=== PATIENT | female | born 1935 | race Caucasian/White ===

== ENCOUNTER 2022-05-08 20:33 | Outpatient (CLI) | payer MEDICARE, OTHER, SELFPAY | END 2022-05-08 20:34 | disposition home or self-care (01) | LOC: AMB 05-19 21:34 | PROVIDERS: PCP Surgery; Visit Provider Emergency Medicine Emergency Medical Services | DX: R11.2 Nausea with vomiting, unspecified (principal) | CPT/HCPCS: A0425; A0427 ==

== ENCOUNTER 2022-05-08 20:56 | Emergency (ER) | payer MEDICARE, OTHER, SELFPAY ==
[2022-05-08 21:02] VITALS: BP 160/100; PULSE 89; RESP 16; TEMP 36.4; O2SAT 98
--- NOTE | 2022-05-08 21:29 | ED.GENADULT ---
HPI - General Adult General Chief complaint: Nausea/Vomiting Stated complaint: Nausia Time Seen by Provider: 05/08/22 21:14 History of Present Illness HPI narrative: This 86-year-old woman comes in by ambulance after vomiting once after a meal this evening. She states that she feels out of it but does not have any specific complaints. She seems to be more concerned that she does not know what is going on or what is happening with her. Her daughter is present with her and states that she lives in the senior apartment. Her daughter states that her ability to function with activities of daily living has decreased. The patient does not report any pain and has not had any fevers. She does not have any physical symptoms but seems distressed because she does not know what is going on. Related Data Home Medications Medication Instructions Recorded Confirmed albuterol sulfate 90 mcg/actuation 2 puff INHALATION Q6H PRN 05/08/22 05/08/22 aerosol inhaler aspirin 81 mg capsule 81 mg PO DAILY 05/08/22 05/08/22 benzonatate 100 mg capsule 100 mg PO TID PRN 05/08/22 05/08/22 cholecalciferol (vitamin D3) 50 2,000 unit PO DAILY 05/08/22 05/08/22 mcg (2,000 unit) capsule (Vitamin D3) donepezil 5 mg tablet 5 mg PO HS 05/08/22 05/08/22 levothyroxine 50 mcg tablet 50 mcg PO DAILY 05/08/22 05/08/22 lorazepam 0.5 mg tablet (Ativan) 0.5 mg PO HS PRN 05/08/22 05/08/22 melatonin 3 mg capsule 3 mg PO HS 05/08/22 05/08/22 metoprolol succinate 25 mg 25 mg PO DAILY 05/08/22 05/08/22 tablet,extended release 24 hr omeprazole 20 mg capsule,delayed 20 mg PO DAILY 05/08/22 05/08/22 release risedronate 35 mg tablet 35 mg PO .weekly 05/08/22 05/08/22 sertraline 50 mg tablet 50 mg PO DAILY 05/08/22 05/08/22 tiotropium bromide 18 mcg capsule 1 cap INHALATION DAILY 05/08/22 05/08/22 with inhalation device (Spiriva with HandiHaler) vitamin A-vitamin C-vit E-min 1 tab PO DAILY 05/08/22 05/08/22 tablet (Ocutabs tablet) Allergies Allergy/AdvReac Type Severity Reaction Status Date / Time codeine Allergy Intermediate Hives Verified 05/08/22 21:06 lisinopril Allergy Intermediate Cough Verified 05/08/22 21:06 alendronate sodium AdvReac Intermediate Nausea Verified 05/08/22 21:06 Review of Systems Status of ROS: Reports: 10 or more systems reviewed and unremarkable except as noted in History and below Narrative: Constitutional: No fevers, no weight gain or loss. Eyes: No discharge. No vision changes. HENT: No congestion, no sore throat, no ear pain. Cardiovascular: No chest pain, no palpitations. Respiratory: No shortness of breath, no wheezes, no cough. Gastrointestinal: No abdominal pain, no vomiting, no diarrhea. Genitourinary: No dysuria, no hematuria. Musculoskeletal: Normal range of motion. Skin: No rashes, no pruritis. Neurological: No dizziness, weakness, sensory change, speech change. Endo/Heme/Allergies: No bruising or bleeding. No polydipsia. Pysch: no suicidality, no anxiety, no insomnia. She states that she is not aware of things and does not know what is happening. All other systems reviewed and are negative. 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 HEENT: Normocephalic, atraumatic. Neck: Normal range of motion. Nontender. Supple. Heart: Regular. No murmurs. Normal rate. Intact distal pulses. Lungs: Clear to auscultation. No chest discomfort. No wheezes, rhonchi, or rales. Abdomen: Normal bowel sounds. Nontender. No rebound tenderness. Genitalia: Deferred. Back: No midline tenderness. Normal range of motion. Extremities: Normal range of motion. No injury. Skin: Intact. No rash. Warm. No erythema or pallor. Neurologic: No altered sensation. No weakness. Alert and oriented. Psychiatric: No suicidality. No anxiety or depression. No insomnia. She appears distressed because she feels that she is not in tune with what is happening with her. Nursing notes and vitals signs are reviewed. Const: Vital Signs, click to edit/add: Vital Signs - 24 hr 05/08/22 21:02 Temperature 97.6 F Pulse Rate [Right Pulse Oximeter] 89 Respiratory Rate 16 Blood Pressure [Le ft Upper Arm] 160/100 H Pulse Oximetry 98 Course Vital Signs Vital signs: Initial Vital Signs Temperature 97.6 F 05/08/22 21:02 Temperature Source Temporal Artery Scan 05/08/22 21:02 Pulse Rate 89 05/08/22 21:02 Respiratory Rate 16 05/08/22 21:02 Blood Pressure 160/100 H 05/08/22 21:02 Blood Pressure Mean 120 05/08/22 21:02 Blood Pressure Position Supine 05/08/22 21:02 Pulse Oximetry 98 05/08/22 21:02 Oxygen Delivery Method 05/08/22 21:02 Vital Signs Temperature 97.6 F 05/08/22 21:02 Pulse Rate 89 05/08/22 21:02 Respiratory Rate 16 05/08/22 21:02 Blood Pressure 160/100 H 05/08/22 21:02 Pulse Oximetry 98 05/08/22 21:02 Temperature 97.6 F 05/08/22 21:02 Pulse Rate 89 05/08/22 21:02 Respiratory Rate 16 05/08/22 21:02 Blood Pressure 160/100 H 05/08/22 21:02 Pulse Oximetry 98 05/08/22 21:02 Medical Decision Making MDM Narrative Medical decision making narrative: This patient comes in stating that she does not know who she is and what she is doing. Her vital signs are normal. She also has normal lab and urine results essentially. The patient states that she wants to go home. She does live alone in a senior facility. She is here with her daughter who states that it seems that the patient's functions for her activities of daily living in are declining. She is okay to take her back home and will work on arrangements for a assisted living or memory care facility. Lab Data Labs: Lab Results 05/08/22 05/08/22 05/08/22 Range/Units 21:20 21:43 21:43 WBC 4.77 (4.50-11.00) K/uL RBC 4.54 (4.00-5.20) m/uL Hgb 12.1 (12.0-16.0) gm/dL Hct 39.4 (33.0-51.0) % MCV 87 (80-100) fL MCH 27 (26-34) pg MCHC 31 L (32-36) gm/dL RDW Coeff of Aristeo 14.3 (11.5-15.5) % Plt Count 218 (140-440) K/uL Neut % (Auto) 67.8 (42.0-72.0) % Lymph % (Auto) 20.8 (20-44) % [place] % (Auto) 7.3 (0.0-11.0) % Eos % (Auto) 2.9 (0.0-7.0) % Baso % (Auto) 1.0 (0.0-3.0) % Neut # (Auto) 3.23 (1.7-7.0) K/uL Lymph # (Auto) 0.99 (0.90-2.90) K/uL [place] # (Auto) 0.30 (0.00-0.90) K/UL Eos # (Auto) 0.14 (0.00-0.50) K/uL Baso # (Auto) 0.05 (0.00-0.30) K/uL Abs Immat Gran (auto) 0.01 (0.00-0.30) K/uL Sodium 138 (135-149) mmol/L Potassium 3.7 (3.6-5.1) mmol/L Chloride 104 (96-114) mmol/L Carbon Dioxide 26 (20-32) mmol/L BUN 20 (7-30) mg/dL Creatinine 0.9 (0.5-1.5) mg/dL Estimated GFR 62 ml/min Glucose 150 H (60-115) mg/dL Calcium 9.1 (8.4-10.6) mg/dL Urine Color Yellow (Yellow) Urine Appearance Clear (Clear) Urine pH 5.5 (5.0-8.5) Ur Specific [place] 1.015 (1.000-1.030) Urine Protein 1+ A (Negative) Urine Glucose (UA) Negative (Negative) Urine Ketones Negative (Negative) Urine Blood Trace-intact A (Negative) Urine Nitrite Negative (Negative) Urine Bilirubin Negative (Negative) Urine Urobilinogen 0.2 (0.2-1.0) Ur Leukocyte Esterase Negative (Negative) Urine RBC 0-2 (0-2) Urine WBC 0-2 (0-5) Ur Squamous Epith Cells None (None-Few) Urine Bacteria None (None) Discharge Plan Discharge Clinical Impression: Acute on chronic alteration in mental status Patient Disposition: Home, Self-Care Condition: Unchanged Instructions: Altered Mental Status (ED) Additional Instructions: Follow-up with primary physician. Return if worsening symptoms happen. Prescriptions: No Action albuterol sulfate 90 mcg/actuation HFA aerosol inhaler 2 puff INHALATION Q6H PRN0RF donepezil 5 mg tablet 5 mg PO HS 0RF levothyroxine 50 mcg tablet 50 mcg PO DAILY 0RF metoprolol succinate 25 mg tablet extended release 24 hr 25 mg PO DAILY 0RF omeprazole 20 mg capsule,delayed release(DR/EC) 20 mg PO DAILY 0RF risedronate 35 mg tablet 35 mg PO .weekly 0RF sertraline 50 mg tablet 50 mg PO DAILY 0RF Spiriva with HandiHaler 18 mcg capsule, w/inhalation device 1 cap INHALATION DAILY 0RF melatonin 3 mg capsule 3 mg PO HS 0RF Ocutabs Tablet 1 tab PO DAILY 0RF lorazepam [Ativan] 0.5 mg tablet 0.5 mg PO HS PRN0RF aspirin 81 mg capsule 81 mg PO DAILY 0RF cholecalciferol (vitamin D3) [Vitamin D3] 50 mcg (2,000 unit) capsule 2,000 unit PO DAILY 0RF benzonatate 100 mg capsule 100 mg PO TID PRN0RF Follow Up/Referrals: Gabriel Orozco MD [Primary Care Provider] - Stand Alone Forms: [facility] Info Instructions
[2022-05-08 21:50] LABS: Basophils Absolute Auto 0.05 K/uL (0.00-0.30); Eosinophils Absolute Auto 0.14 K/uL (0.00-0.50); Eosinophils Percent Auto 2.9 % (0.0-7.0); Hematocrit 39.4 % (33.0-51.0); Hemoglobin* 12.1 gm/dL (12.0-16.0); Immature Granulocytes Abs Auto 0.01 K/uL (0.00-0.30); Lymphocytes Absolute Auto 0.99 K/uL (0.90-2.90); Lymphocytes Percent Auto 20.8 % (20-44); Mean Corpuscular HGB Conc 31 gm/dL (32-36); Mean Corpuscular Hemoglobin 27 pg (26-34); Mean Corpuscular Volume 87 fL (80-100); Monocytes Percent Auto 7.3 % (0.0-11.0); Neutrophils Absolute Auto 3.23 K/uL (1.7-7.0); Neutrophils Percent Auto 67.8 % (42.0-72.0); Platelet Count* 218 K/uL (140-440); RDW Coefficient of Variation % 14.3 % (11.5-15.5); Red Blood Count 4.54 m/uL (4.00-5.20); White Blood Count* 4.77 K/uL (4.50-11.00)
[2022-05-08 22:08] LABS: Slide Review Reflex No
[2022-05-08 22:14] LABS: Chloride* 104 mmol/L (96-114)
[2022-05-08 22:15] LABS: Potassium* 3.7 mmol/L (3.6-5.1); Sodium* 138 mmol/L (135-149)
[2022-05-08 22:17] LABS: Creatinine* 0.9 mg/dL (0.5-1.5); Estimated Glomerular Filt Rate 62 ml/min
[2022-05-08 22:18] LABS: Blood Urea Nitrogen* 20 mg/dL (7-30); Calcium* 9.1 mg/dL (8.4-10.6); Carbon Dioxide* 26 mmol/L (20-32); Glucose* 150 mg/dL (60-115)
[2022-05-08 22:19] LABS: Appearance Urine Clear (Clear); Bilirubin Urine Negative (Negative); Blood Urine Trace-intact (Negative); Color Urine Yellow (Yellow); Glucose Urine Negative (Negative); Ketones Urine Negative (Negative); Leukocyte Esterase Urine Negative (Negative); Nitrite Urine Negative (Negative); Protein Urine 1+ (Negative); Specific Gravity Urine 1.015 (1.000-1.030); Urobilinogen Urine 0.2 (0.2-1.0); pH Urine 5.5 (5.0-8.5)
[2022-05-08 22:44] LABS: RBC Urine 0-2 (0-2); WBC Urine 0-2 (0-5)
[2022-05-08 23:14] VITALS: BP 145/89; PULSE 78; PULSE 80; RESP 16; TEMP 36.4; O2SAT 98
== END 2022-05-08 23:15 | disposition home or self-care (01) ==
PROVIDERS: Emergency Provider Emergency Medicine Emergency Medical Services; PCP Surgery
DX: R41.82 Altered mental status, unspecified (principal); Z73.9 Problem related to life management difficulty, unspecified
CPT/HCPCS: 36415; 80048; 81001; 85025; 99283; 99284

== ENCOUNTER 2022-06-16 08:47 | Outpatient (CLI) | payer MEDICARE, OTHER, SELFPAY | END 2022-06-16 08:48 | disposition home or self-care (01) | LOC: AMB 06-18 05:46 | PROVIDERS: PCP Surgery; Visit Provider Family Medicine | DX: S29.9XXA Unspecified injury of thorax, initial encounter (principal); W18.30XA Fall on same level, unspecified, initial encounter; Y92.003 Bedroom of unspecified non-institutional (private) residence as the place of occurrence of the external cause | CPT/HCPCS: A0425; A0427 ==

== ENCOUNTER 2022-06-16 09:10 | Observation (INO) | payer MEDICARE, OTHER, SELFPAY ==
[2022-06-16] VITALS (19 sets, daily range): BP systolic 111–167; BP diastolic 58–111; PULSE 62–90; RESP 14–18; TEMP 36.8–37; O2SAT 85–98; BMI 22.9
--- NOTE | 2022-06-16 09:36 | CRLHL7_ITS ---
For Patients: As a result of the Cures Act, medical imaging exams and procedure reports are released immediately into your electronic medical record. You may view this report before your referring provider. If you have questions, please contact your health care provider. INDICATION: Fall. COMPARISON: January 14, 2022. TECHNIQUE: Single view chest radiograph with 2 views of the ribs. Findings : Similar enlarged cardiomediastinal contours. New right lower lobe basilar opacity likely atelectasis. New small right pleural effusion. The no definite pneumothorax. Several right-sided rib fractures are mildly displaced involving the approximate 7th and 8th ribs. IMPRESSION: Mildly displaced right-sided 7th and 8th rib fractures with associated small right-sided pleural effusion, likely hemothorax. No definite pneumothorax. Dictated by Timbo Hylton MD @ 06/16/2022 10:50:00 AM (Electronically Signed)
--- NOTE | 2022-06-16 09:38 | ED_ITS ---
HPI - General Adult General Chief complaint: Rib Pain Stated complaint: Fall Time Seen by Provider: 06/16/22 09:22 Source: patient and family Mode of arrival: EMS Limitations: no limitations History of Present Illness HPI narrative: Elderly female coming in today after sustaining a fall 3 days ago. She is concerned about right-sided rib pain. She is here with her daughter who is concerned that over the last 24 hours the patient has been complaining of increasing rib pain. Because of this, perhaps, she has had a decreased appetite and this morning was unable to get out of her chair. Patient states that the pain is really bothering her. Pain is located over the right posterolateral upper ribs. Pain does not radiate. She denies feeling short of breath. Denies fevers or chills. States that yesterday she just did not feel hungry. She denies any anterior chest pain, or abdominal pain. She did not hit her head or lose consciousness. The fall was unwitnessed but the patient states that she was holding onto her walker with 1 hand in leaning over when she lost balance and fell onto her side. The walker fell on top of her. She was able to get the walker off of her but she required help from her son getting off of the floor. Patient does not know how long she waited on the floor for, daughter states it likely was not longer than 30 minutes has both she and the brother were away at the time when this occurred picking up the patient's bed. They have been slowly moving into [facility] over the last 2-3 weeks, into assisted living. She has not been nauseated or has vomited since the fall occurred. She has had no altered mental status, confusion, slurred speech or focal weakness. Denies any urinary or bowel changes. She denies any coughing that is new. Patient's daughter does state that the patient has lost about 10-15 lb over the last couple of weeks. She attributes this to the moving, and the patient has had a smaller appetite during this time. EMS was called today because the patient could hardly secondary to pain. Related Data Home Medications Medication Instructions Recorded Confirmed albuterol sulfate 90 mcg/actuation 2 puff inhalation Q6H PRN 05/08/22 05/08/22 aerosol inhaler aspirin 81 mg capsule 81 mg PO DAILY 05/08/22 06/16/22 cholecalciferol (vitamin D3) 50 2,000 unit PO DAILY 05/08/22 06/16/22 mcg (2,000 unit) capsule (Vitamin D3) donepezil 5 mg tablet 5 mg PO HS 05/08/22 06/16/22 levothyroxine 50 mcg tablet 50 mcg PO DAILY 05/08/22 06/16/22 lorazepam 0.5 mg tablet (Ativan) 0.5 mg PO HS PRN 05/08/22 06/16/22 melatonin 3 mg capsule 3 mg PO HS 05/08/22 06/16/22 metoprolol succinate 25 mg 25 mg PO DAILY 05/08/22 06/16/22 tablet,extended release 24 hr omeprazole 20 mg capsule,delayed 20 mg PO DAILY 05/08/22 06/16/22 release risedronate 35 mg tablet 35 mg PO .weekly 05/08/22 06/16/22 sertraline 50 mg tablet 50 mg PO DAILY 05/08/22 06/16/22 tiotropium bromide 18 mcg capsule 1 cap inhalation DAILY 05/08/22 06/16/22 with inhalation device (Spiriva with HandiHaler) vitamin A-vitamin C-vit E-min 1 tab PO DAILY 05/08/22 06/16/22 tablet (Ocutabs tablet) acetaminophen 650 mg 1,300 mg PO Q8H PRN 06/16/22 06/16/22 tablet,extended release (Arthritis Pain Relief (acetaminophen) ER) Allergies Allergy/AdvReac Type Severity Reaction Status Date / Time codeine Allergy Intermediate Hives Verified 06/16/22 09:19 lisinopril Allergy Intermediate Cough Verified 06/16/22 09:19 alendronate sodium AdvReac Intermediate Nausea Verified 06/16/22 09:19 Review of Systems Status of ROS: Reports: 10 or more systems reviewed and unremarkable except as noted in History and below [facility] Medical History Adrenal mass COPD (chronic obstructive pulmonary disease) Essential hypertension GERD (gastroesophageal reflux disease) Hiatal hernia Hypothyroidism 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 Alert and oriented. Answers questions appropriately. Mood and affect are appropriate. Thoughts are goal oriented and rational. No tangential or magical thinking noted. Patient speaks in full sentences without needing to catch her breath. She is hard of hearing. She does not appear ill or toxic. She appears to be in good spirits. HEENT: Normocephalic atraumatic. Pupils are equally round reactive to light. Extraocular muscles are intact. Conjunctivae are moist without any icterus noted. Slightly dry mucous membranes. Posterior pharynx is normal. Neck is soft and supple. Cardiovascular: Heart is regular rate and rhythm S1 and S2 are present without any murmurs. Occasional extra beat noted. Lungs: Clear to auscultation bilaterally no wheezes rhonchi or rales are appreciated. Patient takes deep breaths without significant discomfort. She has tenderness to palpation of the posterolateral ribs. No pain of the anterior chest wall. No bruising, abrasions, or erythema noted to the lateral chest wall where her pain is located. Abdomen: Soft and nontender nondistended with normal bowel sounds. No guarding or rebound. Extremities: Bilateral lower extremities are without edema. Normal DP and PT pulses. Skin: Well perfused without any obvious rashes. Back: No tenderness to palpation over the cervical, thoracic or lumbar spine. There is no bruising or erythema noted on the back. Patient is unable to sit up in bed secondary to pain. However, lying down she appears comfortable. Const: Vital Signs, click to edit/add: Vital Signs - 24 hr 06/16/22 09:15 06/16/22 09:19 06/16/22 09:19 Temperature 98.3 F Pulse Rate 77 Pulse Rate [Pulse Oximeter] 84 Respiratory Rate 14 Blood Pressure Blood Pressure [Ri ght Upper Arm] 165/90 H 165/90 H Pulse Oximetry 95 94 Oxygen Delivery Me thod Room Air 06/16/22 09:33 06/16/22 09:35 06/16/22 09:42 Temperature Pulse Rate 75 64 78 Pulse Rate [Pulse Oximeter] Respiratory Rate Blood Pressure 162/111 H 160/94 H Blood Pressure [Ri ght Upper Arm] Pulse Oximetry 96 94 96 Oxygen Delivery Me thod 06/16/22 09:43 06/16/22 10:13 06/16/22 10:27 Temperature Pulse Rate 68 75 62 Pulse Rate [Pulse Oximeter] Respiratory Rate Blood Pressure 167/82 H Blood Pressure [Ri ght Upper Arm] Pulse Oximetry 96 95 94 Oxygen Delivery Me thod 06/16/22 10:28 Temperature Pulse Rate 65 Pulse Rate [Pulse Oximeter] Respiratory Rate Blood Pressure Blood Pressure [Ri ght Upper Arm] Pulse Oximetry 89 Oxygen Delivery Me thod Course Reevaluation(s) Reevaluation #1: At rest, patient is not having any significant discomfort however any movement causes significant pain to the point where she cannot get up out of bed at all. When asked if she wanted more pain medication patient stated that as long as she sits still she was fine and so she refused. Vital Signs Vital signs: Initial Vital Signs Blood Pressure 165/90 H 06/16/22 09:15 Blood Pressure Mean 115 06/16/22 09:15 Blood Pressure Position Supine 06/16/22 09:15 Vital Signs Blood Pressure 165/90 H 06/16/22 09:15 Temperature 98.3 F 06/16/22 09:19 Pulse Rate 65 06/16/22 10:28 Respiratory Rate 14 06/16/22 09:19 Blood Pressure 167/82 H 06/16/22 10:27 Pulse Oximetry 89 06/16/22 10:28 Oxygen Delivery Method 06/16/22 09:19 Medical Decision Making [facility] Narrative Medical decision making narrative: 86-year-old female status post a fall and to broken ribs, probable small hemothorax. Patient received pain medicine in the ambulance which she states helped with her pain quite a bit. However, despite this, she was still unable to get up while she was in the hospital to use the bathroom. At this time I do not see how patient will thrive without pain management and extra help to do her daily activities, therefore patient will be admitted for observation and further management. Medical Records Medical records reviewed: Yes I reviewed the patient's medical records Lab Data Lab results reviewed: Yes I reviewed the patient's lab results Labs: Lab Results 06/16/22 06/16/22 06/16/22 Range/Units 10:16 10:16 10:16 WBC 6.18 (4.50-11.00) K/uL RBC 4.73 (4.00-5.20) m/uL Hgb 12.8 (12.0-16.0) gm/dL Hct 40.8 (33.0-51.0) % MCV 86 (80-100) fL MCH 27 (26-34) pg MCHC 31 L (32-36) gm/dL RDW Coeff of Aristeo 14.5 (11.5-15.5) % Plt Count 214 (140-440) K/uL Neut % (Auto) 76.9 H (42.0-72.0) % Lymph % (Auto) 12.1 L (20-44) % [place] % (Auto) 9.4 (0.0-11.0) % Eos % (Auto) 1.1 (0.0-7.0) % Baso % (Auto) 0.3 (0.0-3.0) % Neut # (Auto) 4.80 (1.7-7.0) K/uL Lymph # (Auto) 0.70 L (0.90-2.90) K/uL [place] # (Auto) 0.60 (0.00-0.90) K/UL Eos # (Auto) 0.07 (0.00-0.50) K/uL Baso # (Auto) 0.02 (0.00-0.30) K/uL Abs Immat Gran (auto) 0.01 (0.00-0.30) K/uL Sodium 135 (135-149) mmol/L Potassium 4.0 (3.6-5.1) mmol/L Chloride 105 (96-114) mmol/L Carbon Dioxide 25 (20-32) mmol/L BUN 16 (7-30) mg/dL Creatinine 0.7 (0.5-1.5) mg/dL Estimated GFR 84 ml/min Glucose 142 H (60-115) mg/dL Lactate (0.5-1.9) mmol/L Calcium 9.1 (8.4-10.6) mg/dL Total Bilirubin 0.6 Cancelled (0.1-1.5) mg/dL Direct Bilirubin 0.2 Cancelled (0.0-0.5) mg/dL AST 23 Cancelled (12-35) U/L ALT 13 Cancelled (4-35) U/L Alkaline Phosphatase 69 Cancelled (40-150) U/L Troponin I < 0.01 L Cancelled (0.01-0.04) ng/mL C-Reactive Protein 1.1 H (0.5-1.0) mg/dL Total Protein 6.9 Cancelled (6.0-8.3) g/dL Albumin 3.9 Cancelled (3.3-5.0) g/dL SARS-CoV-2 (PCR) (Negative) 06/16/22 06/16/22 Range/Units 10:16 10:53 WBC (4.50-11.00) K/uL RBC (4.00-5.20) m/uL Hgb (12.0-16.0) gm/dL Hct (33.0-51.0) % MCV (80-100) fL MCH (26-34) pg MCHC (32-36) gm/dL RDW Coeff of Aristeo (11.5-15.5) % Plt Count (140-440) K/uL Neut % (Auto) (42.0-72.0) % Lymph % (Auto) (20-44) % [place] % (Auto) (0.0-11.0) % Eos % (Auto) (0.0-7.0) % Baso % (Auto) (0.0-3.0) % Neut # (Auto) (1.7-7.0) K/uL Lymph # (Auto) (0.90-2.90) K/uL [place] # (Auto) (0.00-0.90) K/UL Eos # (Auto) (0.00-0.50) K/uL Baso # (Auto) (0.00-0.30) K/uL Abs Immat Gran (auto) (0.00-0.30) K/uL Sodium (135-149) mmol/L Potassium (3.6-5.1) mmol/L Chloride (96-114) mmol/L Carbon Dioxide (20-32) mmol/L BUN (7-30) mg/dL Creatinine (0.5-1.5) mg/dL Estimated GFR ml/min Glucose (60-115) mg/dL Lactate 1.0 (0.5-1.9) mmol/L Calcium (8.4-10.6) mg/dL Total Bilirubin (0.1-1.5) mg/dL Direct Bilirubin (0.0-0.5) mg/dL AST (12-35) U/L ALT (4-35) U/L Alkaline Phosphatase (40-150) U/L Troponin I (0.01-0.04) ng/mL C-Reactive Protein (0.5-1.0) mg/dL Total Protein (6.0-8.3) g/dL Albumin (3.3-5.0) g/dL SARS-CoV-2 (PCR) Negative SARS-CoV-2 (Negative) Imaging Data Rib x-rays: Attestation: I have reviewed the pertinent imaging results. Radiologist's impression: Findings : Similar enlarged cardiomediastinal contours. New right lower lobe basilar opacity likely atelectasis. New small right pleural effusion. The no definite pneumothorax. Several right-sided rib fractures are mildly displaced involving the approximate 7th and 8th ribs. IMPRESSION: Mildly displaced right-sided 7th and 8th rib fractures with associated small right-sided pleural effusion, likely hemothorax. No definite pneumothorax. ECG Data Attestation: I personally reviewed and interpreted this ECG as follows: (Sinus rhythm with premature atrial complexes, pulse 82) Discharge Plan Discharge Clinical Impression: Frail elderly, Fracture, ribs Patient Disposition: Admitted As Inpatient Condition: Stable
[2022-06-16] MEDS: 0.9 % SODIUM CHLORIDE 500 ML 500 ML IV (10:27)
[2022-06-16 10:28] LABS: Basophils Absolute Auto 0.02 K/uL (0.00-0.30); Basophils Percent Auto 0.3 % (0.0-3.0); Eosinophils Absolute Auto 0.07 K/uL (0.00-0.50); Eosinophils Percent Auto 1.1 % (0.0-7.0); Hematocrit 40.8 % (33.0-51.0); Hemoglobin* 12.8 gm/dL (12.0-16.0); Immature Granulocytes Abs Auto 0.01 K/uL (0.00-0.30); Lymphocytes Percent Auto 12.1 % (20-44); Mean Corpuscular HGB Conc 31 gm/dL (32-36); Mean Corpuscular Hemoglobin 27 pg (26-34); Mean Corpuscular Volume 86 fL (80-100); Monocytes Percent Auto 9.4 % (0.0-11.0); Neutrophils Percent Auto 76.9 % (42.0-72.0); Platelet Count* 214 K/uL (140-440); RDW Coefficient of Variation % 14.5 % (11.5-15.5); Red Blood Count 4.73 m/uL (4.00-5.20); Slide Review Reflex No; White Blood Count* 6.18 K/uL (4.50-11.00)
--- NOTE | 2022-06-16 10:29 | ED.NURSE ---
A fib alarm on monitor, MD notified. Repeat EKG done. A-fib not shown on EKG.
[2022-06-16 10:39] LABS: Albumin* 3.9 g/dL (3.3-5.0); Chloride* 105 mmol/L (96-114)
[2022-06-16 10:40] LABS: Sodium* 135 mmol/L (135-149)
[2022-06-16 10:42] LABS: Creatinine* 0.7 mg/dL (0.5-1.5); Estimated Glomerular Filt Rate 84 ml/min
[2022-06-16 10:43] LABS: Alanine Aminotransferase* 13 U/L (4-35); Alkaline Phosphatase* 69 U/L (40-150); Aspartate Amino Transferase* 23 U/L (12-35); Bilirubin Direct* 0.2 mg/dL (0.0-0.5); Bilirubin Total* 0.6 mg/dL (0.1-1.5); Blood Urea Nitrogen* 16 mg/dL (7-30); Carbon Dioxide* 25 mmol/L (20-32); Glucose* 142 mg/dL (60-115); Total Protein* 6.9 g/dL (6.0-8.3)
[2022-06-16 10:44] LABS: Calcium* 9.1 mg/dL (8.4-10.6)
[2022-06-16 10:46] LABS: C Reactive Protein* 1.1 mg/dL (0.5-1.0)
--- NOTE | 2022-06-16 10:57 | ED.NURSE ---
Attempted to collect UA, pt unable to sit up to transfer to wheelchair due to pain in R ribs. Pt requesting to use bedpan to provide sample. Pt already incontinent of urine in brief. Brief removed, pt urinated before bedpan was placed under her. Pt cleaned and new brief applied.
[2022-06-16 11:00] LABS: Troponin I* < 0.01 ng/mL (0.01-0.04)
--- NOTE | 2022-06-16 11:08 | ED.NURSE ---
After 1030 BP reading, filing writer noted small hematoma on pt's right anterior bicep, Hematoma was approx pen-sized. BP's discontinued from R arm. At 1100, filing writer noticed hematoma was slightly larger. Measurement of hematoma now approx 2cmx1.5cm. notified, filing writer continuing to withhold from BP readings on R arm at this time.
--- NOTE | 2022-06-16 11:13 | W.PC.EDHO ---
Primary Language: Occitan ([facility]) Preferred Language: Orientation Status: [] Alert & Oriented [x] Slight Confusion [] Known Dx Dementia Transfers By: [] Assist of 1 [x] Assist of 2 [] Lift Active Medications Discontinued Medications Generic Name Dose Route Start Last Admin Trade Name Krissy PRN Reason Stop Dose Admin Sodium Chloride 500 mls @ 500 mls/hr 06/16/22 09:45 06/16/22 10:27 0.9 % Sodium Chloride 500 Ml IV 06/16/22 10:44 500 mls/hr .Q1H ONE Administration Description of Symptoms ED Triage Present Problem Patient was putting belongings away, kneeling on Description floor. Fell to the side, hitting right ribs on a chest. This happened . Pain to ribs since, tylenol not helping. EMS administered 25mcg fentanyl, blood sugar 188. ED Triage Date of Onset of 06/13/22 Symptoms Moline Coma Scale Moline coma scale total score 15 Pain Pain Description [Right Upper Sharp Lateral Abdomen] Pain Description [Right Upper Sharp Lateral Abdomen] Pain Intensity [Right Upper 9 Lateral Abdomen] Pain Intensity [Right Upper 10 Lateral Abdomen] Pain Intensity 10 Pain Intensity 9 Pain Scale Used [Right Upper Numeric (1 - 10) Lateral Abdomen] Pain Scale Used [Right Upper Numeric (1 - 10) Lateral Abdomen] Pain Scale Used Numeric (1 - 10) Pain Scale Used Numeric (1 - 10) IV Insertion/Site Date of IV Line Insertion [ 06/16/22 Left Antecubital] Oxygen Administration Pulse Oximetry 89 Pulse Oximetry 94 Pulse Oximetry 95 Pulse Oximetry 96 Pulse Oximetry 96 Pulse Oximetry 94 Pulse Oximetry 96 Pulse Oximetry 94 Pulse Oximetry 95 Oxygen Delivery Method Room Air Cardiac Monitoring EKG Method 12 Lead
--- NOTE | 2022-06-16 11:14 | ED.NURSE ---
Pt complaining of itching throughout L arm. IV site checked with Kenya RN. IV appears patent, skin color and appearance WNL. NS infusion running without issue. Cool washcloth applied to pt L arm to relieve itching sensation. notified.
--- NOTE | 2022-06-16 11:20 | ED.NURSE ---
Pt reporting pain in her R ribs. Dumper Bailer Operator asked if pt wanted medication for pain, pt declined at this time.
--- NOTE | 2022-06-16 11:48 | ED.NURSE ---
Pt incontinent of urine again, pt cleaned and new brief applied. Red rash noted in pt L inguinal area during brief change. Skin on pt perineum and genitals also appears reddened. Pt also complaining of continued itching in her L arm near IV site. IV appears patent. Slasher Hand and Anna ROCK assessed IV site and patency. Pt does have a bulge under skin on medial aspect of L arm (and R arm) near artery. When IV flushed, no change in bulge size, appearance, or sensation. NS infusion continued after assessment. MD Cesar notified of all these findings.
[2022-06-16 11:52] LABS: SARS PCR* Negative SARS-CoV-2 (Negative)
--- NOTE | 2022-06-16 12:10 | ED.NURSE ---
Pt hematoma on R bicep reassessed. No change in size, still 2cmx1.5cm.
--- NOTE | 2022-06-16 12:20 | ED.NURSE ---
Pt taken down to floor by House Sup.
[2022-06-16] MEDS: LIDOCAINE 5% PATCH 1 PATCH TRANSDERMA (13:48)
[2022-06-16 14:21] LABS: Appearance Urine Clear (Clear); Bilirubin Urine Negative (Negative); Blood Urine Trace-intact (Negative); Color Urine Yellow (Yellow); Glucose Urine Negative (Negative); Ketones Urine Negative (Negative); Leukocyte Esterase Urine Negative (Negative); Nitrite Urine Negative (Negative); Protein Urine Negative (Negative); Specific Gravity Urine 1.015 (1.000-1.030); Urobilinogen Urine 0.2 (0.2-1.0)
[2022-06-16 14:25] LABS: Amorphous Sediment Urine Few; Bacteria Urine Few; RBC Urine 0-2 (0-2); Squamous Epithelial Cell Urine Moderate (None-Few); WBC Urine 0-2 (0-5)
--- NOTE | 2022-06-16 14:44 | PM.IMHP1 ---
Hospitalist- H&P: HPI History of Present Illness Time Seen by Provider: 12:00 Date Seen: 06/16/22 Chief complaint: Fall Narrative: Amberly Darnell is a 86 year old woman who less than 1 week ago moved from [facility] in [place] to another, [place]. In the process of making that move this past , she was sitting on a chair and leaned to move some kelley when she fell off of the chair striking a [place] chest with the right posterior lateral aspect of her chest and then to the floor. Denies loss of consciousness from this episode. She has had right posterior lateral chest discomfort since then that has not been amenable to acetaminophen analgesia. She presents to the emergency department for assessment of the same. The chest pain is constant. Chest pain is more intense with deep breathing. Chest pain not as bothersome if she does not take deep breaths. Again the pain is persistent and unrelenting and not responding to acetaminophen analgesia therapy. Denies any associated chest heaviness, pressure, or tightness. Denies syncope or near-syncope. Denies palpitations or fluttering. Denies shortness of breath at rest, dyspnea with exertion, paroxysmal nocturnal dyspnea, or orthopnea. Denies cough. Denies fevers, rigors, or diaphoresis. Denies nausea or vomiting. Has had a decreased appetite with the increased pain. Has had no blood loss of any sort. Has had no other trauma or injury or travel. Has not had any other recent illnesses. Review of Systems Status of ROS: Reports: 10 or more systems reviewed and unremarkable except as noted in History and below Narrative: Known to have osteoporosis. Taking her medication regimen for the same at this juncture. Has had no focal motor neurologic deficits. It is becoming increasingly difficult for her to care for herself independently in her home because of this pain. Does use a walker for ambulation. Difficult for her to use her walker due to the discomfort in the right posterior lateral aspect of her chest. Denies dysuria, urgency, frequency, hematuria. On asking her multiple times she does acknowledge that at times she does have urinary incontinence. Denies diarrhea or constipation. No blood loss of any sort. No other extremity pain. No other neurologic changes. Peripheral neuropathy pain adequately managed. Denies recent worsening of breathing concerns. Taking her medications as prescribed. Following with her primary care physician, Dr. Orozco. Requests an attempt at resuscitation if cardiopulmonary demise occurs in a witnessed setting. Otherwise request comfort measures only. Designates her daughter and son as her fierro of dat instructor for health should that be required, in the order of daughter and then son. 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 Osteoporosis Paroxysmal SVT (supraventricular tachycardia) Peripheral neuropathy Sensorineural hearing loss of both ears Spinal stenosis Vitamin D deficiency Surgical History History of hysterectomy Previous back surgery S/P knee replacement S/P laparotomy S/P repair of paraesophageal hernia Status post appendectomy Status post left knee replacement Status post tonsillectomy Family History Father COPD (chronic obstructive pulmonary disease) High blood pressure Mother Dementia Psychiatric illness Social History Smoking Status: Never smoker Do you use any of these nicotine containing products: None Second hand tobacco smoke exposure: No How often do you have a drink containing alcohol: monthly or less How often do you have six or more drinks on one occasion: Never AUDIT-C Alcohol total score: 1 Non-prescribed substance use: denies use Gender Identity: female Meds Home Medications and Allergies Home Medications Medication Instructions Recorded Confirmed Type albuterol sulfate 90 mcg/actuation 2 puff inhalation Q6H PRN 05/08/22 06/16/22 History aerosol inhaler aspirin 81 mg capsule 81 mg PO DAILY 05/08/22 06/16/22 History cholecalciferol (vitamin D3) 50 2,000 unit PO DAILY 05/08/22 06/16/22 History mcg (2,000 unit) capsule (Vitamin D3) donepezil 5 mg tablet 5 mg PO HS 05/08/22 06/16/22 History levothyroxine 50 mcg tablet 50 mcg PO DAILY 05/08/22 06/16/22 History lorazepam 0.5 mg tablet (Ativan) 0.5 mg PO HS PRN 05/08/22 06/16/22 History melatonin 3 mg capsule 3 mg PO HS 05/08/22 06/16/22 History metoprolol succinate 25 mg 25 mg PO DAILY 05/08/22 06/16/22 History tablet,extended release 24 hr omeprazole 20 mg capsule,delayed 20 mg PO DAILY 05/08/22 06/16/22 History release risedronate 35 mg tablet 35 mg PO .weekly 05/08/22 06/16/22 History sertraline 50 mg tablet 50 mg PO DAILY 05/08/22 06/16/22 History tiotropium bromide 18 mcg capsule 1 cap inhalation DAILY 05/08/22 06/16/22 History with inhalation device (Spiriva with HandiHaler) acetaminophen 650 mg 1,300 mg PO Q8H PRN 06/16/22 06/16/22 History tablet,extended release (Arthritis Pain Relief (acetaminophen) ER) vit A 300 mcg-C 200 mg-E 27 1 tab PO DAILY 06/16/22 06/16/22 History mg-lutein 2 mg and minerals tablet (I-Maribel) Allergies Allergy/AdvReac Type Severity Reaction Status Date / Time codeine Allergy Intermediate Hives Verified 06/16/22 09:19 lisinopril Allergy Intermediate Cough Verified 06/16/22 09:19 alendronate sodium AdvReac Intermediate Nausea Verified 06/16/22 09:19 Exam Narrative: Exam Narrative: Appears comfortable when I see her. No acute distress. Laying comfortably on exam table emergency department. Alert, oriented to self, place, time, situation. Articulate, friendly, cooperative. Mood and affect are congruent. Even with her hearing aids in place she is very hard of hearing. Vision is grossly normal. No conjunctival injection or icterus. Pupils equally round and reactive to light and accommodation. Extraocular muscles are intact. Normal nasal mucosa and buccal mucosa. Dentition in fair repair. Neck is supple. Decreased range of motion in all directions consistent with known osteoarthritis. No JVD, hepatojugular reflux, or carotid bruits. Midline thyroid. No obvious adenopathy of the neck region. Lungs are clear to auscultation. No wheezing, rhonchi, or rales. Kyphotic posture. No obvious hematomas or ecchymoses on the chest wall. Tender right posterior lateral aspect. No CVA tenderness. Heart tones with regular rhythm and occasional ectopy. Abdomen with active bowel sounds, soft, nontender. Extremities without edema. Transfers and ambulates with use of walker and assist of 1 with much difficulty due to pain. Const: Vital Signs, click to edit/add: Vital Signs - 24 hr 06/16/22 09:15 06/16/22 09:19 06/16/22 09:19 Temperature 98.3 F Pulse Rate 77 Pulse Rate [Pulse Oximeter] 84 Respiratory Rate 14 Blood Pressure Blood Pressure [Ri ght Upper Arm] 165/90 H 165/90 H Pulse Oximetry 95 94 Oxygen Delivery Me thod Room Air 06/16/22 09:33 06/16/22 09:35 06/16/22 09:42 Temperature Pulse Rate 75 64 78 Pulse Rate [Pulse Oximeter] Respiratory Rate Blood Pressure 162/111 H 160/94 H Blood Pressure [Ri ght Upper Arm] Pulse Oximetry 96 94 96 Oxygen Delivery Me thod 06/16/22 09:43 06/16/22 10:13 06/16/22 10:27 Temperature Pulse Rate 68 75 62 Pulse Rate [Pulse Oximeter] Respiratory Rate Blood Pressure 167/82 H Blood Pressure [Ri ght Upper Arm] Pulse Oximetry 96 95 94 Oxygen Delivery Ga thod 06/16/22 10:28 06/16/22 12:38 06/16/22 11:35 Temperature 98.3 F Pulse Rate 65 73 Pulse Rate [Pulse Oximeter] Respiratory Rate 14 Blood Pressure Blood Pressure [Ri ght Upper Arm] Pulse Oximetry 89 95 85 L Oxygen Delivery Ga thod Room Air 06/16/22 12:00 06/16/22 13:09 Temperature Pulse Rate 67 Pulse Rate [Pulse Oximeter] Respiratory Rate Blood Pressure Blood Pressure [Ri ght Upper Arm] Pulse Oximetry 95 98 Oxygen Delivery Ga thod Room Air Hospitalist - H&P: Result Labs Labs: Short CBC 06/16/22 Range/Units 10:16 WBC 6.18 (4.50-11.00) K/uL Hgb 12.8 (12.0-16.0) gm/dL Hct 40.8 (33.0-51.0) % Plt Count 214 (140-440) K/uL BMP 06/16/22 10:16 Sodium 135 Potassium 4.0 Chloride 105 Carbon Dioxide 25 BUN 16 Creatinine 0.7 Glucose 142 H Calcium 9.1 Cardiac Enzymes 06/16/22 06/16/22 Range/Units 10:16 10:16 Troponin I < 0.01 L Cancelled (0.01-0.04) ng/mL Liver Function 06/16/22 06/16/22 Range/Units 10:16 10:16 Total Bilirubin 0.6 Cancelled (0.1-1.5) mg/dL Direct Bilirubin 0.2 Cancelled (0.0-0.5) mg/dL AST 23 Cancelled (12-35) U/L ALT 13 Cancelled (4-35) U/L Alkaline Phosphatase 69 Cancelled (40-150) U/L Albumin 3.9 Cancelled (3.3-5.0) g/dL Urine 06/16/22 Range/Units 14:02 Urine Color Yellow (Yellow) Urine Appearance Clear (Clear) Urine pH 6.0 (5.0-8.5) Ur Specific [place] 1.015 (1.000-1.030) Urine Protein Negative (Negative) Urine Glucose (UA) Negative (Negative) Imaging Chest x-ray: Attestation: I have reviewed the pertinent imaging results. Radiologist's impression: Mildly displaced right-sided 7th and 8th rib fractures with associated small right-sided pleural effusion, likely hemothorax. No definite pneumothorax. Assessment and Plan Assessment and plan (1) Right rib fracture: Problem comment: 7th and 8th, posterior lateral, mild displacement, status post fall Status: Acute (2) Pleural effusion on right: Problem comment: Small, most likely a hemothorax status post fall Status: Acute (3) Right-sided chest wall pain: Problem comment: Due to rib fractures Status: Acute Assessment and Plan: 1. Schedule acetaminophen. 2. Schedule Lidoderm patch application on for 12 hours off for 12 hours. 3. Tramadol as needed for breakthrough pain. 4. Heat or ice locally as needed. (4) Osteoporosis: Status: Acute (5) Frail elderly: Status: Acute Assessment and Plan: 1. Will ask Physical therapy, Occupational therapy, and social media sr strategy manager work with the patient and her family to establish a safe discharge disposition plan Plan 1. Continue with other supportive efforts for other underlying medical conditions. 2. Reassess labs in the morning.
[2022-06-16] MEDS: ACETAMINOPHEN 325 MG TABLET 650 MG PO ×2 (17:28→21:00)
[2022-06-16] MEDS: ALBUTEROL SULFATE 2.5 MG/3 ML VIAL.NEB NEB ×2 (17:28→21:00)
--- NOTE | 2022-06-16 18:09 | PC.NURSE ---
Addendum entered by Jeremiah Vincent RN 06/16/22 19:01: Pt up to BSC with Ax2, walker and GB. increased pain with this - Ultram and ice pack given after movement. resting comfortably in bed. Original Note: Pt up to m/s floor at 1220 for admission due to R rib fx. no bruising or skin discoloration noted yet. Tender to touch and pt shouts in pain with repo. Lido patch applied. tylenol given. Erythema/rash to bilateral groin and perineum. barrier cream applied and order obtained for nystatin powder. Pt reports this is on and off for her. Pt is incontinent of urine, UA obtained via straight cath clean catch. afebrile. Tele shows sinus arrhythmia with BBB and PVC's. COPD hx - neb given. LS CTA. 02 sats 98%. Pt reports weakness and unsteady on feet, refused BSC. Will continue to encourage movement and ambulation as tolerated.
[2022-06-16] MEDS: TRAMADOL HCL 50 MG TABLET 25 MG PO (18:51)
[2022-06-16] MEDS: NYSTATIN CREAM 30 GM 1 APPLIC TOPICAL (21:00)
[2022-06-16] MEDS: DONEPEZIL 5 MG TABLET PO (21:01)
[2022-06-16] MEDS: MELATONIN 3 MG TABLET PO (22:33)
[2022-06-17 03:00] VITALS: BP 125/83; PULSE 77; RESP 16; TEMP 37; O2SAT 94
[2022-06-17] MEDS: TRAMADOL HCL 50 MG TABLET 25 MG PO ×3 (05:09→20:21)
[2022-06-17] MEDS: ONDANSETRON ODT 4 MG TAB PO (05:16)
[2022-06-17] MEDS: LORazepam 0.5 MG TABLET PO (05:42)
[2022-06-17] MEDS: HYDROmorphone 0.5 mg/0.5 ml inj 0.2 MG IVP (06:20)
[2022-06-17] MEDS: LEVOTHYROXINE 50 MCG TABLET PO (06:40)
[2022-06-17] MEDS: OMEPRAZOLE 20 MG CAPSULE DR PO (06:40)
[2022-06-17 07:00] VITALS: BP 140/83; PULSE 89; PULSE 90; RESP 16; RESP 18; TEMP 36.8; O2SAT 93
--- NOTE | 2022-06-17 07:22 | PC.NURSE ---
[id number] Pt pleasant and cooperative, Pain not well controlled with oral pain meds, tolerable at rest, increases 10/10 with movement. pivot to bsc with walker, 1 assist. Approx 0500 pt put economics analyst light, experiencing exruciating pain, sat up on edge of bed, Lung sounds clear and present in all anderson, O2-94%, administered prn pain tramadol, N/V present, administered oral zofran, pt had emesis approx 5 min after med administration. administered prn ativan which helped relieve some of her pain/n/v. Eric updated, ordered 1 time dose of iv zofran along with once dilaudid. By time orders came thru and were verified N was resolved, administered 0.2mg dilaudid with relief RR-12, O2-92%,pt appeared more relaxed and comfortable, states pain 0/10 without movement, continued to monitor pt. Of note, Pt states itching at IV site after dilaudid administration, which was diluted in 10cc NS, isolated to L AC. Pt currently resting well
[2022-06-17] MEDS: ALBUTEROL SULFATE 2.5 MG/3 ML VIAL.NEB NEB ×4 (09:31→20:21)
[2022-06-17] MEDS: ACETAMINOPHEN 325 MG TABLET 650 MG PO ×4 (09:32→20:21)
[2022-06-17] MEDS: METOPROLOL SUCCINATE (XL) 25 MG TAB PO (09:33)
[2022-06-17] MEDS: NYSTATIN CREAM 30 GM 1 APPLIC TOPICAL ×2 (09:33→20:22)
[2022-06-17] MEDS: SERTRALINE 50 MG TABLET PO (09:33)
--- NOTE | 2022-06-17 10:55 | NUTR.NU ---
RDN with RN consult related to eating poorly and weight loss. RDN attempted to visit with patient, however sometimes she was not able to hear very well during visit. She reported she has been doing ok recently with meals. She reports pain when she moves. Per MD report, 'Has had a decreased appetite with the increased pain.' Current diet is Regular. Meal intakes have ranged from 75-100% since admit which is adequate. Weight 05/08/22 130 lbs; current weight 125 lbs. Weight loss is not significant. With stable weight and adequate oral intakes, no nutrition interventions at this time. RDN will continue to monitor and follow-up prn.
[2022-06-17 11:00] VITALS: BP 125/61; PULSE 91; RESP 18; TEMP 36.2; O2SAT 93
[2022-06-17] MEDS: LIDOCAINE 5% PATCH 1 PATCH TRANSDERMA (13:13)
[2022-06-17 15:00] VITALS: BP 128/85; PULSE 65; PULSE 71; RESP 18; TEMP 36.4; O2SAT 93
--- NOTE | 2022-06-17 15:45 | PM.IMPN1 ---
Progress Note: A&P Assessment and plan (1) Fall against object: Status: Acute (2) Right-sided chest wall pain: Problem details: Due to rib fractures Status: Acute (3) Right rib fracture: Problem details: 7th and 8th, posterior lateral, mild displacement, status post fall Status: Acute (4) Pleural effusion on right: Problem details: Small, most likely a hemothorax status post fall Status: Acute (5) Osteoporosis: Status: Acute (6) Gait instability: Status: Acute (7) At risk for falls: Status: Acute (8) Frail elderly: Status: Acute Plan 1. Reviewed the situation with the patient, her daughter, her son. 2. Continue with assessment efforts in order to render meaningful recommendations. 3. Patient is very hard of hearing and it is taking more time to sort through her current situation and circumstances. 4. Continue with supportive efforts including pain management efforts and antiemetic efforts. Time Spent With Patient Total time spent: 30 minutes Subjective Time Seen by Provider: 09:30 Date Seen: 06/17/22 Interval history: Hospital day 2. 86-year-old woman who fell while sitting and struck her chest against a cedar chest, sustaining multiple fractures of her ribs. She tells me her pain is well controlled if she does not move. Pain is more bothersome when she moves. Able to transfer with difficulty and support. Ambulates more easily again with support and use of her 4 wheeled walker. Not able to safely care for herself at this juncture, such as lower extremity dressing and undressing. She tells me she does not want to trouble her family to help her at this juncture. We are still in the process of trying to assess her with physical and occupational therapy before rendering recommendation as to whether not she will need transitional care services, verses assisted living services with in creased support. Exam Narrative: Exam Narrative: No acute distress. Appears comfortable when laying still. Very hard of hearing. Alert, oriented to self, place, time, situation. Not very realistic as to how long she could stay in the hospital. She tells me she went mind stain here for a couple weeks while she recovers. Articulate, cooperative, friendly. Mood and affect are congruent. Lungs actually are clear at this time without wheezing, rhonchi, or rales. Heart tones with regular rhythm, normal S1-S2. Abdomen with active bowel sounds, soft, nontender. No focal motor neurologic deficits. Const: Vital Signs, click to edit/add: Vital Signs - 24 hr 06/16/22 17:04 06/16/22 19:45 06/16/22 22:55 Temperature 98.6 F Pulse Rate 90 Pulse Rate [Left R adial] 83 81 Respiratory Rate 16 16 Blood Pressure [Ri ght Arm] 135/71 Pulse Oximetry 94 Oxygen Delivery Me thod Room Air Oxygen Flow Rate 0 06/16/22 22:55 06/16/22 23:00 06/17/22 03:00 Temperature 98.6 F 98.6 F Pulse Rate 90 Pulse Rate [Left R adial] 81 77 Respiratory Rate 16 16 Blood Pressure [Ri ght Arm] 121/58 L 125/83 Pulse Oximetry 92 94 Oxygen Delivery Me thod Room Air Room Air Oxygen Flow Rate 0 0 06/17/22 07:00 06/17/22 07:00 06/17/22 07:00 Temperature 98.3 F Pulse Rate 90 Pulse Rate [Left R adial] 89 89 Respiratory Rate 16 18 Blood Pressure [Ri ght Arm] 140/83 H Pulse Oximetry 93 Oxygen Delivery Me thod Room Air Oxygen Flow Rate 0 06/17/22 11:00 Temperature 97.1 F L Pulse Rate Pulse Rate [Left R adial] 91 Respiratory Rate 18 Blood Pressure [Ri ght Arm] 125/61 Pulse Oximetry 93 Oxygen Delivery Me thod Room Air Oxygen Flow Rate 0 Documenting provider has reviewed patient's vital signs: yes
[2022-06-17 19:00] VITALS: BP 124/64; PULSE 71; RESP 18; TEMP 36.4; O2SAT 90
--- NOTE | 2022-06-17 19:44 | PC.NURSE ---
Pain better controlled today with lido patch, ultram, tyl vs. yesterday. Patch removal time moved up to 2100 tonight for patch to be on during wake hours tomorrow. Will plan to encourage independence tonight and assess pt ability to return back to [facility] with increased cares. Pt anxious about d/c disposition as she verbalizes concern with being a burden to family. Pt does still require Ax1 at times due to pain with rib fx. Pt had short episode of nausea when working with OT, denied zofran for this and wanted to rest. Per DARIN pt moving very well with SBA, walker, and GB when moving from bed to chair. Pt has been incontinent today. Report given to SHWETA See.
[2022-06-17] MEDS: DONEPEZIL 5 MG TABLET PO (20:21)
[2022-06-17 23:00] VITALS: BP 154/76; PULSE 73; PULSE 77; RESP 18; TEMP 36.4; O2SAT 92
[2022-06-18] VITALS (7 sets, daily range): BP systolic 111–157; BP diastolic 52–96; PULSE 65–94; RESP 14–18; TEMP 36.4–36.9; O2SAT 90–92
[2022-06-18] MEDS: LORazepam 0.5 MG TABLET PO (02:58)
[2022-06-18] MEDS: TRAMADOL HCL 50 MG TABLET 25 MG PO (02:58)
[2022-06-18] MEDS: MORPHINE 2 MG/ML inj IVP (04:08)
[2022-06-18] MEDS: ONDANSETRON 2 MG/ML inj 4 MG IVP (06:31)
--- NOTE | 2022-06-18 06:59 | PC.NURSE ---
Alert and oriented to self and place. Forgetful about situation and time. Needs reminders. Pain managed with tramadol and Morphine. crochet machine operator contacted overnight for patient increasing pain; pain meds adjusted. Stating that she would rathe than deal with the pain. Remained on continuous telemetry overnight. Sinus dysrhythmia noted.
[2022-06-18] MEDS: LEVOTHYROXINE 50 MCG TABLET PO (07:26)
[2022-06-18] MEDS: OMEPRAZOLE 20 MG CAPSULE DR PO (07:26)
[2022-06-18] MEDS: LIDOCAINE 5% PATCH 1 PATCH TRANSDERMA (07:57)
[2022-06-18] MEDS: TRAMADOL HCL 50 MG TABLET PO ×2 (09:11→15:25)
[2022-06-18] MEDS: ALBUTEROL SULFATE 2.5 MG/3 ML VIAL.NEB NEB ×3 (09:12→21:33)
[2022-06-18] MEDS: NYSTATIN CREAM 30 GM 1 APPLIC TOPICAL ×2 (09:12→21:34)
[2022-06-18] MEDS: METOPROLOL SUCCINATE (XL) 25 MG TAB PO (09:12)
[2022-06-18] MEDS: ACETAMINOPHEN 325 MG TABLET 650 MG PO ×4 (09:12→21:33)
[2022-06-18] MEDS: SERTRALINE 50 MG TABLET PO (09:12)
--- NOTE | 2022-06-18 14:58 | PC.SOCIAL ---
Made phone call to [facility] and spoke with Elly. Elly at [facility] stated that they are able to accommodate increasing services for pt during recovery period. [facility] met with Pt's family yesterday and they agreed to a rate increase to increase the services. Pt will receive AM and PM cares, bathing, and toileting services every 4 hours. Pt will be able to use call light if the bathroom is needed more frequently. [facility] will re-evaluate after a day and adjust accordingly to meet pt's needs. Elly states she needs to know if the family is requesting [facility] to do medication management ([facility] is not currently doing med management, family is handling medication management). [facility] requested that pt discharge tomorrow if possible as she would need to set services up for pt with staff. [facility] is requesting a medication list and other discharge paperwork. Met with pt's son and daughter (Chris & Alison). Chris and Alison met with [facility] yesterday and requested increased services. Provided them with an update on the services that are being increased. Family is requesting that [facility] assist with medication management at this time until pt recovers as they are aware pt will have pain medication that will need to be administered frequently and they want pt to be able to get that as needed. Provided an update to charge nurse. Charge nurse will fax some preliminary information today but most information will be sent upon discharge. Made a phone call to [facility] and left a voicemail with Elly providing an update on discharge and informed her the pt's family is requesting [facility] to do medication management.
--- NOTE | 2022-06-18 17:04 | PM.IMPN1 ---
Progress Note: A&P Assessment and plan (1) Fall against object: Status: Acute (2) Right-sided chest wall pain: Problem details: Due to rib fractures Status: Acute (3) Right rib fracture: Problem details: 7th and 8th, posterior lateral, mild displacement, status post fall Status: Acute (4) Pleural effusion on right: Problem details: Small, most likely a hemothorax status post fall Status: Acute (5) Osteoporosis: Status: Acute (6) Gait instability: Status: Acute (7) At risk for falls: Status: Acute (8) Frail elderly: Status: Acute Plan 1. We were all set to discharge the patient to the assisted living with increased services today. Unfortunately the assisted living center was not ready to receive her, indicating that need to staff up in order to meet her needs. Thus at this juncture will continue to support her and anticipate possibly discharging her tomorrow to the assisted living with the increased support that she needs which they state they will then be staffed 4. 2. Continue with supportive efforts. 3. Reviewed with patient, son, daughter, and they are all agreeable. Time Spent With Patient Total time spent: 30 minutes Subjective Time Seen by Provider: 10:00 Date Seen: 06/18/22 Interval history: Hospital day 3. 86-year-old woman who fell while sitting and struck her chest against a cedar chest, sustaining multiple fractures of her ribs. She tells me her pain is well controlled if she does not move. Pain is more bothersome when she moves. Able to transfer with difficulty and support. Ambulates more easily again with support and use of her 4 wheeled walker. Not able to safely care for herself at this juncture, such as lower extremity dressing and undressing. Exam Narrative: Exam Narrative: When I 1st see her early in the morning she is in a fair amount of pain. After we place lidocaine patch her pain is much improved. Also we begin to use scheduled analgesics during the day and her pain is improved. Awake, alert, oriented to self, place, time, situation. Lungs clear to auscultation. Heart tones regular. Abdomen benign. Extremities without edema. Requires a fair amount of support with transfers and ambulation. Const: Vital Signs, click to edit/add: Vital Signs - 24 hr 06/17/22 19:00 06/17/22 23:00 06/17/22 23:00 Temperature 97.6 F Pulse Rate 73 Pulse Rate [Left R adial] 71 77 Respiratory Rate 18 18 Blood Pressure [Ri ght Arm] 124/64 Pulse Oximetry 90 Oxygen Delivery Me thod Room Air Oxygen Flow Rate 0 06/17/22 23:00 06/18/22 03:00 06/18/22 08:41 Temperature 97.6 F 97.6 F Pulse Rate 77 Pulse Rate [Left R adial] 77 81 Respiratory Rate 18 18 Blood Pressure [Ri ght Arm] 154/76 H 152/96 H Pulse Oximetry 92 92 Oxygen Delivery Me thod Room Air Room Air Oxygen Flow Rate 0 0 06/18/22 08:41 06/18/22 08:41 06/18/22 11:30 Temperature 97.8 F 98.2 F Pulse Rate Pulse Rate [Left R adial] 77 81 86 Respiratory Rate 18 18 Blood Pressure [Ri ght Arm] 157/94 H 113/79 Pulse Oximetry 91 90 Oxygen Delivery Me thod Room Air Room Air Oxygen Flow Rate 06/18/22 15:28 06/18/22 15:36 Temperature 98 F Pulse Rate 91 Pulse Rate [Left R adial] 94 Respiratory Rate 16 Blood Pressure [Ri ght Arm] 117/72 Pulse Oximetry 91 Oxygen Delivery Me thod Room Air Oxygen Flow Rate Documenting provider has reviewed patient's vital signs: yes
--- NOTE | 2022-06-18 17:54 | PC.NURSE ---
Shift Summary: patients pain well controlled with lidocaine patch and PRN medication. Vitals stable and WNL. Patient needs two assist when changing positions/transferring. One assist, gait belt and walker when ambulating. Needs encouragement to change position/ambulate. Poor appetite with breakfast and lunch, better this evening now that pain is well controlled.
[2022-06-18] MEDS: ONDANSETRON ODT 4 MG TAB PO (19:54)
[2022-06-18] MEDS: DONEPEZIL 5 MG TABLET PO (22:04)
[2022-06-19 00:45] VITALS: BP 137/65; PULSE 77; RESP 16; TEMP 36.7; O2SAT 94
[2022-06-19 03:30] VITALS: BP 146/85; PULSE 86; RESP 16; TEMP 36.4; O2SAT 91
[2022-06-19] MEDS: TRAMADOL HCL 50 MG TABLET PO (06:21)
[2022-06-19] MEDS: LEVOTHYROXINE 50 MCG TABLET PO (06:22)
[2022-06-19] MEDS: OMEPRAZOLE 20 MG CAPSULE DR PO (06:22)
--- NOTE | 2022-06-19 06:53 | PC.NURSE ---
END OF SHIFT NOTE: PT IS PLEASANT AND COOPERATIVE. TELE READS SINUS ARRHYTHMIA WITH PVC?S. PT HAS REDNESS TO GROIN; CLEANSED AND NYSTATIN CREAM APPLIED. PT AMBULATES WITH WALKER, GB, ASSIST OF 2 TO COMMODE. OCCASIONAL INCONTINENT OF BLADDER. PT C/O DIZZINESS AND NAUSEA APPROXIMATELY 1914. THIS WAS RELIEVED WITH INACTIVITY AND THE ADMINISTRATION OF PRN ZOFRAN. PT DENIES CP AND SOB. C/O RIB PAIN WITH MOVEMENT; SOME RELIEF WITH PRN ULTRAM. EXTREME [place]; WEARS HEARING AIDES.
[2022-06-19 07:26] VITALS: PULSE 83
[2022-06-19 07:51] VITALS: BP 163/72; PULSE 81; RESP 18; TEMP 36.7; O2SAT 90
[2022-06-19] MEDS: LIDOCAINE 5% PATCH 1 PATCH TRANSDERMA (07:59)
[2022-06-19] MEDS: NYSTATIN CREAM 30 GM 1 APPLIC TOPICAL (09:12)
[2022-06-19] MEDS: SERTRALINE 50 MG TABLET PO (09:12)
[2022-06-19] MEDS: ACETAMINOPHEN 325 MG TABLET 650 MG PO (09:12)
[2022-06-19] MEDS: ALBUTEROL SULFATE 2.5 MG/3 ML VIAL.NEB NEB (09:12)
[2022-06-19] MEDS: METOPROLOL SUCCINATE (XL) 25 MG TAB PO (09:12)
[2022-06-19 09:38] VITALS: PULSE 81; RESP 18
--- NOTE | 2022-06-19 09:39 | PC.SOCIAL ---
Faxed discharge orders to [facility] to the attention of Elly at [phone].
--- NOTE | 2022-06-19 10:29 | PC.SOCIAL ---
Met with Pt and her family. Informed family that discharge orders were faxed to [facility] and discharge would occur shortly. Family inquired on whether therapy orders were sent to [facility]. Informed family that therapy orders were faxed to [facility] and nursing staff at [facility] would set up therapy.
--- NOTE | 2022-06-19 12:01 | PC.NURSE ---
Discharge-- Very pleasant and cooperative, though confused, pt discharged back to [facility] facility with family via wheelchair. VSS and pt is afebrile. SPO2 maintained >90% on RA. Right sided rib pain appears well managed with scheduled Tylenol, Lidocaine patch and Ultram PRN. LS CTA. BS + x4, pt did c/o some mild nausea this morning that was relieved with food and aromatherapy. She tolerated a regular diet without difficulty though appetite is fairly poor and she ate only bites. Telemetry showed a sinus arrhythmia with occ PVCs. Discharge education was provided including diagnosis info, symptoms to report, medications and follow up plan. SL was removed with tip intact. All questions were answered.
--- NOTE | 2022-06-25 08:27 | P.DS_ITS ---
DS: Providers Provider Time Seen by Provider: 10:00 Date Seen: 06/19/22 Date of admission: 06/16/22 11:09 Primary care physician: Gabriel Orozco MD Admitting Clinician: Jeremías Cesar MD Consults: 06/16/22 13:15 Consult to Occupational Therapy [CONS] Routine Comment: Reason(s) for OT Consult:: Evaluate and Treat Any Restrictions?:: No Restrictions Consult to Physical Therapy [CONS] Routine Comment: Reason(s) for PT Consult:: Evaluate and Treat Any Restrictions?:: No Restrictions 06/16/22 13:32 Consult to Director Of Valuation [CONS] Routine Comment: Reason for Consult:: Discharge Planning Needs 06/16/22 13:41 Consult to Respiratory Therapy [CONS] Routine Comment: Reason(s) for RT Consult:: Consult Comment: Right sided chest pain s/p fall and posterolateral R rib fractures and small hemothorax, with underlying COPD. Incentive spirometry, Aerobika device. Attending Physician on discharge: Jeremías Cesar MD Date of Discharge: 06/19/22 DS: Diagnosis Discharge Diagnosis (1) Fall against object: Status: Acute (2) Right-sided chest wall pain: Status: Acute Problem details: Due to rib fractures (3) Right rib fracture: Status: Acute Problem details: 7th and 8th, posterior lateral, mild displacement, status post fall (4) Pleural effusion on right: Status: Acute Problem details: Small, most likely a hemothorax status post fall (5) Osteoporosis: Status: Acute (6) Frail elderly: Status: Acute (7) At risk for falls: Status: Acute (8) Gait instability: Status: Acute DS: Summary Hospital Course Hospital Course: 86-year-old woman who fell while sitting and struck her chest against a cedar chest, sustaining multiple right-sided fractures of her ribs and a small hemothorax.? She had no obvious pulmonary contusion or pneumothorax. Admitted for pain management, monitoring, and physical and occupational therapy assessment and recommendations. The day after admission, she tells me her pain is well controlled if she does not move.? Pain is more bothersome when she moves.? Able to transfer with difficulty and support.? Ambulates more easily again with support and use of her 4 wheeled walker.? Not able to safely care for herself at this juncture, such as lower extremity dressing and undressing. Patient is discharged to assisted living with increased services and ongoing family support. Status at Discharge Functional status at discharge: uses cane/walker Overall status at discharge: patient is progressing back to baseline Time Spent with Patient Time attestation: Total time spent providing and/or coordinating discharge services: Time spent: Greater than 30 minutes Exam Narrative: Exam Narrative: When I 1st see her early in the morning she is in a fair amount of pain.? After we place a lidocaine patch topically, her pain is much improved.? Also we begin to use scheduled analgesics during the day and her pain is improved. Awake, alert, oriented to self, place, time, situation. Lungs clear to auscultation. Heart tones regular.? Abdomen benign.? Extremities without edema.? Requires a fair amount of support with transfers and ambulation. Const: Documenting provider has reviewed patient's vital signs: yes DS: Data Imaging Chest x-ray: Attestation: I have reviewed the pertinent imaging results. Radiologist's impression: Mildly displaced right-sided 7th and 8th rib fractures with associated small right-sided pleural effusion, likely hemothorax. No definite pneumothorax. Discharge Plan Discharge Disposition: Home, Self-Care Date of Admission: 06/16/22 11:09 Attending Provider on Discharge: Jeremías Cesar Primary Care Provider: Gabriel Orozco Condition: Stable Anticipated Discharge Date/Time: 06/17/22 15:30 Discharge Medications: New nystatin 100,000 unit/gram Cream 1 applic topical BID Qty: 30 1RF Rx Instructions: Wash and rinse groin region, then pat dry with towel, then apply thin layer of cream - repeat twice daily for min of 2 weeks ondansetron 4 mg Tablet,Disintegrating 4 mg PO Q6H PRNQty: 10 1RF tramadol 50 mg Tablet 25 mg PO Q4H PRNQty: 14 0RF lidocaine 4 % adhesive patch,medicated 1 patch topical DAILY PRN (Reason: pain) Qty: 10 0RF Continued I-Maribel 300 mcg-200 mg-27 mg-2 mg tablet 1 tab PO DAILY Rx Instructions: administer after a meal albuterol sulfate 90 mcg/actuation HFA aerosol inhaler 2 puff INHALATION Q6H PRN donepezil 5 mg tablet 5 mg PO HS levothyroxine 50 mcg tablet 50 mcg PO DAILY metoprolol succinate 25 mg tablet extended release 24 hr 25 mg PO DAILY omeprazole 20 mg capsule,delayed release(DR/EC) 20 mg PO DAILY risedronate 35 mg tablet 35 mg PO .weekly sertraline 50 mg tablet 50 mg PO DAILY Spiriva with HandiHaler 18 mcg capsule, w/inhalation device 1 cap INHALATION DAILY melatonin 3 mg capsule 3 mg PO HS lorazepam [Ativan] 0.5 mg tablet 0.5 mg PO HS PRN aspirin 81 mg capsule 81 mg PO DAILY cholecalciferol (vitamin D3) [Vitamin D3] 50 mcg (2,000 unit) capsule 2,000 unit PO DAILY Changed acetaminophen [Arthritis Pain Relief (acetam)] 650 mg tablet extended release 1,300 mg PO Q8H Qty: 90 0RF No Action doxycycline hyclate 100 mg capsule 100 mg PO BID Qty: 14 0RF Discharge Orders: Discharge Order (Routine); Ordered 06/19/22 Ordered By: Jeremías Cesar Patient Education: Rib Fracture (GEN), Fall Prevention (GEN) Activity Restrictions/Additional Instructions: 1. Increased services at the assisted living center; 2. Please call for help when needed; 3. Toileting every 4 hours and more frequent if needed; 4. Routinely use 4 wheeled walker for transfers and ambulation; 5. Home PT and OT to assess and treat; 6. Assistance with medication set up and possible with administration, such as daily application of the lidocaine transdermal patch in the morning and removal at night. Activity Level: Activity as Tolerated Activity Detail: Please ask for help when needed. Discharge Diet: Regular Follow Up Appointments: Gabriel Orozco MD [Primary Care Provider] - 06/28/22 11:45 am (Follow-up in 5- 10 days for right chest pain due to fracture of right posterolateral 7th and 8th ribs status post fall from sitting position, and consideration for referral for additional cognitive assessments.) Forms: [facility] [employer] Info Instructions
== END 2022-06-19 11:05 | disposition other institution (70) ==
LOC: ED 10:06 → MEDSURG 11:10
PROVIDERS: Admitting Provider Internal Medicine; Emergency Provider Family Medicine; PCP Surgery; Visit Provider Internal Medicine
DX: S22.41XA Multiple fractures of ribs, right side, initial encounter for closed fracture (principal); R07.89 Other chest pain; J90 Pleural effusion, not elsewhere classified; W19.XXXA Unspecified fall, initial encounter; W18.00XA Striking against unspecified object with subsequent fall, initial encounter; Z91.81 History of falling; M81.0 Age-related osteoporosis without current pathological fracture; R54 Age-related physical debility; R07.81 Pleurodynia; Z98.890 Other specified postprocedural states; R32 Unspecified urinary incontinence; G62.9 Polyneuropathy, unspecified; R26.89 Other abnormalities of gait and mobility; R26.81 Unsteadiness on feet
CPT/HCPCS: 36415; 71101; 80048; 80076; 81001; 83605; 84484; 85025; 86140; 87086; 87635; 93005; 94640; 94664; 96361; 96374; 96375; 97116; 97161; 97165; 97530; 97535; 99284; 99285; G0378; A9270; G0379; J1170; J2270; J2405; J7120

== ENCOUNTER 2022-06-22 08:43 | Outpatient (CLI) | payer MEDICARE, OTHER, SELFPAY | END 2022-06-22 08:44 | disposition home or self-care (01) | PROVIDERS: PCP Surgery; Visit Provider Family Medicine | DX: S49.91XA Unspecified injury of right shoulder and upper arm, initial encounter (principal); W18.30XA Fall on same level, unspecified, initial encounter; Y92.119 Unspecified place in children's home and orphanage as the place of occurrence of the external cause | CPT/HCPCS: A0425; A0429 ==

== ENCOUNTER 2022-06-22 09:06 | Emergency (ER) | payer MEDICARE, OTHER, SELFPAY ==
[2022-06-22 09:14] VITALS: BP 128/91; PULSE 77; RESP 20; TEMP 36.1; O2SAT 94; BMI 22.7
--- NOTE | 2022-06-22 09:20 | CRLHL7_ITS ---
For Patients: As a result of the Cures Act, medical imaging exams and procedure reports are released immediately into your electronic medical record. You may view this report before your referring provider. If you have questions, please contact your health care provider. Indication: Follow-up rib fracture Technique: Portable chest Comparison: X-ray 06/16/2022 Findings: Stable cardiac mediastinal silhouette. Thoracic aorta appears tortuous/ectatic. Minimally displaced right posterior 7th and 8th rib fractures without significant change. Basilar atelectasis no pneumothorax. No large effusion. Hazy opacity over the right peripheral chest probably related to overlying soft tissues. Dictated by Caitie Urbano MD @ 06/22/2022 10:18:01 AM (Electronically Signed)
--- NOTE | 2022-06-22 09:25 | ED.GENADULT ---
HPI - General Adult General Time Seen by Provider: 09:25 Date Seen: 06/22/22 Chief complaint: Fall/Minor Trauma Stated complaint: Fall Time Seen by Provider: 06/22/22 09:19 Source: patient Mode of arrival: EMS Limitations: physical limitation History of Present Illness HPI narrative: Patient is a 6 year white female who recently moved into the [facility] with assisted living. She fell over a week ago and fracture to 7th and 8th rib, had a small pleural effusion. And has been on tramadol. Family is concerned that the tramadol could be affecting her mental status, she has had some mental status changes in the past, and is on Aricept. The patient reports today sometime after 631 meds were past at the [facility], she slid forward in a recliner and slid onto the floor. She states that she perhaps feels slightly more rib pain on the right than she did but she does not have any new injuries, and she does not report any head neck back pain no pelvic pain no extremity symptoms. She is noted to have a healing bruise on the right lower chest wall on the that looks old. She has no complaints of dizziness, here she is alert and oriented to person place and time Related Data Home Medications Medication Instructions Recorded Confirmed albuterol sulfate 90 mcg/actuation 2 puff inhalation Q6H PRN 05/08/22 06/16/22 aerosol inhaler aspirin 81 mg capsule 81 mg PO DAILY 05/08/22 06/16/22 cholecalciferol (vitamin D3) 50 2,000 unit PO DAILY 05/08/22 06/16/22 mcg (2,000 unit) capsule (Vitamin D3) donepezil 5 mg tablet 5 mg PO HS 05/08/22 06/16/22 levothyroxine 50 mcg tablet 50 mcg PO DAILY 05/08/22 06/16/22 lorazepam 0.5 mg tablet (Ativan) 0.5 mg PO HS PRN 05/08/22 06/16/22 melatonin 3 mg capsule 3 mg PO HS 05/08/22 06/16/22 metoprolol succinate 25 mg 25 mg PO DAILY 05/08/22 06/16/22 tablet,extended release 24 hr omeprazole 20 mg capsule,delayed 20 mg PO DAILY 05/08/22 06/16/22 release risedronate 35 mg tablet 35 mg PO .weekly 05/08/22 06/16/22 sertraline 50 mg tablet 50 mg PO DAILY 05/08/22 06/16/22 tiotropium bromide 18 mcg capsule 1 cap inhalation DAILY 05/08/22 06/16/22 with inhalation device (Spiriva with HandiHaler) vit A 300 mcg-C 200 mg-E 27 1 tab PO DAILY 06/16/22 06/16/22 mg-lutein 2 mg and minerals tablet (I-Maribel) Previous Rx's Medication Instructions Recorded acetaminophen 650 mg 1,300 mg PO Q8H #90 tabs 06/17/22 tablet,extended release (Arthritis Pain Relief (acetaminophen) ER) nystatin 100,000 unit/gram topical 1 applic topical BID #30 grams 06/17/22 cream ondansetron 4 mg disintegrating 4 mg PO Q6H PRN #10 tabs 06/17/22 tablet tramadol 50 mg tablet 25 mg PO Q4H PRN #14 tabs 06/17/22 lidocaine 4 % topical patch 1 patch topical DAILY PRN pain #10 06/18/22 ea doxycycline hyclate 100 mg capsule 100 mg PO BID #14 caps 06/22/22 Allergies Allergy/AdvReac Type Severity Reaction Status Date / Time codeine Allergy Intermediate Hives Verified 06/16/22 09:19 lisinopril Allergy Intermediate Cough Verified 06/16/22 09:19 alendronate sodium AdvReac Intermediate Nausea Verified 06/16/22 09:19 Review of Systems Status of ROS: Reports: 6 or more systems reviewed and unremarkable except as noted in History and below 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 Osteoporosis Paroxysmal SVT (supraventricular tachycardia) Peripheral neuropathy Sensorineural hearing loss of both ears Spinal stenosis Vitamin D deficiency Surgical History History of hysterectomy Previous back surgery S/P knee replacement S/P laparotomy S/P repair of paraesophageal hernia Status post appendectomy Status post left knee replacement Status post tonsillectomy Family History Father COPD (chronic obstructive pulmonary disease) High blood pressure Mother Dementia Psychiatric illness Social History Smoking Status: Never smoker Do you use any of these nicotine containing products: None Second hand tobacco smoke exposure: No How often do you have a drink containing alcohol: monthly or less How often do you have six or more drinks on one occasion: Never AUDIT-C Alcohol total score: 1 Non-prescribed substance use: denies use Gender Identity: female Exam Narrative: Exam Narrative: Objective: The patient is alert orient x3 Vital signs unremarkable O2 sat is excellent at 94% HEENT unremarkable no trauma Neck supple nontender Chest back abdomen unremarkable, other than she has some right lower chest wall bruising that appears old no obvious crepitus noted, lungs are clear, pulses regular, chest back abdomen otherwise unremarkable pelvis stable flexion extension of the lower extremities are normal no palpable tenderness or lower extremities or upper extremities Skin is warm and dry Good peripheral perfusion Const: Vital Signs, click to edit/add: Vital Signs - 24 hr 06/22/22 09:14 Temperature 96.9 F L Pulse Rate [Left P ulse Oximeter] 77 Respiratory Rate 20 Blood Pressure [Le ft Upper Arm] 128/91 H Pulse Oximetry 94 Oxygen Delivery Me thod Room Air Course Vital Signs Vital signs: Initial Vital Signs Temperature 96.9 F L 06/22/22 09:14 Temperature Source Temporal Artery Scan 06/22/22 09:14 Pulse Rate 77 06/22/22 09:14 Pulse Rhythm 06/22/22 09:14 Respiratory Rate 20 06/22/22 09:14 Blood Pressure 128/91 H 06/22/22 09:14 Blood Pressure Mean 103 06/22/22 09:14 Pulse Oximetry 94 06/22/22 09:14 Oxygen Delivery Method 06/22/22 09:14 Vital Signs Temperature 96.9 F L 06/22/22 09:14 Pulse Rate 77 06/22/22 09:14 Respiratory Rate 20 06/22/22 09:14 Blood Pressure 128/91 H 06/22/22 09:14 Pulse Oximetry 94 06/22/22 09:14 Oxygen Delivery Method 06/22/22 09:14 Temperature 96.9 F L 06/22/22 09:14 Pulse Rate 77 06/22/22 09:14 Respiratory Rate 20 06/22/22 09:14 Blood Pressure 128/91 H 06/22/22 09:14 Pulse Oximetry 94 06/22/22 09:14 Oxygen Delivery Method 06/22/22 09:14 Medical Decision Making MDM Narrative Medical decision making narrative: The patient slid out of the recliner this morning has was not down for prolonged. Likely less than 2 hours. Will check laboratory studies, will get a repeat chest x-ray to make sure she did not damage any other rib area or have increased effusion. Certainly the tramadol can contribute to generalized weakness and her daughter is concerned that it may cause some confusion which is certainly possible. Will have her stop the tramadol, will use Tylenol instead. They can update the regular physician for not getting adequate pain control but I think at this time simple vacation of her medicines be helpful. I do not think she sustained any new significant injury from the fall but will check an x-ray of her chest as mention and laboratory studies. Addendum: The patient has a chest x-ray that by my read shows persistent right pleural effusion that is small, rib fractures nondisplaced, no new injury that I can detect. She does have what appears to be atelectasis as well, but because of her age I am going to cover her for infection with the doxycycline 100 mg b.i.d. x7 days. Stop tramadol, can use Tylenol as needed for pain. Update primary care in the next couple of days with symptoms certainly sooner changes or concerns to return to ED. The patient has reassuring lab studies, follow-up primary care in the next couple of days with report of progress, return to ED as needed. Lab Data Labs: Lab Results 06/22/22 06/22/22 Range/Units 10:04 10:04 WBC 5.39 (4.50-11.00) K/uL RBC 4.92 (4.00-5.20) m/uL Hgb 13.2 (12.0-16.0) gm/dL Hct 42.7 (33.0-51.0) % MCV 87 (80-100) fL MCH 27 (26-34) pg MCHC 31 L (32-36) gm/dL RDW Coeff of Aristeo 15.1 (11.5-15.5) % Plt Count 210 (140-440) K/uL Neut % (Auto) 61.0 (42.0-72.0) % Lymph % (Auto) 23.4 (20-44) % [place] % (Auto) 11.7 H (0.0-11.0) % Eos % (Auto) 3.3 (0.0-7.0) % Baso % (Auto) 0.4 (0.0-3.0) % Neut # (Auto) 3.29 (1.7-7.0) K/uL Lymph # (Auto) 1.26 (0.90-2.90) K/uL [place] # (Auto) 0.60 (0.00-0.90) K/UL Eos # (Auto) 0.18 (0.00-0.50) K/uL Baso # (Auto) 0.02 (0.00-0.30) K/uL Abs Immat Gran (auto) 0.01 (0.00-0.30) K/uL Sodium 136 (135-149) mmol/L Potassium 4.2 (3.6-5.1) mmol/L Chloride 102 (96-114) mmol/L Carbon Dioxide 24 (20-32) mmol/L BUN 21 (7-30) mg/dL Creatinine 0.8 (0.5-1.5) mg/dL Estimated Creat Clear 31.94 Estimated GFR 72 ml/min Glucose 127 H (60-115) mg/dL Calcium 9.5 (8.4-10.6) mg/dL Discharge Plan Discharge Clinical Impression: Frail elderly, History of rib fracture, Fall Patient Disposition: Home w/ Parent or Adult Condition: Stable Additional Instructions: . stop Tramadol, use Tylenol as needed, ice to the chest wall as needed, light activity, update primary care physician within the next 48 hours with symptoms and situation. Return to the ED sooner problems concerns difficulty. zpack Activity Level: Light activity Discharge Diet: Regular Prescriptions: New doxycycline hyclate 100 mg capsule 100 mg PO BID Qty: 14 0RF No Action I-Maribel 300 mcg-200 mg-27 mg-2 mg tablet 1 tab PO DAILY Rx Instructions: administer after a meal nystatin 100,000 unit/gram Cream 1 applic topical BID Qty: 30 1RF Rx Instructions: Wash and rinse groin region, then pat dry with towel, then apply thin layer of cream - repeat twice daily for min of 2 weeks ondansetron 4 mg Tablet,Disintegrating 4 mg PO Q6H PRNQty: 10 1RF tramadol 50 mg Tablet 25 mg PO Q4H PRNQty: 14 0RF acetaminophen [Arthritis Pain Relief (acetam)] 650 mg tablet extended release 1,300 mg PO Q8H Qty: 90 0RF lidocaine 4 % adhesive patch,medicated 1 patch topical DAILY PRN (Reason: pain) Qty: 10 0RF albuterol sulfate 90 mcg/actuation HFA aerosol inhaler 2 puff INHALATION Q6H PRN donepezil 5 mg tablet 5 mg PO HS levothyroxine 50 mcg tablet 50 mcg PO DAILY metoprolol succinate 25 mg tablet extended release 24 hr 25 mg PO DAILY omeprazole 20 mg capsule,delayed release(DR/EC) 20 mg PO DAILY risedronate 35 mg tablet 35 mg PO .weekly sertraline 50 mg tablet 50 mg PO DAILY Spiriva with HandiHaler 18 mcg capsule, w/inhalation device 1 cap INHALATION DAILY melatonin 3 mg capsule 3 mg PO HS lorazepam [Ativan] 0.5 mg tablet 0.5 mg PO HS PRN aspirin 81 mg capsule 81 mg PO DAILY cholecalciferol (vitamin D3) [Vitamin D3] 50 mcg (2,000 unit) capsule 2,000 unit PO DAILY Follow Up/Referrals: Gabriel Orozco MD [Primary Care Provider] - Stand Alone Forms: [facility] Info Instructions
--- NOTE | 2022-06-22 09:42 | ED.NURSE ---
Pt ambulated to BR with assist of walker. Daughter at bedside.
[2022-06-22 10:09] LABS: Basophils Absolute Auto 0.02 K/uL (0.00-0.30); Basophils Percent Auto 0.4 % (0.0-3.0); Eosinophils Absolute Auto 0.18 K/uL (0.00-0.50); Eosinophils Percent Auto 3.3 % (0.0-7.0); Hematocrit 42.7 % (33.0-51.0); Hemoglobin* 13.2 gm/dL (12.0-16.0); Immature Granulocytes Abs Auto 0.01 K/uL (0.00-0.30); Lymphocytes Absolute Auto 1.26 K/uL (0.90-2.90); Lymphocytes Percent Auto 23.4 % (20-44); Mean Corpuscular HGB Conc 31 gm/dL (32-36); Mean Corpuscular Hemoglobin 27 pg (26-34); Mean Corpuscular Volume 87 fL (80-100); Monocytes Percent Auto 11.7 % (0.0-11.0); Neutrophils Absolute Auto 3.29 K/uL (1.7-7.0); Platelet Count* 210 K/uL (140-440); RDW Coefficient of Variation % 15.1 % (11.5-15.5); Red Blood Count 4.92 m/uL (4.00-5.20); White Blood Count* 5.39 K/uL (4.50-11.00)
[2022-06-22 10:10] LABS: Slide Review Reflex No
[2022-06-22 10:23] LABS: Chloride* 102 mmol/L (96-114); Potassium* 4.2 mmol/L (3.6-5.1); Sodium* 136 mmol/L (135-149)
[2022-06-22 10:25] LABS: Creatinine* 0.8 mg/dL (0.5-1.5); Est. Creatinine Clearance* 31.94; Estimated Glomerular Filt Rate 72 ml/min
[2022-06-22 10:26] LABS: Blood Urea Nitrogen* 21 mg/dL (7-30); Calcium* 9.5 mg/dL (8.4-10.6); Carbon Dioxide* 24 mmol/L (20-32); Glucose* 127 mg/dL (60-115)
== END 2022-06-22 11:11 | disposition home or self-care (01) ==
LOC: ED 09:35
PROVIDERS: Emergency Provider Family Medicine; PCP Surgery
DX: S22.49XG Multiple fractures of ribs, unspecified side, subsequent encounter for fracture with delayed healing (principal); R54 Age-related physical debility
CPT/HCPCS: 36415; 71045; 80048; 85025; 99283; 99284

== ENCOUNTER 2022-06-23 08:05 | Outpatient (CLI) | payer MEDICARE, OTHER, SELFPAY | END 2022-06-23 08:06 | disposition home or self-care (01) | PROVIDERS: PCP Family Medicine; Visit Provider Family Medicine | DX: G89.29 Other chronic pain (principal) | CPT/HCPCS: A0425; A0427 ==

== ENCOUNTER 2022-06-23 08:24 | Emergency (ER) | payer MEDICARE, OTHER, SELFPAY ==
[2022-06-23 08:27] VITALS: BP 133/82; PULSE 89; RESP 20; TEMP 36.3; O2SAT 96
[2022-06-23 09:30] VITALS: BP 117/78; PULSE 69; O2SAT 95
[2022-06-23 10:00] VITALS: BP 123/73; PULSE 80; RESP 16; RESP 18; O2SAT 98
--- NOTE | 2022-06-23 10:39 | ED_ITS ---
HPI - General Adult General Chief complaint: Fall/Minor Trauma Stated complaint: Fall Time Seen by Provider: 06/23/22 08:24 Source: patient, family and EMS History of Present Illness HPI narrative: 56-year-old female coming in today after sustaining a fall. She is a resident at [facility]. This is her 3rd fall in about a week's time. She was admitted for several days at the end of last week for rib fractures. She came in yesterday after sliding out of her chair no new injuries were noted then. She states that the same thing happened this morning she simply slid out of her chair. She states that the chair is new and she is not quite used to it. She slid forward falling on her buttocks. She states that she did not hit her head or lose consciousness. She states that her ribs feel the same as they did yesterday. She is not complaining of any chest or abdominal pain. She is not complaining of any leg or hip pain. She denies headache, blurry vision. She is very upset that she has to be back in the ER today. She is alert oriented x3. Does not seem confused. She is very hard of hearing. Her daughter is here with her today who is very concerned about her current living situation and does believe that she likely needs to go to a assisted facility. Unfortunately today is a Friday before and holiday. She was discharged home from the hospital with tramadol which she has not been taking for a couple days now. He she denies feeling confused, having increased weakness, or short of breath. Related Data Home Medications Medication Instructions Recorded Confirmed albuterol sulfate 90 mcg/actuation 2 puff inhalation Q6H PRN 05/08/22 06/16/22 aerosol inhaler aspirin 81 mg capsule 81 mg PO DAILY 05/08/22 06/16/22 cholecalciferol (vitamin D3) 50 2,000 unit PO DAILY 05/08/22 06/16/22 mcg (2,000 unit) capsule (Vitamin D3) donepezil 5 mg tablet 5 mg PO HS 05/08/22 06/16/22 levothyroxine 50 mcg tablet 50 mcg PO DAILY 05/08/22 06/16/22 lorazepam 0.5 mg tablet (Ativan) 0.5 mg PO HS PRN 05/08/22 06/16/22 melatonin 3 mg capsule 3 mg PO HS 05/08/22 06/16/22 metoprolol succinate 25 mg 25 mg PO DAILY 05/08/22 06/16/22 tablet,extended release 24 hr omeprazole 20 mg capsule,delayed 20 mg PO DAILY 05/08/22 06/16/22 release risedronate 35 mg tablet 35 mg PO .weekly 05/08/22 06/16/22 sertraline 50 mg tablet 50 mg PO DAILY 05/08/22 06/16/22 tiotropium bromide 18 mcg capsule 1 cap inhalation DAILY 05/08/22 06/16/22 with inhalation device (Spiriva with HandiHaler) vit A 300 mcg-C 200 mg-E 27 1 tab PO DAILY 06/16/22 06/16/22 mg-lutein 2 mg and minerals tablet (I-Maribel) Previous Rx's Medication Instructions Recorded acetaminophen 650 mg 1,300 mg PO Q8H #90 tabs 06/17/22 tablet,extended release (Arthritis Pain Relief (acetaminophen) ER) nystatin 100,000 unit/gram topical 1 applic topical BID #30 grams 06/17/22 cream ondansetron 4 mg disintegrating 4 mg PO Q6H PRN #10 tabs 06/17/22 tablet tramadol 50 mg tablet 25 mg PO Q4H PRN #14 tabs 06/17/22 lidocaine 4 % topical patch 1 patch topical DAILY PRN pain #10 06/18/22 ea doxycycline hyclate 100 mg capsule 100 mg PO BID #14 caps 06/22/22 Allergies Allergy/AdvReac Type Severity Reaction Status Date / Time codeine Allergy Intermediate Hives Verified 06/16/22 09:19 lisinopril Allergy Intermediate Cough Verified 06/16/22 09:19 alendronate sodium AdvReac Intermediate Nausea Verified 06/16/22 09:19 Review of Systems Status of ROS: Reports: 10 or more systems reviewed and unremarkable except as noted in History and below [facility] Medical History Adenoma of left adrenal gland Adrenal mass COPD (chronic obstructive pulmonary disease) Essential hypertension GERD (gastroesophageal reflux disease) Hiatal hernia Hypothyroidism Insomnia 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 Osteoporosis Paroxysmal SVT (supraventricular tachycardia) Peripheral neuropathy Sensorineural hearing loss of both ears Spinal stenosis Vitamin D deficiency Surgical History History of hysterectomy Previous back surgery S/P knee replacement S/P laparotomy S/P repair of paraesophageal hernia Status post appendectomy Status post left knee replacement Status post tonsillectomy Family History Father COPD (chronic obstructive pulmonary disease) High blood pressure Mother Dementia Psychiatric illness Social History Smoking Status: Never smoker Do you use any of these nicotine containing products: None Second hand tobacco smoke exposure: No How often do you have a drink containing alcohol: monthly or less How often do you have six or more drinks on one occasion: Never AUDIT-C Alcohol total score: 1 Non-prescribed substance use: denies use Gender Identity: female service: No Exam Narrative: Exam Narrative: Frail, elderly patient in no acute distress. Alert and oriented. Answers questions appropriately. Mood and affect are appropriate. Thoughts are goal o riented and rational. No tangential or magical thinking noted. Patient speaks in full sentences without needing to catch her breath. She is very hard of hearing. HEENT: Normocephalic atraumatic. Pupils are equally round reactive to light. Extraocular muscles are intact. No trauma noted to the inside of the mouth. Conjunctivae are moist without any icterus noted. Moist mucous membranes. Neck is soft without any lymphadenopathy or thyromegaly. No masses are appreciated. Cardiovascular: Heart is regular rate and rhythm S1 and S2 are present without any murmurs. Lungs: Clear to auscultation bilaterally no wheezes rhonchi or rales are appreciated. Patient takes deep breaths without any discomfort. Some tenderness to palpation over the right chest wall or her rib fractures are but not significant. Abdomen: Soft and nontender nondistended with normal bowel sounds. Extremities: Bilateral lower extremities show trace edema. She has no tenderness to palpation of the hips, femurs, knees, lower legs or ankles. Skin: Well perfused without any obvious rashes. Back: No new bruising, no tenderness to palpation of the cervical, thoracic or lumbar spine. Const: Vital Signs, click to edit/add: Vital Signs - 24 hr 06/23/22 08:27 Temperature 97.3 F L Pulse Rate [Left P ulse Oximeter] 89 Respiratory Rate 20 Blood Pressure [Le ft Upper Arm] 133/82 Pulse Oximetry 96 Oxygen Delivery Me thod Room Air Course Course Hospital Course: Had a long conversation with patient and daughter, daughter believes that patient does need to go to assisted facility in patient understands that. Patient is upset because she wants more independence however the more independent she is given the more frequently she falls. She states that she does not want to be in the hospital today and she is upset that she had come back. She does not endorse any new pain that she is concerned about and does not want to have any imaging done-I think this is a reasonable decision. Vital Signs Vital signs: Initial Vital Signs Temperature 97.3 F L 06/23/22 08:27 Temperature Source Temporal Artery Scan 06/23/22 08:27 Pulse Rate 89 06/23/22 08:27 Pulse Rhythm 06/23/22 08:27 Respiratory Rate 20 06/23/22 08:27 Blood Pressure 133/82 06/23/22 08:27 Blood Pressure Mean 99 06/23/22 08:27 Blood Pressure Position Supine 06/23/22 08:27 Pulse Oximetry 96 06/23/22 08:27 Oxygen Delivery Method 06/23/22 08:27 Vital Signs Temperature 97.3 F L 06/23/22 08:27 Pulse Rate 89 06/23/22 08:27 Respiratory Rate 20 06/23/22 08:27 Blood Pressure 133/82 06/23/22 08:27 Pulse Oximetry 96 06/23/22 08:27 Oxygen Delivery Method 06/23/22 08:27 Temperature 97.3 F L 06/23/22 08:27 Pulse Rate 89 06/23/22 08:27 Respiratory Rate 20 06/23/22 08:27 Blood Pressure 133/82 06/23/22 08:27 Pulse Oximetry 96 06/23/22 08:27 Oxygen Delivery Method 06/23/22 08:27 Medical Decision Making MDM Narrative Medical decision making narrative: 86-year-old female frequent falls, patient will be discharged back to the assisted living with her daughter. Her daughter will start the procedure into getting her into a assisted as she is not thriving in the assisted living. They will return to the ED with other concerns if they rise up. Daughter felt comfortable with this plan. Patient was in agreement in the had no other questions or concerns. Medical Records Medical records reviewed: Yes I reviewed the patient's medical records Discharge Plan Discharge Clinical Impression: Frail elderly, Fall Patient Disposition: Home w/ Parent or Adult Condition: Stable Additional Instructions: Recommend changing current living situation to a assisted facility as patient is not thriving in assisted living. Prescriptions: No Action I-Maribel 300 mcg-200 mg-27 mg-2 mg tablet 1 tab PO DAILY Rx Instructions: administer after a meal nystatin 100,000 unit/gram Cream 1 applic topical BID Qty: 30 1RF Rx Instructions: Wash and rinse groin region, then pat dry with towel, then apply thin layer of cream - repeat twice daily for min of 2 weeks ondansetron 4 mg Tablet,Disintegrating 4 mg PO Q6H PRNQty: 10 1RF tramadol 50 mg Tablet 25 mg PO Q4H PRNQty: 14 0RF acetaminophen [Arthritis Pain Relief (acetam)] 650 mg tablet extended release 1,300 mg PO Q8H Qty: 90 0RF lidocaine 4 % adhesive patch,medicated 1 patch topical DAILY PRN (Reason: pain) Qty: 10 0RF doxycycline hyclate 100 mg capsule 100 mg PO BID Qty: 14 0RF albuterol sulfate 90 mcg/actuation HFA aerosol inhaler 2 puff INHALATION Q6H PRN donepezil 5 mg tablet 5 mg PO HS levothyroxine 50 mcg tablet 50 mcg PO DAILY metoprolol succinate 25 mg tablet extended release 24 hr 25 mg PO DAILY omeprazole 20 mg capsule,delayed release(DR/EC) 20 mg PO DAILY risedronate 35 mg tablet 35 mg PO .weekly sertraline 50 mg tablet 50 mg PO DAILY Spiriva with HandiHaler 18 mcg capsule, w/inhalation device 1 cap INHALATION DAILY melatonin 3 mg capsule 3 mg PO HS lorazepam [Ativan] 0.5 mg tablet 0.5 mg PO HS PRN aspirin 81 mg capsule 81 mg PO DAILY cholecalciferol (vitamin D3) [Vitamin D3] 50 mcg (2,000 unit) capsule 2,000 unit PO DAILY Follow Up/Referrals: Gabriel Orozco MD [Primary Care Provider] - Stand Alone Forms: [facility] Info Instructions
== END 2022-06-23 10:52 | disposition home or self-care (01) ==
LOC: ED 10:17
PROVIDERS: Emergency Provider Family Medicine; PCP Surgery
DX: T14.90XA Injury, unspecified, initial encounter (principal); Z91.81 History of falling; W07.XXXA Fall from chair, initial encounter; Y92.099 Unspecified place in other non-institutional residence as the place of occurrence of the external cause
CPT/HCPCS: 99282; 99283

== ENCOUNTER 2022-07-02 07:32 | Outpatient (CLI) | payer MEDICARE, OTHER, SELFPAY | END 2022-07-02 07:33 | disposition home or self-care (01) | LOC: AMB 07-19 11:34 | PROVIDERS: PCP Family Medicine; Visit Provider Family Medicine | DX: R53.1 Weakness (principal); R41.0 Disorientation, unspecified | CPT/HCPCS: A0425; A0427 ==

== ENCOUNTER 2022-07-02 07:55 | Inpatient (IN) | payer MEDICARE, OTHER, SELFPAY ==
[2022-07-02] VITALS (12 sets, daily range): BP systolic 38–163; BP diastolic 28–98; PULSE 92–127; RESP 14–24; TEMP 36.9–37.2; O2SAT 94–96; BMI 22.5
--- NOTE | 2022-07-02 | CRLHL7_ITS ---
For Patients: As a result of the Century Cures Act, medical imaging exams and procedure reports are released immediately into your electronic medical record. You may view this report before your referring provider. If you have questions, please contact your health care provider. INDICATION: Altered mental status TECHNIQUE: CT head without contrast. COMPARISON: Head CT 01/14/2020 FINDINGS: CSF spaces: Within normal limits for age. Brain parenchyma: No intracranial bleed or mass effect. Mild cerebral atrophy with extensive low density in the deep white matter. Skull base and calvarium: Mild mucosal thickening paranasal sinuses. Atherosclerosis. The visualized orbits are grossly unremarkable. No skull fractures. IMPRESSION: 1. No intracranial bleed or mass effect. 2. Cerebral atrophy with nonspecific white matter disease, likely microangiopathy. Results called to Dr. Whiteside at 0820 on 07/02/2022 Please note that all CT scans at this facility use dose modulation, iterative reconstruction, and/or weight-based dosing when appropriate to reduce radiation dose to as low as reasonably achievable. Dictated by Beto Brothers MD @ 07/02/2022 8:20:12 AM (Electronically Signed)
--- NOTE | 2022-07-02 08:20 | CRLHL7_ITS ---
For Patients: As a result of the Century Cures Act, medical imaging exams and procedure reports are released immediately into your electronic medical record. You may view this report before your referring provider. If you have questions, please contact your health care provider. Indication: Weakness, cough and fall. Technique: Chest 1 view Comparison: Chest x-ray 06/22/2022 Findings/Impression: Cardiovascular and mediastinum: Mild cardiomegaly with aortic tortuosity and atherosclerotic calcification. Some rightward deviation of the trachea, probably rotation as well as some aortic tortuosity. Left thyroid enlargement not excluded. Lungs and pleural space: Lungs are clear. No sign of infiltrate or mass. No sign of pleural effusion. No pneumothorax. Bones and soft tissues: Previously noted right rib fractures less well-defined on this view although not grossly changed. Dictated by Beto Brothers MD @ 07/02/2022 9:57:31 AM (Electronically Signed)
--- NOTE | 2022-07-02 08:22 | ED.NURSE ---
per dr dayna mosley code was cancelled. is at baseline. has generalized weakness.
[2022-07-02 09:00] LABS: Basophils Percent Auto 0.1 % (0.0-3.0); Hematocrit 47.4 % (33.0-51.0); Hemoglobin* 15.2 gm/dL (12.0-16.0); Mean Corpuscular HGB Conc 32 gm/dL (32-36); Mean Corpuscular Hemoglobin 27 pg (26-34); Mean Corpuscular Volume 84 fL (80-100); Monocytes Percent Auto 5.1 % (0.0-11.0); Neutrophils Percent Auto 90.2 % (42.0-72.0); Platelet Count* 269 K/uL (140-440); RDW Coefficient of Variation % 16.8 % (11.5-15.5); Red Blood Count 5.62 m/uL (4.00-5.20); White Blood Count* 18.96 K/uL (4.50-11.00)
[2022-07-02 09:01] LABS: Slide Review Reflex No
[2022-07-02 09:13] LABS: PCR FLU A Negative PCR FLU A (Negative); PCR FLU B Negative PCR FLU B (Negative); PCR RSV Negative PCR RSV (Negative)
[2022-07-02 09:15] LABS: INR 1.04 (0.91-1.10)
[2022-07-02 09:16] LABS: Partial Thromboplastin Time* 25 Seconds (23-33)
[2022-07-02 09:20] LABS: SARS PCR* Negative SARS-CoV-2 (Negative)
[2022-07-02 09:32] LABS: Chloride* 101 mmol/L (96-114); Sodium* 135 mmol/L (135-149)
[2022-07-02 09:35] LABS: Blood Urea Nitrogen* 22 mg/dL (7-30); Carbon Dioxide* 23 mmol/L (20-32); Creatinine* 0.8 mg/dL (0.5-1.5); Estimated Glomerular Filt Rate 72 ml/min
[2022-07-02 09:36] LABS: Calcium* 9.1 mg/dL (8.4-10.6); Glucose* 148 mg/dL (60-115)
--- NOTE | 2022-07-02 10:11 | PC.NURSE ---
lab called for blood
[2022-07-02 11:39] LABS: Appearance Urine Clear (Clear); Bilirubin Urine Negative (Negative); Blood Urine 1+ (Negative); Color Urine Yellow (Yellow); Glucose Urine Negative (Negative); Ketones Urine 1+ (Negative); Leukocyte Esterase Urine Negative (Negative); Nitrite Urine Negative (Negative); Protein Urine 3+ (Negative); Specific Gravity Urine >= 1.030 (1.000-1.030); Urobilinogen Urine 0.2 (0.2-1.0); pH Urine 5.5 (5.0-8.5)
--- NOTE | 2022-07-02 11:41 | ED.NURSE ---
ua was obtained and sent. was unable to cath due to extreme difficulty finding urethra.
--- NOTE | 2022-07-02 11:43 | ED.GENADULT ---
HPI - General Adult General Date Seen: 07/02/22 Chief complaint: Altered Mental Status Stated complaint: Possible stroke/weakness Time Seen by Provider: 07/02/22 07:55 Source: patient and family Mode of arrival: EMS Limitations: altered mental status History of Present Illness HPI narrative: Patient is a 86-year-old female brought in by EMS for altered mental status and thought to be possibly stroke related. She has had this now for a few days, and has had numerous falls over the past 3 or 4 weeks. She is accompanied by her daughter who is her POA and knows her very well. He lives in the [facility] living next door, she has had numerous falls or she is slid out of her chair, onto the ground. No real history of falling and hitting her head although this is quite challenging to get any sort of meaningful history from her. No history of fevers chills there has been no nausea vomiting, but she has really become weaker in the last 3-4 days, and really refuses to eat anything. Was able to review previous trips to the emergency room, Related Data Home Medications Medication Instructions Recorded Confirmed albuterol sulfate 90 mcg/actuation 2 puff inhalation Q6H PRN 05/08/22 06/16/22 aerosol inhaler aspirin 81 mg capsule 81 mg PO DAILY 05/08/22 06/16/22 cholecalciferol (vitamin D3) 50 2,000 unit PO DAILY 05/08/22 06/16/22 mcg (2,000 unit) capsule (Vitamin D3) donepezil 5 mg tablet 5 mg PO HS 05/08/22 06/16/22 levothyroxine 50 mcg tablet 50 mcg PO DAILY 05/08/22 06/16/22 lorazepam 0.5 mg tablet (Ativan) 0.5 mg PO HS PRN 05/08/22 06/16/22 melatonin 3 mg capsule 3 mg PO HS 05/08/22 06/16/22 metoprolol succinate 25 mg 25 mg PO DAILY 05/08/22 06/16/22 tablet,extended release 24 hr omeprazole 20 mg capsule,delayed 20 mg PO DAILY 05/08/22 06/16/22 release risedronate 35 mg tablet 35 mg PO .weekly 05/08/22 06/16/22 sertraline 50 mg tablet 50 mg PO DAILY 05/08/22 06/16/22 tiotropium bromide 18 mcg capsule 1 cap inhalation DAILY 05/08/22 06/16/22 with inhalation device (Spiriva with HandiHaler) vit A 300 mcg-C 200 mg-E 27 1 tab PO DAILY 06/16/22 06/16/22 mg-lutein 2 mg and minerals tablet (I-Maribel) Previous Rx's Medication Instructions Recorded acetaminophen 650 mg 1,300 mg PO Q8H #90 tabs 06/17/22 tablet,extended release (Arthritis Pain Relief (acetaminophen) ER) nystatin 100,000 unit/gram topical 1 applic topical BID #30 grams 06/17/22 cream ondansetron 4 mg disintegrating 4 mg PO Q6H PRN #10 tabs 06/17/22 tablet tramadol 50 mg tablet 25 mg PO Q4H PRN #14 tabs 06/17/22 lidocaine 4 % topical patch 1 patch topical DAILY PRN pain #10 06/18/22 ea doxycycline hyclate 100 mg capsule 100 mg PO BID #14 caps 06/22/22 Allergies Allergy/AdvReac Type Severity Reaction Status Date / Time codeine Allergy Intermediate Hives Verified 06/16/22 09:19 lisinopril Allergy Intermediate Cough Verified 06/16/22 09:19 alendronate sodium AdvReac Intermediate Nausea Verified 06/16/22 09:19 Review of Systems Status of ROS: Reports: 10 or more systems reviewed and unremarkable except as noted in History and below PFSH PFSH Medical History Adenoma of left adrenal gland Adrenal mass COPD (chronic obstructive pulmonary disease) Essential hypertension GERD (gastroesophageal reflux disease) Hiatal hernia Hypothyroidism Insomnia 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 Osteoporosis Paroxysmal SVT (supraventricular tachycardia) Peripheral neuropathy Sensorineural hearing loss of both ears Spinal stenosis Vitamin D deficiency Surgical History History of hysterectomy Previous back surgery S/P knee replacement S/P laparotomy S/P repair of paraesophageal hernia Status post appendectomy Status post left knee replacement Status post tonsillectomy Family History Father COPD (chronic obstructive pulmonary disease) High blood pressure Mother Dementia Psychiatric illness Social History Smoking Status: Never smoker Do you use any of these nicotine containing products: None Second hand tobacco smoke exposure: No How often do you have a drink containing alcohol: monthly or less How often do you have six or more drinks on one occasion: Never AUDIT-C Alcohol total score: 1 Non-prescribed substance use: denies use Gender Identity: female service: No Exam Narrative: Exam Narrative: She is lying in the bed, she seemingly cooperates, with my examination, does not really give any meaningful history, is alert times to person, but not to place or time. 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 Pupils are equal round reactive to light she tracks normally, no evidence of trauma over head or neck region her TMs are normal oropharynx is normal, she peers to be a little bit dry, her chest is clear bilaterally, she has the pain patch on her right side of her posterior chest, where she had broken ribs on a previous fall. She has some crackles in her lungs bilaterally, but I do not detect any obvious wheezes, or signs of respiratory distress, heart sounds are normal with no clicks murmurs or gallops, her abdomen is soft, previous scarring from previous surgical endeavors are noted on her abdomen, but no tenderness to palpation normal bowel sounds and no organomegaly. She moves all extremities independently and well, little bit weaker in her lower extremities and her upper extremities. But otherwise normal, her C-spine thoracic spine and lumbar spine palpate normally, she has a small ulcer noted over her sacral area. Approximately 5 mm in size some mild redness, but no acute breakdown is noted. Const: Vital Signs, click to edit/add: Vital Signs - 24 hr 07/02/22 08:00 Temperature 98.5 F Pulse Rate [Right Pulse Oximeter] 92 Respiratory Rate 14 Blood Pressure [Le ft Upper Arm] 142/92 H Pulse Oximetry 94 Oxygen Delivery Me thod Room Air Documenting provider has reviewed patient's vital signs: yes Course Reevaluation(s) Reevaluation #1: I reviewed with the daughter, I do not really find any evidence currently of cause for this, other than overall weakness, we will do a cath urine however, as UTIs can be very common cause of this, she will need admission given her weakness and where she currently lives. And I have discussed this with Hospital Medicine. Vital Signs Vital signs: Initial Vital Signs Temperature 98.5 F 07/02/22 08:00 Temperature Source Temporal Artery Scan 07/02/22 08:00 Pulse Rate 92 07/02/22 08:00 Respiratory Rate 14 07/02/22 08:00 Blood Pressure 142/92 H 07/02/22 08:00 Blood Pressure Mean 108 07/02/22 08:00 Blood Pressure Position Sitting 07/02/22 08:00 Pulse Oximetry 94 07/02/22 08:00 Oxygen Delivery Method 07/02/22 08:00 Vital Signs Temperature 98.5 F 07/02/22 08:00 Pulse Rate 92 07/02/22 08:00 Respiratory Rate 14 07/02/22 08:00 Blood Pressure 142/92 H 07/02/22 08:00 Pulse Oximetry 94 07/02/22 08:00 Oxygen Delivery Method 07/02/22 08:00 Temperature 98.5 F 07/02/22 08:00 Pulse Rate 92 07/02/22 08:00 Respiratory Rate 14 07/02/22 08:00 Blood Pressure 142/92 H 07/02/22 08:00 Pulse Oximetry 94 07/02/22 08:00 Oxygen Delivery Method 07/02/22 08:00 Medical Decision Making MDM Narrative Medical decision making narrative: Life-threatening differential diagnosis considered include stroke, coronary artery disease, pneumonia, and heart failure. Other differential diagnosis include but are not limited to electrolyte imbalances, anemia, medication reactions, and urinary tract infection Medical Records Medical records reviewed: Yes I reviewed the patient's medical records Lab Data Lab results reviewed: Yes I reviewed the patient's lab results Labs: Lab Results 07/02/22 07/02/22 07/02/22 Range/Units 08:18 08:40 08:40 WBC 18.96 H (4.50-11.00) K/uL RBC 5.62 H (4.00-5.20) m/uL Hgb 15.2 (12.0-16.0) gm/dL Hct 47.4 (33.0-51.0) % MCV 84 (80-100) fL MCH 27 (26-34) pg MCHC 32 (32-36) gm/dL RDW Coeff of Aristeo 16.8 H (11.5-15.5) % Plt Count 269 (140-440) K/uL Neut % (Auto) 90.2 H (42.0-72.0) % Lymph % (Auto) 3.0 L (20-44) % [place] % (Auto) 5.1 (0.0-11.0) % Eos % (Auto) 0.0 (0.0-7.0) % Baso % (Auto) 0.1 (0.0-3.0) % Neut # (Auto) 17.10 H (1.7-7.0) K/uL Lymph # (Auto) 0.60 L (0.90-2.90) K/uL [place] # (Auto) 1.00 H (0.00-0.90) K/UL Eos # (Auto) 0.00 (0.00-0.50) K/uL Baso # (Auto) 0.00 (0.00-0.30) K/uL Abs Immat Gran (auto) 0.30 (0.00-0.30) K/uL INR (0.91-1.10) APTT (23-33) Seconds Sodium 135 (135-149) mmol/L Potassium 4.0 (3.6-5.1) mmol/L Chloride 101 (96-114) mmol/L Carbon Dioxide 23 (20-32) mmol/L BUN 22 (7-30) mg/dL Creatinine 0.8 (0.5-1.5) mg/dL Estimated GFR 72 ml/min Glucose 148 H (60-115) mg/dL Calcium 9.1 (8.4-10.6) mg/dL SARS-CoV-2 (PCR) Negative SARS-CoV-2 (Negative) Influenza Type A (PCR) Negative PCR FLU A (Negative) Influenza Type B (PCR) Negative PCR FLU B (Negative) RSV (PCR) Negative PCR RSV (Negative) POC Troponin I (0.01-0.04) ng/ml 07/02/22 07/02/22 Range/Units 08:40 08:40 WBC (4.50-11.00) K/uL RBC (4.00-5.20) m/uL Hgb (12.0-16.0) gm/dL Hct (33.0-51.0) % MCV (80-100) fL MCH (26-34) pg MCHC (32-36) gm/dL RDW Coeff of Aristeo (11.5-15.5) % Plt Count (140-440) K/uL Neut % (Auto) (42.0-72.0) % Lymph % (Auto) (20-44) % [place] % (Auto) (0.0-11.0) % Eos % (Auto) (0.0-7.0) % Baso % (Auto) (0.0-3.0) % Neut # (Auto) (1.7-7.0) K/uL Lymph # (Auto) (0.90-2.90) K/uL [place] # (Auto) (0.00-0.90) K/UL Eos # (Auto) (0.00-0.50) K/uL Baso # (Auto) (0.00-0.30) K/uL Abs Immat Gran (auto) (0.00-0.30) K/uL INR 1.04 (0.91-1.10) APTT 25 (23-33) Seconds Sodium (135-149) mmol/L Potassium (3.6-5.1) mmol/L Chloride (96-114) mmol/L Carbon Dioxide (20-32) mmol/L BUN (7-30) mg/dL Creatinine (0.5-1.5) mg/dL Estimated GFR ml/min Glucose (60-115) mg/dL Calcium (8.4-10.6) mg/dL SARS-CoV-2 (PCR) (Negative) Influenza Type A (PCR) (Negative) Influenza Type B (PCR) (Negative) RSV (PCR) (Negative) POC Troponin I 0.00 L (0.01-0.04) ng/ml Imaging Data CT scan - head: Attestation: I have reviewed the pertinent imaging results. My impression: My review of the CT head does not show any acute changes, radiology over read is agreement. Please see that note for entirety of report. Her chest x-ray does not show any pneumonia, possible old rib fractures are noted, there is no pneumothorax, and I did review the radiology report also. Discharge Plan Discharge Clinical Impression: Frail elderly, Weakness Patient Disposition: Admitted As Inpatient Condition: Unchanged
[2022-07-02 11:47] LABS: Amorphous Sediment Urine Many; Bacteria Urine Few; RBC Urine 0-2 (0-2); Squamous Epithelial Cell Urine Moderate (None-Few)
--- NOTE | 2022-07-02 12:54 | W.PC.EDHO ---
Primary Language: Preferred Language: Orientation Status: [] Alert & Oriented [x] Slight Confusion [] Known Dx Dementia Transfers By: [x] Assist of 1 [] Assist of 2 [] Lift Description of Symptoms ED Triage Present Problem pt here this am after a fall 06/13 and has been Description having multiple falls since, pt more weak today and unable to get up to bathroom and swallow her pills Female History Patient No Homer Coma Scale Karma coma scale total score 15 IV Insertion/Site Date of IV Line Insertion [ 07/02/22 Left Antecubital] Oxygen Administration Pulse Oximetry 94 Oxygen Delivery Method Room Air Cardiac Monitoring EKG Method 12 Lead
--- NOTE | 2022-07-02 13:10 | ED.NURSE ---
was transferred to m/s via cart. has been stable and resting. daughter kimi has been at bs. was on every 30 min vitals. vitals were inadvertently erased and not able to recompile. was stable and no significant vs changes.
--- NOTE | 2022-07-02 15:30 | PM.IMHP1 ---
Hospitalist- H&P: HPI History of Present Illness Time Seen by Provider: 15:00 Date Seen: 07/02/22 Chief complaint: weakness/falls Narrative: Amberly Darnell is a 86 year old woman who was brought in to our emergency department today with concerns of increasing weakness, multiple falls over the last few days, decreased oral intake. On the 16 of June patient was sitting on the chair, fell off the chair while reaching for some flower arrangements, struck her chest against a Seater chest, sustained fractures in the posterior lateral 7th and 8th ribs on the right with only mild displacement and small hemo thorax but no pneumothorax. Since that time has been difficult for her to be comfortable. She has decreased her activities significantly. She has become increasingly weak. Has had decreased oral intake of food as well as liquids. She was discharged to an assisted living facility, [facility], [place], [place], and has been receiving increase level of services. Despite this increase level of services she has been receiving she has not been able to demonstrate ability to be safe in her assisted living facility. Her daughter, Alison, was called by the [facility] staff this morning around 7:00 a.m. and informed that the patient was too weak to swallow her medicines in 2 week to walk or transfer. Patient was thus brought into our emergency department for further assessment. Evaluation in our emergency department demonstrated nothing specific that is potentially reversible. Discussion ensued and decision was made that efforts will be made to try to place patient in a nursing home facility if at all possible. Because she is failing in her current living situation there was not any way of providing additional level of support in her current living situation she admitted to the hospital for observation so that we can continue to assess and monitor and intervene as warranted and concurrently search for and find placement that is safe for her in a nursing home facility either locally or in [facility]. Review of Systems Status of ROS: Reports: unobtainable due to mental status Narrative: Patient is rather sleepy. I am able to awake her and talk with her briefly but she falls asleep readily. This is not new this is what I am told she has been doing since she arrived here in our hospital emergency department area and then transferred to the floor. She indicates she is uncomfortable with movement but comfortable if she lays still. This is not different than what she has told as previously when she was previously admitted to our hospital. Denies chest heaviness, pressure, tightness, or pain at rest. Denies dyspnea at rest, paroxysmal nocturnal dyspnea, orthopnea. Denies cough. Denies syncope, near syncope, orthostasis, vertigo, lightheadedness, dizziness. Acknowledges disinterest in eating or drinking. Acknowledges decreased oral intake over the last several days. Last time she ate was yesterday when she had small bowl of oatmeal and strawberries. Denies constipation or diarrhea. Denies dysuria, urgency, frequency, hematuria. Acknowledges requires increase support for transfers and ambulation compared to previously. Denies fevers, rigors, diaphoresis. Denies heat or cold intolerance. Denies night sweats. Acknowledges that she is losing weight with decreased oral intakes. Denies recent febrile illness. Denies recent COVID-19. No travel, trauma, or injury except for as noted on the 16 of June when she sustained a rib fractures. The falls that she has had since then have been technically falls put more descriptively she slipped out of a chair to the floor adjacent to the chair. Never struck head, never lost consciousness. Asked the daughter if she does if the patient has been taking her medicines. The daughter states she does not know. It sounds like the patient is still dispensing her own medications. Requests resuscitation for witnessed arrest while in the hospital otherwise prefers DNR DNI resuscitation if she is found down and not witnessed. 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 Osteoporosis Paroxysmal SVT (supraventricular tachycardia) Peripheral neuropathy Polypharmacy Sensorineural hearing loss of both ears Spinal stenosis Vitamin D deficiency Surgical History History of hysterectomy Previous back surgery S/P knee replacement S/P laparotomy S/P repair of paraesophageal hernia Status post appendectomy Status post left knee replacement Status post tonsillectomy Family History Father COPD (chronic obstructive pulmonary disease) High blood pressure Mother Dementia Psychiatric illness Social History Highest level of school completed/degree received: high school graduate Smoking Status: Never smoker Do you use any of these nicotine containing products: None Second hand tobacco smoke exposure: No How often do you have a drink containing alcohol: monthly or less How often do you have six or more drinks on one occasion: Never AUDIT-C Alcohol total score: 1 Non-prescribed substance use: denies use Caffeine: Yes (coffee) Gender Identity: female service: No Meds Home Medications and Allergies Home Medications Medication Instructions Recorded Confirmed Type aspirin 81 mg capsule 81 mg PO DAILY 05/08/22 07/02/22 History cholecalciferol (vitamin D3) 50 2,000 unit PO DAILY 05/08/22 07/02/22 History mcg (2,000 unit) capsule (Vitamin D3) donepezil 5 mg tablet 5 mg PO HS 05/08/22 07/02/22 History levothyroxine 50 mcg tablet 50 mcg PO DAILY 05/08/22 07/02/22 History lorazepam 0.5 mg tablet (Ativan) 0.5 mg PO HS PRN 05/08/22 07/02/22 History melatonin 3 mg capsule 3 mg PO HS PRN 05/08/22 07/02/22 History metoprolol succinate 25 mg 25 mg PO DAILY 05/08/22 07/02/22 History tablet,extended release 24 hr omeprazole 20 mg capsule,delayed 20 mg PO DAILY 05/08/22 07/02/22 History release risedronate 35 mg tablet 35 mg PO .WED@06 05/08/22 07/02/22 History tiotropium bromide 18 mcg capsule 1 cap inhalation DAILY 05/08/22 07/02/22 History with inhalation device (Spiriva with HandiHaler) vit A 300 mcg-C 200 mg-E 27 1 tab PO DAILY 06/16/22 07/02/22 History mg-lutein 2 mg and minerals tablet (I-Maribel) acetaminophen 650 mg 1,300 mg PO TID PRN 07/02/22 07/02/22 History tablet,extended release (Arthritis Pain Relief (acetaminophen) ER) lidocaine 4 % topical patch 1 patch topical DAILY pain 07/02/22 07/02/22 History sertraline 100 mg tablet 100 mg PO DAILY 07/02/22 07/02/22 History Allergies Allergy/AdvReac Type Severity Reaction Status Date / Time codeine Allergy Intermediate Hives Verified 06/16/22 09:19 lisinopril Allergy Intermediate Cough Verified 06/16/22 09:19 alendronate sodium AdvReac Intermediate Nausea Verified 06/16/22 09:19 Exam Narrative: Exam Narrative: Sleepy. Arousable. Very hard of hearing. No acute distress. Appears comfortable when still. Pleasant disposition. When awake she is alert, oriented to self, place, time, situation in part. Vision is grossly normal. No icterous or conjunctival injection. Neck supple. Nontender. Midline trachea. No JVD or hepatojugular reflux or carotid bruits. No obvious adenopathy. Lungs clear to auscultation, without wheezing, rhonchi, or rales. Heart tones with regular rhythm, tachycardic around 100 beats per minute, normal S1-S2 without gallop or rub. Soft systolic murmur. Abdomen with active bowel sounds, soft, nontender, nondistended. Extremities without edema. Moves all 4 extremities. Skin is dry and intact. No jaundice, rashes, petechiae, or cyanosis. No focal motor neurologic deficits. Generalized weakness. Needs assist with transferring positions. Const: Vital Signs, click to edit/add: Vital Signs - 24 hr 07/02/22 08:00 07/02/22 13:29 07/02/22 13:35 Temperature 98.5 F 98.9 F Pulse Rate [Right Pulse Oximeter] 92 99 Respiratory Rate 14 24 24 Blood Pressure [Le ft Arm] 150/73 H Blood Pressure [Le ft Upper Arm] 142/92 H Pulse Oximetry 94 96 96 Oxygen Delivery Me thod Room Air Room Air Room Air 07/02/22 13:38 Temperature Pulse Rate [Right Pulse Oximeter] Respiratory Rate Blood Pressure [Le ft Arm] Blood Pressure [Le ft Upper Arm] 154/95 H Pulse Oximetry 95 Oxygen Delivery Me thod Documenting provider has reviewed patient's vital signs: yes Hospitalist - H&P: Result Labs Labs: Short CBC 07/02/22 Range/Units 08:40 WBC 18.96 H (4.50-11.00) K/uL Hgb 15.2 (12.0-16.0) gm/dL Hct 47.4 (33.0-51.0) % Plt Count 269 (140-440) K/uL BMP 07/02/22 08:40 Sodium 135 Potassium 4.0 Chloride 101 Carbon Dioxide 23 BUN 22 Creatinine 0.8 Glucose 148 H Calcium 9.1 Urine 07/02/22 Range/Units 11:15 Urine Color Yellow (Yellow) Urine Appearance Clear (Clear) Urine pH 5.5 (5.0-8.5) Ur Specific [place] >= 1.030 (1.000-1.030) Urine Protein 3+ A (Negative) Urine Glucose (UA) Negative (Negative) Imaging Chest x-ray: Attestation: I have reviewed the pertinent imaging results. Radiologist's impression: No new or acute findings. No infiltrate, pneumothorax, effusions, or masses. CT scan - head: Attestation: I have reviewed the pertinent imaging results. Radiologist's impression: No acute findings. Chronic microvascular changes. Assessment and Plan Assessment and plan (1) Failure to thrive syndrome, adult: Problem comment: Decreased food and fluid consumption Status: Acute Assessment and Plan: 1. Suspect multifactorial, including from pain from rib fractures, polypharmacy including analgesics, however this process started even before her rib fractures on 06/16/2022 and thus I suspect baseline etiology as well. 2. No longer able to safely live in current assisted living setting. Needs higher level of care and services than what she is currently receiving. 3. [facility] physical therapy, occupational therapy, and 7th grade social studies teacher to assist with discharge disposition planning. 4. Will ask dietitian to assess and recommend regarding oral nutritional and hydration consumption options. (2) Dehydration: Status: Acute Assessment and Plan: 1. Much worse over the last week. 2. IV fluids, monitor hydration status, monitor orthostatic blood pressures and pulses. (3) Polypharmacy: Problem comment: Not able to safely dispense or take her own meds independently any longer Status: Acute Assessment and Plan: 1. Obviously needs support sorting through her multiple medications and safely administering these. 2. It is unclear what role her polypharmacy is playing in her current presentation but it is certainly worrisome that it is playing a significant role. (4) Weakness: Problem comment: Gradually progressive Status: Acute (5) Multiple falls: Status: Acute (6) Proteinuria: Status: Acute Assessment and Plan: 1. Will reassess urine analysis after we rehydrate her. (7) Leukocytosis: Problem comment: Etiology not yet determined. Suspect de-margination from dehydrated state. Status: Acute (8) Right rib fracture: Problem comment: 7th and 8th, posterior lateral, mild displacement, status post fall 06/16/2022 Status: Acute Assessment and Plan: 1. For now will continue with efforts to manage the pain that she has from this as she is currently doing. The concern is that we may need to decrease her opioid analgesics. (9) Altered mental status: Problem comment: Intermittent Status: Acute Assessment and Plan: 1. Based on my previous encounters with her and her current encounter and my discussions with her daughter and son, the concern is that she has a baseline cognitive decline in the 1st place and now it is escalating further. Whether not current medication regimen is precipitating even faster decline is uncertain. Need to monitor closely. Polypharmacy is also a concern. (10) Gait instability: Status: Acute Assessment and Plan: 1. This is multifactorial. This predates her rapidly declining condition. This is what precipitated her fall in the 1st place which culminated in her rib fractures on 16 June. (11) Osteoporosis: Status: Acute (12) Hearing loss: Problem comment: Chronic, uses hearing aids Status: Acute Plan 1. I discussed with patient. I discussed with patient's daughter via telephone. Both are in agreement with admission to observation and consideration for higher level of services such as in a nursing home facility. They are agreeable to proceeding with our efforts to make these assessment so that we can make a reasonable recommendation based on her assessments. 2. Continue supportive efforts. 3. Will honor her request to resuscitate in the event of a witnessed cardiac arrest but do all we can to keep her comfortable if she sustains a non witnessed cardiac arrest. Daughter, Alison, and son, Chris, are her fier[employer] of civil litigation attorney for health.
[2022-07-02] MEDS: 0.9 % SODIUM CHLORIDE 1000 ml 1,000 ML IV (15:36)
[2022-07-02 15:41] LABS: C Reactive Protein* 6.7 mg/dL (0.5-1.0)
[2022-07-02 16:22] LABS: Troponin I* 0.01 ng/mL (0.01-0.04)
[2022-07-02] MEDS: 0.9 % SODIUM CHLORIDE 1000 ml 1,000 ML 75 ML IV (17:24)
[2022-07-02 18:14] LABS: HCO3 VBG 21 mmol/L (21-28); Lactate* 0.7 mmol/L (0.5-1.9); PCO2 VBG 29 mmHG (40-50); PO2 VBG 71.6 mmHG (25-47)
[2022-07-02 18:49] LABS: Troponin I* < 0.01 ng/mL (0.01-0.04)
[2022-07-02] MEDS: IPRATROPIUM 200 MCG/ML AMPUL.NEB IH ×2 (18:53→20:45)
--- NOTE | 2022-07-02 19:17 | PC.NURSE ---
End of Shift: Patient is pleasant, cooperative, and confused, only oriented to self. Patient arrived to floor at about 1350 by bed. Patient hypertensive but vitally stable, lungs clear, BS WNL, IV running NS at 75 in left AC. Patient is assist of 2 with walker. Patient denies pain, but whines with movement. Patient incontinent, diaper changed once. Patient tolerates regular diet(soft food), but does need some assistance eating as she tires. Patient does not understand the concept of lifting arm, patient brings head/mouth to food and can only stretch so far. Patient also denied difficulty swallowing but appears to put effort into swallowing. Patient has stage 2 pressure ulcer on coccyx mepilex applied.
[2022-07-02] MEDS: DONEPEZIL 5 MG TABLET PO (20:45)
[2022-07-02] MEDS: NYSTATIN CREAM 30 GM 1 APPLIC TOPICAL (20:46)
[2022-07-03 03:00] VITALS: BP 159/94; PULSE 94; RESP 24; TEMP 36.6; O2SAT 95
[2022-07-03] MEDS: OMEPRAZOLE 20 MG CAPSULE DR PO (06:17)
[2022-07-03] MEDS: LEVOTHYROXINE 50 MCG TABLET PO (06:17)
--- NOTE | 2022-07-03 06:51 | PC.NURSE ---
shift note -: pt does not call appropriately, sets off bed alarm, reminded to use call light. A x 2 to BSC. Pt requested to use BSC, but wasn?t successful as she had an incontinent episode in her brief. Repo'd frequently to relieve pressure off sacral area. Sacral mepi applied to pressure sore, CDI. Pitting edema to bilat LE, elevated. IV infiltrated, pt refused another IV placement, encouraged pt to increase fluid intake.
[2022-07-03 07:00] VITALS: BP 175/88; PULSE 103; PULSE 90; RESP 24; TEMP 36.6; O2SAT 96
[2022-07-03 07:37] LABS: Hematocrit 39.3 % (33.0-51.0); Hemoglobin* 12.6 gm/dL (12.0-16.0); Mean Corpuscular HGB Conc 32 gm/dL (32-36); Mean Corpuscular Hemoglobin 27 pg (26-34); Mean Corpuscular Volume 85 fL (80-100); Platelet Count* 206 K/uL (140-440); White Blood Count* 13.75 K/uL (4.50-11.00)
[2022-07-03 07:56] LABS: Slide Review Reflex No
[2022-07-03 08:04] LABS: Troponin I* 0.02 ng/mL (0.01-0.04)
[2022-07-03] MEDS: ASPIRIN 81 MG TABLET EC PO (09:02)
[2022-07-03] MEDS: LIDOCAINE 5% PATCH 1 PATCH TRANSDERMA (09:03)
[2022-07-03] MEDS: SERTRALINE 50 MG TABLET PO (09:03)
[2022-07-03] MEDS: METOPROLOL SUCCINATE (XL) 25 MG TAB PO (09:03)
[2022-07-03] MEDS: NYSTATIN CREAM 30 GM 1 APPLIC TOPICAL ×2 (09:04→21:32)
[2022-07-03] MEDS: IPRATROPIUM 200 MCG/ML AMPUL.NEB 500 MCG IH ×4 (09:04→21:32)
[2022-07-03] MEDS: 0.9 % SODIUM CHLORIDE 1000 ml 1,000 ML 75 ML IV (10:29)
[2022-07-03] MEDS: cefTRIAXone 1 GM in 0.9 % SODIUM CHLORIDE Mini-bag 100 ML IVPB (10:31)
[2022-07-03 10:58] VITALS: BP 151/97; PULSE 91; RESP 20; TEMP 36.6; O2SAT 94
--- NOTE | 2022-07-03 11:58 | P.IMPN_ITS ---
Progress Note: A&P Assessment and plan (1) Failure to thrive syndrome, adult: Problem details: Her activities of daily living are becoming more more difficult. She is no longer appropriate for assisted living would need senior care. However the superimposed UTI his magnified these needs. Status: Acute (2) UTI (urinary tract infection): Problem details: Rocephin 1 g Q 24 while hospitalized Status: Acute (3) Dehydration: Problem details: IV access was a challenge. She did not receive IV fluids overnight. I am starting with a bolus this morning and will likely continue IV fluids throughout the day. Status: Acute (4) Polypharmacy: Problem details: Not able to safely dispense or take her own meds independently any longer Status: Acute (5) Weakness: Problem details: Gradually progressive, magnified in the last 2-3 days secondary to his UTI and dehydration Status: Acute (6) Multiple falls: Status: Acute (7) Leukocytosis: Problem details: Likely from her UTI Status: Acute (8) Gait instability: Status: Acute Subjective Date Seen: 07/03/22 Interval history: Daily Progress Note - Hospital Medicine Day #: 2 CC: Adult failure to thrive, weakness, repeated falls, UTI OVERNIGHT UPDATES FROM STAFF & MED, LAB, IMAGING UPDATES Amaya is weak, requiring 2 assist but coherent and eating some help with eating but can express her desires and needs. Shift note : pt does not call appropriately, sets off bed alarm, reminded to use call light. A x 2 to BSC. Pt requested to use BSC, but wasn?t successful as she had an incontinent episode in her brief. Repo'd frequently to relieve pressure off sacral area. Sacral mepi applied to pressure sore, CDI. Pitting edema to bilat LE, elevated. IV infiltrated, pt refused another IV placement, encouraged pt to increase fluid intake Blood pressure is 151/97. The rest of her vital signs are reviewed and unremarkable. CBC shows her leukocytosis is down trending. It was 18.9 on admission, 13.7 this morning. Lactate is normal. Metabolic panel unremarkable. Troponin undetectable. CRP 6.7 TSH normal Urine from yesterday shows 3+ protein, 1+ ketones, 1+ blood, negative nitrate and negative leukocyte esterase. However there are a few bacteria noted. Gram- negative rods growing overnight. Blood cultures drawn yesterday are pending at 12:00 p.m. and are still negative. Chest x-ray shows mild cardiomegaly. Grossly unchanged noted previous rib fractures. Review of Systems: See subjective Cardiac: No new chest pain/pressure/palpitations. Respiratory: no new dyspnea. GI: No abdominal bloating Objective: Vitals: see above Lungs: Clear. Cardiac: S1S2. Disposition/Potential discharge - Likely to return to previous living situation. Total time is 35 minutes with greater than 50% spent in counseling and cook taco rdination of care. I spoke with the patient and she very clearly said ?let me go ?if my time is up. She denies wanting CPR, chest compressions, intubation or other forms of life support. She is fine with us treating her current infection and doing therapy to help her become stronger. She is not asking for hospice or comfort care. She is asking to be DNR DNI with active treatment is currently. Daughter was present during this conversation. Exam Const: Vital Signs, click to edit/add: Vital Signs - 24 hr 07/02/22 13:29 07/02/22 13:35 07/02/22 13:38 Temperature 98.9 F Pulse Rate Pulse Rate [Right Pulse Oximeter] 99 Pulse Rate [orthos tatic lying Right] Pulse Rate [orthos tatic sitting Righ t] Pulse Rate [orthos tatic standing Rig ht] Respiratory Rate 24 24 Blood Pressure [Le ft Arm] 150/73 H Blood Pressure [Le ft Upper Arm] 154/95 H Blood Pressure [Ri ght Arm] Blood Pressure [or thostatic lying Ri ght Arm] Blood Pressure [or thostatic sitting Right Arm] Blood Pressure [or thostatic standing Right Arm] Pulse Oximetry 96 96 95 Oxygen Delivery Me thod Room Air Room Air 07/02/22 15:00 07/02/22 16:46 07/02/22 16:49 Temperature 98.9 F Pulse Rate Pulse Rate [Right Pulse Oximeter] 126 H 126 H Pulse Rate [orthos tatic lying Right] 126 H Pulse Rate [orthos tatic sitting Righ t] 127 H Pulse Rate [orthos tatic standing Rig ht] 97 Respiratory Rate 24 24 Blood Pressure [Le ft Arm] Blood Pressure [Le ft Upper Arm] Blood Pressure [Ri ght Arm] 163/92 H Blood Pressure [or thostatic lying Ri ght Arm] 163/92 H Blood Pressure [or thostatic sitting Right Arm] 146/98 H Blood Pressure [or thostatic standing Right Arm] 38/28 L Pulse Oximetry 94 Oxygen Delivery Me thod Room Air 07/02/22 16:50 07/02/22 21:42 07/02/22 22:31 Temperature Pulse Rate 97 101 H Pulse Rate [Right Pulse Oximeter] 100 Pulse Rate [orthos tatic lying Right] Pulse Rate [orthos tatic sitting Righ t] Pulse Rate [orthos tatic standing Rig ht] Respiratory Rate 24 Blood Pressure [Le ft Arm] Blood Pressure [Le ft Upper Arm] Blood Pressure [Ri ght Arm] Blood Pressure [or thostatic lying Ri ght Arm] Blood Pressure [or thostatic sitting Right Arm] Blood Pressure [or thostatic standing Right Arm] Pulse Oximetry Oxygen Delivery Sc thod 07/02/22 19:00 07/02/22 23:00 07/03/22 03:00 Temperature 98.9 F 98.4 F 97.9 F Pulse Rate Pulse Rate [Right Pulse Oximeter] 100 98 94 Pulse Rate [orthos tatic lying Right] Pulse Rate [orthos tatic sitting Righ t] Pulse Rate [orthos tatic standing Rig ht] Respiratory Rate 20 20 24 Blood Pressure [Le ft Arm] Blood Pressure [Le ft Upper Arm] Blood Pressure [Ri ght Arm] 141/88 H 157/83 H 159/94 H Blood Pressure [or thostatic lying Ri ght Arm] Blood Pressure [or thostatic sitting Right Arm] Blood Pressure [or thostatic standing Right Arm] Pulse Oximetry 94 96 95 Oxygen Delivery Sc thod Room Air Room Air Room Air 07/03/22 07:00 07/03/22 07:00 07/03/22 10:58 Temperature 97.9 F 97.9 F Pulse Rate Pulse Rate [Right Pulse Oximeter] 90 90 91 Pulse Rate [orthos tatic lying Right] Pulse Rate [orthos tatic sitting Righ t] Pulse Rate [orthos tatic standing Rig ht] Respiratory Rate 24 24 20 Blood Pressure [Le ft Arm] Blood Pressure [Le ft Upper Arm] Blood Pressure [Ri ght Arm] 175/88 H 151/97 H Blood Pressure [or thostatic lying Ri ght Arm] Blood Pressure [or thostatic sitting Right Arm] Blood Pressure [or thostatic standing Right Arm] Pulse Oximetry 96 94 Oxygen Delivery Me thod Room Air Room Air 07/03/22 07:00 Temperature Pulse Rate 103 H Pulse Rate [Right Pulse Oximeter] Pulse Rate [orthos tatic lying Right] Pulse Rate [orthos tatic sitting Righ t] Pulse Rate [orthos tatic standing Rig ht] Respiratory Rate Blood Pressure [Le ft Arm] Blood Pressure [Le ft Upper Arm] Blood Pressure [Ri ght Arm] Blood Pressure [or thostatic lying Ri ght Arm] Blood Pressure [or thostatic sitting Right Arm] Blood Pressure [or thostatic standing Right Arm] Pulse Oximetry Oxygen Delivery Me thod Labs Labs: Laboratory Results - last 24 hr 07/02/22 07/02/22 07/02/22 08:40 08:40 18:10 WBC RBC Hgb Hct MCV MCH MCHC Plt Count VBG pH 7.470 H VBG pCO2 29 L VBG pO2 71.6 H VBG HCO3 21 Lactate 0.7 Troponin I 0.01 C-Reactive Protein 6.7 H TSH 1.310 07/02/22 07/03/22 07/03/22 18:10 06:17 06:17 WBC 13.75 H RBC 4.60 Hgb 12.6 Hct 39.3 MCV 85 MCH 27 MCHC 32 Plt Count 206 VBG pH VBG pCO2 VBG pO2 VBG HCO3 Lactate Troponin I < 0.01 L 0.02 C-Reactive Protein TSH
[2022-07-03] MEDS: 0.9 % SODIUM CHLORIDE 250 ml 250 ML IV (13:02)
[2022-07-03 14:11] LABS: C Reactive Protein* 3.9 mg/dL (0.5-1.0)
[2022-07-03 15:00] VITALS: BP 175/88; PULSE 108; PULSE 94; RESP 20; TEMP 36.9; O2SAT 94
--- NOTE | 2022-07-03 15:09 | PC.SOCIAL ---
Met with pt. and daughter Alison at [phone] to discuss discharge plans. Pt. recently moved to [facility], fell and has rib fractures. Pt. returned back to [facility] with increased services and home care. Pt. needs two to transfer and needs a SNF. Pt. and family prefer [facility]. The [facility] has a bed and can accept. pt. tomorrow. Alison will arrive at 9am to complete paperwork.
[2022-07-03 19:00] VITALS: BP 147/81; PULSE 113; RESP 18; TEMP 36.8; O2SAT 94
--- NOTE | 2022-07-03 19:25 | PC.NURSE ---
pt. alert, pleasant and cooperative today. Pt. does not call appropriately, sets off bed alarm. Pt. incontinent, wears a brief. Repo'd frequently to relieve pressure off sacral area. Sacral mepi applied to pressure sore, CDI. Pitting edema to bilat Lower Extrem. IV infiltrated last night and Pt. refused IV placement but needed an IV for antibiotics for UTI treatment. New IV started in right hand, patent and intact. Tachycardia, sinus Arryth. w/PAC's on tele. [facility] used to transfer pt. d/t being to [facility] to ambulate. Pt. needs assistance w/meals. Sodium Chlor. running at 75 mls/hr restarted this PM. Pt. will transfer to [facility] tomorrow.
[2022-07-03] MEDS: MELATONIN 3 MG TABLET PO (21:31)
[2022-07-03] MEDS: DONEPEZIL 5 MG TABLET PO (21:31)
[2022-07-03 23:00] VITALS: PULSE 113; PULSE 122; RESP 20; TEMP 36.6; O2SAT 94
[2022-07-04] VITALS (10 sets, daily range): BP systolic 119–149; BP diastolic 61–119; PULSE 50–113; RESP 16–22; TEMP 36.2–37.1; O2SAT 92–98
--- NOTE | 2022-07-04 06:18 | PC.NURSE ---
Shift note: Pt oriented to self only, is incontinent. Cooperative throughout the night.
[2022-07-04] MEDS: LIDOCAINE 5% PATCH 1 PATCH TRANSDERMA (07:53)
[2022-07-04] MEDS: cefTRIAXone 1 GM in 0.9 % SODIUM CHLORIDE Mini-bag 100 ML IVPB (07:53)
[2022-07-04] MEDS: OMEPRAZOLE 20 MG CAPSULE DR PO (07:59)
[2022-07-04] MEDS: LEVOTHYROXINE 50 MCG TABLET PO (07:59)
[2022-07-04] MEDS: NYSTATIN CREAM 30 GM 1 APPLIC TOPICAL ×2 (08:00→20:58)
[2022-07-04] MEDS: IPRATROPIUM 200 MCG/ML AMPUL.NEB 500 MCG IH ×2 (08:00→14:46)
[2022-07-04] MEDS: ASPIRIN 81 MG TABLET EC PO (08:00)
[2022-07-04] MEDS: METOPROLOL SUCCINATE (XL) 25 MG TAB PO (08:00)
[2022-07-04] MEDS: SERTRALINE 50 MG TABLET PO (08:01)
[2022-07-04 08:13] LABS: Hematocrit 37.1 % (33.0-51.0); Hemoglobin* 11.9 gm/dL (12.0-16.0); Mean Corpuscular HGB Conc 32 gm/dL (32-36); Mean Corpuscular Hemoglobin 27 pg (26-34); Mean Corpuscular Volume 85 fL (80-100); Platelet Count* 242 K/uL (140-440); Red Blood Count 4.36 m/uL (4.00-5.20); White Blood Count* 12.32 K/uL (4.50-11.00)
[2022-07-04 08:17] LABS: Slide Review Reflex No
[2022-07-04 08:27] LABS: Chloride* 102 mmol/L (96-114); Sodium* 133 mmol/L (135-149)
[2022-07-04 08:30] LABS: Creatinine* 0.5 mg/dL (0.5-1.5); Est. Creatinine Clearance* 31.94; Estimated Glomerular Filt Rate 91 ml/min
[2022-07-04 08:31] LABS: Blood Urea Nitrogen* 9 mg/dL (7-30); Carbon Dioxide* 21 mmol/L (20-32); Glucose* 108 mg/dL (60-115)
[2022-07-04 08:32] LABS: Calcium* 8.4 mg/dL (8.4-10.6)
[2022-07-04 08:54] LABS: C Reactive Protein* 19.7 mg/dL (0.5-1.0)
--- NOTE | 2022-07-04 12:31 | PM.IMPN1 ---
Progress Note: A&P Assessment and plan (1) Failure to thrive syndrome, adult: Problem details: Amaya has decompensated overnight, we had a discussion regarding moving her to the ICU, placing a King catheter, blood cultures, expanding are investigations. Daughter Alison is bedside and feels strongly that supporting her mother's wishes which were very well outlined yesterday that she would not want any heroic measures or painful interventions we are standing by for supportive care. At this time Alison wants to continue antibiotics and wait for her brother to arrive. Amaya appears comfortable and is resting and somnolent. She is not hypotensive, not febrile. With a definitely has been a clinical deterioration in her alertness and action. Potentially transferred downstairs for comfort cares within the next 24 hours. Status: Acute (2) UTI (urinary tract infection): Problem details: Rocephin 1 g Q 24 while hospitalized, we can switch to an oral family desires to continue treatment. Status: Acute (3) Dehydration: Problem details: IV access has been obtained. She has been given appropriate fluid resuscitation. Status: Acute (4) Polypharmacy: Problem details: Not able to safely dispense or take her own meds independently any longer Status: Acute (5) Weakness: Problem details: Gradually progressive, magnified in the last 2-3 days secondary to his UTI and dehydration Status: Acute (6) Multiple falls: Status: Acute (7) Leukocytosis: Problem details: Likely from her UTI Status: Acute (8) Gait instability: Status: Acute Subjective Date Seen: 07/04/22 Interval history: Daily Progress Note - Hospital Medicine Day #: 3 Day 2 of IV 1 gram Rocephin CC: Adult failure to thrive, weakness, repeated falls, UTI OVERNIGHT UPDATES FROM STAFF & MED, LAB, IMAGING UPDATES Kari has taken a turn for the worse overnight. She is much more somnolent this morning. She seems to be resting fairly comfortably. She is confused and delirious when I do however open her eyes and try to respond to me. She falls right back to sleep or looks glassy-eyed with any further interactions. CBC reflects a down trending leukocytosis Hemoglobin is essentially stable. Sodium and potassium are drifting down. Mildly depressed. CRP has jumped up considerably to 19.7 Proteus mirabilis is growing in her urine. This is sensitive to the ceftriaxone she has had yesterday and today. Her blood cultures remain negative. Review of Systems: See subjective Cardiac: No new chest pain/pressure/palpitations. Respiratory: no new dyspnea. GI: No abdominal bloating Objective: Somnolent. Awakes briefly to her name and touch. Falls right back to sleep. Vitals: see above Lungs: Clear. Cardiac: S1S2. Abdomen soft. Disposition/Potential discharge - Likely to return to previous living situation. Total time is 35 minutes with greater than 50% spent in counseling and coordination of care. I spoke with the patient and she very clearly said ?let me go ?if my time is up. She denies wanting CPR, chest compressions, intubation or other forms of life support. She is fine with us treating her current infection and doing therapy to help her become stronger. She is not asking for hospice or comfort care. She is asking to be DNR DNI with active treatment is currently. Daughter was present during this conversation. Exam Const: Vital Signs, click to edit/add: Vital Signs - 24 hr 07/03/22 15:00 07/03/22 15:00 07/03/22 15:00 Temperature 98.5 F Pulse Rate 94 Pulse Rate [Right Pulse Oximeter] 108 H 108 H Respiratory Rate 20 20 Blood Pressure [Le ft Arm] Blood Pressure [Ri ght Arm] 175/88 H Pulse Oximetry 94 Oxygen Delivery Me thod Room Air 07/03/22 19:00 07/03/22 23:00 07/03/22 23:00 Temperature 98.3 F 98 F Pulse Rate Pulse Rate [Right Pulse Oximeter] 113 H 113 H 122 H Respiratory Rate 18 20 Blood Pressure [Le ft Arm] Blood Pressure [Ri ght Arm] 147/81 H Pulse Oximetry 94 94 Oxygen Delivery Me thod Room Air Room Air 07/04/22 03:00 07/04/22 04:24 07/04/22 09:46 Temperature Pulse Rate 113 H 103 H Pulse Rate [Right Pulse Oximeter] 113 H Respiratory Rate 18 Blood Pressure [Le ft Arm] Blood Pressure [Ri ght Arm] Pulse Oximetry 93 Oxygen Delivery Me thod Room Air 07/04/22 07:00 07/04/22 07:00 07/04/22 12:05 Temperature 97.7 F 97.7 F Pulse Rate Pulse Rate [Right Pulse Oximeter] 113 H 113 H 88 Respiratory Rate 18 18 16 Blood Pressure [Le ft Arm] 145/119 H Blood Pressure [Ri ght Arm] 139/84 Pulse Oximetry 94 98 Oxygen Delivery Me thod Room Air Room Air Labs Labs: Laboratory Results - last 24 hr 07/03/22 07/04/22 07/04/22 06:17 07:59 07:59 WBC 12.32 H RBC 4.36 Hgb 11.9 L Hct 37.1 MCV 85 MCH 27 MCHC 32 Plt Count 242 Sodium 133 L Potassium 3.0 L Chloride 102 Carbon Dioxide 21 BUN 9 Creatinine 0.5 Estimated Creat Clear 31.94 Estimated GFR 91 Glucose 108 Calcium 8.4 C-Reactive Protein 3.9 H 19.7 H
[2022-07-04] MEDS: ACETAMINOPHEN 650 MG TABLET ER 1300 MG PO (14:46)
--- NOTE | 2022-07-04 17:38 | PC.NURSE ---
Pt weak and fatigued. unable to participate with OT. PT assisted to commode. pt refused meal trays and supplements, requesting to sleep. Chronic wound to coccyx, encouraged side lying to relieve pressure, pt did agree to this. moist skin, continue to asses to breakdown. crackles to bilateral bases, encouraged IS, pt also recieving nebs. Tylenol for pain. Offered to crush pills however pt verbalized, no i want to take them whole. Pt tolerated this ok but would recommend crushed or with apple sauce. CRP up at 19.7 today from 3.9. Potassium down 3.0 from 4. Dtzeke Rosas present this AM to discuss d/c plans with SS, pt was initially planning on discharging to LTCC today however due to change in condition, pt will stay another night. Plan will be to hold bed in LTCC until tomorrow 07/05. If no improvement pt and family are discussing comfort cares. dtr tearful today and supportive of patient. from [facility] contacted by dtr. Continue IV ceftriaxone. Saline locked.
--- NOTE | 2022-07-04 19:44 | PC.NURSE ---
Pt withdrawn and wanting to sleep all day. continues to refuse trays and supplements. Incontinent. repositioned on right side at 1900. 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 Gown changed today. Skin moist. Afebrile.
[2022-07-04] MEDS: DONEPEZIL 5 MG TABLET PO (20:57)
[2022-07-05 03:00] VITALS: BP 121/105; PULSE 52; RESP 16; TEMP 37; O2SAT 92
[2022-07-05] MEDS: ACETAMINOPHEN 650 MG TABLET ER 1300 MG PO ×2 (03:20→10:27)
[2022-07-05] MEDS: MELATONIN 3 MG TABLET PO (03:23)
--- NOTE | 2022-07-05 06:13 | PC.NURSE ---
Shift note: Pt slept most of the overnight. Upon awakening she would state Just give me a pill and put me to sleep, Just shoot me, I can't live like that anymore, I wanna , just let me . RN administered Tylenol and pt was able to rest for the rest of the night.
[2022-07-05 07:00] VITALS: BP 134/73; PULSE 90; RESP 20; TEMP 36.4; O2SAT 93
[2022-07-05] MEDS: cefTRIAXone 1 GM in 0.9 % SODIUM CHLORIDE Mini-bag 100 ML IVPB (09:28)
[2022-07-05] MEDS: METOPROLOL SUCCINATE (XL) 25 MG TAB PO (09:31)
[2022-07-05] MEDS: OMEPRAZOLE 20 MG CAPSULE DR PO (09:32)
[2022-07-05] MEDS: LEVOTHYROXINE 50 MCG TABLET PO (09:32)
[2022-07-05] MEDS: ASPIRIN 81 MG TABLET EC PO (09:32)
[2022-07-05] MEDS: LIDOCAINE 5% PATCH 1 PATCH TRANSDERMA (09:33)
[2022-07-05] MEDS: IPRATROPIUM 200 MCG/ML AMPUL.NEB 500 MCG IH (09:33)
[2022-07-05] MEDS: SERTRALINE 50 MG TABLET PO (09:33)
[2022-07-05] MEDS: NYSTATIN CREAM 30 GM 1 APPLIC TOPICAL (09:33)
[2022-07-05] MEDS: CIPROFLOXACIN 250 MG TABLET PO (09:55)
--- NOTE | 2022-07-05 12:43 | PC.NURSE ---
Pt eval by Dr. Pichardo. Please see eMar for meds given this am. Mepilex from sacrum removed by hospitalist. Pt's wound on apex of sacrum stage II ulcer cleansed with vasche, wtd dressing with vaseline gauze topically and covered with 4 by 4 gauze. Report called to [facility] per protocol. Pt remains EZ stand with 2 assist. Frequent repositioning, tylenol ES 1300 mg given for pain on her coccyx. Lidoderm patch to right hip. Transferred via w/c to [facility] at 11:00 am with all her personal belongings, glasses and bilateral hearing aides by primary RN and STRUCTURAL IRONWORKER.
--- NOTE | 2022-07-05 17:26 | P.DS_ITS ---
DS: Providers Provider Date Seen: 07/05/22 Date of admission: 07/04/22 14:55 Primary care physician: Gabriel Orozco MD Admitting Clinician: Lizzette Pichardo MD Consults: 07/02/22 15:21 Consult to Occupational Therapy [CONS] Routine Comment: Reason(s) for OT Consult:: Evaluate and Treat Any Restrictions?:: No Restrictions Comment: progressive failure to thrive, more episodes of confusion Consult to Physical Therapy [CONS] Routine Comment: Reason(s) for PT Consult:: Evaluate and Treat Any Restrictions?:: No Restrictions Comment: Weak, falls Consult to Medical Sonographer [CONS] Routine Comment: Reason for Consult:: Discharge Planning Needs Attending Physician on discharge: Lizzette Pichadro MD Date of Discharge: 07/05/22 DS: Diagnosis Discharge Diagnosis (1) UTI (urinary tract infection): Status: Acute Problem details: Proteus isolated. Patient and family decided not to pursue blood cultures or further workup with imaging despite her fluctuating mental status. She received 2 doses of IV ceftriaxone. She was started on Cipro 250 mg b.i.d. she had i mproved and was stable at discharge. (2) Decubitus ulcer of sacral region, stage 1: Status: Acute Problem details: Wet to dry dressings. Shallow. Normal appearing granulation tissue. Mepilex. Frequent turning. (3) Altered mental status: Status: Acute Problem details: Attributed to acute UTI with possible bacteremia. Improved at discharge. (4) Multiple falls: Status: Acute (5) Hearing loss: Status: Acute Problem details: Chronic, uses hearing aids (6) Failure to thrive syndrome, adult: Status: Acute Problem details: Received at our long-term [facility]. She will continue oral Cipro, therapies and treatment for her sacral decubitus ulcer. It is unclear at this time she will be able [facility] DS: Summary Hospital Course Hospital Course: HOSPITALIST DISCHARGE SUMMARY ATTENDING PHYSICIAN: Lizzette Pichardo MD FINAL DIAGNOSIS: Proteus mirabilis UTI Mental status change Generalized failure to thrive Sacral decubitus ulcer, stage 1 HOSPITAL FOLLOWUP ISSUES: 1. Cipro for UTI 2. Wound care for her sacral ulcer 3. OT and PT and detention for her generalized weakness REFERRALS WHILE ADMITTED: OT, PT, social work REFERRALS AFTER DISCHARGE: Long-term care detention facility BRIEF HOSPITAL COURSE: Kari was brought in weak with mental status changes. We thought was multifactorial at the time of admission. However her urine culture did ultimately grow Proteus mirabilis. This was treated with ceftriaxone and was thought to be the reason why she had a mental status change with weakness. She decompensated on day 2 and was much less arousable. Care conference with Alison, daughter, and her son was held. They felt that her mother, and actually to Gonzalez did clearly state this on the day of admission, that she would not want any heroic measures nor painful or life prolonging interventions. At that time we decided not to pursue blood cultures, imaging, transfer to ICU. She was continued on ceftriaxone and supportive care. On day 3 she was brighter and aware and cognizant of her surroundings. She was still weak. She was still a 2 assist. She was accepted to our long-term care facility downstairs. We will continue strengthening and therapies. She will finish her course of treatment for her UTI with oral Cipro. And we will continue to treat the skin breakdown at her sacrum. This predates her hospitalization. We was happy with her care and encouraged by her increased mentation today. VITAL SIGN, MEDICATION, LAB/MICRO, IMAGING SUMMARY (full details available in account tabs or by records request) DISCHARGE MEDICATIONS: See Reconciled list REVIEW OF SYSTEMS No new chest pain or dyspnea Pain controlled No voiding difficulties Tolerating diet challenge PHYSICAL EXAM: CONSTITUTIONAL: Alert. Cognizant. Exceptional short-term memory 4 previous events in the last 48 hours. Anxious. VITAL SIGNS: see record. HEENT: Normocephalic, atraumatic. PERRL, EOMI, conjunctivae pink, no scleral icterus. Ears and nose externally normal. Pharynx normal. NECK: No JVD. No carotid bruit, no thyromegaly, no adenopathy. CHEST: Clear to auscultation bilaterally. HEART: S1 and S2 normal. Edema ABDOMEN: Soft, nontender. Normal bowel sounds. MUSCULOSKELETAL: No gross joint deformity or swelling. NEURO: Cranial nerves intact. Grossly intact. No asymmetric findings. SKIN: Skin breakdown at her sacrum. Consistent with decubitus ulcer. Stage I. Healthy-appearing granulation tissue present. No odor or discharge. No necrotic tissue. PSYCHIATRIC: Mood euthymic. Mildly anxious. DISPOSITION: [facility] long-term care. Time spent on discharge 37 minutes. Status at Discharge Functional status at discharge: wheelchair bound Overall status at discharge: patient is not back to baseline Time Spent with Patient Time attestation: Total time spent providing and/or coordinating discharge services: Time spent: Greater than 30 minutes Exam Const: Vital Signs, click to edit/add: Vital Signs - 24 hr 07/04/22 19:00 07/04/22 23:00 07/04/22 23:00 Temperature 97.2 F L 98.8 F Pulse Rate [Right Pulse Oximeter] 71 112 H 60 Respiratory Rate 22 Blood Pressure [Le ft Arm] Blood Pressure [Ri ght Arm] 119/61 131/83 Pulse Oximetry 95 92 Oxygen Delivery Me thod Room Air Room Air 07/05/22 03:00 07/05/22 07:00 Temperature 98.6 F 97.5 F L Pulse Rate [Right Pulse Oximeter] 52 L 90 Respiratory Rate 16 20 Blood Pressure [Le ft Arm] 121/105 H Blood Pressure [Ri ght Arm] 134/73 Pulse Oximetry 92 93 Oxygen Delivery Me thod Room Air Room Air DS: Data Data Completed and Pending Labs on day of discharge: Preliminary micro results at discharge 07/02/22 10:55 Blood Culture - Preliminary Blood NO GROWTH AFTER 72 HOURS 07/02/22 10:45 Blood Culture - Preliminary Blood NO GROWTH AFTER 72 HOURS Discharge Plan Discharge Disposition: [facility] Date of Admission: 07/04/22 14:55 Attending Provider on Discharge: Lizzette Pichardo Primary Care Provider: Gabriel Orozco Condition: Unchanged Anticipated Discharge Date/Time: 07/05/22 10:02 Discharge Medications: New ciprofloxacin HCl 250 mg Tablet 250 mg PO BID Qty: 10 0RF Rx Instructions: continue until finished Continued I-Maribel 300 mcg-200 mg-27 mg-2 mg tablet 1 tab PO DAILY Rx Instructions: administer after a meal nystatin 100,000 unit/gram Cream 1 applic topical BID Qty: 30 1RF Rx Instructions: Wash and rinse groin region, then pat dry with towel, then apply thin layer of cream - repeat twice daily for min of 2 weeks donepezil 5 mg tablet 5 mg PO HS levothyroxine 50 mcg tablet 50 mcg PO DAILY metoprolol succinate 25 mg tablet extended release 24 hr 25 mg PO DAILY omeprazole 20 mg capsule,delayed release(DR/EC) 20 mg PO DAILY risedronate 35 mg tablet 35 mg PO .WED@06 Spiriva with HandiHaler 18 mcg capsule, w/inhalation device 1 cap INHALATION DAILY melatonin 3 mg capsule 3 mg PO HS PRN lorazepam [Ativan] 0.5 mg tablet 0.5 mg PO HS PRN aspirin 81 mg capsule 81 mg PO DAILY cholecalciferol (vitamin D3) [Vitamin D3] 50 mcg (2,000 unit) capsule 2,000 unit PO DAILY sertraline 100 mg tablet 100 mg PO DAILY lidocaine 4 % adhesive patch,medicated 1 patch topical DAILY Changed acetaminophen [Arthritis Pain Relief (acetam)] 650 mg tablet extended release 1,300 mg PO TID PRN (Reason: pain) Qty: 90 0RF Discharge Orders: Discharge Order (Routine); Ordered 07/05/22 Ordered By: Lizzette Pichardo Activity Restrictions/Additional Instructions: PT/OT. pt is DNR/DNI but would like therapies and try to get back to her apartment at [facility]. This may not be feasible. Activity Level: Activity as Tolerated Discharge Diet: Regular Follow Up Appointments: Gabriel Orozco MD [Primary Care Provider] -
== END 2022-07-05 11:00 | DRG 690 ==
LOC: ED 12:33 → MEDSURG 13:04
PROVIDERS: Internal Medicine; Admitting Provider Family Medicine; Emergency Provider Family Medicine; PCP Surgery; Visit Provider Family Medicine
DX: N39.0 Urinary tract infection, site not specified (principal); R62.7 Adult failure to thrive; B96.4 Proteus (mirabilis) (morganii) as the cause of diseases classified elsewhere; L89.151 Pressure ulcer of sacral region, stage 1; H91.90 Unspecified hearing loss, unspecified ear; J44.9 Chronic obstructive pulmonary disease, unspecified; I10 Essential (primary) hypertension; G62.9 Polyneuropathy, unspecified; M81.0 Age-related osteoporosis without current pathological fracture; E03.9 Hypothyroidism, unspecified; F01.50 Vascular dementia, unspecified severity, without behavioral disturbance, psychotic disturbance, mood disturbance, and anxiety; R26.89 Other abnormalities of gait and mobility; Z91.81 History of falling; S22.41XG Multiple fractures of ribs, right side, subsequent encounter for fracture with delayed healing; E86.0 Dehydration; Z68.22 Body mass index [BMI] 22.0-22.9, adult
CPT/HCPCS: 36415; 70450; 71045; 80048; 81001; 82803; 83605; 84443; 84484; 85025; 85027; 85610; 85730; 86140; 87040; 87086; 87186; 87502; 87634; 87635; 93005; 97161; 97165; 97530; 97535; 99284; 99285; G0378; A9270; J0696; J7030; J7050; J7644

== ENCOUNTER 2022-07-05 10:50 | Inpatient (IN) | payer SELFPAY ==
[2022-07-05 11:29] VITALS: BP 106/72; PULSE 76; RESP 18; TEMP 36.6; O2SAT 91
--- NOTE | 2022-07-05 11:29 | LTC.ADM ---
LTC Admission Note: o Admit from: Med Surg o Mode of transport: wheel chair o Accompanied by: 2 PREVENTION COORDINATOR's o Transferred via: medi stand o Admitting dx: Falls o Mentation: confustion o Vital Signs: 106/72 18 91 76 97.8 o Lung sounds: clear o Overall condition: o Pain:none o Mood/Behavior: o Wound care:yes o Assistance level with ADL?s: assist of 1 o Mobility:assist of 1 o Eating:needs help
--- NOTE | 2022-07-05 12:00 | PC.NURSE ---
WOUND COCCYX: assessed stage 3 pressure ulcer to coccyx. Per family and resident. Chronic. Wound assessment done. Applied Medihoney and mepilex. TRACTOR TRAILER MOVING VAN DRIVER to assess on 07/09/22. Staff to change dressing if needed. Air mattress ordered.
--- NOTE | 2022-07-05 13:57 | PC.NURSE ---
Resident was admitted today from M/S with dementia, recent multiple falls, UTI and rib fractures. Resident was in the hospital 06/17/22-06/19/22 but was not admitted, observation only. She returned to the ED 06/23 and was not admitted, returned again on 06/30/22 and was not admitted until 07/04/22. Resident did not receive a Medicare 3 day qualifying hospital stay. I spoke to daughter, Alison and she understands resident did not receive a qualifying hospital stay. We discussed resident will receive nursing care and therapy. OT was already on the unit and completed an evaluation. Also discussed resident is not up to date with her Covid vaccines and would require 10 days of quarantine. We do have the Bivalent vaccine available to be administered today and daughter gave permission to administer today. Order obtained from Dr. Britt our medical technologist hematology.
[2022-07-05 15:00] VITALS: BP 129/79; PULSE 79; RESP 17; TEMP 36.7; O2SAT 95
--- NOTE | 2022-07-05 15:35 | PC.NURSE ---
Conference held per families request to share their concerns. Present were Reymundo Darnell and Alison Pryor. All have consent to share information with as well as Trent Pryor who was not present. Care center staff were Kaci Schuler and myself. The family shared concerns from previous hospital stays regarding the communication and therapy referral to [facility], referred them to call the Patient Advocate and they will. We explained again that she did not qualify for Medicare A due to no qualifying hospital stay and family was misinformed during hospital stay, she was observation only until yesterday. Discussed the private pay policy and costs up front as well as the care she will receive. M/S provider informed them she would receive therapy 7 days a week, notified them they were misinformed and we would provide 5 days a week therapy in a skilled setting. Resident already received OT evaluation today and will be seen by PT on Friday. It is families goal to have her receive therapy to possible return to her previous independent status and [facility]. We will have a care conference in two weeks to discuss her progress. Resident will receive the Bivalent today and they were pleased and appreciative of the meeting and explanations offered.
--- NOTE | 2022-07-05 16:11 | NUTR.NU ---
Resident admitted today. She has a stage 3 pressure ulcer on coccyx. Regular diet with intake of 75% at lunch today. Plan to provide enlive supplement each day in the afternoon to provide an additional 350 kcals and 20 grams protein per day for healing. NKFA. Resident is in agreement with this. RDN to follow up with full nutrition assessment.
[2022-07-05 19:29] VITALS: BP 116/68; PULSE 78; RESP 18; TEMP 36.6; O2SAT 96
--- NOTE | 2022-07-05 20:34 | REH.OT ---
OT: Hot Beverage Evaluation The patient should use a covered mug and sit at a table due to physical and cognitive deficits.
[2022-07-05] MEDS: CIPROFLOXACIN 250 MG TABLET PO (20:36)
[2022-07-05] MEDS: NYSTATIN CREAM 30 GM 1 APPLIC TOPICAL (20:36)
[2022-07-05] MEDS: DONEPEZIL 5 MG TABLET PO (20:37)
[2022-07-05] MEDS: ACETAMINOPHEN 650 MG TABLET ER 1300 MG PO (20:43)
--- NOTE | 2022-07-05 22:25 | PC.NURSE ---
Resident A&Ox3. Used medistand this shift with Ax2. Ate 75% of dinner with extensive assistance. C/o pain on coccyx r/t stage 3 p.u. Given Tylenol PRN, effective. Air mattress delivered tonight. VSS. ROM WNL. Skin assessment completed by newswriter. Skin intact, using Nystatin cream to groin bilaterally BID.
[2022-07-05 23:12] LABS: SARS PCR* Negative SARS-CoV-2 (Negative)
[2022-07-05 23:30] VITALS: BP 147/81; PULSE 85; RESP 18; TEMP 36.4; O2SAT 94
--- NOTE | 2022-07-06 00:38 | PC.NURSE ---
Admit f/u 2330: Resident awake in bed, slightly confused. Resident denies pain, states that she is having trouble falling asleep. TB Mantoux done. Vital signs all within normal limits.
[2022-07-06 03:29] VITALS: BP 139/75; PULSE 65; RESP 18; TEMP 36.6; O2SAT 94
--- NOTE | 2022-07-06 04:17 | PC.NURSE ---
Admit f/u: Resident in bed, has been frequently trying to get out of bed. VS are with in normal limits. No complaints of pain.
[2022-07-06] MEDS: LEVOTHYROXINE 50 MCG TABLET PO (06:55)
[2022-07-06] MEDS: OMEPRAZOLE 20 MG CAPSULE DR PO (06:55)
[2022-07-06] MEDS: ASPIRIN 81 MG TABLET EC PO (08:23)
[2022-07-06] MEDS: LIDOCAINE 5% PATCH 1 PATCH TRANSDERMA (08:23)
[2022-07-06] MEDS: METOPROLOL SUCCINATE (XL) 25 MG TAB PO (08:23)
[2022-07-06] MEDS: CIPROFLOXACIN 250 MG TABLET PO ×2 (08:23→14:55)
[2022-07-06] MEDS: NYSTATIN CREAM 30 GM 1 APPLIC TOPICAL ×2 (08:23→19:09)
[2022-07-06] MEDS: OCUVITE TABLET 1 TAB PO (08:24)
[2022-07-06] MEDS: SERTRALINE 100 MG TABLET PO (08:28)
[2022-07-06] MEDS: SPIRIVA HANDIHALER INH (08:35)
[2022-07-06 10:06] VITALS: BP 123/76; PULSE 89; RESP 18; TEMP 36.1; O2SAT 95
--- NOTE | 2022-07-06 10:15 | PC.NURSE ---
Admit F/U: Vitals done and charted, dressing changed to coccyx as it was falling off. Resident ate in dining room with no issues.
[2022-07-06] MEDS: ACETAMINOPHEN 650 MG TABLET ER 1300 MG PO (14:55)
[2022-07-06] MEDS: DONEPEZIL 5 MG TABLET PO (19:08)
[2022-07-07] MEDS: OMEPRAZOLE 20 MG CAPSULE DR PO (06:45)
[2022-07-07] MEDS: LEVOTHYROXINE 50 MCG TABLET PO (06:45)
[2022-07-07] MEDS: SPIRIVA HANDIHALER INH (08:05)
[2022-07-07] MEDS: ASPIRIN 81 MG TABLET EC PO (08:05)
[2022-07-07] MEDS: LIDOCAINE 5% PATCH 1 PATCH TRANSDERMA (08:05)
[2022-07-07] MEDS: METOPROLOL SUCCINATE (XL) 25 MG TAB PO (08:05)
[2022-07-07] MEDS: NYSTATIN CREAM 30 GM 1 APPLIC TOPICAL ×2 (08:05→19:51)
[2022-07-07] MEDS: CIPROFLOXACIN 250 MG TABLET PO ×2 (08:05→15:59)
[2022-07-07] MEDS: SERTRALINE 100 MG TABLET PO (08:06)
[2022-07-07] MEDS: OCUVITE TABLET 1 TAB PO (08:06)
[2022-07-07 09:39] VITALS: TEMP 36.4; O2SAT 94
[2022-07-07] MEDS: DONEPEZIL 5 MG TABLET PO (19:51)
--- NOTE | 2022-07-08 01:47 | PC.NURSE ---
Week #3: Skin summary: no skin issues at this time. Temporary care plan reviewed, no change. Care plan reviewed, no change. Bathroom: Resident is frequently incontinent. Is changed in bed, on a schedule.
[2022-07-08] MEDS: LORazepam 0.5 MG TABLET PO (04:12)
--- NOTE | 2022-07-08 05:27 | PC.NURSE ---
Status: Resident called out help me several times even when staff was in room. Resident then complained that she could no breath. SPO2 at 95%. O2 NC at 2L was applied for comfort and, Ativan PRN was given at 0412. Is sleeping now.
[2022-07-08] MEDS: LEVOTHYROXINE 50 MCG TABLET PO (06:30)
[2022-07-08] MEDS: OMEPRAZOLE 20 MG CAPSULE DR PO (07:20)
[2022-07-08] MEDS: ASPIRIN 81 MG TABLET EC PO (08:19)
[2022-07-08] MEDS: LIDOCAINE 5% PATCH 1 PATCH TRANSDERMA (08:19)
[2022-07-08] MEDS: METOPROLOL SUCCINATE (XL) 25 MG TAB PO (08:19)
[2022-07-08] MEDS: CIPROFLOXACIN 250 MG TABLET PO ×2 (08:19→15:26)
[2022-07-08] MEDS: SPIRIVA HANDIHALER INH (08:19)
[2022-07-08] MEDS: SERTRALINE 100 MG TABLET PO (08:20)
[2022-07-08] MEDS: OCUVITE TABLET 1 TAB PO (08:20)
[2022-07-08] MEDS: NYSTATIN CREAM 30 GM 1 APPLIC TOPICAL ×2 (08:20→19:14)
[2022-07-08 09:33] VITALS: PULSE 88; PULSE 98; RESP 24; O2SAT 98
[2022-07-08 09:43] VITALS: TEMP 36.6; O2SAT 96
--- NOTE | 2022-07-08 10:00 | PC.NURSE ---
HEALTH STATUS/Daughter Alison Update: Resident RR 24 and resident using her auxiliary muscles to breath when engineering technical writer went into room. Dopster applied 02 on 2L for comfort. HR 98 at rest. Resident lying in bed at this time, stating she is tired and would like to rest. Daughter at bedside. Called SOFTWARE ENGINEER INTERN Genesis Cain with update on breathing pattern. SOFTWARE ENGINEER INTERN advised talking with family on plan of care. Spoke with daughter Alison about resident showing signs of unstable health. Daughter Alison stated if she got up more and had a new w/c she would be doing better. When asked if she would like to have imagining or labs done on her mother to assess health concerns further. Alison stated I would like to see how therapy goes today and then decide that tomorrow if needed. Resident left to rest with daughter at bedside at this time.
--- NOTE | 2022-07-08 10:30 | PC.NURSE ---
Per OT resident did not participate in OT therapy as she stated she was too tired and wanted to rest.
--- NOTE | 2022-07-08 11:30 | PC.NURSE ---
Family update: Daughter Alison and Son Chris visiting. Resident up for lunch in w/c with a pillow behind her back for comfort. Family concerned that resident did not participate in OT today. Advised that she had refused due to being tired. Daughter wanted to speak with therapy department. Wei from PT came to speak with family about the earlier refusal and that he would be present at 1pm for physical therapy session if they would like to be present. Daughter Alison had concerns that if her mother refuses therapy that therapy will not push further. Wei stated that Amberly does have a right to not participate in therapy if she feels she is not able to. Daughter Alison concerned that resident received oxygen and that now she would become dependent on it. Nurse and therapy educated daughter and son on the use of 02 for comfort. At this time daughter would not like 02 to be used. Daughter Alison also concerned that resident received Ativan at 4:12am and that is why resident is tired today and was unable to participate in therapy this morning. Daughter asked that Ativan be given closer to HS and not during the morning hours. See additional notes for GUM ROLLING MACHINE OPERATOR orders per family request. At this time resident remains in dining room and family is waiting for therapy visit to begin.
--- NOTE | 2022-07-08 12:00 | PC.NURSE ---
CAPITAL EQUIPMENT SPECIALIST UPDATE on CAPITAL EQUIPMENT SPECIALIST binder: Scheduled Melatonin q HS> daughter Alison would like her to have an increase to Melatonin 5mg. Ativan to not be given after midnight. Review if nebs would be beneficial for resident. Tylenol to be scheduled for pain. Assess coccyx wound. Review POLST with family.
[2022-07-08 15:30] VITALS: TEMP 37.8
[2022-07-08] MEDS: ACETAMINOPHEN 650 MG TABLET ER 1300 MG PO (15:30)
[2022-07-08 17:08] VITALS: BP 139/92; PULSE 116; RESP 18; TEMP 37.8; O2SAT 94
[2022-07-08 17:11] VITALS: TEMP 37.8; O2SAT 94
[2022-07-08 18:46] VITALS: TEMP 37.3
[2022-07-08] MEDS: DONEPEZIL 5 MG TABLET PO (19:13)
--- NOTE | 2022-07-08 22:26 | PC.NURSE ---
Week 4 Residents vital signs showed her running a temp. of 100.0 and her pulse rate was up at 116. She was given Tylenol 1300 for a sore throat and this brought the temp. down to 99.1. she is on oral antibiotics for UTI. Mood and Behavior summary: she has been pleasant but due to her dementia is confused and asking when she is going home. She did not receive any Ativan prn and will not receive any after midnight per family request. No changes to the temporary care plan. Resident is new to the facility and has not had any changes in communication,hearing,vision or orientation. Her chronic condition continues to be COPD. No medication changes,she is unable to self administer her medications.
[2022-07-09] MEDS: LEVOTHYROXINE 50 MCG TABLET PO (05:23)
[2022-07-09 08:00] VITALS: TEMP 36.9; O2SAT 95
[2022-07-09] MEDS: OMEPRAZOLE 20 MG CAPSULE DR PO (08:24)
[2022-07-09] MEDS: ASPIRIN 81 MG TABLET EC PO (08:26)
[2022-07-09] MEDS: CIPROFLOXACIN 250 MG TABLET PO ×2 (08:26→15:54)
[2022-07-09] MEDS: LIDOCAINE 5% PATCH 1 PATCH TRANSDERMA (08:26)
[2022-07-09] MEDS: METOPROLOL SUCCINATE (XL) 25 MG TAB PO (08:27)
[2022-07-09] MEDS: SERTRALINE 100 MG TABLET PO (08:27)
[2022-07-09] MEDS: SPIRIVA HANDIHALER INH (08:27)
[2022-07-09] MEDS: OCUVITE TABLET 1 TAB PO (08:27)
[2022-07-09] MEDS: NYSTATIN CREAM 30 GM 1 APPLIC TOPICAL ×2 (08:27→19:35)
--- NOTE | 2022-07-09 11:51 | PC.NURSE ---
PARK MAINTAINER Visit: Ant ALEX here. Resident seen. Order: Discontinue Tylenol 1300mg TID PRN, Melatonin 3mg HS PRN. New: Tylenol 1300mg BID, Melatonin 5mg @ HS, Albuterol Neb BID PRN, Ativan 0.5mg QHS PRN (Give before Midnight).
--- NOTE | 2022-07-09 13:16 | PC.NURSE ---
Wound: Coccyx assessed by ANIMAL ATTENDANT. Order: Apply Wilver Laguna. Change Q48H.
[2022-07-09] MEDS: ACETAMINOPHEN 650 MG TABLET ER 1300 MG PO (15:54)
[2022-07-09] MEDS: MELATONIN 3 MG TABLET 5 MG PO (19:33)
[2022-07-09] MEDS: DONEPEZIL 5 MG TABLET PO (19:33)
[2022-07-10 01:49] VITALS: TEMP 36.8; O2SAT 96
[2022-07-10] MEDS: RISEDRONATE 35 MG PO (07:40)
[2022-07-10] MEDS: METOPROLOL SUCCINATE (XL) 25 MG TAB PO (07:41)
[2022-07-10] MEDS: LEVOTHYROXINE 50 MCG TABLET PO (07:41)
[2022-07-10] MEDS: ACETAMINOPHEN 650 MG TABLET ER 1300 MG PO ×2 (07:41→16:15)
[2022-07-10] MEDS: SPIRIVA HANDIHALER INH (07:41)
[2022-07-10] MEDS: ASPIRIN 81 MG TABLET EC PO (07:41)
[2022-07-10] MEDS: OMEPRAZOLE 20 MG CAPSULE DR PO (07:41)
[2022-07-10] MEDS: CIPROFLOXACIN 250 MG TABLET PO (07:41)
[2022-07-10] MEDS: SERTRALINE 100 MG TABLET PO (07:42)
[2022-07-10] MEDS: OCUVITE TABLET 1 TAB PO (07:42)
[2022-07-10] MEDS: LIDOCAINE 5% PATCH 1 PATCH TRANSDERMA (07:46)
[2022-07-10 13:42] VITALS: TEMP 36.3; O2SAT 95
--- NOTE | 2022-07-10 14:30 | PC.NURSE ---
Status: Resident chewing whole meds, had difficulty swallowing. On ACADEMIC SERVICES COORDINATOR for crush meds.
[2022-07-10] MEDS: MELATONIN 3 MG TABLET 5 MG PO (18:59)
[2022-07-10] MEDS: DONEPEZIL 5 MG TABLET PO (18:59)
[2022-07-10] MEDS: NYSTATIN CREAM 30 GM 1 APPLIC TOPICAL (20:58)
[2022-07-10 22:14] VITALS: TEMP 36.6; O2SAT 94
--- NOTE | 2022-07-10 22:36 | PC.NURSE ---
Res. had difficulty swallowing pills this shift. Pocketing and chewing pills. Used applesauce to help swallowing, but resident began to gag. Noted in [employer] book for crushed meds.
[2022-07-11 03:24] VITALS: TEMP 36.2; O2SAT 94
[2022-07-11] MEDS: LEVOTHYROXINE 50 MCG TABLET PO (06:45)
[2022-07-11] MEDS: OMEPRAZOLE 20 MG CAPSULE DR PO (06:45)
[2022-07-11] MEDS: ACETAMINOPHEN 650 MG TABLET ER 1300 MG PO (08:21)
[2022-07-11] MEDS: LIDOCAINE 5% PATCH 1 PATCH TRANSDERMA (08:21)
[2022-07-11] MEDS: ASPIRIN 81 MG TABLET EC PO (08:21)
[2022-07-11] MEDS: SERTRALINE 100 MG TABLET PO (08:22)
[2022-07-11] MEDS: METOPROLOL SUCCINATE (XL) 25 MG TAB PO (08:22)
[2022-07-11] MEDS: OCUVITE TABLET 1 TAB PO (08:22)
[2022-07-11] MEDS: SPIRIVA HANDIHALER INH (08:22)
[2022-07-11] MEDS: NYSTATIN CREAM 30 GM 1 APPLIC TOPICAL (08:22)
[2022-07-11 09:27] VITALS: TEMP 36.6; O2SAT 92
--- NOTE | 2022-07-11 09:38 | PC.NURSE ---
COVID OUTBREAK TESTING: Residents daughter provided verbal consent for outbreak COVID testing. Resident is currently asymptomatic. Resident/family will be notified only if resident is positive.
--- NOTE | 2022-07-11 10:00 | PC.NURSE ---
Residents daughter came to the desk and advised that she would like to have the nurse practitioner see her mother due to weakness and to have her vital signs taken. Advised daughter that nursing staff takes her mothers vital signs and this has been done frequently with no concerns. Advised that the nurse practitioner role is to order labs, x-rays, and medications that are recommended for further work up. Spoke to daughter about her mothers overall health is progressing. Daughter wanted to talk her brother to decide if visit is needed. After speaking with her brother she returned and told the nurses at the desk that she does not want her mother seen by the HAND BLOCKER. HAND BLOCKER did advise that if resident is having difficulty swallowing her medications that Vitamin D and Occuvite could be dc'd due to longer needed. Advised that Tylenol can be changed to liquid form. Assistant Professor Of Physics and EDWIN spoke with daughter at this time about these recommendation and she was in agreement that these changes can be made at this time. During conversation resident was lying in her bed closing her eyes off and on and stated I just can't swallow those big white pills. I'm tired. Daughter stated if you would just get up and move around not lay in bed you wouldn't be so tired. DON spoke to daughter about the importance of rest at this time to heal and that staff listen to the residents needs and wants. At this time resident resting in bed with eyes closed and daughter at bedside.
--- NOTE | 2022-07-11 10:13 | PC.SPIRITC ---
Engraved Roller Inspector followed up to provide rosary that Amberly requested along with large print instructions and devotional material. I also introduced myself to her children to provide time to process events along with introducing them to the spiritual support available. Amberly is Congregational and her jose practices are important to her.
--- NOTE | 2022-07-11 11:06 | PC.NURSE ---
Order: LATIN AMERICAN STUDIES PROFESSORAnt here. Medications reviewed with daughter. Order: Change Nystatin powder to BID PRN, D/C Vit D3, Ocuvite, Tylenol 1300mg BID. New: Tylenol 650mg TID.
[2022-07-11 11:42] VITALS: BMI 23.9
[2022-07-11 12:12] LABS: SARS PCR* Negative SARS-CoV-2 (Negative)
--- NOTE | 2022-07-11 14:20 | PC.NURSE ---
Status: MATERIALS MGMT TECH, Ant here. Okayed to crush appropriate medications.
[2022-07-11 15:00] VITALS: TEMP 36.9; O2SAT 92
[2022-07-11] MEDS: ACETAMINOPHEN SUSPENSION 1 BOTTLE 650 MG PO (21:34)
[2022-07-11] MEDS: MELATONIN 3 MG TABLET 5 MG PO (21:35)
[2022-07-11] MEDS: DONEPEZIL 5 MG TABLET PO (21:35)
[2022-07-12] MEDS: LORazepam 0.5 MG TABLET PO (02:57)
--- NOTE | 2022-07-12 03:20 | PC.NURSE ---
Status: Resident keeps throwing legs out of bed, calling out help me, and complaining that she knows that she needs to go back to sleep but she can't. Ativan PRN given at 0257. Resident is resting comfortably now.
[2022-07-12 04:01] VITALS: TEMP 36.4; O2SAT 94
[2022-07-12] MEDS: LEVOTHYROXINE 50 MCG TABLET PO (08:32)
[2022-07-12] MEDS: ASPIRIN 81 MG TABLET EC PO (08:32)
[2022-07-12] MEDS: OMEPRAZOLE 20 MG CAPSULE DR PO (08:32)
[2022-07-12] MEDS: METOPROLOL SUCCINATE (XL) 25 MG TAB PO (08:32)
[2022-07-12] MEDS: SERTRALINE 100 MG TABLET PO (08:33)
[2022-07-12] MEDS: SPIRIVA HANDIHALER INH (08:33)
[2022-07-12 10:21] VITALS: TEMP 36.3; O2SAT 94
--- NOTE | 2022-07-12 10:22 | PC.NURSE ---
Resident refused Tylenol and Lidocaine patch. Stated i don't have any pain and I do not need anything. I can't stand the taste of the liquid tylenol. Will continue to monitor for pain symptoms.
[2022-07-12] MEDS: ACETAMINOPHEN SUSPENSION 1 BOTTLE 650 MG PO ×2 (11:34→20:31)
--- NOTE | 2022-07-12 14:54 | PC.SOCIAL ---
Phone call to Resident's daughter, Alison Pryor. Set up care conference for resident on Saturday July 16, 2022 at 2:00 pm. Alison will let her brother, Chris, know about the care conference and they will attend in person.
[2022-07-12 15:00] VITALS: TEMP 36.6; O2SAT 94
[2022-07-12] MEDS: DONEPEZIL 5 MG TABLET PO (20:31)
[2022-07-12] MEDS: MELATONIN 3 MG TABLET 5 MG PO (20:31)
[2022-07-13 00:15] VITALS: TEMP 36.3; O2SAT 94
[2022-07-13] MEDS: LEVOTHYROXINE 50 MCG TABLET PO (05:32)
[2022-07-13] MEDS: NYSTATIN CREAM 30 GM 1 APPLIC TOPICAL (07:35)
[2022-07-13] MEDS: ACETAMINOPHEN SUSPENSION 1 BOTTLE 650 MG PO ×3 (08:19→19:41)
[2022-07-13] MEDS: OMEPRAZOLE 20 MG CAPSULE DR PO (08:19)
[2022-07-13] MEDS: ASPIRIN 81 MG TABLET EC PO (08:19)
[2022-07-13] MEDS: METOPROLOL SUCCINATE (XL) 25 MG TAB PO (08:19)
[2022-07-13] MEDS: LIDOCAINE 5% PATCH 1 PATCH TRANSDERMA (08:19)
[2022-07-13] MEDS: SPIRIVA HANDIHALER INH (08:20)
[2022-07-13] MEDS: SERTRALINE 100 MG TABLET PO (08:20)
[2022-07-13 09:57] VITALS: TEMP 36.6; O2SAT 92
[2022-07-13 15:00] VITALS: TEMP 36.6; O2SAT 9
[2022-07-13] MEDS: MELATONIN 3 MG TABLET 5 MG PO (19:41)
[2022-07-13] MEDS: DONEPEZIL 5 MG TABLET PO (19:41)
[2022-07-14 02:14] VITALS: TEMP 36.8; O2SAT 95
[2022-07-14] MEDS: OMEPRAZOLE 20 MG CAPSULE DR PO (06:58)
[2022-07-14] MEDS: LEVOTHYROXINE 50 MCG TABLET PO (06:59)
[2022-07-14] MEDS: ASPIRIN 81 MG TABLET EC PO (07:47)
[2022-07-14] MEDS: ACETAMINOPHEN SUSPENSION 1 BOTTLE 650 MG PO ×3 (07:47→19:32)
[2022-07-14] MEDS: SPIRIVA HANDIHALER INH (07:48)
[2022-07-14] MEDS: SERTRALINE 100 MG TABLET PO (07:48)
[2022-07-14] MEDS: METOPROLOL SUCCINATE (XL) 25 MG TAB PO (07:48)
[2022-07-14] MEDS: LIDOCAINE 5% PATCH 1 PATCH TRANSDERMA (07:56)
[2022-07-14 10:47] VITALS: TEMP 36.4; O2SAT 93
[2022-07-14 13:15] VITALS: BMI 23.6
[2022-07-14 16:50] VITALS: TEMP 36.6; O2SAT 95
[2022-07-14] MEDS: LORazepam 0.5 MG TABLET PO (19:31)
[2022-07-14] MEDS: MELATONIN 3 MG TABLET 5 MG PO (19:32)
[2022-07-14] MEDS: DONEPEZIL 5 MG TABLET PO (19:32)
--- NOTE | 2022-07-14 21:55 | PC.NURSE ---
Confusion at Bedtime: Resident was gotten ready for bed and fell asleep for a short time. Woke up very confused. Needed to know were she was and why she was here. She was aggitated so gave her prn Ativan. She was able to relax and go to sleep.
[2022-07-14 23:00] VITALS: TEMP 36.6; O2SAT 95
--- NOTE | 2022-07-15 01:01 | PC.NURSE ---
Week #4: Care Plan problems #[id number], Temporary Care Plan, and vital signs reviewed - no changes made, and nothing added.? Vital signs are within resident's normal ranges. No changes in hearing, vision, and orientation noted at this time.?Will use call light when needs care or help during NOC. Prefers sleeping with TV on. Mood/behavior. No behavioral concerns noted or reported so far, tonight. Resident is on Psychotropic medications: Sertraline 100 mg daily, and Melatonin 5 mg NOC.
[2022-07-15] MEDS: LEVOTHYROXINE 50 MCG TABLET PO (06:53)
[2022-07-15] MEDS: OMEPRAZOLE 20 MG CAPSULE DR PO (06:53)
[2022-07-15] MEDS: LIDOCAINE 5% PATCH 1 PATCH TRANSDERMA (07:54)
[2022-07-15] MEDS: ASPIRIN 81 MG TABLET EC PO (07:54)
[2022-07-15] MEDS: METOPROLOL SUCCINATE (XL) 25 MG TAB PO (07:54)
[2022-07-15] MEDS: SERTRALINE 100 MG TABLET PO (07:55)
[2022-07-15] MEDS: SPIRIVA HANDIHALER INH (07:55)
[2022-07-15 10:01] VITALS: TEMP 36.4; O2SAT 94
--- NOTE | 2022-07-15 10:30 | PC.NURSE ---
COVID OUTBREAK TESTING: Residents daughter provided verbal consent for outbreak COVID testing. Resident is currently asymptomatic. Resident/family will be notified only if resident is positive.
[2022-07-15 12:35] LABS: SARS PCR* Negative SARS-CoV-2 (Negative)
--- NOTE | 2022-07-15 12:51 | NUTR.NU ---
Week #4: Care Plan problems #[id number], Temporary Care Plan, and vital signs reviewed - no changes made, and nothing added.?Resident spend her time napping or resting in her room, not very keen to participate in activities. Vital signs are within resident's normal ranges. No changes in hearing, vision, and orientation noted at this time.?Resident ambulates with encouragement using walker to dining area. Mood/behavior. Mood pleasant and no behavioral concerns noted or reported Resident is on Psychotropic medications: Sertraline 100 mg daily, and Melatonin 5 mg NOC. She is unable to administer medication on her own.
--- NOTE | 2022-07-15 13:00 | PC.NURSE ---
Discontinued air mattress. Air mattress causing resident a difficult time getting in and out of bed with staff and causing her legs to move off the bed at time. With her weakness at this time she was unable to get legs back in bed d/t air mattress. Risk and benefits reviewed. Called [employer] to have mattress picked up.
[2022-07-15] MEDS: DONEPEZIL 5 MG TABLET PO (19:19)
[2022-07-15] MEDS: MELATONIN 3 MG TABLET 5 MG PO (19:22)
[2022-07-15 21:01] VITALS: TEMP 36.4; O2SAT 93
[2022-07-15 21:02] VITALS: BP 154/68; PULSE 64; RESP 8; TEMP 36.4
[2022-07-16 03:59] VITALS: TEMP 36.4; O2SAT 94
[2022-07-16] MEDS: LEVOTHYROXINE 50 MCG TABLET PO (07:25)
[2022-07-16] MEDS: LIDOCAINE 5% PATCH 1 PATCH TRANSDERMA (07:25)
[2022-07-16] MEDS: ASPIRIN 81 MG TABLET EC PO (07:25)
[2022-07-16] MEDS: OMEPRAZOLE 20 MG CAPSULE DR PO (07:25)
[2022-07-16] MEDS: ACETAMINOPHEN SUSPENSION 1 BOTTLE 650 MG PO (07:25)
[2022-07-16] MEDS: METOPROLOL SUCCINATE (XL) 25 MG TAB PO (07:25)
[2022-07-16] MEDS: SPIRIVA HANDIHALER INH (07:26)
[2022-07-16] MEDS: SERTRALINE 100 MG TABLET PO (07:26)
[2022-07-16 10:46] VITALS: TEMP 36.9; O2SAT 92
--- NOTE | 2022-07-16 11:55 | PC.SPIRITC ---
Film Printer provided visit for support and connection. Amberly did not feel up to going to [facility] today, so the liaison from [facility] made sure to stop by to offer communion.
[2022-07-16 13:19] VITALS: TEMP 36.8; O2SAT 98
[2022-07-16] MEDS: DONEPEZIL 5 MG TABLET PO (19:18)
[2022-07-16] MEDS: MELATONIN 3 MG TABLET 5 MG PO (19:18)
[2022-07-17 03:40] VITALS: TEMP 36.6; O2SAT 91
[2022-07-17] MEDS: ACETAMINOPHEN SUSPENSION 1 BOTTLE 650 MG PO ×2 (05:52→16:26)
[2022-07-17] MEDS: RISEDRONATE 35 MG PO (07:18)
[2022-07-17] MEDS: LIDOCAINE 5% PATCH 1 PATCH TRANSDERMA (07:21)
[2022-07-17] MEDS: ASPIRIN 81 MG TABLET EC PO (07:21)
[2022-07-17] MEDS: OMEPRAZOLE 20 MG CAPSULE DR PO (07:21)
[2022-07-17] MEDS: LEVOTHYROXINE 50 MCG TABLET PO (07:21)
[2022-07-17] MEDS: METOPROLOL SUCCINATE (XL) 25 MG TAB PO (07:22)
[2022-07-17] MEDS: SPIRIVA HANDIHALER INH (07:22)
[2022-07-17] MEDS: SERTRALINE 100 MG TABLET PO (07:23)
[2022-07-17 09:50] VITALS: TEMP 35.5
[2022-07-17 15:00] VITALS: TEMP 36.4; O2SAT 91
[2022-07-17] MEDS: DONEPEZIL 5 MG TABLET PO (20:52)
[2022-07-17] MEDS: MELATONIN 3 MG TABLET 5 MG PO (20:52)
[2022-07-18 03:37] VITALS: TEMP 36.9; O2SAT 95
[2022-07-18] MEDS: OMEPRAZOLE 20 MG CAPSULE DR PO (07:45)
[2022-07-18] MEDS: LEVOTHYROXINE 50 MCG TABLET PO (07:46)
[2022-07-18] MEDS: METOPROLOL SUCCINATE (XL) 25 MG TAB PO (07:46)
[2022-07-18] MEDS: ASPIRIN 81 MG TABLET EC PO (07:46)
[2022-07-18] MEDS: SPIRIVA HANDIHALER INH (07:47)
[2022-07-18] MEDS: SERTRALINE 100 MG TABLET PO (07:47)
[2022-07-18] MEDS: ACETAMINOPHEN SUSPENSION 1 BOTTLE 650 MG PO (08:50)
[2022-07-18] MEDS: LIDOCAINE 5% PATCH 1 PATCH TRANSDERMA (09:26)
--- NOTE | 2022-07-18 10:00 | PC.NURSE ---
Lab request. Daughter Alison came to the nurses station wanting to have labs and UA/UC done today on her mother as she feels that the UTI may have returned causing her to be more exhaused and confused. Updated WELT POCKET MACHINE OPERATOR Genesis Cain.
[2022-07-18 10:18] LABS: Basophils Absolute Auto 0.02 K/uL (0.00-0.30); Basophils Percent Auto 0.2 % (0.0-3.0); Eosinophils Absolute Auto 0.05 K/uL (0.00-0.50); Eosinophils Percent Auto 0.5 % (0.0-7.0); Hematocrit 38.3 % (33.0-51.0); Hemoglobin* 12.2 gm/dL (12.0-16.0); Immature Granulocytes Abs Auto 0.05 K/uL (0.00-0.30); Lymphocytes Percent Auto 7.4 % (20-44); Mean Corpuscular HGB Conc 32 gm/dL (32-36); Mean Corpuscular Hemoglobin 27 pg (26-34); Mean Corpuscular Volume 86 fL (80-100); Monocytes Percent Auto 8.3 % (0.0-11.0); Neutrophils Percent Auto 83.1 % (42.0-72.0); Platelet Count* 373 K/uL (140-440); RDW Coefficient of Variation % 15.3 % (11.5-15.5); Red Blood Count 4.45 m/uL (4.00-5.20); White Blood Count* 10.33 K/uL (4.50-11.00)
[2022-07-18 10:19] LABS: Slide Review Reflex No
[2022-07-18 10:41] LABS: Chloride* 94 mmol/L (96-114); Potassium* 3.5 mmol/L (3.6-5.1); Sodium* 131 mmol/L (135-149)
[2022-07-18 10:44] LABS: Blood Urea Nitrogen* 10 mg/dL (7-30); Carbon Dioxide* 29 mmol/L (20-32); Creatinine* 0.7 mg/dL (0.5-1.5); Est. Creatinine Clearance* 31.35; Estimated Glomerular Filt Rate 84 ml/min
[2022-07-18 10:45] LABS: Calcium* 8.8 mg/dL (8.4-10.6)
[2022-07-18 10:49] LABS: Glucose* 353 mg/dL (60-115)
--- NOTE | 2022-07-18 11:00 | PC.NURSE ---
CLIENT INSIGHTS CONSULTANT reviewed labs and asked the nursing staff add salt to patients diet due to low sodium, potassium and chloride.
[2022-07-18 12:44] VITALS: TEMP 36.9; O2SAT 94
--- NOTE | 2022-07-18 12:53 | PC.NURSE ---
Lab result: received blood sugar result at 11am : 353 ( random) N/P here and was notified .
--- NOTE | 2022-07-18 13:50 | PC.NURSE ---
c/o pain left wrist, calling for help and crying at 0800. Given Syrup Tylenol and informed her that it is Acetaminophen and it will help with her pain, she took it reluctantly as she feel that it was Tylenol. It was effective as she manage to do PT/OT with any complaint. She sat up near the patio after breakfast enjoying the sunshine. Dressing changed at coccyx with Medihoney and Mepilex and it was clean. To continue to position her for wound healing .
[2022-07-18 15:00] VITALS: TEMP 36.5; O2SAT 93
--- NOTE | 2022-07-18 15:00 | PC.NURSE ---
CARE CONFERENCE: Care conference meeting held with all members of care team present via phone or report. Due to residents cognition level she did not participate. Daughter Alison, son and daughter law present. PT reviewed that resident has made progress from using the EZ stand to transferring and ambulating with staff with use of gait belt and walker with 1 assist. Recommends that she will continually need 1 assist going forward. Will continue to see resident for another 1-2 weeks. At this time recommendation is she receive 24 hr 1 assist care. OT reviewed that resident is having difficulty participating in OT at times due to feeling exhausted or unable to participate d/t cognition. Discussed that resident has had increased negative self talk during sessions. Family has been noted to be saying things to resident like can't shouldn't be in your vocabulary. Therapy discussed that resident maybe internalizing these types of conversations. MoCa done and scored 07/19. BIMS 08/03. OT will continue to see her 1-2 weeks. Nursing reviewed that resident continues to need 1 assist with adls, transfers, and mobility. Staff propels resident in w/c when needed. Discussed that resident has been incontinent of bowel and bladder. Discussed medications and dx associated with them. Copy given to family. Family had questions about Zoloft and if the increase in the beginning of the month maybe causing confusion. Advised and given education on the dx of vascular dementia and COPD to charline Rosas for further understanding of what the residents dx entals. Discussed labs drawn today. DNR/DNI. Uses no restraints. Does use 2 side rails up to assist with positioning.? Resident is given medications by staff.? Vulnerable due to mobility limitations, cognition and hearing loss. Discussed stage 3 pressure ulcer and treatment that is being done. Discussed that resident eats approximately 50% of meals, enlive, and ensure with staff assistance at times. Discussed weight. Discussed that resident does yell out during activities and in her room at times. She usually is able to participate for around 20 minutes. At that time she asks to go back to her room so she can sleep. Family made comments during the care conference that it appears that resident will be staying at the care center after therapy is complete but would like to have another care conference when therapy discharges before making an official decision. No further questions/concerns at this time.
--- NOTE | 2022-07-18 16:09 | PC.SOCIAL ---
Resident's care conference was held today. Resident's daughter, son, and [id number] attended. Resident continues to work with therapy but therapy recommendation is 12/05 care and pt. will always be a one assist. Resident's [place] is a 07/19. Updated Elly the Director of [facility] that resident is continuing with therapy and will most likely be terminal superintendent, since resident resides there. Family is supportive but plans to take a break from visiting resident for a few days.
[2022-07-18] MEDS: MELATONIN 3 MG TABLET 5 MG PO (20:28)
[2022-07-18] MEDS: DONEPEZIL 5 MG TABLET PO (20:28)
[2022-07-18 21:19] LABS: Appearance Urine Clear (Clear); Bilirubin Urine Negative (Negative); Blood Urine Trace-intact (Negative); Color Urine Yellow (Yellow); Glucose Urine Trace (Negative); Ketones Urine Negative (Negative); Leukocyte Esterase Urine Negative (Negative); Nitrite Urine Negative (Negative); Protein Urine 2+ (Negative); Specific Gravity Urine 1.025 (1.000-1.030); Urobilinogen Urine 0.2 (0.2-1.0)
--- NOTE | 2022-07-18 21:26 | PC.NURSE ---
Urine collection: After several encouragements and attempts to get residents to urinate in a Hat failed, straight catheterization was perform at 2100 to send urine specimen to the lab. Resident tolerated procedure well.
[2022-07-18 21:33] LABS: RBC Urine 0-2 (0-2); Squamous Epithelial Cell Urine Few (None-Few); WBC Urine 0-2 (0-5)
[2022-07-18 22:29] VITALS: TEMP 36.5; O2SAT 93
--- NOTE | 2022-07-19 02:19 | PC.NURSE ---
UA/UC: Lab test completed. See posted results for analysis.
[2022-07-19] MEDS: LEVOTHYROXINE 50 MCG TABLET PO (07:58)
[2022-07-19] MEDS: OMEPRAZOLE 20 MG CAPSULE DR PO (07:58)
[2022-07-19] MEDS: ASPIRIN 81 MG TABLET EC PO (07:58)
[2022-07-19] MEDS: SPIRIVA HANDIHALER INH (07:59)
[2022-07-19] MEDS: METOPROLOL SUCCINATE (XL) 25 MG TAB PO (07:59)
[2022-07-19] MEDS: SERTRALINE 100 MG TABLET PO (08:00)
[2022-07-19] MEDS: ACETAMINOPHEN SUSPENSION 1 BOTTLE 650 MG PO ×2 (08:09→19:32)
[2022-07-19] MEDS: LIDOCAINE 5% PATCH 1 PATCH TRANSDERMA (08:28)
[2022-07-19 10:49] VITALS: TEMP 36.2; O2SAT 94
--- NOTE | 2022-07-19 13:42 | PC.NURSE ---
Urine results sent to GAUGE CHECKER this morning: Per GAUGE CHECKER Genesis Cain. UA is unremarkable, no UTI.?Daughter Alison updated. No questions concerns at this time.
[2022-07-19] MEDS: MELATONIN 3 MG TABLET 5 MG PO (19:32)
[2022-07-19] MEDS: DONEPEZIL 5 MG TABLET PO (19:32)
--- NOTE | 2022-07-19 20:06 | PC.NURSE ---
MDS clarification: Reviewed MDS ADL charting for JULIAN 07/12, noted to have inconsistent charting. Interviewed NARs and determined that errors were made. Reviewed with staff. Resident extensive assist of 2 with bed mobility due to pain/weakness/cognition. Resident using EZ stand for transfers. Non ambulatory with staff. Has been ambulating short distance with PT during JULIAN. Mode of locomotion w/c. Resident extensive assist of 1 with transfers. Resident needs assist with propelling w/c 1 extensive assist. Dressing 1 extensive assist needed. Eating limited assist of 1. Toileting 1 extensive assist. Hygiene 1 extensive assist. Assist need with ADLS d/t weakness and cognition. Coded as such in MDS.
[2022-07-19 21:59] VITALS: TEMP 36.6; O2SAT 92
--- NOTE | 2022-07-19 22:05 | PC.NURSE ---
Resident transferred with Ax2 from recliner to w/c. Res. very weak when attempting to transfer before supper. Used medistand during this transfer and for the rest of the evening shift. Poor appetite, only ate bites for supper. Refused nourishment. C/o pain in shoulders and legs. Was given Tylenol and provided relief. Was incontinent of bowel @ 2100. Was changed in bed per her request. She did not want to get up to the bathroom, was afraid of falling with ambulation and fearful of the lift. Resident sleeping at this time.
[2022-07-19] MEDS: LORazepam 0.5 MG TABLET PO (23:31)
[2022-07-20 03:57] VITALS: TEMP 36.4; O2SAT 94
[2022-07-20] MEDS: LEVOTHYROXINE 50 MCG TABLET PO (07:56)
[2022-07-20] MEDS: ASPIRIN 81 MG TABLET EC PO (07:56)
[2022-07-20] MEDS: OMEPRAZOLE 20 MG CAPSULE DR PO (07:56)
[2022-07-20] MEDS: SERTRALINE 100 MG TABLET PO (07:58)
[2022-07-20] MEDS: SPIRIVA HANDIHALER INH (07:58)
[2022-07-20] MEDS: LIDOCAINE 5% PATCH 1 PATCH TRANSDERMA (07:58)
[2022-07-20] MEDS: METOPROLOL SUCCINATE (XL) 25 MG TAB PO (07:58)
[2022-07-20 10:42] VITALS: TEMP 36.2; O2SAT 95
--- NOTE | 2022-07-20 13:45 | PC.NURSE ---
Skin concern: Resident`s coccyx area very red, need to reposition to off load every 2 hours.
[2022-07-20 15:00] VITALS: TEMP 36.4; O2SAT 93
[2022-07-20] MEDS: ACETAMINOPHEN SUSPENSION 1 BOTTLE 650 MG PO (20:22)
[2022-07-20] MEDS: MELATONIN 3 MG TABLET 5 MG PO (20:22)
[2022-07-20] MEDS: DONEPEZIL 5 MG TABLET PO (20:22)
--- NOTE | 2022-07-20 21:19 | PC.NURSE ---
Resident heard in hallway yelling from room Help me, help me, help me. In bed watching TV at this time. C/o pain on coccyx d/t wound. Mepilex was soiled and changed by rewriter. Was given Tylenol @ 2021. Somewhat effective upon reassessment. Repositioned every 2 hours this shift. Bottom is red and sensi-care applied.
[2022-07-20 23:00] VITALS: TEMP 36.7; O2SAT 92
[2022-07-21] MEDS: ACETAMINOPHEN SUSPENSION 1 BOTTLE 650 MG PO (04:45)
[2022-07-21] MEDS: LEVOTHYROXINE 50 MCG TABLET PO (08:33)
[2022-07-21] MEDS: LIDOCAINE 5% PATCH 1 PATCH TRANSDERMA (08:33)
[2022-07-21] MEDS: METOPROLOL SUCCINATE (XL) 25 MG TAB PO (08:33)
[2022-07-21] MEDS: OMEPRAZOLE 20 MG CAPSULE DR PO (08:33)
[2022-07-21] MEDS: ASPIRIN 81 MG TABLET EC PO (08:33)
[2022-07-21] MEDS: SPIRIVA HANDIHALER INH (08:33)
[2022-07-21] MEDS: SERTRALINE 100 MG TABLET PO (08:34)
[2022-07-21 09:00] VITALS: BMI 20.6
[2022-07-21 10:00] VITALS: BP 117/66; PULSE 50; RESP 16; TEMP 37.1; O2SAT 90
[2022-07-21 14:48] VITALS: TEMP 37.1; O2SAT 90
--- NOTE | 2022-07-21 14:59 | PC.NURSE ---
Discontinued bed/chair alarm. Resident has not been self transferring. Put on hourly checks. Interventions updated.
[2022-07-21 15:00] VITALS: TEMP 37.3; O2SAT 93
--- NOTE | 2022-07-21 15:01 | PC.NURSE ---
Resident changed rooms. Now in room 261 for more space in room. Daughter Alison here and discussed/agreed. Pharmacies updated.
[2022-07-21] MEDS: MELATONIN 3 MG TABLET 5 MG PO (19:42)
[2022-07-21] MEDS: DONEPEZIL 5 MG TABLET PO (19:42)
[2022-07-21] MEDS: LORazepam 0.5 MG TABLET PO (23:05)
--- NOTE | 2022-07-22 | PC.NURSE ---
TB Mantoux: Resident received TB Mantoux on 07/19/22. Result it negative, 0mm.
[2022-07-22 02:51] VITALS: TEMP 36.7; O2SAT 91
[2022-07-22] MEDS: LEVOTHYROXINE 50 MCG TABLET PO (06:46)
[2022-07-22] MEDS: OMEPRAZOLE 20 MG CAPSULE DR PO (06:46)
[2022-07-22] MEDS: METOPROLOL SUCCINATE (XL) 25 MG TAB PO (08:31)
[2022-07-22] MEDS: LIDOCAINE 5% PATCH 1 PATCH TRANSDERMA (08:31)
[2022-07-22] MEDS: ASPIRIN 81 MG TABLET EC PO (08:31)
[2022-07-22] MEDS: SERTRALINE 100 MG TABLET PO (08:32)
[2022-07-22] MEDS: SPIRIVA HANDIHALER INH (08:32)
[2022-07-22 10:34] VITALS: TEMP 36.1; O2SAT 97
[2022-07-22 11:36] LABS: SARS PCR* Negative SARS-CoV-2 (Negative)
--- NOTE | 2022-07-22 15:21 | REH.OTCOG ---
Cognitive Assessment Report [facility]: Occupational Therapy Department Patient: Amberly Darnell Date: 07/22/22 Tests Performed and Interpretations 1. [place] Cognitive Assessment (MoCA) Score: 26-30 = Normal cognition A score of less than 26 indicates need for further cognitive assessments [place] Cognitive Assessment (MoCA) - Blind version (Low vision) Score: 18-22 = Normal cognition A score of less than 22 indicates need for further cognitive assessments 2. Safety and Problem-Solving Questionnaire Score: A score of less than 15 indicates deficits with safety awareness and problem-solving 3. [place] Making Test Part A Score: Average score = 29 seconds Deficit indicated when greater than 78 seconds; indicates need for further driving evaluation assessments Part B Score: Average score = 75 sec Deficit indicated when greater than 273 seconds; Indicates need for further driving evaluation assessments 4. Maze Test Score: Maze Task completed in 61 seconds or longer, with or without errors, then the participant is not cognitively fit to drive safely. Maze Task completed in up to 60 seconds, but with two or more errors, then the participant is not cognitively fit to drive safely. Maze Task completed in up to 60 seconds, with zero or one error, then the participant is likely to have adequate capacity in the cognitive domains of attention, visuoconstructional skills, and executive functions of planning and foresight, to drive safely. 5. Cognitive Performance Test (CPT) Score: Normal function = 5.6 CPT Interpretation: CPT Level 5.6: Normal function. The person can use complex information to carry out activities with accuracy and safety. Person may live alone and work CPT Level 5.4: (?Good in familiar environments?) Mild functional decline. May not distinguish hazardous complications in situations or environments that require new learning. May have some difficulty in social relationships ? may need consultation to point out undesirable social consequences of not considering needs of others. Person may live alone and work in a job with a wide margin of error. Person may not be safe in jobs with a high potential for industrial accidents. CPT Level 5.0-5.2: (?Doing fine, but needs a little help?) Mild functional decline, start of difficulty with complex tasks including keeping track of details, decision making, planning, insight, and organization. May have some difficulty in situations or environments that require new learning. Live alone with weekly safety checks Considerations: 1) Managing medications and health care Medication box Medication Schedule Written notes/reminders 2) Managing finances Automatic bill pay Online banking for family to check transactions [place] power of deputy county attorney 3) Driving Complete driving evaluation 4) Meal planning and preparation Cook familiar meals; simplify process (microwave/ freezer meals) Appliances with automatic shut-off Create a weekly meal schedule 5) Shopping Shop with someone Create shopping lists 6) Managing schedule/calendar Use calendar and reminder notes Use checklists Use daily/weekly schedules CPT Level 4.6-4.8: Good at some things, slipping on others. Person may not be aware of his or her own deficits and may be able to verbally speak better than they can actually perform. Can learn new information with repetition, but learning may not easily generalize to different settings. May live alone with daily assistance ? senior apartment, assisted living, home with daily checks Considerations: 1) Managing medications and health care Supervision for set-up and compliance Medication box Medication schedule 2) Managing finances May require total or close supervision Automatic bill pay Online banking for family to check transactions [place] power of deputy county attorney 3) Driving Driving evaluation Alternative transportation arrangements 4) Meal planning and preparation Assistance recommended with meal planning, grocery shopping, and cooking 5) Shopping Shop with someone Create shopping lists 6) Managing schedule/calendar Use of a large calendar in plain sight Assistance to establish and maintain a daily routine Daily/weekly planners 7) Safety Shower adaptive equipment: shower chair/bath bench, grab bars, and hand held shower head Supervise use of power tools Remove unsteady furniture, small rugs, and objects from floor 8) Dressing and hygiene Reminders to wash/dress appropriately Reminders to use sunscreen 9) Laundry Assistance to monitor frequency CPT Level 4.5: (?Crisis level?) Good at some things, slipping on others. Person may not be aware of his or her own deficits and may be able to verbally speak better than they can actually perform. Can learn new information with repetition, but learning may not easily generalize to different settings. May live alone with daily assistance ? senior apartment, assisted living, home with daily checks Considerations: 1) Managing medications and health care Total or close supervision for set-up and compliance 2) Managing finances May require total or close supervision 3) Meal planning and preparation Assistance recommended with meal planning, shopping, and cooking 4) Shopping Shop with someone Create shopping lists 5) Transportation Driving not recommended; arrange alternative transportation 6) Managing calendar/schedule Use of a large calendar in plain sight Assistance to establish and maintain daily routine Use daily/weekly planners 7) Laundry Assistance to monitor frequency 8) Bathing/hygiene Monitor frequency/quality 9) Safety Shower adaptive equipment: shower chair/bath bench, grab bars, and hand held shower head Supervise use of power tools Remove unsteady furniture, small rugs and objects from floor Helpful learning strategies: Provide cues to assist with focusing on the present task Teach tasks using demonstration, verbal instruction, slow pace and repetition- one task at a time Practice safety routines and tasks frequency Assistance required to sequence steps of activities, particularly when novel Person may not be able to generalize learning across different environments, therefore assistance should be provided in new situations or environments Avoid giving directions over the phone or in writing Person may only recognize immediate or concrete consequences of actions and will require assistance for realistic planning and goal setting CPT level 4.0-4.4 (?Problems are more obvious?) Unable to complete daily tasks and difficulty with self care tasks. Shows decreased initiation and completion of self care tasks. Significant decline in memory and inability to plan, reason, and maintain own safety. Live alone with capable adult, may be able to be alone for parts of the day, appropriate for assisted living 24 Hour supervision recommended to ensure safety Considerations: 1) Managing medications Caregiver assumes all responsibility for set-up and compliance Observe person as they swallow medication 2) Managing finances May require total supervision 3) Transportation and shopping Driving is not recommended; arrange alternative transportation 4) Meal management Assistance to ensure a balanced diet and to follow any dietary restrictions Meal planning, shopping and cooking not recommended unless close supervision and assistance is provided 5) Safety and planning/initiating tasks Shower adaptive equipment: shower chair/bath bench, grab bars, and hand held shower head Remove unsteady furniture, small rugs and objects from floor Adjust hot water thermostat Supervise closely around stove or appliances Use appliances with automatic shut-off Keep medications and toxic chemicals out of reach Lock away all power tools and guns 6) Managing calendar/schedule Establish and help maintain and daily routine Use a large calendar in plain sight, with ongoing assistance for consistent use 7) Dressing, hygiene, and grooming Assistance remember all steps and setting up supplies Monitor frequency and quality of bathing Monitor frequency of changing clothes Place toiletries in the same location and in plain sight Verbal prompts to attend to details Reminders for weather appropriate clothing and to wear sunscreen 8) Laundry and cleaning Assistance to monitor frequency and quality Helpful learning strategies: Provide cues to assist with focusing on the present task Teach tasks using demonstration, verbal instruction, slow pace and repetition- one task at a time Practice safety routines and tasks frequency Assistance required to sequence steps of activities, particularly when novel Person may not be able to generalize learning across different environments, therefore assistance should be provided in new situations or environments Avoid giving directions over the phone or in writing Person may only recognize immediate or concrete consequences of actions and will require assistance for realistic planning and goal setting CPT Level 3.5-3.8 (?Cannot do things alone?) Moderate functional decline; unable to complete complex daily tasks, significant difficulty with self-care tasks. Attention span limited. Routine and structure are important. 24 Hour Supervision Required ? Memory Care, [facility] Facility, or home caregiver 12/05 Considerations: 1) Managing medications Caregiver assumes all responsibility for set-up and compliance Observe person as they swallow medications 2) Managing finances May require total supervision 3) Transportation and shopping No driving; transportation must be provided 4) Meal management Assistance to ensure a balanced diet and that fluids are taken in regularly Assistance to follow any dietary restrictions Prepare and place food in front of person and assist by cutting food and opening containers as necessary 5) Safety and planning/initiating tasks Shower adaptive equipment: shower chair/bath bench, grab bars, and hand held shower head Assist in and out of shower to prevent falls Barricade open stairwells and install [employer] Intercom systems, security doors and locks may prevent wandering and/or getting lost Remove unsteady furniture, small rugs and objects from floor Bathing and dressing from a seated position recommended to prevent falls Keep medications and toxic chemicals locked and out of reach Lock away all power tools and guns Supervise closely when near the stove 6) Managing calendar/schedule Establish and help to maintain a daily routine Use of a large calendar in plain sight, with ongoing assistance for consistent use 7) Dressing, hygiene, and grooming Prompt when time to wash or dress Prompt to wash hands and adjust clothing after toilet use Place toiletries in plain sight, as they may not look for objects Place clothing in plain sight and in the order to be put on Person may not ask for help or recognize the need for it 8) Laundry May require total or close supervision 9) Toileting Reminders to flush, complete hygiene, and wash hands 10) Feeding Food and utensil set-up Provide adaptive utensils if needed 11) Walking and transfers Provide verbal cues for correct positioning 12) Activity engagement Provide daily social opportunities and facilitate engagement Give limited choices Allow extra time for all activities due to slow pace Encourage daily activities providing range of motion/movement CPT Level 3.0-3.4 (?Severe decline?) Moderate to severe functional decline; unable to complete self-care tasks without assistance. Can handle and use objects but is unaware of task goals or outcomes. Resisting care may occur as the person is confused about the world around them. A consistent environment and routine are recommended. Communicate using clear and concise statements. 24 Hour Supervision Required ? Memory Care, [facility] Facility, or home caregiver 12/05 Recommendations: 1) Managing medications Caregiver assumes all responsibility for set-up and compliance Observe person as they swallow medication 2) Managing finances Requires total supervision 3) Transportation and shopping No driving; provide transportation as needed 4) Meal management Assistance to ensure a balanced diet and that fluids are taken in regularly and to follow any dietary restrictions Prepare and place food in front of person and assist by cutting food and opening containers as necessary Prevent spills by partially filling cup or using a lid/straw 5) Safety and planning/initiating tasks A safe environment with close monitoring is needed Shower adaptive equipment: shower chair/bath bench, grab bars, and hand-held shower head Assist in and out of shower to prevent falls Barricade open stairwells and install m[employer]man[employer] Intercom systems, security doors and locks may prevent wandering and/or getting lost Remove unsteady furniture, small rugs and objects from floor Bathing and dressing from a seated position recommended to prevent falls Keep medications and toxic chemicals locked and out of reach Lock away all power tools and guns Supervise closely when near the stove 6) Managing calendar/schedule Establish and help to maintain a daily routine Use of a large calendar in plain sight, with ongoing assistance for consistent use 7) Dressing, hygiene, grooming Prompt when time to wash or dress Prompt to wash hands and adjust clothing after toilet use Place toiletries in plain sight, as they may not look for objects Place clothing in plain sight and in the order to be put on Use verbal or [id number] 8) Laundry May require total or close supervision 9) Toileting Assist and cue to use toilet every two hours and also 30 minutes after meals Assist to manage incontinence Personal hygiene requires assistance 10) Feeding Food and utensil set-up Monitor for swallowing difficulty 11) Safe walking and transfers Remind and assist with all equipment required for safe ambulation (walker, cane, etc.) Proper positioning to improve posture and prevent sores For transfer safety and awareness: use count of three, verbal and physical cues 12) Activity engagement Encourage activities to prevent sitting for prolonged periods of time Give limited choices Allow extra time for all activities due to slow pace Encourage daily activities providing range of motion/movement CPT Level 2.4-2.9 (?Severe decline?) Severe functional decline; needs moderate to maximum assist to complete self-care tasks. Can handle and use objects but is unaware of task goals or outcomes. Resisting care may occur as the person is confused about the world around them. A consistent environment and routine are recommended. Communicate using clear and concise statements. 24 Hour Supervision Required ? Memory Care, [facility] Facility, or home caregiver 12/05 Recommendations: 1) Managing medications Caregiver assumes all responsibility for set-up and compliance Observe person as they swallow medication 2) Meal management/eating Assistance to ensure a balanced diet and that fluids are taken in regularly and to follow any dietary restrictions Prevent spills by partially filling cup or using a lid/straw Follow all swallowing precautions: positioning, texture of foods, cut foods into small pieces Use verbal and demonstrative cues to prompt to continue eating May require being fed all or most of meal Remove small non-edible items from reach Use a clothing protector or towel to prevent clothing from becoming dirty 3) Safety and planning/initiating tasks Provide a safe environment with close monitoring is needed Barricade open stairwells and install mcman[employer] Intercom systems, security doors and locks may prevent wandering and/or getting lost Remove unsteady furniture, small rugs and objects from floor Provide cues for barriers below the knee Keep medications and toxic chemicals locked and out of reach Lock away all power tools and guns 4) Bathing Verbally cue and/or use hand over hand assistance as needed Shower adaptive equipment: shower chair/bath bench, grab bars, and hand-held shower head Assist in and out of shower to prevent falls Shower in seated position to prevent falls 5) Dressing, hygiene, grooming Dress in seated position to prevent falls and possible fear of falling Cue to move body part/limb during dressing Use safe and comfortable footwear to prevent falls 6) Laundry May require total or close supervision 7) Toileting Assist and cue to use toilet every two hours and 30 minutes after meals Assist to manage incontinence Personal hygiene requires assistance 8) Feeding Food and utensil set-up Monitor for swallowing difficulty 9) Mobility and positioning Provide safe space to wander within range of visual supervision Remind and assist with all equipment required for safe ambulation (walker, cane, etc.) Proper positioning to improve posture and prevent sores For transfer safety and awareness: use count of three, verbal and physical cues for where to place hands and feet 10) Activity engagement Encourage activities to prevent sitting for prolonged periods of time Give limited choices Allow extra time for all activities due to slow pace Encourage daily activities providing range of motion/movement Performance Observations noted with ADLS: Prescriptions needed for the following items: Any other comments or concerns:
[2022-07-22 16:59] VITALS: TEMP 36.3; O2SAT 94
[2022-07-22] MEDS: DONEPEZIL 5 MG TABLET PO (19:43)
[2022-07-22] MEDS: MELATONIN 3 MG TABLET 5 MG PO (19:43)
--- NOTE | 2022-07-23 01:47 | PC.NURSE ---
Week #1---care plan problems #1-19 reviewed.No changes made.Temporary care plan, no changes made. Resident is receiving Acetaminophen 650mg PO TID PRN and Lidocaine patch 1 daily for pain management. She usually complaints of pain in the morning and is given syrup Tylenol PRN dose.? She is assist X 1 with her cares. Ambulates using wheel chair. Incontinent of bladder. Able to self feed however appetite is very poor
[2022-07-23 06:49] VITALS: TEMP 36.8; O2SAT 96
[2022-07-23] MEDS: LEVOTHYROXINE 50 MCG TABLET PO (07:15)
[2022-07-23] MEDS: OMEPRAZOLE 20 MG CAPSULE DR PO (07:15)
[2022-07-23] MEDS: LIDOCAINE 5% PATCH 1 PATCH TRANSDERMA (07:21)
[2022-07-23] MEDS: ASPIRIN 81 MG TABLET EC PO (07:21)
[2022-07-23] MEDS: SPIRIVA HANDIHALER INH (07:22)
[2022-07-23] MEDS: METOPROLOL SUCCINATE (XL) 25 MG TAB PO (07:22)
[2022-07-23] MEDS: SERTRALINE 100 MG TABLET PO (07:22)
--- NOTE | 2022-07-23 13:06 | REH.OTCOG ---
Cognitive Assessment Report [facility]: Occupational Therapy Department Patient: Amberly Darnell Date: 07/23/22 Tests Performed and Interpretations 1. [place] Cognitive Assessment (MoCA) Score: 07/19 26-30 = Normal cognition A score of less than 26 indicates need for further cognitive assessments 2. Safety and Problem-Solving Questionnaire Score: 3.5/17 A score of less than 15 indicates deficits with safety awareness and problem-solving 3. Cognitive Performance Test (CPT) Score: 3.6 Normal function = 5.6 CPT Interpretation: CPT Level 3.5-3.8 (?Cannot do things alone?) Moderate functional decline; unable to complete complex daily tasks, significant difficulty with self-care tasks. Attention span limited. Routine and structure are important. 24 Hour Supervision Required ? Memory Care, Longterm Facility, or home caregiver 12/05 Considerations: 1) Managing medications Caregiver assumes all responsibility for set-up and compliance Observe person as they swallow medications 2) Managing finances May require total supervision 3) Transportation and shopping No driving; transportation must be provided 4) Meal management Assistance to ensure a balanced diet and that fluids are taken in regularly Assistance to follow any dietary restrictions Prepare and place food in front of person and assist by cutting food and opening containers as necessary 5) Safety and planning/initiating tasks Shower adaptive equipment: shower chair/bath bench, grab bars, and hand held shower head Assist in and out of shower to prevent falls Barricade open stairwells and install mcmanus Intercom systems, security doors and locks may prevent wandering and/or getting lost Remove unsteady furniture, small rugs and objects from floor Bathing and dressing from a seated position recommended to prevent falls Keep medications and toxic chemicals locked and out of reach Lock away all power tools and guns Supervise closely when near the stove 6) Managing calendar/schedule Establish and help to maintain a daily routine Use of a large calendar in plain sight, with ongoing assistance for consistent use 7) Dressing, hygiene, and grooming Prompt when time to wash or dress Prompt to wash hands and adjust clothing after toilet use Place toiletries in plain sight, as they may not look for objects Place clothing in plain sight and in the order to be put on Person may not ask for help or recognize the need for it 8) Laundry May require total or close supervision 9) Toileting Reminders to flush, complete hygiene, and wash hands 10) Feeding Food and utensil set-up Provide adaptive utensils if needed 11) Walking and transfers Provide verbal cues for correct positioning 12) Activity engagement Provide daily social opportunities and facilitate engagement Give limited choices Allow extra time for all activities due to slow pace Encourage daily activities providing range of motion/movement Performance Observations noted with ADLS: Amberly continues to demonstrate the need for staff assistance for safe management of self cares, functional transfers and functional mobility using a 4 wheeled walker and manual wheelchair due to weakness, limited ROM, impaired balance and cognitive deficits. Amberly has difficulty with transitional movements and frequently verbalizes a fear of falling with a history of repeated falls. She required min Assist for UB self cares and max Assist for LB self cares including toileting and clothing management. The level of assistance with transfers during ADLs fluctuates from SBA to mod A and at times she needs repetitive attempts and cues for safety awareness. Amberly needs cues and encouragement and to initiate and increase her activity level. She requires assistance for all home management tasks and IADLS. Due to physical deficits in combination with cognitive deficits noted, Amberly needs a setting with 24 hour assistance available for safe management of ADLS and mobility, recommending SNF setting.
[2022-07-23 13:18] VITALS: TEMP 36.3; O2SAT 94
[2022-07-23 13:34] VITALS: BMI 21.7
[2022-07-23 15:00] VITALS: TEMP 37.1; O2SAT 94
[2022-07-23] MEDS: MELATONIN 3 MG TABLET 5 MG PO (19:24)
[2022-07-23] MEDS: DONEPEZIL 5 MG TABLET PO (19:24)
[2022-07-23] MEDS: LORazepam 0.5 MG TABLET PO (19:53)
--- NOTE | 2022-07-23 20:30 | PC.NURSE ---
Week #1: Admission/Readmission Baseline Care Plan , and vital signs reviewed - no significant changes made to care plan and nothing added at this time. Pain is managed with Acetaminophen 650mg PO TID PRN, Aspirin 81 mg daily, and daily Lidocaine patch application to lower back. Additionally, implementation of non pharmacological interventions including heat, ice, and positioning seem to promote relief from pain; thus, pain does not impact resident's quality of life or causes anxiety. ADLs: Resident is assist of 1 with all ADLs. Ambulates using wheel chair, or 4WW depending on her strength per the moment. With encouragements and clues resident is able to feed self - but does not eat much.
[2022-07-24 01:31] VITALS: TEMP 36.4; O2SAT 95
[2022-07-24] MEDS: RISEDRONATE 35 MG PO (07:00)
[2022-07-24] MEDS: OMEPRAZOLE 20 MG CAPSULE DR PO (07:31)
[2022-07-24] MEDS: LIDOCAINE 5% PATCH 1 PATCH TRANSDERMA (07:31)
[2022-07-24] MEDS: LEVOTHYROXINE 50 MCG TABLET PO (07:31)
[2022-07-24] MEDS: ASPIRIN 81 MG TABLET EC PO (07:31)
[2022-07-24] MEDS: METOPROLOL SUCCINATE (XL) 25 MG TAB PO (07:32)
[2022-07-24] MEDS: SERTRALINE 100 MG TABLET PO (07:32)
[2022-07-24] MEDS: SPIRIVA HANDIHALER INH (07:32)
[2022-07-24] MEDS: ACETAMINOPHEN 325 MG TABLET 650 MG PO (10:00)
[2022-07-24 11:56] VITALS: TEMP 36.7; O2SAT 93
[2022-07-24 15:00] VITALS: TEMP 36.8; O2SAT 91
[2022-07-24] MEDS: MELATONIN 3 MG TABLET 5 MG PO (19:11)
[2022-07-24] MEDS: DONEPEZIL 5 MG TABLET PO (19:11)
[2022-07-25 02:40] VITALS: TEMP 36.3; O2SAT 92
[2022-07-25] MEDS: OMEPRAZOLE 20 MG CAPSULE DR PO (06:57)
[2022-07-25] MEDS: LEVOTHYROXINE 50 MCG TABLET PO (06:57)
[2022-07-25] MEDS: SERTRALINE 100 MG TABLET PO (08:25)
[2022-07-25] MEDS: METOPROLOL SUCCINATE (XL) 25 MG TAB PO (08:25)
[2022-07-25] MEDS: LIDOCAINE 5% PATCH 1 PATCH TRANSDERMA (08:25)
[2022-07-25] MEDS: ASPIRIN 81 MG TABLET EC PO (08:25)
[2022-07-25] MEDS: ACETAMINOPHEN 325 MG TABLET 650 MG PO ×2 (08:25→19:21)
[2022-07-25] MEDS: SPIRIVA HANDIHALER INH (08:25)
[2022-07-25 10:35] VITALS: TEMP 36.7; O2SAT 94
--- NOTE | 2022-07-25 12:29 | PC.NURSE ---
Status/Order: [employer] here. Updated resident refused Tylenol liquid, prefers the tablet. Per therapist daughter wants scheduled Tylenol. Order: d/c Tylenol liquid TID PRN, Tylenol 650mg BID.
[2022-07-25 15:00] VITALS: TEMP 36.6; O2SAT 94
[2022-07-25] MEDS: MELATONIN 3 MG TABLET 5 MG PO (19:21)
[2022-07-25] MEDS: DONEPEZIL 5 MG TABLET PO (19:21)
--- NOTE | 2022-07-25 21:19 | PC.NURSE ---
Resident's mepilex covering coccyx wound was soiled and changed this evening. Resident tolerated well. Denies any pain or discomfort. Was given scheduled medications this evening. Took Donepezil and Melatonin whole with no issues. Resident did have gagging episode on the two tablets of Tylenol 650mg but did swallow them. Manager [employer] asked if resident had difficulting swallowing, but stated no. Will continue to monitor medical superintendent.
[2022-07-26 02:24] VITALS: TEMP 36.3; O2SAT 93
[2022-07-26] MEDS: LEVOTHYROXINE 50 MCG TABLET PO (07:17)
[2022-07-26] MEDS: OMEPRAZOLE 20 MG CAPSULE DR PO (07:17)
[2022-07-26] MEDS: SPIRIVA HANDIHALER INH (08:26)
[2022-07-26] MEDS: ASPIRIN 81 MG TABLET EC PO (08:26)
[2022-07-26] MEDS: METOPROLOL SUCCINATE (XL) 25 MG TAB PO (08:26)
[2022-07-26] MEDS: ACETAMINOPHEN 325 MG TABLET 650 MG PO ×2 (08:26→16:27)
[2022-07-26] MEDS: LIDOCAINE 5% PATCH 1 PATCH TRANSDERMA (08:26)
[2022-07-26] MEDS: SERTRALINE 100 MG TABLET PO (08:27)
[2022-07-26 10:13] VITALS: TEMP 36.7; O2SAT 94
[2022-07-26 15:00] VITALS: TEMP 36.7; O2SAT 93
[2022-07-26] MEDS: MELATONIN 3 MG TABLET 5 MG PO (19:27)
[2022-07-26] MEDS: LORazepam 0.5 MG TABLET PO (19:27)
[2022-07-26] MEDS: DONEPEZIL 5 MG TABLET PO (19:29)
[2022-07-27 02:51] VITALS: TEMP 36.4; O2SAT 96
[2022-07-27 07:00] VITALS: TEMP 36.2; O2SAT 96
[2022-07-27] MEDS: OMEPRAZOLE 20 MG CAPSULE DR PO (07:12)
[2022-07-27] MEDS: LEVOTHYROXINE 50 MCG TABLET PO (07:12)
[2022-07-27] MEDS: LIDOCAINE 5% PATCH 1 PATCH TRANSDERMA (07:17)
[2022-07-27] MEDS: METOPROLOL SUCCINATE (XL) 25 MG TAB PO (08:45)
[2022-07-27] MEDS: SPIRIVA HANDIHALER INH (08:45)
[2022-07-27] MEDS: ACETAMINOPHEN 325 MG TABLET 650 MG PO ×2 (08:45→15:29)
[2022-07-27] MEDS: ASPIRIN 81 MG TABLET EC PO (08:45)
[2022-07-27] MEDS: SERTRALINE 100 MG TABLET PO (09:05)
[2022-07-27 12:03] VITALS: TEMP 36.2; O2SAT 96
[2022-07-27] MEDS: DONEPEZIL 5 MG TABLET PO (19:11)
[2022-07-27] MEDS: MELATONIN 3 MG TABLET 5 MG PO (19:11)
[2022-07-27 23:00] VITALS: TEMP 36.8; O2SAT 93
[2022-07-28 07:00] VITALS: TEMP 36.5; O2SAT 94
[2022-07-28] MEDS: LEVOTHYROXINE 50 MCG TABLET PO (07:19)
[2022-07-28] MEDS: OMEPRAZOLE 20 MG CAPSULE DR PO (07:19)
[2022-07-28] MEDS: METOPROLOL SUCCINATE (XL) 25 MG TAB PO (07:20)
[2022-07-28] MEDS: ASPIRIN 81 MG TABLET EC PO (07:20)
[2022-07-28] MEDS: LIDOCAINE 5% PATCH 1 PATCH TRANSDERMA (07:20)
[2022-07-28] MEDS: ACETAMINOPHEN 325 MG TABLET 650 MG PO ×2 (07:20→15:38)
[2022-07-28] MEDS: SPIRIVA HANDIHALER INH (07:20)
[2022-07-28] MEDS: SERTRALINE 100 MG TABLET PO (07:20)
[2022-07-28 13:15] VITALS: TEMP 36.5; O2SAT 94
[2022-07-28] MEDS: MELATONIN 3 MG TABLET 5 MG PO (19:27)
[2022-07-28] MEDS: DONEPEZIL 5 MG TABLET PO (19:27)
[2022-07-28 23:00] VITALS: TEMP 36.1; O2SAT 95
[2022-07-29] MEDS: LORazepam 0.5 MG TABLET PO (02:45)
[2022-07-29] MEDS: LEVOTHYROXINE 50 MCG TABLET PO (07:05)
[2022-07-29] MEDS: OMEPRAZOLE 20 MG CAPSULE DR PO (07:05)
[2022-07-29] MEDS: ASPIRIN 81 MG TABLET EC PO (08:23)
[2022-07-29] MEDS: ACETAMINOPHEN 325 MG TABLET 650 MG PO ×2 (08:23→16:11)
[2022-07-29] MEDS: LIDOCAINE 5% PATCH 1 PATCH TRANSDERMA (08:24)
[2022-07-29] MEDS: METOPROLOL SUCCINATE (XL) 25 MG TAB PO (08:24)
[2022-07-29] MEDS: SPIRIVA HANDIHALER INH (08:24)
[2022-07-29] MEDS: SERTRALINE 100 MG TABLET PO (08:29)
[2022-07-29 10:53] VITALS: TEMP 36.4; O2SAT 94
--- NOTE | 2022-07-29 11:24 | PC.NURSE ---
Daughter, Alison stopped in to tell us that resident will be staying here keno terminal operator, they have given up her apartment at the [facility].
[2022-07-29 12:51] LABS: SARS PCR* Negative SARS-CoV-2 (Negative)
--- NOTE | 2022-07-29 16:01 | PC.NURSE ---
COVID OUTBREAK TESTING: Residents daughter provided verbal consent for outbreak COVID testing. Resident is currently asymptomatic. Resident/family will be notified only if resident is positive.
[2022-07-29 17:04] VITALS: TEMP 36.3; O2SAT 95
[2022-07-29] MEDS: DONEPEZIL 5 MG TABLET PO (19:25)
[2022-07-29] MEDS: MELATONIN 3 MG TABLET 5 MG PO (19:25)
--- NOTE | 2022-07-30 01:10 | PC.NURSE ---
Week #2: Resident has a
--- NOTE | 2022-07-30 01:11 | PC.NURSE ---
Week #1: Resident is not noted as a fall risk. Is on hourly visual safety checks. Temporary care plan reviewed, no change. Resident is one assist with bed mobility, will help turning left and right in bed, and transfers in and out of bed with medi stand.
[2022-07-30 02:34] VITALS: TEMP 36.5; O2SAT 92
[2022-07-30] MEDS: LEVOTHYROXINE 50 MCG TABLET PO (07:25)
[2022-07-30] MEDS: OMEPRAZOLE 20 MG CAPSULE DR PO (07:25)
[2022-07-30] MEDS: ACETAMINOPHEN 325 MG TABLET 650 MG PO ×2 (08:27→15:42)
[2022-07-30] MEDS: ASPIRIN 81 MG TABLET EC PO (08:28)
[2022-07-30] MEDS: SPIRIVA HANDIHALER INH (08:28)
[2022-07-30] MEDS: LIDOCAINE 5% PATCH 1 PATCH TRANSDERMA (08:28)
[2022-07-30] MEDS: METOPROLOL SUCCINATE (XL) 25 MG TAB PO (08:28)
[2022-07-30] MEDS: SERTRALINE 100 MG TABLET PO (08:29)
[2022-07-30 10:10] VITALS: TEMP 36.8; O2SAT 95
--- NOTE | 2022-07-30 10:43 | PC.NURSE ---
Weekly #2: Vital signs reviewed with no issues Resident is not a fall risk and has had no falls in past month Temporary care plan reviewed Resident is assist of 1 with bed mobility, wheelchair positioning, transfers (uses medi-stand when tired), ambulation and wheeling
--- NOTE | 2022-07-30 11:18 | PC.SPIRITC ---
Non Food Receiving Clerk provided visit for support and connection.
--- NOTE | 2022-07-30 12:36 | PC.NURSE ---
Coccyx Wound Treatment: D/C Laurenhovincent, Cleanse with wound cleanser, apply Mepilex, Change EOD or PRN.
[2022-07-30 16:21] VITALS: TEMP 36.4; O2SAT 95
[2022-07-30] MEDS: MELATONIN 3 MG TABLET 5 MG PO (19:09)
[2022-07-30] MEDS: DONEPEZIL 5 MG TABLET PO (19:09)
[2022-07-31 02:25] VITALS: TEMP 36.5; O2SAT 90
[2022-07-31] MEDS: RISEDRONATE 35 MG PO (08:31)
[2022-07-31] MEDS: ACETAMINOPHEN 325 MG TABLET 650 MG PO ×2 (08:32→15:57)
[2022-07-31] MEDS: OMEPRAZOLE 20 MG CAPSULE DR PO (08:32)
[2022-07-31] MEDS: LEVOTHYROXINE 50 MCG TABLET PO (08:32)
[2022-07-31] MEDS: METOPROLOL SUCCINATE (XL) 25 MG TAB PO (08:33)
[2022-07-31] MEDS: LIDOCAINE 5% PATCH 1 PATCH TRANSDERMA (08:33)
[2022-07-31] MEDS: ASPIRIN 81 MG TABLET EC PO (08:33)
[2022-07-31] MEDS: SPIRIVA HANDIHALER INH (08:33)
[2022-07-31] MEDS: SERTRALINE 100 MG TABLET PO (08:34)
[2022-07-31 10:43] VITALS: TEMP 36.6; O2SAT 93
[2022-07-31 15:00] VITALS: TEMP 36.8; O2SAT 93
[2022-07-31] MEDS: DONEPEZIL 5 MG TABLET PO (19:37)
[2022-07-31] MEDS: MELATONIN 3 MG TABLET 5 MG PO (19:37)
[2022-07-31 23:00] VITALS: TEMP 36.3; O2SAT 100
[2022-08-01] MEDS: ACETAMINOPHEN 325 MG TABLET 650 MG PO ×2 (07:38→15:45)
[2022-08-01] MEDS: LEVOTHYROXINE 50 MCG TABLET PO (07:38)
[2022-08-01] MEDS: OMEPRAZOLE 20 MG CAPSULE DR PO (07:38)
[2022-08-01] MEDS: ASPIRIN 81 MG TABLET EC PO (07:38)
[2022-08-01] MEDS: LIDOCAINE 5% PATCH 1 PATCH TRANSDERMA (07:38)
[2022-08-01] MEDS: METOPROLOL SUCCINATE (XL) 25 MG TAB PO (07:39)
[2022-08-01] MEDS: SERTRALINE 100 MG TABLET PO (07:39)
[2022-08-01] MEDS: SPIRIVA HANDIHALER INH (07:39)
[2022-08-01 12:38] VITALS: TEMP 36.2; O2SAT 95
[2022-08-01 14:17] VITALS: BP 124/70; PULSE 62; RESP 20; TEMP 36.2; O2SAT 95
[2022-08-01 14:25] VITALS: BMI 21.9
[2022-08-01 15:00] VITALS: TEMP 36.3; O2SAT 95
[2022-08-01] MEDS: LORazepam 0.5 MG TABLET PO (18:59)
[2022-08-01] MEDS: MELATONIN 3 MG TABLET 5 MG PO (19:00)
[2022-08-01] MEDS: DONEPEZIL 5 MG TABLET PO (19:00)
[2022-08-01 23:00] VITALS: TEMP 36.3; O2SAT 95
[2022-08-02] MEDS: OMEPRAZOLE 20 MG CAPSULE DR PO (07:56)
[2022-08-02] MEDS: LEVOTHYROXINE 50 MCG TABLET PO (07:57)
[2022-08-02] MEDS: ACETAMINOPHEN 325 MG TABLET 650 MG PO ×2 (08:57→15:34)
[2022-08-02] MEDS: SPIRIVA HANDIHALER INH (08:58)
[2022-08-02] MEDS: ASPIRIN 81 MG TABLET EC PO (08:58)
[2022-08-02] MEDS: METOPROLOL SUCCINATE (XL) 25 MG TAB PO (08:58)
[2022-08-02] MEDS: LIDOCAINE 5% PATCH 1 PATCH TRANSDERMA (08:58)
[2022-08-02] MEDS: SERTRALINE 100 MG TABLET PO (08:59)
[2022-08-02 10:56] VITALS: TEMP 36.4; O2SAT 96
--- NOTE | 2022-08-02 12:53 | PC.NURSE ---
Recert Visit: Resident seen by Dr. Pierce. Orders reviewed and renewed for 45 days with no changes.
[2022-08-02 15:00] VITALS: TEMP 36.7; O2SAT 92
[2022-08-02] MEDS: MELATONIN 3 MG TABLET 5 MG PO (19:59)
[2022-08-02] MEDS: DONEPEZIL 5 MG TABLET PO (19:59)
[2022-08-02 23:00] VITALS: TEMP 36.6; O2SAT 90
[2022-08-03] MEDS: OMEPRAZOLE 20 MG CAPSULE DR PO (07:18)
[2022-08-03] MEDS: LEVOTHYROXINE 50 MCG TABLET PO (07:18)
[2022-08-03] MEDS: LIDOCAINE 5% PATCH 1 PATCH TRANSDERMA (08:47)
[2022-08-03] MEDS: SPIRIVA HANDIHALER INH (08:47)
[2022-08-03] MEDS: METOPROLOL SUCCINATE (XL) 25 MG TAB PO (08:47)
[2022-08-03] MEDS: ACETAMINOPHEN 325 MG TABLET 650 MG PO ×2 (08:47→15:59)
[2022-08-03] MEDS: ASPIRIN 81 MG TABLET EC PO (08:47)
[2022-08-03] MEDS: SERTRALINE 100 MG TABLET PO (08:48)
[2022-08-03 10:47] VITALS: TEMP 36.6; O2SAT 94
--- NOTE | 2022-08-03 13:03 | PC.NURSE ---
Status: Resident was given her AM medications but spit most of them out shortly after giving them. They were crushed so unknown what she received. Resident stated they tasted horrible Resident then throughout day shift stated she felt sick and dizzy. Vitals: T97.5, O2 93% on RA, P81, B/P 156/78, R18. This conventional underwriter explained to resident the importance of taking her medications so she does not feel ill, resident stated Well, I feel a hell of a lot better then when I took those pills!
[2022-08-03 15:00] VITALS: TEMP 36.8; O2SAT 95
[2022-08-03] MEDS: MELATONIN 3 MG TABLET 5 MG PO (19:58)
[2022-08-03] MEDS: DONEPEZIL 5 MG TABLET PO (19:58)
--- NOTE | 2022-08-03 21:57 | PC.NURSE ---
Resident had no issues with taking medications this shift. Took 1600 tylenol whole and one at a time. Did state they taste horrid. Took HS medications whole and one a time with no difficulties. No c/o pain or discomfort.
[2022-08-03] MEDS: LORazepam 0.5 MG TABLET PO (22:45)
[2022-08-04 01:34] VITALS: TEMP 36.3; O2SAT 92
[2022-08-04] MEDS: LEVOTHYROXINE 50 MCG TABLET PO (07:26)
[2022-08-04] MEDS: OMEPRAZOLE 20 MG CAPSULE DR PO (07:26)
[2022-08-04] MEDS: LIDOCAINE 5% PATCH 1 PATCH TRANSDERMA (08:28)
[2022-08-04] MEDS: ACETAMINOPHEN 325 MG TABLET 650 MG PO ×2 (08:28→15:36)
[2022-08-04] MEDS: ASPIRIN 81 MG TABLET EC PO (08:28)
[2022-08-04] MEDS: SERTRALINE 100 MG TABLET PO (08:28)
[2022-08-04] MEDS: METOPROLOL SUCCINATE (XL) 25 MG TAB PO (08:28)
[2022-08-04] MEDS: SPIRIVA HANDIHALER INH (08:28)
[2022-08-04 10:42] VITALS: TEMP 36.4; O2SAT 98
[2022-08-04 15:00] VITALS: TEMP 37.1; O2SAT 94
[2022-08-04] MEDS: MELATONIN 3 MG TABLET 5 MG PO (19:21)
[2022-08-04] MEDS: DONEPEZIL 5 MG TABLET PO (19:21)
[2022-08-04 23:00] VITALS: TEMP 36.1; O2SAT 91
[2022-08-05] MEDS: LEVOTHYROXINE 50 MCG TABLET PO (07:20)
[2022-08-05] MEDS: OMEPRAZOLE 20 MG CAPSULE DR PO (07:20)
[2022-08-05] MEDS: ACETAMINOPHEN 325 MG TABLET 650 MG PO ×2 (08:19→15:50)
[2022-08-05] MEDS: ASPIRIN 81 MG TABLET EC PO (08:19)
[2022-08-05] MEDS: SPIRIVA HANDIHALER INH (08:20)
[2022-08-05] MEDS: LIDOCAINE 5% PATCH 1 PATCH TRANSDERMA (08:20)
[2022-08-05] MEDS: METOPROLOL SUCCINATE (XL) 25 MG TAB PO (08:20)
[2022-08-05] MEDS: SERTRALINE 100 MG TABLET PO (08:21)
[2022-08-05 10:14] VITALS: TEMP 36.4; O2SAT 94
--- NOTE | 2022-08-05 13:50 | PC.NURSE ---
COVID OUTBREAK TESTING: Residents daughter provided verbal consent for outbreak COVID testing. Resident is currently asymptomatic. Resident/family will be notified only if resident is positive.
--- NOTE | 2022-08-05 14:45 | REH.OT ---
Hot liquid assessment; Patient should consume hot liquids at a table with staff supervision due to both cognitive and physical impairments.
[2022-08-05 16:22] VITALS: TEMP 36.4; O2SAT 95
[2022-08-05 16:44] LABS: SARS PCR* Negative SARS-CoV-2 (Negative)
[2022-08-05] MEDS: DONEPEZIL 5 MG TABLET PO (19:58)
[2022-08-05] MEDS: MELATONIN 3 MG TABLET 5 MG PO (19:58)
[2022-08-06 00:17] VITALS: TEMP 36.6; O2SAT 95
--- NOTE | 2022-08-06 01:05 | PC.NURSE ---
Week #3:Care plan 30 - 39 reviewed, no change.Temporary care plan reviewed, no sexton Resident is incontinent of bowel and bladder. She is of 1 assist using Medi stand. Skin : Resident has a wound on her coccyx which is clean using wound shoe cleaner and Mepilex dressing to change EOD or PRN.
[2022-08-06] MEDS: OMEPRAZOLE 20 MG CAPSULE DR PO (07:16)
[2022-08-06] MEDS: LEVOTHYROXINE 50 MCG TABLET PO (07:16)
[2022-08-06] MEDS: ASPIRIN 81 MG TABLET EC PO (07:17)
[2022-08-06] MEDS: METOPROLOL SUCCINATE (XL) 25 MG TAB PO (07:17)
[2022-08-06] MEDS: ACETAMINOPHEN 325 MG TABLET 650 MG PO ×2 (07:17→16:30)
[2022-08-06] MEDS: LIDOCAINE 5% PATCH 1 PATCH TRANSDERMA (07:17)
[2022-08-06] MEDS: SPIRIVA HANDIHALER INH (07:18)
[2022-08-06] MEDS: SERTRALINE 100 MG TABLET PO (07:18)
[2022-08-06 10:27] VITALS: TEMP 36.1; O2SAT 94
[2022-08-06 15:00] VITALS: TEMP 36.7; O2SAT 94
[2022-08-06] MEDS: DONEPEZIL 5 MG TABLET PO (20:19)
[2022-08-06] MEDS: MELATONIN 3 MG TABLET 5 MG PO (20:19)
--- NOTE | 2022-08-06 21:46 | PC.NURSE ---
Week #3: Care plan problems 30-39 reviewed. No changes made, and nothing added to temporary care plan. Resident is incontinent of bowel and bladder. Staff toilets every 2 hours and per resident request. Transferred with the assist of 1 assist using Medi stand. Pericares, pad and clothing managed by staff. Skin: Resident has a wound on her coccyx. Orders to clean wound using wound railroad car cleaner and apply Mepilex dressing.
[2022-08-06] MEDS: LORazepam 0.5 MG TABLET PO (23:31)
[2022-08-07 00:49] VITALS: TEMP 36.4; O2SAT 95
--- NOTE | 2022-08-07 03:12 | PC.NURSE ---
Resident was very restless at 2320 requesting to go home and asked to put her on her wheel chair. Coconut Boiler tried to redirect but resident refused to listen. She was given PRN dose of Ativan 0.5mg at 2331 with good results.
[2022-08-07] MEDS: ACETAMINOPHEN 325 MG TABLET 650 MG PO ×2 (07:24→15:24)
[2022-08-07] MEDS: LEVOTHYROXINE 50 MCG TABLET PO (07:24)
[2022-08-07] MEDS: OMEPRAZOLE 20 MG CAPSULE DR PO (07:24)
[2022-08-07] MEDS: SERTRALINE 100 MG TABLET PO (07:25)
[2022-08-07] MEDS: LIDOCAINE 5% PATCH 1 PATCH TRANSDERMA (07:25)
[2022-08-07] MEDS: SPIRIVA HANDIHALER INH (07:25)
[2022-08-07] MEDS: ASPIRIN 81 MG TABLET EC PO (07:25)
[2022-08-07] MEDS: METOPROLOL SUCCINATE (XL) 25 MG TAB PO (07:25)
[2022-08-07] MEDS: RISEDRONATE 35 MG PO (07:43)
[2022-08-07 10:23] VITALS: TEMP 36.1; O2SAT 92
[2022-08-07 14:12] VITALS: BMI 21.9
--- NOTE | 2022-08-07 14:18 | PC.PHA ---
Pharmacy Review~Patient admitted in June and continues on similar medication regimen that she took at home. Lorazepam 0.5 mg po hs prn was prescribed pre-admission and she does not need every night. She does take melatonin 5 mg scheduled at hs but nothing else for sleep. Could consider trazodone trial in place of lorazepam for sleep, Renal Dosing for Oseltamivir: Treatment:30 mg po BID for 5 days Prophylaxis:30 mg po Daily for 14 days or longer (see policy).
[2022-08-07] MEDS: DONEPEZIL 5 MG TABLET PO (19:50)
[2022-08-07] MEDS: MELATONIN 3 MG TABLET 5 MG PO (19:50)
[2022-08-08] MEDS: ACETAMINOPHEN 325 MG TABLET 650 MG PO ×2 (07:41→15:21)
[2022-08-08] MEDS: OMEPRAZOLE 20 MG CAPSULE DR PO (07:41)
[2022-08-08] MEDS: LEVOTHYROXINE 50 MCG TABLET PO (07:41)
[2022-08-08] MEDS: SERTRALINE 100 MG TABLET PO (07:42)
[2022-08-08] MEDS: ASPIRIN 81 MG TABLET EC PO (07:42)
[2022-08-08] MEDS: LIDOCAINE 5% PATCH 1 PATCH TRANSDERMA (07:42)
[2022-08-08] MEDS: SPIRIVA HANDIHALER INH (07:42)
[2022-08-08] MEDS: METOPROLOL SUCCINATE (XL) 25 MG TAB PO (07:42)
[2022-08-08 10:10] VITALS: BP 136/76; PULSE 64; RESP 18; TEMP 36.4; O2SAT 94
[2022-08-08 13:09] VITALS: BMI 21.7
[2022-08-08] MEDS: MELATONIN 3 MG TABLET 5 MG PO (20:09)
[2022-08-08] MEDS: DONEPEZIL 5 MG TABLET PO (20:09)
[2022-08-09] MEDS: LEVOTHYROXINE 50 MCG TABLET PO (07:25)
[2022-08-09] MEDS: METOPROLOL SUCCINATE (XL) 25 MG TAB PO (07:25)
[2022-08-09] MEDS: ASPIRIN 81 MG TABLET EC PO (07:25)
[2022-08-09] MEDS: SPIRIVA HANDIHALER INH (07:25)
[2022-08-09] MEDS: ACETAMINOPHEN 325 MG TABLET 650 MG PO ×2 (07:25→15:50)
[2022-08-09] MEDS: OMEPRAZOLE 20 MG CAPSULE DR PO (07:25)
[2022-08-09] MEDS: LIDOCAINE 5% PATCH 1 PATCH TRANSDERMA (07:25)
[2022-08-09] MEDS: SERTRALINE 100 MG TABLET PO (07:26)
--- NOTE | 2022-08-09 10:39 | PC.NURSE ---
RBVO: DC lidocaine patch. No longer needed/effective. Per Genesis Cain NP.
[2022-08-09] MEDS: MELATONIN 3 MG TABLET 5 MG PO (19:10)
[2022-08-09] MEDS: DONEPEZIL 5 MG TABLET PO (19:10)
[2022-08-10] MEDS: SERTRALINE 100 MG TABLET PO (07:05)
[2022-08-10] MEDS: ACETAMINOPHEN 325 MG TABLET 650 MG PO ×2 (07:05→15:37)
[2022-08-10] MEDS: OMEPRAZOLE 20 MG CAPSULE DR PO (07:05)
[2022-08-10] MEDS: ASPIRIN 81 MG TABLET EC PO (07:05)
[2022-08-10] MEDS: LEVOTHYROXINE 50 MCG TABLET PO (07:05)
[2022-08-10] MEDS: METOPROLOL SUCCINATE (XL) 25 MG TAB PO (07:05)
[2022-08-10] MEDS: SPIRIVA HANDIHALER INH (07:05)
[2022-08-10] MEDS: MELATONIN 3 MG TABLET 5 MG PO (19:25)
[2022-08-10] MEDS: DONEPEZIL 5 MG TABLET PO (19:25)
[2022-08-11] MEDS: OMEPRAZOLE 20 MG CAPSULE DR PO (07:30)
[2022-08-11] MEDS: SPIRIVA HANDIHALER INH (07:30)
[2022-08-11] MEDS: ACETAMINOPHEN 325 MG TABLET 650 MG PO ×2 (07:30→15:17)
[2022-08-11] MEDS: METOPROLOL SUCCINATE (XL) 25 MG TAB PO (07:30)
[2022-08-11] MEDS: LEVOTHYROXINE 50 MCG TABLET PO (07:30)
[2022-08-11] MEDS: ASPIRIN 81 MG TABLET EC PO (07:30)
[2022-08-11] MEDS: SERTRALINE 100 MG TABLET PO (07:31)
[2022-08-11] MEDS: DONEPEZIL 5 MG TABLET PO (21:07)
[2022-08-11] MEDS: MELATONIN 3 MG TABLET 5 MG PO (21:07)
--- NOTE | 2022-08-12 04:46 | PC.NURSE ---
Has been restless throughout the night. Frequent calling out. I don't know who I am, I don't know where I am. Please help. Staff have attempted to redirect and provide reassurance without success. Has only slept for short periods this shift.
[2022-08-12] MEDS: OMEPRAZOLE 20 MG CAPSULE DR PO (07:21)
[2022-08-12] MEDS: LEVOTHYROXINE 50 MCG TABLET PO (07:22)
[2022-08-12] MEDS: ACETAMINOPHEN 325 MG TABLET 650 MG PO ×2 (08:22→15:06)
[2022-08-12] MEDS: ASPIRIN 81 MG TABLET EC PO (08:23)
[2022-08-12] MEDS: METOPROLOL SUCCINATE (XL) 25 MG TAB PO (08:23)
[2022-08-12] MEDS: SPIRIVA HANDIHALER INH (08:23)
[2022-08-12] MEDS: SERTRALINE 100 MG TABLET PO (08:23)
[2022-08-12] MEDS: DONEPEZIL 5 MG TABLET PO (19:23)
[2022-08-12] MEDS: MELATONIN 3 MG TABLET 5 MG PO (19:23)
[2022-08-12] MEDS: LORazepam 0.5 MG TABLET PO (23:07)
--- NOTE | 2022-08-13 01:12 | PC.NURSE ---
Week #4: No changes in mood or behavior. Receives sertraline 100mg daily and melatonin 5mg at HS. Order for lorazepam 0.5mg at HS PRN has been utilized x9 in last month for general restlessness and constant call for help/attention and has been effective. No noted adverse effects. Care plan/temporary care plan reviewed with no changes. No changes in communication, hearing, vision, or orientation. Is able to communicate needs. No change to chronic health conditions. Lidocaine patch was discontinued 08/09/22. Staff administer medications.
--- NOTE | 2022-08-13 06:41 | PC.NURSE ---
Week #4: Baseline care plan reviewed. No changes made. Nothing added to temporary care plan. Resident is alert, forgetful. Wears glasses. Is hard of hearing. Has bilateral hearing aids.Does communicate needs and use the call light. Health condition stable. Does not self administer medications. Mood/Behavior: Has several episodes of calling out for help/attention. 1:1 visit is effective. Has an order for Ativan 0.5mg QHS PRN, has used occasionally and is effective. Continues on Zoloft 100mg daily, Melatonin 5mg @ HS. No change with these medications, no adverse effects noted. Staff to continue monitor changes in mood/behavior.
[2022-08-13] MEDS: OMEPRAZOLE 20 MG CAPSULE DR PO (08:00)
[2022-08-13] MEDS: LEVOTHYROXINE 50 MCG TABLET PO (08:00)
[2022-08-13] MEDS: ACETAMINOPHEN 325 MG TABLET 650 MG PO ×2 (08:04→16:17)
[2022-08-13] MEDS: METOPROLOL SUCCINATE (XL) 25 MG TAB PO (08:06)
[2022-08-13] MEDS: SPIRIVA HANDIHALER INH (08:06)
[2022-08-13] MEDS: ASPIRIN 81 MG TABLET EC PO (08:06)
[2022-08-13] MEDS: SERTRALINE 100 MG TABLET PO (08:07)
--- NOTE | 2022-08-13 11:02 | PC.NURSE ---
MDS Clarification: Reviewed MDS ADL charting for JULIAN of 08/08/22 due to coming off PT/OT. Resident charted for eating as independent with no set up. After speaking with staff changed to supervision with set up needed. Bath was given during JULIAN period. Physical assist needed with part of bathing. 1 assist. Pressure injury charted on 08/08 is not a pressure 2 it is a pressure 3 per INSTRUCTIONAL TECHNOLOGY COACH Genesis Cain. Charted as such MDS.
--- NOTE | 2022-08-13 15:00 | PC.NURSE ---
MDS clarification: Reviewed MDS ADL charting for JULIAN 08/13, noted to have inconsistent charting. Interviewed NARs and determined that errors were made. Changes reviewed and coded as such in MDS.
[2022-08-13] MEDS: DONEPEZIL 5 MG TABLET PO (19:34)
[2022-08-13] MEDS: MELATONIN 3 MG TABLET 5 MG PO (19:34)
--- NOTE | 2022-08-13 21:34 | PC.NURSE ---
Resident c/o constipation, difficulty passing stool, feeling full and bloated. Documented moderate sized BM this afternoon and evening. Reported feeling little bit better after evening BM but still uncomfortable. Ref MOM or any intervention. H20 encouraged. Resting in bed at time of note.
[2022-08-13] MEDS: LORazepam 0.5 MG TABLET PO (23:13)
--- NOTE | 2022-08-14 05:39 | PC.NURSE ---
Behavior: PRN lorazepam administered at 2313 for constant calling out for help and attention. Interventions including toileting, 1:1, snack, and TV attempted without success. After PRN administration, resident slept for approximately 1 hour. Has been awake and calling out throughout the night. All interventions attempted have been unsuccessful. Frequently checking on resident for safety.
[2022-08-14] MEDS: LEVOTHYROXINE 50 MCG TABLET PO (06:51)
[2022-08-14] MEDS: OMEPRAZOLE 20 MG CAPSULE DR PO (06:51)
[2022-08-14] MEDS: ACETAMINOPHEN 325 MG TABLET 650 MG PO ×2 (08:09→15:50)
[2022-08-14] MEDS: SPIRIVA HANDIHALER INH (08:09)
[2022-08-14] MEDS: ASPIRIN 81 MG TABLET EC PO (08:09)
[2022-08-14] MEDS: METOPROLOL SUCCINATE (XL) 25 MG TAB PO (08:09)
[2022-08-14] MEDS: SERTRALINE 100 MG TABLET PO (08:10)
[2022-08-14] MEDS: MELATONIN 3 MG TABLET 5 MG PO (19:40)
[2022-08-14] MEDS: DONEPEZIL 5 MG TABLET PO (19:40)
--- NOTE | 2022-08-14 21:57 | PC.NURSE ---
Staff used medistand for all transfers this shift. Resident had some confusion after awakening from nap this afternoon. Was attempting to get out of bed on her own with no assistive device, walker or w/c. Was too weak to stand with Ax1. Light Technician used medistand and toileted resident. Reoriented and was given ensure and snacks in room before supper. No hollering out was heard this shift. In bed by 20:00 and sleeping at this time.
[2022-08-15] MEDS: RISEDRONATE 35 MG PO (05:24)
[2022-08-15] MEDS: OMEPRAZOLE 20 MG CAPSULE DR PO (06:48)
[2022-08-15] MEDS: LEVOTHYROXINE 50 MCG TABLET PO (06:48)
[2022-08-15] MEDS: ACETAMINOPHEN 325 MG TABLET 650 MG PO ×2 (08:19→15:20)
[2022-08-15] MEDS: METOPROLOL SUCCINATE (XL) 25 MG TAB PO (08:20)
[2022-08-15] MEDS: SERTRALINE 100 MG TABLET PO (08:20)
[2022-08-15] MEDS: SPIRIVA HANDIHALER INH (08:20)
[2022-08-15] MEDS: ASPIRIN 81 MG TABLET EC PO (08:20)
[2022-08-15 10:23] VITALS: BP 113/67; PULSE 62; RESP 20; TEMP 36.3; O2SAT 94
[2022-08-15] MEDS: MELATONIN 3 MG TABLET 5 MG PO (19:50)
[2022-08-15] MEDS: DONEPEZIL 5 MG TABLET PO (19:50)
[2022-08-15] MEDS: LORazepam 0.5 MG TABLET PO (23:20)
[2022-08-16] MEDS: LEVOTHYROXINE 50 MCG TABLET PO (07:25)
[2022-08-16] MEDS: OMEPRAZOLE 20 MG CAPSULE DR PO (07:25)
[2022-08-16] MEDS: ASPIRIN 81 MG TABLET EC PO (08:23)
[2022-08-16] MEDS: ACETAMINOPHEN 325 MG TABLET 650 MG PO ×2 (08:23→16:12)
[2022-08-16] MEDS: SERTRALINE 100 MG TABLET PO (08:24)
[2022-08-16] MEDS: METOPROLOL SUCCINATE (XL) 25 MG TAB PO (08:24)
[2022-08-16] MEDS: SPIRIVA HANDIHALER INH (08:25)
[2022-08-16] MEDS: MELATONIN 3 MG TABLET 5 MG PO (19:09)
[2022-08-16] MEDS: DONEPEZIL 5 MG TABLET PO (19:09)
[2022-08-17] MEDS: LEVOTHYROXINE 50 MCG TABLET PO (07:03)
[2022-08-17] MEDS: OMEPRAZOLE 20 MG CAPSULE DR PO (07:03)
[2022-08-17] MEDS: ACETAMINOPHEN 325 MG TABLET 650 MG PO ×2 (08:08→16:08)
[2022-08-17] MEDS: METOPROLOL SUCCINATE (XL) 25 MG TAB PO (08:08)
[2022-08-17] MEDS: SPIRIVA HANDIHALER INH (08:08)
[2022-08-17] MEDS: ASPIRIN 81 MG TABLET EC PO (08:08)
[2022-08-17] MEDS: SERTRALINE 100 MG TABLET PO (08:09)
[2022-08-17] MEDS: MELATONIN 3 MG TABLET 5 MG PO (19:56)
[2022-08-17] MEDS: DONEPEZIL 5 MG TABLET PO (19:56)
[2022-08-17] MEDS: LORazepam 0.5 MG TABLET PO (23:34)
[2022-08-18] MEDS: OMEPRAZOLE 20 MG CAPSULE DR PO (06:42)
[2022-08-18] MEDS: LEVOTHYROXINE 50 MCG TABLET PO (06:43)
[2022-08-18] MEDS: ACETAMINOPHEN 325 MG TABLET 650 MG PO ×2 (08:13→15:45)
[2022-08-18] MEDS: SERTRALINE 100 MG TABLET PO (08:13)
[2022-08-18] MEDS: METOPROLOL SUCCINATE (XL) 25 MG TAB PO (08:13)
[2022-08-18] MEDS: SPIRIVA HANDIHALER INH (08:13)
[2022-08-18] MEDS: ASPIRIN 81 MG TABLET EC PO (08:13)
[2022-08-18] MEDS: DONEPEZIL 5 MG TABLET PO (19:41)
[2022-08-18] MEDS: MELATONIN 3 MG TABLET 5 MG PO (19:41)
--- NOTE | 2022-08-18 21:32 | PC.NURSE ---
Resident transferring well today. Ax1 with gait belt and pivot transfer to w/c. Attempted ambulating with walker to bathroom from bed, but stated she was too tired. Only one occasion of calling out for help after sleeping for 1 1/2 hour. Tearoom Hostess heard from passing by in hallway and entered room. Resident states, Help me, I don't know where I am, and I've wet myself. Tearoom Hostess provided reassurance and assisted resident into bathroom. Resident incontinent of bladder at this time. Did not void on toilet. Res. in bed resting at this time with call light in reach.
[2022-08-18] MEDS: LORazepam 0.5 MG TABLET PO (23:24)
[2022-08-19] MEDS: OMEPRAZOLE 20 MG CAPSULE DR PO (07:28)
[2022-08-19] MEDS: LEVOTHYROXINE 50 MCG TABLET PO (07:28)
[2022-08-19] MEDS: ASPIRIN 81 MG TABLET EC PO (08:07)
[2022-08-19] MEDS: METOPROLOL SUCCINATE (XL) 25 MG TAB PO (08:07)
[2022-08-19] MEDS: ACETAMINOPHEN 325 MG TABLET 650 MG PO ×2 (08:07→15:10)
[2022-08-19] MEDS: SERTRALINE 100 MG TABLET PO (08:08)
[2022-08-19] MEDS: SPIRIVA HANDIHALER INH (08:08)
--- NOTE | 2022-08-19 10:15 | PC.NURSE ---
Status: Resident would only take one of her Tylenol this morning, stating I gave her two. Tried to tell her she is to have 2 but still refused.
--- NOTE | 2022-08-19 14:37 | PC.NURSE ---
Purple bruise 3cm x 2cm to right side back of head noted. Spoke to account executive trainee day aide who said this had appeared on 08/15/22 when resident stated she was sitting on the edge of her bed and fell backwards and hit her head on her bedside table. No headaches or adverse effects noted since. Resident denies pain. Will fill out incident report out at this time. Intervention started.
[2022-08-19] MEDS: DONEPEZIL 5 MG TABLET PO (19:26)
[2022-08-19] MEDS: MELATONIN 3 MG TABLET 5 MG PO (19:26)
--- NOTE | 2022-08-19 20:37 | PC.NURSE ---
Status: Resident self transferred from wheel chair to bed. When asking resident how she got there she stated I probably should have asked for help. Then put her finger over her lips and went shh.
--- NOTE | 2022-08-20 02:34 | PC.NURSE ---
Week#1: Care plan and temporary care plan reviewed with no changes or additions. Receives acetaminophen 650mg BID which is noted to be effective for pain management. Pain does not impact quality of life or cause anxiety. Assist of 1 with ADLs. Staff encourage resident participation. Feeds self after setup. Appetite is poor.
--- NOTE | 2022-08-20 04:51 | PC.NURSE ---
Production Line Operator heard resident calling out for help. Aid entered room to find resident up walking independently in room. Resident stated don't tell anyone what I did. Staff assisted resident to toilet and back to bed safely.
[2022-08-20] MEDS: OMEPRAZOLE 20 MG CAPSULE DR PO (06:55)
[2022-08-20] MEDS: LEVOTHYROXINE 50 MCG TABLET PO (06:55)
[2022-08-20] MEDS: SPIRIVA HANDIHALER INH (08:22)
[2022-08-20] MEDS: METOPROLOL SUCCINATE (XL) 25 MG TAB PO (08:22)
[2022-08-20] MEDS: ASPIRIN 81 MG TABLET EC PO (08:22)
[2022-08-20] MEDS: ACETAMINOPHEN 325 MG TABLET 650 MG PO ×2 (08:22→15:58)
[2022-08-20] MEDS: SERTRALINE 100 MG TABLET PO (08:23)
--- NOTE | 2022-08-20 09:35 | PC.NURSE ---
Week #1: Care plan problems 1-19 and temporary care plan reviewed. No changes made. Nothing added to temporary care plan. VS reviewed, no concerns. Resident needs one assist with dressing, grooming,and bathing. Encourage participation as able. Does oral cares after staff set up & cues. Is on regular diet. Feed self. Receives Edi for wound healing, & nourishment for weight maintenance. Appetite poor-fair. No problems noted with chewing/swallowing. Pain: No complain the past month. Pain is managed with Tylenol 650mg BID. 08/09 Lidocaine patch discontinued. Staff continue to monitor for pain.
--- NOTE | 2022-08-20 12:02 | PC.SPIRITC ---
Sanitary Plumber provided visit for support and connection. Amberly expressed how grateful she is for her family's support through the transitions she has been experiencing.
[2022-08-20] MEDS: DONEPEZIL 5 MG TABLET PO (19:43)
[2022-08-20] MEDS: MELATONIN 3 MG TABLET 5 MG PO (19:43)
[2022-08-20] MEDS: LORazepam 0.5 MG TABLET PO (23:09)
[2022-08-21] MEDS: RISEDRONATE 35 MG PO (05:08)
[2022-08-21] MEDS: OMEPRAZOLE 20 MG CAPSULE DR PO (07:51)
[2022-08-21] MEDS: LEVOTHYROXINE 50 MCG TABLET PO (07:51)
[2022-08-21] MEDS: METOPROLOL SUCCINATE (XL) 25 MG TAB PO (07:53)
[2022-08-21] MEDS: ASPIRIN 81 MG TABLET EC PO (07:53)
[2022-08-21] MEDS: SPIRIVA HANDIHALER INH (07:53)
[2022-08-21] MEDS: ACETAMINOPHEN 325 MG TABLET 650 MG PO ×2 (07:53→15:38)
[2022-08-21] MEDS: SERTRALINE 100 MG TABLET PO (07:53)
[2022-08-21] MEDS: MELATONIN 3 MG TABLET 5 MG PO (19:12)
[2022-08-21] MEDS: DONEPEZIL 5 MG TABLET PO (19:12)
--- NOTE | 2022-08-21 21:53 | PC.NURSE ---
Resident has bruise to back of head. Casino Gaming Worker offered ice but res. refused. Denies any pain or discomfort.
--- NOTE | 2022-08-22 05:50 | PC.NURSE ---
Sleeping well beginning of shift. Became restless approximately 0100. Has been up to toilet multiple times. Yelling out at staff. Sat at nurses desk with policy writer sales. Denied pain or hunger. Drank a can of pop. Returned to bed and has continued to be restless and calling out.
[2022-08-22] MEDS: LEVOTHYROXINE 50 MCG TABLET PO (07:40)
[2022-08-22] MEDS: OMEPRAZOLE 20 MG CAPSULE DR PO (07:40)
[2022-08-22] MEDS: ACETAMINOPHEN 325 MG TABLET 650 MG PO ×2 (08:17→16:15)
[2022-08-22] MEDS: METOPROLOL SUCCINATE (XL) 25 MG TAB PO (08:17)
[2022-08-22] MEDS: ASPIRIN 81 MG TABLET EC PO (08:17)
[2022-08-22] MEDS: SERTRALINE 100 MG TABLET PO (08:20)
[2022-08-22] MEDS: SPIRIVA HANDIHALER INH (08:20)
[2022-08-22 09:57] VITALS: BP 124/74; PULSE 78; RESP 18; TEMP 36.4; O2SAT 93; BMI 20.8
[2022-08-22] MEDS: MELATONIN 3 MG TABLET 5 MG PO (19:44)
[2022-08-22] MEDS: DONEPEZIL 5 MG TABLET PO (19:44)
--- NOTE | 2022-08-22 21:49 | PC.NURSE ---
Resident in bed had been sleeping for 1 hour. [place] from hallway calling out for help. Stated she is wet and the entire bed is soaked. Brief and bed is dry, resident was toileted with small void, and back in bed. Still upset about the bed being wet. Yelling at staff. Broadcast Technician reassured resident that her bed and brief are dry.
[2022-08-22] MEDS: LORazepam 0.5 MG TABLET PO (22:00)
[2022-08-23] MEDS: LEVOTHYROXINE 50 MCG TABLET PO (07:50)
[2022-08-23] MEDS: OMEPRAZOLE 20 MG CAPSULE DR PO (07:50)
[2022-08-23] MEDS: METOPROLOL SUCCINATE (XL) 25 MG TAB PO (07:51)
[2022-08-23] MEDS: ACETAMINOPHEN 325 MG TABLET 650 MG PO ×2 (07:51→15:38)
[2022-08-23] MEDS: ASPIRIN 81 MG TABLET EC PO (07:51)
[2022-08-23] MEDS: SPIRIVA HANDIHALER INH (07:52)
[2022-08-23] MEDS: SERTRALINE 100 MG TABLET PO (07:52)
[2022-08-23] MEDS: DONEPEZIL 5 MG TABLET PO (19:55)
[2022-08-23] MEDS: MELATONIN 3 MG TABLET 5 MG PO (19:55)
[2022-08-24] MEDS: ASPIRIN 81 MG TABLET EC PO (07:05)
[2022-08-24] MEDS: OMEPRAZOLE 20 MG CAPSULE DR PO (07:05)
[2022-08-24] MEDS: ACETAMINOPHEN 325 MG TABLET 650 MG PO ×2 (07:05→15:51)
[2022-08-24] MEDS: LEVOTHYROXINE 50 MCG TABLET PO (07:05)
[2022-08-24] MEDS: METOPROLOL SUCCINATE (XL) 25 MG TAB PO (07:06)
[2022-08-24] MEDS: SPIRIVA HANDIHALER INH (07:08)
[2022-08-24] MEDS: SERTRALINE 100 MG TABLET PO (07:08)
[2022-08-24] MEDS: DONEPEZIL 5 MG TABLET PO (19:43)
[2022-08-24] MEDS: MELATONIN 3 MG TABLET 5 MG PO (19:43)
--- NOTE | 2022-08-25 01:49 | PC.NURSE ---
Self-transferring: Resident was noted standing beside her bed getting ready for the day at 0130 hours. She was redirected back to her bed with any problems.
--- NOTE | 2022-08-25 05:41 | PC.NURSE ---
Self Transfer: Resident self transfer twice by herself using the walker to the bathroom.She was redirected and instructed to wait for assistance from staff to prevent fall.
[2022-08-25] MEDS: LEVOTHYROXINE 50 MCG TABLET PO (07:08)
[2022-08-25] MEDS: ACETAMINOPHEN 325 MG TABLET 650 MG PO ×2 (07:08→15:23)
[2022-08-25] MEDS: OMEPRAZOLE 20 MG CAPSULE DR PO (07:08)
[2022-08-25] MEDS: SERTRALINE 100 MG TABLET PO (07:09)
[2022-08-25] MEDS: ASPIRIN 81 MG TABLET EC PO (07:09)
[2022-08-25] MEDS: METOPROLOL SUCCINATE (XL) 25 MG TAB PO (07:09)
[2022-08-25] MEDS: SPIRIVA HANDIHALER INH (07:09)
--- NOTE | 2022-08-25 19:00 | PC.NURSE ---
Ambulation: Resident observed self transferring, and moves to different locations as she walks in the hallway, dinning room, and bedroom using her walker without staff assistance. Resident was encouraged to use her call light to sought assistance in order to prevent falling, but has not been complying. Staff has been anticipating her needs and checking on her frequently.
[2022-08-25] MEDS: MELATONIN 3 MG TABLET 5 MG PO (19:24)
[2022-08-25] MEDS: DONEPEZIL 5 MG TABLET PO (19:24)
[2022-08-26] MEDS: OMEPRAZOLE 20 MG CAPSULE DR PO (07:02)
[2022-08-26] MEDS: LEVOTHYROXINE 50 MCG TABLET PO (07:02)
[2022-08-26] MEDS: METOPROLOL SUCCINATE (XL) 25 MG TAB PO (08:17)
[2022-08-26] MEDS: ACETAMINOPHEN 325 MG TABLET 650 MG PO ×2 (08:17→16:06)
[2022-08-26] MEDS: SPIRIVA HANDIHALER INH (08:17)
[2022-08-26] MEDS: ASPIRIN 81 MG TABLET EC PO (08:17)
[2022-08-26] MEDS: SERTRALINE 100 MG TABLET PO (08:17)
[2022-08-26] MEDS: LORazepam 0.5 MG TABLET PO (18:32)
[2022-08-26] MEDS: DONEPEZIL 5 MG TABLET PO (20:01)
[2022-08-26] MEDS: MELATONIN 3 MG TABLET 5 MG PO (20:01)
--- NOTE | 2022-08-26 20:10 | PC.NURSE ---
Behavior: Resident yelling at staff stating the she is going home and that she does not live here. Resident calmed down for a short time when staff redirected. Resident was given Ativan PRN at 1832, was effective, resident is resting now.
--- NOTE | 2022-08-27 03:14 | PC.NURSE ---
Weekly Charting-Week 1: Upon review no changes noted to Care Plan 1-19 and no Temporary Care Plan found. Vital signs are stable. Pain is controlled with Tylenol scheduled BID. She has anxiety but not related to pain. She requires limited assist of one for bathing,dressing,grooming and toileting. She will call multiple times during the night to go to the bathroom but is wet when she gets to the bathroom. Resident has poor appetite. Will complain at times of nausea after eating but she wants to be able to leave the dining room and go back to her room. No noted issues with swallowing or choking. She can feed herself but needs encouragement to eat.
[2022-08-27] MEDS: OMEPRAZOLE 20 MG CAPSULE DR PO (06:57)
[2022-08-27] MEDS: LEVOTHYROXINE 50 MCG TABLET PO (06:57)
[2022-08-27] MEDS: SPIRIVA HANDIHALER INH (07:30)
[2022-08-27] MEDS: ACETAMINOPHEN 325 MG TABLET 650 MG PO ×2 (07:30→16:12)
[2022-08-27] MEDS: METOPROLOL SUCCINATE (XL) 25 MG TAB PO (07:30)
[2022-08-27] MEDS: SERTRALINE 100 MG TABLET PO (07:30)
[2022-08-27] MEDS: ASPIRIN 81 MG TABLET EC PO (07:30)
--- NOTE | 2022-08-27 10:43 | PC.NURSE ---
Week #2: Mobility: No changes made in care plan, & nothing added to temporary care plan. Currently, does not require the use of medi stand. Transfers and ambulate with one assist, transfer belt and walker. Follow with wheelchair when ambulating if needed. Staff wheels to destinations. Is turn & reposition every 2 hours with one staff assist. Top side rails up to aid for bed mobility. No alarms. Fall: No falls the past month. Is a high fall risk according to assessment done on 08/07/22.
--- NOTE | 2022-08-27 11:06 | PC.NURSE ---
UPDATE TO ADULT PSYCHIATRIST Genesis Cain ADULT PSYCHIATRIST of residents restlessness at night and possible change in medications needed. She will review and update staff on any changes that she chooses to make.
--- NOTE | 2022-08-27 11:07 | PC.NURSE ---
Skin Care: Bruise on her head had resolved. Intervention completed
[2022-08-27 12:36] VITALS: BMI 21.0
[2022-08-27] MEDS: MELATONIN 3 MG TABLET 5 MG PO (19:53)
[2022-08-27] MEDS: DONEPEZIL 5 MG TABLET PO (19:53)
[2022-08-27] MEDS: LORazepam 0.5 MG TABLET PO (22:52)
[2022-08-28] MEDS: LEVOTHYROXINE 50 MCG TABLET PO (07:12)
[2022-08-28] MEDS: OMEPRAZOLE 20 MG CAPSULE DR PO (07:12)
[2022-08-28] MEDS: ACETAMINOPHEN 325 MG TABLET 650 MG PO ×2 (07:13→16:06)
[2022-08-28] MEDS: SPIRIVA HANDIHALER INH (07:13)
[2022-08-28] MEDS: METOPROLOL SUCCINATE (XL) 25 MG TAB PO (07:13)
[2022-08-28] MEDS: ASPIRIN 81 MG TABLET EC PO (07:13)
[2022-08-28] MEDS: SERTRALINE 100 MG TABLET PO (07:14)
--- NOTE | 2022-08-28 16:01 | NUTR.NU ---
Nutrition Update: RDN with nutrition update related to stage 3 pressure ulcer. Per nursing, pressure ulcers continues to be at stage 3. No current meal intakes to assess - RDN asked for meal intake monitoring to resume. Current diet is Regular. Resident is receiving Edi daily; intakes have mainly been 100% within the past week (x1 refusal). Resident is also receiving supplement once daily; averaging ~80% intake within the past week (x2 refusals). Supplements and Edi provide ~500 kcals and ~20 grams protein daily to help with wound healing and to meet estimated energy needs. Current weight 115 lbs; BMI is normal at 21.0 kg/m2. Weight has been stable within the last 30 days. No change in interventions at this time. RDN will continue to monitor and follow-up prn.
[2022-08-28] MEDS: DONEPEZIL 5 MG TABLET PO (20:18)
[2022-08-28] MEDS: MELATONIN 3 MG TABLET 5 MG PO (20:18)
[2022-08-28] MEDS: LORazepam 0.5 MG TABLET PO (23:25)
[2022-08-29] MEDS: RISEDRONATE 35 MG PO (04:27)
[2022-08-29] MEDS: OMEPRAZOLE 20 MG CAPSULE DR PO (07:16)
[2022-08-29] MEDS: LEVOTHYROXINE 50 MCG TABLET PO (07:16)
[2022-08-29] MEDS: METOPROLOL SUCCINATE (XL) 25 MG TAB PO (07:25)
[2022-08-29] MEDS: ACETAMINOPHEN 325 MG TABLET 650 MG PO ×3 (07:25→17:30)
[2022-08-29] MEDS: SPIRIVA HANDIHALER INH (07:25)
[2022-08-29] MEDS: ASPIRIN 81 MG TABLET EC PO (07:25)
[2022-08-29] MEDS: SERTRALINE 100 MG TABLET PO (07:26)
[2022-08-29 08:00] VITALS: BP 106/67; PULSE 67; RESP 18; TEMP 36.3; O2SAT 95
--- NOTE | 2022-08-29 11:49 | PC.NURSE ---
Order: Ant ALEX here. Increase Zoloft 100mg to 125mg daily.
[2022-08-29] MEDS: MELATONIN 3 MG TABLET 5 MG PO (19:53)
[2022-08-29] MEDS: DONEPEZIL 5 MG TABLET PO (19:53)
[2022-08-29] MEDS: LORazepam 0.5 MG TABLET PO (23:26)
[2022-08-30] MEDS: OMEPRAZOLE 20 MG CAPSULE DR PO (06:48)
[2022-08-30] MEDS: LEVOTHYROXINE 50 MCG TABLET PO (06:48)
[2022-08-30] MEDS: ACETAMINOPHEN 325 MG TABLET 650 MG PO ×2 (08:27→15:31)
[2022-08-30] MEDS: ASPIRIN 81 MG TABLET EC PO (08:27)
[2022-08-30] MEDS: METOPROLOL SUCCINATE (XL) 25 MG TAB PO (08:28)
[2022-08-30] MEDS: SPIRIVA HANDIHALER INH (08:28)
[2022-08-30] MEDS: SERTRALINE 100 MG TABLET 125 MG PO (08:29)
[2022-08-30 09:47] VITALS: BMI 21.4
[2022-08-30] MEDS: MELATONIN 3 MG TABLET 5 MG PO (19:02)
[2022-08-30] MEDS: DONEPEZIL 5 MG TABLET PO (19:02)
--- NOTE | 2022-08-30 21:47 | PC.NURSE ---
Resident became tearful immediately after finishing supper. Was propelling down hallway stating, I'm all mixed up, I don't know where my home is. Medical Accounting Clerk reassured resident that she has a room here and her daughter knows where she is. 1:1 community support associate sat with resident for 1 hour between 6pm-7pm. Resident using negative self-talk and stating, I just can't believe I use to be able to do everything for myself and now I can't. I am so stupid. In bed at 19:35. Slept for 2 hours and was heard in hallway calling out for help. Was toileted with void and small BM. Resident now sleeping at this time.
[2022-08-31] MEDS: LEVOTHYROXINE 50 MCG TABLET PO (07:02)
[2022-08-31] MEDS: OMEPRAZOLE 20 MG CAPSULE DR PO (07:02)
[2022-08-31] MEDS: ACETAMINOPHEN 325 MG TABLET 650 MG PO ×2 (08:32→15:22)
[2022-08-31] MEDS: SPIRIVA HANDIHALER INH (08:33)
[2022-08-31] MEDS: ASPIRIN 81 MG TABLET EC PO (08:33)
[2022-08-31] MEDS: METOPROLOL SUCCINATE (XL) 25 MG TAB PO (08:33)
[2022-08-31] MEDS: SERTRALINE 100 MG TABLET 125 MG PO (08:34)
[2022-08-31] MEDS: MELATONIN 3 MG TABLET 5 MG PO (19:23)
[2022-08-31] MEDS: DONEPEZIL 5 MG TABLET PO (19:23)
[2022-08-31] MEDS: LORazepam 0.5 MG TABLET PO ×2 (23:32→23:33)
[2022-09-01] MEDS: LEVOTHYROXINE 50 MCG TABLET PO (07:34)
[2022-09-01] MEDS: OMEPRAZOLE 20 MG CAPSULE DR PO (07:34)
[2022-09-01] MEDS: ACETAMINOPHEN 325 MG TABLET 650 MG PO ×2 (08:02→15:11)
[2022-09-01] MEDS: ASPIRIN 81 MG TABLET EC PO (08:02)
[2022-09-01] MEDS: METOPROLOL SUCCINATE (XL) 25 MG TAB PO (08:02)
[2022-09-01] MEDS: SPIRIVA HANDIHALER INH (08:03)
[2022-09-01] MEDS: SERTRALINE 100 MG TABLET 125 MG PO (08:03)
[2022-09-01] MEDS: MELATONIN 3 MG TABLET 5 MG PO (19:48)
[2022-09-01] MEDS: DONEPEZIL 5 MG TABLET PO (19:48)
[2022-09-01] MEDS: LORazepam 0.5 MG TABLET PO (23:25)
[2022-09-02] MEDS: LEVOTHYROXINE 50 MCG TABLET PO (07:48)
[2022-09-02] MEDS: OMEPRAZOLE 20 MG CAPSULE DR PO (07:48)
[2022-09-02] MEDS: METOPROLOL SUCCINATE (XL) 25 MG TAB PO (07:56)
[2022-09-02] MEDS: SERTRALINE 100 MG TABLET 125 MG PO (07:56)
[2022-09-02] MEDS: ACETAMINOPHEN 325 MG TABLET 650 MG PO ×3 (07:56→21:54)
[2022-09-02] MEDS: SPIRIVA HANDIHALER INH (07:56)
[2022-09-02] MEDS: ASPIRIN 81 MG TABLET EC PO (07:56)
[2022-09-02 18:20] VITALS: BP 146/63; PULSE 66; RESP 22; TEMP 36.5; O2SAT 92
--- NOTE | 2022-09-02 18:30 | PC.NURSE ---
Resident had an unwitnessed fall in the bathroom 1819. Noted to have hit the back of her head. Resident on daily Aspirin. Hematoma present. VS taken. Resident c/o headache. Daughter Alison called and updated of fall and wishes for further treatment/imagining. Daughter called her brother and they have decided that they would like the resident seen in the ER for further treatment.
--- NOTE | 2022-09-02 18:50 | PC.NURSE ---
Spoke to on-call provider Genesis Cain GOLF CART ATTENDANT about residents fall, medication use, hematoma and c/o headache. Updated on families wishes to have resident seen in the ER for imagining and further workup. Genesis gave verbal order: Ok to send to the ER at this time.
--- NOTE | 2022-09-02 18:55 | PC.NURSE ---
ER nurse Raf and compressor house operator Jose given report on residents status and transfer to the ER. Jose will arrive with gurny and neckbrace. Per Raf send medication list and recent vitals signs.
--- NOTE | 2022-09-02 19:20 | PC.NURSE ---
Resident sent to the ER by danitza with neck brace in place. Resident stating this is no big deal. Resident has dx dementia and baseline is pleasantly confused. Did c/o pain in back and head during sliding transfer. Possibly caused by danitza. Transferred by greenhouse florist. Medication list, vital signs and wrist band placed with resident. Daughter at residents side during transition. Update given to daughter on where and what resident said at the time of fall as fall was unwitnessed. DON placing [facility] report. Will await report from ER.
--- NOTE | 2022-09-02 21:25 | LTC.FALL ---
[facility] Fall Note: o Fall Date: 09/02/22 o Fall Time: 182 o What happened? Fell in the bathroom. o Who found the resident and who responded? One of the floor DARIN found her, and other staff members including floor nurse and other DARIN responded. o What was the resident doing? According to the designated DARIN, resident was brought to the bathroom to urinate, and was asked to turn her call light on when done. But she was heard yelling for help, and that was when she was found on the bathroom floor. Resident indicated an attempt to get herself out of the bathroom led to falling. o How the resident was found (knees, left side, arm under them), any hazards (cords, objects, nonskid slippers) brakes on? Proper equipment? Resident was found on a supine position in the bathroom floor. o Did you assess for head trauma, spinal injuries, skeletal injuries, neurological changes and status, and head and neck pain? What did you find? Yes, head-to-toe assessment was done. About a 6x4cm swollen at the back of head found. o Did you assess ROM in shoulders, elbows, hips, knees, any other affected areas, unless there is suspected spinal injury. C/o pain TO lower back with ROM. o Did you Assess for pain or discomfort? Yes, C/O pain to head and lower back. o What are the injuries and how are they being treated? Ice applied, transferred to the ED o How was the resident transferred from the floor? With 3 assistance o Did you call the MD or put a note in the CABINET ASSEMBLER book? Yes o Enter vital signs. Entered in the MAR o Did you notify family? Yes. o What was the root cause of the fall? Why did it happen? Confusion. o Create an IMMEDIATE INTERVENTION to ensure that this won't immediately happen again. (Put in temporary care plan too) o Complete Safety report and huddle (now one form) o If resident is seen in ED or fractured something, note that you started a [facility] Report process. Instructions are at the East nurse's desk in a red binder labeled [facility] report.
[2022-09-02] MEDS: DONEPEZIL 5 MG TABLET PO (21:58)
[2022-09-02] MEDS: MELATONIN 3 MG TABLET 5 MG PO (21:59)
--- NOTE | 2022-09-02 22:02 | PC.NURSE ---
Back: Nickel Plater got a call from ED that said that residents CT scan and x-ray came back normal. Resident returned to LTC at 2129 with daughter. Was given Tylenol at 2153 for head and hip pain. Is having some behaviors tonight of confusion and, agitation. From ED: Ice these sore areas 2-3 times daily over the next few days. Especially if your hip area/sacrum really seems to be not getting better over the next five days or days or so, reconsider imaging. Be seen for marked increase in pain, repeated vomiting, severe headache.
[2022-09-02 22:44] VITALS: BP 107/64; PULSE 78; RESP 16; TEMP 36.7; O2SAT 94
--- NOTE | 2022-09-02 23:13 | PC.NURSE ---
FALL FOLLOW UP: Vital signs: 98.0-78-16-107/64-94% on RA. Orientation per baseline. PERRLA. Hand grasps strong and equal. Denies any headache, blurred vision, or upset stomach. States she has a little hip pain, but that it has improved since administration of PRN acetaminophen.
[2022-09-03 02:00] VITALS: BP 110/69; PULSE 72; RESP 18; TEMP 36.7; O2SAT 95
--- NOTE | 2022-09-03 02:46 | PC.NURSE ---
WEEKLY -CHARTING - WEEK 3: Vital signs reviewed with no concerns. Temporary care plan initiated. Fall with head strike on 09/02/22 added. Comprehensive care plan reviewed with no changes. Per weekly skin assessment, wound on coccyx is healing. Mepilex border dressing in place. No s/sx of infection present. No other skin integrity concerns. Extensive assist of 1 with toileting needs. Staff check resident every 2 hours and assist with toileting as needed. Primarily continent of bowels with occasional incontinence. Frequent urinary incontinence with some control. Wears medium pull-up/brief. Staff provide farhan-cares with toileting.
--- NOTE | 2022-09-03 03:10 | PC.NURSE ---
FALL FOLLOW UP: Vital signs: 98.1-72-16-110/69-95% on RA. Orientation per baseline. PERRLA. Hand grasps strong and equal. Denies any headache, blurred vision, or upset stomach. Continues with mild pain to R lower back/hip area.
[2022-09-03] MEDS: ACETAMINOPHEN 325 MG TABLET 650 MG PO ×4 (04:27→15:14)
[2022-09-03 05:43] VITALS: BP 128/62; PULSE 70; RESP 18; TEMP 36.7; O2SAT 94
--- NOTE | 2022-09-03 05:44 | PC.NURSE ---
FALL FOLLOW UP: Vital signs: 98.0-70-18-128/62-94% on RA. PERRLA. Hand grasps strong and equal. Denies headache, double vision, or nausea. Continues to c/o right hip pain. PRN acetaminophen administered for c/o hip pain at 0428 and was ineffective. Resident has been verbally abusive to staff throughout the night. Any interventions attempted have been ineffective.
[2022-09-03] MEDS: OMEPRAZOLE 20 MG CAPSULE DR PO (07:05)
[2022-09-03] MEDS: LEVOTHYROXINE 50 MCG TABLET PO (07:05)
[2022-09-03] MEDS: ASPIRIN 81 MG TABLET EC PO (07:06)
[2022-09-03] MEDS: METOPROLOL SUCCINATE (XL) 25 MG TAB PO (07:08)
[2022-09-03] MEDS: SPIRIVA HANDIHALER INH (07:09)
[2022-09-03] MEDS: SERTRALINE 100 MG TABLET 125 MG PO (07:09)
--- NOTE | 2022-09-03 10:16 | PC.NURSE ---
Week #3 - Toileting: Care plan reviewed, no changes made. Nothing added to temporary care plan. Resident has frequent bladder incontinence, occasional bowel incontinence. Needs one assist with toileting. Staff to check every 2 hours and toilet as needed & per her request. Pads, pericares, and clothing adjustment done by staff. VS reviewed. No concerns. Skin: Has a wound on the coccyx cleansed with wound cleanser, covered with Mepilex. Changed Q48H or PRN. Wound is healing. Resident is turn & reposition every 2 hours. Skin is checked during cares and on bath day.
[2022-09-03 11:03] VITALS: BP 113/68; PULSE 73; RESP 20; TEMP 36.2; O2SAT 96
--- NOTE | 2022-09-03 11:05 | PC.NURSE ---
Fall F/U : Resident is alert and able to follow instruction. Vitals and neuro check WNL. Natural Developer both hands normal. Able to ambulate from wheel chair to bed and bathroom with assistance. Applied ice on her back of the head. Complain of pain on her hip and PRN tylenol was given.
--- NOTE | 2022-09-03 12:03 | PC.SPIRITC ---
provided visit for connection and support.
--- NOTE | 2022-09-03 12:49 | PC.NURSE ---
ISAI, Ant davison. Updated of 09/02/22 fall.
[2022-09-03 15:00] VITALS: BP 128/68; PULSE 72; RESP 18; TEMP 36.5; O2SAT 94
--- NOTE | 2022-09-03 17:08 | PC.NURSE ---
Fall follow-up: Vital signs and neuro assessment completed. PERRLA intact, Peripheral anderson full. C/O minimal pain to lower back with ROM. Denies blurriness, but admits pain to back of head - ice applied and Acetaminophen given. No vomiting episode reported or noted. Level of consciousness remains at baseline, and vital signs are within resident's normal ranges. No new concerns relating to fall incident noted at this time. Will continue to monitor. Resident cheerfully participated in all the afternoon social activities.
[2022-09-03 19:00] VITALS: BP 107/58; PULSE 78; RESP 18; TEMP 36.7; O2SAT 93
[2022-09-03] MEDS: DONEPEZIL 5 MG TABLET PO (19:37)
[2022-09-03] MEDS: MELATONIN 3 MG TABLET 5 MG PO (19:37)
[2022-09-03 23:00] VITALS: BP 136/71; PULSE 78; RESP 18; TEMP 36.4; O2SAT 94
--- NOTE | 2022-09-04 00:20 | PC.NURSE ---
Fall f/u: No verbal or nonverbal indication of pain noted at this time. Resident sleeping comfortably in bed. VSS, neuro check completed and WNL's. will continues to monitor.
[2022-09-04] MEDS: ACETAMINOPHEN 325 MG TABLET 650 MG PO ×4 (01:20→20:07)
[2022-09-04 03:00] VITALS: BP 126/73; PULSE 78; RESP 18; TEMP 36.4; O2SAT 94
--- NOTE | 2022-09-04 03:48 | PC.NURSE ---
Fall f/u: Resident complains Rt hip pain, encouraged repositioning and given prn Tylenol 0123 which was effective upon f/u's. Resident sleeping comfortably in bed. VSS, neuro check completed and WNL's. Resident able to move all extremities per her baseline with minor pain to Rt hip.
[2022-09-04] MEDS: RISEDRONATE 35 MG PO (05:20)
[2022-09-04] MEDS: OMEPRAZOLE 20 MG CAPSULE DR PO (06:58)
[2022-09-04] MEDS: LEVOTHYROXINE 50 MCG TABLET PO (06:58)
[2022-09-04] MEDS: ASPIRIN 81 MG TABLET EC PO (08:31)
[2022-09-04] MEDS: SPIRIVA HANDIHALER INH (08:31)
[2022-09-04] MEDS: METOPROLOL SUCCINATE (XL) 25 MG TAB PO (08:31)
[2022-09-04] MEDS: SERTRALINE 100 MG TABLET 125 MG PO (08:32)
[2022-09-04 10:35] VITALS: BP 128/74; PULSE 70; RESP 20; TEMP 36.3; O2SAT 97
[2022-09-04 14:00] VITALS: BP 112/70; PULSE 76; RESP 18; TEMP 37.3; O2SAT 94
--- NOTE | 2022-09-04 14:13 | CRLHL7_ITS ---
For Patients: As a result of the Century Cures Act, medical imaging exams and procedure reports are released immediately into your electronic medical record. You may view this report before your referring provider. If you have questions, please contact your health care provider. HISTORY: Right hip pain. Recent fall. TECHNIQUE: Noncontrast CT right hip. COMPARISON: Radiographs 09/02/2022. FINDINGS: There is no acute pelvic or proximal femoral fracture. Degenerative changes of the hips. Degenerative changes of the pubic symphysis and sacroiliac joints. Degenerative changes within the lower lumbar spine. - No space-occupying hematoma. Prior hysterectomy. Colonic diverticulosis. Vascular calcifications. On the right, there is a small inguinal region hernia containing fat and a small amount of fluid. IMPRESSION: 1. No acute fracture. 2. Degenerative changes. Dictated by Jan Whitt MD @ 09/04/2022 3:11:13 PM Please note that all CT scans at this facility use dose modulation, iterative reconstruction, and/or weight-based dosing when appropriate to reduce radiation dose to as low as reasonably achievable. Dictated by: Jan Whitt MD @ 09/04/2022 15:11:16 (Electronically Signed)
--- NOTE | 2022-09-04 14:21 | PC.NURSE ---
RBVO: rikki Cain METAL PATTERNMAKER APPRENTICE. CT scan right hip and pelvis d/t continued pain and recent fall. Daughter Alison updated and in agreement. Order placed and staff/resident updated.
--- NOTE | 2022-09-04 16:12 | PC.SPIRITC ---
Pattern Chain Maker Supervisor provided visit for support, connection, and life review.
[2022-09-04 18:00] VITALS: BP 107/66; PULSE 82; RESP 18; TEMP 37.4; O2SAT 94
--- NOTE | 2022-09-04 18:46 | PC.NURSE ---
Updated Genesis Cain SENIOR PENSIONS ADMINISTRATOR on finding from CT scan: No acute fracture. Degenerative changes. Daughter Alison also updated of results. No concerns/questions at this time.
[2022-09-04] MEDS: MELATONIN 3 MG TABLET 5 MG PO (20:07)
[2022-09-04] MEDS: DONEPEZIL 5 MG TABLET PO (20:07)
[2022-09-04 22:00] VITALS: BP 116/63; PULSE 72; RESP 18; TEMP 36.7; O2SAT 96
--- NOTE | 2022-09-04 22:10 | PC.NURSE ---
Fall F/U: Resident VSS below. ROM WNL. Resident c/o hip pain 3-01/27. Was given Tylenol 650mg PRN @ 20:07. Reassessment done and resident sleeping at this time. Vital Signs Temp Pulse Resp BP Pulse Ox O2 Del Method 09/04/22 18:00 99.4 F 82 18 107/66 94 Room Air 09/04/22 14:00 99.1 F 76 18 112/70 94 Room Air 09/04/22 10:35 97.4 F L 70 20 128/74 97 Room Air
--- NOTE | 2022-09-04 23:48 | PC.NURSE ---
FALL FOLLOW-UP: Vital signs: 98.1-72-18-116/63-96% on RA. No c/o pain at this time. Orientation per baseline. Neuros intact. PERRLA. Hand grasps equal. Denies headache, double vision, or nausea.
[2022-09-05 02:00] VITALS: BP 121/70; PULSE 76; RESP 20; TEMP 36.8; O2SAT 95
--- NOTE | 2022-09-05 02:20 | PC.NURSE ---
FALL FOLLOW-UP: Vital signs WNL. Neuros intact. Orientation per baseline. Hand grasps equal. Denies headache, visual concerns, nausea. Continues to c/o mild right hip pain. Declines any intervention at this time.
[2022-09-05 05:43] VITALS: BP 133/75; PULSE 73; RESP 18; TEMP 36.6; O2SAT 93
--- NOTE | 2022-09-05 06:30 | PC.NURSE ---
FALL FOLLOW-UP: Vital signs: 97.8-73-18-133/75-93% on RA. Orientation at baseline. Neuros intact. Hand grasps equal. Denies headache, blurred/double vision, or nausea. C/o mild right hip pain. Ice offered and declined.
[2022-09-05] MEDS: LEVOTHYROXINE 50 MCG TABLET PO (06:45)
[2022-09-05] MEDS: OMEPRAZOLE 20 MG CAPSULE DR PO (06:45)
[2022-09-05] MEDS: ACETAMINOPHEN 325 MG TABLET 650 MG PO ×3 (07:34→16:59)
[2022-09-05] MEDS: ASPIRIN 81 MG TABLET EC PO (07:34)
[2022-09-05] MEDS: METOPROLOL SUCCINATE (XL) 25 MG TAB PO (07:35)
[2022-09-05] MEDS: SPIRIVA HANDIHALER INH (07:35)
[2022-09-05] MEDS: SERTRALINE 100 MG TABLET 125 MG PO (07:35)
[2022-09-05 09:34] VITALS: BMI 21.0
[2022-09-05 10:00] VITALS: BP 162/82; PULSE 84; RESP 18; TEMP 36.4; O2SAT 95
--- NOTE | 2022-09-05 10:06 | PC.NURSE ---
Fall F/U: Vitals as follows: 162/84, P84, R18, T97.6, O2 95% on RA. SALLIE, hand grasps equal, ROM good. Has fading bruises on right shoulder, middle upper back and right side of head.
--- NOTE | 2022-09-05 13:14 | PC.NURSE ---
Fall F/U: Vitals: B/P 118/67, P70, R18, T98.3, O2 92%. SALLIE, hand grasps equal, ROM good. Denies any pain at this time
[2022-09-05 13:26] VITALS: BP 118/67; PULSE 70; RESP 18; TEMP 36.8; O2SAT 92
--- NOTE | 2022-09-05 13:53 | PC.NURSE ---
Recert Visit: Resident seen by . Orders reviewed and renewed of 45 days without changes.
[2022-09-05 17:00] VITALS: BP 144/90; PULSE 71; RESP 18; TEMP 37.1; O2SAT 91
[2022-09-05] MEDS: DONEPEZIL 5 MG TABLET PO (21:03)
[2022-09-05] MEDS: MELATONIN 3 MG TABLET 5 MG PO (21:03)
--- NOTE | 2022-09-05 22:00 | PC.NURSE ---
Fall F/U: VS and Neuros [id number] checks intervention completed. Resident denies any pain or discomfort. Rooming House Keeper observed bruise measuring 8cm to upper back. Resident reports bruise on back from recent fall.
--- NOTE | 2022-09-06 03:21 | PC.NURSE ---
Addendum entered by Jacki Forrester RN 09/06/22 04:16: NARs report resident pulled hair, kicked, and attempted to bite during toileting. Original Note: BEHAVIOR: Resident has been restless and calling out since approximately 0030. Had been toileted multiple times, repositioned, offered food and fluids. Declined acetaminophen when offered. All needs have been met and behavior continued. At approximately 0230 staff assisted resident to the toilet and out to the desk for safety. Has been yelling at staff, stating that we are devils. Stating that she wants to go home. Repeatedly yelling let me out or I'm gonna shit on you, you son of a bitch! Staff unable to redirect.
--- NOTE | 2022-09-06 05:29 | PC.NURSE ---
BEHAVIOR FOLLOW-UP: Resident began to calm down with much comfort/reassurance from staff. Stated she was hungry and requested and ate a bowl of Cheerios with milk. Was then assisted to toilet and back to bed at approximately 0415. Has been resting soundly since that time.
[2022-09-06] MEDS: LEVOTHYROXINE 50 MCG TABLET PO (06:47)
[2022-09-06] MEDS: OMEPRAZOLE 20 MG CAPSULE DR PO (06:47)
[2022-09-06] MEDS: SPIRIVA HANDIHALER INH (07:08)
[2022-09-06] MEDS: SERTRALINE 100 MG TABLET 125 MG PO (07:08)
[2022-09-06] MEDS: METOPROLOL SUCCINATE (XL) 25 MG TAB PO (07:08)
[2022-09-06] MEDS: ACETAMINOPHEN 325 MG TABLET 650 MG PO ×2 (07:08→15:06)
[2022-09-06] MEDS: ASPIRIN 81 MG TABLET EC PO (07:08)
--- NOTE | 2022-09-06 16:37 | PC.NURSE ---
New Oder: New written order from, ISAI Cain, was received via FAX at approximately, 1600. Order reads: Tramadol 50mg - take one tablet PO TID PRN for pain. Order has been fax to [facility].
--- NOTE | 2022-09-06 17:19 | PC.NURSE ---
Family Update: Residents daughter, Alison Pryor, was updated and informed about the new prescription of Tramadol to manage her mother's pain. She expressed concern about the medication as she indicated that her mom had UTI and acted goofy when she was on Tramadol when she resided in [facility]. She encouraged staff to monitored resident after receiving dose of Tramadol. Supervisor Pyrotechnic Loading will enter intervention to monitor for signs and symptoms of UTI as well as behavior concerns to be observed and or reported after administering Tramadol. MANUAL ARTS THERAPY TEACHER will be updated on this matter.
[2022-09-06] MEDS: MELATONIN 3 MG TABLET 5 MG PO (19:22)
[2022-09-06] MEDS: DONEPEZIL 5 MG TABLET PO (19:22)
[2022-09-07] MEDS: LEVOTHYROXINE 50 MCG TABLET PO (07:27)
[2022-09-07] MEDS: ACETAMINOPHEN 325 MG TABLET 650 MG PO ×2 (07:27→17:02)
[2022-09-07] MEDS: ASPIRIN 81 MG TABLET EC PO (07:27)
[2022-09-07] MEDS: OMEPRAZOLE 20 MG CAPSULE DR PO (07:27)
[2022-09-07] MEDS: SPIRIVA HANDIHALER INH (07:28)
[2022-09-07] MEDS: METOPROLOL SUCCINATE (XL) 25 MG TAB PO (07:28)
[2022-09-07] MEDS: SERTRALINE 100 MG TABLET 125 MG PO (07:28)
[2022-09-07] MEDS: MELATONIN 3 MG TABLET 5 MG PO (20:33)
[2022-09-07] MEDS: DONEPEZIL 5 MG TABLET PO (20:33)
[2022-09-08] MEDS: OMEPRAZOLE 20 MG CAPSULE DR PO (07:36)
[2022-09-08] MEDS: ACETAMINOPHEN 325 MG TABLET 650 MG PO ×2 (07:36→15:12)
[2022-09-08] MEDS: LEVOTHYROXINE 50 MCG TABLET PO (07:36)
[2022-09-08] MEDS: SPIRIVA HANDIHALER INH (07:36)
[2022-09-08] MEDS: METOPROLOL SUCCINATE (XL) 25 MG TAB PO (07:36)
[2022-09-08] MEDS: ASPIRIN 81 MG TABLET EC PO (07:36)
[2022-09-08] MEDS: SERTRALINE 100 MG TABLET 125 MG PO (07:37)
[2022-09-08] MEDS: DONEPEZIL 5 MG TABLET PO (19:25)
[2022-09-08] MEDS: MELATONIN 3 MG TABLET 5 MG PO (19:25)
[2022-09-08] MEDS: LORazepam 0.5 MG TABLET PO (23:54)
[2022-09-09] MEDS: OMEPRAZOLE 20 MG CAPSULE DR PO (06:54)
[2022-09-09] MEDS: LEVOTHYROXINE 50 MCG TABLET PO (06:54)
[2022-09-09] MEDS: METOPROLOL SUCCINATE (XL) 25 MG TAB PO (07:27)
[2022-09-09] MEDS: ACETAMINOPHEN 325 MG TABLET 650 MG PO ×2 (07:27→15:47)
[2022-09-09] MEDS: SPIRIVA HANDIHALER INH (07:27)
[2022-09-09] MEDS: ASPIRIN 81 MG TABLET EC PO (07:27)
[2022-09-09] MEDS: SERTRALINE 100 MG TABLET 125 MG PO (07:27)
[2022-09-09] MEDS: TRAMADOL HCL 50 MG TABLET PO (18:45)
[2022-09-09] MEDS: DONEPEZIL 5 MG TABLET PO (19:12)
[2022-09-09] MEDS: MELATONIN 3 MG TABLET 5 MG PO (19:12)
[2022-09-09] MEDS: LORazepam 0.5 MG TABLET PO (23:30)
--- NOTE | 2022-09-10 01:11 | PC.NURSE ---
Behavior: Resident was in bed repeatedly calling out and wanting to go home. Had been toileted, snack and fluid offered, repositioned, and 1:1 without effect. No physical or verbal aggression from resident. PRN lorazepam administered per order at 2330. PRN administration was somewhat effective. Resident is no longer calling out, but remains awake. Television offered and declined.
--- NOTE | 2022-09-10 02:53 | PC.NURSE ---
WEEKLY CHARTING - WEEK 4: Vital signs reviewed with no concerns. Temporary and comprehensive care plan reviewed with no changes. Several documented behaviors in the last month. Currently receives lorazepam 0.5mg PO at HS PRN. Has been utilized x15 in the last month. Also receives sertraline 125mg daily and melatonin 5mg at HS with no noted adverse effects. Resident is able to communicate needs verbally. Difficulty with recalling words at times. Usually understands. Has moderate hearing impairment. Able to understand when words are spoken distinctly. No visual impairment. Orientation and cognition is impaired a/e/b BIMS score of 10. Staff anticipate needs.
[2022-09-10] MEDS: OMEPRAZOLE 20 MG CAPSULE DR PO (06:53)
[2022-09-10] MEDS: LEVOTHYROXINE 50 MCG TABLET PO (06:53)
[2022-09-10] MEDS: ASPIRIN 81 MG TABLET EC PO (07:01)
[2022-09-10] MEDS: METOPROLOL SUCCINATE (XL) 25 MG TAB PO (07:01)
[2022-09-10] MEDS: SPIRIVA HANDIHALER INH (07:01)
[2022-09-10] MEDS: SERTRALINE 100 MG TABLET 125 MG PO (07:01)
[2022-09-10] MEDS: ACETAMINOPHEN 325 MG TABLET 650 MG PO ×2 (07:01→15:08)
--- NOTE | 2022-09-10 10:34 | PC.NURSE ---
Week #4: Care plan reviewed, updated. Resident wears bilateral hearing aids. Nothing added to temporary care plan. No changes noted in communication, hearing, vision, or orientation. Resident is usually able to communicate needs and use the call light. Needs also anticipated by staff. Wears glasses for vision impairment. Has hearing difficulty, wears bilateral hearing aids. Chronic health condition stable. Memory/cognition is impaired r/t dementia. Is not able to self administer medications. Vital signs reviewed with no concerns. Mood/Behavior: Has sun downing. 08/29/22 Zoloft increased to 125 mg daily. Continues on Ativan 0.5 mg QHS PRN & is usually effective. Refer to UNIFIED COMMUNICATIONS ENGINEER/MD when needed.
--- NOTE | 2022-09-10 11:32 | PC.NURSE ---
Status/Order: CLOTH PATTERN MAKER, Ant here. Updated of increase sun downing. Order: Remeron 7.5 mg at HS.
--- NOTE | 2022-09-10 12:29 | PC.NURSE ---
Skin/Order: Coccyx wound assessed by COMPUTER APPLICATION DEVELOPER. Treatment: Cleanse with wound cleanser, Apply Mepilex, Change ever 3 days.
--- NOTE | 2022-09-10 14:51 | PC.SPIRITC ---
Amberly expressed she was having a bad day and was feeling confused. Assembler Filters support and calm along with prayer.
[2022-09-10] MEDS: TRAMADOL HCL 50 MG TABLET PO (19:16)
[2022-09-10] MEDS: DONEPEZIL 5 MG TABLET PO (19:16)
[2022-09-10] MEDS: MELATONIN 3 MG TABLET 5 MG PO (19:16)
[2022-09-10] MEDS: MIRTAZAPINE 15 MG TABLET 7.5 MG PO (19:16)
--- NOTE | 2022-09-10 21:11 | PC.NURSE ---
Behaviors: Resident quick to agitation and, argumentative with staff. Was able to redirect for a short period of time but, was confused and agitated again shortly after.
--- NOTE | 2022-09-11 04:08 | PC.NURSE ---
Has been sleeping soundly through the night. Has not activated bed alarm. No calling out. Staff have assisted resident with toileting and resident has been able to easily fall back asleep. Mirtazapine appears to be beneficial.
[2022-09-11] MEDS: TRAMADOL HCL 50 MG TABLET PO ×2 (04:49→18:50)
[2022-09-11] MEDS: RISEDRONATE 35 MG PO (05:26)
--- NOTE | 2022-09-11 05:44 | PC.NURSE ---
PAIN: Structures Technician was assisting resident with toileting and resident c/o right hip pain. Stated, I hurt so bad I could just cry. Resident was guarding hip and grimacing. PRN tramadol administered at 0449. PRN administration was effective. Resident has been resting peacefully.
[2022-09-11] MEDS: OMEPRAZOLE 20 MG CAPSULE DR PO (07:59)
[2022-09-11] MEDS: LEVOTHYROXINE 50 MCG TABLET PO (07:59)
[2022-09-11] MEDS: ACETAMINOPHEN 325 MG TABLET 650 MG PO ×2 (08:01→15:51)
[2022-09-11] MEDS: METOPROLOL SUCCINATE (XL) 25 MG TAB PO (08:02)
[2022-09-11] MEDS: ASPIRIN 81 MG TABLET EC PO (08:02)
[2022-09-11] MEDS: SERTRALINE 100 MG TABLET 125 MG PO (08:02)
[2022-09-11] MEDS: SPIRIVA HANDIHALER INH (08:03)
--- NOTE | 2022-09-11 10:30 | PC.NURSE ---
Remeron use: Spoke to daughter today in regards to the start of Remeron for anxiety at night. Daughter is in agreement at this time and understood the consent form and side effects associated with Remeron medication. Staff will continue to monitor for anxiety and side effects daily. Residents daughter stated she came to visit today and resident seemed more tired than she had. Advised that resident was anxious last evening and had pain during the night. The daughter felt that at this time she might be anxious because the daughter hadn't come to visit in the past couple days. Education given on dementia and how resident has good/bad moments. No further questions/concerns at this time from daughter.
--- NOTE | 2022-09-11 12:38 | PC.PHA ---
Medication Review ~ Medication Monitoring:Lorazepam, mirtazapine, setraline Comments: Lorazepam 0.5 mg po hs prn with increased need since admission, mirtazapine recently added at HS in response to increase prn lorazepam need. Sertraline dose increased 08/30/22 from 100 mg to 125 mg and patient recently told she is happy here (see note in EMR from 09/05/22). Suggested Course: Remeron started for sleep therefore stop prn Lorazepam. Recent sertraline dose increase therefore GDR clinically contraindicated this review. Other medications reviewed: Tramadol prn order started 09/06/22 and needed almost daily in addition to acetaminophen 650 mg bid. Continue this course but consider increasing acetaminophen scheduled dose to 650 mg for increased tramadol requirements.
--- NOTE | 2022-09-11 13:00 | PC.PHA ---
Medication Review~ Medication Monitoring: Lorazepam, mirtazapine, sertraline Comments: Patient admitted with prn lorazepam order and need was low until recently and therefore mirtazapine at hs started. Sertraline recently increased from 100 mg to 125 mg (now in August). Suggested Course: Stop lorazepam given recent order for scheduled mirtazapine at hs. Sertraline GDP clinically contraindicated with recent dose increase and positive patient response (see MD note from 09/05/22) Other medications reviewed. Tramadol prn recently started 09/06/22 and needed almost daily in addition to acetaminophen 650 mg bid. No recommendations at this time on pain med. regimen will need time to track trends in use.
--- NOTE | 2022-09-11 13:13 | PC.PHA ---
Addendum entered by Marleny Ortega 09/11/22 14:17: Disregard this note and see previous this note due to Expanse issue reported to help desk. Original Note: Medication Review~ Medication Monitoring:
[2022-09-11] MEDS: MIRTAZAPINE 15 MG TABLET 7.5 MG PO (20:08)
[2022-09-11] MEDS: MELATONIN 3 MG TABLET 5 MG PO (20:08)
[2022-09-11] MEDS: DONEPEZIL 5 MG TABLET PO (20:08)
--- NOTE | 2022-09-11 22:04 | PC.NURSE ---
Resident has increased pain in right hip/leg with ambulation. Very weak when toileting and pivoting to stand. Attempted twice to stand and stated, I'm so weak and my leg hurts. Staff used ezstand for remainder of shift. Was given warm towel and Tramadol PRN @ 18:50. Provided some relief upon reassessment.
[2022-09-12] MEDS: TRAMADOL HCL 50 MG TABLET PO ×2 (06:55→19:39)
[2022-09-12] MEDS: OMEPRAZOLE 20 MG CAPSULE DR PO (06:57)
[2022-09-12] MEDS: LEVOTHYROXINE 50 MCG TABLET PO (06:58)
[2022-09-12] MEDS: ASPIRIN 81 MG TABLET EC PO (07:07)
[2022-09-12] MEDS: ACETAMINOPHEN 325 MG TABLET 650 MG PO ×2 (07:07→16:13)
[2022-09-12] MEDS: METOPROLOL SUCCINATE (XL) 25 MG TAB PO (07:07)
[2022-09-12] MEDS: SPIRIVA HANDIHALER INH (07:08)
[2022-09-12] MEDS: SERTRALINE 100 MG TABLET 125 MG PO (07:08)
[2022-09-12 09:43] VITALS: BP 123/70; PULSE 80; RESP 18; TEMP 36.7; O2SAT 92; BMI 21.0
[2022-09-12] MEDS: MELATONIN 3 MG TABLET 5 MG PO (19:39)
[2022-09-12] MEDS: MIRTAZAPINE 15 MG TABLET 7.5 MG PO (19:39)
[2022-09-12] MEDS: DONEPEZIL 5 MG TABLET PO (19:39)
[2022-09-13] MEDS: LEVOTHYROXINE 50 MCG TABLET PO (07:50)
[2022-09-13] MEDS: ACETAMINOPHEN 325 MG TABLET 650 MG PO ×2 (07:50→15:09)
[2022-09-13] MEDS: ASPIRIN 81 MG TABLET EC PO (07:50)
[2022-09-13] MEDS: OMEPRAZOLE 20 MG CAPSULE DR PO (07:50)
[2022-09-13] MEDS: SPIRIVA HANDIHALER INH (07:51)
[2022-09-13] MEDS: METOPROLOL SUCCINATE (XL) 25 MG TAB PO (07:51)
[2022-09-13] MEDS: SERTRALINE 100 MG TABLET 125 MG PO (07:52)
[2022-09-13] MEDS: TRAMADOL HCL 50 MG TABLET PO (15:21)
[2022-09-13] MEDS: DONEPEZIL 5 MG TABLET PO (20:19)
[2022-09-13] MEDS: MIRTAZAPINE 15 MG TABLET 7.5 MG PO (20:19)
[2022-09-13] MEDS: MELATONIN 3 MG TABLET 5 MG PO (20:19)
--- NOTE | 2022-09-13 22:04 | PC.NURSE ---
Resident c/o right hip pain with a rating of 9/10. Was given Tramadol 50mg PRN @ 1521. Offered ice and heat but resident has declined both. Told underwriter solicitation director that she has attempted these interventions with no relief. Upon reassessment resident very agitated and stated, My hip and leg still hurts. I don't think the doctor's are treating me the right way. Signal Inspector provided reassurance.
[2022-09-14] MEDS: OMEPRAZOLE 20 MG CAPSULE DR PO (07:15)
[2022-09-14] MEDS: LEVOTHYROXINE 50 MCG TABLET PO (07:15)
[2022-09-14] MEDS: ACETAMINOPHEN 325 MG TABLET 650 MG PO ×2 (07:45→15:02)
[2022-09-14] MEDS: ASPIRIN 81 MG TABLET EC PO (07:45)
[2022-09-14] MEDS: SERTRALINE 100 MG TABLET 125 MG PO (07:46)
[2022-09-14] MEDS: SPIRIVA HANDIHALER INH (07:46)
[2022-09-14] MEDS: METOPROLOL SUCCINATE (XL) 25 MG TAB PO (07:46)
[2022-09-14] MEDS: MIRTAZAPINE 15 MG TABLET 7.5 MG PO (19:18)
[2022-09-14] MEDS: DONEPEZIL 5 MG TABLET PO (19:18)
[2022-09-14] MEDS: TRAMADOL HCL 50 MG TABLET PO (19:18)
[2022-09-14] MEDS: MELATONIN 3 MG TABLET 5 MG PO (19:18)
--- NOTE | 2022-09-14 22:04 | PC.NURSE ---
Res. c/o hip pain. States it hurts when she is up and moving. Was given Tramadol 50mg PRN at 1918 prior to getting pajamas and ready for bed. Provided relief but states pain is still residual.
[2022-09-15] MEDS: OMEPRAZOLE 20 MG CAPSULE DR PO (06:55)
[2022-09-15] MEDS: LEVOTHYROXINE 50 MCG TABLET PO (06:55)
[2022-09-15] MEDS: METOPROLOL SUCCINATE (XL) 25 MG TAB PO (07:40)
[2022-09-15] MEDS: ASPIRIN 81 MG TABLET EC PO (07:40)
[2022-09-15] MEDS: ACETAMINOPHEN 325 MG TABLET 650 MG PO ×2 (07:40→15:06)
[2022-09-15] MEDS: SERTRALINE 100 MG TABLET 125 MG PO (07:41)
[2022-09-15] MEDS: SPIRIVA HANDIHALER INH (07:41)
--- NOTE | 2022-09-15 10:35 | PC.NURSE ---
Status: Has been noted the last 3 days about 1pm resident has an increase in anxiety, becomes very confused. Needs 1:1 staff attention Note left for ADDRESS CHANGE CLERK
[2022-09-15] MEDS: TRAMADOL HCL 50 MG TABLET PO ×2 (12:37→18:21)
[2022-09-15] MEDS: MELATONIN 3 MG TABLET 5 MG PO (20:20)
[2022-09-15] MEDS: DONEPEZIL 5 MG TABLET PO (20:20)
[2022-09-15] MEDS: MIRTAZAPINE 15 MG TABLET 7.5 MG PO (20:20)
--- NOTE | 2022-09-15 21:40 | PC.NURSE ---
Resident anxious this afternoon. Self-propelling in w/c asking, Do I go through these double doors to get to my car? Also stating, I need to call my mom and dad. They don't know where I am. Staff provided reassurance that she is in a safe place and her children know where she is. Was toileted at this time. Is calm in the dining room waiting for supper. C/o hip pain and became agitated and states, The doctor's aren't doing anything for my hip. Am I just going to be in pain, I can't go on like this. Was given Tramadol PRN @ 1821 and warm towel. Requested to lie down and rest. Resident sleeping at this time upon reassessment. No further c/o pain or agitation.
[2022-09-15] MEDS: LORazepam 0.5 MG TABLET PO (22:33)
[2022-09-16] MEDS: LEVOTHYROXINE 50 MCG TABLET PO (06:49)
[2022-09-16] MEDS: OMEPRAZOLE 20 MG CAPSULE DR PO (06:49)
[2022-09-16] MEDS: ACETAMINOPHEN 325 MG TABLET 650 MG PO ×2 (07:14→15:39)
[2022-09-16] MEDS: SPIRIVA HANDIHALER INH (07:15)
[2022-09-16] MEDS: ASPIRIN 81 MG TABLET EC PO (07:15)
[2022-09-16] MEDS: METOPROLOL SUCCINATE (XL) 25 MG TAB PO (07:15)
[2022-09-16] MEDS: SERTRALINE 100 MG TABLET 125 MG PO (07:16)
[2022-09-16] MEDS: DONEPEZIL 5 MG TABLET PO (19:43)
[2022-09-16] MEDS: MELATONIN 3 MG TABLET 5 MG PO (19:43)
[2022-09-16] MEDS: MIRTAZAPINE 15 MG TABLET 7.5 MG PO (19:43)
[2022-09-16] MEDS: guaiFENesin 100 MG/ML CUP PO (20:54)
[2022-09-17] MEDS: TRAMADOL HCL 50 MG TABLET PO ×2 (02:11→19:48)
[2022-09-17] MEDS: LEVOTHYROXINE 50 MCG TABLET PO (06:55)
[2022-09-17] MEDS: OMEPRAZOLE 20 MG CAPSULE DR PO (06:55)
[2022-09-17] MEDS: ACETAMINOPHEN 325 MG TABLET 650 MG PO ×2 (07:03→16:32)
[2022-09-17] MEDS: SPIRIVA HANDIHALER INH (07:04)
[2022-09-17] MEDS: SERTRALINE 100 MG TABLET 125 MG PO (07:04)
[2022-09-17] MEDS: ASPIRIN 81 MG TABLET EC PO (07:04)
[2022-09-17] MEDS: METOPROLOL SUCCINATE (XL) 25 MG TAB PO (07:04)
--- NOTE | 2022-09-17 10:12 | PC.NURSE ---
Order: Discontinue Ativan 0.5 mg HS PRN by Ant ALEX.
[2022-09-17] MEDS: MELATONIN 3 MG TABLET 5 MG PO (19:13)
[2022-09-17] MEDS: DONEPEZIL 5 MG TABLET PO (19:13)
[2022-09-17] MEDS: MIRTAZAPINE 15 MG TABLET 7.5 MG PO (19:13)
[2022-09-18] MEDS: RISEDRONATE 35 MG PO (05:01)
[2022-09-18] MEDS: OMEPRAZOLE 20 MG CAPSULE DR PO (06:37)
[2022-09-18] MEDS: LEVOTHYROXINE 50 MCG TABLET PO (06:37)
[2022-09-18] MEDS: ASPIRIN 81 MG TABLET EC PO (07:53)
[2022-09-18] MEDS: ACETAMINOPHEN 325 MG TABLET 650 MG PO ×2 (07:53→15:50)
[2022-09-18] MEDS: METOPROLOL SUCCINATE (XL) 25 MG TAB PO (07:53)
[2022-09-18] MEDS: SPIRIVA HANDIHALER INH (07:53)
[2022-09-18] MEDS: SERTRALINE 100 MG TABLET 125 MG PO (07:54)
[2022-09-18] MEDS: MAGNESIUM HYDROXIDE 30 ML ORAL.SUSP PO (10:41)
--- NOTE | 2022-09-18 16:27 | PC.SPIRITC ---
I provided visit for support, connection, and comfort.
[2022-09-18] MEDS: TRAMADOL HCL 50 MG TABLET PO (19:01)
[2022-09-18] MEDS: MIRTAZAPINE 15 MG TABLET 7.5 MG PO (19:01)
[2022-09-18] MEDS: DONEPEZIL 5 MG TABLET PO (19:01)
[2022-09-18] MEDS: MELATONIN 3 MG TABLET 5 MG PO (19:01)
--- NOTE | 2022-09-18 21:42 | PC.NURSE ---
Resident c/o right hip pain. States it hurts more when she is up moving and walking. Was up ambulating to toilet and getting pajamas on. Lead Business Analyst administered Tramadol 50mg PRN @ 1901. Resident also given warm towel after getting into bed. Resident sleeping upon reassessment.
[2022-09-19] MEDS: TRAMADOL HCL 50 MG TABLET PO (03:00)
--- NOTE | 2022-09-19 04:09 | PC.NURSE ---
PAIN: Resident was up to the toilet with assist and c/o right hip pain. Declined ice pack. PRN tramadol administered per order at 0300. Anministration was effective. No further c/o pain. Sleeping well at this time.
[2022-09-19] MEDS: OMEPRAZOLE 20 MG CAPSULE DR PO (07:24)
[2022-09-19] MEDS: LEVOTHYROXINE 50 MCG TABLET PO (07:24)
[2022-09-19] MEDS: ACETAMINOPHEN 325 MG TABLET 650 MG PO ×2 (07:24→15:36)
[2022-09-19] MEDS: METOPROLOL SUCCINATE (XL) 25 MG TAB PO (07:25)
[2022-09-19] MEDS: ASPIRIN 81 MG TABLET EC PO (07:25)
[2022-09-19] MEDS: SPIRIVA HANDIHALER INH (07:25)
[2022-09-19] MEDS: SERTRALINE 100 MG TABLET 125 MG PO (07:25)
[2022-09-19 09:40] VITALS: BMI 21.2
[2022-09-19 09:42] VITALS: BP 142/76; PULSE 82; RESP 18; TEMP 36.6; O2SAT 94
[2022-09-19] MEDS: MELATONIN 3 MG TABLET 5 MG PO (19:11)
[2022-09-19] MEDS: DONEPEZIL 5 MG TABLET PO (19:11)
[2022-09-19] MEDS: MIRTAZAPINE 15 MG TABLET 7.5 MG PO (19:13)
[2022-09-20] MEDS: OMEPRAZOLE 20 MG CAPSULE DR PO (07:21)
[2022-09-20] MEDS: LEVOTHYROXINE 50 MCG TABLET PO (07:21)
[2022-09-20] MEDS: ASPIRIN 81 MG TABLET EC PO (07:21)
[2022-09-20] MEDS: ACETAMINOPHEN 325 MG TABLET 650 MG PO ×2 (07:21→15:19)
[2022-09-20] MEDS: NON-FORMULARY MEDICATION INH (07:22)
[2022-09-20] MEDS: METOPROLOL SUCCINATE (XL) 25 MG TAB PO (07:22)
[2022-09-20] MEDS: SERTRALINE 100 MG TABLET 125 MG PO (07:23)
[2022-09-20] MEDS: TRAMADOL HCL 50 MG TABLET PO (14:41)
[2022-09-20] MEDS: MIRTAZAPINE 15 MG TABLET 7.5 MG PO (19:21)
[2022-09-20] MEDS: MELATONIN 3 MG TABLET 5 MG PO (19:21)
[2022-09-20] MEDS: DONEPEZIL 5 MG TABLET PO (19:21)
[2022-09-21] MEDS: TRAMADOL HCL 50 MG TABLET PO (01:02)
[2022-09-21] MEDS: OMEPRAZOLE 20 MG CAPSULE DR PO (08:01)
[2022-09-21] MEDS: LEVOTHYROXINE 50 MCG TABLET PO (08:01)
[2022-09-21] MEDS: ACETAMINOPHEN 325 MG TABLET 650 MG PO ×2 (08:03→15:47)
[2022-09-21] MEDS: ASPIRIN 81 MG TABLET EC PO (08:04)
[2022-09-21] MEDS: SERTRALINE 100 MG TABLET 125 MG PO (08:04)
[2022-09-21] MEDS: METOPROLOL SUCCINATE (XL) 25 MG TAB PO (08:04)
[2022-09-21] MEDS: NON-FORMULARY MEDICATION INH (08:04)
[2022-09-21] MEDS: DONEPEZIL 5 MG TABLET PO (20:17)
[2022-09-21] MEDS: MELATONIN 3 MG TABLET 5 MG PO (20:17)
[2022-09-21] MEDS: MIRTAZAPINE 15 MG TABLET 7.5 MG PO (20:17)
[2022-09-22] MEDS: LEVOTHYROXINE 50 MCG TABLET PO (07:47)
[2022-09-22] MEDS: OMEPRAZOLE 20 MG CAPSULE DR PO (07:47)
[2022-09-22] MEDS: ASPIRIN 81 MG TABLET EC PO (07:48)
[2022-09-22] MEDS: ACETAMINOPHEN 325 MG TABLET 650 MG PO ×2 (07:48→15:54)
[2022-09-22] MEDS: METOPROLOL SUCCINATE (XL) 25 MG TAB PO (07:48)
[2022-09-22] MEDS: SERTRALINE 100 MG TABLET 125 MG PO (07:49)
[2022-09-22] MEDS: NON-FORMULARY MEDICATION INH (07:49)
[2022-09-22] MEDS: MELATONIN 3 MG TABLET 5 MG PO (20:20)
[2022-09-22] MEDS: DONEPEZIL 5 MG TABLET PO (20:20)
[2022-09-22] MEDS: MIRTAZAPINE 15 MG TABLET 7.5 MG PO (20:21)
[2022-09-23] MEDS: TRAMADOL HCL 50 MG TABLET PO (03:48)
[2022-09-23] MEDS: ASPIRIN 81 MG TABLET EC PO (07:00)
[2022-09-23] MEDS: ACETAMINOPHEN 325 MG TABLET 650 MG PO ×2 (07:00→17:18)
[2022-09-23] MEDS: OMEPRAZOLE 20 MG CAPSULE DR PO (07:00)
[2022-09-23] MEDS: LEVOTHYROXINE 50 MCG TABLET PO (07:00)
[2022-09-23] MEDS: METOPROLOL SUCCINATE (XL) 25 MG TAB PO (07:01)
[2022-09-23] MEDS: NON-FORMULARY MEDICATION INH (07:01)
[2022-09-23] MEDS: SERTRALINE 100 MG TABLET 125 MG PO (07:02)
[2022-09-23] MEDS: MELATONIN 3 MG TABLET 5 MG PO (19:46)
[2022-09-23] MEDS: MIRTAZAPINE 15 MG TABLET 7.5 MG PO (19:46)
[2022-09-23] MEDS: DONEPEZIL 5 MG TABLET PO (19:46)
--- NOTE | 2022-09-24 01:41 | PC.NURSE ---
WEEKLY CHARTING - WEEK 1: Vital signs reviewed with no concern. Temporary and comprehensive care plan reviewed - no change. Temporary and comprehensive care plan reviewed. Right hip pain added to care plan. Receives acetaminophen 650mg BID and tramadol 50mg TID PRN for pain management. Has utilized PRN tramadol x17 since order was obtained on 09/06. Current regimen is effective. 1 extensive assist for bathing. Staff encourage resident participation. Extensive assist of 1 for dressing. Limited to extensive assist with grooming tasks. On a regular diet with regular textures and thin liquids. Able to eat independently after set-up. Staff offer encouragement for oral intake and offer alternatives. Weight is stable over last 30 days.
[2022-09-24] MEDS: LEVOTHYROXINE 50 MCG TABLET PO (06:47)
[2022-09-24] MEDS: OMEPRAZOLE 20 MG CAPSULE DR PO (06:47)
--- NOTE | 2022-09-24 07:09 | PC.NURSE ---
Week #1: Care plan reviewed, no changes made. Nothing added to temporary care plan. Resident needs extensive assist with dressing and bathing. Limited to extensive assist with grooming. Encourage resident to participate as able. Does oral cares after staff set up. Staff assist/complete as needed. Independent with feeding after set up. Is on regular diet, thin liquids. No problems with chewing/swallowing noted. Vital signs reviewed. BP varies depending on status. Continue weekly monitoring and refer to PATROLLER when needed. Pain: Pain is managed with Tylenol 650mg BID & Ultram 50mg TID PRN ( started on 09/06). Has received Ultram PRN at least once/day with good relief. She can tell when in pain and staff also anticipates.
[2022-09-24] MEDS: METOPROLOL SUCCINATE (XL) 25 MG TAB PO (07:31)
[2022-09-24] MEDS: NON-FORMULARY MEDICATION INH (07:31)
[2022-09-24] MEDS: ACETAMINOPHEN 325 MG TABLET 650 MG PO ×2 (07:31→15:57)
[2022-09-24] MEDS: ASPIRIN 81 MG TABLET EC PO (07:31)
[2022-09-24] MEDS: SERTRALINE 100 MG TABLET 125 MG PO (07:31)
[2022-09-24] MEDS: MAGNESIUM HYDROXIDE 30 ML ORAL.SUSP PO (13:54)
[2022-09-24] MEDS: MELATONIN 3 MG TABLET 5 MG PO (19:14)
[2022-09-24] MEDS: MIRTAZAPINE 15 MG TABLET 7.5 MG PO (19:14)
[2022-09-24] MEDS: DONEPEZIL 5 MG TABLET PO (19:14)
[2022-09-25] MEDS: OMEPRAZOLE 20 MG CAPSULE DR PO (07:13)
[2022-09-25] MEDS: LEVOTHYROXINE 50 MCG TABLET PO (07:13)
[2022-09-25] MEDS: NON-FORMULARY MEDICATION INH (07:14)
[2022-09-25] MEDS: ACETAMINOPHEN 325 MG TABLET 650 MG PO ×2 (08:21→15:34)
[2022-09-25] MEDS: ASPIRIN 81 MG TABLET EC PO (08:22)
[2022-09-25] MEDS: METOPROLOL SUCCINATE (XL) 25 MG TAB PO (08:22)
[2022-09-25] MEDS: SERTRALINE 100 MG TABLET 125 MG PO (08:22)
[2022-09-25] MEDS: NON-FORMULARY MEDICATION PO (08:40)
--- NOTE | 2022-09-25 09:13 | PC.NURSE ---
Tramadol use follow up. Resident has been using Tramadol for pain PRN and has had no adverse effects. Her pain level is well managed with the Tramadol PRN order and she is noted to be sleeping better during the night.
[2022-09-25] MEDS: DONEPEZIL 5 MG TABLET PO (19:48)
[2022-09-25] MEDS: MELATONIN 3 MG TABLET 5 MG PO (19:48)
[2022-09-25] MEDS: MIRTAZAPINE 15 MG TABLET 7.5 MG PO (19:48)
[2022-09-26] MEDS: ASPIRIN 81 MG TABLET EC PO (07:17)
[2022-09-26] MEDS: LEVOTHYROXINE 50 MCG TABLET PO (07:17)
[2022-09-26] MEDS: METOPROLOL SUCCINATE (XL) 25 MG TAB PO (07:17)
[2022-09-26] MEDS: OMEPRAZOLE 20 MG CAPSULE DR PO (07:17)
[2022-09-26] MEDS: ACETAMINOPHEN 325 MG TABLET 650 MG PO ×2 (07:17→16:57)
[2022-09-26] MEDS: SERTRALINE 100 MG TABLET 125 MG PO (07:18)
[2022-09-26] MEDS: NON-FORMULARY MEDICATION INH (07:18)
[2022-09-26 11:17] VITALS: BP 120/65; PULSE 82; RESP 20; TEMP 36.3; O2SAT 95
[2022-09-26] MEDS: NYSTATIN CREAM 30 GM 1 APPLIC TOPICAL (13:50)
[2022-09-26] MEDS: MIRTAZAPINE 15 MG TABLET 7.5 MG PO (19:08)
[2022-09-26] MEDS: MELATONIN 3 MG TABLET 5 MG PO (19:08)
[2022-09-26] MEDS: DONEPEZIL 5 MG TABLET PO (19:08)
[2022-09-27] MEDS: NYSTATIN CREAM 30 GM 1 APPLIC TOPICAL (06:49)
[2022-09-27] MEDS: ACETAMINOPHEN 325 MG TABLET 650 MG PO ×2 (07:20→16:26)
[2022-09-27] MEDS: OMEPRAZOLE 20 MG CAPSULE DR PO (07:20)
[2022-09-27] MEDS: LEVOTHYROXINE 50 MCG TABLET PO (07:20)
[2022-09-27] MEDS: NON-FORMULARY MEDICATION INH (07:21)
[2022-09-27] MEDS: METOPROLOL SUCCINATE (XL) 25 MG TAB PO (07:21)
[2022-09-27] MEDS: ASPIRIN 81 MG TABLET EC PO (07:21)
[2022-09-27] MEDS: SERTRALINE 100 MG TABLET 125 MG PO (07:22)
--- NOTE | 2022-09-27 10:51 | NUTR.NU ---
Nutrition Update for High Risk: RDN with nutrition update related to pressure ulcer. Per nursing, pressure ulcer is improving - now a stage 2 pressure ulcer. No current meal intakes to assess. Current diet is Regular. Resident is receiving Edi BID daily; intakes have mainly been 75-100% within the past 2 weeks. Resident is also receiving supplement once daily; averaging ~70% intake within the past week. Supplements and Edi provide ~500 kcals and ~20 grams protein daily to help with wound healing and to meet estimated energy needs. Current weight 116 lbs; BMI is normal at 21.3 kg/m2. Weight has been stable within the last 30 days. No change in interventions at this time. RDN will continue to monitor and follow-up prn.
[2022-09-27] MEDS: DONEPEZIL 5 MG TABLET PO (19:55)
[2022-09-27] MEDS: MIRTAZAPINE 15 MG TABLET 7.5 MG PO (19:55)
[2022-09-27] MEDS: MELATONIN 3 MG TABLET 5 MG PO (19:55)
[2022-09-28] MEDS: TRAMADOL HCL 50 MG TABLET PO (01:05)
[2022-09-28] MEDS: NYSTATIN CREAM 30 GM 1 APPLIC TOPICAL ×2 (04:56→20:19)
[2022-09-28] MEDS: LEVOTHYROXINE 50 MCG TABLET PO (06:43)
[2022-09-28] MEDS: OMEPRAZOLE 20 MG CAPSULE DR PO (06:43)
[2022-09-28] MEDS: ASPIRIN 81 MG TABLET EC PO (08:00)
[2022-09-28] MEDS: METOPROLOL SUCCINATE (XL) 25 MG TAB PO (08:00)
[2022-09-28] MEDS: ACETAMINOPHEN 325 MG TABLET 650 MG PO ×2 (08:00→16:07)
[2022-09-28] MEDS: SERTRALINE 100 MG TABLET 125 MG PO (08:00)
[2022-09-28] MEDS: NON-FORMULARY MEDICATION INH (08:00)
[2022-09-28] MEDS: DONEPEZIL 5 MG TABLET PO (20:08)
[2022-09-28] MEDS: MELATONIN 3 MG TABLET 5 MG PO (20:08)
[2022-09-28] MEDS: MIRTAZAPINE 15 MG TABLET 7.5 MG PO (20:08)
--- NOTE | 2022-09-28 21:47 | PC.NURSE ---
Behavior: Resident is self transferring and, making negative statements about how nobody cares about her or what she has to say. Was able to calm resident down and put back in bed.
--- NOTE | 2022-09-29 04:16 | PC.NURSE ---
Self Transfer: Resident has been self -transferring herself 4 times during the night. Staff removed her walker to prevent self -transfer however resident walked across the room to get her wheel chair and self- transfer to the toilet. Resident was very rude asking us to mind our business when we tried to instruct her to use the call light.
[2022-09-29] MEDS: NYSTATIN CREAM 30 GM 1 APPLIC TOPICAL ×2 (07:20→19:42)
[2022-09-29] MEDS: OMEPRAZOLE 20 MG CAPSULE DR PO (07:32)
[2022-09-29] MEDS: ASPIRIN 81 MG TABLET EC PO (07:32)
[2022-09-29] MEDS: LEVOTHYROXINE 50 MCG TABLET PO (07:32)
[2022-09-29] MEDS: ACETAMINOPHEN 325 MG TABLET 650 MG PO ×2 (07:32→15:12)
[2022-09-29] MEDS: SERTRALINE 100 MG TABLET 125 MG PO (07:33)
[2022-09-29] MEDS: NON-FORMULARY MEDICATION INH (07:33)
[2022-09-29] MEDS: METOPROLOL SUCCINATE (XL) 25 MG TAB PO (07:33)
[2022-09-29] MEDS: MIRTAZAPINE 15 MG TABLET 7.5 MG PO (19:42)
[2022-09-29] MEDS: MELATONIN 3 MG TABLET 5 MG PO (19:42)
[2022-09-29] MEDS: DONEPEZIL 5 MG TABLET PO (19:42)
[2022-09-29] MEDS: TRAMADOL HCL 50 MG TABLET PO (23:03)
--- NOTE | 2022-09-29 23:39 | PC.NURSE ---
Patient was upset to staff, refused help , did self transfer going to the bathroom. Patient was trying hitting staff when approach. RN re approach and talked patient in calm manner, listen actively, acknowledge how she feel, re direct behavior, offered snack. She ate crispy rice and drink water. Patient verbalized her apology to staff how she acted. Offered PRN tramadol for pain.
[2022-09-30] MEDS: TRAMADOL HCL 50 MG TABLET PO (00:13)
[2022-09-30] MEDS: ASPIRIN 81 MG TABLET EC PO (07:08)
[2022-09-30] MEDS: LEVOTHYROXINE 50 MCG TABLET PO (07:08)
[2022-09-30] MEDS: ACETAMINOPHEN 325 MG TABLET 650 MG PO ×2 (07:08→16:03)
[2022-09-30] MEDS: METOPROLOL SUCCINATE (XL) 25 MG TAB PO (07:08)
[2022-09-30] MEDS: OMEPRAZOLE 20 MG CAPSULE DR PO (07:08)
[2022-09-30] MEDS: NON-FORMULARY MEDICATION INH (07:09)
[2022-09-30] MEDS: SERTRALINE 100 MG TABLET 125 MG PO (07:10)
[2022-09-30] MEDS: NYSTATIN CREAM 30 GM 1 APPLIC TOPICAL (19:30)
[2022-09-30] MEDS: MIRTAZAPINE 15 MG TABLET 7.5 MG PO (19:51)
[2022-09-30] MEDS: DONEPEZIL 5 MG TABLET PO (19:51)
[2022-09-30] MEDS: MELATONIN 3 MG TABLET 5 MG PO (19:51)
--- NOTE | 2022-09-30 21:12 | PC.NURSE ---
Near fall: Resident was self transferring to the bathroom when staff came to room, rfp writer and DARIN Crenshaw were able to catch her before she fell. No injury to resident.
--- NOTE | 2022-10-01 03:05 | PC.NURSE ---
WEEKLY CHARTING - WEEK 3 Resident vitals are normal, no concerns. Care plan will remain the same at this time. Toileting : resident is incontinent of bowel and bladder. Skin summary : no issues Resident is a fall risk patient, self transfer often, needs frequent checks. He does not exhibit any behaviors lately.
[2022-10-01] MEDS: LEVOTHYROXINE 50 MCG TABLET PO (06:51)
[2022-10-01] MEDS: OMEPRAZOLE 20 MG CAPSULE DR PO (06:51)
--- NOTE | 2022-10-01 06:54 | PC.NURSE ---
Week #2: Comprehensive care plan reviewed, no changes made. Nothing added to temporary care plan. Resident needs one assist, transfer belt, & walker with transfers and ambulation. Follow with wheelchair when walking as needed. Occasionally will self transfer and set off the alarm. Staff wheels to destinations. Staff to assist with T & R when in bed every 2 hours. Resident is able to grab rails to aid for positioning. Top side rails up to aid for bed mobility. Vital signs reviewed. Has some elevated BP's depending on resident status r/t anxiety. Continue VS monitoring every week. Fall: Had one fall on 09/02/22 with head strike while on toilet, sent to ED. Immediate intervention: not to be left alone on toilet, bed and chair alarm in place. Is a high fall risk according to assessment done on 08/07/22.
[2022-10-01] MEDS: ASPIRIN 81 MG TABLET EC PO (07:37)
[2022-10-01] MEDS: ACETAMINOPHEN 325 MG TABLET 650 MG PO ×2 (07:37→15:59)
[2022-10-01] MEDS: NON-FORMULARY MEDICATION INH (07:37)
[2022-10-01] MEDS: METOPROLOL SUCCINATE (XL) 25 MG TAB PO (07:37)
[2022-10-01] MEDS: SERTRALINE 100 MG TABLET 125 MG PO (07:38)
--- NOTE | 2022-10-01 10:05 | PC.NURSE ---
WOUND: chronic stage [address] [facility] on admission to care center. Wound assessed with investigative writer and RETAIL PHARMAC[employer] MERCHANDIS[facility] Genesis Cain. Skin at site is pink and warm. No Exudate. No pain. Resident smiling and laughing with staff during wound treatment being done. Measurements 0.1cm x 0.1cm. Pin point. No depth. Wound bed 100% granulation. Wound edges flush to the skin. Area around the wound pink in color. Tissue at wound site and around site healthy. No drainage. No odor. Cleansed area with wound cleanser and applied Mepilex 3 cm x 3 cm dressing. Current treatment to continue per [facility].
--- NOTE | 2022-10-01 11:28 | PC.NURSE ---
Recert Visit: Resident seen by BRANDING MACHINE TENDERAnt. Orders reviewed and renewed of 75 days with changes. Order: Discontinue Albuterol Neb BID PRN.
[2022-10-01] MEDS: DONEPEZIL 5 MG TABLET PO (19:16)
[2022-10-01] MEDS: MELATONIN 3 MG TABLET 5 MG PO (19:16)
[2022-10-01] MEDS: MIRTAZAPINE 15 MG TABLET 7.5 MG PO (19:16)
[2022-10-02] MEDS: NON-FORMULARY MEDICATION PO (05:17)
[2022-10-02] MEDS: LEVOTHYROXINE 50 MCG TABLET PO (06:53)
[2022-10-02] MEDS: OMEPRAZOLE 20 MG CAPSULE DR PO (06:53)
[2022-10-02] MEDS: NON-FORMULARY MEDICATION INH (07:56)
[2022-10-02] MEDS: SERTRALINE 100 MG TABLET 125 MG PO (07:56)
[2022-10-02] MEDS: METOPROLOL SUCCINATE (XL) 25 MG TAB PO (07:56)
[2022-10-02] MEDS: ASPIRIN 81 MG TABLET EC PO (07:56)
[2022-10-02] MEDS: ACETAMINOPHEN 325 MG TABLET 650 MG PO ×2 (07:56→16:18)
--- NOTE | 2022-10-02 14:14 | PC.PHA ---
MEDICATION REVIEW: MEDICATION MONITORING: Sertraline 125 mg, mirtazapine 7.5 mg hs, melatonin 5 mg hs continue, orders refreshed 09/19/22 in [facility] Metoprolol XL 25 mg daily, blood pressure history reviewed, scattered high readings no trends noted. acetaminophen scheduled for pain and prn tramadol, with need almost daily in September. IRREGULARITY OR COMMENTS: Tramadol prn needs have not been trending enough to offer scheduled regimen rec. at this time. Sertraline started in August, GDR not appropriate this review. Patient continues to have insomnia and therefore no GDR for mirtazapine or melatonin. SUGGESTED COURSE OF ACTION: No medication recommendations for September.
[2022-10-02] MEDS: MELATONIN 3 MG TABLET 5 MG PO (20:01)
[2022-10-02] MEDS: DONEPEZIL 5 MG TABLET PO (20:01)
[2022-10-02] MEDS: MIRTAZAPINE 15 MG TABLET 7.5 MG PO (20:01)
[2022-10-03] MEDS: TRAMADOL HCL 50 MG TABLET PO ×2 (01:29→19:43)
[2022-10-03] MEDS: OMEPRAZOLE 20 MG CAPSULE DR PO (07:06)
[2022-10-03] MEDS: ASPIRIN 81 MG TABLET EC PO (07:06)
[2022-10-03] MEDS: ACETAMINOPHEN 325 MG TABLET 650 MG PO ×2 (07:06→16:16)
[2022-10-03] MEDS: LEVOTHYROXINE 50 MCG TABLET PO (07:06)
[2022-10-03] MEDS: METOPROLOL SUCCINATE (XL) 25 MG TAB PO (07:07)
[2022-10-03] MEDS: SERTRALINE 100 MG TABLET 125 MG PO (07:08)
[2022-10-03] MEDS: NON-FORMULARY MEDICATION INH (07:08)
[2022-10-03 09:41] VITALS: BP 128/71; PULSE 74; RESP 18; TEMP 36.4; O2SAT 92; BMI 21.5
[2022-10-03] MEDS: MIRTAZAPINE 15 MG TABLET 7.5 MG PO (19:43)
[2022-10-03] MEDS: DONEPEZIL 5 MG TABLET PO (19:43)
[2022-10-03] MEDS: MELATONIN 3 MG TABLET 5 MG PO (19:43)
[2022-10-04] MEDS: OMEPRAZOLE 20 MG CAPSULE DR PO (06:51)
[2022-10-04] MEDS: LEVOTHYROXINE 50 MCG TABLET PO (06:51)
[2022-10-04] MEDS: SERTRALINE 100 MG TABLET 125 MG PO (08:02)
[2022-10-04] MEDS: ASPIRIN 81 MG TABLET EC PO (08:02)
[2022-10-04] MEDS: NON-FORMULARY MEDICATION INH (08:02)
[2022-10-04] MEDS: ACETAMINOPHEN 325 MG TABLET 650 MG PO ×2 (08:02→15:21)
[2022-10-04] MEDS: METOPROLOL SUCCINATE (XL) 25 MG TAB PO (08:02)
[2022-10-04] MEDS: DONEPEZIL 5 MG TABLET PO (19:19)
[2022-10-04] MEDS: MELATONIN 3 MG TABLET 5 MG PO (19:19)
[2022-10-04] MEDS: MIRTAZAPINE 15 MG TABLET 7.5 MG PO (19:19)
[2022-10-05] MEDS: LEVOTHYROXINE 50 MCG TABLET PO (07:38)
[2022-10-05] MEDS: OMEPRAZOLE 20 MG CAPSULE DR PO (07:38)
[2022-10-05] MEDS: METOPROLOL SUCCINATE (XL) 25 MG TAB PO (08:26)
[2022-10-05] MEDS: ASPIRIN 81 MG TABLET EC PO (08:26)
[2022-10-05] MEDS: ACETAMINOPHEN 325 MG TABLET 650 MG PO ×2 (08:26→15:40)
[2022-10-05] MEDS: NON-FORMULARY MEDICATION INH (08:26)
[2022-10-05] MEDS: SERTRALINE 100 MG TABLET 125 MG PO (08:26)
[2022-10-05] MEDS: MIRTAZAPINE 15 MG TABLET 7.5 MG PO (20:32)
[2022-10-05] MEDS: MELATONIN 3 MG TABLET 5 MG PO (20:32)
[2022-10-05] MEDS: DONEPEZIL 5 MG TABLET PO (20:32)
[2022-10-06] MEDS: LEVOTHYROXINE 50 MCG TABLET PO (06:44)
[2022-10-06] MEDS: OMEPRAZOLE 20 MG CAPSULE DR PO (06:44)
[2022-10-06] MEDS: ASPIRIN 81 MG TABLET EC PO (07:09)
[2022-10-06] MEDS: SERTRALINE 100 MG TABLET 125 MG PO (07:09)
[2022-10-06] MEDS: NON-FORMULARY MEDICATION INH (07:09)
[2022-10-06] MEDS: ACETAMINOPHEN 325 MG TABLET 650 MG PO ×2 (07:09→15:32)
[2022-10-06] MEDS: METOPROLOL SUCCINATE (XL) 25 MG TAB PO (07:09)
[2022-10-06] MEDS: DONEPEZIL 5 MG TABLET PO (19:37)
[2022-10-06] MEDS: MIRTAZAPINE 15 MG TABLET 7.5 MG PO (19:37)
[2022-10-06] MEDS: MELATONIN 3 MG TABLET 5 MG PO (19:37)
[2022-10-07] MEDS: TRAMADOL HCL 50 MG TABLET PO (00:03)
[2022-10-07] MEDS: ACETAMINOPHEN 325 MG TABLET 650 MG PO ×2 (07:17→16:05)
[2022-10-07] MEDS: LEVOTHYROXINE 50 MCG TABLET PO (07:17)
[2022-10-07] MEDS: OMEPRAZOLE 20 MG CAPSULE DR PO (07:17)
[2022-10-07] MEDS: METOPROLOL SUCCINATE (XL) 25 MG TAB PO (07:18)
[2022-10-07] MEDS: ASPIRIN 81 MG TABLET EC PO (07:18)
[2022-10-07] MEDS: NON-FORMULARY MEDICATION INH (07:18)
[2022-10-07] MEDS: SERTRALINE 100 MG TABLET 125 MG PO (07:18)
[2022-10-07] MEDS: DONEPEZIL 5 MG TABLET PO (19:15)
[2022-10-07] MEDS: MIRTAZAPINE 15 MG TABLET 7.5 MG PO (19:15)
[2022-10-07] MEDS: MELATONIN 3 MG TABLET 5 MG PO (19:15)
--- NOTE | 2022-10-08 00:37 | PC.NURSE ---
WEEKLY CHARTING - WEEK 3: Vital signs reviewed with no concerns. Temporary and comprehensive care plan reviewed - no change. Currently has stage 3 pressure ulcer to coccyx. Is cleaned with wound grain cleaner and Mepilex applied Q3 days and PRN if loose or soiled. No other documented skin integrity concerns. Incontinent of urine with continent episodes. Primarily continent of bowels. Will occasionally start going before reaching the toilet. Wears medium pull-up. Requires assist of 1 for transfers ans ambulation to and from the toilet, farhan-cares, and clothing adjustment.
[2022-10-08] MEDS: LEVOTHYROXINE 50 MCG TABLET PO (06:38)
[2022-10-08] MEDS: OMEPRAZOLE 20 MG CAPSULE DR PO (06:38)
--- NOTE | 2022-10-08 07:09 | PC.NURSE ---
Week #3 - Toileting: Comprehensive care plan reviewed, no changes made. Nothing added to temporary care plan. Resident is mostly continent of bowels, frequently incontinent of bladder with some control. Needs extensive assist of one with toileting. Staff to check every 2 hours and assist as needed. . Will also put the call light if need to go to the toilet. Transfers and ambulates to the bathroom wit gait belt, walker and assist. Wears medium pull up. Pads, farhan cares, clothing adjustment done by staff. Vital signs reviewed, no concerns. Skin: Has a stage 3 pressure sore on the coccyx that is healing. Wound is cleansed with a wound cleanser, covered wit Mepilex, changed EOD & PRN. Skin is routinely checked during cares and on bath day.
[2022-10-08] MEDS: NON-FORMULARY MEDICATION INH (07:38)
[2022-10-08] MEDS: METOPROLOL SUCCINATE (XL) 25 MG TAB PO (07:38)
[2022-10-08] MEDS: ASPIRIN 81 MG TABLET EC PO (07:38)
[2022-10-08] MEDS: ACETAMINOPHEN 325 MG TABLET 650 MG PO ×2 (07:38→15:38)
[2022-10-08] MEDS: SERTRALINE 100 MG TABLET 125 MG PO (07:39)
--- NOTE | 2022-10-08 12:52 | PC.NURSE ---
Wound: Stage 3 coccyx wound healed. Apply barrier cream BID.
--- NOTE | 2022-10-08 13:15 | PC.NURSE ---
Wound: Coccyx: Healed. No further treatment needed. FOLDER SEAMER AUTOMATIC and chart writer assessed.
[2022-10-08] MEDS: MELATONIN 3 MG TABLET 5 MG PO (19:25)
[2022-10-08] MEDS: DONEPEZIL 5 MG TABLET PO (19:25)
[2022-10-08] MEDS: MIRTAZAPINE 15 MG TABLET 7.5 MG PO (19:25)
--- NOTE | 2022-10-08 21:27 | PC.NURSE ---
Nausea: Resident complained of nausea at 2114, was given a emesis bag and a pool cj, no emesis noted.
[2022-10-09 04:57] VITALS: BP 136/69; PULSE 66; RESP 20; TEMP 36.5; O2SAT 94
--- NOTE | 2022-10-09 05:00 | PC.NURSE ---
Resident continued to c/o nausea into the night. Did not have emesis. Was then up to the toilet and had large bowel movement. Reported feeling better after BM. Vital signs: 97.7-66-20-136/69-94% on RA.
[2022-10-09] MEDS: NON-FORMULARY MEDICATION PO (06:52)
[2022-10-09] MEDS: OMEPRAZOLE 20 MG CAPSULE DR PO (06:52)
[2022-10-09] MEDS: LEVOTHYROXINE 50 MCG TABLET PO (06:52)
[2022-10-09] MEDS: METOPROLOL SUCCINATE (XL) 25 MG TAB PO (07:03)
[2022-10-09] MEDS: NON-FORMULARY MEDICATION INH (07:03)
[2022-10-09] MEDS: ACETAMINOPHEN 325 MG TABLET 650 MG PO ×2 (07:03→15:34)
[2022-10-09] MEDS: ASPIRIN 81 MG TABLET EC PO (07:03)
[2022-10-09] MEDS: SERTRALINE 100 MG TABLET 125 MG PO (07:04)
--- NOTE | 2022-10-09 11:58 | PC.SPIRITC ---
Amberly repeatedly expressed her appreciation for the holiday constitution party yesterday along with coping with not remembering [facility]. Ladies Locker Room Attendant provided visit for support and connection.
[2022-10-09] MEDS: MELATONIN 3 MG TABLET 5 MG PO (19:18)
[2022-10-09] MEDS: MIRTAZAPINE 15 MG TABLET 7.5 MG PO (19:18)
[2022-10-09] MEDS: DONEPEZIL 5 MG TABLET PO (19:18)
[2022-10-10] MEDS: METOPROLOL SUCCINATE (XL) 25 MG TAB PO (07:03)
[2022-10-10] MEDS: ACETAMINOPHEN 325 MG TABLET 650 MG PO ×2 (07:03→15:47)
[2022-10-10] MEDS: OMEPRAZOLE 20 MG CAPSULE DR PO (07:03)
[2022-10-10] MEDS: ASPIRIN 81 MG TABLET EC PO (07:03)
[2022-10-10] MEDS: LEVOTHYROXINE 50 MCG TABLET PO (07:03)
[2022-10-10] MEDS: SERTRALINE 100 MG TABLET 125 MG PO (07:04)
[2022-10-10] MEDS: NON-FORMULARY MEDICATION INH (07:04)
[2022-10-10 11:23] VITALS: BP 104/61; PULSE 69; RESP 20; TEMP 36.4; O2SAT 95
[2022-10-10] MEDS: LOPERAMIDE HCL 2 MG CAPSULE PO (13:15)
--- NOTE | 2022-10-10 13:20 | PC.NURSE ---
Diarrhoea : Resident had 4 loose stool yesterday after lunch. PRN dose of Immodium was given at 1315
[2022-10-10 13:28] VITALS: BMI 21.2
[2022-10-10] MEDS: DONEPEZIL 5 MG TABLET PO (19:01)
[2022-10-10] MEDS: MELATONIN 3 MG TABLET 5 MG PO (19:01)
[2022-10-10] MEDS: MIRTAZAPINE 15 MG TABLET 7.5 MG PO (19:02)
[2022-10-11] MEDS: ASPIRIN 81 MG TABLET EC PO (07:02)
[2022-10-11] MEDS: SERTRALINE 100 MG TABLET 125 MG PO (07:02)
[2022-10-11] MEDS: OMEPRAZOLE 20 MG CAPSULE DR PO (07:02)
[2022-10-11] MEDS: NON-FORMULARY MEDICATION INH (07:02)
[2022-10-11] MEDS: LEVOTHYROXINE 50 MCG TABLET PO (07:02)
[2022-10-11] MEDS: ACETAMINOPHEN 325 MG TABLET 650 MG PO ×2 (07:02→15:48)
[2022-10-11] MEDS: METOPROLOL SUCCINATE (XL) 25 MG TAB PO (07:02)
[2022-10-11] MEDS: MELATONIN 3 MG TABLET 5 MG PO (20:05)
[2022-10-11] MEDS: MIRTAZAPINE 15 MG TABLET 7.5 MG PO (20:05)
[2022-10-11] MEDS: DONEPEZIL 5 MG TABLET PO (20:05)
[2022-10-12] MEDS: ACETAMINOPHEN 325 MG TABLET 650 MG PO ×2 (07:09→15:25)
[2022-10-12] MEDS: OMEPRAZOLE 20 MG CAPSULE DR PO (07:09)
[2022-10-12] MEDS: NON-FORMULARY MEDICATION INH (07:09)
[2022-10-12] MEDS: ASPIRIN 81 MG TABLET EC PO (07:09)
[2022-10-12] MEDS: LEVOTHYROXINE 50 MCG TABLET PO (07:09)
[2022-10-12] MEDS: METOPROLOL SUCCINATE (XL) 25 MG TAB PO (07:09)
[2022-10-12] MEDS: SERTRALINE 100 MG TABLET 125 MG PO (07:09)
[2022-10-12] MEDS: MELATONIN 3 MG TABLET 5 MG PO (19:59)
[2022-10-12] MEDS: MIRTAZAPINE 15 MG TABLET 7.5 MG PO (19:59)
[2022-10-12] MEDS: DONEPEZIL 5 MG TABLET PO (19:59)
[2022-10-13] MEDS: ASPIRIN 81 MG TABLET EC PO (07:23)
[2022-10-13] MEDS: ACETAMINOPHEN 325 MG TABLET 650 MG PO ×2 (07:23→16:22)
[2022-10-13] MEDS: OMEPRAZOLE 20 MG CAPSULE DR PO (07:23)
[2022-10-13] MEDS: LEVOTHYROXINE 50 MCG TABLET PO (07:23)
[2022-10-13] MEDS: NON-FORMULARY MEDICATION INH (07:24)
[2022-10-13] MEDS: METOPROLOL SUCCINATE (XL) 25 MG TAB PO (07:24)
[2022-10-13] MEDS: SERTRALINE 100 MG TABLET 125 MG PO (07:24)
[2022-10-13] MEDS: guaiFENesin 100 MG/ML CUP PO (11:50)
[2022-10-13] MEDS: MELATONIN 3 MG TABLET 5 MG PO (19:24)
[2022-10-13] MEDS: MIRTAZAPINE 15 MG TABLET 7.5 MG PO (19:24)
[2022-10-13] MEDS: DONEPEZIL 5 MG TABLET PO (19:24)
--- NOTE | 2022-10-14 00:56 | PC.NURSE ---
Cough : Resident had episode of hacking cough at 2350, unable to sleep, given standing order of Guaifenesin cough syrup with good result.
--- NOTE | 2022-10-14 06:51 | PC.NURSE ---
Behavior: Resident self -transfer herself to the bathroom and did not wait for staff research associate. Staff tried to redirect but resident refused to listen.
[2022-10-14] MEDS: ACETAMINOPHEN 325 MG TABLET 650 MG PO ×2 (07:20→16:04)
[2022-10-14] MEDS: LEVOTHYROXINE 50 MCG TABLET PO (07:20)
[2022-10-14] MEDS: ASPIRIN 81 MG TABLET EC PO (07:20)
[2022-10-14] MEDS: OMEPRAZOLE 20 MG CAPSULE DR PO (07:20)
[2022-10-14] MEDS: METOPROLOL SUCCINATE (XL) 25 MG TAB PO (07:20)
[2022-10-14] MEDS: SERTRALINE 100 MG TABLET 125 MG PO (07:21)
[2022-10-14] MEDS: NON-FORMULARY MEDICATION INH (07:21)
[2022-10-14] MEDS: MELATONIN 3 MG TABLET 5 MG PO (20:09)
[2022-10-14] MEDS: DONEPEZIL 5 MG TABLET PO (20:09)
[2022-10-14] MEDS: MIRTAZAPINE 15 MG TABLET 7.5 MG PO (20:09)
--- NOTE | 2022-10-15 01:52 | PC.NURSE ---
Weekly Charting for Week #4: Reviewed vital signs and were found to be stable. Did note the Addition of Remeron to her Nightime med regimen. It was to help with her anxiety and nightime. Were to monitor for effectiveness and side effects noted. Goal was for her to be able to sleep. Was noted that her sleeping has been much better without noted anxiety. She asks to be toileted regularly at night but no behaviors noted. Also noted that the prn Ativan for HS was discontinued. Goal was that she would use the call light and not call out to staff. She does continue to call out but has tried not to call out loudly. Continue to remind her to use the call light. She also recieves Zoloft to help with depression and anxiety without any unusual side effects. No changes in her communication skills. She is slightly hard of hearing but does not use hearing aides. She wears corrective lenses and her orientation is challenged with her Dementia. She has had no changes in her chronic health conditions.
[2022-10-15] MEDS: OMEPRAZOLE 20 MG CAPSULE DR PO (06:53)
[2022-10-15] MEDS: LEVOTHYROXINE 50 MCG TABLET PO (06:53)
[2022-10-15] MEDS: ACETAMINOPHEN 325 MG TABLET 650 MG PO ×2 (07:37→16:01)
[2022-10-15] MEDS: METOPROLOL SUCCINATE (XL) 25 MG TAB PO (07:38)
[2022-10-15] MEDS: SERTRALINE 100 MG TABLET 125 MG PO (07:38)
[2022-10-15] MEDS: NON-FORMULARY MEDICATION INH (07:38)
[2022-10-15] MEDS: ASPIRIN 81 MG TABLET EC PO (07:38)
--- NOTE | 2022-10-15 13:14 | PC.NURSE ---
Week #4: Comprehensive care plan reviewed, no changes made. Nothing added to temporary care plan. Resident does make her needs known. Staff also anticipate her need. She is hard of hearing, wears bilateral hearing aids. Vision impaired corrected with glasses. Has memory/cognition deficit r/t diagnosis of dementia. Chronic health condition stable. Is not able to self administer medications. Vital signs, reviewed, no concerns. Mood/Behavior:Has periods of forgetfulness and calling out for staff. 09/10/22 Remeron 7.5mg started to aid with sleep and is helpful. Melatonin 5mg at HS. 09/17 Ativan HS PRN discontinued. Is on Zoloft 125mg daily. No adverse effects noted.
[2022-10-15] MEDS: MELATONIN 3 MG TABLET 5 MG PO (19:41)
[2022-10-15] MEDS: DONEPEZIL 5 MG TABLET PO (19:41)
[2022-10-15] MEDS: MIRTAZAPINE 15 MG TABLET 7.5 MG PO (19:41)
[2022-10-16] MEDS: NON-FORMULARY MEDICATION PO (05:25)
[2022-10-16] MEDS: OMEPRAZOLE 20 MG CAPSULE DR PO (07:18)
[2022-10-16] MEDS: LEVOTHYROXINE 50 MCG TABLET PO (07:18)
[2022-10-16] MEDS: SERTRALINE 100 MG TABLET 125 MG PO (07:49)
[2022-10-16] MEDS: METOPROLOL SUCCINATE (XL) 25 MG TAB PO (07:49)
[2022-10-16] MEDS: ASPIRIN 81 MG TABLET EC PO (07:49)
[2022-10-16] MEDS: NON-FORMULARY MEDICATION INH (07:49)
[2022-10-16] MEDS: ACETAMINOPHEN 325 MG TABLET 650 MG PO ×2 (07:49→15:04)
--- NOTE | 2022-10-16 14:09 | PC.SPIRITC ---
I provided visit for support and connection.
[2022-10-16] MEDS: MIRTAZAPINE 15 MG TABLET 7.5 MG PO (20:17)
[2022-10-16] MEDS: MELATONIN 3 MG TABLET 5 MG PO (20:17)
[2022-10-16] MEDS: DONEPEZIL 5 MG TABLET PO (20:17)
[2022-10-17] MEDS: OMEPRAZOLE 20 MG CAPSULE DR PO (07:29)
[2022-10-17] MEDS: ACETAMINOPHEN 325 MG TABLET 650 MG PO ×2 (07:29→16:33)
[2022-10-17] MEDS: METOPROLOL SUCCINATE (XL) 25 MG TAB PO (07:29)
[2022-10-17] MEDS: ASPIRIN 81 MG TABLET EC PO (07:29)
[2022-10-17] MEDS: LEVOTHYROXINE 50 MCG TABLET PO (07:29)
[2022-10-17] MEDS: SERTRALINE 100 MG TABLET 125 MG PO (07:30)
[2022-10-17] MEDS: NON-FORMULARY MEDICATION INH (07:30)
[2022-10-17 11:03] VITALS: BP 106/60; PULSE 60; RESP 20; TEMP 36.6; O2SAT 96
[2022-10-17 13:41] VITALS: BMI 21.7
[2022-10-17] MEDS: MIRTAZAPINE 15 MG TABLET 7.5 MG PO (19:24)
[2022-10-17] MEDS: DONEPEZIL 5 MG TABLET PO (19:24)
[2022-10-17] MEDS: MELATONIN 3 MG TABLET 5 MG PO (19:24)
[2022-10-17] MEDS: NYSTATIN CREAM 30 GM 1 APPLIC TOPICAL (19:52)
--- NOTE | 2022-10-17 21:21 | PC.NURSE ---
Skin Care: Noted redness under left breast. Nystatin creme applied. Intervention in place for skin care. Monitor until redness is resolved.
[2022-10-18] MEDS: ACETAMINOPHEN 325 MG TABLET 650 MG PO ×2 (07:55→15:23)
[2022-10-18] MEDS: ASPIRIN 81 MG TABLET EC PO (07:55)
[2022-10-18] MEDS: SERTRALINE 100 MG TABLET 125 MG PO (07:55)
[2022-10-18] MEDS: NON-FORMULARY MEDICATION INH (07:55)
[2022-10-18] MEDS: OMEPRAZOLE 20 MG CAPSULE DR PO (07:55)
[2022-10-18] MEDS: LEVOTHYROXINE 50 MCG TABLET PO (07:55)
[2022-10-18] MEDS: METOPROLOL SUCCINATE (XL) 25 MG TAB PO (07:55)
--- NOTE | 2022-10-18 14:09 | PC.NURSE ---
Side rail Assessment/Providers Orders/Informed Consent: Completed side rail utilization assessment, RBVO left bed rail up to always promote independence/positioning. Requested by resident and daughter. DX: COPD/Osteoarthritis per Genesis Cain NP. Bed rail informed consent form signed and filed. FDA side rail pamphlet given to resident at this time. Intervention in place/Care Plan and Care Sheets updated.
[2022-10-18] MEDS: MELATONIN 3 MG TABLET 5 MG PO (19:22)
[2022-10-18] MEDS: DONEPEZIL 5 MG TABLET PO (19:22)
[2022-10-18] MEDS: MIRTAZAPINE 15 MG TABLET 7.5 MG PO (19:23)
[2022-10-19] MEDS: LEVOTHYROXINE 50 MCG TABLET PO (07:02)
[2022-10-19] MEDS: OMEPRAZOLE 20 MG CAPSULE DR PO (07:02)
[2022-10-19] MEDS: ASPIRIN 81 MG TABLET EC PO (07:03)
[2022-10-19] MEDS: METOPROLOL SUCCINATE (XL) 25 MG TAB PO (07:03)
[2022-10-19] MEDS: ACETAMINOPHEN 325 MG TABLET 650 MG PO ×2 (07:03→16:15)
[2022-10-19] MEDS: SERTRALINE 100 MG TABLET 125 MG PO (07:03)
[2022-10-19] MEDS: NON-FORMULARY MEDICATION INH (07:03)
[2022-10-19] MEDS: MIRTAZAPINE 15 MG TABLET 7.5 MG PO (19:54)
[2022-10-19] MEDS: MELATONIN 3 MG TABLET 5 MG PO (19:54)
[2022-10-19] MEDS: DONEPEZIL 5 MG TABLET PO (19:54)
[2022-10-19] MEDS: guaiFENesin 100 MG/ML CUP PO (20:07)
[2022-10-19] MEDS: NYSTATIN CREAM 30 GM 1 APPLIC TOPICAL (20:16)
[2022-10-19 21:16] LABS: PCR FLU A Negative PCR FLU A (Negative); PCR FLU B Negative PCR FLU B (Negative); PCR RSV Negative PCR RSV (Negative); SARS PCR* Negative SARS-CoV-2 (Negative)
--- NOTE | 2022-10-19 21:40 | PC.NURSE ---
Status: Resident has a cough was given Robitussin with out relief. Tested for COVID, Flu A&B and RSV all came back negative.
[2022-10-20] MEDS: LEVOTHYROXINE 50 MCG TABLET PO (07:56)
[2022-10-20] MEDS: OMEPRAZOLE 20 MG CAPSULE DR PO (07:56)
[2022-10-20] MEDS: METOPROLOL SUCCINATE (XL) 25 MG TAB PO (07:57)
[2022-10-20] MEDS: ACETAMINOPHEN 325 MG TABLET 650 MG PO ×2 (07:57→15:32)
[2022-10-20] MEDS: ASPIRIN 81 MG TABLET EC PO (07:57)
[2022-10-20] MEDS: SERTRALINE 100 MG TABLET 125 MG PO (07:59)
[2022-10-20] MEDS: NON-FORMULARY MEDICATION INH (07:59)
--- NOTE | 2022-10-20 12:45 | PC.NURSE ---
Status: No cough noted with temp of 97.4
[2022-10-20] MEDS: DONEPEZIL 5 MG TABLET PO (19:50)
[2022-10-20] MEDS: NYSTATIN CREAM 30 GM 1 APPLIC TOPICAL (19:50)
[2022-10-20] MEDS: MIRTAZAPINE 15 MG TABLET 7.5 MG PO (19:50)
[2022-10-20] MEDS: MELATONIN 3 MG TABLET 5 MG PO (19:50)
--- NOTE | 2022-10-21 05:26 | PC.NURSE ---
No cough noted through thee night. Denies any other complaints.
[2022-10-21] MEDS: METOPROLOL SUCCINATE (XL) 25 MG TAB PO (07:23)
[2022-10-21] MEDS: ACETAMINOPHEN 325 MG TABLET 650 MG PO ×2 (07:23→15:43)
[2022-10-21] MEDS: ASPIRIN 81 MG TABLET EC PO (07:23)
[2022-10-21] MEDS: LEVOTHYROXINE 50 MCG TABLET PO (07:23)
[2022-10-21] MEDS: OMEPRAZOLE 20 MG CAPSULE DR PO (07:23)
[2022-10-21] MEDS: NON-FORMULARY MEDICATION INH (07:23)
[2022-10-21] MEDS: SERTRALINE 100 MG TABLET 125 MG PO (07:24)
[2022-10-21 09:24] VITALS: TEMP 36.6; O2SAT 93
--- NOTE | 2022-10-21 13:26 | PC.NURSE ---
Addendum entered by Poly Frazier RN 10/21/22 19:17: 10/19/22 Residents daughter Alison gave consent for COVID testing until outbreak status is complete Original Note: COVID OUTBREAK TESTING: Resident provided verbal consent for outbreak COVID testing. Resident is currently asymptomatic. Resident/family will be notified only if resident is positive.
[2022-10-21 18:20] LABS: SARS PCR* Negative SARS-CoV-2 (Negative)
[2022-10-21] MEDS: MELATONIN 3 MG TABLET 5 MG PO (19:16)
[2022-10-21] MEDS: DONEPEZIL 5 MG TABLET PO (19:16)
[2022-10-21] MEDS: MIRTAZAPINE 15 MG TABLET 7.5 MG PO (19:17)
[2022-10-21 20:03] VITALS: TEMP 36.4; O2SAT 94
[2022-10-21 23:00] VITALS: TEMP 36.6; O2SAT 95
--- NOTE | 2022-10-22 02:52 | PC.NURSE ---
WEEKLY CHARTING - WEEK 1: Vital signs reviewed with no concerns. Temporary and comprehensive care plan reviewed - no change. Has hx of generalized pain. Currently receives acetaminophen 650mg BID and tramadol 50mg TID PRN for pain management. PRN tramadol has been utilized x8 in the last month. Requires assist of 1 with bathing, dress, grooming, and oral care. Is independent after set-up with meals. Receives a regular diet. Appetite is poor at times, but weight is stable.
--- NOTE | 2022-10-22 05:45 | PC.NURSE ---
Behavior: Farm Equipment Service Technician heard resident yelling help repeatedly form room after ANTISQUEAK CHALKER had entered room d/t bed alarm sounding. Resident was upset with aide. Farm Equipment Service Technician instructed aide to leave room and this nurse would assist resident with needs. Farm Equipment Service Technician assisted resident to toilet and back to bed without any incident. Aide reported that resident was slapping her across the face and on arms because she had locked the brakes on her 4WW.
[2022-10-22 07:00] VITALS: TEMP 36.5; O2SAT 96
[2022-10-22] MEDS: OMEPRAZOLE 20 MG CAPSULE DR PO (07:23)
[2022-10-22] MEDS: ACETAMINOPHEN 325 MG TABLET 650 MG PO ×2 (07:23→15:49)
[2022-10-22] MEDS: LEVOTHYROXINE 50 MCG TABLET PO (07:23)
[2022-10-22] MEDS: NON-FORMULARY MEDICATION INH (07:23)
[2022-10-22] MEDS: ASPIRIN 81 MG TABLET EC PO (07:23)
[2022-10-22] MEDS: METOPROLOL SUCCINATE (XL) 25 MG TAB PO (07:23)
[2022-10-22] MEDS: SERTRALINE 100 MG TABLET 125 MG PO (07:24)
[2022-10-22 15:00] VITALS: TEMP 36.9; O2SAT 98
--- NOTE | 2022-10-22 17:11 | PC.NURSE ---
Week #1: Vital signs, Care plan, and Temporary reviewed. No changes made nothing added at this time, and vitals are within resident's normal ranges. It requires extensive assist of one for some ADL tasks including dressing and bathing. Able to participate in grooming task with limited assist by staff. Independent with oral cares after set up assistance. With cues and encouragements, resident feeds self after set up, but staff opens milk cartons and pour juices for her. Diet type is regular and thin liquids. No issues with appetite or swallowing noted or reported so far. Pain: Pain is managed with Tylenol 650mg BID & Ultram 50mg TID PRN.
[2022-10-22] MEDS: MIRTAZAPINE 15 MG TABLET 7.5 MG PO (19:33)
[2022-10-22] MEDS: MELATONIN 3 MG TABLET 5 MG PO (19:33)
[2022-10-22] MEDS: DONEPEZIL 5 MG TABLET PO (19:33)
[2022-10-22 23:00] VITALS: TEMP 36.1; O2SAT 93
[2022-10-23] VITALS (7 sets, daily range): BP systolic 144–160; BP diastolic 69–94; PULSE 70–72; RESP 20–24; TEMP 36.1–37.2; O2SAT 92–98; BMI 21.7
[2022-10-23] MEDS: NON-FORMULARY MEDICATION PO (05:41)
[2022-10-23] MEDS: METOPROLOL SUCCINATE (XL) 25 MG TAB PO (07:29)
[2022-10-23] MEDS: OMEPRAZOLE 20 MG CAPSULE DR PO (07:29)
[2022-10-23] MEDS: ACETAMINOPHEN 325 MG TABLET 650 MG PO ×2 (07:29→15:06)
[2022-10-23] MEDS: ASPIRIN 81 MG TABLET EC PO (07:29)
[2022-10-23] MEDS: NON-FORMULARY MEDICATION INH (07:29)
[2022-10-23] MEDS: LEVOTHYROXINE 50 MCG TABLET PO (07:29)
[2022-10-23] MEDS: SERTRALINE 100 MG TABLET 125 MG PO (07:30)
--- NOTE | 2022-10-23 13:30 | PC.NURSE ---
Resident had a coughing episode after the noon meal. Resident ambulated back to room. Stated she needed to throw up then began to forcefully cough and spit out thick white phlegm. Resident began diaphragmatic breathing, difficulty catching her breath and turning purple/blue. 02 2 L placed via NC. Encouraged deep breathing. Resident able to take deep breaths. Began to be diaphoretic. Cool wash cloth placed on forehead. VS taken. LS done: wheezing throughout. Resident was able to come back to baseline after 5-10 minutes of deep breathing and 02 use.
--- NOTE | 2022-10-23 13:45 | PC.NURSE ---
WRAPPER STEMMER HAND called and updated on resident having difficulty breathing and wheeze noted through out lung anderson. WRAPPER STEMMER HAND RBVO: Chest X-ray 2 view. DX: SOB/Cough. Will review and update with tx plan.
--- NOTE | 2022-10-23 13:51 | CRLHL7_ITS ---
For Patients: As a result of the Century Cures Act, medical imaging exams and procedure reports are released immediately into your electronic medical record. You may view this report before your referring provider. If you have questions, please contact your health care provider. INDICATION: Cough and shortness of breath. TECHNIQUE: Chest 1 views. COMPARISON: 07/02/2022. FINDINGS: Cardiovasculature and mediastinum: Heart size and vasculature are normal in caliber and appearance. Lungs and pleural spaces: Lungs are clear. No sign of infiltrate or mass. No sign of pleural effusion. No pneumothorax. Bones and soft tissues: No significant findings. IMPRESSION: No acute findings and no significant changes from the prior exam. No sign of CHF or pneumonia. Dictated by Wade Giles MD @ 10/23/2022 3:18:41 PM (Electronically Signed)
--- NOTE | 2022-10-23 14:00 | PC.NURSE ---
Spoke to daughter Alison of residents health status and new order for chest Xray. Daughter in agreement with plan of care. Daughter will come to visit later today.
[2022-10-23] MEDS: MIRTAZAPINE 15 MG TABLET 7.5 MG PO (19:11)
[2022-10-23] MEDS: MELATONIN 3 MG TABLET 5 MG PO (19:11)
[2022-10-23] MEDS: DONEPEZIL 5 MG TABLET PO (19:11)
[2022-10-23] MEDS: guaiFENesin 100 MG/ML CUP PO (19:14)
[2022-10-23 20:59] LABS: SARS PCR* Negative SARS-CoV-2 (Negative)
--- NOTE | 2022-10-23 21:03 | PC.NURSE ---
COUGH: Resident has audible persistent cough. Was given PRN Robotussin 10ml @ 1914. Was effective. COVID swab collected @ 20:05. Results negative. Resident sleeping at this time.
[2022-10-24] MEDS: OMEPRAZOLE 20 MG CAPSULE DR PO (07:53)
[2022-10-24] MEDS: ASPIRIN 81 MG TABLET EC PO (07:53)
[2022-10-24] MEDS: ACETAMINOPHEN 325 MG TABLET 650 MG PO ×2 (07:53→15:48)
[2022-10-24] MEDS: METOPROLOL SUCCINATE (XL) 25 MG TAB PO (07:53)
[2022-10-24] MEDS: LEVOTHYROXINE 50 MCG TABLET PO (07:53)
[2022-10-24] MEDS: NYSTATIN CREAM 30 GM 1 APPLIC TOPICAL ×2 (07:54→08:03)
[2022-10-24] MEDS: SERTRALINE 100 MG TABLET 125 MG PO (07:54)
[2022-10-24] MEDS: NON-FORMULARY MEDICATION INH (07:54)
[2022-10-24 10:09] VITALS: BP 149/87; PULSE 66; RESP 18; TEMP 36.1; O2SAT 95
--- NOTE | 2022-10-24 12:08 | PC.SPIRITC ---
I provided visit for support, connection, and to read denominational devotional material to Amberly.
[2022-10-24 13:24] VITALS: BMI 21.7
[2022-10-24 15:00] VITALS: TEMP 36.7; O2SAT 97
[2022-10-24] MEDS: DONEPEZIL 5 MG TABLET PO (19:31)
[2022-10-24] MEDS: MELATONIN 3 MG TABLET 5 MG PO (19:31)
[2022-10-24] MEDS: MIRTAZAPINE 15 MG TABLET 7.5 MG PO (19:31)
[2022-10-24 23:00] VITALS: TEMP 36.7; O2SAT 92
--- NOTE | 2022-10-24 23:05 | PC.NURSE ---
Evacuee Assessment: resident is able to ambulate only short distances with staff members. At this time appropriate level 2.
[2022-10-25 01:14] VITALS: TEMP 36.7
[2022-10-25] MEDS: OMEPRAZOLE 20 MG CAPSULE DR PO (07:14)
[2022-10-25] MEDS: METOPROLOL SUCCINATE (XL) 25 MG TAB PO (07:15)
[2022-10-25] MEDS: ACETAMINOPHEN 325 MG TABLET 650 MG PO ×2 (07:15→15:11)
[2022-10-25] MEDS: LEVOTHYROXINE 50 MCG TABLET PO (07:15)
[2022-10-25] MEDS: ASPIRIN 81 MG TABLET EC PO (07:15)
[2022-10-25] MEDS: NON-FORMULARY MEDICATION INH (07:16)
[2022-10-25] MEDS: SERTRALINE 100 MG TABLET 125 MG PO (07:17)
[2022-10-25 10:20] VITALS: TEMP 36.6; O2SAT 94
[2022-10-25 15:00] VITALS: TEMP 36.6; O2SAT 94
[2022-10-25] MEDS: MELATONIN 3 MG TABLET 5 MG PO (19:11)
[2022-10-25] MEDS: DONEPEZIL 5 MG TABLET PO (19:11)
[2022-10-25] MEDS: MIRTAZAPINE 15 MG TABLET 7.5 MG PO (19:12)
[2022-10-25 23:00] VITALS: TEMP 36.6; O2SAT 91
[2022-10-26] MEDS: ACETAMINOPHEN 325 MG TABLET 650 MG PO ×2 (07:06→16:12)
[2022-10-26] MEDS: OMEPRAZOLE 20 MG CAPSULE DR PO (07:06)
[2022-10-26] MEDS: LEVOTHYROXINE 50 MCG TABLET PO (07:06)
[2022-10-26] MEDS: ASPIRIN 81 MG TABLET EC PO (07:06)
[2022-10-26] MEDS: NON-FORMULARY MEDICATION INH (07:07)
[2022-10-26] MEDS: SERTRALINE 100 MG TABLET 125 MG PO (07:07)
[2022-10-26] MEDS: METOPROLOL SUCCINATE (XL) 25 MG TAB PO (07:07)
--- NOTE | 2022-10-26 10:14 | PC.NURSE ---
Skin: Redness to breast is healed, intervention D/C'd
[2022-10-26 10:15] VITALS: TEMP 36.8; O2SAT 92
[2022-10-26 15:00] VITALS: TEMP 36.6; O2SAT 92
[2022-10-26] MEDS: MELATONIN 3 MG TABLET 5 MG PO (19:47)
[2022-10-26] MEDS: DONEPEZIL 5 MG TABLET PO (19:47)
[2022-10-26] MEDS: MIRTAZAPINE 15 MG TABLET 7.5 MG PO (19:47)
[2022-10-26 23:00] VITALS: TEMP 36.6; O2SAT 97
[2022-10-27] MEDS: LEVOTHYROXINE 50 MCG TABLET PO (07:33)
[2022-10-27] MEDS: OMEPRAZOLE 20 MG CAPSULE DR PO (07:33)
--- NOTE | 2022-10-27 08:00 | PC.NURSE ---
Status: Was reported that resident had an emesis at 1am. Resident was placed in isolation this morning, temp 98.2, O2 92% on room air. Covid/influenza/RSV swab done at this time
[2022-10-27] MEDS: ACETAMINOPHEN 325 MG TABLET 650 MG PO ×2 (08:19→15:19)
[2022-10-27] MEDS: ASPIRIN 81 MG TABLET EC PO (08:19)
[2022-10-27] MEDS: NON-FORMULARY MEDICATION INH (08:20)
[2022-10-27] MEDS: METOPROLOL SUCCINATE (XL) 25 MG TAB PO (08:20)
[2022-10-27] MEDS: SERTRALINE 100 MG TABLET 125 MG PO (08:21)
[2022-10-27 08:52] LABS: PCR FLU A Negative PCR FLU A (Negative); PCR FLU B Negative PCR FLU B (Negative); PCR RSV Negative PCR RSV (Negative)
--- NOTE | 2022-10-27 09:03 | PC.NURSE ---
Status: Resident has been sleeping since beginning of shift but is responsive per normal self. No further emesis at this time. Daughter Alison updated about condition. Full vitals: B/P 142/76, T98.2, O2 92% on room air, lungs clear, P60 R20. Will get order for norovirus test. Daughter would like to be updated of any changes.
--- NOTE | 2022-10-27 09:46 | PC.NURSE ---
Addendum entered by Lacey Rogel LPN 10/27/22 12:43: Order received from Sharonda Cain for RSV test Original Note: Status: Call placed to [facility] for order for norovirus test. Spoke to Sandi who stated that Sharonda Cain gave DON the order on Friday for OK to test for norovirus. Will test when she has a BM
[2022-10-27 09:57] LABS: SARS PCR* Negative SARS-CoV-2 (Negative)
[2022-10-27 10:14] VITALS: TEMP 36.8; O2SAT 92
--- NOTE | 2022-10-27 12:47 | PC.NURSE ---
Status: Resident did complain of nausea but no further emesis this shift. Only at 1/2 piece of toast for breakfast and 1/4 of a grill cheese sandwich. Does report feeling weak. Temp 98.6, O294%
[2022-10-27 15:00] VITALS: TEMP 37.1; O2SAT 92
[2022-10-27] MEDS: TRAMADOL HCL 50 MG TABLET PO (19:25)
[2022-10-27] MEDS: MELATONIN 3 MG TABLET 5 MG PO (19:26)
[2022-10-27] MEDS: MIRTAZAPINE 15 MG TABLET 7.5 MG PO (19:26)
[2022-10-27] MEDS: DONEPEZIL 5 MG TABLET PO (19:26)
--- NOTE | 2022-10-27 21:56 | PC.NURSE ---
Status: Resident did not have BM to collect stool sample this shift. Ate 75% of supper and tolerated well. No emesis. No reports of nausea. Resident does report feeling weaker, and technical writer and editor observed unsteady gait while ambulating with walker. Did c/o pain near left shoulder/back while getting ready for bed. Was given warm towel and ultram @ 1925. Provided relief and resident sleeping at this time.
[2022-10-27 23:00] VITALS: TEMP 36.2; O2SAT 91
[2022-10-28] MEDS: METOPROLOL SUCCINATE (XL) 25 MG TAB PO (07:16)
[2022-10-28] MEDS: LEVOTHYROXINE 50 MCG TABLET PO (07:16)
[2022-10-28] MEDS: ACETAMINOPHEN 325 MG TABLET 650 MG PO ×2 (07:16→15:28)
[2022-10-28] MEDS: OMEPRAZOLE 20 MG CAPSULE DR PO (07:16)
[2022-10-28] MEDS: NON-FORMULARY MEDICATION INH (07:16)
[2022-10-28] MEDS: ASPIRIN 81 MG TABLET EC PO (07:16)
[2022-10-28] MEDS: SERTRALINE 100 MG TABLET 125 MG PO (07:17)
[2022-10-28 13:03] VITALS: TEMP 36.4; O2SAT 94
--- NOTE | 2022-10-28 13:04 | PC.NURSE ---
Status: Resident was more herself this shift, ate most of both meals with no loose BMs or emesis
[2022-10-28] MEDS: MIRTAZAPINE 15 MG TABLET 7.5 MG PO (19:12)
[2022-10-28] MEDS: MELATONIN 3 MG TABLET 5 MG PO (19:12)
[2022-10-28] MEDS: DONEPEZIL 5 MG TABLET PO (19:12)
[2022-10-28 21:06] VITALS: TEMP 36.6; O2SAT 94
--- NOTE | 2022-10-28 21:20 | PC.NURSE ---
Behavior: Resident is very quick to agitation/aggression due to the fact that she is in quarantine and is unable to leave her room. Resident did self transfer and come out to the dining room by herself, was able to redirect resident.
[2022-10-28 22:01] LABS: SARS PCR* Negative SARS-CoV-2 (Negative)
[2022-10-28 23:00] VITALS: TEMP 36.2; O2SAT 92
[2022-10-29] MEDS: TRAMADOL HCL 50 MG TABLET PO (02:33)
--- NOTE | 2022-10-29 04:48 | PC.NURSE ---
PAIN Resident complained about pain around 0230 on her right chest and her back. PRN Tramadol 50 mg was given. Will monitor for effectiveness.
--- NOTE | 2022-10-29 05:39 | PC.NURSE ---
Resident did not have emesis or loose stool all night. Her pain went from right back to left back , pain med was not quiet effective. She called several times during night to use the toilet , complaining about gas and was not able to have any stool.
--- NOTE | 2022-10-29 05:44 | PC.NURSE ---
Resident vitals earlier were 97.1 18 68 177/83 92 % RA.
--- NOTE | 2022-10-29 07:33 | PC.NURSE ---
Week #2 - Mobility: Comprehensive care plan reviewed, no changes made. Nothing added to temporary care plan. Resident needs one assist, transfer belt, & walker with transfers and ambulation. Follow with wheelchair when walking as needed. Occasionally will self transfer and set off the alarm. Staff wheels to destinations. Staff to assist with T & R when in bed every 2 hours. Resident is able to grab rails to aid for positioning. Top (L) side rail up in bed to promote independence in repositioning. Bed alarm off during the day. Vital signs reviewed. Has some elevated BP's depending on resident status r/t anxiety. Continue VS monitoring every week. Fall: No falls the past month. Remains a high fall risk according to assessment done on 10/24/22.
[2022-10-29] MEDS: OMEPRAZOLE 20 MG CAPSULE DR PO (07:47)
[2022-10-29] MEDS: LEVOTHYROXINE 50 MCG TABLET PO (07:48)
[2022-10-29] MEDS: ACETAMINOPHEN 325 MG TABLET 650 MG PO ×2 (08:33→15:50)
[2022-10-29] MEDS: ASPIRIN 81 MG TABLET EC PO (08:33)
[2022-10-29] MEDS: METOPROLOL SUCCINATE (XL) 25 MG TAB PO (08:33)
[2022-10-29] MEDS: NON-FORMULARY MEDICATION INH (08:34)
[2022-10-29] MEDS: SERTRALINE 100 MG TABLET 125 MG PO (08:34)
--- NOTE | 2022-10-29 10:59 | PC.NURSE ---
Resident Status : Resident was alert this morning and as usual ask for her coffee.Took her breakfast 80%. No episode of diarrhoea and vomiting. Resident c/o of feeling very bored and restless cause unable to come out and join the activities. She was redirected and told that maybe she could come out of her isolation tomorrow.
[2022-10-29 15:00] VITALS: TEMP 36.8; O2SAT 97
--- NOTE | 2022-10-29 16:00 | PC.NURSE ---
CARE CONFERENCE: Care conference meeting held with all members of care team present with son and daughter. Due to residents cognition level she did not participate. Resident has become stronger in the past 3 months. She is able to transfer and ambulate with 1 assist and walker to all destinations. Discussed that resident does self transfer at times and will turn her alarm off herself. Discussed fall risk. She does use her w/c at times. Resident does propel her w/c at times. At times staff assist with w/c propelling. Nursing reviewed that resident continues to need 1 assist with adls, transfers, and mobility. Staff propels resident in w/c when needed. Discussed that resident has been incontinent of bowel and bladder. Discussed that resident becomes more confused during the evening hours and this is when she will call family and ask to be picked up. She will also do this at the nursing station at times. Discussed medications and dx associated with them. Copy given to family. Discussed recent episodes of coughing and SOB as per FLY WINDER this maybe caused by COPD dx. Will continue to monitor at this time. DNR/DNI. POLST signed by family Uses no restraints. Does use 1- 1/4 side rail up to assist with positioning.? Resident is given medications by staff.? Vulnerable due to mobility limitations, cognition and hearing loss. Discussed stage 3 pressure ulcer healed. Discussed that residents appetite has increased and she is eating a larger percent of meals, enlive, and ensure with staff assistance at times. Discussed weight. Discussed hearing, vision, and dental. At time family/resident have no concerns and no appointments needed. Residents family would like her to have a phone that has larger buttons. No further questions/concerns at this time.
--- NOTE | 2022-10-29 16:04 | PC.SOCIAL ---
Resident's care conference was held today in the activity room at the [facility] at 1:00 pm. Resident's son, Chris Darnell, and resident's daughter, Alison Pryor, were present in person. Updates were provided by Concepcion Frazier in Nursing, Janeth Daniel in Nutrition, Ania Wesley in Life Enrichment, and this worker from Social Work. Resident's care plan was reviewed and discussed. Resident's mood is stable and there are no concerns. Overall, family is very satisfied with the [facility] and the care that is being provided to resident. Social work will continue to follow up as necessary.
[2022-10-29] MEDS: MIRTAZAPINE 15 MG TABLET 7.5 MG PO (19:53)
[2022-10-29] MEDS: MELATONIN 3 MG TABLET 5 MG PO (19:53)
[2022-10-29] MEDS: DONEPEZIL 5 MG TABLET PO (19:53)
[2022-10-29 23:00] VITALS: TEMP 36.4; O2SAT 95
[2022-10-30] MEDS: NON-FORMULARY MEDICATION PO (05:51)
[2022-10-30] MEDS: ACETAMINOPHEN 325 MG TABLET 650 MG PO ×2 (07:31→16:02)
[2022-10-30] MEDS: ASPIRIN 81 MG TABLET EC PO (07:31)
[2022-10-30] MEDS: METOPROLOL SUCCINATE (XL) 25 MG TAB PO (07:31)
[2022-10-30] MEDS: NON-FORMULARY MEDICATION INH (07:31)
[2022-10-30] MEDS: LEVOTHYROXINE 50 MCG TABLET PO (07:31)
[2022-10-30] MEDS: OMEPRAZOLE 20 MG CAPSULE DR PO (07:31)
[2022-10-30] MEDS: SERTRALINE 100 MG TABLET 125 MG PO (07:31)
[2022-10-30 11:09] VITALS: TEMP 36.7; O2SAT 95
--- NOTE | 2022-10-30 13:39 | PC.NURSE ---
Out of Isolation : Resident is out of isolation for Norovirus. Vitals are WNL. No episode of vomiting and diarrhoea . Last symptoms were on 10/27/2022. Appetite good and looking forward to be out.
[2022-10-30 15:00] VITALS: TEMP 36.9; O2SAT 90
[2022-10-30] MEDS: DONEPEZIL 5 MG TABLET PO (19:41)
[2022-10-30] MEDS: MIRTAZAPINE 15 MG TABLET 7.5 MG PO (19:41)
[2022-10-30] MEDS: MELATONIN 3 MG TABLET 5 MG PO (19:41)
[2022-10-30] MEDS: guaiFENesin 100 MG/ML CUP PO (19:46)
--- NOTE | 2022-10-30 21:30 | PC.NURSE ---
Resident has audible cough that is heard from hallway. She requested a cough drop or cough medicine. Supervisor Stitching Department administered guaiFENesin 200mg pso @ 1946. Provided relief. Resident sleeping at this time.
[2022-10-30 23:00] VITALS: TEMP 36.8; O2SAT 94
[2022-10-31] MEDS: TRAMADOL HCL 50 MG TABLET PO (00:52)
[2022-10-31] MEDS: METOPROLOL SUCCINATE (XL) 25 MG TAB PO (07:14)
[2022-10-31] MEDS: OMEPRAZOLE 20 MG CAPSULE DR PO (07:14)
[2022-10-31] MEDS: ACETAMINOPHEN 325 MG TABLET 650 MG PO ×2 (07:14→15:59)
[2022-10-31] MEDS: LEVOTHYROXINE 50 MCG TABLET PO (07:14)
[2022-10-31] MEDS: NON-FORMULARY MEDICATION INH (07:14)
[2022-10-31] MEDS: ASPIRIN 81 MG TABLET EC PO (07:14)
[2022-10-31] MEDS: SERTRALINE 100 MG TABLET 125 MG PO (07:15)
[2022-10-31 09:52] VITALS: TEMP 36.7; O2SAT 94
[2022-10-31 09:54] VITALS: BP 145/87; PULSE 81; RESP 18; TEMP 36.7; O2SAT 94
[2022-10-31 15:00] VITALS: TEMP 36.7; O2SAT 90
[2022-10-31] MEDS: DONEPEZIL 5 MG TABLET PO (19:19)
[2022-10-31] MEDS: MELATONIN 3 MG TABLET 5 MG PO (19:19)
[2022-10-31] MEDS: MIRTAZAPINE 15 MG TABLET 7.5 MG PO (19:19)
[2022-10-31 23:00] VITALS: TEMP 36.7; O2SAT 95
--- NOTE | 2022-11-01 05:52 | PC.NURSE ---
MDS Clarification: Reviewed MDS ADL charting for JULIAN of 10/24. Resident charted for eating limited assist. After speaking with staff changed to independent with set up needed. Charted as such MDS.
[2022-11-01] MEDS: OMEPRAZOLE 20 MG CAPSULE DR PO (07:26)
[2022-11-01] MEDS: LEVOTHYROXINE 50 MCG TABLET PO (07:26)
[2022-11-01] MEDS: METOPROLOL SUCCINATE (XL) 25 MG TAB PO (08:14)
[2022-11-01] MEDS: NON-FORMULARY MEDICATION INH (08:14)
[2022-11-01] MEDS: ASPIRIN 81 MG TABLET EC PO (08:14)
[2022-11-01] MEDS: SERTRALINE 100 MG TABLET 125 MG PO (08:14)
[2022-11-01] MEDS: ACETAMINOPHEN 325 MG TABLET 650 MG PO ×2 (08:14→15:35)
[2022-11-01 10:31] VITALS: TEMP 36.8; O2SAT 92
[2022-11-01 15:00] VITALS: TEMP 36.8; O2SAT 96
[2022-11-01] MEDS: MIRTAZAPINE 15 MG TABLET 7.5 MG PO (19:21)
[2022-11-01] MEDS: MELATONIN 3 MG TABLET 5 MG PO (19:21)
[2022-11-01] MEDS: DONEPEZIL 5 MG TABLET PO (19:21)
[2022-11-01 23:00] VITALS: TEMP 36.9; O2SAT 94
[2022-11-02 07:00] VITALS: TEMP 36.8; O2SAT 94
[2022-11-02] MEDS: OMEPRAZOLE 20 MG CAPSULE DR PO (07:02)
[2022-11-02] MEDS: LEVOTHYROXINE 50 MCG TABLET PO (07:02)
[2022-11-02] MEDS: ASPIRIN 81 MG TABLET EC PO (08:10)
[2022-11-02] MEDS: SERTRALINE 100 MG TABLET 125 MG PO (08:10)
[2022-11-02] MEDS: ACETAMINOPHEN 325 MG TABLET 650 MG PO ×2 (08:10→15:35)
[2022-11-02] MEDS: NON-FORMULARY MEDICATION INH (08:10)
[2022-11-02] MEDS: METOPROLOL SUCCINATE (XL) 25 MG TAB PO (08:10)
[2022-11-02 15:00] VITALS: TEMP 36.6; O2SAT 95
[2022-11-02] MEDS: MELATONIN 3 MG TABLET 5 MG PO (19:42)
[2022-11-02] MEDS: MIRTAZAPINE 15 MG TABLET 7.5 MG PO (19:42)
[2022-11-02] MEDS: DONEPEZIL 5 MG TABLET PO (19:42)
[2022-11-02 23:00] VITALS: TEMP 37.1; O2SAT 94
[2022-11-03] MEDS: TRAMADOL HCL 50 MG TABLET PO (03:27)
[2022-11-03] MEDS: LEVOTHYROXINE 50 MCG TABLET PO (06:54)
[2022-11-03] MEDS: OMEPRAZOLE 20 MG CAPSULE DR PO (06:54)
[2022-11-03 07:00] VITALS: TEMP 37; O2SAT 94
[2022-11-03] MEDS: ACETAMINOPHEN 325 MG TABLET 650 MG PO ×2 (07:05→15:42)
[2022-11-03] MEDS: ASPIRIN 81 MG TABLET EC PO (08:11)
[2022-11-03] MEDS: NON-FORMULARY MEDICATION INH (08:11)
[2022-11-03] MEDS: SERTRALINE 100 MG TABLET 125 MG PO (08:11)
[2022-11-03] MEDS: METOPROLOL SUCCINATE (XL) 25 MG TAB PO (08:11)
[2022-11-03 15:00] VITALS: TEMP 37; O2SAT 93
[2022-11-03] MEDS: MELATONIN 3 MG TABLET 5 MG PO (19:28)
[2022-11-03] MEDS: MIRTAZAPINE 15 MG TABLET 7.5 MG PO (19:28)
[2022-11-03] MEDS: DONEPEZIL 5 MG TABLET PO (19:28)
[2022-11-03 23:00] VITALS: TEMP 36.7; O2SAT 93
[2022-11-04] MEDS: OMEPRAZOLE 20 MG CAPSULE DR PO (07:25)
[2022-11-04] MEDS: LEVOTHYROXINE 50 MCG TABLET PO (07:25)
[2022-11-04] MEDS: ACETAMINOPHEN 325 MG TABLET 650 MG PO ×2 (07:25→16:02)
[2022-11-04] MEDS: ASPIRIN 81 MG TABLET EC PO (07:26)
[2022-11-04] MEDS: NON-FORMULARY MEDICATION INH (07:26)
[2022-11-04] MEDS: SERTRALINE 100 MG TABLET 125 MG PO (07:26)
[2022-11-04] MEDS: METOPROLOL SUCCINATE (XL) 25 MG TAB PO (07:26)
[2022-11-04 10:11] VITALS: TEMP 36.4; O2SAT 94
--- NOTE | 2022-11-04 11:55 | PC.NURSE ---
COVID OUTBREAK TESTING (Antigen): Resident provided verbal consent for outbreak COVID testing. Resident is currently asymptomatic.? Resident/family will be notified only if resident is positive.
[2022-11-04 13:04] LABS: SARS PCR* Negative SARS-CoV-2 (Negative)
[2022-11-04] MEDS: MIRTAZAPINE 15 MG TABLET 7.5 MG PO (19:50)
[2022-11-04] MEDS: MELATONIN 3 MG TABLET 5 MG PO (19:50)
[2022-11-04] MEDS: DONEPEZIL 5 MG TABLET PO (19:50)
[2022-11-04 21:26] VITALS: TEMP 37.5; O2SAT 93
[2022-11-04 23:00] VITALS: TEMP 37.1; O2SAT 94
[2022-11-05] MEDS: TRAMADOL HCL 50 MG TABLET PO (00:55)
--- NOTE | 2022-11-05 03:10 | PC.NURSE ---
WEEKLY CHARTING - WEEK 3: Vital signs reviewed. Temporary and comprehensive care plan reviewed - no change. Per weekly skin assessment, no skin integrity issues at this time. Frequent urinary incontinence with occasional continence. Primarily continent of bowels with occasional incontinence. Wears pull-up. Staff to check resident Q2 hours and provide toileting as needed. Is up to toilet frequently at night. Requires staff assist of 1 for transfer/ambulation to toilet, management of incontinent product, clothing adjustment, and farhan-cares.
--- NOTE | 2022-11-05 05:51 | PC.NURSE ---
BEHAVIOR: At beginning of shift, BRIDGE ATTACHER was assisting resident with toileting and resident began yelling and striking out at BRIDGE ATTACHER. This nurse took over care of resident at that time and for the remainder of the night with no further incident. Has been pleasant and cooperative with life underwriter.
[2022-11-05] MEDS: LEVOTHYROXINE 50 MCG TABLET PO (06:55)
[2022-11-05] MEDS: OMEPRAZOLE 20 MG CAPSULE DR PO (06:55)
[2022-11-05] MEDS: NON-FORMULARY MEDICATION INH (07:01)
[2022-11-05] MEDS: SERTRALINE 100 MG TABLET 125 MG PO (07:01)
[2022-11-05] MEDS: METOPROLOL SUCCINATE (XL) 25 MG TAB PO (07:02)
[2022-11-05] MEDS: ASPIRIN 81 MG TABLET EC PO (07:02)
[2022-11-05] MEDS: ACETAMINOPHEN 325 MG TABLET 650 MG PO ×2 (07:02→15:28)
--- NOTE | 2022-11-05 09:51 | PC.NURSE ---
Week #3 - Toileting: Comprehensive care plan reviewed, no changes made. Nothing added to temporary care plan. Resident is mostly continent of bowels, frequently incontinent of bladder with some control. Needs extensive assist of one with toileting. Staff to toilet before/after meals and per request. Transfers and ambulates to the bathroom wit gait belt, walker and assist. Wears medium pull up. Pads, farhan cares, clothing adjustment done by staff. Vital signs reviewed, no concerns. FURNITURE SPRAYER here order for UA/UC, clean catch done. Daughter reported resident telling her of urinary frequency and would like test for UTI. Skin: Pressure sore on coccyx healed. Skin is routinely checked during cares and on bath day.
--- NOTE | 2022-11-05 09:56 | PC.NURSE ---
WEEKLY CHARTING - WEEK 3: VS reviewed - BP slightly high periodically. All others WNL. Temporary care plan - No changes Skin assessment - No areas of concern. Coccyx is completely healed. Skin is dry, intact, warm, appropriate color, elastic. Bowel: Primarily continent - occasionally incontinent. Extensive staff Ax1. Pt to use call light for help transferring to bathroom. Staff to check pt brief and offer toilet Q2hr and PRN. Bladder: Incontinent. Extensive staff Ax1. Pt to use call light for help transferring to bathroom. Staff to check pt brief and offer toilet Q2hr and PRN. Staff to monitor for S/S UTI
[2022-11-05 10:42] VITALS: TEMP 36.4; O2SAT 96
[2022-11-05 11:31] LABS: Appearance Urine Clear (Clear); Bilirubin Urine Negative (Negative); Blood Urine Negative (Negative); Color Urine Yellow (Yellow); Glucose Urine Negative (Negative); Ketones Urine Negative (Negative); Leukocyte Esterase Urine Negative (Negative); Nitrite Urine Negative (Negative); Protein Urine Negative (Negative); Specific Gravity Urine 1.025 (1.000-1.030); Urobilinogen Urine 0.2 (0.2-1.0); pH Urine 5.5 (5.0-8.5)
[2022-11-05 11:50] LABS: Bacteria Urine Few; RBC Urine 0-2 (0-2); Squamous Epithelial Cell Urine Few (None-Few); WBC Urine 0-2 (0-5)
[2022-11-05] MEDS: MELATONIN 3 MG TABLET 5 MG PO (19:23)
[2022-11-05] MEDS: DONEPEZIL 5 MG TABLET PO (19:23)
[2022-11-05] MEDS: MIRTAZAPINE 15 MG TABLET 7.5 MG PO (19:23)
[2022-11-05 21:06] VITALS: TEMP 36.3; O2SAT 97
[2022-11-05 23:00] VITALS: TEMP 36.6; O2SAT 93
[2022-11-06] MEDS: NON-FORMULARY MEDICATION PO (05:24)
[2022-11-06] MEDS: OMEPRAZOLE 20 MG CAPSULE DR PO (06:47)
[2022-11-06] MEDS: LEVOTHYROXINE 50 MCG TABLET PO (06:47)
[2022-11-06 07:00] VITALS: TEMP 36.7; O2SAT 98
[2022-11-06] MEDS: SERTRALINE 100 MG TABLET 125 MG PO (07:46)
[2022-11-06] MEDS: NON-FORMULARY MEDICATION INH (07:46)
[2022-11-06] MEDS: ASPIRIN 81 MG TABLET EC PO (07:46)
[2022-11-06] MEDS: METOPROLOL SUCCINATE (XL) 25 MG TAB PO (07:46)
[2022-11-06] MEDS: ACETAMINOPHEN 325 MG TABLET 650 MG PO ×2 (07:46→16:10)
--- NOTE | 2022-11-06 11:48 | PC.PHA ---
MEDICATION REVIEW MEDICATION MONITORING:Sertraline 125 mg daily, mirtazapine 7.5 mg hs, melatonin 5 mg IRREGULARITY/COMMENTS:Patient continues on same medication regimen that was adjusted 09/10/22 and reviewed by provider 09/19/22, since then patient has been doing ok per nursing notes reviewed and in light of that I do not feel a GDR is clinically indicated at time of October review. Other medications reviewed, prn tramadol needs remain the same compared to September needs. SUGGESTED COURSE OF ACTION: No recommendations for October.
[2022-11-06 15:00] VITALS: TEMP 37.1; O2SAT 91
[2022-11-06] MEDS: MELATONIN 3 MG TABLET 5 MG PO (19:46)
[2022-11-06] MEDS: DONEPEZIL 5 MG TABLET PO (19:46)
[2022-11-06] MEDS: MIRTAZAPINE 15 MG TABLET 7.5 MG PO (19:46)
[2022-11-06 23:00] VITALS: TEMP 37; O2SAT 94
[2022-11-07] MEDS: TRAMADOL HCL 50 MG TABLET PO (03:21)
[2022-11-07] MEDS: OMEPRAZOLE 20 MG CAPSULE DR PO (06:58)
[2022-11-07] MEDS: LEVOTHYROXINE 50 MCG TABLET PO (06:59)
[2022-11-07 07:00] VITALS: TEMP 36.5; O2SAT 94
[2022-11-07] MEDS: ASPIRIN 81 MG TABLET EC PO (07:10)
[2022-11-07] MEDS: NON-FORMULARY MEDICATION INH (07:10)
[2022-11-07] MEDS: METOPROLOL SUCCINATE (XL) 25 MG TAB PO (07:10)
[2022-11-07] MEDS: SERTRALINE 100 MG TABLET 125 MG PO (07:10)
[2022-11-07] MEDS: ACETAMINOPHEN 325 MG TABLET 650 MG PO ×2 (07:10→15:29)
[2022-11-07 08:00] VITALS: BP 144/82; PULSE 76; RESP 18; TEMP 36.5; O2SAT 94; BMI 221.2
[2022-11-07 15:00] VITALS: TEMP 37.1; O2SAT 97
[2022-11-07] MEDS: DONEPEZIL 5 MG TABLET PO (19:01)
[2022-11-07] MEDS: MELATONIN 3 MG TABLET 5 MG PO (19:01)
[2022-11-07] MEDS: MIRTAZAPINE 15 MG TABLET 7.5 MG PO (19:01)
[2022-11-07 23:00] VITALS: TEMP 36.9; O2SAT 93
[2022-11-08] MEDS: TRAMADOL HCL 50 MG TABLET PO (00:13)
[2022-11-08] MEDS: OMEPRAZOLE 20 MG CAPSULE DR PO (07:09)
[2022-11-08] MEDS: METOPROLOL SUCCINATE (XL) 25 MG TAB PO (07:10)
[2022-11-08] MEDS: LEVOTHYROXINE 50 MCG TABLET PO (07:10)
[2022-11-08] MEDS: ACETAMINOPHEN 325 MG TABLET 650 MG PO ×2 (07:10→15:54)
[2022-11-08] MEDS: ASPIRIN 81 MG TABLET EC PO (07:10)
[2022-11-08] MEDS: SERTRALINE 100 MG TABLET 125 MG PO (07:11)
[2022-11-08] MEDS: NON-FORMULARY MEDICATION INH (07:11)
[2022-11-08 09:59] VITALS: TEMP 36.6; O2SAT 94
--- NOTE | 2022-11-08 11:40 | PC.NURSE ---
UA/UC: Result reviewed by Ant ALEX. Order: Nitrofurantoin 100mg BID X 5 days.
--- NOTE | 2022-11-08 12:06 | PC.NURSE ---
Family Update: Daughter contacted and updated of UC result. Resident started on ABO.
[2022-11-08 15:00] VITALS: TEMP 37.3; O2SAT 91
[2022-11-08] MEDS: DONEPEZIL 5 MG TABLET PO (19:19)
[2022-11-08] MEDS: MELATONIN 3 MG TABLET 5 MG PO (19:19)
[2022-11-08] MEDS: NITROFURANTOIN MONOHYD MACRO 100 MG CAPSULE PO (19:19)
[2022-11-08] MEDS: MIRTAZAPINE 15 MG TABLET 7.5 MG PO (19:19)
[2022-11-08 21:15] VITALS: TEMP 37.1
[2022-11-08 23:00] VITALS: TEMP 36.5; O2SAT 93
[2022-11-09] MEDS: TRAMADOL HCL 50 MG TABLET PO ×2 (00:23→22:41)
--- NOTE | 2022-11-09 05:11 | PC.NURSE ---
Pain: In the state of moaning and groaning, this resident lamented on excruciating pain to right hip, which also radiated to the knee. 20 minutes of Ice pack and 20 minutes of warm blanket application, comfort-reposition performed as tolerated, rest encouraged, and administering PRN Tramadol 50 mg were the interventions implemented to manage the pain. Will continue to monitor.
[2022-11-09] MEDS: OMEPRAZOLE 20 MG CAPSULE DR PO (07:08)
[2022-11-09] MEDS: NITROFURANTOIN MONOHYD MACRO 100 MG CAPSULE PO ×2 (07:08→16:47)
[2022-11-09] MEDS: ACETAMINOPHEN 325 MG TABLET 650 MG PO ×2 (07:08→16:47)
[2022-11-09] MEDS: METOPROLOL SUCCINATE (XL) 25 MG TAB PO (07:08)
[2022-11-09] MEDS: ASPIRIN 81 MG TABLET EC PO (07:08)
[2022-11-09] MEDS: LEVOTHYROXINE 50 MCG TABLET PO (07:08)
[2022-11-09] MEDS: NON-FORMULARY MEDICATION INH (07:09)
[2022-11-09] MEDS: SERTRALINE 100 MG TABLET 125 MG PO (07:09)
[2022-11-09 09:47] VITALS: TEMP 36.6; O2SAT 97
[2022-11-09 15:00] VITALS: TEMP 36.9; O2SAT 91
[2022-11-09] MEDS: DONEPEZIL 5 MG TABLET PO (19:11)
[2022-11-09] MEDS: MELATONIN 3 MG TABLET 5 MG PO (19:11)
[2022-11-09] MEDS: MIRTAZAPINE 15 MG TABLET 7.5 MG PO (19:11)
[2022-11-09 21:00] VITALS: TEMP 36.9
[2022-11-09 23:00] VITALS: TEMP 36.4; O2SAT 95
[2022-11-10] MEDS: ASPIRIN 81 MG TABLET EC PO (07:14)
[2022-11-10] MEDS: LEVOTHYROXINE 50 MCG TABLET PO (07:14)
[2022-11-10] MEDS: OMEPRAZOLE 20 MG CAPSULE DR PO (07:14)
[2022-11-10] MEDS: ACETAMINOPHEN 325 MG TABLET 650 MG PO ×2 (07:14→15:13)
[2022-11-10] MEDS: NITROFURANTOIN MONOHYD MACRO 100 MG CAPSULE PO ×2 (07:15→15:13)
[2022-11-10] MEDS: METOPROLOL SUCCINATE (XL) 25 MG TAB PO (07:15)
[2022-11-10] MEDS: NON-FORMULARY MEDICATION INH (07:15)
[2022-11-10] MEDS: SERTRALINE 100 MG TABLET 125 MG PO (07:16)
[2022-11-10 09:52] VITALS: TEMP 36.5; O2SAT 95
[2022-11-10 15:00] VITALS: TEMP 37.3; O2SAT 93
[2022-11-10 16:14] VITALS: TEMP 37.3
[2022-11-10] MEDS: TRAMADOL HCL 50 MG TABLET PO (18:32)
[2022-11-10 19:28] VITALS: BP 155/84; PULSE 69; RESP 20; TEMP 37.2; O2SAT 93
[2022-11-10] MEDS: MIRTAZAPINE 15 MG TABLET 7.5 MG PO (19:52)
[2022-11-10] MEDS: DONEPEZIL 5 MG TABLET PO (19:52)
[2022-11-10] MEDS: MELATONIN 3 MG TABLET 5 MG PO (19:52)
--- NOTE | 2022-11-10 21:29 | PC.NURSE ---
Resident bumped the right/back side of her head on bedside table while getting into bed this evening at 1928. Was turning to lay down and lifting legs onto bed and fell backwards hitting head on bedside table. No bump or raised area on head. VS taken T 99, P 69, RR 20, BP 155/84 O2 sats 93% on RA. Neuro checks completed. PERRL. Hand grasps equal and strong. Ice applied at this time. Resident stated no relief from ice and thinks that it was hurting it more than it was. Rated pain 2/10. Refused Tylenol at this time. Intervention in place for VS and neuros [id number]. Noted in ENTEROSTOMAL NURSE book.
[2022-11-10 23:00] VITALS: TEMP 36.1; O2SAT 94
[2022-11-11 00:28] VITALS: BP 123/77; PULSE 76; RESP 18; TEMP 36.1; O2SAT 94
[2022-11-11] MEDS: TRAMADOL HCL 50 MG TABLET PO (01:00)
[2022-11-11 04:00] VITALS: BP 147/80; PULSE 59; RESP 18; TEMP 36.6; O2SAT 92
--- NOTE | 2022-11-11 05:31 | PC.NURSE ---
Fall follow up Resident did not complain about the side of her head, she called for ache on her right leg. She was found at the sink of her toilet early this morning. She did not get much sleep last night .
[2022-11-11] MEDS: OMEPRAZOLE 20 MG CAPSULE DR PO (07:15)
[2022-11-11] MEDS: LEVOTHYROXINE 50 MCG TABLET PO (07:15)
[2022-11-11] MEDS: ACETAMINOPHEN 325 MG TABLET 650 MG PO ×2 (07:16→15:48)
[2022-11-11] MEDS: ASPIRIN 81 MG TABLET EC PO (07:16)
[2022-11-11] MEDS: METOPROLOL SUCCINATE (XL) 25 MG TAB PO (07:17)
[2022-11-11] MEDS: NON-FORMULARY MEDICATION INH (07:17)
[2022-11-11] MEDS: NITROFURANTOIN MONOHYD MACRO 100 MG CAPSULE PO ×2 (07:17→15:48)
[2022-11-11] MEDS: SERTRALINE 100 MG TABLET 125 MG PO (07:18)
[2022-11-11 10:46] VITALS: TEMP 36.6; O2SAT 98
--- NOTE | 2022-11-11 10:48 | PC.NURSE ---
Status: Resident has been at baseline for self, denies any pain from hitting head.
--- NOTE | 2022-11-11 11:57 | PC.SPIRITC ---
I provided visit for support and connection, along with supplying Synagogue devotion.
[2022-11-11 14:11] LABS: SARS PCR* Negative SARS-CoV-2 (Negative)
[2022-11-11] MEDS: MIRTAZAPINE 15 MG TABLET 7.5 MG PO (19:57)
[2022-11-11] MEDS: DONEPEZIL 5 MG TABLET PO (19:57)
[2022-11-11] MEDS: MELATONIN 3 MG TABLET 5 MG PO (19:57)
[2022-11-11 21:04] VITALS: TEMP 36.6; O2SAT 94
[2022-11-11 21:05] VITALS: TEMP 36.6
[2022-11-11 23:00] VITALS: TEMP 36.5; O2SAT 94
[2022-11-12] MEDS: TRAMADOL HCL 50 MG TABLET PO ×2 (05:13→23:19)
[2022-11-12] MEDS: LEVOTHYROXINE 50 MCG TABLET PO (07:00)
[2022-11-12] MEDS: OMEPRAZOLE 20 MG CAPSULE DR PO (07:00)
[2022-11-12] MEDS: NITROFURANTOIN MONOHYD MACRO 100 MG CAPSULE PO ×2 (07:07→16:26)
[2022-11-12] MEDS: ACETAMINOPHEN 325 MG TABLET 650 MG PO ×2 (07:07→16:26)
[2022-11-12] MEDS: NON-FORMULARY MEDICATION INH (07:07)
[2022-11-12] MEDS: ASPIRIN 81 MG TABLET EC PO (07:07)
[2022-11-12] MEDS: METOPROLOL SUCCINATE (XL) 25 MG TAB PO (07:07)
[2022-11-12] MEDS: SERTRALINE 100 MG TABLET 125 MG PO (07:08)
[2022-11-12 11:20] VITALS: TEMP 36.4; O2SAT 99
[2022-11-12 13:42] VITALS: BP 106/67; PULSE 65; RESP 20; TEMP 36.4; O2SAT 99
--- NOTE | 2022-11-12 14:21 | PC.NURSE ---
Week #4: Comprehensive care plan reviewed, no changes made. Nothing added to temporary care plan. No changes noted in communication, hearing, vision, or orientation. Is able to make needs known. Staff also anticipates. Is [place], wears bilateral hearing aids. Vision impairment is corrected with glasses. Has cognitive deficit r/t dementia. Chronic health condition stable. Does not self administer medications. Vital signs reviewed, no concerns. Mood/Behavior: Has intermittent confusion. Is on Remeron 7.5mg @ HS. No adversed
--- NOTE | 2022-11-12 14:33 | PC.NURSE ---
Week #4: Comprehensive care plan reviewed, no changes made. Nothing added to temporary care plan. No changes noted in communication, hearing, vision or orientation. Resident does communicate needs. Staff also anticipates. Is [place], wears bilateral hearing aids. Has vision impairment, corrected with glasses.Has cognitive impairment r/t dementia. Chronic health condition stable. Does not self administer ,medications. Vital signs reviewed, no concerns. Mood/Behavior: Has intermittent confusion. Is on Remeron 7.5mg @ HS with no adverse effects noted.
[2022-11-12 15:00] VITALS: TEMP 36.2; O2SAT 99
[2022-11-12 17:00] VITALS: BP 106/67; PULSE 65; RESP 18; TEMP 36.2; O2SAT 95
[2022-11-12] MEDS: MELATONIN 3 MG TABLET 5 MG PO (19:20)
[2022-11-12] MEDS: DONEPEZIL 5 MG TABLET PO (19:20)
[2022-11-12] MEDS: MIRTAZAPINE 15 MG TABLET 7.5 MG PO (19:26)
[2022-11-12 20:47] VITALS: BP 112/76; BP 118/77; PULSE 65; RESP 18; TEMP 36.2; O2SAT 95
[2022-11-12 23:00] VITALS: TEMP 36.8; O2SAT 95
[2022-11-13] VITALS (8 sets, daily range): BP systolic 121–160; BP diastolic 70–78; PULSE 66–78; RESP 18–20; TEMP 36.4–37.1; O2SAT 93–97
[2022-11-13] MEDS: NON-FORMULARY MEDICATION PO (05:05)
--- NOTE | 2022-11-13 05:36 | PC.NURSE ---
Vital signs WNL and neuros intact. Denies any headache, blurred vision, or nausea.
[2022-11-13] MEDS: OMEPRAZOLE 20 MG CAPSULE DR PO (07:02)
[2022-11-13] MEDS: LEVOTHYROXINE 50 MCG TABLET PO (07:03)
[2022-11-13] MEDS: ACETAMINOPHEN 325 MG TABLET 650 MG PO ×2 (08:09→16:57)
[2022-11-13] MEDS: METOPROLOL SUCCINATE (XL) 25 MG TAB PO (08:09)
[2022-11-13] MEDS: SERTRALINE 100 MG TABLET 125 MG PO (08:09)
[2022-11-13] MEDS: NON-FORMULARY MEDICATION INH (08:09)
[2022-11-13] MEDS: NITROFURANTOIN MONOHYD MACRO 100 MG CAPSULE PO (08:09)
[2022-11-13] MEDS: ASPIRIN 81 MG TABLET EC PO (08:09)
--- NOTE | 2022-11-13 08:16 | PC.NURSE ---
VS/Neuro: Resident in room up in her wheelchair. Denies headache, nausea, blurred vision. Did c/o (R) leg aches. BRENDA. Hand grasps fine.
[2022-11-13] MEDS: MELATONIN 3 MG TABLET 5 MG PO (19:10)
[2022-11-13] MEDS: MIRTAZAPINE 15 MG TABLET 7.5 MG PO (19:10)
[2022-11-13] MEDS: DONEPEZIL 5 MG TABLET PO (19:10)
--- NOTE | 2022-11-13 21:34 | PC.NURSE ---
Kuldeep: PERRLA intact. Equal strength in hand hand grasps. Level of consciousness is unchanged from baseline. No new concerns at this time.?
[2022-11-14] MEDS: TRAMADOL HCL 50 MG TABLET PO ×2 (02:21→19:10)
[2022-11-14] MEDS: NYSTATIN CREAM 30 GM 1 APPLIC TOPICAL ×2 (06:30→20:47)
[2022-11-14] MEDS: METOPROLOL SUCCINATE (XL) 25 MG TAB PO (07:06)
[2022-11-14] MEDS: OMEPRAZOLE 20 MG CAPSULE DR PO (07:06)
[2022-11-14] MEDS: LEVOTHYROXINE 50 MCG TABLET PO (07:06)
[2022-11-14] MEDS: ASPIRIN 81 MG TABLET EC PO (07:06)
[2022-11-14] MEDS: ACETAMINOPHEN 325 MG TABLET 650 MG PO ×2 (07:06→16:18)
[2022-11-14] MEDS: SERTRALINE 100 MG TABLET 125 MG PO (07:07)
[2022-11-14] MEDS: NON-FORMULARY MEDICATION INH (07:07)
[2022-11-14 08:00] VITALS: BMI 21.7
[2022-11-14 10:16] VITALS: TEMP 36.6; O2SAT 94
[2022-11-14] MEDS: DONEPEZIL 5 MG TABLET PO (19:10)
[2022-11-14] MEDS: MIRTAZAPINE 15 MG TABLET 7.5 MG PO (19:10)
[2022-11-14] MEDS: MELATONIN 3 MG TABLET 5 MG PO (19:10)
[2022-11-14 21:28] VITALS: TEMP 36.2; O2SAT 95
--- NOTE | 2022-11-14 21:48 | PC.NURSE ---
Skin: Resident has redness under right breast and in left groin. Wash, dry and Nystatin cream BID.
[2022-11-14 23:00] VITALS: TEMP 36.8; O2SAT 94
[2022-11-15] MEDS: LEVOTHYROXINE 50 MCG TABLET PO (06:42)
[2022-11-15] MEDS: OMEPRAZOLE 20 MG CAPSULE DR PO (06:42)
[2022-11-15 07:00] VITALS: TEMP 36.8; O2SAT 97
[2022-11-15] MEDS: NON-FORMULARY MEDICATION INH (07:54)
[2022-11-15] MEDS: METOPROLOL SUCCINATE (XL) 25 MG TAB PO (07:54)
[2022-11-15] MEDS: ACETAMINOPHEN 325 MG TABLET 650 MG PO ×2 (07:54→15:13)
[2022-11-15] MEDS: ASPIRIN 81 MG TABLET EC PO (07:54)
[2022-11-15] MEDS: SERTRALINE 100 MG TABLET 125 MG PO (07:55)
[2022-11-15 15:00] VITALS: TEMP 36.4; O2SAT 96
[2022-11-15] MEDS: DONEPEZIL 5 MG TABLET PO (19:08)
[2022-11-15] MEDS: TRAMADOL HCL 50 MG TABLET PO (19:08)
[2022-11-15] MEDS: MELATONIN 3 MG TABLET 5 MG PO (19:08)
[2022-11-15] MEDS: MIRTAZAPINE 15 MG TABLET 7.5 MG PO (19:08)
[2022-11-15 23:00] VITALS: TEMP 36.9; O2SAT 96
[2022-11-16] VITALS (8 sets, daily range): BP systolic 137–157; BP diastolic 65–82; PULSE 74–80; RESP 18; TEMP 36.6–37.4; O2SAT 93–100
[2022-11-16] MEDS: LEVOTHYROXINE 50 MCG TABLET PO (07:15)
[2022-11-16] MEDS: OMEPRAZOLE 20 MG CAPSULE DR PO (07:15)
[2022-11-16] MEDS: ACETAMINOPHEN 325 MG TABLET 650 MG PO ×2 (07:15→15:21)
[2022-11-16] MEDS: ASPIRIN 81 MG TABLET EC PO (07:15)
[2022-11-16] MEDS: METOPROLOL SUCCINATE (XL) 25 MG TAB PO (07:16)
[2022-11-16] MEDS: NON-FORMULARY MEDICATION INH (07:18)
[2022-11-16] MEDS: SERTRALINE 100 MG TABLET 125 MG PO (07:18)
--- NOTE | 2022-11-16 17:30 | PC.NURSE ---
Neuro: PERRLA intact. Equal strength in hand grasps. Level of consciousness is unchanged from baseline. Able to perform and tolerate ROM.?Denies headache and blurry vision.
--- NOTE | 2022-11-16 18:04 | LTC.FALL ---
[facility] Fall Note: o Fall Date: 11/16/22 o Fall Time: 17:25 o What happened? Resident was heard screaming, somebody help me,as she was found sitting on her bathroom floor. o Who found the resident and who responded? DARNI assigned to her, Syl. o What was the resident doing? She brought herself to the bathroom without assistance. o How the resident was found (knees, left side, arm under them), any hazards (cords, objects, nonskid slippers) brakes on? Proper equipment? Was found sitting on her bathroom floor. o Did you assess for head trauma, spinal injuries, skeletal injuries, neurological changes and status, and head and neck pain? What did you find? Yes - no concerns. Denies hitting her head. o Did you assess ROM in shoulders, elbows, hips, knees, any other affected areas, unless there is suspected spinal injury. Able to perform and tolerate ROM. o Did you Assess for pain or discomfort? Exacerbation of chronic back pain due to the fall incident - Scheduled/PRN pain regimen would continue as ordered. o What are the injuries and how are they being treated? No injuries at this time, but will continue to monitor for any abnormal changes in mobility and, or health status. o How was the resident transferred from the floor? EZ with 3 staff members assistance. o Did you call the MD or put a note in the POTATO LOADER book? Yes. o Enter vital signs. BP-157/80, P-74, R-18, O2-95%, T-99.3 o Did you notify family? Yes, daughterAlison is notified. o What was the root cause of the fall? Why did it happen? Impulsive, impatient, and forgetfulness. o Create an IMMEDIATE INTERVENTION to ensure that this won't immediately happen again. (Put in temporary care plan too) o Complete Safety report and huddle (now one form) o If resident is seen in ED or fractured something, note that you started a [facility] Report process. Instructions are at the East nurse's desk in a red binder labeled [facility] report.
--- NOTE | 2022-11-16 18:25 | PC.NURSE ---
Neuro: Equal strength in hand grasps. Level of consciousness is unchanged from baseline. Able to perform and tolerate ROM.?Denies headache and blurry vision. Able to follow finger movement. No vomiting episode noted or reported.
--- NOTE | 2022-11-16 18:38 | PC.NURSE ---
Family Update: Daughter, Alison Whitley, has been notified on fall incident, at 1800.
--- NOTE | 2022-11-16 18:40 | PC.NURSE ---
DOCTOR OF DENTAL MEDICINE Update: [facility] has been notified about fall incident via e-mail.
[2022-11-16] MEDS: MIRTAZAPINE 15 MG TABLET 7.5 MG PO (19:20)
[2022-11-16] MEDS: TRAMADOL HCL 50 MG TABLET PO (19:20)
[2022-11-16] MEDS: MELATONIN 3 MG TABLET 5 MG PO (19:20)
[2022-11-16] MEDS: DONEPEZIL 5 MG TABLET PO (19:20)
--- NOTE | 2022-11-16 21:25 | PC.NURSE ---
Fall follow up: Vital signs are within resident's normal ranges. Neuro assessment findings are normal for resident
--- NOTE | 2022-11-16 21:39 | PC.NURSE ---
Pain: Approximately 1900, resident C/O 8/10 pain to lower back which is chronic. 20 minutes of Ice pack and 20 minutes of warm blanket application, comfort-reposition performed as tolerated, rest encouraged, and administering scheduled Tramadol 50 mg given. Will continue to monitor.
[2022-11-17] VITALS (9 sets, daily range): BP systolic 131–147; BP diastolic 71–78; PULSE 70–80; RESP 16–18; TEMP 36.6–36.9; O2SAT 94–96
[2022-11-17] MEDS: TRAMADOL HCL 50 MG TABLET PO ×3 (00:36→19:50)
--- NOTE | 2022-11-17 00:47 | PC.NURSE ---
FALL FOLLOW-UP: Vital signs WNL. Neuros intact. LOC at baseline. ROM and mobility at baseline. C/o back pain. PRN tramadol administered per order as resident requested a couple aspirin for my back. Declined application of ice or heat when offered.
--- NOTE | 2022-11-17 06:30 | PC.NURSE ---
Pain: Resident is weeping, moaning, and groaning as she C/O excruciating lower back pain that pain regimen in place has not produce much relief so far. Resident is unable to move in bed and does not want any morning routine cares to be done. Griselda [facility] contacted, and waiting for response from on-call provider.
--- NOTE | 2022-11-17 06:49 | PC.NURSE ---
New Order: This author spoke to an on-call provider, Dr. Hudson, concerning this resident's C/O unbearable lower back pain exacerbated by yesterday's fall incident. Dr. Hudson gave a RBVO as follows: 1) Increase Acetaminophen to 1000 mg PO BID; then Q4H PRN for lower back pain. 2) CT Lumber Spine WO CON due to C/O severe lower back pain related to fall incident on 11/16/22.
--- NOTE | 2022-11-17 06:55 | PC.NURSE ---
Family Update: Resident daughter, Alison, has being updated on her mother's post fall health status, and new the orders from Dr. Hudson. She verbalized her consent and, or support for that. Alison indicated to come in at 0720 to visit with her. mother.
--- NOTE | 2022-11-17 07:00 | PC.NURSE ---
Out of Facility: Resident is transported from [facility] to [facility] Radiology department for CT Lumber Spine Imagery.
--- NOTE | 2022-11-17 07:15 | CRLHL7_ITS ---
For Patients: As a result of the Century Cures Act, medical imaging exams and procedure reports are released immediately into your electronic medical record. You may view this report before your referring provider. If you have questions, please contact your health care provider. INDICATION: Fall. Low back pain. TECHNIQUE: Noncontrast CT images acquired through the lumbar spine. COMPARISON: None. FINDINGS: Diffuse osseous demineralization. Mild to moderate T11 and mild T12 superior endplate compression deformities are age-indeterminate, though chronic appearing. No associated retropulsion. No acute fracture in the lumbar spine. Straightening of the lumbar lordosis. Mild biconvex lumbar curvature. Severe multilevel disc height loss. Posterior disc bulging, endplate spondylitic ridging, and ligamentum flavum thickening contribute to moderate advanced spinal canal stenosis at L1-2 as well as advanced spinal canal stenosis at L2-3 and L4-5. Severe multilevel facet arthropathy contributing to advanced neural foraminal stenosis bilaterally at L1-2 and L3-4. Sacroiliac joint degenerative changes. Aortoiliac atherosclerotic calcifications. Hiatal hernia. 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 Cholelithiasis. IMPRESSION: 1. Compression deformities of the T11 and T12 superior endplates are age-indeterminate, though chronic appearing. There is no associated retropulsion. 2. No acute fracture in the lumbar spine. 3. Advanced multilevel lumbar spondylosis. Please note that all CT scans at this facility use dose modulation, iterative reconstruction, and/or weight-based dosing when appropriate to reduce radiation dose to as low as reasonably achievable. Dictated by Mak Cabral MD @ 11/17/2022 8:48:25 AM (Electronically Signed)
[2022-11-17] MEDS: LEVOTHYROXINE 50 MCG TABLET PO (07:51)
[2022-11-17] MEDS: OMEPRAZOLE 20 MG CAPSULE DR PO (07:51)
[2022-11-17] MEDS: METOPROLOL SUCCINATE (XL) 25 MG TAB PO (08:34)
[2022-11-17] MEDS: NON-FORMULARY MEDICATION INH (08:34)
[2022-11-17] MEDS: ASPIRIN 81 MG TABLET EC PO (08:34)
[2022-11-17] MEDS: SERTRALINE 100 MG TABLET 125 MG PO (08:34)
--- NOTE | 2022-11-17 11:38 | PC.NURSE ---
Family Update: Resident daughter, Alison, has been updated on her mother's post fall health status, and new the orders from Dr. Hudson. She verbalized her consent and, or support for that. Alison indicated to come in at 0720 to visit with her mother.
[2022-11-17] MEDS: ACETAMINOPHEN 500 MG TABLET 1000 MG PO (16:01)
[2022-11-17] MEDS: DONEPEZIL 5 MG TABLET PO (19:50)
[2022-11-17] MEDS: MELATONIN 3 MG TABLET 5 MG PO (19:50)
[2022-11-17] MEDS: MIRTAZAPINE 15 MG TABLET 7.5 MG PO (19:50)
--- NOTE | 2022-11-17 22:00 | PC.NURSE ---
Fall follow-up: Vital signs obtained and neuro assessment findings for the entire day are expected, and are normal. Pain is under control at this time.
[2022-11-18] VITALS (8 sets, daily range): BP systolic 115–143; BP diastolic 66–84; PULSE 61–82; RESP 18; TEMP 36.3–37.1; O2SAT 92–96
[2022-11-18] MEDS: TRAMADOL HCL 50 MG TABLET PO ×3 (04:31→19:34)
--- NOTE | 2022-11-18 05:48 | PC.NURSE ---
FALL FOLLOW-UP: Vital signs at baseline for resident. Neuros intact. Hand grasps strong and equal bilaterally. Continues to c/o back pain. Requested/received PRN tramadol at 0431 which was somewhat effective.
[2022-11-18] MEDS: LEVOTHYROXINE 50 MCG TABLET PO (07:04)
[2022-11-18] MEDS: OMEPRAZOLE 20 MG CAPSULE DR PO (07:04)
[2022-11-18] MEDS: ACETAMINOPHEN 500 MG TABLET 1000 MG PO ×3 (07:05→23:07)
[2022-11-18] MEDS: METOPROLOL SUCCINATE (XL) 25 MG TAB PO (07:05)
[2022-11-18] MEDS: ASPIRIN 81 MG TABLET EC PO (07:05)
[2022-11-18] MEDS: NON-FORMULARY MEDICATION INH (07:05)
[2022-11-18] MEDS: SERTRALINE 100 MG TABLET 125 MG PO (07:06)
--- NOTE | 2022-11-18 09:20 | PC.NURSE ---
Fall F/U: Vitals done and charted. SALLIE, hand grasps equal, ROM good. Did express pain in hip which is not new.
[2022-11-18] MEDS: MAG HYDROX/ALUMINUM HYD/SIMETH 30 ML ORAL.SUSP PO (10:24)
--- NOTE | 2022-11-18 10:24 | PC.NURSE ---
Skin: No redness to breasts or abd area. Intervention D/C'd
--- NOTE | 2022-11-18 10:30 | PC.NURSE ---
COVID OUTBREAK TESTING Residents daughter provided verbal consent for outbreak COVID testing. Resident is currently asymptomatic.? Resident/family will be notified only if resident is positive.
[2022-11-18 12:02] LABS: SARS PCR* Negative SARS-CoV-2 (Negative)
--- NOTE | 2022-11-18 13:33 | PC.NURSE ---
Fall F/U: SALLIE, ROM good, hand grasps equal, vitals done and charted. No further complaints of pain
--- NOTE | 2022-11-18 15:50 | PC.NURSE ---
Fall intervention: 30 min checks for set up for safety. Staff updated. Intervention placed. Care plan/aide sheets updated.
--- NOTE | 2022-11-18 17:00 | PC.NURSE ---
Fall f/u: Resident in room going through phone book, VS and neuro checks are okay. States that she is having some pain but doesn't want pain meds until she goes to bed.
[2022-11-18] MEDS: MIRTAZAPINE 15 MG TABLET 7.5 MG PO (19:34)
[2022-11-18] MEDS: MELATONIN 3 MG TABLET 5 MG PO (19:34)
[2022-11-18] MEDS: DONEPEZIL 5 MG TABLET PO (19:34)
--- NOTE | 2022-11-18 21:00 | PC.NURSE ---
Fall f/u: Resident in bed sleeping, woke up for fall assessment. VS and Neuro check okay. Denies pain.
[2022-11-19] VITALS (8 sets, daily range): BP systolic 126–139; BP diastolic 68–79; PULSE 60–82; RESP 18–20; TEMP 36.3–36.9; O2SAT 94–97
--- NOTE | 2022-11-19 01:34 | PC.NURSE ---
FALL FOLLOW-UP: Vital signs WNL. Neuros intact. ROM and LOC/orientation at baseline. Continues with c/o back pain. Denies headache, blurred vision, or nausea.
[2022-11-19] MEDS: OMEPRAZOLE 20 MG CAPSULE DR PO (06:52)
[2022-11-19] MEDS: LEVOTHYROXINE 50 MCG TABLET PO (06:52)
[2022-11-19] MEDS: SERTRALINE 100 MG TABLET 125 MG PO (07:35)
[2022-11-19] MEDS: NON-FORMULARY MEDICATION INH (07:35)
[2022-11-19] MEDS: ACETAMINOPHEN 500 MG TABLET 1000 MG PO ×3 (07:35→22:33)
[2022-11-19] MEDS: METOPROLOL SUCCINATE (XL) 25 MG TAB PO (07:35)
[2022-11-19] MEDS: ASPIRIN 81 MG TABLET EC PO (07:35)
[2022-11-19] MEDS: DONEPEZIL 5 MG TABLET PO (19:39)
[2022-11-19] MEDS: TRAMADOL HCL 50 MG TABLET PO (19:39)
[2022-11-19] MEDS: MELATONIN 3 MG TABLET 5 MG PO (19:39)
[2022-11-19] MEDS: MIRTAZAPINE 15 MG TABLET 7.5 MG PO (19:39)
--- NOTE | 2022-11-19 21:42 | PC.NURSE ---
Fall follow up: Vital signs are within resident's normal ranges. Neuro assessment findings are within baseline. No new concerns as related to fall incident noted or reported.
[2022-11-20] MEDS: NON-FORMULARY MEDICATION PO (05:14)
[2022-11-20] MEDS: SERTRALINE 100 MG TABLET 125 MG PO (07:15)
[2022-11-20] MEDS: METOPROLOL SUCCINATE (XL) 25 MG TAB PO (07:15)
[2022-11-20] MEDS: NON-FORMULARY MEDICATION INH (07:15)
[2022-11-20] MEDS: LEVOTHYROXINE 50 MCG TABLET PO (07:15)
[2022-11-20] MEDS: ASPIRIN 81 MG TABLET EC PO (07:15)
[2022-11-20] MEDS: OMEPRAZOLE 20 MG CAPSULE DR PO (07:15)
[2022-11-20] MEDS: ACETAMINOPHEN 500 MG TABLET 1000 MG PO ×3 (07:15→22:45)
[2022-11-20 10:52] VITALS: TEMP 36.3; O2SAT 95
[2022-11-20 16:27] VITALS: TEMP 37.1; O2SAT 91
[2022-11-20] MEDS: MELATONIN 3 MG TABLET 5 MG PO (19:11)
[2022-11-20] MEDS: TRAMADOL HCL 50 MG TABLET PO (19:11)
[2022-11-20] MEDS: DONEPEZIL 5 MG TABLET PO (19:11)
[2022-11-20] MEDS: MIRTAZAPINE 15 MG TABLET 7.5 MG PO (19:11)
[2022-11-20 23:00] VITALS: TEMP 36.9; O2SAT 94
[2022-11-21] MEDS: ASPIRIN 81 MG TABLET EC PO (07:09)
[2022-11-21] MEDS: OMEPRAZOLE 20 MG CAPSULE DR PO (07:09)
[2022-11-21] MEDS: SERTRALINE 100 MG TABLET 125 MG PO (07:09)
[2022-11-21] MEDS: NON-FORMULARY MEDICATION INH (07:09)
[2022-11-21] MEDS: ACETAMINOPHEN 500 MG TABLET 1000 MG PO ×2 (07:09→12:04)
[2022-11-21] MEDS: METOPROLOL SUCCINATE (XL) 25 MG TAB PO (07:09)
[2022-11-21] MEDS: LEVOTHYROXINE 50 MCG TABLET PO (07:09)
[2022-11-21 10:37] VITALS: TEMP 36.3; O2SAT 95
--- NOTE | 2022-11-21 13:17 | PC.NURSE ---
Order: Tylenol 1000 mg TID PRN changed to daily PRN. Increase BID TYLENOL 1000mg to TID @ 08,12,23.
[2022-11-21 15:00] VITALS: TEMP 36.4; O2SAT 92
[2022-11-21] MEDS: MELATONIN 3 MG TABLET 5 MG PO (19:35)
[2022-11-21] MEDS: DONEPEZIL 5 MG TABLET PO (19:35)
[2022-11-21] MEDS: MIRTAZAPINE 15 MG TABLET 7.5 MG PO (19:35)
[2022-11-21] MEDS: TRAMADOL HCL 50 MG TABLET PO (19:36)
[2022-11-21 23:00] VITALS: TEMP 36.4; O2SAT 93
[2022-11-22] MEDS: ACETAMINOPHEN 500 MG TABLET 1000 MG PO ×4 (00:27→22:52)
[2022-11-22] MEDS: LEVOTHYROXINE 50 MCG TABLET PO (07:05)
[2022-11-22] MEDS: OMEPRAZOLE 20 MG CAPSULE DR PO (07:05)
[2022-11-22] MEDS: ASPIRIN 81 MG TABLET EC PO (07:06)
[2022-11-22] MEDS: SERTRALINE 100 MG TABLET 125 MG PO (07:07)
[2022-11-22] MEDS: METOPROLOL SUCCINATE (XL) 25 MG TAB PO (07:07)
[2022-11-22] MEDS: NON-FORMULARY MEDICATION INH (07:07)
[2022-11-22 10:27] VITALS: TEMP 36.6; O2SAT 92
[2022-11-22 10:31] VITALS: BP 124/68; PULSE 72; RESP 20; TEMP 36.3; O2SAT 95
--- NOTE | 2022-11-22 11:25 | PC.NURSE ---
Recert Visit: Resident seen by Dr. Pierce. Orders reviewed and renewed of 75 days with changes. Order: Next Friday check TSH, BMP, A1C. D/C PRN dose of Tylenol.
[2022-11-22 15:00] VITALS: TEMP 37.1; O2SAT 91
[2022-11-22] MEDS: DONEPEZIL 5 MG TABLET PO (20:20)
[2022-11-22] MEDS: MIRTAZAPINE 15 MG TABLET 7.5 MG PO (20:20)
[2022-11-22] MEDS: TRAMADOL HCL 50 MG TABLET PO (20:20)
[2022-11-22] MEDS: MELATONIN 3 MG TABLET 5 MG PO (20:20)
--- NOTE | 2022-11-22 21:54 | PC.NURSE ---
Status: Resident has voiced concern to selling underwriter about her urinary frequency. On average she expresses the need to use the bathroom to urinate around x3 per hour. Rarely voids in toilet and is usually incontinent of bladder. She expressed to selling underwriter that this is hindering her daily living. Has been using negative self-talk and stating, I am such a burden to all of you and I cannot go on living like this Sales Broker provided reassurance to resident that we are here to help her.
[2022-11-22 23:00] VITALS: TEMP 36.6; O2SAT 95
[2022-11-23] MEDS: OMEPRAZOLE 20 MG CAPSULE DR PO (07:04)
[2022-11-23] MEDS: LEVOTHYROXINE 50 MCG TABLET PO (07:04)
[2022-11-23] MEDS: ACETAMINOPHEN 500 MG TABLET 1000 MG PO ×3 (07:04→23:16)
[2022-11-23] MEDS: METOPROLOL SUCCINATE (XL) 25 MG TAB PO (07:05)
[2022-11-23] MEDS: SERTRALINE 100 MG TABLET 125 MG PO (07:05)
[2022-11-23] MEDS: ASPIRIN 81 MG TABLET EC PO (07:05)
[2022-11-23] MEDS: NON-FORMULARY MEDICATION INH (07:05)
[2022-11-23 10:29] VITALS: TEMP 36.3; O2SAT 94
[2022-11-23 15:00] VITALS: TEMP 36.6; O2SAT 94
[2022-11-23] MEDS: MIRTAZAPINE 15 MG TABLET 7.5 MG PO (19:36)
[2022-11-23] MEDS: MELATONIN 3 MG TABLET 5 MG PO (19:36)
[2022-11-23] MEDS: TRAMADOL HCL 50 MG TABLET PO (19:36)
[2022-11-23] MEDS: DONEPEZIL 5 MG TABLET PO (19:36)
--- NOTE | 2022-11-23 21:54 | PC.NURSE ---
Addendum entered by Kristin Rutledge 11/24/22 22:22: Wrong Resident Original Note: Status: Staff observed resident having increased weakness while transferring with medistand when getting into bed this evening. Resident appeared very tired. Not able to hold on properly to medistand arms and needed assist of 2. In bed sleeping comfortably at this time.
[2022-11-23 23:00] VITALS: TEMP 36.9; O2SAT 93
[2022-11-24] MEDS: OMEPRAZOLE 20 MG CAPSULE DR PO (07:44)
[2022-11-24] MEDS: LEVOTHYROXINE 50 MCG TABLET PO (07:44)
[2022-11-24] MEDS: ASPIRIN 81 MG TABLET EC PO (07:45)
[2022-11-24] MEDS: ACETAMINOPHEN 500 MG TABLET 1000 MG PO ×3 (07:45→21:16)
[2022-11-24] MEDS: SERTRALINE 100 MG TABLET 125 MG PO (07:46)
[2022-11-24] MEDS: METOPROLOL SUCCINATE (XL) 25 MG TAB PO (07:46)
[2022-11-24] MEDS: NON-FORMULARY MEDICATION INH (07:46)
[2022-11-24 10:57] VITALS: TEMP 36.4; O2SAT 94
[2022-11-24 15:00] VITALS: TEMP 36.6; O2SAT 93
[2022-11-24] MEDS: MELATONIN 3 MG TABLET 5 MG PO (20:35)
[2022-11-24] MEDS: TRAMADOL HCL 50 MG TABLET PO (20:35)
[2022-11-24] MEDS: DONEPEZIL 5 MG TABLET PO (20:35)
[2022-11-24] MEDS: MIRTAZAPINE 15 MG TABLET 7.5 MG PO (20:35)
--- NOTE | 2022-11-24 22:28 | PC.NURSE ---
Status: Resident called on average twice per hour to use bathroom to void. Will sit on toilet but not void. Would set off alarm within 10 minutes with an incontinent void in brief. 4 episodes of this happened after supper and while getting into bed. Resident c/o left hip pain after receiving HS scheduled Tramadol. Was given Tylenol scheduled at 2300 early at 2116. Reassessment done and was effective.
[2022-11-24 23:00] VITALS: TEMP 36.6; O2SAT 94
[2022-11-25] MEDS: ACETAMINOPHEN 500 MG TABLET 1000 MG PO ×3 (07:12→22:54)
[2022-11-25] MEDS: NON-FORMULARY MEDICATION INH (07:12)
[2022-11-25] MEDS: ASPIRIN 81 MG TABLET EC PO (07:12)
[2022-11-25] MEDS: OMEPRAZOLE 20 MG CAPSULE DR PO (07:12)
[2022-11-25] MEDS: LEVOTHYROXINE 50 MCG TABLET PO (07:12)
[2022-11-25] MEDS: METOPROLOL SUCCINATE (XL) 25 MG TAB PO (07:12)
[2022-11-25] MEDS: SERTRALINE 100 MG TABLET 125 MG PO (07:14)
--- NOTE | 2022-11-25 09:46 | PC.NURSE ---
COVID OUTBREAK TESTING Residents daughter gave verbal consent for outbreak COVID testing. Resident is currently asymptomatic.? Resident/family will be notified only if resident is positive.
[2022-11-25 09:57] VITALS: TEMP 36.3; O2SAT 96
[2022-11-25 12:25] LABS: SARS PCR* Negative SARS-CoV-2 (Negative)
[2022-11-25] MEDS: MAG HYDROX/ALUMINUM HYD/SIMETH 30 ML ORAL.SUSP PO (13:06)
[2022-11-25] MEDS: DONEPEZIL 5 MG TABLET PO (19:45)
[2022-11-25] MEDS: MIRTAZAPINE 15 MG TABLET 7.5 MG PO (19:45)
[2022-11-25] MEDS: MELATONIN 3 MG TABLET 5 MG PO (19:45)
[2022-11-25] MEDS: TRAMADOL HCL 50 MG TABLET PO (19:45)
[2022-11-25 21:06] VITALS: TEMP 36.8; O2SAT 93
--- NOTE | 2022-11-25 21:28 | PC.NURSE ---
Status: Resident very upset about episodes of urinary frequency as they happen very frequently . Stated that something needs to be done about this.
[2022-11-26 01:48] VITALS: TEMP 36.4; O2SAT 95
[2022-11-26] MEDS: ASPIRIN 81 MG TABLET EC PO (07:02)
[2022-11-26] MEDS: ACETAMINOPHEN 500 MG TABLET 1000 MG PO ×3 (07:02→23:57)
[2022-11-26] MEDS: LEVOTHYROXINE 50 MCG TABLET PO (07:02)
[2022-11-26] MEDS: SERTRALINE 100 MG TABLET 125 MG PO (07:02)
[2022-11-26] MEDS: METOPROLOL SUCCINATE (XL) 25 MG TAB PO (07:02)
[2022-11-26] MEDS: NON-FORMULARY MEDICATION INH (07:02)
[2022-11-26] MEDS: OMEPRAZOLE 20 MG CAPSULE DR PO (07:02)
--- NOTE | 2022-11-26 07:28 | PC.NURSE ---
Week #1: Care plan reviewed, no changes made. Nothing added to temporary care plan. Resident needs extensive assist with dressing and bathing. Limited to extensive assist with grooming. Encourage resident to participate as able. Does oral cares after staff set up. Staff assist/complete as needed. Independent with feeding after set up. Is on regular diet, thin liquids. No problems with chewing/swallowing noted. Vital signs reviewed. BP varies depending on status. Continue weekly monitoring and refer to DIRECTOR OF SOCIAL WORK/MD as needed. Pain: Has chronic pain. Had a fall on 11/16/22 which results to having increase back pain. Lumbar X-ray done on 11/18, no fractures. 11/14 Received order for Ultram 50mg at HS, 11/21/22 Had an increase in Tylenol 1000mg to TID. Continue on Ultram 5omg TID PRN, Tylenol 1000mg daily PRN discontinued. She can tell when in pain but not always and staff also anticipates. Current pain regimen seems effective. Staff continue to monitor for pain.
[2022-11-26 10:53] VITALS: TEMP 36.3; O2SAT 95
[2022-11-26 15:00] VITALS: TEMP 36.3; O2SAT 95
[2022-11-26] MEDS: MELATONIN 3 MG TABLET 5 MG PO (19:13)
[2022-11-26] MEDS: DONEPEZIL 5 MG TABLET PO (19:13)
[2022-11-26] MEDS: TRAMADOL HCL 50 MG TABLET PO (19:13)
[2022-11-26] MEDS: MIRTAZAPINE 15 MG TABLET 7.5 MG PO (19:13)
--- NOTE | 2022-11-26 22:09 | PC.NURSE ---
Skin concern: Redness with yeasty foul odor noted at the umbilicus area. Affected area washed with soap and water, and patted dry. Concern noted in MANAGER MAIL book.
--- NOTE | 2022-11-26 22:19 | PC.NURSE ---
Bladder concerns: Resident has been making trips to the bathroom every two to five minutes. Exhibits agitation, anger, discontent, inpatient, and yelling at staff.
[2022-11-26 23:00] VITALS: TEMP 36.6; O2SAT 95
[2022-11-27] MEDS: NON-FORMULARY MEDICATION PO (07:00)
[2022-11-27] MEDS: OMEPRAZOLE 20 MG CAPSULE DR PO (07:07)
[2022-11-27] MEDS: NON-FORMULARY MEDICATION INH (07:07)
[2022-11-27] MEDS: ACETAMINOPHEN 500 MG TABLET 1000 MG PO ×3 (07:07→23:34)
[2022-11-27] MEDS: ASPIRIN 81 MG TABLET EC PO (07:07)
[2022-11-27] MEDS: METOPROLOL SUCCINATE (XL) 25 MG TAB PO (07:07)
[2022-11-27] MEDS: LEVOTHYROXINE 50 MCG TABLET PO (07:07)
[2022-11-27] MEDS: SERTRALINE 100 MG TABLET 125 MG PO (07:08)
[2022-11-27] MEDS: NYSTATIN CREAM 30 GM 1 APPLIC TOPICAL (07:40)
[2022-11-27 09:47] VITALS: TEMP 36.5; O2SAT 95
[2022-11-27 15:00] VITALS: TEMP 37.1; O2SAT 92
[2022-11-27] MEDS: DONEPEZIL 5 MG TABLET PO (19:18)
[2022-11-27] MEDS: MELATONIN 3 MG TABLET 5 MG PO (19:18)
[2022-11-27] MEDS: MIRTAZAPINE 15 MG TABLET 7.5 MG PO (19:18)
[2022-11-27] MEDS: TRAMADOL HCL 50 MG TABLET PO (19:18)
[2022-11-27 23:00] VITALS: TEMP 37.1; O2SAT 92
[2022-11-28] MEDS: OMEPRAZOLE 20 MG CAPSULE DR PO (06:40)
[2022-11-28] MEDS: LEVOTHYROXINE 50 MCG TABLET PO (06:40)
[2022-11-28] MEDS: NON-FORMULARY MEDICATION INH (07:07)
[2022-11-28] MEDS: ACETAMINOPHEN 500 MG TABLET 1000 MG PO ×2 (07:07→11:14)
[2022-11-28] MEDS: ASPIRIN 81 MG TABLET EC PO (07:07)
[2022-11-28] MEDS: METOPROLOL SUCCINATE (XL) 25 MG TAB PO (07:07)
[2022-11-28] MEDS: SERTRALINE 100 MG TABLET 125 MG PO (07:07)
[2022-11-28 09:40] VITALS: BP 159/79; PULSE 69; RESP 18; TEMP 36.4; O2SAT 97
[2022-11-28 10:25] VITALS: BMI 22.4
[2022-11-28] MEDS: TRAMADOL HCL 50 MG TABLET PO ×2 (14:36→19:18)
[2022-11-28 15:00] VITALS: TEMP 37.1; O2SAT 92
[2022-11-28] MEDS: MELATONIN 3 MG TABLET 5 MG PO (19:18)
[2022-11-28] MEDS: MIRTAZAPINE 15 MG TABLET 7.5 MG PO (19:18)
[2022-11-28] MEDS: DONEPEZIL 5 MG TABLET PO (19:18)
--- NOTE | 2022-11-28 21:52 | PC.NURSE ---
Status: Resident c/o pain all over 6/10 rating. Was given Tramadol 50mg PRN @ 1436. Gave warm towel but she stated it did not help, but the medication did provide relief.
[2022-11-28 23:00] VITALS: TEMP 37.1; O2SAT 94
[2022-11-29] MEDS: ACETAMINOPHEN 500 MG TABLET 1000 MG PO ×4 (00:05→23:03)
[2022-11-29] MEDS: OMEPRAZOLE 20 MG CAPSULE DR PO (06:43)
[2022-11-29] MEDS: LEVOTHYROXINE 50 MCG TABLET PO (06:43)
[2022-11-29] MEDS: METOPROLOL SUCCINATE (XL) 25 MG TAB PO (07:16)
[2022-11-29] MEDS: ASPIRIN 81 MG TABLET EC PO (07:16)
[2022-11-29] MEDS: NON-FORMULARY MEDICATION INH (07:16)
[2022-11-29] MEDS: SERTRALINE 100 MG TABLET 125 MG PO (07:16)
[2022-11-29 07:32] LABS: Chloride* 108 mmol/L (96-114); Potassium* 4.6 mmol/L (3.6-5.1); Sodium* 139 mmol/L (135-149)
[2022-11-29 07:33] LABS: Hemoglobin A1C* 6.64 % (0-5.6)
[2022-11-29 07:35] LABS: Blood Urea Nitrogen* 22 mg/dL (7-30); Carbon Dioxide* 25 mmol/L (20-32); Creatinine* 0.8 mg/dL (0.5-1.5); Est. Creatinine Clearance* 31.35; Estimated Glomerular Filt Rate 71 ml/min
[2022-11-29 07:36] LABS: Calcium* 8.6 mg/dL (8.4-10.6); Glucose* 152 mg/dL (60-115)
[2022-11-29 10:20] VITALS: TEMP 36.4; O2SAT 97
--- NOTE | 2022-11-29 13:23 | PC.NURSE ---
Labs/Order: BMP, TSH, A1C results reviewed by Dr. Pierce. Also updated of increase agitation/restlessness, urinary frequency more so during the evening. Order:Metformin 500mg daily, re check A1C in 3 months, monitor signs of polyuria, pain, restlessness daily and update in 1 week & 2 weeks.
[2022-11-29 15:00] VITALS: TEMP 36.9; O2SAT 95
[2022-11-29] MEDS: MIRTAZAPINE 15 MG TABLET 7.5 MG PO (19:19)
[2022-11-29] MEDS: MELATONIN 3 MG TABLET 5 MG PO (19:19)
[2022-11-29] MEDS: TRAMADOL HCL 50 MG TABLET PO (19:19)
[2022-11-29] MEDS: DONEPEZIL 5 MG TABLET PO (19:19)
[2022-11-29 23:00] VITALS: TEMP 37; O2SAT 93
[2022-11-30 07:00] VITALS: TEMP 36.6; O2SAT 97
[2022-11-30] MEDS: METOPROLOL SUCCINATE (XL) 25 MG TAB PO (07:25)
[2022-11-30] MEDS: ASPIRIN 81 MG TABLET EC PO (07:25)
[2022-11-30] MEDS: OMEPRAZOLE 20 MG CAPSULE DR PO (07:25)
[2022-11-30] MEDS: METFORMIN 500 MG TABLET PO (07:25)
[2022-11-30] MEDS: ACETAMINOPHEN 500 MG TABLET 1000 MG PO ×3 (07:25→23:27)
[2022-11-30] MEDS: LEVOTHYROXINE 50 MCG TABLET PO (07:25)
[2022-11-30] MEDS: NON-FORMULARY MEDICATION INH (07:25)
[2022-11-30] MEDS: SERTRALINE 100 MG TABLET 125 MG PO (07:26)
[2022-11-30 15:00] VITALS: TEMP 36.6; O2SAT 97
[2022-11-30] MEDS: TRAMADOL HCL 50 MG TABLET PO (19:37)
[2022-11-30] MEDS: MELATONIN 3 MG TABLET 5 MG PO (19:37)
[2022-11-30] MEDS: MIRTAZAPINE 15 MG TABLET 7.5 MG PO (19:37)
[2022-11-30] MEDS: DONEPEZIL 5 MG TABLET PO (19:37)
[2022-11-30 23:00] VITALS: TEMP 36.9; O2SAT 94
[2022-12-01 07:00] VITALS: TEMP 36.8; O2SAT 97
[2022-12-01] MEDS: METOPROLOL SUCCINATE (XL) 25 MG TAB PO (07:38)
[2022-12-01] MEDS: SERTRALINE 100 MG TABLET 125 MG PO (07:38)
[2022-12-01] MEDS: ASPIRIN 81 MG TABLET EC PO (07:38)
[2022-12-01] MEDS: NON-FORMULARY MEDICATION INH (07:38)
[2022-12-01] MEDS: METFORMIN 500 MG TABLET PO (07:38)
[2022-12-01] MEDS: OMEPRAZOLE 20 MG CAPSULE DR PO (07:39)
[2022-12-01] MEDS: LEVOTHYROXINE 50 MCG TABLET PO (07:39)
[2022-12-01] MEDS: ACETAMINOPHEN 500 MG TABLET 1000 MG PO ×3 (07:39→23:43)
[2022-12-01 15:00] VITALS: TEMP 36.8; O2SAT 97
[2022-12-01] MEDS: TRAMADOL HCL 50 MG TABLET PO (19:25)
[2022-12-01] MEDS: DONEPEZIL 5 MG TABLET PO (19:25)
[2022-12-01] MEDS: MIRTAZAPINE 15 MG TABLET 7.5 MG PO (19:25)
[2022-12-01] MEDS: MELATONIN 3 MG TABLET 5 MG PO (19:25)
[2022-12-01 23:00] VITALS: TEMP 36.9; O2SAT 94
[2022-12-02] MEDS: LEVOTHYROXINE 50 MCG TABLET PO (07:12)
[2022-12-02] MEDS: ASPIRIN 81 MG TABLET EC PO (07:12)
[2022-12-02] MEDS: ACETAMINOPHEN 500 MG TABLET 1000 MG PO ×3 (07:12→23:40)
[2022-12-02] MEDS: OMEPRAZOLE 20 MG CAPSULE DR PO (07:12)
[2022-12-02] MEDS: METOPROLOL SUCCINATE (XL) 25 MG TAB PO (07:13)
[2022-12-02] MEDS: METFORMIN 500 MG TABLET PO (07:13)
[2022-12-02] MEDS: NON-FORMULARY MEDICATION INH (07:13)
[2022-12-02] MEDS: SERTRALINE 100 MG TABLET 125 MG PO (07:14)
[2022-12-02 09:58] VITALS: TEMP 36.8; O2SAT 93
--- NOTE | 2022-12-02 09:58 | PC.NURSE ---
Status: Resident had a lg emesis at breakfast time. Ate very little of breakfast. Temp 98.2, O2 93%. Stated she feels better and is laying down at this time. Will keep in her room for the time being.
[2022-12-02 11:09] LABS: SARS PCR* Negative SARS-CoV-2 (Negative)
--- NOTE | 2022-12-02 12:59 | PC.NURSE ---
Status: Resident had no further emesis this shift but only ate about 40% of lunch. Stated she never was sick and just threw up and feels ok
--- NOTE | 2022-12-02 14:07 | PC.NURSE ---
COVID OUTBREAK TESTING Residents daughter gave verbal consent for outbreak COVID testing. Resident is currently asymptomatic.? Resident/family will be notified only if resident is positive.
[2022-12-02 15:00] VITALS: TEMP 37.1; O2SAT 93
[2022-12-02] MEDS: DONEPEZIL 5 MG TABLET PO (19:49)
[2022-12-02] MEDS: TRAMADOL HCL 50 MG TABLET PO (19:49)
[2022-12-02] MEDS: MELATONIN 3 MG TABLET 5 MG PO (19:49)
[2022-12-02] MEDS: MIRTAZAPINE 15 MG TABLET 7.5 MG PO (19:49)
--- NOTE | 2022-12-02 21:32 | PC.NURSE ---
Status: Resident ate 75% of supper. No c/o nausea. No further emesis this shift.
[2022-12-02 23:00] VITALS: TEMP 37; O2SAT 94
--- NOTE | 2022-12-03 02:00 | PC.NURSE ---
WEEKLY CHARTING - WEEK 2: Vital signs reviewed - no concerns. Temporary and comprehensive care plan reviewed - no change. Requires assist of 1 with gait belt and walker with transfers and ambulation. 1 limited to extensive assist with bed mobility. Able to follow cues to assist with bed mobility. Left 1/4 side rail as an enabler. Able to propel w/c independently at times. Staff assist for distance and destination. Is at high risk for falls per last fall risk assessment. Fall interventions: call light in reach and remind to use, remind to change position slowly, falling star magnet, non-slip footwear, hourly safety checks, bed in lowest position with brakes locked, w/c next to bed with brakes locked.
[2022-12-03 07:00] VITALS: TEMP 36.4; O2SAT 94
[2022-12-03] MEDS: OMEPRAZOLE 20 MG CAPSULE DR PO (07:02)
[2022-12-03] MEDS: LEVOTHYROXINE 50 MCG TABLET PO (07:02)
--- NOTE | 2022-12-03 07:55 | PC.NURSE ---
Week #2 - Mobility: Comprehensive care plan reviewed, no changes made. Nothing added to temporary care plan. Resident needs one assist, transfer belt, & walker with transfers and ambulation. Follow with wheelchair when walking as needed. Occasionally will self transfer and set off the alarm. Staff wheels to destinations. Staff to assist with T & R when in bed every 2 hours. Resident is able to grab rails to aid for positioning. (L) 1/4 side rail up at all times to promote independence in repositioning. Bed alarm off during the day. Vital signs reviewed. Has some elevated BP's depending on resident status r/t anxiety. Continue VS monitoring every week. Fall: 11/16/22 had a fall, self transfer to the toilet. No injury. Remains a high fall risk according to assessment done on 10/24/22.
[2022-12-03] MEDS: ACETAMINOPHEN 500 MG TABLET 1000 MG PO ×3 (08:10→23:58)
[2022-12-03] MEDS: SERTRALINE 100 MG TABLET 125 MG PO (08:10)
[2022-12-03] MEDS: NON-FORMULARY MEDICATION INH (08:10)
[2022-12-03] MEDS: ASPIRIN 81 MG TABLET EC PO (08:10)
[2022-12-03] MEDS: METFORMIN 500 MG TABLET PO (08:10)
[2022-12-03] MEDS: METOPROLOL SUCCINATE (XL) 25 MG TAB PO (08:10)
[2022-12-03 15:00] VITALS: TEMP 36.9; O2SAT 97
[2022-12-03] MEDS: MELATONIN 3 MG TABLET 5 MG PO (19:32)
[2022-12-03] MEDS: DONEPEZIL 5 MG TABLET PO (19:32)
[2022-12-03] MEDS: MIRTAZAPINE 15 MG TABLET 7.5 MG PO (19:32)
[2022-12-03] MEDS: TRAMADOL HCL 50 MG TABLET PO (19:32)
[2022-12-03] MEDS: MAG HYDROX/ALUMINUM HYD/SIMETH 30 ML ORAL.SUSP PO (22:23)
[2022-12-03 23:00] VITALS: TEMP 37; O2SAT 93
[2022-12-04] MEDS: TRAMADOL HCL 50 MG TABLET PO ×2 (02:38→20:49)
[2022-12-04] MEDS: NON-FORMULARY MEDICATION PO (05:32)
[2022-12-04] MEDS: OMEPRAZOLE 20 MG CAPSULE DR PO (06:47)
[2022-12-04] MEDS: LEVOTHYROXINE 50 MCG TABLET PO (06:47)
[2022-12-04 07:00] VITALS: TEMP 36.6; O2SAT 97
[2022-12-04] MEDS: METOPROLOL SUCCINATE (XL) 25 MG TAB PO (08:23)
[2022-12-04] MEDS: ACETAMINOPHEN 500 MG TABLET 1000 MG PO ×3 (08:23→23:52)
[2022-12-04] MEDS: SERTRALINE 100 MG TABLET 125 MG PO (08:23)
[2022-12-04] MEDS: METFORMIN 500 MG TABLET PO (08:23)
[2022-12-04] MEDS: NON-FORMULARY MEDICATION INH (08:23)
[2022-12-04] MEDS: ASPIRIN 81 MG TABLET EC PO (08:23)
--- NOTE | 2022-12-04 13:37 | PC.PHA1 ---
PERIOPERATIVE MANAGER PHARMACIST'S MEDICATION REVIEW: MEDICATION MONITORING:Mirtazapine 7.5 mg hs - GDR in process Sertraline 125 mg IRREGULARITY OR COMMENTS:Patient doing well. Tramadol prn order has been needed 15 times since last review. SUGGESTED COURSE OF ACTION TAKEN:No medication concerns or recommendations.
[2022-12-04 15:00] VITALS: TEMP 36.8; O2SAT 94
[2022-12-04] MEDS: MELATONIN 3 MG TABLET 5 MG PO (20:49)
[2022-12-04] MEDS: DONEPEZIL 5 MG TABLET PO (20:49)
[2022-12-04] MEDS: MIRTAZAPINE 15 MG TABLET 7.5 MG PO (20:49)
[2022-12-04 23:00] VITALS: TEMP 36.9; O2SAT 93
[2022-12-05 07:00] VITALS: TEMP 36.9; O2SAT 96
[2022-12-05] MEDS: LEVOTHYROXINE 50 MCG TABLET PO (07:46)
[2022-12-05] MEDS: OMEPRAZOLE 20 MG CAPSULE DR PO (07:46)
[2022-12-05 08:00] VITALS: BP 148/61; PULSE 78; RESP 18; TEMP 36.9; O2SAT 96; BMI 22.1
[2022-12-05] MEDS: METFORMIN 500 MG TABLET PO (08:35)
[2022-12-05] MEDS: SERTRALINE 100 MG TABLET 125 MG PO (08:35)
[2022-12-05] MEDS: ASPIRIN 81 MG TABLET EC PO (08:35)
[2022-12-05] MEDS: ACETAMINOPHEN 500 MG TABLET 1000 MG PO ×3 (08:35→23:30)
[2022-12-05] MEDS: NON-FORMULARY MEDICATION INH (08:35)
[2022-12-05] MEDS: METOPROLOL SUCCINATE (XL) 25 MG TAB PO (08:35)
--- NOTE | 2022-12-05 12:58 | PC.NURSE ---
Health Status: Resident had a medium emesis right after ate lunch. VS: BP 148/61, Temp 98.5, P 78, O2 96%, R 18. Resident states feels better now Resident is laying down at this time. Will update the upcoming shift to continues to monitor.
[2022-12-05 15:00] VITALS: TEMP 36.6; O2SAT 98
[2022-12-05] MEDS: DONEPEZIL 5 MG TABLET PO (19:10)
[2022-12-05] MEDS: MIRTAZAPINE 15 MG TABLET 7.5 MG PO (19:10)
[2022-12-05] MEDS: TRAMADOL HCL 50 MG TABLET PO (19:10)
[2022-12-05] MEDS: MELATONIN 3 MG TABLET 5 MG PO (19:10)
[2022-12-05 23:00] VITALS: TEMP 37.1; O2SAT 96
[2022-12-06] MEDS: OMEPRAZOLE 20 MG CAPSULE DR PO (07:10)
[2022-12-06] MEDS: LEVOTHYROXINE 50 MCG TABLET PO (07:10)
[2022-12-06] MEDS: METOPROLOL SUCCINATE (XL) 25 MG TAB PO (08:14)
[2022-12-06] MEDS: ASPIRIN 81 MG TABLET EC PO (08:14)
[2022-12-06] MEDS: METFORMIN 500 MG TABLET PO (08:14)
[2022-12-06] MEDS: SERTRALINE 100 MG TABLET 125 MG PO (08:14)
[2022-12-06] MEDS: ACETAMINOPHEN 500 MG TABLET 1000 MG PO ×3 (08:14→22:51)
[2022-12-06] MEDS: NON-FORMULARY MEDICATION INH (08:14)
[2022-12-06 10:08] VITALS: TEMP 36.4; O2SAT 96
--- NOTE | 2022-12-06 10:17 | PC.NURSE ---
Status/Order: MD updated of 2x emesis since Metformin started. Order: Change Metformin to Metformin ER 500mg daily.
[2022-12-06 15:00] VITALS: TEMP 37.1; O2SAT 93
[2022-12-06] MEDS: TRAMADOL HCL 50 MG TABLET PO (19:10)
[2022-12-06] MEDS: DONEPEZIL 5 MG TABLET PO (19:10)
[2022-12-06] MEDS: MIRTAZAPINE 15 MG TABLET 7.5 MG PO (19:10)
[2022-12-06] MEDS: MELATONIN 3 MG TABLET 5 MG PO (19:10)
[2022-12-06 23:00] VITALS: TEMP 36.3; O2SAT 92
[2022-12-07] MEDS: OMEPRAZOLE 20 MG CAPSULE DR PO (06:51)
[2022-12-07] MEDS: LEVOTHYROXINE 50 MCG TABLET PO (06:51)
[2022-12-07] MEDS: METFORMIN ER 500 MG PO (08:41)
[2022-12-07] MEDS: ASPIRIN 81 MG TABLET EC PO (08:41)
[2022-12-07] MEDS: ACETAMINOPHEN 500 MG TABLET 1000 MG PO ×3 (08:41→23:23)
[2022-12-07] MEDS: METOPROLOL SUCCINATE (XL) 25 MG TAB PO (08:41)
[2022-12-07] MEDS: NON-FORMULARY MEDICATION INH (08:41)
[2022-12-07] MEDS: SERTRALINE 100 MG TABLET 125 MG PO (08:42)
[2022-12-07 09:58] VITALS: TEMP 36.6; O2SAT 96
[2022-12-07 15:00] VITALS: TEMP 36.7; O2SAT 92
[2022-12-07] MEDS: MELATONIN 3 MG TABLET 5 MG PO (20:11)
[2022-12-07] MEDS: TRAMADOL HCL 50 MG TABLET PO (20:11)
[2022-12-07] MEDS: DONEPEZIL 5 MG TABLET PO (20:11)
[2022-12-07] MEDS: MIRTAZAPINE 15 MG TABLET 7.5 MG PO (20:11)
[2022-12-07 23:00] VITALS: TEMP 36.6; O2SAT 95
[2022-12-08] MEDS: TRAMADOL HCL 50 MG TABLET PO ×2 (04:37→19:25)
[2022-12-08] MEDS: OMEPRAZOLE 20 MG CAPSULE DR PO (06:59)
[2022-12-08] MEDS: LEVOTHYROXINE 50 MCG TABLET PO (06:59)
[2022-12-08] MEDS: ACETAMINOPHEN 500 MG TABLET 1000 MG PO ×3 (08:35→22:43)
[2022-12-08] MEDS: METOPROLOL SUCCINATE (XL) 25 MG TAB PO (08:36)
[2022-12-08] MEDS: METFORMIN ER 500 MG PO (08:36)
[2022-12-08] MEDS: SERTRALINE 100 MG TABLET 125 MG PO (08:36)
[2022-12-08] MEDS: ASPIRIN 81 MG TABLET EC PO (08:36)
[2022-12-08] MEDS: NON-FORMULARY MEDICATION INH (08:36)
[2022-12-08 10:03] VITALS: TEMP 36.6; O2SAT 94
[2022-12-08 15:00] VITALS: TEMP 37.1; O2SAT 94
[2022-12-08] MEDS: MELATONIN 3 MG TABLET 5 MG PO (19:25)
[2022-12-08] MEDS: MIRTAZAPINE 15 MG TABLET 7.5 MG PO (19:25)
[2022-12-08] MEDS: DONEPEZIL 5 MG TABLET PO (19:25)
--- NOTE | 2022-12-08 21:54 | PC.NURSE ---
Nausea: Resident c/o feeling nauseated following dinner. Did not have any emesis. Was given diet Mikayla Cristina. Reassessed and she stated, I feel fine now.
--- NOTE | 2022-12-08 22:10 | PC.NURSE ---
Urinary frequency is increased from the hours between [id number]. Resident has been up to the bathroom 9 times. Small incontinent void in pullup each bathroom trip. Does not void on toilet. Getting upset and inpatient with staff. Using negative-self talk saying that she wishes she didn't need help from the nurses or staff. Sports Bookmaker provided resident with reassurance.
[2022-12-08 23:00] VITALS: TEMP 36.4; O2SAT 92
[2022-12-09] MEDS: TRAMADOL HCL 50 MG TABLET PO ×2 (00:32→19:56)
[2022-12-09] MEDS: OMEPRAZOLE 20 MG CAPSULE DR PO (07:04)
[2022-12-09] MEDS: LEVOTHYROXINE 50 MCG TABLET PO (07:04)
[2022-12-09] MEDS: ACETAMINOPHEN 500 MG TABLET 1000 MG PO ×3 (08:34→23:31)
[2022-12-09] MEDS: METOPROLOL SUCCINATE (XL) 25 MG TAB PO (08:35)
[2022-12-09] MEDS: ASPIRIN 81 MG TABLET EC PO (08:35)
[2022-12-09] MEDS: NON-FORMULARY MEDICATION INH (08:35)
[2022-12-09] MEDS: METFORMIN ER 500 MG PO (08:35)
[2022-12-09] MEDS: SERTRALINE 100 MG TABLET 125 MG PO (08:35)
[2022-12-09 09:49] VITALS: TEMP 36.2; O2SAT 94
--- NOTE | 2022-12-09 11:21 | PC.NURSE ---
COVID OUTBREAK TESTING Residents daughter gave verbal consent for outbreak COVID testing. Resident is currently asymptomatic.? Resident/family will be notified only if resident is positive.
[2022-12-09 12:10] LABS: SARS PCR* Negative SARS-CoV-2 (Negative)
[2022-12-09 15:00] VITALS: TEMP 36.8; O2SAT 97
[2022-12-09] MEDS: MELATONIN 3 MG TABLET 5 MG PO (19:56)
[2022-12-09] MEDS: DONEPEZIL 5 MG TABLET PO (19:56)
[2022-12-09] MEDS: MIRTAZAPINE 15 MG TABLET 7.5 MG PO (19:56)
[2022-12-09 23:00] VITALS: TEMP 36.1; O2SAT 94
--- NOTE | 2022-12-10 06:55 | PC.NURSE ---
Week #3-Toileting: Comprehensive and temporary care plan reviewed. No changes made. Nothing added to temporary care plan. Resident needs one assist with toileting. Is frequently incontinent of urine, occasional bowel incontinence. Staff to check every 2 hours and assist as needed.Resident will also put the call light when ready to use the toilet. Ambulates to the bathroom using the walker and gait belt. At times will toilet self. Wears pull ups. Pads, farhan cares, clothing managed by staff. Vital signs reviewed, no concerns. Skin: No issues at this time. Skin is checked during cares and on bath day.
[2022-12-10] MEDS: LEVOTHYROXINE 50 MCG TABLET PO (07:25)
[2022-12-10] MEDS: OMEPRAZOLE 20 MG CAPSULE DR PO (07:25)
[2022-12-10] MEDS: NON-FORMULARY MEDICATION INH (08:36)
[2022-12-10] MEDS: METFORMIN ER 500 MG PO (08:36)
[2022-12-10] MEDS: ASPIRIN 81 MG TABLET EC PO (08:36)
[2022-12-10] MEDS: METOPROLOL SUCCINATE (XL) 25 MG TAB PO (08:36)
[2022-12-10] MEDS: ACETAMINOPHEN 500 MG TABLET 1000 MG PO ×3 (08:36→23:37)
[2022-12-10] MEDS: SERTRALINE 100 MG TABLET 125 MG PO (08:37)
[2022-12-10 10:01] VITALS: TEMP 36.6; O2SAT 93
[2022-12-10 15:00] VITALS: TEMP 36.7; O2SAT 94
[2022-12-10] MEDS: MELATONIN 3 MG TABLET 5 MG PO (19:26)
[2022-12-10] MEDS: MIRTAZAPINE 15 MG TABLET 7.5 MG PO (19:26)
[2022-12-10] MEDS: DONEPEZIL 5 MG TABLET PO (19:26)
[2022-12-10] MEDS: TRAMADOL HCL 50 MG TABLET PO (19:26)
[2022-12-10 23:00] VITALS: TEMP 36.7; O2SAT 94
[2022-12-11] MEDS: NON-FORMULARY MEDICATION PO (07:11)
[2022-12-11] MEDS: LEVOTHYROXINE 50 MCG TABLET PO (07:13)
[2022-12-11] MEDS: OMEPRAZOLE 20 MG CAPSULE DR PO (07:13)
[2022-12-11] MEDS: ASPIRIN 81 MG TABLET EC PO (07:13)
[2022-12-11] MEDS: METOPROLOL SUCCINATE (XL) 25 MG TAB PO (07:13)
[2022-12-11] MEDS: METFORMIN ER 500 MG PO (07:13)
[2022-12-11] MEDS: ACETAMINOPHEN 500 MG TABLET 1000 MG PO ×2 (07:13→11:57)
[2022-12-11] MEDS: SERTRALINE 100 MG TABLET 125 MG PO (07:14)
[2022-12-11] MEDS: NON-FORMULARY MEDICATION INH (07:14)
[2022-12-11 10:28] VITALS: TEMP 36.6; O2SAT 93
[2022-12-11 15:00] VITALS: TEMP 36.6; O2SAT 93
[2022-12-11] MEDS: TRAMADOL HCL 50 MG TABLET PO (19:15)
[2022-12-11] MEDS: MELATONIN 3 MG TABLET 5 MG PO (19:15)
[2022-12-11] MEDS: MIRTAZAPINE 15 MG TABLET 7.5 MG PO (19:15)
[2022-12-11] MEDS: DONEPEZIL 5 MG TABLET PO (19:15)
[2022-12-11 23:51] VITALS: TEMP 36.4; O2SAT 94
[2022-12-12] MEDS: TRAMADOL HCL 50 MG TABLET PO ×2 (02:00→19:18)
[2022-12-12] MEDS: ACETAMINOPHEN 500 MG TABLET 1000 MG PO ×4 (02:29→22:51)
[2022-12-12] MEDS: OMEPRAZOLE 20 MG CAPSULE DR PO (06:51)
[2022-12-12] MEDS: LEVOTHYROXINE 50 MCG TABLET PO (06:51)
[2022-12-12] MEDS: NON-FORMULARY MEDICATION INH (07:12)
[2022-12-12] MEDS: ASPIRIN 81 MG TABLET EC PO (07:12)
[2022-12-12] MEDS: METFORMIN ER 500 MG PO (07:12)
[2022-12-12] MEDS: SERTRALINE 100 MG TABLET 125 MG PO (07:12)
[2022-12-12] MEDS: METOPROLOL SUCCINATE (XL) 25 MG TAB PO (07:12)
[2022-12-12] MEDS: NYSTATIN CREAM 30 GM 1 APPLIC TOPICAL ×2 (07:15→20:06)
[2022-12-12 09:44] VITALS: BP 122/77; PULSE 69; RESP 18; TEMP 36.2; TEMP 36.6; O2SAT 92; O2SAT 96; BMI 22.4
[2022-12-12 15:00] VITALS: TEMP 37.1; O2SAT 92
[2022-12-12] MEDS: DONEPEZIL 5 MG TABLET PO (19:18)
[2022-12-12] MEDS: MIRTAZAPINE 15 MG TABLET 7.5 MG PO (19:18)
[2022-12-12] MEDS: MELATONIN 3 MG TABLET 5 MG PO (19:18)
--- NOTE | 2022-12-12 21:43 | PC.NURSE ---
Polyuria: Resident's urinary frequency has mildly improved. Still presenting with incontinence hourly. Resident bed alarm in use. Staff regularly finds her attempting to self-transfer to bathroom. Does not void on toilet. No s/s of UTI.
[2022-12-12 22:57] VITALS: TEMP 36.2; O2SAT 93
[2022-12-13 07:00] VITALS: TEMP 36.7; O2SAT 93
[2022-12-13] MEDS: LEVOTHYROXINE 50 MCG TABLET PO (07:01)
[2022-12-13] MEDS: OMEPRAZOLE 20 MG CAPSULE DR PO (07:01)
[2022-12-13] MEDS: ASPIRIN 81 MG TABLET EC PO (07:55)
[2022-12-13] MEDS: ACETAMINOPHEN 500 MG TABLET 1000 MG PO ×3 (07:55→23:50)
[2022-12-13] MEDS: NON-FORMULARY MEDICATION INH (07:55)
[2022-12-13] MEDS: METFORMIN ER 500 MG PO (07:55)
[2022-12-13] MEDS: SERTRALINE 100 MG TABLET 125 MG PO (07:55)
[2022-12-13] MEDS: METOPROLOL SUCCINATE (XL) 25 MG TAB PO (07:55)
[2022-12-13 15:00] VITALS: TEMP 36.7; O2SAT 98
[2022-12-13] MEDS: TRAMADOL HCL 50 MG TABLET PO (19:06)
[2022-12-13] MEDS: DONEPEZIL 5 MG TABLET PO (19:06)
[2022-12-13] MEDS: MIRTAZAPINE 15 MG TABLET 7.5 MG PO (19:06)
[2022-12-13] MEDS: MELATONIN 3 MG TABLET 5 MG PO (19:06)
[2022-12-14 01:07] VITALS: TEMP 36.8; O2SAT 90
[2022-12-14] MEDS: LEVOTHYROXINE 50 MCG TABLET PO (06:41)
[2022-12-14] MEDS: OMEPRAZOLE 20 MG CAPSULE DR PO (06:41)
[2022-12-14 07:00] VITALS: TEMP 36.5; O2SAT 94
[2022-12-14] MEDS: ACETAMINOPHEN 500 MG TABLET 1000 MG PO ×2 (07:34→12:19)
[2022-12-14] MEDS: NON-FORMULARY MEDICATION INH (07:35)
[2022-12-14] MEDS: METOPROLOL SUCCINATE (XL) 25 MG TAB PO (08:32)
[2022-12-14] MEDS: ASPIRIN 81 MG TABLET EC PO (08:32)
[2022-12-14] MEDS: SERTRALINE 100 MG TABLET 125 MG PO (08:32)
[2022-12-14] MEDS: METFORMIN ER 500 MG PO (08:32)
[2022-12-14 15:00] VITALS: TEMP 36.6; O2SAT 94
[2022-12-14] MEDS: MELATONIN 3 MG TABLET 5 MG PO (19:40)
[2022-12-14] MEDS: TRAMADOL HCL 50 MG TABLET PO (19:40)
[2022-12-14] MEDS: MIRTAZAPINE 15 MG TABLET 7.5 MG PO (19:40)
[2022-12-14] MEDS: DONEPEZIL 5 MG TABLET PO (19:40)
[2022-12-15 00:14] VITALS: TEMP 37; O2SAT 93
[2022-12-15] MEDS: ACETAMINOPHEN 500 MG TABLET 1000 MG PO ×4 (00:50→23:18)
[2022-12-15 07:00] VITALS: TEMP 36.2; O2SAT 93
[2022-12-15] MEDS: OMEPRAZOLE 20 MG CAPSULE DR PO (07:03)
[2022-12-15] MEDS: LEVOTHYROXINE 50 MCG TABLET PO (07:03)
[2022-12-15] MEDS: METOPROLOL SUCCINATE (XL) 25 MG TAB PO (07:55)
[2022-12-15] MEDS: SERTRALINE 100 MG TABLET 125 MG PO (07:55)
[2022-12-15] MEDS: METFORMIN ER 500 MG PO (07:55)
[2022-12-15] MEDS: ASPIRIN 81 MG TABLET EC PO (07:55)
[2022-12-15] MEDS: NON-FORMULARY MEDICATION INH (07:55)
[2022-12-15 15:00] VITALS: TEMP 36.6; O2SAT 95
[2022-12-15] MEDS: DONEPEZIL 5 MG TABLET PO (19:02)
[2022-12-15] MEDS: MIRTAZAPINE 15 MG TABLET 7.5 MG PO (19:02)
[2022-12-15] MEDS: MELATONIN 3 MG TABLET 5 MG PO (19:02)
[2022-12-15] MEDS: TRAMADOL HCL 50 MG TABLET PO (19:02)
[2022-12-15 23:00] VITALS: TEMP 36.7; O2SAT 91
[2022-12-16] MEDS: NYSTATIN CREAM 30 GM 1 APPLIC TOPICAL (06:47)
[2022-12-16] MEDS: OMEPRAZOLE 20 MG CAPSULE DR PO (07:10)
[2022-12-16] MEDS: ACETAMINOPHEN 500 MG TABLET 1000 MG PO ×3 (07:11→23:14)
[2022-12-16] MEDS: LEVOTHYROXINE 50 MCG TABLET PO (07:11)
[2022-12-16] MEDS: SERTRALINE 100 MG TABLET 125 MG PO (07:12)
[2022-12-16] MEDS: NON-FORMULARY MEDICATION INH (07:12)
[2022-12-16] MEDS: METOPROLOL SUCCINATE (XL) 25 MG TAB PO (07:12)
[2022-12-16] MEDS: METFORMIN ER 500 MG PO (07:12)
[2022-12-16] MEDS: ASPIRIN 81 MG TABLET EC PO (07:12)
[2022-12-16 10:08] VITALS: TEMP 36.4; O2SAT 94
--- NOTE | 2022-12-16 11:55 | PC.NURSE ---
COVID OUTBREAK TESTING Residents daughter gave verbal consent for outbreak COVID testing. Resident is currently asymptomatic.? Resident/family will be notified only if resident is positive.
[2022-12-16 14:00] LABS: SARS PCR* Negative SARS-CoV-2 (Negative)
[2022-12-16 15:00] VITALS: TEMP 36.4; O2SAT 95
[2022-12-16] MEDS: MELATONIN 3 MG TABLET 5 MG PO (19:09)
[2022-12-16] MEDS: DONEPEZIL 5 MG TABLET PO (19:09)
[2022-12-16] MEDS: MIRTAZAPINE 15 MG TABLET 7.5 MG PO (19:10)
[2022-12-16] MEDS: TRAMADOL HCL 50 MG TABLET PO (19:11)
[2022-12-16 23:00] VITALS: TEMP 36.8; O2SAT 94
--- NOTE | 2022-12-17 04:20 | PC.NURSE ---
WEEKLY CHARTING - WEEK 4: Vital signs reviewed- no concerns. Temporary and comprehensive care plan reviewed - no change. 8 documented behaviors in the last month. Generally awake multiple time through the night. Current psychotropic medications include: melatonin 5mg at HS, mirtazapine 7.5mg at HS, and sertraline 125mg daily with no noted adverse effects. No change in communication, hearing, vision, or orientation. Started on metformin 500mg daily on 11/29. Health stable at this time.
[2022-12-17] MEDS: OMEPRAZOLE 20 MG CAPSULE DR PO (07:16)
[2022-12-17] MEDS: ACETAMINOPHEN 500 MG TABLET 1000 MG PO ×3 (07:17→23:49)
[2022-12-17] MEDS: LEVOTHYROXINE 50 MCG TABLET PO (07:17)
[2022-12-17] MEDS: NON-FORMULARY MEDICATION INH (07:17)
[2022-12-17] MEDS: ASPIRIN 81 MG TABLET EC PO (07:17)
[2022-12-17] MEDS: METOPROLOL SUCCINATE (XL) 25 MG TAB PO (07:17)
[2022-12-17] MEDS: METFORMIN ER 500 MG PO (07:17)
[2022-12-17] MEDS: SERTRALINE 100 MG TABLET 125 MG PO (07:20)
[2022-12-17] MEDS: NYSTATIN CREAM 30 GM 1 APPLIC TOPICAL (07:21)
--- NOTE | 2022-12-17 07:32 | PC.NURSE ---
Week #4: Comprehensive care plan reviewed, no changes made. Nothing added to temporary care plan. No changes noted in communication, hearing, vision or orientation. Resident does communicate needs. Staff also anticipates. Is [place], wears bilateral hearing aids. Has vision impairment, corrected with glasses.Has cognitive impairment r/t dementia. Chronic health condition stable. A1C checked. 11/29 Was started on Metformin 500mg for urinary frequency and seems to help. Does not self administer ,medications. Vital signs reviewed, no concerns. Mood/Behavior: Has intermittent confusion & agitation. Is on Remeron 7.5mg @ HS, & Zoloft 125mg daily with no adverse effects noted. Continue to monitor mood/behaviors.
[2022-12-17 09:43] VITALS: TEMP 36.8; O2SAT 93
[2022-12-17] MEDS: DONEPEZIL 5 MG TABLET PO (20:23)
[2022-12-17] MEDS: MIRTAZAPINE 15 MG TABLET 7.5 MG PO (20:23)
[2022-12-17] MEDS: TRAMADOL HCL 50 MG TABLET PO (20:23)
[2022-12-17] MEDS: MELATONIN 3 MG TABLET 5 MG PO (20:23)
[2022-12-17 21:02] VITALS: TEMP 36.7; O2SAT 93
[2022-12-17 23:00] VITALS: TEMP 36.8; O2SAT 93
[2022-12-18] MEDS: NON-FORMULARY MEDICATION PO (05:21)
[2022-12-18] MEDS: OMEPRAZOLE 20 MG CAPSULE DR PO (06:41)
[2022-12-18] MEDS: LEVOTHYROXINE 50 MCG TABLET PO (06:42)
[2022-12-18 07:00] VITALS: TEMP 36.6; O2SAT 95
[2022-12-18] MEDS: ASPIRIN 81 MG TABLET EC PO (07:06)
[2022-12-18] MEDS: METOPROLOL SUCCINATE (XL) 25 MG TAB PO (07:06)
[2022-12-18] MEDS: NON-FORMULARY MEDICATION INH (07:06)
[2022-12-18] MEDS: ACETAMINOPHEN 500 MG TABLET 1000 MG PO ×3 (07:06→23:47)
[2022-12-18] MEDS: METFORMIN ER 500 MG PO (07:06)
[2022-12-18] MEDS: SERTRALINE 100 MG TABLET 125 MG PO (07:07)
[2022-12-18 15:00] VITALS: TEMP 37.1; O2SAT 92
[2022-12-18] MEDS: TRAMADOL HCL 50 MG TABLET PO (20:10)
[2022-12-18] MEDS: MIRTAZAPINE 15 MG TABLET 7.5 MG PO (20:10)
[2022-12-18] MEDS: DONEPEZIL 5 MG TABLET PO (20:10)
[2022-12-18] MEDS: MELATONIN 3 MG TABLET 5 MG PO (20:10)
[2022-12-18] MEDS: NYSTATIN CREAM 30 GM 1 APPLIC TOPICAL (20:10)
[2022-12-18 23:00] VITALS: TEMP 37.1; O2SAT 94
[2022-12-19] MEDS: OMEPRAZOLE 20 MG CAPSULE DR PO (06:55)
[2022-12-19] MEDS: LEVOTHYROXINE 50 MCG TABLET PO (06:55)
[2022-12-19 07:00] VITALS: TEMP 36.3; O2SAT 95
[2022-12-19] MEDS: ASPIRIN 81 MG TABLET EC PO (07:03)
[2022-12-19] MEDS: ACETAMINOPHEN 500 MG TABLET 1000 MG PO ×3 (07:03→23:50)
[2022-12-19] MEDS: METOPROLOL SUCCINATE (XL) 25 MG TAB PO (07:03)
[2022-12-19] MEDS: NON-FORMULARY MEDICATION INH (07:03)
[2022-12-19] MEDS: METFORMIN ER 500 MG PO (07:03)
[2022-12-19] MEDS: SERTRALINE 100 MG TABLET 125 MG PO (07:04)
[2022-12-19 08:00] VITALS: BP 147/75; PULSE 74; RESP 18; TEMP 36.3; O2SAT 95
[2022-12-19 15:00] VITALS: TEMP 36.9; O2SAT 98
[2022-12-19] MEDS: DONEPEZIL 5 MG TABLET PO (20:40)
[2022-12-19] MEDS: MIRTAZAPINE 15 MG TABLET 7.5 MG PO (20:40)
[2022-12-19] MEDS: TRAMADOL HCL 50 MG TABLET PO (20:40)
[2022-12-19] MEDS: MELATONIN 3 MG TABLET 5 MG PO (20:40)
[2022-12-19 23:00] VITALS: TEMP 36.9; O2SAT 94
[2022-12-20] MEDS: OMEPRAZOLE 20 MG CAPSULE DR PO (07:07)
[2022-12-20] MEDS: LEVOTHYROXINE 50 MCG TABLET PO (07:08)
[2022-12-20] MEDS: ACETAMINOPHEN 500 MG TABLET 1000 MG PO ×3 (07:08→23:39)
[2022-12-20] MEDS: METFORMIN ER 500 MG PO (07:08)
[2022-12-20] MEDS: ASPIRIN 81 MG TABLET EC PO (07:08)
[2022-12-20] MEDS: NON-FORMULARY MEDICATION INH (07:09)
[2022-12-20] MEDS: METOPROLOL SUCCINATE (XL) 25 MG TAB PO (07:09)
[2022-12-20] MEDS: SERTRALINE 100 MG TABLET 125 MG PO (07:10)
[2022-12-20 10:17] VITALS: TEMP 36.2; O2SAT 94
[2022-12-20 15:00] VITALS: TEMP 36.6; O2SAT 94
[2022-12-20] MEDS: TRAMADOL HCL 50 MG TABLET PO (19:21)
[2022-12-20] MEDS: MIRTAZAPINE 15 MG TABLET 7.5 MG PO (19:21)
[2022-12-20] MEDS: DONEPEZIL 5 MG TABLET PO (19:21)
[2022-12-20] MEDS: MELATONIN 3 MG TABLET 5 MG PO (19:21)
[2022-12-20 23:00] VITALS: TEMP 36.5; O2SAT 92
[2022-12-21] MEDS: OMEPRAZOLE 20 MG CAPSULE DR PO (07:00)
[2022-12-21] MEDS: LEVOTHYROXINE 50 MCG TABLET PO (07:00)
[2022-12-21] MEDS: METFORMIN ER 500 MG PO (08:15)
[2022-12-21] MEDS: ACETAMINOPHEN 500 MG TABLET 1000 MG PO ×3 (08:15→22:47)
[2022-12-21] MEDS: METOPROLOL SUCCINATE (XL) 25 MG TAB PO (08:15)
[2022-12-21] MEDS: SERTRALINE 100 MG TABLET 125 MG PO (08:15)
[2022-12-21] MEDS: NON-FORMULARY MEDICATION INH (08:15)
[2022-12-21] MEDS: ASPIRIN 81 MG TABLET EC PO (08:15)
[2022-12-21 12:54] VITALS: TEMP 36.2; O2SAT 94
[2022-12-21 15:00] VITALS: TEMP 36.9; O2SAT 93
[2022-12-21] MEDS: MELATONIN 3 MG TABLET 5 MG PO (19:34)
[2022-12-21] MEDS: MIRTAZAPINE 15 MG TABLET 7.5 MG PO (19:34)
[2022-12-21] MEDS: TRAMADOL HCL 50 MG TABLET PO (19:34)
[2022-12-21] MEDS: DONEPEZIL 5 MG TABLET PO (19:34)
[2022-12-21 22:50] VITALS: TEMP 36.3; O2SAT 93
[2022-12-22] MEDS: OMEPRAZOLE 20 MG CAPSULE DR PO (07:05)
[2022-12-22] MEDS: LEVOTHYROXINE 50 MCG TABLET PO (07:05)
[2022-12-22] MEDS: METOPROLOL SUCCINATE (XL) 25 MG TAB PO (08:41)
[2022-12-22] MEDS: METFORMIN ER 500 MG PO (08:41)
[2022-12-22] MEDS: ACETAMINOPHEN 500 MG TABLET 1000 MG PO ×3 (08:41→23:47)
[2022-12-22] MEDS: ASPIRIN 81 MG TABLET EC PO (08:41)
[2022-12-22] MEDS: SERTRALINE 100 MG TABLET 125 MG PO (08:41)
[2022-12-22] MEDS: NON-FORMULARY MEDICATION INH (08:41)
[2022-12-22 10:13] VITALS: TEMP 36.7; O2SAT 94
[2022-12-22 15:00] VITALS: TEMP 37.1; O2SAT 93
[2022-12-22] MEDS: TRAMADOL HCL 50 MG TABLET PO (19:22)
[2022-12-22] MEDS: MELATONIN 3 MG TABLET 5 MG PO (19:22)
[2022-12-22] MEDS: DONEPEZIL 5 MG TABLET PO (19:22)
[2022-12-22] MEDS: MIRTAZAPINE 15 MG TABLET 7.5 MG PO (19:22)
[2022-12-22 23:00] VITALS: TEMP 36.7; O2SAT 95
[2022-12-23] MEDS: LEVOTHYROXINE 50 MCG TABLET PO (06:57)
[2022-12-23] MEDS: OMEPRAZOLE 20 MG CAPSULE DR PO (06:57)
[2022-12-23] MEDS: ACETAMINOPHEN 500 MG TABLET 1000 MG PO ×3 (08:05→23:44)
[2022-12-23] MEDS: METFORMIN ER 500 MG PO (08:05)
[2022-12-23] MEDS: SERTRALINE 100 MG TABLET 125 MG PO (08:05)
[2022-12-23] MEDS: METOPROLOL SUCCINATE (XL) 25 MG TAB PO (08:05)
[2022-12-23] MEDS: ASPIRIN 81 MG TABLET EC PO (08:05)
[2022-12-23] MEDS: NON-FORMULARY MEDICATION INH (08:05)
--- NOTE | 2022-12-23 10:00 | PC.NURSE ---
COVID OUTBREAK TESTING Resident and residents son gave verbal consent for outbreak COVID testing. Resident is currently asymptomatic.? Resident/family will be notified only if resident is positive.
[2022-12-23 10:04] VITALS: TEMP 36.2; O2SAT 96
[2022-12-23 10:44] LABS: SARS PCR* Negative SARS-CoV-2 (Negative)
[2022-12-23] MEDS: MELATONIN 3 MG TABLET 5 MG PO (19:28)
[2022-12-23] MEDS: TRAMADOL HCL 50 MG TABLET PO (19:28)
[2022-12-23] MEDS: DONEPEZIL 5 MG TABLET PO (19:28)
[2022-12-23] MEDS: MIRTAZAPINE 15 MG TABLET 7.5 MG PO (19:28)
[2022-12-23 21:19] VITALS: TEMP 36.9; O2SAT 95
[2022-12-23 23:00] VITALS: TEMP 36.7; O2SAT 93
--- NOTE | 2022-12-24 05:16 | PC.NURSE ---
WEEKLY CHARTING WEEK 1 : PAIN AND ADL`s Vital signs reviewed, no concerns. Comprehensive care plan reviewed, no changes made. Nothing added to temporary care plan. Chronic pain on back covered by Tylenol 1000 mg TID, Tramadol 50 mg HS and TID PRN. Assist of one for toileting and transfer. Extensive assist of one for dressing. Eats independently after set up. Regular diet.
[2022-12-24] MEDS: OMEPRAZOLE 20 MG CAPSULE DR PO (06:48)
[2022-12-24] MEDS: LEVOTHYROXINE 50 MCG TABLET PO (06:48)
[2022-12-24 07:00] VITALS: TEMP 36.2; O2SAT 97
[2022-12-24] MEDS: METFORMIN ER 500 MG PO (07:02)
[2022-12-24] MEDS: SERTRALINE 100 MG TABLET 125 MG PO (07:02)
[2022-12-24] MEDS: NON-FORMULARY MEDICATION INH (07:02)
[2022-12-24] MEDS: ACETAMINOPHEN 500 MG TABLET 1000 MG PO ×3 (07:02→23:19)
[2022-12-24] MEDS: ASPIRIN 81 MG TABLET EC PO (07:02)
[2022-12-24] MEDS: METOPROLOL SUCCINATE (XL) 25 MG TAB PO (07:02)
--- NOTE | 2022-12-24 07:19 | PC.NURSE ---
Week #1: Care plan reviewed, no changes made. Nothing added to temporary care plan. Resident needs extensive assist with dressing and bathing. Limited to extensive assist with grooming. Encourage resident to participate as able. Does oral cares after staff set up. Staff assist/complete as needed. Independent with feeding after set up. Is on regular diet, thin liquids. No problems with chewing/swallowing noted. Vital signs reviewed. Occasional elevated BP's. Continue weekly monitoring and refer to INDUSTRIAL RETROFIT DESIGNER/MD as needed. Pain: Has chronic pain on back managed with Tylenol 1000mg @08,12, & 23. Ultram 50mg @ HS & TID PRN. PRN Ultram used occasionally with relief most of the time.She can tell when in pain but not always and staff also anticipates. Current pain regimen seems effective.
[2022-12-24 15:00] VITALS: TEMP 36.7; O2SAT 96
[2022-12-24] MEDS: DONEPEZIL 5 MG TABLET PO (19:45)
[2022-12-24] MEDS: MIRTAZAPINE 15 MG TABLET 7.5 MG PO (19:45)
[2022-12-24] MEDS: TRAMADOL HCL 50 MG TABLET PO (19:45)
[2022-12-24] MEDS: MELATONIN 3 MG TABLET 5 MG PO (19:45)
[2022-12-24 23:00] VITALS: TEMP 36.9; O2SAT 92
[2022-12-25] MEDS: NON-FORMULARY MEDICATION PO (05:04)
[2022-12-25] MEDS: OMEPRAZOLE 20 MG CAPSULE DR PO (06:35)
[2022-12-25] MEDS: LEVOTHYROXINE 50 MCG TABLET PO (06:35)
[2022-12-25 07:00] VITALS: TEMP 36.3; O2SAT 96
[2022-12-25] MEDS: ASPIRIN 81 MG TABLET EC PO (07:05)
[2022-12-25] MEDS: NON-FORMULARY MEDICATION INH (07:05)
[2022-12-25] MEDS: METFORMIN ER 500 MG PO (07:05)
[2022-12-25] MEDS: METOPROLOL SUCCINATE (XL) 25 MG TAB PO (07:05)
[2022-12-25] MEDS: ACETAMINOPHEN 500 MG TABLET 1000 MG PO ×3 (07:05→23:14)
[2022-12-25] MEDS: SERTRALINE 100 MG TABLET 125 MG PO (07:06)
[2022-12-25 15:00] VITALS: TEMP 36.9; O2SAT 92
[2022-12-25] MEDS: MIRTAZAPINE 15 MG TABLET 7.5 MG PO (19:08)
[2022-12-25] MEDS: DONEPEZIL 5 MG TABLET PO (19:08)
[2022-12-25] MEDS: MELATONIN 3 MG TABLET 5 MG PO (19:08)
[2022-12-25] MEDS: TRAMADOL HCL 50 MG TABLET PO (19:08)
[2022-12-25 23:21] VITALS: TEMP 36.6; O2SAT 94
[2022-12-26] MEDS: OMEPRAZOLE 20 MG CAPSULE DR PO (07:08)
[2022-12-26] MEDS: LEVOTHYROXINE 50 MCG TABLET PO (07:09)
[2022-12-26] MEDS: NON-FORMULARY MEDICATION INH (08:36)
[2022-12-26] MEDS: METOPROLOL SUCCINATE (XL) 25 MG TAB PO (08:36)
[2022-12-26] MEDS: METFORMIN ER 500 MG PO (08:36)
[2022-12-26] MEDS: SERTRALINE 100 MG TABLET 125 MG PO (08:36)
[2022-12-26] MEDS: ACETAMINOPHEN 500 MG TABLET 1000 MG PO ×3 (08:36→23:03)
[2022-12-26] MEDS: ASPIRIN 81 MG TABLET EC PO (08:36)
[2022-12-26 10:02] VITALS: TEMP 36.8; O2SAT 94
[2022-12-26 10:04] VITALS: BP 128/72; PULSE 76; RESP 18; TEMP 36.8; O2SAT 94
[2022-12-26] MEDS: guaiFENesin 100 MG/ML CUP PO ×2 (13:47→18:53)
[2022-12-26] MEDS: MIRTAZAPINE 15 MG TABLET 7.5 MG PO (19:04)
[2022-12-26] MEDS: TRAMADOL HCL 50 MG TABLET PO (19:04)
[2022-12-26] MEDS: DONEPEZIL 5 MG TABLET PO (19:04)
[2022-12-26] MEDS: MELATONIN 3 MG TABLET 5 MG PO (19:04)
--- NOTE | 2022-12-26 21:43 | PC.NURSE ---
Status: Resident has non-productive coughing episode while getting ready for bed. States she has a chronic cough that she gets once a year around this time. Requested cough syrup. Was given Guaifenesin 200mg PRN. Was effective upon reassessment. Resident in bed sleeping at this time.
[2022-12-27 07:00] VITALS: TEMP 36.4; O2SAT 95
[2022-12-27] MEDS: OMEPRAZOLE 20 MG CAPSULE DR PO (07:24)
[2022-12-27] MEDS: LEVOTHYROXINE 50 MCG TABLET PO (07:24)
[2022-12-27] MEDS: SERTRALINE 100 MG TABLET 125 MG PO (07:25)
[2022-12-27] MEDS: ACETAMINOPHEN 500 MG TABLET 1000 MG PO ×3 (07:25→23:18)
[2022-12-27] MEDS: METOPROLOL SUCCINATE (XL) 25 MG TAB PO (07:25)
[2022-12-27] MEDS: METFORMIN ER 500 MG PO (07:25)
[2022-12-27] MEDS: ASPIRIN 81 MG TABLET EC PO (07:25)
[2022-12-27] MEDS: NON-FORMULARY MEDICATION INH (07:26)
[2022-12-27] MEDS: TRAMADOL HCL 50 MG TABLET PO (19:03)
[2022-12-27] MEDS: MIRTAZAPINE 15 MG TABLET 7.5 MG PO (19:03)
[2022-12-27] MEDS: DONEPEZIL 5 MG TABLET PO (19:03)
[2022-12-27] MEDS: MELATONIN 3 MG TABLET 5 MG PO (19:03)
[2022-12-27] MEDS: guaiFENesin 100 MG/ML CUP PO (23:30)
[2022-12-28] MEDS: OMEPRAZOLE 20 MG CAPSULE DR PO (06:30)
[2022-12-28] MEDS: LEVOTHYROXINE 50 MCG TABLET PO (06:30)
[2022-12-28 07:00] VITALS: TEMP 34.4
[2022-12-28] MEDS: NON-FORMULARY MEDICATION INH (08:00)
[2022-12-28] MEDS: METOPROLOL SUCCINATE (XL) 25 MG TAB PO (08:00)
[2022-12-28] MEDS: METFORMIN ER 500 MG PO (08:00)
[2022-12-28] MEDS: ACETAMINOPHEN 500 MG TABLET 1000 MG PO ×3 (08:00→22:55)
[2022-12-28] MEDS: SERTRALINE 100 MG TABLET 125 MG PO (08:00)
[2022-12-28] MEDS: ASPIRIN 81 MG TABLET EC PO (08:05)
[2022-12-28] MEDS: MELATONIN 3 MG TABLET 5 MG PO (19:21)
[2022-12-28] MEDS: MIRTAZAPINE 15 MG TABLET 7.5 MG PO (19:21)
[2022-12-28] MEDS: TRAMADOL HCL 50 MG TABLET PO (19:21)
[2022-12-28] MEDS: DONEPEZIL 5 MG TABLET PO (19:21)
[2022-12-28] MEDS: guaiFENesin 100 MG/ML CUP PO (20:06)
[2022-12-29] MEDS: OMEPRAZOLE 20 MG CAPSULE DR PO (06:42)
[2022-12-29] MEDS: LEVOTHYROXINE 50 MCG TABLET PO (06:42)
[2022-12-29] MEDS: METFORMIN ER 500 MG PO (07:44)
[2022-12-29] MEDS: SERTRALINE 100 MG TABLET 125 MG PO (07:44)
[2022-12-29] MEDS: NON-FORMULARY MEDICATION INH (07:44)
[2022-12-29] MEDS: ACETAMINOPHEN 500 MG TABLET 1000 MG PO ×3 (07:44→23:26)
[2022-12-29] MEDS: METOPROLOL SUCCINATE (XL) 25 MG TAB PO (07:44)
[2022-12-29] MEDS: ASPIRIN 81 MG TABLET EC PO (07:44)
[2022-12-29 10:21] VITALS: TEMP 36.6; O2SAT 96
[2022-12-29] MEDS: MIRTAZAPINE 15 MG TABLET 7.5 MG PO (19:40)
[2022-12-29] MEDS: TRAMADOL HCL 50 MG TABLET PO (19:40)
[2022-12-29] MEDS: MELATONIN 3 MG TABLET 5 MG PO (19:40)
[2022-12-29] MEDS: DONEPEZIL 5 MG TABLET PO (19:40)
[2022-12-30 07:00] VITALS: TEMP 36.7; O2SAT 95
[2022-12-30] MEDS: OMEPRAZOLE 20 MG CAPSULE DR PO (07:06)
[2022-12-30] MEDS: ACETAMINOPHEN 500 MG TABLET 1000 MG PO ×3 (07:06→23:02)
[2022-12-30] MEDS: LEVOTHYROXINE 50 MCG TABLET PO (07:06)
[2022-12-30] MEDS: ASPIRIN 81 MG TABLET EC PO (07:07)
[2022-12-30] MEDS: METOPROLOL SUCCINATE (XL) 25 MG TAB PO (07:07)
[2022-12-30] MEDS: SERTRALINE 100 MG TABLET 125 MG PO (07:07)
[2022-12-30] MEDS: METFORMIN ER 500 MG PO (07:07)
[2022-12-30] MEDS: NON-FORMULARY MEDICATION INH (07:08)
[2022-12-30] MEDS: guaiFENesin 100 MG/ML CUP PO (07:39)
[2022-12-30] MEDS: TRAMADOL HCL 50 MG TABLET PO (19:08)
[2022-12-30] MEDS: DONEPEZIL 5 MG TABLET PO (19:08)
[2022-12-30] MEDS: MIRTAZAPINE 15 MG TABLET 7.5 MG PO (19:08)
[2022-12-30] MEDS: MELATONIN 3 MG TABLET 5 MG PO (19:08)
--- NOTE | 2022-12-31 00:44 | PC.NURSE ---
WEEKLY CHARTING - WEEK 2: Vital signs reviewed - no concerns. Temporary and comprehensive care plan reviewed - no change. Requires assist of 1 with gait belt for transfers. Often self-transfers. Assist of 1 with gait belt and 4WW for ambulation. Assist of 1 with bed mobility. Able to follow cues to assist with bed mobility. Left 1/4 side rail as an enabler. Able to propel w/c independently, staff assist for distance and destination. Is at high risk for falls per last fall risk assessment. Fall interventions: call light in reach, falling star magnet, non-slip footwear, Q 30 minute safety checks, bed in lowest position with brakes locked, w/c next to bed with brakes locked, bed and chair alarm in place.?
[2022-12-31] MEDS: OMEPRAZOLE 20 MG CAPSULE DR PO (06:41)
[2022-12-31] MEDS: LEVOTHYROXINE 50 MCG TABLET PO (06:41)
--- NOTE | 2022-12-31 07:10 | PC.NURSE ---
Week #2 - Mobility: Comprehensive and temporary care plan reviewed. No changes made, nothing added to temporary care plan. Resident needs one assist, gait belt, walker with transfers and ambulation. Will often transfers self. Is able to self propel. Staff assist to longer distances and destinations. Assist with turning and positioning every hours. (L) 1/4 side rail up at all times as an enabler for bed mobility. Has a bed/chair alarm. Vital signs reviewed, no concerns. Fall: No falls the past month. Remains a high fall risk according to assessment done on 10/24/22. Fall interventions: Call light within reach, bed in low position with brakes locked, bed/chair alarm, non skid footwear, not to be left alone in bathroom, falling star magnet, w/c locked at bedside.
[2022-12-31] MEDS: guaiFENesin 100 MG/ML CUP PO (07:20)
[2022-12-31] MEDS: ASPIRIN 81 MG TABLET EC PO (07:38)
[2022-12-31] MEDS: METFORMIN ER 500 MG PO (07:38)
[2022-12-31] MEDS: METOPROLOL SUCCINATE (XL) 25 MG TAB PO (07:38)
[2022-12-31] MEDS: ACETAMINOPHEN 500 MG TABLET 1000 MG PO ×3 (07:38→23:35)
[2022-12-31] MEDS: NON-FORMULARY MEDICATION INH (07:38)
[2022-12-31] MEDS: SERTRALINE 100 MG TABLET 125 MG PO (07:39)
[2022-12-31 10:14] VITALS: TEMP 36.7; O2SAT 96
[2022-12-31] MEDS: MELATONIN 3 MG TABLET 5 MG PO (19:11)
[2022-12-31] MEDS: DONEPEZIL 5 MG TABLET PO (19:11)
[2022-12-31] MEDS: MIRTAZAPINE 15 MG TABLET 7.5 MG PO (19:11)
[2022-12-31] MEDS: TRAMADOL HCL 50 MG TABLET PO (19:13)
[2023-01-01] MEDS: NON-FORMULARY MEDICATION PO (05:15)
[2023-01-01] MEDS: OMEPRAZOLE 20 MG CAPSULE DR PO (07:24)
[2023-01-01] MEDS: LEVOTHYROXINE 50 MCG TABLET PO (07:24)
[2023-01-01] MEDS: SERTRALINE 100 MG TABLET 125 MG PO (07:25)
[2023-01-01] MEDS: ASPIRIN 81 MG TABLET EC PO (07:25)
[2023-01-01] MEDS: ACETAMINOPHEN 500 MG TABLET 1000 MG PO ×3 (07:25→23:02)
[2023-01-01] MEDS: NON-FORMULARY MEDICATION INH (07:25)
[2023-01-01] MEDS: METOPROLOL SUCCINATE (XL) 25 MG TAB PO (07:25)
[2023-01-01] MEDS: METFORMIN ER 500 MG PO (08:38)
[2023-01-01 10:22] VITALS: TEMP 36.6; O2SAT 94
--- NOTE | 2023-01-01 10:27 | PC.PHA1 ---
COMMUTATOR OPERATOR PHARMACIST'S MEDICATION REVIEW: MEDICATION MONITORING:Mirtazapine 7.5 mg hs Sertraline 125 mg IRREGULARITY OR COMMENTS:Patient doing well on current psychotropic regimen, she has not needed any lorazepam but has in past since admission. Given her continued adjustment to her new living situation a GDR of sertraline and mirtazapine would be recommended for or of 2022. Metformin 500 mg ER continues, A1C in November less than 7 and crcl greater than 30. SUGGESTED COURSE OF ACTION TAKEN:No recommendations for medication changes this review
[2023-01-01] MEDS: guaiFENesin 100 MG/ML CUP PO (18:40)
[2023-01-01] MEDS: TRAMADOL HCL 50 MG TABLET PO (20:42)
[2023-01-01] MEDS: DONEPEZIL 5 MG TABLET PO (20:42)
[2023-01-01] MEDS: MELATONIN 3 MG TABLET 5 MG PO (20:42)
[2023-01-01] MEDS: MIRTAZAPINE 15 MG TABLET 7.5 MG PO (20:42)
[2023-01-02 06:58] VITALS: TEMP 36.4; O2SAT 92
[2023-01-02] MEDS: NYSTATIN CREAM 30 GM 1 APPLIC TOPICAL (07:12)
[2023-01-02] MEDS: LEVOTHYROXINE 50 MCG TABLET PO (07:44)
[2023-01-02] MEDS: OMEPRAZOLE 20 MG CAPSULE DR PO (07:44)
[2023-01-02] MEDS: ACETAMINOPHEN 500 MG TABLET 1000 MG PO ×3 (07:44→23:28)
[2023-01-02] MEDS: SERTRALINE 100 MG TABLET 125 MG PO (07:45)
[2023-01-02] MEDS: METOPROLOL SUCCINATE (XL) 25 MG TAB PO (07:45)
[2023-01-02] MEDS: METFORMIN ER 500 MG PO (07:45)
[2023-01-02] MEDS: ASPIRIN 81 MG TABLET EC PO (07:45)
[2023-01-02] MEDS: NON-FORMULARY MEDICATION INH (07:46)
[2023-01-02 07:50] VITALS: BP 140/79; PULSE 63; RESP 18; TEMP 36.4; O2SAT 92
[2023-01-02 15:00] VITALS: TEMP 36.8; O2SAT 96
[2023-01-02] MEDS: TRAMADOL HCL 50 MG TABLET PO (19:28)
[2023-01-02] MEDS: DONEPEZIL 5 MG TABLET PO (19:28)
[2023-01-02] MEDS: MELATONIN 3 MG TABLET 5 MG PO (19:28)
[2023-01-02] MEDS: MIRTAZAPINE 15 MG TABLET 7.5 MG PO (19:28)
[2023-01-02 23:49] VITALS: TEMP 36.4; O2SAT 93
[2023-01-03] MEDS: NYSTATIN CREAM 30 GM 1 APPLIC TOPICAL ×2 (07:01→19:37)
[2023-01-03] MEDS: ASPIRIN 81 MG TABLET EC PO (07:03)
[2023-01-03] MEDS: ACETAMINOPHEN 500 MG TABLET 1000 MG PO ×3 (07:03→23:28)
[2023-01-03] MEDS: LEVOTHYROXINE 50 MCG TABLET PO (07:03)
[2023-01-03] MEDS: OMEPRAZOLE 20 MG CAPSULE DR PO (07:03)
[2023-01-03] MEDS: METFORMIN ER 500 MG PO (07:04)
[2023-01-03] MEDS: METOPROLOL SUCCINATE (XL) 25 MG TAB PO (07:04)
[2023-01-03] MEDS: NON-FORMULARY MEDICATION INH (07:04)
[2023-01-03] MEDS: SERTRALINE 100 MG TABLET 125 MG PO (07:08)
[2023-01-03 09:57] VITALS: TEMP 36.3; O2SAT 95
[2023-01-03 15:00] VITALS: TEMP 36.9; O2SAT 92
[2023-01-03] MEDS: MELATONIN 3 MG TABLET 5 MG PO (19:28)
[2023-01-03] MEDS: DONEPEZIL 5 MG TABLET PO (19:28)
[2023-01-03] MEDS: TRAMADOL HCL 50 MG TABLET PO (19:28)
[2023-01-03] MEDS: MIRTAZAPINE 15 MG TABLET 7.5 MG PO (19:28)
[2023-01-03] MEDS: guaiFENesin 100 MG/ML CUP PO (20:01)
[2023-01-04 00:22] VITALS: TEMP 36.4; O2SAT 92
[2023-01-04] MEDS: OMEPRAZOLE 20 MG CAPSULE DR PO (07:02)
[2023-01-04] MEDS: ACETAMINOPHEN 500 MG TABLET 1000 MG PO ×3 (07:02→23:43)
[2023-01-04] MEDS: SERTRALINE 100 MG TABLET 125 MG PO (07:02)
[2023-01-04] MEDS: NON-FORMULARY MEDICATION INH (07:02)
[2023-01-04] MEDS: LEVOTHYROXINE 50 MCG TABLET PO (07:02)
[2023-01-04] MEDS: METFORMIN ER 500 MG PO (07:02)
[2023-01-04] MEDS: METOPROLOL SUCCINATE (XL) 25 MG TAB PO (07:02)
[2023-01-04] MEDS: ASPIRIN 81 MG TABLET EC PO (07:02)
[2023-01-04] MEDS: NYSTATIN CREAM 30 GM 1 APPLIC TOPICAL (07:03)
[2023-01-04 10:35] VITALS: TEMP 36.6; O2SAT 97
[2023-01-04 15:00] VITALS: TEMP 36.9; O2SAT 94
[2023-01-04] MEDS: DONEPEZIL 5 MG TABLET PO (20:06)
[2023-01-04] MEDS: MELATONIN 3 MG TABLET 5 MG PO (20:06)
[2023-01-04] MEDS: TRAMADOL HCL 50 MG TABLET PO (20:06)
[2023-01-04] MEDS: MIRTAZAPINE 15 MG TABLET 7.5 MG PO (20:06)
[2023-01-05 00:07] VITALS: TEMP 36.4; O2SAT 98
[2023-01-05] MEDS: LEVOTHYROXINE 50 MCG TABLET PO (07:00)
[2023-01-05] MEDS: OMEPRAZOLE 20 MG CAPSULE DR PO (07:00)
[2023-01-05] MEDS: ASPIRIN 81 MG TABLET EC PO (08:52)
[2023-01-05] MEDS: ACETAMINOPHEN 500 MG TABLET 1000 MG PO ×3 (08:52→23:37)
[2023-01-05] MEDS: METOPROLOL SUCCINATE (XL) 25 MG TAB PO (08:53)
[2023-01-05] MEDS: SERTRALINE 100 MG TABLET 125 MG PO (08:53)
[2023-01-05] MEDS: METFORMIN ER 500 MG PO (08:53)
[2023-01-05] MEDS: NON-FORMULARY MEDICATION INH (08:53)
[2023-01-05 10:41] VITALS: TEMP 36.6; O2SAT 92
[2023-01-05 15:00] VITALS: TEMP 36.8; O2SAT 94
[2023-01-05] MEDS: MELATONIN 3 MG TABLET 5 MG PO (19:52)
[2023-01-05] MEDS: MIRTAZAPINE 15 MG TABLET 7.5 MG PO (19:52)
[2023-01-05] MEDS: TRAMADOL HCL 50 MG TABLET PO (19:52)
[2023-01-05] MEDS: DONEPEZIL 5 MG TABLET PO (19:52)
[2023-01-05 23:52] VITALS: TEMP 36.6; O2SAT 95
[2023-01-06] MEDS: OMEPRAZOLE 20 MG CAPSULE DR PO (06:56)
[2023-01-06] MEDS: LEVOTHYROXINE 50 MCG TABLET PO (06:56)
[2023-01-06] MEDS: NON-FORMULARY MEDICATION INH (06:59)
[2023-01-06] MEDS: ACETAMINOPHEN 500 MG TABLET 1000 MG PO ×3 (06:59→23:29)
[2023-01-06] MEDS: ASPIRIN 81 MG TABLET EC PO (06:59)
[2023-01-06] MEDS: METFORMIN ER 500 MG PO (06:59)
[2023-01-06] MEDS: METOPROLOL SUCCINATE (XL) 25 MG TAB PO (06:59)
[2023-01-06] MEDS: SERTRALINE 100 MG TABLET 125 MG PO (06:59)
--- NOTE | 2023-01-06 10:15 | PC.NURSE ---
COVID OUTBREAK TESTING Resident and residents daughter gave verbal consent for outbreak COVID testing. Resident is currently asymptomatic.? Resident/family will be notified only if resident is positive.
[2023-01-06 11:28] LABS: SARS PCR* Negative SARS-CoV-2 (Negative)
[2023-01-06 13:09] VITALS: TEMP 36.3; O2SAT 96
[2023-01-06 15:06] VITALS: TEMP 36.4; O2SAT 95
[2023-01-06] MEDS: MIRTAZAPINE 15 MG TABLET 7.5 MG PO (19:30)
[2023-01-06] MEDS: MELATONIN 3 MG TABLET 5 MG PO (19:30)
[2023-01-06] MEDS: DONEPEZIL 5 MG TABLET PO (19:30)
[2023-01-06] MEDS: TRAMADOL HCL 50 MG TABLET PO (19:31)
[2023-01-06 23:00] VITALS: TEMP 36.6; O2SAT 95
--- NOTE | 2023-01-07 02:38 | PC.NURSE ---
Weekly Charting Week 3: Vital signs reviewed. Temporary and comprehensive care plan reviewed, No changes made. No skin concerns, Skin routinely check every bath day. Res needs assist of 1 for toileting, cloth adjustment, incontinent pad management and farhan cares. Continent of bowel, Occasional incontinent of bladder d/t polyuria, Able to use the call light for toileting at [facility]. Wear medium pull up.
--- NOTE | 2023-01-07 07:02 | PC.NURSE ---
Week #3-Toileting: Comprehensive and temporary care plan reviewed. No changes made. Nothing added to temporary care plan. Resident needs one assist with toileting. Is frequently incontinent of urine, has occasional bowel incontinence. Staff to check every 2 hours and assist as needed.Resident will also put the call light when ready to use the toilet. Ambulates to the bathroom using the walker and gait belt. At times? will also toilet self. Wears pull ups. Pads, farhan cares, clothing managed by staff. Vital signs reviewed, no concerns. Skin: No issues at this time. Skin is checked during cares and on bath day.
[2023-01-07] MEDS: OMEPRAZOLE 20 MG CAPSULE DR PO (07:05)
[2023-01-07] MEDS: LEVOTHYROXINE 50 MCG TABLET PO (07:05)
[2023-01-07] MEDS: NON-FORMULARY MEDICATION INH (07:53)
[2023-01-07] MEDS: SERTRALINE 100 MG TABLET 125 MG PO (07:53)
[2023-01-07] MEDS: METOPROLOL SUCCINATE (XL) 25 MG TAB PO (07:53)
[2023-01-07] MEDS: ASPIRIN 81 MG TABLET EC PO (07:53)
[2023-01-07] MEDS: METFORMIN ER 500 MG PO (07:53)
[2023-01-07] MEDS: ACETAMINOPHEN 500 MG TABLET 1000 MG PO ×3 (07:53→23:30)
[2023-01-07 10:03] VITALS: TEMP 36.3; O2SAT 95
[2023-01-07 15:00] VITALS: TEMP 36.8; O2SAT 95
[2023-01-07] MEDS: DONEPEZIL 5 MG TABLET PO (19:18)
[2023-01-07] MEDS: MELATONIN 3 MG TABLET 5 MG PO (19:18)
[2023-01-07] MEDS: MIRTAZAPINE 15 MG TABLET 7.5 MG PO (19:18)
[2023-01-07] MEDS: TRAMADOL HCL 50 MG TABLET PO (19:19)
[2023-01-07 23:00] VITALS: TEMP 37.1; O2SAT 95
[2023-01-08] MEDS: NON-FORMULARY MEDICATION PO (05:20)
[2023-01-08] MEDS: LEVOTHYROXINE 50 MCG TABLET PO (07:31)
[2023-01-08] MEDS: NON-FORMULARY MEDICATION INH (07:31)
[2023-01-08] MEDS: METOPROLOL SUCCINATE (XL) 25 MG TAB PO (07:31)
[2023-01-08] MEDS: OMEPRAZOLE 20 MG CAPSULE DR PO (07:31)
[2023-01-08] MEDS: SERTRALINE 100 MG TABLET 125 MG PO (07:31)
[2023-01-08] MEDS: ACETAMINOPHEN 500 MG TABLET 1000 MG PO ×3 (07:31→23:46)
[2023-01-08] MEDS: ASPIRIN 81 MG TABLET EC PO (07:31)
[2023-01-08] MEDS: METFORMIN ER 500 MG PO (07:31)
[2023-01-08 10:32] VITALS: TEMP 36.3; O2SAT 94
[2023-01-08 15:00] VITALS: TEMP 36.6; O2SAT 94
[2023-01-08] MEDS: MIRTAZAPINE 15 MG TABLET 7.5 MG PO (20:33)
[2023-01-08] MEDS: TRAMADOL HCL 50 MG TABLET PO (20:33)
[2023-01-08] MEDS: DONEPEZIL 5 MG TABLET PO (20:33)
[2023-01-08] MEDS: MELATONIN 3 MG TABLET 5 MG PO (20:33)
[2023-01-08 23:00] VITALS: TEMP 36.9; O2SAT 94
[2023-01-09] MEDS: OMEPRAZOLE 20 MG CAPSULE DR PO (07:36)
[2023-01-09] MEDS: LEVOTHYROXINE 50 MCG TABLET PO (07:37)
[2023-01-09] MEDS: NON-FORMULARY MEDICATION INH (08:37)
[2023-01-09] MEDS: SERTRALINE 100 MG TABLET 125 MG PO (08:37)
[2023-01-09] MEDS: ACETAMINOPHEN 500 MG TABLET 1000 MG PO ×3 (08:37→23:15)
[2023-01-09] MEDS: METOPROLOL SUCCINATE (XL) 25 MG TAB PO (08:37)
[2023-01-09] MEDS: METFORMIN ER 500 MG PO (08:37)
[2023-01-09] MEDS: ASPIRIN 81 MG TABLET EC PO (08:37)
[2023-01-09 09:57] VITALS: BP 130/63; PULSE 64; RESP 18; TEMP 36.2; O2SAT 93
[2023-01-09 15:00] VITALS: TEMP 36.7; O2SAT 96
[2023-01-09] MEDS: DONEPEZIL 5 MG TABLET PO (19:48)
[2023-01-09] MEDS: MIRTAZAPINE 15 MG TABLET 7.5 MG PO (19:48)
[2023-01-09] MEDS: TRAMADOL HCL 50 MG TABLET PO (19:48)
[2023-01-09] MEDS: MELATONIN 3 MG TABLET 5 MG PO (19:48)
[2023-01-09 23:00] VITALS: TEMP 37.1; O2SAT 91
[2023-01-10] MEDS: TRAMADOL HCL 50 MG TABLET PO ×2 (03:02→19:43)
[2023-01-10] MEDS: OMEPRAZOLE 20 MG CAPSULE DR PO (06:41)
[2023-01-10] MEDS: LEVOTHYROXINE 50 MCG TABLET PO (06:41)
[2023-01-10] MEDS: METOPROLOL SUCCINATE (XL) 25 MG TAB PO (07:17)
[2023-01-10] MEDS: NON-FORMULARY MEDICATION INH (07:17)
[2023-01-10] MEDS: ASPIRIN 81 MG TABLET EC PO (07:17)
[2023-01-10] MEDS: ACETAMINOPHEN 500 MG TABLET 1000 MG PO ×3 (07:17→23:23)
[2023-01-10] MEDS: METFORMIN ER 500 MG PO (07:17)
[2023-01-10] MEDS: SERTRALINE 100 MG TABLET 125 MG PO (07:17)
[2023-01-10 10:17] VITALS: TEMP 36.4; O2SAT 94
[2023-01-10 15:00] VITALS: TEMP 36.6; O2SAT 96
[2023-01-10] MEDS: DONEPEZIL 5 MG TABLET PO (19:43)
[2023-01-10] MEDS: MELATONIN 3 MG TABLET 5 MG PO (19:43)
[2023-01-10] MEDS: MIRTAZAPINE 15 MG TABLET 7.5 MG PO (19:43)
[2023-01-10 23:00] VITALS: TEMP 37.2; O2SAT 92
[2023-01-11 07:00] VITALS: TEMP 35.9; O2SAT 91
[2023-01-11] MEDS: LEVOTHYROXINE 50 MCG TABLET PO (07:51)
[2023-01-11] MEDS: OMEPRAZOLE 20 MG CAPSULE DR PO (07:51)
[2023-01-11] MEDS: ASPIRIN 81 MG TABLET EC PO (07:52)
[2023-01-11] MEDS: SERTRALINE 100 MG TABLET 125 MG PO (07:52)
[2023-01-11] MEDS: METFORMIN ER 500 MG PO (07:52)
[2023-01-11] MEDS: METOPROLOL SUCCINATE (XL) 25 MG TAB PO (07:52)
[2023-01-11] MEDS: ACETAMINOPHEN 500 MG TABLET 1000 MG PO ×3 (07:52→23:33)
[2023-01-11] MEDS: NON-FORMULARY MEDICATION INH (07:53)
[2023-01-11 15:00] VITALS: TEMP 36.6; O2SAT 93
[2023-01-11] MEDS: MELATONIN 3 MG TABLET 5 MG PO (19:19)
[2023-01-11] MEDS: TRAMADOL HCL 50 MG TABLET PO (19:19)
[2023-01-11] MEDS: MIRTAZAPINE 15 MG TABLET 7.5 MG PO (19:19)
[2023-01-11] MEDS: DONEPEZIL 5 MG TABLET PO (19:19)
[2023-01-11 23:00] VITALS: TEMP 37.1; O2SAT 92
[2023-01-12] MEDS: LEVOTHYROXINE 50 MCG TABLET PO (06:49)
[2023-01-12] MEDS: OMEPRAZOLE 20 MG CAPSULE DR PO (06:49)
[2023-01-12 06:50] VITALS: TEMP 37; O2SAT 94
[2023-01-12] MEDS: METOPROLOL SUCCINATE (XL) 25 MG TAB PO (07:00)
[2023-01-12] MEDS: ACETAMINOPHEN 500 MG TABLET 1000 MG PO ×3 (07:00→22:53)
[2023-01-12] MEDS: ASPIRIN 81 MG TABLET EC PO (07:00)
[2023-01-12] MEDS: METFORMIN ER 500 MG PO (07:00)
[2023-01-12] MEDS: NON-FORMULARY MEDICATION INH (07:00)
[2023-01-12] MEDS: SERTRALINE 100 MG TABLET 125 MG PO (07:00)
[2023-01-12] MEDS: LOPERAMIDE HCL 2 MG CAPSULE PO (13:49)
--- NOTE | 2023-01-12 13:54 | PC.NURSE ---
Carton Counter Feeder administered 4 mg PRN Imodium po this afternoon due to NARs reporting resident having 3 loose stools this shift. Temp 97.7. Carton Counter Feeder also placed resident on isolation precautions. Evening shift being updated as well as OPERATING ROOM SURGICAL TECHNICIAN.
[2023-01-12 15:00] VITALS: TEMP 36.7; O2SAT 97
[2023-01-12] MEDS: TRAMADOL HCL 50 MG TABLET PO (19:11)
[2023-01-12] MEDS: DONEPEZIL 5 MG TABLET PO (19:11)
[2023-01-12] MEDS: MELATONIN 3 MG TABLET 5 MG PO (19:11)
[2023-01-12] MEDS: MIRTAZAPINE 15 MG TABLET 7.5 MG PO (19:11)
--- NOTE | 2023-01-12 21:59 | PC.NURSE ---
Bowel Status: Resident denies having loose stools - overnight staff confirms that. Resident had 3 well formed BM, not diarrhea.
--- NOTE | 2023-01-12 22:21 | PC.NURSE ---
Isolation Status: Resident is off isolation because she did not have three loose stools last night. Had 3 well-formed BM.
[2023-01-12 23:00] VITALS: TEMP 37.1; O2SAT 93
[2023-01-13] MEDS: LEVOTHYROXINE 50 MCG TABLET PO (07:06)
[2023-01-13] MEDS: OMEPRAZOLE 20 MG CAPSULE DR PO (07:06)
[2023-01-13] MEDS: SERTRALINE 100 MG TABLET 125 MG PO (07:07)
[2023-01-13] MEDS: ASPIRIN 81 MG TABLET EC PO (07:07)
[2023-01-13] MEDS: METFORMIN ER 500 MG PO (07:07)
[2023-01-13] MEDS: METOPROLOL SUCCINATE (XL) 25 MG TAB PO (07:07)
[2023-01-13] MEDS: NON-FORMULARY MEDICATION INH (07:07)
[2023-01-13] MEDS: ACETAMINOPHEN 500 MG TABLET 1000 MG PO ×3 (07:07→23:41)
[2023-01-13 10:03] VITALS: TEMP 36.4; O2SAT 96
[2023-01-13 12:25] LABS: SARS PCR* Negative SARS-CoV-2 (Negative)
[2023-01-13 15:44] VITALS: TEMP 36.5; O2SAT 95
[2023-01-13] MEDS: MIRTAZAPINE 15 MG TABLET 7.5 MG PO (19:30)
[2023-01-13] MEDS: DONEPEZIL 5 MG TABLET PO (19:30)
[2023-01-13] MEDS: TRAMADOL HCL 50 MG TABLET PO (19:30)
[2023-01-13] MEDS: MELATONIN 3 MG TABLET 5 MG PO (19:30)
[2023-01-13 23:00] VITALS: TEMP 37.1; O2SAT 93
--- NOTE | 2023-01-14 03:31 | PC.NURSE ---
WEEKLY CHARTING - WEEK 4: Vital signs reviewed- no concerns. Temporary and comprehensive care plan reviewed - no change. Documented behaviors x4 in the last month. Psychotropic medications: melatonin 5mg at HS, mirtazapine 7.5mg at HS, and sertraline 125mg daily. No noted adverse effects. Able to communicate needs verbally. Staff also anticipate needs. Hearing impaired. Wears bilateral hearing aids. Visual impairment is corrected with glasses. Periods of confusion and forgetfulness. All medications administered by licensed nurse. Health condition stable at this time.
[2023-01-14] MEDS: OMEPRAZOLE 20 MG CAPSULE DR PO (06:34)
[2023-01-14] MEDS: LEVOTHYROXINE 50 MCG TABLET PO (06:34)
[2023-01-14] MEDS: ACETAMINOPHEN 500 MG TABLET 1000 MG PO ×3 (07:36→22:55)
[2023-01-14] MEDS: SERTRALINE 100 MG TABLET 125 MG PO (07:37)
[2023-01-14] MEDS: METFORMIN ER 500 MG PO (07:37)
[2023-01-14] MEDS: NON-FORMULARY MEDICATION INH (07:37)
[2023-01-14] MEDS: ASPIRIN 81 MG TABLET EC PO (07:37)
[2023-01-14] MEDS: METOPROLOL SUCCINATE (XL) 25 MG TAB PO (07:37)
[2023-01-14 09:42] VITALS: BMI 22.3
[2023-01-14 09:59] VITALS: TEMP 36.4; O2SAT 96
[2023-01-14 11:12] VITALS: BMI 22.3
--- NOTE | 2023-01-14 12:15 | PC.SPIRITC ---
I provided visit for support and connection.
--- NOTE | 2023-01-14 14:55 | PC.SOCIAL ---
Resident's care conference was held today. Resident's son Chris and daughter Alison attended. Resident's health is stable, no s/s of depression noted. Resident has adjusted well to living here and family is pleased with how much better resident seems to be and feel compared to when she lived home alone. Resident memory fluctuates and enjoys being at the LT but tells daughter she does not like when staff make her walk with her walker. Family wants staff to continue to encourage resident to walk with a walker. Family visits almost daily and is very supportive.
[2023-01-14 16:11] VITALS: TEMP 36.6; O2SAT 95
--- NOTE | 2023-01-14 18:40 | PC.NURSE ---
Weekly charting Week 4: Comprehensive care plan and temporary care plan reviewed. No changes made. no added to temporary care plan. Able to communicates needs verbally. Hearing impaired, wear bilateral hearing aids. Has visual impairment, wear eye glass. Noted intermitted episode of confusion and forgetfulness. behavior noted in the past month. On setraline 125mg daily ,Mirtazipine 7.5mg HS. no changes of medication. No adverse effects noted. All medication administer by the Nurse.General health condition is stable.
[2023-01-14] MEDS: MELATONIN 3 MG TABLET 5 MG PO (19:31)
[2023-01-14] MEDS: TRAMADOL HCL 50 MG TABLET PO (19:31)
[2023-01-14] MEDS: MIRTAZAPINE 15 MG TABLET 7.5 MG PO (19:31)
[2023-01-14] MEDS: DONEPEZIL 5 MG TABLET PO (19:31)
--- NOTE | 2023-01-14 20:54 | PC.NURSE ---
CARE CONFERENCE: Care conference meeting held with all members of care team present with son and daughter. Due to residents cognition level she did not participate. Resident has continued to become stronger in the past 3 months. Resident has become more compliant with calling for assistance when getting out of bed. Discussed fall risk. She does use her w/c at times. Resident does propel her w/c at times. At times staff assist with w/c propelling. Nursing reviewed that resident continues to need 1 assist with adls, transfers, and mobility. Staff propels resident in w/c when needed. Daughter Alison notes that resident reports that she does not like ambulating with her walker with staff. Family is in agreement that resident should continue to ambulate daily and encourage resident to do so. Discussed that resident has been incontinent of bowel and bladder. Discussed that resident becomes more confused during the evening hours. Resident calls daughter often and sometimes has problems using the phone but daughter reports this is user error. Discussed medications and dx associated with them. Copy given to family. Discussed recent episodes of loose stools which has resolved. Will continue to monitor at this time. DNR/DNI. POLST reviewed. Uses no restraints. Does use 1- 1/4 side rail up to assist with positioning.? Resident is given medications by staff.? Vulnerable due to mobility limitations, cognition and hearing loss. Discussed that residents appetite has increased and she is eating a larger percent of meals, enlive, and ensure with staff assistance at times. Discussed weight, slight increase since admit. Discussed hearing, vision, and dental. At time family/resident have no concerns and no appointments needed. No further questions/concerns at this time.
[2023-01-14 23:00] VITALS: TEMP 37.2; O2SAT 93
[2023-01-15] MEDS: NON-FORMULARY MEDICATION PO (05:27)
[2023-01-15] MEDS: OMEPRAZOLE 20 MG CAPSULE DR PO (07:07)
[2023-01-15] MEDS: ASPIRIN 81 MG TABLET EC PO (07:07)
[2023-01-15] MEDS: METOPROLOL SUCCINATE (XL) 25 MG TAB PO (07:07)
[2023-01-15] MEDS: ACETAMINOPHEN 500 MG TABLET 1000 MG PO ×3 (07:07→23:19)
[2023-01-15] MEDS: NON-FORMULARY MEDICATION INH (07:07)
[2023-01-15] MEDS: METFORMIN ER 500 MG PO (07:07)
[2023-01-15] MEDS: LEVOTHYROXINE 50 MCG TABLET PO (07:07)
[2023-01-15] MEDS: SERTRALINE 100 MG TABLET 125 MG PO (07:08)
[2023-01-15 10:11] VITALS: TEMP 36.6; O2SAT 95
[2023-01-15 15:00] VITALS: TEMP 36.8; O2SAT 94
[2023-01-15] MEDS: DONEPEZIL 5 MG TABLET PO (19:52)
[2023-01-15] MEDS: MIRTAZAPINE 15 MG TABLET 7.5 MG PO (19:52)
[2023-01-15] MEDS: TRAMADOL HCL 50 MG TABLET PO (19:52)
[2023-01-15] MEDS: MELATONIN 3 MG TABLET 5 MG PO (19:52)
--- NOTE | 2023-01-15 22:23 | PC.NURSE ---
Behavior: Resident was sitting up in bed and had triggered bed alarm. Staff went into assist with resident for toileting. Resident became upset with staff and began to kick out legs and outstretch arms to hit staff. Another aide came in to assist and resident began yelling and hitting her as well. Res. stated she had a wet brief and the bed was soaking wet. Resident became frustrated with assistance and stated she wanted to go to the bathroom herself. Aide told nurse that resident had made comment to her that, If you don't believe me that I'm peeing, you can lick my pad. Aide came and got data analyst report writer, data analyst report writer assisted with toileting. Resident intentionally urinated on the bathroom floor to show data analyst report writer that she has in fact peed. Merchandising Professor validated resident's concern and provided reassurance. Resident up to bathroom x 4 since 7pm. Resident states no burning with urination.
[2023-01-15 23:00] VITALS: TEMP 37.2; O2SAT 94
[2023-01-16] MEDS: METOPROLOL SUCCINATE (XL) 25 MG TAB PO (07:22)
[2023-01-16] MEDS: ASPIRIN 81 MG TABLET EC PO (07:22)
[2023-01-16] MEDS: ACETAMINOPHEN 500 MG TABLET 1000 MG PO ×3 (07:22→22:51)
[2023-01-16] MEDS: NON-FORMULARY MEDICATION INH (07:22)
[2023-01-16] MEDS: OMEPRAZOLE 20 MG CAPSULE DR PO (07:22)
[2023-01-16] MEDS: METFORMIN ER 500 MG PO (07:22)
[2023-01-16] MEDS: SERTRALINE 100 MG TABLET 125 MG PO (07:22)
[2023-01-16] MEDS: LEVOTHYROXINE 50 MCG TABLET PO (07:22)
--- NOTE | 2023-01-16 09:03 | PC.SPIRITC ---
Late entry from 01/15/23: I offered a palm branch to Amberly in light of Palm Friday coming up. She expressed gratitude; visit provided for jose resources and connection.
[2023-01-16 10:22] VITALS: BP 138/70; PULSE 72; RESP 18; TEMP 36.6; O2SAT 72; O2SAT 96
[2023-01-16 15:00] VITALS: TEMP 36.6; O2SAT 95
[2023-01-16] MEDS: MIRTAZAPINE 15 MG TABLET 7.5 MG PO (19:08)
[2023-01-16] MEDS: TRAMADOL HCL 50 MG TABLET PO (19:08)
[2023-01-16] MEDS: DONEPEZIL 5 MG TABLET PO (19:08)
[2023-01-16] MEDS: MELATONIN 3 MG TABLET 5 MG PO (19:08)
[2023-01-16 23:00] VITALS: TEMP 37.2; O2SAT 94
[2023-01-17] MEDS: guaiFENesin 100 MG/ML CUP PO (06:54)
[2023-01-17] MEDS: OMEPRAZOLE 20 MG CAPSULE DR PO (07:00)
[2023-01-17] MEDS: ACETAMINOPHEN 500 MG TABLET 1000 MG PO ×3 (07:01→23:29)
[2023-01-17] MEDS: LEVOTHYROXINE 50 MCG TABLET PO (07:01)
[2023-01-17] MEDS: METOPROLOL SUCCINATE (XL) 25 MG TAB PO (07:01)
[2023-01-17] MEDS: METFORMIN ER 500 MG PO (07:01)
[2023-01-17] MEDS: NON-FORMULARY MEDICATION INH (07:01)
[2023-01-17] MEDS: SERTRALINE 100 MG TABLET 125 MG PO (07:01)
[2023-01-17] MEDS: ASPIRIN 81 MG TABLET EC PO (07:01)
[2023-01-17 10:10] VITALS: TEMP 36.7; O2SAT 94
[2023-01-17 15:00] VITALS: TEMP 37.1; O2SAT 92
[2023-01-17] MEDS: MELATONIN 3 MG TABLET 5 MG PO (19:21)
[2023-01-17] MEDS: MIRTAZAPINE 15 MG TABLET 7.5 MG PO (19:21)
[2023-01-17] MEDS: DONEPEZIL 5 MG TABLET PO (19:21)
[2023-01-17] MEDS: TRAMADOL HCL 50 MG TABLET PO (19:21)
[2023-01-17 23:47] VITALS: TEMP 36.7; O2SAT 95
[2023-01-18] MEDS: TRAMADOL HCL 50 MG TABLET PO ×2 (02:34→19:35)
[2023-01-18] MEDS: OMEPRAZOLE 20 MG CAPSULE DR PO (07:01)
[2023-01-18] MEDS: NON-FORMULARY MEDICATION INH (07:01)
[2023-01-18] MEDS: ASPIRIN 81 MG TABLET EC PO (07:01)
[2023-01-18] MEDS: ACETAMINOPHEN 500 MG TABLET 1000 MG PO ×3 (07:01→23:45)
[2023-01-18] MEDS: METOPROLOL SUCCINATE (XL) 25 MG TAB PO (07:01)
[2023-01-18] MEDS: LEVOTHYROXINE 50 MCG TABLET PO (07:01)
[2023-01-18] MEDS: SERTRALINE 100 MG TABLET 125 MG PO (07:01)
[2023-01-18] MEDS: METFORMIN ER 500 MG PO (07:01)
[2023-01-18 12:53] VITALS: TEMP 36.6; O2SAT 96
[2023-01-18 15:00] VITALS: TEMP 36.8; O2SAT 92
[2023-01-18] MEDS: MIRTAZAPINE 15 MG TABLET 7.5 MG PO (19:34)
[2023-01-18] MEDS: MELATONIN 3 MG TABLET 5 MG PO (19:34)
[2023-01-18] MEDS: DONEPEZIL 5 MG TABLET PO (19:34)
[2023-01-19 00:04] VITALS: TEMP 36.7; O2SAT 94
[2023-01-19] MEDS: LEVOTHYROXINE 50 MCG TABLET PO (06:33)
[2023-01-19] MEDS: OMEPRAZOLE 20 MG CAPSULE DR PO (06:33)
[2023-01-19] MEDS: METOPROLOL SUCCINATE (XL) 25 MG TAB PO (07:01)
[2023-01-19] MEDS: ACETAMINOPHEN 500 MG TABLET 1000 MG PO ×2 (07:01→23:25)
[2023-01-19] MEDS: ASPIRIN 81 MG TABLET EC PO (07:01)
[2023-01-19] MEDS: NON-FORMULARY MEDICATION INH (07:01)
[2023-01-19] MEDS: SERTRALINE 100 MG TABLET 125 MG PO (07:01)
[2023-01-19] MEDS: METFORMIN ER 500 MG PO (07:01)
[2023-01-19 09:40] VITALS: TEMP 36.4; O2SAT 94
--- NOTE | 2023-01-19 09:41 | PC.NURSE ---
Status: Resident complained of R eye pain this morning. This senior technical writer was unable to see any object in her eye and no redness noted
[2023-01-19 15:00] VITALS: TEMP 36.6; O2SAT 94
[2023-01-19] MEDS: TRAMADOL HCL 50 MG TABLET PO (19:50)
[2023-01-19] MEDS: MIRTAZAPINE 15 MG TABLET 7.5 MG PO (19:50)
[2023-01-19] MEDS: MELATONIN 3 MG TABLET 5 MG PO (19:50)
[2023-01-19] MEDS: DONEPEZIL 5 MG TABLET PO (19:50)
[2023-01-19 23:44] VITALS: TEMP 36.6; O2SAT 94
--- NOTE | 2023-01-20 04:13 | PC.NURSE ---
Res c/o of R eye pain. Upon assessment, Res was rubbing the site stating it hurting on the outer side of the R eye. No redness, No foreign object noted. Mechanical Developer Prover applied a warm washcloth. Relieve the pain.
[2023-01-20 07:00] VITALS: TEMP 36.7; O2SAT 93
[2023-01-20] MEDS: LEVOTHYROXINE 50 MCG TABLET PO (07:36)
[2023-01-20] MEDS: ACETAMINOPHEN 500 MG TABLET 1000 MG PO ×3 (07:36→23:27)
[2023-01-20] MEDS: OMEPRAZOLE 20 MG CAPSULE DR PO (07:36)
[2023-01-20] MEDS: SERTRALINE 100 MG TABLET 125 MG PO (07:37)
[2023-01-20] MEDS: METFORMIN ER 500 MG PO (07:37)
[2023-01-20] MEDS: ASPIRIN 81 MG TABLET EC PO (07:37)
[2023-01-20] MEDS: METOPROLOL SUCCINATE (XL) 25 MG TAB PO (07:37)
[2023-01-20] MEDS: NON-FORMULARY MEDICATION INH (07:38)
[2023-01-20 12:06] LABS: SARS PCR* Negative SARS-CoV-2 (Negative)
[2023-01-20 15:00] VITALS: TEMP 36.6; O2SAT 97
[2023-01-20] MEDS: MIRTAZAPINE 15 MG TABLET 7.5 MG PO (19:40)
[2023-01-20] MEDS: MELATONIN 3 MG TABLET 5 MG PO (19:40)
[2023-01-20] MEDS: DONEPEZIL 5 MG TABLET PO (19:40)
[2023-01-20] MEDS: TRAMADOL HCL 50 MG TABLET PO (19:40)
[2023-01-21 01:21] VITALS: TEMP 36.6; O2SAT 94
--- NOTE | 2023-01-21 02:39 | PC.NURSE ---
Weekly Charting Week 1: Vital signs reviewed. Berg occasional elevated BP, PIPELINE INTEGRITY ENGINEER aware, continue monitoring weekly. Comprehensive care plan reviewed. No changes made. Nothing added to temporary care plan. Chronic back pain controlled with scheduled Acetaminophen 1000mg TID, Scheduled Tramadol 50mg HS. Occasional used PRN tramadol it usually effective. Recently complained of R eye Pain, wrote in PIPELINE INTEGRITY ENGINEER book to evaluate. Requires extensive 1 staff assist with bathing, dressing grooming. Able to perform oral care after staff set up. On regular diet and thin liquids. No swallowing problem issue. Able to eat independently after set up only. No changes of appetite noted.
[2023-01-21] MEDS: OMEPRAZOLE 20 MG CAPSULE DR PO (06:37)
[2023-01-21] MEDS: LEVOTHYROXINE 50 MCG TABLET PO (06:37)
--- NOTE | 2023-01-21 07:09 | PC.NURSE ---
Week #1: Care plan reviewed, no changes made. Nothing added to temporary care plan. Resident needs extensive assist with dressing and bathing. Limited to extensive assist with grooming. Encourage resident to participate as able. Does oral cares after staff set up. Staff assist/complete as needed. Independent with feeding after set up. Is on regular diet, thin liquids. No problems with chewing/swallowing noted. Vital signs reviewed, no concerns. Continue weekly monitoring. Pain: Has chronic pain managed with Tylenol 1000mg @08,12, & 23. Ultram 50mg @ HS & TID PRN. PRN Ultram used occasionally with relief most of the time. She can tell when in pain and staff also anticipates. Current pain regimen seems effective.
[2023-01-21] MEDS: ASPIRIN 81 MG TABLET EC PO (08:36)
[2023-01-21] MEDS: ACETAMINOPHEN 500 MG TABLET 1000 MG PO ×2 (08:36→23:24)
[2023-01-21] MEDS: METFORMIN ER 500 MG PO (08:37)
[2023-01-21] MEDS: NON-FORMULARY MEDICATION INH (08:37)
[2023-01-21] MEDS: METOPROLOL SUCCINATE (XL) 25 MG TAB PO (08:37)
[2023-01-21] MEDS: SERTRALINE 100 MG TABLET 125 MG PO (08:37)
[2023-01-21 10:30] VITALS: TEMP 36.4; O2SAT 96
--- NOTE | 2023-01-21 11:57 | PC.NURSE ---
Order: Discontinue Tylenol 1000mg at noon by NIB ASSEMBLERAnt for refusal.
[2023-01-21 15:00] VITALS: TEMP 36.9; O2SAT 93
[2023-01-21] MEDS: TRAMADOL HCL 50 MG TABLET PO (19:49)
[2023-01-21] MEDS: MIRTAZAPINE 15 MG TABLET 7.5 MG PO (19:51)
[2023-01-21] MEDS: MELATONIN 3 MG TABLET 5 MG PO (19:51)
[2023-01-21] MEDS: DONEPEZIL 5 MG TABLET PO (19:51)
[2023-01-21 23:00] VITALS: TEMP 37.1; O2SAT 93
[2023-01-22] MEDS: NON-FORMULARY MEDICATION PO (05:29)
[2023-01-22] MEDS: LEVOTHYROXINE 50 MCG TABLET PO (06:47)
[2023-01-22] MEDS: OMEPRAZOLE 20 MG CAPSULE DR PO (06:47)
[2023-01-22] MEDS: METFORMIN ER 500 MG PO (07:12)
[2023-01-22] MEDS: ASPIRIN 81 MG TABLET EC PO (07:12)
[2023-01-22] MEDS: NON-FORMULARY MEDICATION INH (07:12)
[2023-01-22] MEDS: ACETAMINOPHEN 500 MG TABLET 1000 MG PO ×2 (07:12→23:16)
[2023-01-22] MEDS: SERTRALINE 100 MG TABLET 125 MG PO (07:12)
[2023-01-22] MEDS: METOPROLOL SUCCINATE (XL) 25 MG TAB PO (07:12)
[2023-01-22 09:52] VITALS: TEMP 36.5; O2SAT 95
[2023-01-22 15:00] VITALS: TEMP 36.8; O2SAT 94
--- NOTE | 2023-01-22 17:22 | PC.NURSE ---
MDS clarification: Staff were interviewed regarding ADL documentation. Resident is limited assist with all ADLs except for personal hygiene, dressing, and toileting, in which resident requires extensive assist. Was coded as such.
[2023-01-22] MEDS: DONEPEZIL 5 MG TABLET PO (19:26)
[2023-01-22] MEDS: MIRTAZAPINE 15 MG TABLET 7.5 MG PO (19:26)
[2023-01-22] MEDS: MELATONIN 3 MG TABLET 5 MG PO (19:26)
[2023-01-22] MEDS: TRAMADOL HCL 50 MG TABLET PO (19:26)
[2023-01-22] MEDS: NYSTATIN CREAM 30 GM 1 APPLIC TOPICAL (20:41)
[2023-01-22 23:00] VITALS: TEMP 37.1; O2SAT 93
[2023-01-23] MEDS: LEVOTHYROXINE 50 MCG TABLET PO (06:43)
[2023-01-23] MEDS: OMEPRAZOLE 20 MG CAPSULE DR PO (06:43)
[2023-01-23] MEDS: NYSTATIN CREAM 30 GM 1 APPLIC TOPICAL ×2 (07:30→21:45)
[2023-01-23] MEDS: METOPROLOL SUCCINATE (XL) 25 MG TAB PO (08:37)
[2023-01-23] MEDS: ACETAMINOPHEN 500 MG TABLET 1000 MG PO ×2 (08:37→23:24)
[2023-01-23] MEDS: METFORMIN ER 500 MG PO (08:37)
[2023-01-23] MEDS: SERTRALINE 100 MG TABLET 125 MG PO (08:37)
[2023-01-23] MEDS: NON-FORMULARY MEDICATION INH (08:37)
[2023-01-23] MEDS: ASPIRIN 81 MG TABLET EC PO (08:37)
[2023-01-23 09:57] VITALS: BP 132/72; PULSE 68; RESP 18; TEMP 36.3; O2SAT 68; O2SAT 94
[2023-01-23 15:00] VITALS: TEMP 37; O2SAT 94
[2023-01-23] MEDS: TRAMADOL HCL 50 MG TABLET PO (19:16)
[2023-01-23] MEDS: MIRTAZAPINE 15 MG TABLET 7.5 MG PO (19:16)
[2023-01-23] MEDS: MELATONIN 3 MG TABLET 5 MG PO (19:16)
[2023-01-23] MEDS: DONEPEZIL 5 MG TABLET PO (19:16)
[2023-01-23 23:00] VITALS: TEMP 37.1; O2SAT 94
[2023-01-24] MEDS: LEVOTHYROXINE 50 MCG TABLET PO (07:08)
[2023-01-24] MEDS: OMEPRAZOLE 20 MG CAPSULE DR PO (07:08)
[2023-01-24] MEDS: ACETAMINOPHEN 500 MG TABLET 1000 MG PO ×2 (07:08→23:24)
[2023-01-24] MEDS: ASPIRIN 81 MG TABLET EC PO (07:08)
[2023-01-24] MEDS: METFORMIN ER 500 MG PO (07:09)
[2023-01-24] MEDS: SERTRALINE 100 MG TABLET 125 MG PO (07:09)
[2023-01-24] MEDS: NON-FORMULARY MEDICATION INH (07:09)
[2023-01-24] MEDS: METOPROLOL SUCCINATE (XL) 25 MG TAB PO (07:09)
[2023-01-24 10:41] VITALS: TEMP 36.8; O2SAT 96
[2023-01-24 15:00] VITALS: TEMP 36.7; O2SAT 90
[2023-01-24] MEDS: MIRTAZAPINE 15 MG TABLET 7.5 MG PO (19:29)
[2023-01-24] MEDS: DONEPEZIL 5 MG TABLET PO (19:29)
[2023-01-24] MEDS: MELATONIN 3 MG TABLET 5 MG PO (19:29)
[2023-01-24] MEDS: TRAMADOL HCL 50 MG TABLET PO (19:31)
[2023-01-24 23:00] VITALS: TEMP 36.9; O2SAT 91
[2023-01-25 07:00] VITALS: TEMP 36.7; O2SAT 97
[2023-01-25] MEDS: METOPROLOL SUCCINATE (XL) 25 MG TAB PO (07:59)
[2023-01-25] MEDS: ASPIRIN 81 MG TABLET EC PO (07:59)
[2023-01-25] MEDS: OMEPRAZOLE 20 MG CAPSULE DR PO (07:59)
[2023-01-25] MEDS: ACETAMINOPHEN 500 MG TABLET 1000 MG PO ×2 (07:59→23:17)
[2023-01-25] MEDS: LEVOTHYROXINE 50 MCG TABLET PO (07:59)
[2023-01-25] MEDS: METFORMIN ER 500 MG PO (07:59)
[2023-01-25] MEDS: NON-FORMULARY MEDICATION INH (08:00)
[2023-01-25] MEDS: SERTRALINE 100 MG TABLET 125 MG PO (08:00)
--- NOTE | 2023-01-25 09:32 | PC.NURSE ---
DARIN reports that resident had one loose BM on 01/23/23. Therefore, resident not on bowel protocol at this time.
--- NOTE | 2023-01-25 12:18 | PC.NURSE ---
Resident noted to have had one emesis during breakfast this morning. Staff then assisted resident back to room. She reported, I had started eating the sausage and the eggs and I didn't even feel like I was going to throw up. Temp noted to be 97.2 when reassessed. Resident reported feeling better after breakfast when asked. Resident has since had no further episodes of emesis and is eating lunch at this time.
[2023-01-25 15:00] VITALS: TEMP 37.4; O2SAT 94
[2023-01-25] MEDS: MIRTAZAPINE 15 MG TABLET 7.5 MG PO (19:29)
[2023-01-25] MEDS: DONEPEZIL 5 MG TABLET PO (19:29)
[2023-01-25] MEDS: MELATONIN 3 MG TABLET 5 MG PO (19:29)
[2023-01-25] MEDS: TRAMADOL HCL 50 MG TABLET PO (19:30)
[2023-01-25 23:00] VITALS: TEMP 37; O2SAT 93
[2023-01-26] MEDS: ACETAMINOPHEN 500 MG TABLET 1000 MG PO ×2 (07:18→23:17)
[2023-01-26] MEDS: METOPROLOL SUCCINATE (XL) 25 MG TAB PO (07:18)
[2023-01-26] MEDS: METFORMIN ER 500 MG PO (07:18)
[2023-01-26] MEDS: OMEPRAZOLE 20 MG CAPSULE DR PO (07:18)
[2023-01-26] MEDS: ASPIRIN 81 MG TABLET EC PO (07:18)
[2023-01-26] MEDS: LEVOTHYROXINE 50 MCG TABLET PO (07:18)
[2023-01-26] MEDS: SERTRALINE 100 MG TABLET 125 MG PO (07:19)
[2023-01-26] MEDS: NON-FORMULARY MEDICATION INH (07:19)
[2023-01-26 09:48] VITALS: TEMP 36.5; O2SAT 95
[2023-01-26 15:00] VITALS: TEMP 36.8; O2SAT 91
[2023-01-26] MEDS: MELATONIN 3 MG TABLET 5 MG PO (19:05)
[2023-01-26] MEDS: TRAMADOL HCL 50 MG TABLET PO (19:05)
[2023-01-26] MEDS: MIRTAZAPINE 15 MG TABLET 7.5 MG PO (19:05)
[2023-01-26] MEDS: DONEPEZIL 5 MG TABLET PO (19:05)
[2023-01-26 23:00] VITALS: TEMP 37; O2SAT 93
[2023-01-27] MEDS: OMEPRAZOLE 20 MG CAPSULE DR PO (06:42)
[2023-01-27] MEDS: LEVOTHYROXINE 50 MCG TABLET PO (06:43)
[2023-01-27 07:00] VITALS: TEMP 36.8; O2SAT 92
[2023-01-27] MEDS: NON-FORMULARY MEDICATION INH (07:01)
[2023-01-27] MEDS: ACETAMINOPHEN 500 MG TABLET 1000 MG PO ×2 (07:01→23:41)
[2023-01-27] MEDS: METFORMIN ER 500 MG PO (07:01)
[2023-01-27] MEDS: ASPIRIN 81 MG TABLET EC PO (07:01)
[2023-01-27] MEDS: SERTRALINE 100 MG TABLET 125 MG PO (07:01)
[2023-01-27] MEDS: METOPROLOL SUCCINATE (XL) 25 MG TAB PO (07:01)
[2023-01-27 14:02] LABS: SARS PCR* Negative SARS-CoV-2 (Negative)
[2023-01-27 15:00] VITALS: TEMP 36.5; O2SAT 95
[2023-01-27] MEDS: MELATONIN 3 MG TABLET 5 MG PO (19:24)
[2023-01-27] MEDS: DONEPEZIL 5 MG TABLET PO (19:24)
[2023-01-27] MEDS: MIRTAZAPINE 15 MG TABLET 7.5 MG PO (19:24)
[2023-01-27] MEDS: TRAMADOL HCL 50 MG TABLET PO (19:25)
[2023-01-27 23:00] VITALS: TEMP 37.2; O2SAT 93
--- NOTE | 2023-01-28 01:46 | PC.NURSE ---
WEEKLY CHARTING - WEEK 2: Vital signs reviewed - no concerns. Temporary and comprehensive care plan reviewed - no change. Assist of 1 with gait belt for transfers and ambulation. Often self-transfers. Uses 4WW for ambulation. Independent with bed mobility with cueing from staff. Left 1/4 side rail as an enabler. Propels w/c independently, staff provide assistance for distance/destination. At high risk for falls per last fall risk assessment. Fall interventions: Q 30-minute safety checks, non-slip footwear, call light in reach, falling star magnet, bed in lowest position with brakes locked, w/c next to bed with brakes locked, bed and chair alarm in place and active.?
[2023-01-28] MEDS: METFORMIN ER 500 MG PO (07:23)
[2023-01-28] MEDS: ASPIRIN 81 MG TABLET EC PO (07:23)
[2023-01-28] MEDS: LEVOTHYROXINE 50 MCG TABLET PO (07:23)
[2023-01-28] MEDS: ACETAMINOPHEN 500 MG TABLET 1000 MG PO ×2 (07:23→23:49)
[2023-01-28] MEDS: OMEPRAZOLE 20 MG CAPSULE DR PO (07:23)
[2023-01-28] MEDS: METOPROLOL SUCCINATE (XL) 25 MG TAB PO (07:23)
[2023-01-28] MEDS: SERTRALINE 100 MG TABLET 125 MG PO (07:24)
[2023-01-28] MEDS: NON-FORMULARY MEDICATION INH (07:24)
[2023-01-28 10:21] VITALS: TEMP 36.6; O2SAT 94
--- NOTE | 2023-01-28 10:50 | PC.NURSE ---
Weekly Charting, Week 2 - Mobility: Comprehensive and temporary care plan reviewed. No changes made, nothing added to temporary care plan. Resident needs one assist, gait belt, walker with transfers and ambulation. Will often self transfers. Is able to self propel. Staff assist to longer distances and destinations. Needs assist with turning and positioning (L) 1/4 side rail up at all times as an enabler for bed mobility. Has a bed/chair alarm. Vital signs reviewed, no concerns. Fall: No falls the past month. Remains a high fall risk according to assessment done on 01/06/23. Fall interventions: Call light within reach, bed in low position with brakes locked, bed/chair alarm, non skid footwear, not to be left alone in bathroom, falling star magnet, w/c locked at bedside.
--- NOTE | 2023-01-28 12:13 | PC.NURSE ---
Recert Visit: Resident seen by Ant ALEX. Orders reviewed and renewed of 75 days with changes. Order: Increase Remeron 7.5mg to 15mg @ HS.
[2023-01-28 15:55] VITALS: TEMP 36.6; O2SAT 93
[2023-01-28] MEDS: TRAMADOL HCL 50 MG TABLET PO (19:31)
[2023-01-28] MEDS: MELATONIN 3 MG TABLET 5 MG PO (19:31)
[2023-01-28] MEDS: MIRTAZAPINE 15 MG TABLET PO (19:31)
[2023-01-28] MEDS: DONEPEZIL 5 MG TABLET PO (19:31)
[2023-01-28 23:00] VITALS: TEMP 36.9; O2SAT 94
[2023-01-29] MEDS: NON-FORMULARY MEDICATION PO (06:25)
[2023-01-29 06:43] VITALS: TEMP 36.5; O2SAT 95
[2023-01-29] MEDS: ASPIRIN 81 MG TABLET EC PO (07:20)
[2023-01-29] MEDS: METOPROLOL SUCCINATE (XL) 25 MG TAB PO (07:20)
[2023-01-29] MEDS: OMEPRAZOLE 20 MG CAPSULE DR PO (07:20)
[2023-01-29] MEDS: ACETAMINOPHEN 500 MG TABLET 1000 MG PO ×2 (07:20→23:23)
[2023-01-29] MEDS: METFORMIN ER 500 MG PO (07:20)
[2023-01-29] MEDS: LEVOTHYROXINE 50 MCG TABLET PO (07:20)
[2023-01-29] MEDS: NON-FORMULARY MEDICATION INH (07:21)
[2023-01-29] MEDS: SERTRALINE 100 MG TABLET 125 MG PO (07:21)
--- NOTE | 2023-01-29 12:10 | PC.PHA1 ---
DEFENCE FORCE MEMBER OTHER RANKS PHARMACIST'S MEDICATION REVIEW: MEDICATION MONITORING:Sertraline 125 mg daily continues. Mirtazapine 15 mg po HS, dose increase for better sleep IRREGULARITY OR COMMENTS:After review of nursing notes, I concur with current need for increased mirtazapine at HS, patient has prior history of needing stronger sleep meds that are least desirable in LTC setting. Tramadol prn order only needed 5 times since last review approx. one month ago. SUGGESTED COURSE OF ACTION TAKEN:No medication recommendations at this time.
[2023-01-29 15:00] VITALS: TEMP 36.5; O2SAT 96
[2023-01-29] MEDS: MELATONIN 3 MG TABLET 5 MG PO (19:00)
[2023-01-29] MEDS: DONEPEZIL 5 MG TABLET PO (19:00)
[2023-01-29] MEDS: TRAMADOL HCL 50 MG TABLET PO (19:00)
[2023-01-29] MEDS: MIRTAZAPINE 15 MG TABLET PO (19:00)
[2023-01-29 23:00] VITALS: TEMP 37.1; O2SAT 93
[2023-01-30] MEDS: METFORMIN ER 500 MG PO (07:48)
[2023-01-30] MEDS: NON-FORMULARY MEDICATION INH (07:48)
[2023-01-30] MEDS: ACETAMINOPHEN 500 MG TABLET 1000 MG PO ×2 (07:48→23:50)
[2023-01-30] MEDS: ASPIRIN 81 MG TABLET EC PO (07:48)
[2023-01-30] MEDS: OMEPRAZOLE 20 MG CAPSULE DR PO (07:48)
[2023-01-30] MEDS: LEVOTHYROXINE 50 MCG TABLET PO (07:48)
[2023-01-30] MEDS: METOPROLOL SUCCINATE (XL) 25 MG TAB PO (07:48)
[2023-01-30] MEDS: SERTRALINE 100 MG TABLET 125 MG PO (07:48)
[2023-01-30 10:17] VITALS: BP 124/69; PULSE 63; RESP 20; TEMP 36.8; O2SAT 96
[2023-01-30 15:00] VITALS: TEMP 36.4; O2SAT 90
[2023-01-30] MEDS: MIRTAZAPINE 15 MG TABLET PO (20:52)
[2023-01-30] MEDS: TRAMADOL HCL 50 MG TABLET PO (20:52)
[2023-01-30] MEDS: MELATONIN 3 MG TABLET 5 MG PO (20:52)
[2023-01-30] MEDS: DONEPEZIL 5 MG TABLET PO (20:52)
[2023-01-30 23:00] VITALS: TEMP 37.1; O2SAT 92
[2023-01-31] MEDS: ACETAMINOPHEN 500 MG TABLET 1000 MG PO ×2 (07:03→23:16)
[2023-01-31] MEDS: METOPROLOL SUCCINATE (XL) 25 MG TAB PO (07:03)
[2023-01-31] MEDS: METFORMIN ER 500 MG PO (07:03)
[2023-01-31] MEDS: ASPIRIN 81 MG TABLET EC PO (07:03)
[2023-01-31] MEDS: NON-FORMULARY MEDICATION INH (07:03)
[2023-01-31] MEDS: OMEPRAZOLE 20 MG CAPSULE DR PO (07:03)
[2023-01-31] MEDS: LEVOTHYROXINE 50 MCG TABLET PO (07:03)
[2023-01-31] MEDS: SERTRALINE 100 MG TABLET 125 MG PO (07:04)
[2023-01-31 10:40] VITALS: TEMP 36.6; O2SAT 95
[2023-01-31 15:00] VITALS: TEMP 37.1; O2SAT 90
[2023-01-31] MEDS: MELATONIN 3 MG TABLET 5 MG PO (19:35)
[2023-01-31] MEDS: DONEPEZIL 5 MG TABLET PO (19:35)
[2023-01-31] MEDS: MIRTAZAPINE 15 MG TABLET PO (19:36)
[2023-01-31] MEDS: TRAMADOL HCL 50 MG TABLET PO (19:36)
[2023-02-01 00:11] VITALS: TEMP 36.6; O2SAT 96
[2023-02-01] MEDS: OMEPRAZOLE 20 MG CAPSULE DR PO (06:40)
[2023-02-01] MEDS: LEVOTHYROXINE 50 MCG TABLET PO (06:42)
[2023-02-01] MEDS: METOPROLOL SUCCINATE (XL) 25 MG TAB PO (08:36)
[2023-02-01] MEDS: ASPIRIN 81 MG TABLET EC PO (08:36)
[2023-02-01] MEDS: METFORMIN ER 500 MG PO (08:36)
[2023-02-01] MEDS: NON-FORMULARY MEDICATION INH (08:36)
[2023-02-01] MEDS: ACETAMINOPHEN 500 MG TABLET 1000 MG PO ×2 (08:36→23:38)
[2023-02-01] MEDS: SERTRALINE 100 MG TABLET 125 MG PO (08:37)
[2023-02-01 10:31] VITALS: TEMP 36.6; O2SAT 94
[2023-02-01 15:00] VITALS: TEMP 35.8; O2SAT 92
[2023-02-01] MEDS: MELATONIN 3 MG TABLET 5 MG PO (19:14)
[2023-02-01] MEDS: MIRTAZAPINE 15 MG TABLET PO (19:14)
[2023-02-01] MEDS: DONEPEZIL 5 MG TABLET PO (19:14)
[2023-02-01] MEDS: TRAMADOL HCL 50 MG TABLET PO (19:15)
[2023-02-01] MEDS: guaiFENesin 100 MG/ML CUP PO (19:23)
[2023-02-01 23:52] VITALS: TEMP 36.6; O2SAT 95
[2023-02-02] MEDS: OMEPRAZOLE 20 MG CAPSULE DR PO (06:29)
[2023-02-02] MEDS: LEVOTHYROXINE 50 MCG TABLET PO (06:29)
[2023-02-02] MEDS: METFORMIN ER 500 MG PO (07:04)
[2023-02-02] MEDS: SERTRALINE 100 MG TABLET 125 MG PO (07:04)
[2023-02-02] MEDS: ACETAMINOPHEN 500 MG TABLET 1000 MG PO ×2 (07:04→23:33)
[2023-02-02] MEDS: NON-FORMULARY MEDICATION INH (07:04)
[2023-02-02] MEDS: ASPIRIN 81 MG TABLET EC PO (07:04)
[2023-02-02] MEDS: METOPROLOL SUCCINATE (XL) 25 MG TAB PO (07:04)
[2023-02-02 10:21] VITALS: TEMP 36.4; O2SAT 96
[2023-02-02 15:00] VITALS: TEMP 36; O2SAT 98
[2023-02-02] MEDS: MIRTAZAPINE 15 MG TABLET PO (19:04)
[2023-02-02] MEDS: DONEPEZIL 5 MG TABLET PO (19:04)
[2023-02-02] MEDS: MELATONIN 3 MG TABLET 5 MG PO (19:04)
[2023-02-02] MEDS: TRAMADOL HCL 50 MG TABLET PO (19:05)
[2023-02-02 23:50] VITALS: TEMP 36.6; O2SAT 96
[2023-02-03] MEDS: OMEPRAZOLE 20 MG CAPSULE DR PO (06:26)
[2023-02-03] MEDS: LEVOTHYROXINE 50 MCG TABLET PO (06:26)
[2023-02-03] MEDS: ACETAMINOPHEN 500 MG TABLET 1000 MG PO ×2 (08:15→23:10)
[2023-02-03] MEDS: NON-FORMULARY MEDICATION INH (08:16)
[2023-02-03] MEDS: SERTRALINE 100 MG TABLET 125 MG PO (08:16)
[2023-02-03] MEDS: METFORMIN ER 500 MG PO (08:16)
[2023-02-03] MEDS: METOPROLOL SUCCINATE (XL) 25 MG TAB PO (08:16)
[2023-02-03] MEDS: ASPIRIN 81 MG TABLET EC PO (08:16)
[2023-02-03 10:23] VITALS: TEMP 36.8; O2SAT 96
[2023-02-03 12:06] LABS: SARS PCR* Negative SARS-CoV-2 (Negative)
[2023-02-03 15:05] VITALS: TEMP 36.9; O2SAT 95
[2023-02-03] MEDS: DONEPEZIL 5 MG TABLET PO (19:07)
[2023-02-03] MEDS: MIRTAZAPINE 15 MG TABLET PO (19:07)
[2023-02-03] MEDS: MELATONIN 3 MG TABLET 5 MG PO (19:07)
[2023-02-03] MEDS: TRAMADOL HCL 50 MG TABLET PO (19:11)
[2023-02-03 23:00] VITALS: TEMP 36.5; O2SAT 96
--- NOTE | 2023-02-04 06:34 | PC.NURSE ---
WEEKLY CHARTING WEEK 3 TOILETING AND SKIN Vitals review , no concerns. Toileting: Comprehensive and temporary care plan reviewed, no changes made,nothing added to temporary care plan. Resident needs one assist with toileting, frequently incontinent of urine and some occasional bowel incontinence. Staff to check every 2 hours and assist as needed.Resident will also put the call light when ready to use the toilet. Resident still ambulating to the bathroom using the walker and gait belt. She wears pull ups. Pads, farhan cares, clothing managed by staff. Skin is checked during cares and on bath day, no issues at this time.
--- NOTE | 2023-02-04 06:42 | PC.NURSE ---
WEEKLY CHARTING Week 3 - Toileting & Skin Review vital sign and there is no concern. Resident`s comprehensive and temporary care plan reviewed with no new changes. Resident continues to have Polyuria and occasional episode of incontinent of bladder and bowel. Requires one assist with toileting, pericares, medium size pullups incontinent pads and dressing. Staff to check frequently on her toilet needs as resident has the tendency to self -transfer herself to toilet. Skin: Resident does not have any skin issue currently and gets her skin check on bath day. Resident is reposition every 2 hours to prevent pressure sore
[2023-02-04 07:00] VITALS: TEMP 35.9; O2SAT 92
[2023-02-04] MEDS: ACETAMINOPHEN 500 MG TABLET 1000 MG PO ×2 (07:56→23:36)
[2023-02-04] MEDS: LEVOTHYROXINE 50 MCG TABLET PO (07:56)
[2023-02-04] MEDS: METFORMIN ER 500 MG PO (07:56)
[2023-02-04] MEDS: ASPIRIN 81 MG TABLET EC PO (07:56)
[2023-02-04] MEDS: OMEPRAZOLE 20 MG CAPSULE DR PO (07:56)
[2023-02-04] MEDS: SERTRALINE 100 MG TABLET 125 MG PO (07:57)
[2023-02-04] MEDS: NON-FORMULARY MEDICATION INH (07:57)
[2023-02-04] MEDS: METOPROLOL SUCCINATE (XL) 25 MG TAB PO (07:57)
[2023-02-04 15:00] VITALS: TEMP 36.4; O2SAT 94
[2023-02-04] MEDS: MELATONIN 3 MG TABLET 5 MG PO (19:49)
[2023-02-04] MEDS: MIRTAZAPINE 15 MG TABLET PO (19:49)
[2023-02-04] MEDS: DONEPEZIL 5 MG TABLET PO (19:49)
[2023-02-04] MEDS: TRAMADOL HCL 50 MG TABLET PO (19:50)
[2023-02-04 23:00] VITALS: TEMP 36.6; O2SAT 95
[2023-02-05] MEDS: NON-FORMULARY MEDICATION PO (07:13)
[2023-02-05] MEDS: ASPIRIN 81 MG TABLET EC PO (07:50)
[2023-02-05] MEDS: LEVOTHYROXINE 50 MCG TABLET PO (07:50)
[2023-02-05] MEDS: SERTRALINE 100 MG TABLET 125 MG PO (07:50)
[2023-02-05] MEDS: METOPROLOL SUCCINATE (XL) 25 MG TAB PO (07:50)
[2023-02-05] MEDS: OMEPRAZOLE 20 MG CAPSULE DR PO (07:50)
[2023-02-05] MEDS: NON-FORMULARY MEDICATION INH (07:50)
[2023-02-05] MEDS: METFORMIN ER 500 MG PO (07:50)
[2023-02-05] MEDS: ACETAMINOPHEN 500 MG TABLET 1000 MG PO ×2 (08:43→22:58)
[2023-02-05 09:14] VITALS: TEMP 36.9; O2SAT 95
[2023-02-05] MEDS: TRAMADOL HCL 50 MG TABLET PO (19:36)
[2023-02-05] MEDS: MIRTAZAPINE 15 MG TABLET PO (19:36)
[2023-02-05] MEDS: MELATONIN 3 MG TABLET 5 MG PO (19:36)
[2023-02-05] MEDS: DONEPEZIL 5 MG TABLET PO (19:36)
[2023-02-06] MEDS: TRAMADOL HCL 50 MG TABLET PO ×2 (03:29→19:01)
--- NOTE | 2023-02-06 04:01 | PC.NURSE ---
Resident is confuse. She doesn't know where she is, What is she doing in the facility. Staff re oriented Resident. She experienced increase urinary incontinent. She urinate in the pad already when she requested to use the bathroom and she couldn't urinate anymore upon the sitting on the toilet. Went to bathroom every hour. She refused to wear incontinent brief. Requested to use pull ups with insert liner.
[2023-02-06] MEDS: OMEPRAZOLE 20 MG CAPSULE DR PO (06:33)
[2023-02-06] MEDS: LEVOTHYROXINE 50 MCG TABLET PO (06:33)
[2023-02-06] MEDS: ACETAMINOPHEN 500 MG TABLET 1000 MG PO ×2 (07:12→23:15)
[2023-02-06] MEDS: SERTRALINE 100 MG TABLET 125 MG PO (07:13)
[2023-02-06] MEDS: ASPIRIN 81 MG TABLET EC PO (07:13)
[2023-02-06] MEDS: NON-FORMULARY MEDICATION INH (07:13)
[2023-02-06] MEDS: METOPROLOL SUCCINATE (XL) 25 MG TAB PO (07:13)
[2023-02-06] MEDS: METFORMIN ER 500 MG PO (07:13)
[2023-02-06 09:37] VITALS: BP 136/72; PULSE 68; RESP 18; TEMP 36.6; O2SAT 94
[2023-02-06] MEDS: MELATONIN 3 MG TABLET 5 MG PO (19:00)
[2023-02-06] MEDS: DONEPEZIL 5 MG TABLET PO (19:00)
[2023-02-06] MEDS: MIRTAZAPINE 15 MG TABLET PO (19:01)
[2023-02-07] MEDS: OMEPRAZOLE 20 MG CAPSULE DR PO (06:45)
[2023-02-07] MEDS: LEVOTHYROXINE 50 MCG TABLET PO (06:45)
[2023-02-07] MEDS: guaiFENesin 100 MG/ML CUP PO (07:15)
[2023-02-07] MEDS: ASPIRIN 81 MG TABLET EC PO (07:42)
[2023-02-07] MEDS: METFORMIN ER 500 MG PO (07:42)
[2023-02-07] MEDS: ACETAMINOPHEN 500 MG TABLET 1000 MG PO ×2 (07:42→23:27)
[2023-02-07] MEDS: METOPROLOL SUCCINATE (XL) 25 MG TAB PO (07:43)
[2023-02-07] MEDS: SERTRALINE 100 MG TABLET 125 MG PO (07:43)
[2023-02-07] MEDS: NON-FORMULARY MEDICATION INH (07:44)
[2023-02-07] MEDS: TRAMADOL HCL 50 MG TABLET PO (19:25)
[2023-02-07] MEDS: MIRTAZAPINE 15 MG TABLET PO (19:25)
[2023-02-07] MEDS: DONEPEZIL 5 MG TABLET PO (19:25)
[2023-02-07] MEDS: MELATONIN 3 MG TABLET 5 MG PO (19:25)
[2023-02-08] MEDS: OMEPRAZOLE 20 MG CAPSULE DR PO (07:33)
[2023-02-08] MEDS: LEVOTHYROXINE 50 MCG TABLET PO (07:34)
[2023-02-08] MEDS: ACETAMINOPHEN 500 MG TABLET 1000 MG PO ×2 (07:42→23:09)
[2023-02-08] MEDS: ASPIRIN 81 MG TABLET EC PO (07:42)
[2023-02-08] MEDS: METFORMIN ER 500 MG PO (07:43)
[2023-02-08] MEDS: METOPROLOL SUCCINATE (XL) 25 MG TAB PO (07:43)
[2023-02-08] MEDS: NON-FORMULARY MEDICATION INH (07:50)
[2023-02-08] MEDS: SERTRALINE 100 MG TABLET 125 MG PO (07:50)
[2023-02-08] MEDS: DONEPEZIL 5 MG TABLET PO (19:07)
[2023-02-08] MEDS: MELATONIN 3 MG TABLET 5 MG PO (19:07)
[2023-02-08] MEDS: MIRTAZAPINE 15 MG TABLET PO (19:07)
[2023-02-08] MEDS: TRAMADOL HCL 50 MG TABLET PO (19:07)
[2023-02-09] MEDS: LEVOTHYROXINE 50 MCG TABLET PO (06:51)
[2023-02-09] MEDS: OMEPRAZOLE 20 MG CAPSULE DR PO (06:51)
[2023-02-09] MEDS: ACETAMINOPHEN 500 MG TABLET 1000 MG PO ×2 (07:00→23:22)
[2023-02-09] MEDS: METOPROLOL SUCCINATE (XL) 25 MG TAB PO (07:19)
[2023-02-09] MEDS: ASPIRIN 81 MG TABLET EC PO (07:19)
[2023-02-09] MEDS: METFORMIN ER 500 MG PO (07:19)
[2023-02-09] MEDS: SERTRALINE 100 MG TABLET 125 MG PO (07:20)
[2023-02-09] MEDS: NON-FORMULARY MEDICATION INH (07:23)
--- NOTE | 2023-02-09 12:46 | PC.NURSE ---
Resident is refusing PRN suppository when encouraged to promote BM per protocol. Bowel sounds noted to be active in all four quadrants. Fluids encouraged. Resident was given prunes with breakfast this morning though has not yet had BM. Will update evening staff and continue to observe.
[2023-02-09] MEDS: MIRTAZAPINE 15 MG TABLET PO (19:18)
[2023-02-09] MEDS: DONEPEZIL 5 MG TABLET PO (19:18)
[2023-02-09] MEDS: TRAMADOL HCL 50 MG TABLET PO (19:18)
[2023-02-09] MEDS: MELATONIN 3 MG TABLET 5 MG PO (19:18)
[2023-02-10] MEDS: OMEPRAZOLE 20 MG CAPSULE DR PO (06:37)
[2023-02-10] MEDS: LEVOTHYROXINE 50 MCG TABLET PO (06:37)
[2023-02-10] MEDS: NON-FORMULARY MEDICATION INH (08:10)
[2023-02-10] MEDS: METFORMIN ER 500 MG PO (08:10)
[2023-02-10] MEDS: ACETAMINOPHEN 500 MG TABLET 1000 MG PO ×2 (08:10→23:56)
[2023-02-10] MEDS: SERTRALINE 100 MG TABLET 125 MG PO (08:10)
[2023-02-10] MEDS: METOPROLOL SUCCINATE (XL) 25 MG TAB PO (08:10)
[2023-02-10] MEDS: ASPIRIN 81 MG TABLET EC PO (08:10)
[2023-02-10] MEDS: TRAMADOL HCL 50 MG TABLET PO (19:23)
[2023-02-10] MEDS: DONEPEZIL 5 MG TABLET PO (19:23)
[2023-02-10] MEDS: MELATONIN 3 MG TABLET 5 MG PO (19:23)
[2023-02-10] MEDS: MIRTAZAPINE 15 MG TABLET PO (19:23)
--- NOTE | 2023-02-11 03:34 | PC.NURSE ---
WEEKLY CHARTING - WEEK 4: Vital signs reviewed- no concerns. Temporary and comprehensive care plan reviewed - no change. Behaviors documented x4 in the last month. Receives melatonin 5mg at HS, mirtazapine 15mg at HS, and sertraline 125mg daily with no noted adverse drug effects. Able to communicate needs effectively. Staff anticipate needs as well. Wears bilateral hearing aids for moderate hearing impairment. Visual deficit is corrected with glasses. Orientation is variable. Has periods of confusion and forgetfulness. All medications administered by licensed nurse. Health condition currently stable.
[2023-02-11] MEDS: ACETAMINOPHEN 500 MG TABLET 1000 MG PO ×2 (07:12→22:40)
[2023-02-11] MEDS: ASPIRIN 81 MG TABLET EC PO (07:12)
[2023-02-11] MEDS: OMEPRAZOLE 20 MG CAPSULE DR PO (07:12)
[2023-02-11] MEDS: METOPROLOL SUCCINATE (XL) 25 MG TAB PO (07:12)
[2023-02-11] MEDS: SERTRALINE 100 MG TABLET 125 MG PO (07:12)
[2023-02-11] MEDS: LEVOTHYROXINE 50 MCG TABLET PO (07:12)
[2023-02-11] MEDS: METFORMIN ER 500 MG PO (07:12)
[2023-02-11] MEDS: NON-FORMULARY MEDICATION INH (07:12)
--- NOTE | 2023-02-11 07:22 | PC.NURSE ---
Weekly Charting - Week 4: Comprehensive care plan reviewed, no changes made. Nothing added to temporary care plan. No changes noted in communication, hearing, vision or orientation. Resident does communicate needs. Staff also anticipates. Is hard of hearing, wears bilateral hearing aids. Vision impaired, corrected with glasses. Has cognitive impairment r/t dementia. Chronic health condition stable. Nurse administers all medications. Vital signs reviewed, no concerns. Mood/Behavior: Has increase episodes of agitation more so during the night. Is on Zoloft 125mg daily & 01/28 Remeron increased back to 15mg @ HS with no adverse effects noted. Continue to monitor changes in mood/behaviors.
--- NOTE | 2023-02-11 15:00 | PC.NURSE ---
Incontinent product use: resident is requested that she wear a pull up and insert daily. She stated I feel more secure like this honey when asked if she would like to try wearing cotton underwear with an insert or a wrap around. At this time care planned her preference and udpated care sheets.
[2023-02-11] MEDS: MIRTAZAPINE 15 MG TABLET PO (19:08)
[2023-02-11] MEDS: MELATONIN 3 MG TABLET 5 MG PO (19:08)
[2023-02-11] MEDS: DONEPEZIL 5 MG TABLET PO (19:08)
[2023-02-11] MEDS: TRAMADOL HCL 50 MG TABLET PO (19:08)
[2023-02-12] MEDS: NON-FORMULARY MEDICATION PO (05:05)
--- NOTE | 2023-02-12 05:48 | PC.NURSE ---
Resident c/o left arm numbness/tingling x2 during the night when getting up for toileting needs. Resident is often lays on left side/arm when sleeping. Other times when getting up for toileting, offered no complaints. Will monitor.
[2023-02-12] MEDS: OMEPRAZOLE 20 MG CAPSULE DR PO (07:02)
[2023-02-12] MEDS: LEVOTHYROXINE 50 MCG TABLET PO (07:02)
[2023-02-12] MEDS: METOPROLOL SUCCINATE (XL) 25 MG TAB PO (07:03)
[2023-02-12] MEDS: ASPIRIN 81 MG TABLET EC PO (07:03)
[2023-02-12] MEDS: METFORMIN ER 500 MG PO (07:03)
[2023-02-12] MEDS: ACETAMINOPHEN 500 MG TABLET 1000 MG PO ×2 (07:03→22:49)
[2023-02-12] MEDS: NON-FORMULARY MEDICATION INH (07:04)
[2023-02-12] MEDS: SERTRALINE 100 MG TABLET 125 MG PO (07:07)
[2023-02-12] MEDS: TRAMADOL HCL 50 MG TABLET PO (19:41)
[2023-02-12] MEDS: MELATONIN 3 MG TABLET 5 MG PO (19:41)
[2023-02-12] MEDS: DONEPEZIL 5 MG TABLET PO (19:41)
[2023-02-12] MEDS: MIRTAZAPINE 15 MG TABLET PO (19:41)
[2023-02-13] MEDS: OMEPRAZOLE 20 MG CAPSULE DR PO (07:06)
[2023-02-13] MEDS: LEVOTHYROXINE 50 MCG TABLET PO (07:06)
[2023-02-13] MEDS: METOPROLOL SUCCINATE (XL) 25 MG TAB PO (07:59)
[2023-02-13] MEDS: SERTRALINE 100 MG TABLET 125 MG PO (07:59)
[2023-02-13] MEDS: ASPIRIN 81 MG TABLET EC PO (07:59)
[2023-02-13] MEDS: ACETAMINOPHEN 500 MG TABLET 1000 MG PO ×2 (07:59→23:17)
[2023-02-13] MEDS: NON-FORMULARY MEDICATION INH (07:59)
[2023-02-13] MEDS: METFORMIN ER 500 MG PO (07:59)
[2023-02-13 10:29] VITALS: BP 126/78; PULSE 64; RESP 18; TEMP 36.6; O2SAT 94
[2023-02-13] MEDS: DONEPEZIL 5 MG TABLET PO (19:13)
[2023-02-13] MEDS: MELATONIN 3 MG TABLET 5 MG PO (19:13)
[2023-02-13] MEDS: MIRTAZAPINE 15 MG TABLET PO (19:13)
[2023-02-13] MEDS: TRAMADOL HCL 50 MG TABLET PO (19:13)
[2023-02-14] MEDS: OMEPRAZOLE 20 MG CAPSULE DR PO (06:35)
[2023-02-14] MEDS: LEVOTHYROXINE 50 MCG TABLET PO (06:36)
[2023-02-14] MEDS: NON-FORMULARY MEDICATION INH (08:44)
[2023-02-14] MEDS: ASPIRIN 81 MG TABLET EC PO (08:44)
[2023-02-14] MEDS: METFORMIN ER 500 MG PO (08:44)
[2023-02-14] MEDS: ACETAMINOPHEN 500 MG TABLET 1000 MG PO ×2 (08:44→23:10)
[2023-02-14] MEDS: SERTRALINE 100 MG TABLET 125 MG PO (08:44)
[2023-02-14] MEDS: METOPROLOL SUCCINATE (XL) 25 MG TAB PO (08:44)
[2023-02-14] MEDS: MELATONIN 3 MG TABLET 5 MG PO (19:32)
[2023-02-14] MEDS: MIRTAZAPINE 15 MG TABLET PO (19:32)
[2023-02-14] MEDS: DONEPEZIL 5 MG TABLET PO (19:32)
[2023-02-14] MEDS: TRAMADOL HCL 50 MG TABLET PO (19:32)
[2023-02-15] MEDS: LEVOTHYROXINE 50 MCG TABLET PO (06:31)
[2023-02-15] MEDS: OMEPRAZOLE 20 MG CAPSULE DR PO (06:31)
[2023-02-15] MEDS: METFORMIN ER 500 MG PO (08:12)
[2023-02-15] MEDS: ASPIRIN 81 MG TABLET EC PO (08:12)
[2023-02-15] MEDS: ACETAMINOPHEN 500 MG TABLET 1000 MG PO ×2 (08:12→23:22)
[2023-02-15] MEDS: METOPROLOL SUCCINATE (XL) 25 MG TAB PO (08:12)
[2023-02-15] MEDS: NON-FORMULARY MEDICATION INH (08:13)
[2023-02-15] MEDS: SERTRALINE 100 MG TABLET 125 MG PO (08:13)
[2023-02-15] MEDS: TRAMADOL HCL 50 MG TABLET PO (20:44)
[2023-02-15] MEDS: MIRTAZAPINE 15 MG TABLET PO (20:44)
[2023-02-15] MEDS: DONEPEZIL 5 MG TABLET PO (20:44)
[2023-02-15] MEDS: MELATONIN 3 MG TABLET 5 MG PO (20:44)
[2023-02-16] MEDS: LEVOTHYROXINE 50 MCG TABLET PO (06:27)
[2023-02-16] MEDS: OMEPRAZOLE 20 MG CAPSULE DR PO (06:27)
[2023-02-16] MEDS: ACETAMINOPHEN 500 MG TABLET 1000 MG PO ×2 (08:42→23:03)
[2023-02-16] MEDS: METOPROLOL SUCCINATE (XL) 25 MG TAB PO (08:42)
[2023-02-16] MEDS: ASPIRIN 81 MG TABLET EC PO (08:42)
[2023-02-16] MEDS: METFORMIN ER 500 MG PO (08:42)
[2023-02-16] MEDS: SERTRALINE 100 MG TABLET 125 MG PO (08:43)
[2023-02-16] MEDS: NON-FORMULARY MEDICATION INH (08:43)
--- NOTE | 2023-02-16 09:41 | PC.NURSE ---
Status: Resident has been noted to have increased anxiety ie: seeing her aunt in the room, was upset that she could not find her, staff were not able to redirect this morning
[2023-02-16] MEDS: MELATONIN 3 MG TABLET 5 MG PO (19:18)
[2023-02-16] MEDS: MIRTAZAPINE 15 MG TABLET PO (19:18)
[2023-02-16] MEDS: DONEPEZIL 5 MG TABLET PO (19:18)
[2023-02-16] MEDS: TRAMADOL HCL 50 MG TABLET PO (19:18)
[2023-02-17] MEDS: TRAMADOL HCL 50 MG TABLET PO ×2 (02:22→19:10)
--- NOTE | 2023-02-17 05:18 | PC.NURSE ---
At 0200, DARIN reported to this screenplay writer that Resident crying in the bathroom. She did self transfer, turn off alarm both bed and chair alarm. Res calling out crying due to Res an able to stand up to use the toilet. C/O of weakness and generalize pain and low back pain. Beater Boss re educated Res to use call light for help, not to self transfer, Beater Boss help Res in toilet/back to bed. Offered warm blanket and PRN tramadol 50mg given. She slept and no calling after the intervention. VSS BP 146/81, Temp 98.1, RR 18, HR 65, O2 sat 100% RA.
[2023-02-17] MEDS: OMEPRAZOLE 20 MG CAPSULE DR PO (06:23)
[2023-02-17] MEDS: LEVOTHYROXINE 50 MCG TABLET PO (06:23)
[2023-02-17] MEDS: ACETAMINOPHEN 500 MG TABLET 1000 MG PO ×2 (08:15→23:04)
[2023-02-17] MEDS: ASPIRIN 81 MG TABLET EC PO (08:15)
[2023-02-17] MEDS: NON-FORMULARY MEDICATION INH (08:16)
[2023-02-17] MEDS: METFORMIN ER 500 MG PO (08:16)
[2023-02-17] MEDS: METOPROLOL SUCCINATE (XL) 25 MG TAB PO (08:16)
[2023-02-17] MEDS: SERTRALINE 100 MG TABLET 125 MG PO (08:17)
--- NOTE | 2023-02-17 09:42 | PC.NURSE ---
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 While going to breakfast, resident stated she did not know why she thought that.
[2023-02-17] MEDS: MELATONIN 3 MG TABLET 5 MG PO (19:08)
[2023-02-17] MEDS: DONEPEZIL 5 MG TABLET PO (19:08)
[2023-02-17] MEDS: MIRTAZAPINE 15 MG TABLET PO (19:08)
--- NOTE | 2023-02-18 00:15 | PC.NURSE ---
WEEKLY CHARTING WEEK 1 Vital signs reviewed with no concerns. Comprehensive and temporary care plan reviewed with no changes made. Pain regimen. Receives Acetaminophen 1000mg TID and Ultram 50mg at HS and Ultram 50mg TID PRN. Noted occasionally used PRN Ultram that was effective. ADLs, requires staff 1 assist with bathing, dressing, able to participate grooming and able to brush teeth after set up. No changes of appetite noted. On regular diet with thin liquids. No swallowing issue.
--- NOTE | 2023-02-18 07:12 | PC.NURSE ---
Weekly Charting, Week 1 - ADL's: Comprehensive and temporary care plan reviewed. No changes made. Nothing added to temporary care plan. Resident needs extensive assist with dressing and bathing. Limited to extensive assist with grooming. Encourage resident to participate as able. Does oral cares after staff set up. Staff assist/complete as needed. Independent with feeding after set up. Is on regular diet, thin liquids. No problems with chewing/swallowing noted. Vital signs reviewed, no concerns. Pain: Has chronic pain on back managed with Tylenol 1000mg @08,& 23. 4 Tylenol noon dose was discontinued d/t resident refusal. Ultram 50mg @ HS & TID PRN. PRN Ultram used occasionally with relief. She can tell when in pain but not always and staff also anticipates.
[2023-02-18] MEDS: METFORMIN ER 500 MG PO (07:15)
[2023-02-18] MEDS: METOPROLOL SUCCINATE (XL) 25 MG TAB PO (07:15)
[2023-02-18] MEDS: ACETAMINOPHEN 500 MG TABLET 1000 MG PO ×2 (07:15→23:29)
[2023-02-18] MEDS: OMEPRAZOLE 20 MG CAPSULE DR PO (07:15)
[2023-02-18] MEDS: LEVOTHYROXINE 50 MCG TABLET PO (07:15)
[2023-02-18] MEDS: ASPIRIN 81 MG TABLET EC PO (07:15)
[2023-02-18] MEDS: SERTRALINE 100 MG TABLET 125 MG PO (07:16)
[2023-02-18] MEDS: NON-FORMULARY MEDICATION INH (07:16)
[2023-02-18] MEDS: MIRTAZAPINE 15 MG TABLET PO (19:16)
[2023-02-18] MEDS: DONEPEZIL 5 MG TABLET PO (19:16)
[2023-02-18] MEDS: MELATONIN 3 MG TABLET 5 MG PO (19:16)
[2023-02-18] MEDS: TRAMADOL HCL 50 MG TABLET PO (19:17)
[2023-02-19] MEDS: NON-FORMULARY MEDICATION PO (05:35)
[2023-02-19] MEDS: METOPROLOL SUCCINATE (XL) 25 MG TAB PO (07:15)
[2023-02-19] MEDS: ASPIRIN 81 MG TABLET EC PO (07:15)
[2023-02-19] MEDS: OMEPRAZOLE 20 MG CAPSULE DR PO (07:15)
[2023-02-19] MEDS: ACETAMINOPHEN 500 MG TABLET 1000 MG PO ×2 (07:15→23:27)
[2023-02-19] MEDS: METFORMIN ER 500 MG PO (07:15)
[2023-02-19] MEDS: NON-FORMULARY MEDICATION INH (07:15)
[2023-02-19] MEDS: LEVOTHYROXINE 50 MCG TABLET PO (07:15)
[2023-02-19] MEDS: SERTRALINE 100 MG TABLET 125 MG PO (07:16)
[2023-02-19] MEDS: MELATONIN 3 MG TABLET 5 MG PO (19:27)
[2023-02-19] MEDS: MIRTAZAPINE 15 MG TABLET PO (19:27)
[2023-02-19] MEDS: TRAMADOL HCL 50 MG TABLET PO (19:27)
[2023-02-19] MEDS: DONEPEZIL 5 MG TABLET PO (19:27)
[2023-02-20] MEDS: OMEPRAZOLE 20 MG CAPSULE DR PO (06:37)
[2023-02-20] MEDS: LEVOTHYROXINE 50 MCG TABLET PO (06:37)
[2023-02-20] MEDS: METFORMIN ER 500 MG PO (08:38)
[2023-02-20] MEDS: ACETAMINOPHEN 500 MG TABLET 1000 MG PO ×2 (08:38→23:07)
[2023-02-20] MEDS: METOPROLOL SUCCINATE (XL) 25 MG TAB PO (08:38)
[2023-02-20] MEDS: ASPIRIN 81 MG TABLET EC PO (08:38)
[2023-02-20] MEDS: NON-FORMULARY MEDICATION INH (08:39)
[2023-02-20] MEDS: SERTRALINE 100 MG TABLET 125 MG PO (08:39)
[2023-02-20 09:34] VITALS: BP 145/85; PULSE 62; RESP 18; TEMP 36.6; O2SAT 92
--- NOTE | 2023-02-20 09:36 | PC.NURSE ---
Status: Resident stated that her head was spinning this morning and that she was still asleep
--- NOTE | 2023-02-20 09:55 | PC.NURSE ---
Status/Order: EXTRUSION TECHNICIAN, Ant here. Updated of resident increase agitation, confusion and hallucination. Check CBC 5/5.
--- NOTE | 2023-02-20 10:39 | PC.SPIRITC ---
I provided visit for connection.
[2023-02-20] MEDS: TRAMADOL HCL 50 MG TABLET PO (19:18)
[2023-02-20] MEDS: MIRTAZAPINE 15 MG TABLET PO (19:18)
[2023-02-20] MEDS: MELATONIN 3 MG TABLET 5 MG PO (19:18)
[2023-02-20] MEDS: DONEPEZIL 5 MG TABLET PO (19:18)
[2023-02-21] MEDS: LEVOTHYROXINE 50 MCG TABLET PO (06:53)
[2023-02-21] MEDS: OMEPRAZOLE 20 MG CAPSULE DR PO (06:53)
[2023-02-21] MEDS: NON-FORMULARY MEDICATION INH (07:20)
[2023-02-21] MEDS: METOPROLOL SUCCINATE (XL) 25 MG TAB PO (07:20)
[2023-02-21] MEDS: SERTRALINE 100 MG TABLET 125 MG PO (07:20)
[2023-02-21] MEDS: ASPIRIN 81 MG TABLET EC PO (07:20)
[2023-02-21] MEDS: METFORMIN ER 500 MG PO (07:20)
[2023-02-21] MEDS: ACETAMINOPHEN 500 MG TABLET 1000 MG PO ×2 (07:20→23:25)
[2023-02-21 09:23] LABS: Basophils Percent Auto 0.8 % (0.0-3.0); Eosinophils Percent Auto 6.2 % (0.0-7.0); Hematocrit 41.4 % (33.0-51.0); Hemoglobin* 12.6 gm/dL (12.0-16.0); Lymphocytes Percent Auto 45.1 % (20-44); Mean Corpuscular HGB Conc 30 gm/dL (32-36); Mean Corpuscular Hemoglobin 29 pg (26-34); Mean Corpuscular Volume 94 fL (80-100); Monocytes Percent Auto 11.9 % (0.0-11.0); Platelet Count* 193 K/uL (140-440); RDW Coefficient of Variation % 14.8 % (11.5-15.5); Red Blood Count 4.42 m/uL (4.00-5.20)
[2023-02-21 09:43] LABS: Chloride* 104 mmol/L (96-114); Potassium* 4.6 mmol/L (3.6-5.1); Sodium* 139 mmol/L (135-149)
[2023-02-21 09:46] LABS: Blood Urea Nitrogen* 20 mg/dL (7-30); Carbon Dioxide* 26 mmol/L (20-32); Est. Creatinine Clearance* 34.91; Estimated Glomerular Filt Rate 55 ml/min
[2023-02-21 09:47] LABS: Calcium* 9.1 mg/dL (8.4-10.6); Glucose* 166 mg/dL (60-115)
[2023-02-21 09:49] LABS: Hemoglobin A1C* 5.74 % (0-5.6)
[2023-02-21 09:58] LABS: Slide Review Reflex No
--- NOTE | 2023-02-21 13:19 | PC.NURSE ---
CBC, BMP, A1C results reviewed by Dr. Pierce. No new order.
[2023-02-21] MEDS: MELATONIN 3 MG TABLET 5 MG PO (19:36)
[2023-02-21] MEDS: DONEPEZIL 5 MG TABLET PO (19:36)
[2023-02-21] MEDS: MIRTAZAPINE 15 MG TABLET PO (19:36)
[2023-02-21] MEDS: TRAMADOL HCL 50 MG TABLET PO (19:36)
[2023-02-22] MEDS: OMEPRAZOLE 20 MG CAPSULE DR PO (07:54)
[2023-02-22] MEDS: LEVOTHYROXINE 50 MCG TABLET PO (07:54)
[2023-02-22] MEDS: ACETAMINOPHEN 500 MG TABLET 1000 MG PO ×2 (08:09→22:35)
[2023-02-22] MEDS: METFORMIN ER 500 MG PO (08:09)
[2023-02-22] MEDS: ASPIRIN 81 MG TABLET EC PO (08:10)
[2023-02-22] MEDS: METOPROLOL SUCCINATE (XL) 25 MG TAB PO (08:10)
[2023-02-22] MEDS: SERTRALINE 100 MG TABLET 125 MG PO (08:10)
[2023-02-22] MEDS: NON-FORMULARY MEDICATION INH (08:11)
[2023-02-22] MEDS: DONEPEZIL 5 MG TABLET PO (19:24)
[2023-02-22] MEDS: MIRTAZAPINE 15 MG TABLET PO (19:24)
[2023-02-22] MEDS: MELATONIN 3 MG TABLET 5 MG PO (19:24)
[2023-02-22] MEDS: TRAMADOL HCL 50 MG TABLET PO (19:24)
[2023-02-23] MEDS: METOPROLOL SUCCINATE (XL) 25 MG TAB PO (07:16)
[2023-02-23] MEDS: OMEPRAZOLE 20 MG CAPSULE DR PO (07:16)
[2023-02-23] MEDS: METFORMIN ER 500 MG PO (07:16)
[2023-02-23] MEDS: LEVOTHYROXINE 50 MCG TABLET PO (07:16)
[2023-02-23] MEDS: ACETAMINOPHEN 500 MG TABLET 1000 MG PO ×2 (07:16→23:15)
[2023-02-23] MEDS: ASPIRIN 81 MG TABLET EC PO (07:16)
[2023-02-23] MEDS: SERTRALINE 100 MG TABLET 125 MG PO (07:17)
[2023-02-23] MEDS: NON-FORMULARY MEDICATION INH (07:17)
--- NOTE | 2023-02-23 09:05 | PC.NURSE ---
Behavior note: Resident noted to be irritable upon rising and with AM cares this morning questioning why she needs staff assistance with cares. Staff had to strongly encourage resident to allow them to change incontinent liner for her as it was noted to be wet otherwise resident was resistive to having product changed. Reapproaching performed which was effective for short amount of time.
[2023-02-23] MEDS: DONEPEZIL 5 MG TABLET PO (19:05)
[2023-02-23] MEDS: TRAMADOL HCL 50 MG TABLET PO (19:05)
[2023-02-23] MEDS: MELATONIN 3 MG TABLET 5 MG PO (19:05)
[2023-02-23] MEDS: MIRTAZAPINE 15 MG TABLET PO (19:05)
[2023-02-24] MEDS: LEVOTHYROXINE 50 MCG TABLET PO (06:34)
[2023-02-24] MEDS: OMEPRAZOLE 20 MG CAPSULE DR PO (06:34)
[2023-02-24] MEDS: METFORMIN ER 500 MG PO (08:36)
[2023-02-24] MEDS: NON-FORMULARY MEDICATION INH (08:36)
[2023-02-24] MEDS: METOPROLOL SUCCINATE (XL) 25 MG TAB PO (08:36)
[2023-02-24] MEDS: ACETAMINOPHEN 500 MG TABLET 1000 MG PO ×2 (08:36→22:56)
[2023-02-24] MEDS: SERTRALINE 100 MG TABLET 125 MG PO (08:36)
[2023-02-24] MEDS: ASPIRIN 81 MG TABLET EC PO (08:36)
[2023-02-24] MEDS: DONEPEZIL 5 MG TABLET PO (19:21)
[2023-02-24] MEDS: TRAMADOL HCL 50 MG TABLET PO (19:21)
[2023-02-24] MEDS: MIRTAZAPINE 15 MG TABLET PO (19:21)
[2023-02-24] MEDS: MELATONIN 3 MG TABLET 5 MG PO (19:21)
--- NOTE | 2023-02-25 01:01 | PC.NURSE ---
WEEKLY CHARTING - WEEK 2: Vital signs reviewed - no concerns. Temporary and comprehensive care plan reviewed - no change. Assist of 1 with gait belt for transfers and ambulation with 4WW. Will often self-transfer. Independent with bed mobility with cueing from staff. Left 1/4 side rail up at all times as an enabler for independent bed mobility. Able to propel w/c independently, staff assist for distance/destination. Per last fall risk assessment, resident is at high risk for falls. Current fall interventions include: call light in reach, anticipate needs, Q 30-minute safety checks, non-slip footwear, w/c next to bed with brakes locked, falling star magnet, bed in lowest position with brakes locked, bed and chair alarm in place and active.?
[2023-02-25] MEDS: LEVOTHYROXINE 50 MCG TABLET PO (06:48)
[2023-02-25] MEDS: OMEPRAZOLE 20 MG CAPSULE DR PO (06:48)
[2023-02-25] MEDS: ACETAMINOPHEN 500 MG TABLET 1000 MG PO ×2 (07:09→22:55)
[2023-02-25] MEDS: ASPIRIN 81 MG TABLET EC PO (07:09)
[2023-02-25] MEDS: METFORMIN ER 500 MG PO (07:09)
[2023-02-25] MEDS: METOPROLOL SUCCINATE (XL) 25 MG TAB PO (07:10)
[2023-02-25] MEDS: SERTRALINE 100 MG TABLET 125 MG PO (07:10)
[2023-02-25] MEDS: NON-FORMULARY MEDICATION INH (07:10)
--- NOTE | 2023-02-25 07:12 | PC.NURSE ---
Weekly Charting, Week 2 - Mobility: Comprehensive and temporary care plan reviewed. No changes made, nothing added to temporary care plan. Resident needs one assist, gait belt, 4wwalker with transfers and ambulation. Will often self transfers. Is able to self propel. Staff assist to longer distances and destinations. Needs assist with turning and positioning.? (L) 1/4 side rail up at all times as an enabler for bed mobility. Has a bed/chair alarm. Vital signs reviewed, no concerns. Fall: No falls the past month. Remains a high fall risk according to assessment done on 01/14/23. Fall interventions: Call light within reach, bed in low position with brakes locked, bed/chair alarm, non skid footwear, not to be left alone in bathroom, falling star magnet, w/c locked at bedside.
[2023-02-25] MEDS: MIRTAZAPINE 15 MG TABLET PO (19:10)
[2023-02-25] MEDS: TRAMADOL HCL 50 MG TABLET PO (19:10)
[2023-02-25] MEDS: MELATONIN 3 MG TABLET 5 MG PO (19:10)
[2023-02-25] MEDS: DONEPEZIL 5 MG TABLET PO (19:10)
[2023-02-26] MEDS: NON-FORMULARY MEDICATION PO (05:17)
[2023-02-26] MEDS: LEVOTHYROXINE 50 MCG TABLET PO (06:42)
[2023-02-26] MEDS: OMEPRAZOLE 20 MG CAPSULE DR PO (06:42)
[2023-02-26] MEDS: ACETAMINOPHEN 500 MG TABLET 1000 MG PO ×2 (07:42→23:23)
[2023-02-26] MEDS: ASPIRIN 81 MG TABLET EC PO (07:45)
[2023-02-26] MEDS: METFORMIN ER 500 MG PO (07:45)
[2023-02-26] MEDS: METOPROLOL SUCCINATE (XL) 25 MG TAB PO (07:46)
[2023-02-26] MEDS: NON-FORMULARY MEDICATION INH (07:47)
[2023-02-26] MEDS: SERTRALINE 100 MG TABLET 125 MG PO (07:47)
--- NOTE | 2023-02-26 16:11 | PC.SPIRITC ---
Late Entry from February 25, 2023: Amberly expressed confusion and concern at breakfast time. I provided visit for support and redirection.
--- NOTE | 2023-02-26 16:12 | PC.SPIRITC ---
Amberly talked about what she would do in the spring when she was younger. I provided visit for support and time to share memories.
[2023-02-26] MEDS: MELATONIN 3 MG TABLET 5 MG PO (19:21)
[2023-02-26] MEDS: DONEPEZIL 5 MG TABLET PO (19:21)
[2023-02-26] MEDS: MIRTAZAPINE 15 MG TABLET PO (19:21)
[2023-02-26] MEDS: TRAMADOL HCL 50 MG TABLET PO (19:21)
[2023-02-27] MEDS: LEVOTHYROXINE 50 MCG TABLET PO (06:57)
[2023-02-27] MEDS: OMEPRAZOLE 20 MG CAPSULE DR PO (06:57)
[2023-02-27] MEDS: SERTRALINE 100 MG TABLET 125 MG PO (07:34)
[2023-02-27] MEDS: NON-FORMULARY MEDICATION INH (07:34)
[2023-02-27] MEDS: ACETAMINOPHEN 500 MG TABLET 1000 MG PO ×2 (07:34→23:43)
[2023-02-27] MEDS: ASPIRIN 81 MG TABLET EC PO (07:34)
[2023-02-27] MEDS: METOPROLOL SUCCINATE (XL) 25 MG TAB PO (07:34)
[2023-02-27] MEDS: METFORMIN ER 500 MG PO (07:34)
[2023-02-27 10:24] VITALS: BP 114/60; PULSE 63; RESP 18; TEMP 36.4; O2SAT 96
[2023-02-27] MEDS: NYSTATIN CREAM 30 GM 1 APPLIC TOPICAL (11:20)
[2023-02-27] MEDS: MELATONIN 3 MG TABLET 5 MG PO (19:12)
[2023-02-27] MEDS: TRAMADOL HCL 50 MG TABLET PO (19:13)
[2023-02-27] MEDS: DONEPEZIL 5 MG TABLET PO (19:13)
[2023-02-27] MEDS: MIRTAZAPINE 15 MG TABLET PO (19:13)
[2023-02-28] MEDS: LEVOTHYROXINE 50 MCG TABLET PO (06:41)
[2023-02-28] MEDS: OMEPRAZOLE 20 MG CAPSULE DR PO (06:41)
[2023-02-28] MEDS: NYSTATIN CREAM 30 GM 1 APPLIC TOPICAL (07:21)
[2023-02-28] MEDS: SERTRALINE 100 MG TABLET 125 MG PO (08:53)
[2023-02-28] MEDS: NON-FORMULARY MEDICATION INH (08:53)
[2023-02-28] MEDS: ACETAMINOPHEN 500 MG TABLET 1000 MG PO ×2 (08:53→23:10)
[2023-02-28] MEDS: ASPIRIN 81 MG TABLET EC PO (08:53)
[2023-02-28] MEDS: METOPROLOL SUCCINATE (XL) 25 MG TAB PO (08:53)
[2023-02-28] MEDS: METFORMIN ER 500 MG PO (08:53)
[2023-02-28] MEDS: TRAMADOL HCL 50 MG TABLET PO (19:21)
[2023-02-28] MEDS: MELATONIN 3 MG TABLET 5 MG PO (19:21)
[2023-02-28] MEDS: DONEPEZIL 5 MG TABLET PO (19:21)
[2023-02-28] MEDS: MIRTAZAPINE 15 MG TABLET PO (19:21)
[2023-03-01] MEDS: OMEPRAZOLE 20 MG CAPSULE DR PO (06:32)
[2023-03-01] MEDS: LEVOTHYROXINE 50 MCG TABLET PO (06:32)
[2023-03-01] MEDS: NYSTATIN CREAM 30 GM 1 APPLIC TOPICAL ×2 (06:45→19:48)
[2023-03-01] MEDS: SERTRALINE 100 MG TABLET 125 MG PO (08:43)
[2023-03-01] MEDS: ACETAMINOPHEN 500 MG TABLET 1000 MG PO ×2 (08:43→23:00)
[2023-03-01] MEDS: METOPROLOL SUCCINATE (XL) 25 MG TAB PO (08:43)
[2023-03-01] MEDS: NON-FORMULARY MEDICATION INH (08:43)
[2023-03-01] MEDS: ASPIRIN 81 MG TABLET EC PO (08:43)
[2023-03-01] MEDS: METFORMIN ER 500 MG PO (08:43)
[2023-03-01] MEDS: DONEPEZIL 5 MG TABLET PO (19:47)
[2023-03-01] MEDS: MELATONIN 3 MG TABLET 5 MG PO (19:47)
[2023-03-01] MEDS: MIRTAZAPINE 15 MG TABLET PO (19:48)
[2023-03-01] MEDS: TRAMADOL HCL 50 MG TABLET PO (19:48)
[2023-03-02] MEDS: LEVOTHYROXINE 50 MCG TABLET PO (06:45)
[2023-03-02] MEDS: OMEPRAZOLE 20 MG CAPSULE DR PO (06:45)
[2023-03-02] MEDS: NYSTATIN CREAM 30 GM 1 APPLIC TOPICAL ×2 (07:10→22:13)
[2023-03-02] MEDS: ASPIRIN 81 MG TABLET EC PO (08:38)
[2023-03-02] MEDS: METFORMIN ER 500 MG PO (08:38)
[2023-03-02] MEDS: METOPROLOL SUCCINATE (XL) 25 MG TAB PO (08:38)
[2023-03-02] MEDS: ACETAMINOPHEN 500 MG TABLET 1000 MG PO ×2 (08:38→23:25)
[2023-03-02] MEDS: NON-FORMULARY MEDICATION INH (08:39)
[2023-03-02] MEDS: SERTRALINE 100 MG TABLET 125 MG PO (08:39)
[2023-03-02] MEDS: DONEPEZIL 5 MG TABLET PO (19:42)
[2023-03-02] MEDS: MIRTAZAPINE 15 MG TABLET PO (19:42)
[2023-03-02] MEDS: TRAMADOL HCL 50 MG TABLET PO (19:42)
[2023-03-02] MEDS: MELATONIN 3 MG TABLET 5 MG PO (19:42)
[2023-03-03] MEDS: LEVOTHYROXINE 50 MCG TABLET PO (06:34)
[2023-03-03] MEDS: OMEPRAZOLE 20 MG CAPSULE DR PO (06:34)
[2023-03-03] MEDS: NYSTATIN CREAM 30 GM 1 APPLIC TOPICAL (07:15)
[2023-03-03] MEDS: ASPIRIN 81 MG TABLET EC PO (08:37)
[2023-03-03] MEDS: ACETAMINOPHEN 500 MG TABLET 1000 MG PO ×2 (08:37→23:16)
[2023-03-03] MEDS: NON-FORMULARY MEDICATION INH (08:37)
[2023-03-03] MEDS: SERTRALINE 100 MG TABLET 125 MG PO (08:37)
[2023-03-03] MEDS: METOPROLOL SUCCINATE (XL) 25 MG TAB PO (08:37)
[2023-03-03] MEDS: METFORMIN ER 500 MG PO (08:37)
--- NOTE | 2023-03-03 12:16 | PC.NURSE ---
Status: Resident had been outside then came to room shaking and dry heaving. Resident was noted to be hyperventilating and shaking. Vitals taken and were: B/P 112/72, T97.4, P62, R 24 O2 82% so O2 started per NC started with O2 sats going up to 99% so O2 stopped. Resident stated she was cold so 4 blankets put on resident. Resident is in bed with head elevated and resting. Daughter updated.
--- NOTE | 2023-03-03 12:56 | PC.NURSE ---
Status: Resident is very much calmer now, is resting in bed. O2 92% on room air. Will update daughter and leave a note for CHAIN FORMING MACHINE OPERATOR
[2023-03-03] MEDS: TRAMADOL HCL 50 MG TABLET PO (19:15)
[2023-03-03] MEDS: MIRTAZAPINE 15 MG TABLET PO (19:15)
[2023-03-03] MEDS: DONEPEZIL 5 MG TABLET PO (19:15)
[2023-03-03] MEDS: MELATONIN 3 MG TABLET 5 MG PO (19:15)
--- NOTE | 2023-03-04 03:57 | PC.NURSE ---
WEEKLY CHARTING WEEK 3 TOILETING AND SKIN Review vital signs, no concerns.? Resident`s comprehensive and temporary care plan reviewed with no new changes. Resident continues to have occasional episode of incontinence of bowel and bladder. She requires one assist with toileting and pericares. She wears medium size pull-ups and incontinent pads and dressing. At night , she is checked for assist to toilet, or she will set the alarm by trying to go by herself. Skin:? Resident does not have any skin issue currently and gets her skin check on bath day. Resident is reposition every 2 hours to prevent pressure sore.
[2023-03-04] MEDS: guaiFENesin 100 MG/ML CUP PO ×2 (04:47→20:15)
--- NOTE | 2023-03-04 04:59 | PC.NURSE ---
Cough Resident woke up with cough. She was coughing till she sat at the edge of the bed. Cough syrup was administrated. Temperature was 98.8. She is getting some relief, will monitor.
[2023-03-04] MEDS: LEVOTHYROXINE 50 MCG TABLET PO (07:30)
[2023-03-04] MEDS: OMEPRAZOLE 20 MG CAPSULE DR PO (07:30)
[2023-03-04] MEDS: ASPIRIN 81 MG TABLET EC PO (07:31)
[2023-03-04] MEDS: METFORMIN ER 500 MG PO (07:31)
[2023-03-04] MEDS: NON-FORMULARY MEDICATION INH (07:31)
[2023-03-04] MEDS: METOPROLOL SUCCINATE (XL) 25 MG TAB PO (07:31)
[2023-03-04] MEDS: ACETAMINOPHEN 500 MG TABLET 1000 MG PO ×2 (07:31→23:28)
[2023-03-04] MEDS: SERTRALINE 100 MG TABLET 125 MG PO (07:32)
[2023-03-04] MEDS: NYSTATIN CREAM 30 GM 1 APPLIC TOPICAL (07:45)
--- NOTE | 2023-03-04 08:26 | PC.NURSE ---
Weekly Charting, Week 3-Toileting: Comprehensive and temporary care plan reviewed. No changes made. Nothing added to temporary care plan. Resident needs one assist with toileting. Is frequently incontinent of urine, has occasional bowel incontinence. Staff to check every 2 hours and assist as needed.Resident will also put the call light when ready to use the toilet. Ambulates to the bathroom using the walker and gait belt. At times? will also toilet self. Wears pull ups with inserts per request & comfort. Pads, farhan cares, clothing managed by staff. Vital signs reviewed, no concerns. Skin: No issues at this time. Skin is checked during cares and on bath day.
--- NOTE | 2023-03-04 09:27 | PC.NURSE ---
Behavior note: Resident noted to be confused with AM cares repeatedly asking staff, How long have I been here? and stating, I thought I just arrived today. Resident has not been resistive or irritable so far this shift though remains confused and needs staff redirection due to ongoing confusion.
--- NOTE | 2023-03-04 11:48 | PC.SPIRITC ---
Amberly talked about memories of her grandparents, I provided time reminisce and reflect.
--- NOTE | 2023-03-04 12:34 | PC.NURSE ---
Status of 5/15 resident had anxiety attack, used 02 for sats 82% then up to 99% noted by EFFICIENCY EXPERT. Continue to monitor.
[2023-03-04] MEDS: DONEPEZIL 5 MG TABLET PO (19:12)
[2023-03-04] MEDS: MELATONIN 3 MG TABLET 5 MG PO (19:13)
[2023-03-04] MEDS: MIRTAZAPINE 15 MG TABLET PO (19:19)
[2023-03-04] MEDS: TRAMADOL HCL 50 MG TABLET PO (19:19)
[2023-03-05] MEDS: guaiFENesin 100 MG/ML CUP PO ×4 (02:52→21:18)
[2023-03-05] MEDS: TRAMADOL HCL 50 MG TABLET PO ×2 (02:53→19:18)
[2023-03-05] MEDS: NON-FORMULARY MEDICATION PO (06:53)
[2023-03-05] MEDS: LEVOTHYROXINE 50 MCG TABLET PO (06:53)
[2023-03-05] MEDS: OMEPRAZOLE 20 MG CAPSULE DR PO (06:53)
[2023-03-05] MEDS: METFORMIN ER 500 MG PO (08:19)
[2023-03-05] MEDS: ASPIRIN 81 MG TABLET EC PO (08:19)
[2023-03-05] MEDS: ACETAMINOPHEN 500 MG TABLET 1000 MG PO ×2 (08:19→23:20)
[2023-03-05] MEDS: METOPROLOL SUCCINATE (XL) 25 MG TAB PO (08:20)
[2023-03-05] MEDS: SERTRALINE 100 MG TABLET 125 MG PO (08:20)
[2023-03-05] MEDS: NON-FORMULARY MEDICATION INH (08:20)
--- NOTE | 2023-03-05 11:46 | PC.NURSE ---
Health status note: Resident noted to have nonproductive cough this morning and ate breakfast in room. Lung sounds noted to be clear to all lobes bilaterally. Resident denied headache when asked. PRN Charissa-tussin administered which was effective upon followup. Warm saltwater rinses encouraged and performed to reduce throat irritation due to dry cough. VS: B/P 104/67. P 86, R 20, T 98.3, O2 sat 91% on RA. storekeeper steward and DON aware. Nursing to continue to observe.
--- NOTE | 2023-03-05 12:36 | PC.NURSE ---
Covid swab test done and sent to lab. Resident will be notified of result.
[2023-03-05 14:01] LABS: SARS PCR* Negative SARS-CoV-2 (Negative)
[2023-03-05] MEDS: MIRTAZAPINE 15 MG TABLET PO (19:18)
[2023-03-05] MEDS: DONEPEZIL 5 MG TABLET PO (19:18)
[2023-03-05] MEDS: MELATONIN 3 MG TABLET 5 MG PO (19:18)
[2023-03-06] MEDS: TRAMADOL HCL 50 MG TABLET PO ×2 (03:23→19:01)
[2023-03-06] MEDS: guaiFENesin 100 MG/ML CUP PO ×3 (03:23→13:08)
[2023-03-06] MEDS: OMEPRAZOLE 20 MG CAPSULE DR PO (06:45)
[2023-03-06] MEDS: LEVOTHYROXINE 50 MCG TABLET PO (06:46)
[2023-03-06] MEDS: METFORMIN ER 500 MG PO (08:36)
[2023-03-06] MEDS: METOPROLOL SUCCINATE (XL) 25 MG TAB PO (08:36)
[2023-03-06] MEDS: NON-FORMULARY MEDICATION INH (08:36)
[2023-03-06] MEDS: ASPIRIN 81 MG TABLET EC PO (08:36)
[2023-03-06] MEDS: SERTRALINE 100 MG TABLET 125 MG PO (08:36)
[2023-03-06] MEDS: ACETAMINOPHEN 500 MG TABLET 1000 MG PO ×2 (08:36→23:05)
--- NOTE | 2023-03-06 09:36 | CRLHL7_ITS ---
For Patients: As a result of the Cures Act, medical imaging exams and procedure reports are released immediately into your electronic medical record. You may view this report before your referring provider. If you have questions, please contact your health care provider. INDICATION: nonproductive cough, history of COPD TECHNIQUE: Chest 1 view COMPARISON: 10/23/2022, 01/14/2020 FINDINGS: Chronic changes to the right hemithorax. Stable appearance of the mediastinum. No acute findings. IMPRESSION: No acute findings. Dictated by Nakul Chambers MD @ 03/06/2023 10:54:00 AM (Electronically Signed)
[2023-03-06 09:44] VITALS: BP 128/70; PULSE 78; RESP 18; TEMP 36.6; O2SAT 94
--- NOTE | 2023-03-06 10:11 | PC.NURSE ---
Status/Order: UMBRELLA FRAME MAKER, Ant here. Updated resident increase non productive cough, sore throat, Covid swab negative. Chest X-Ray ordered. Daughter here also updated of status and order.
--- NOTE | 2023-03-06 10:15 | PC.NURSE ---
Status: Resident continues with cough with prn cough syrup being somewhat effective. Vitals: B/P 128/70, P78, R18, T97.8, O2 94% on room air. BANK BOSS here and ordered chest xray
--- NOTE | 2023-03-06 11:22 | PC.NURSE ---
Chest X-Ray result reviewed by EDUCATION PROGRAM SPECIALISTAnt. No acute findings. Order: Guiafenessin 600 mg BID X 10 days. Status/Order: EDUCATION PROGRAM SPECIALIST updated of increase confusion and agitation past days that was hard to redirect. Order: Increase Zoloft 125 mg to 150 mg daily.
--- NOTE | 2023-03-06 12:28 | PC.NURSE ---
Family Update: Daughter, Alison updated of CXR result no acute findings. Guiafenessin 600mg ordered. Also updated increase Zoloft 125 t0 150mg daily d/t intermittent increase confusion & agitation. She is okay with orders.
[2023-03-06] MEDS: guaiFENesin 600 MG TAB.ER.12H PO (18:59)
[2023-03-06] MEDS: MELATONIN 3 MG TABLET 5 MG PO (19:01)
[2023-03-06] MEDS: MIRTAZAPINE 15 MG TABLET PO (19:01)
[2023-03-06] MEDS: DONEPEZIL 5 MG TABLET PO (19:01)
[2023-03-06] MEDS: NYSTATIN CREAM 30 GM 1 APPLIC TOPICAL (19:39)
[2023-03-07] MEDS: guaiFENesin 100 MG/ML CUP PO ×2 (06:45→19:07)
[2023-03-07] MEDS: METFORMIN ER 500 MG PO (07:03)
[2023-03-07] MEDS: ACETAMINOPHEN 500 MG TABLET 1000 MG PO ×2 (07:03→23:58)
[2023-03-07] MEDS: guaiFENesin 600 MG TAB.ER.12H PO ×2 (07:03→15:48)
[2023-03-07] MEDS: NON-FORMULARY MEDICATION INH (07:03)
[2023-03-07] MEDS: LEVOTHYROXINE 50 MCG TABLET PO (07:03)
[2023-03-07] MEDS: OMEPRAZOLE 20 MG CAPSULE DR PO (07:03)
[2023-03-07] MEDS: ASPIRIN 81 MG TABLET EC PO (07:03)
[2023-03-07] MEDS: METOPROLOL SUCCINATE (XL) 25 MG TAB PO (07:03)
[2023-03-07] MEDS: SERTRALINE 100 MG TABLET 150 MG PO (07:04)
--- NOTE | 2023-03-07 14:09 | PC.NURSE ---
Amberly had a coughing episode in the morning for about 1/2 hour. She was given PRN dose of cough syrup Charissa tussin at 0645 with good results. Denies any pain
[2023-03-07] MEDS: MELATONIN 3 MG TABLET 5 MG PO (19:06)
[2023-03-07] MEDS: DONEPEZIL 5 MG TABLET PO (19:06)
[2023-03-07] MEDS: TRAMADOL HCL 50 MG TABLET PO (19:07)
[2023-03-07] MEDS: MIRTAZAPINE 15 MG TABLET PO (19:07)
--- NOTE | 2023-03-07 20:52 | PC.NURSE ---
Cough: Resident continue to have episode of non productive cough with hoarse voice , resting in bed st this time with HOB elevated, no SOB noted, PRN Tussin 5 ml given x 1, also drainage and redness noted to left eye, Resident denies any pain to the eye library acquisitions technician SUPERVISOR ELECTROLYTIC TINNING called and updated and order gotten for erythromycin ointment 1 ribbon to both eyes x 5 days.
[2023-03-08] MEDS: guaiFENesin 100 MG/ML CUP PO ×3 (01:50→19:10)
[2023-03-08] MEDS: OMEPRAZOLE 20 MG CAPSULE DR PO (07:37)
[2023-03-08] MEDS: ACETAMINOPHEN 500 MG TABLET 1000 MG PO ×2 (07:38→22:21)
[2023-03-08] MEDS: METFORMIN ER 500 MG PO (07:38)
[2023-03-08] MEDS: METOPROLOL SUCCINATE (XL) 25 MG TAB PO (07:38)
[2023-03-08] MEDS: guaiFENesin 600 MG TAB.ER.12H PO ×2 (07:38→15:31)
[2023-03-08] MEDS: ASPIRIN 81 MG TABLET EC PO (07:38)
[2023-03-08] MEDS: LEVOTHYROXINE 50 MCG TABLET PO (07:38)
[2023-03-08] MEDS: SERTRALINE 100 MG TABLET 150 MG PO (07:39)
[2023-03-08] MEDS: NON-FORMULARY MEDICATION INH (07:39)
--- NOTE | 2023-03-08 09:35 | PC.NURSE ---
Family update: Daughter Alison Pryor was updated regarding resident's new order for Erythromycin eye ointment at this time. Apprentice Funeral Director will call [facility] when they open this afternoon to ensure supply will be sent out.
--- NOTE | 2023-03-08 09:46 | PC.NURSE ---
Behavior note: While sign writer hand was updating daughter Alison Pryor regarding resident's new order for Erythromycin eye ointment this morning resident started talking about some mean looking kids that came by here a couple of days ago. They tried to look at my eyes and in my ears. They looked rough so I told them to get out of here. They weren't even medical staff. Daughter Alison Pryor was also present for this conversation. Resident could not recall what time of day she believed this to have happened and then went on to say, I'm not even sure it actually happened. Sometimes I dream stuff you know. Optics Manufacturing Technician also brought up to resident that she has had viral cold symptoms so a medicall staff may have needed to look in eyes and ears to assess. Resident has no open areas or areas of bruising currently observed. Left eye noted to be slightly reddened today with no drainage observed. Resident went on to say, The people here are all good and I'm doing just fine. Daughter mentioned to resident that she appears tired and resident being offered to rest in bed before lunch.
--- NOTE | 2023-03-08 13:41 | PC.NURSE ---
Behavior followup note: Shift Stacker spoke with daughter Alison Pryor in private area away from resident regarding resident's continued increased cognitive impairment and her comments reported to movie writer this morning about seeing mean kids come to her room a couple of days ago. Daughter also notes resident's cognitive impairment seems to be advancing as resident has recently asked daughter about relatives who are no longer living, including resident's aunt and grandma. Shift Stacker informed daughter that nursing staff will continue to observe for any comments resident makes and update daughter PRN. Shift Stacker and daughter also discussed recent med changes including Zoloft being increased and resident starting on antibiotic eye ointment this evening after medication received. Daughter thanked movie writer after conversation.
--- NOTE | 2023-03-08 13:46 | PC.NURSE ---
Pharmacy note: Vice President called [facility] at this time to ensure resident's supply of antibiotic eye ointment will be sent out this evening. Vice President was informed that medication is scheduled to be delivered this evening.
[2023-03-08] MEDS: TRAMADOL HCL 50 MG TABLET PO ×2 (15:31→19:10)
[2023-03-08] MEDS: ERYTHROMYCIN OPHTH OINT 3.5 GM 1 APPLIC EYE-BOTH (18:46)
[2023-03-08] MEDS: MELATONIN 3 MG TABLET 5 MG PO (19:09)
[2023-03-08] MEDS: DONEPEZIL 5 MG TABLET PO (19:09)
[2023-03-08] MEDS: MIRTAZAPINE 15 MG TABLET PO (19:09)
[2023-03-09] MEDS: OMEPRAZOLE 20 MG CAPSULE DR PO (07:57)
[2023-03-09] MEDS: LEVOTHYROXINE 50 MCG TABLET PO (07:57)
[2023-03-09] MEDS: ERYTHROMYCIN OPHTH OINT 3.5 GM 1 APPLIC EYE-BOTH ×2 (08:00→15:06)
[2023-03-09] MEDS: ACETAMINOPHEN 500 MG TABLET 1000 MG PO ×2 (08:20→23:18)
[2023-03-09] MEDS: METOPROLOL SUCCINATE (XL) 25 MG TAB PO (08:20)
[2023-03-09] MEDS: METFORMIN ER 500 MG PO (08:20)
[2023-03-09] MEDS: guaiFENesin 600 MG TAB.ER.12H PO ×2 (08:20→15:06)
[2023-03-09] MEDS: ASPIRIN 81 MG TABLET EC PO (08:20)
[2023-03-09] MEDS: NON-FORMULARY MEDICATION INH (08:21)
[2023-03-09] MEDS: SERTRALINE 100 MG TABLET 150 MG PO (08:21)
[2023-03-09] MEDS: guaiFENesin 100 MG/ML CUP PO (08:29)
--- NOTE | 2023-03-09 10:44 | PC.NURSE ---
Behavior note: Resident has had some behaviors noted so far this shift including chanting/repeating statements such as, Just let me this morning. Resident noted to be anxious this morning and brief was changed in bed after she refused to get up out of bed to toilet. Once resident calmed down and stopped coughing after she was given PRN cough syrup, daughter Alison and son stopped by to visit. Resident had been sleeping and family did not want to wake resident though requested staff let her know that they were here to visit once she woke up. When travel writer noted resident awake later on and informed resident that family had stopped by to visit though they did not want to wake her resident became irritable with nurse asking, Well why didn't you let them in? Manager Epic informed resident that family was allowed to visit and had been in her room though they chose not to wake her up as she had been sleeping. Resident continued to be irritable with travel writer stating, Well now I didn't get to see them all because you didn't let them in. You should've woken me up. Manager Epic again informed resident that family had been in her room and that this travel writer did not stop her family from coming to visit. Manager Epic attempted to redirect resident though unsuccessful so resident was left in safe setting of her room.
--- NOTE | 2023-03-09 10:49 | PC.NURSE ---
Health status note: Resident continues to have nonproductive cough with PRN cough syrup administered this morning which was effective upon followup. Bilateral eyes noted to have moderate amount of serous and yellow-tinged drainage this morning with Erythromycin ointment applied per order. Resident noted to be afebrile with temp of 98.4 and O2 sat noted to be 90% on RA.
[2023-03-09] MEDS: MELATONIN 3 MG TABLET 5 MG PO (19:07)
[2023-03-09] MEDS: MIRTAZAPINE 15 MG TABLET PO (19:07)
[2023-03-09] MEDS: DONEPEZIL 5 MG TABLET PO (19:07)
[2023-03-09] MEDS: TRAMADOL HCL 50 MG TABLET PO (19:07)
[2023-03-10] MEDS: guaiFENesin 100 MG/ML CUP PO ×3 (04:35→23:21)
[2023-03-10] MEDS: LEVOTHYROXINE 50 MCG TABLET PO (06:54)
[2023-03-10] MEDS: OMEPRAZOLE 20 MG CAPSULE DR PO (06:54)
[2023-03-10] MEDS: ACETAMINOPHEN 500 MG TABLET 1000 MG PO ×2 (07:56→23:21)
[2023-03-10] MEDS: ERYTHROMYCIN OPHTH OINT 3.5 GM 1 APPLIC EYE-BOTH ×2 (07:57→15:20)
[2023-03-10] MEDS: METFORMIN ER 500 MG PO (07:57)
[2023-03-10] MEDS: guaiFENesin 600 MG TAB.ER.12H PO ×2 (07:57→15:20)
[2023-03-10] MEDS: ASPIRIN 81 MG TABLET EC PO (07:57)
[2023-03-10] MEDS: METOPROLOL SUCCINATE (XL) 25 MG TAB PO (07:57)
[2023-03-10] MEDS: SERTRALINE 100 MG TABLET 150 MG PO (07:58)
[2023-03-10] MEDS: NON-FORMULARY MEDICATION INH (07:58)
[2023-03-10] MEDS: NYSTATIN CREAM 30 GM 1 APPLIC TOPICAL (08:30)
--- NOTE | 2023-03-10 13:18 | PC.NURSE ---
Status: Resident continues to have a cough with temp 97.4 and voice is hoarse. Resident did come out for lunch and ate all of meal. Resident was stating it was time to get in pj's for the night
[2023-03-10] MEDS: MELATONIN 3 MG TABLET 5 MG PO (19:14)
[2023-03-10] MEDS: DONEPEZIL 5 MG TABLET PO (19:14)
[2023-03-10] MEDS: MIRTAZAPINE 15 MG TABLET PO (19:15)
[2023-03-10] MEDS: TRAMADOL HCL 50 MG TABLET PO (19:15)
--- NOTE | 2023-03-11 01:01 | PC.NURSE ---
WEEKLY CHARTING WEEK 4: Vital signs review, Occasional elevated BP noted, Continue to monitor weekly, update INTERACTIVE PROJECT MANAGER as needed. Res has had increase of agitation/ behaviors at night time. She keep calling Help me, Help me without putting the light on for help. Receives Zoloft 150mg daily increase recently d/t increase agitation and Remeron 15 mg at HS with no side effects noted. Able to communicate needs, staff also anticipated needs. Has hearing impairment with bilateral hearing aid. Has cognitive impairment r/t dementia. all medications administered by licence nurse. health condition is stable.
[2023-03-11] MEDS: OMEPRAZOLE 20 MG CAPSULE DR PO (06:54)
[2023-03-11] MEDS: LEVOTHYROXINE 50 MCG TABLET PO (06:54)
[2023-03-11] MEDS: ERYTHROMYCIN OPHTH OINT 3.5 GM 1 APPLIC EYE-BOTH ×2 (08:36→15:33)
[2023-03-11] MEDS: METOPROLOL SUCCINATE (XL) 25 MG TAB PO (08:36)
[2023-03-11] MEDS: ACETAMINOPHEN 500 MG TABLET 1000 MG PO ×2 (08:36→23:20)
[2023-03-11] MEDS: guaiFENesin 600 MG TAB.ER.12H PO (08:36)
[2023-03-11] MEDS: ASPIRIN 81 MG TABLET EC PO (08:36)
[2023-03-11] MEDS: METFORMIN ER 500 MG PO (08:36)
[2023-03-11] MEDS: NON-FORMULARY MEDICATION INH (08:37)
[2023-03-11] MEDS: SERTRALINE 100 MG TABLET 150 MG PO (08:37)
--- NOTE | 2023-03-11 12:24 | PC.NURSE ---
Status/Order: ACCOUNTS RECEIVABLE BOOKKEEPERAnt here. Updated resident still coughing. Per daughter she gets this every year this time. Discontinue Guaifenesin 600 mg BID, New: Zyrtec 10 mg daily, stop on 07/20.
--- NOTE | 2023-03-11 13:04 | PC.PHA1 ---
RAILROAD ENGINEER PHARMACIST'S MEDICATION REVIEW: MEDICATION MONITORING:Sertraline 125 mg daily continues. Mirtazapine 15 mg po HS, dose increase for better sleep Metformin 500 mg daily IRREGULARITY OR COMMENTS: Discussed patient with nurse and reviewed provider and nursing notes. Patient has been struggling with cough and Zyrtec ordered today by provider as family notes this happens every year at this time. Patient is anxious and needs current sertraline and mirtazapine orders. Tramadol 50 mg hs and tid prn ordered, prn need is not daily. SUGGESTED COURSE OF ACTION TAKEN:Agree with recent addition of Zyrtec. No medication recommendations this review.
--- NOTE | 2023-03-11 16:34 | PC.NURSE ---
Weekly charting: Week 4: Vitals signs reviewed and Resident continue to have occasional elevated BP , WRAPPER SHEETER aware, temporary and permanent care plan reviewed and no changes made, resident continue on Zoloft 150 mg daily with no side effects noted, does have episode of increase agitation, resisting cares from staff and calling out help me alert and oriented and able to verbalize needs with little or non difficulty staff also anticipate and meed other needs.
[2023-03-11] MEDS: DONEPEZIL 5 MG TABLET PO (19:31)
[2023-03-11] MEDS: MELATONIN 3 MG TABLET 5 MG PO (19:31)
[2023-03-11] MEDS: TRAMADOL HCL 50 MG TABLET PO (19:32)
[2023-03-11] MEDS: MIRTAZAPINE 15 MG TABLET PO (19:32)
[2023-03-12] MEDS: NON-FORMULARY MEDICATION PO (06:43)
[2023-03-12] MEDS: LEVOTHYROXINE 50 MCG TABLET PO (06:43)
[2023-03-12] MEDS: OMEPRAZOLE 20 MG CAPSULE DR PO (06:43)
[2023-03-12] MEDS: ACETAMINOPHEN 500 MG TABLET 1000 MG PO ×2 (07:02→23:23)
[2023-03-12] MEDS: ASPIRIN 81 MG TABLET EC PO (08:25)
[2023-03-12] MEDS: METOPROLOL SUCCINATE (XL) 25 MG TAB PO (08:25)
[2023-03-12] MEDS: METFORMIN ER 500 MG PO (08:25)
[2023-03-12] MEDS: CETIRIZINE HCL 10 MG TABLET PO (08:26)
[2023-03-12] MEDS: SERTRALINE 100 MG TABLET 150 MG PO (08:26)
[2023-03-12] MEDS: NON-FORMULARY MEDICATION INH (08:27)
[2023-03-12] MEDS: ERYTHROMYCIN OPHTH OINT 3.5 GM 1 APPLIC EYE-BOTH ×2 (08:27→16:01)
[2023-03-12] MEDS: TRAMADOL HCL 50 MG TABLET PO ×2 (08:35→19:15)
--- NOTE | 2023-03-12 10:00 | PC.NURSE ---
Communication: Spoke to residents daughter Alison regarding concern about resident taking Tramadol this morning. Alison states that her and her brother advised months ago that their mother should never take Tramadol because it sends her over the edge. This nurse recalls that family had similar feelings about when resident was taking Ativan shortly after admission and mentioned this to Alison but she did not recall and stated that she felt it was the Tramadol instead. Advised that resident has been taking scheduled and PRN Tramadol since September. Daughter asked multiple times about the indication for taking Tramadol, explained that it is scheduled for pain and may be given if Tylenol is not effective by itself. Explained that generally resident doesnt take PRN dose regularily but since she has been coughing w/current illness that she has complained on L side pain 05/29 therefore nurse administered PRN dose this morning. Alison feels that this is why her mom was so out of it this morning when she came to visit. Explained that her mother has not been sleeping as well due to illness which may explain sleepiness. This nurse asked what she felt would be a better option to help control her mothers pain, but she could not advise on this. Nursing has been repositioning and offering alternative pain relief methods without success. Alison then wondered why her mother was taking it scheduled or if the Tramadol could be causing her behaviors. Discussed that sometimes behaviors can be a result of pain and discussed that her mother often c/o pain on evening and NOC shift. This nurse suggested that we wait until her mother has improved from her current illness and discuss at that time if she feels this is still an issue. Alison notes that she is going to talk to her brother about this but for now she is in agreement and her mother can continue taking the medication.
--- NOTE | 2023-03-12 10:05 | PC.NURSE ---
Resident daughter Alison here to visit. She came to desk angry that her mom had received Tramadol at 0830 for pain, stating this made her out of it and has a stomach ache. Alison requests that resident does not receive Tramadol. Discussed with nurses and felt the Tramadol has been effective in managing her pain and has been receiving since 10/10. Informed Alison resident has been sick since last week and started on Zyrtec for allergies. Will update CYLINDER CHECKER tomorrow.
--- NOTE | 2023-03-12 13:41 | PC.NURSE ---
Health status update: Resident c/o nausea this AM with temp noted to be 97.9. Resident ate approximately 50% of potatoes at lunch then stated she felt nauseous. Resident's pie included with lunch left in room along with snacks for staff to continue to encourage. Staff have also been encouraging fluids throughout the shift.
--- NOTE | 2023-03-12 13:44 | PC.NURSE ---
Behavior note: DARIN reported that resident was noted to be making negative statements after lunch such as, I'm not really here. I'm just good for nothing. Staff redirected resident and left in safe setting of resident room. Resident recently had antidepressant increased. Nursing to continue to observe behavior.
--- NOTE | 2023-03-12 13:49 | PC.SPIRITC ---
Amberly talked about being increasingly confused and not knowing where or who she was. She expressed sadness about this. Belt Puncher provided time to process feelings, and engaged Amberly in talk about her jose beliefs. We prayed the Our Father, Attila Mcdoonugh, and Glory Be. Per Amberly, she prays the Attila Mcdonough often and feels a sense of peace and relief upon recitation. I will continue to follow up for support, connection, and to engage resident in her jose practices which are a helpful coping mechanism for her.
[2023-03-12] MEDS: ACETAMINOPHEN 325 MG TABLET 650 MG PO (16:05)
[2023-03-12] MEDS: MELATONIN 3 MG TABLET 5 MG PO (19:14)
[2023-03-12] MEDS: DONEPEZIL 5 MG TABLET PO (19:14)
[2023-03-12] MEDS: MIRTAZAPINE 15 MG TABLET PO (19:15)
[2023-03-12] MEDS: guaiFENesin 100 MG/ML CUP PO (19:26)
[2023-03-12] MEDS: NYSTATIN CREAM 30 GM 1 APPLIC TOPICAL (22:00)
[2023-03-13] MEDS: LEVOTHYROXINE 50 MCG TABLET PO (07:33)
[2023-03-13] MEDS: OMEPRAZOLE 20 MG CAPSULE DR PO (07:33)
[2023-03-13] MEDS: ACETAMINOPHEN 500 MG TABLET 1000 MG PO ×2 (07:34→22:59)
[2023-03-13] MEDS: METFORMIN ER 500 MG PO (07:34)
[2023-03-13] MEDS: ASPIRIN 81 MG TABLET EC PO (07:34)
[2023-03-13] MEDS: NON-FORMULARY MEDICATION INH (07:35)
[2023-03-13] MEDS: METOPROLOL SUCCINATE (XL) 25 MG TAB PO (07:35)
[2023-03-13] MEDS: CETIRIZINE HCL 10 MG TABLET PO (07:41)
[2023-03-13] MEDS: SERTRALINE 100 MG TABLET 150 MG PO (07:41)
--- NOTE | 2023-03-13 11:17 | PC.NURSE ---
Status/Order: APPLICATIONS TESTERAnt here. Updated resident still not feeling well. Daughter here and had a talk with APPLICATIONS TESTER. Order:D/C Tramadol HS, hold PRN & use PRN Tylenol for pain.
[2023-03-13 12:58] VITALS: BP 117/72; PULSE 65; RESP 18; TEMP 36.4; O2SAT 94
[2023-03-13] MEDS: MELATONIN 3 MG TABLET 5 MG PO (19:56)
[2023-03-13] MEDS: DONEPEZIL 5 MG TABLET PO (19:56)
[2023-03-13] MEDS: MIRTAZAPINE 15 MG TABLET PO (19:56)
[2023-03-14] MEDS: OMEPRAZOLE 20 MG CAPSULE DR PO (06:52)
[2023-03-14] MEDS: LEVOTHYROXINE 50 MCG TABLET PO (06:52)
[2023-03-14] MEDS: NYSTATIN CREAM 30 GM 1 APPLIC TOPICAL (07:19)
[2023-03-14] MEDS: CETIRIZINE HCL 10 MG TABLET PO (08:36)
[2023-03-14] MEDS: SERTRALINE 100 MG TABLET 150 MG PO (08:36)
[2023-03-14] MEDS: ACETAMINOPHEN 500 MG TABLET 1000 MG PO ×2 (08:36→23:00)
[2023-03-14] MEDS: ASPIRIN 81 MG TABLET EC PO (08:36)
[2023-03-14] MEDS: NON-FORMULARY MEDICATION INH (08:36)
[2023-03-14] MEDS: METOPROLOL SUCCINATE (XL) 25 MG TAB PO (08:36)
[2023-03-14] MEDS: METFORMIN ER 500 MG PO (08:36)
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
[2023-03-14] MEDS: MELATONIN 3 MG TABLET 5 MG PO (19:37)
[2023-03-14] MEDS: MIRTAZAPINE 15 MG TABLET PO (19:37)
[2023-03-14] MEDS: DONEPEZIL 5 MG TABLET PO (19:37)
[2023-03-15] MEDS: LEVOTHYROXINE 50 MCG TABLET PO (06:45)
[2023-03-15] MEDS: OMEPRAZOLE 20 MG CAPSULE DR PO (06:45)
[2023-03-15] MEDS: ASPIRIN 81 MG TABLET EC PO (07:59)
[2023-03-15] MEDS: ACETAMINOPHEN 500 MG TABLET 1000 MG PO ×2 (07:59→23:17)
[2023-03-15] MEDS: METOPROLOL SUCCINATE (XL) 25 MG TAB PO (08:00)
[2023-03-15] MEDS: NON-FORMULARY MEDICATION INH (08:00)
[2023-03-15] MEDS: METFORMIN ER 500 MG PO (08:00)
[2023-03-15] MEDS: CETIRIZINE HCL 10 MG TABLET PO (08:01)
[2023-03-15] MEDS: SERTRALINE 100 MG TABLET 150 MG PO (08:01)
--- NOTE | 2023-03-15 10:26 | PC.NURSE ---
Status; Resident was stating during AM cares Put me in a box and sending me down the river. I want to but I don't know what its like to . I don't want to be like this. Resident is very hard to re-direct.
[2023-03-15] MEDS: guaiFENesin 100 MG/ML CUP PO (19:10)
[2023-03-15] MEDS: MIRTAZAPINE 15 MG TABLET PO (19:12)
[2023-03-15] MEDS: DONEPEZIL 5 MG TABLET PO (19:12)
[2023-03-15] MEDS: MELATONIN 3 MG TABLET 5 MG PO (19:12)
[2023-03-16] MEDS: LEVOTHYROXINE 50 MCG TABLET PO (06:47)
[2023-03-16] MEDS: OMEPRAZOLE 20 MG CAPSULE DR PO (06:47)
[2023-03-16] MEDS: METOPROLOL SUCCINATE (XL) 25 MG TAB PO (08:40)
[2023-03-16] MEDS: METFORMIN ER 500 MG PO (08:40)
[2023-03-16] MEDS: CETIRIZINE HCL 10 MG TABLET PO (08:40)
[2023-03-16] MEDS: NON-FORMULARY MEDICATION INH (08:40)
[2023-03-16] MEDS: ASPIRIN 81 MG TABLET EC PO (08:40)
[2023-03-16] MEDS: SERTRALINE 100 MG TABLET 150 MG PO (08:40)
[2023-03-16] MEDS: ACETAMINOPHEN 500 MG TABLET 1000 MG PO ×2 (08:40→23:02)
[2023-03-16] MEDS: MELATONIN 3 MG TABLET 5 MG PO (19:33)
[2023-03-16] MEDS: MIRTAZAPINE 15 MG TABLET PO (19:33)
[2023-03-16] MEDS: DONEPEZIL 5 MG TABLET PO (19:33)
[2023-03-17] MEDS: LEVOTHYROXINE 50 MCG TABLET PO (06:32)
[2023-03-17] MEDS: OMEPRAZOLE 20 MG CAPSULE DR PO (06:32)
[2023-03-17] MEDS: NON-FORMULARY MEDICATION INH (07:30)
[2023-03-17] MEDS: METFORMIN ER 500 MG PO (07:30)
[2023-03-17] MEDS: ACETAMINOPHEN 500 MG TABLET 1000 MG PO ×2 (07:30→23:22)
[2023-03-17] MEDS: ASPIRIN 81 MG TABLET EC PO (07:30)
[2023-03-17] MEDS: METOPROLOL SUCCINATE (XL) 25 MG TAB PO (07:30)
[2023-03-17] MEDS: SERTRALINE 100 MG TABLET 150 MG PO (07:31)
[2023-03-17] MEDS: CETIRIZINE HCL 10 MG TABLET PO (07:31)
[2023-03-17] MEDS: DONEPEZIL 5 MG TABLET PO (19:01)
[2023-03-17] MEDS: MELATONIN 3 MG TABLET 5 MG PO (19:01)
[2023-03-17] MEDS: MIRTAZAPINE 15 MG TABLET PO (19:01)
[2023-03-18] MEDS: OMEPRAZOLE 20 MG CAPSULE DR PO (07:12)
[2023-03-18] MEDS: ASPIRIN 81 MG TABLET EC PO (07:13)
[2023-03-18] MEDS: METFORMIN ER 500 MG PO (07:13)
[2023-03-18] MEDS: NON-FORMULARY MEDICATION INH (07:13)
[2023-03-18] MEDS: METOPROLOL SUCCINATE (XL) 25 MG TAB PO (07:13)
[2023-03-18] MEDS: ACETAMINOPHEN 500 MG TABLET 1000 MG PO ×2 (07:13→23:12)
[2023-03-18] MEDS: CETIRIZINE HCL 10 MG TABLET PO (07:13)
[2023-03-18] MEDS: SERTRALINE 100 MG TABLET 150 MG PO (07:13)
[2023-03-18] MEDS: LEVOTHYROXINE 50 MCG TABLET PO (07:13)
[2023-03-18] MEDS: MIRTAZAPINE 15 MG TABLET PO (19:14)
[2023-03-18] MEDS: DONEPEZIL 5 MG TABLET PO (19:14)
[2023-03-18] MEDS: MELATONIN 3 MG TABLET 5 MG PO (19:14)
[2023-03-19] MEDS: LEVOTHYROXINE 50 MCG TABLET PO (06:32)
[2023-03-19] MEDS: NON-FORMULARY MEDICATION PO (06:32)
[2023-03-19] MEDS: OMEPRAZOLE 20 MG CAPSULE DR PO (06:32)
[2023-03-19] MEDS: ASPIRIN 81 MG TABLET EC PO (08:16)
[2023-03-19] MEDS: METFORMIN ER 500 MG PO (08:16)
[2023-03-19] MEDS: ACETAMINOPHEN 500 MG TABLET 1000 MG PO ×2 (08:16→23:18)
[2023-03-19] MEDS: METOPROLOL SUCCINATE (XL) 25 MG TAB PO (08:16)
[2023-03-19] MEDS: CETIRIZINE HCL 10 MG TABLET PO (08:17)
[2023-03-19] MEDS: SERTRALINE 100 MG TABLET 150 MG PO (08:17)
[2023-03-19] MEDS: NON-FORMULARY MEDICATION INH (08:17)
[2023-03-19] MEDS: DONEPEZIL 5 MG TABLET PO (19:33)
[2023-03-19] MEDS: MIRTAZAPINE 15 MG TABLET PO (19:33)
[2023-03-19] MEDS: MELATONIN 3 MG TABLET 5 MG PO (19:33)
[2023-03-20] MEDS: LEVOTHYROXINE 50 MCG TABLET PO (06:45)
[2023-03-20] MEDS: OMEPRAZOLE 20 MG CAPSULE DR PO (06:45)
[2023-03-20] MEDS: ACETAMINOPHEN 500 MG TABLET 1000 MG PO ×2 (07:38→23:02)
[2023-03-20] MEDS: METFORMIN ER 500 MG PO (07:38)
[2023-03-20] MEDS: ASPIRIN 81 MG TABLET EC PO (07:38)
[2023-03-20] MEDS: CETIRIZINE HCL 10 MG TABLET PO (07:39)
[2023-03-20] MEDS: NON-FORMULARY MEDICATION INH (07:39)
[2023-03-20] MEDS: SERTRALINE 100 MG TABLET 150 MG PO (07:39)
[2023-03-20] MEDS: METOPROLOL SUCCINATE (XL) 25 MG TAB PO (07:39)
[2023-03-20 09:41] VITALS: BP 131/78; PULSE 76; RESP 18; TEMP 36.4; O2SAT 91
[2023-03-20] MEDS: MELATONIN 3 MG TABLET 5 MG PO (19:35)
[2023-03-20] MEDS: DONEPEZIL 5 MG TABLET PO (19:35)
[2023-03-20] MEDS: MIRTAZAPINE 15 MG TABLET PO (19:35)
[2023-03-21] MEDS: OMEPRAZOLE 20 MG CAPSULE DR PO (08:03)
[2023-03-21] MEDS: LEVOTHYROXINE 50 MCG TABLET PO (08:03)
[2023-03-21] MEDS: ACETAMINOPHEN 500 MG TABLET 1000 MG PO ×2 (08:03→23:22)
[2023-03-21] MEDS: METOPROLOL SUCCINATE (XL) 25 MG TAB PO (08:04)
[2023-03-21] MEDS: METFORMIN ER 500 MG PO (08:04)
[2023-03-21] MEDS: NON-FORMULARY MEDICATION INH (08:04)
[2023-03-21] MEDS: SERTRALINE 100 MG TABLET 150 MG PO (08:04)
[2023-03-21] MEDS: ASPIRIN 81 MG TABLET EC PO (08:04)
[2023-03-21] MEDS: CETIRIZINE HCL 10 MG TABLET PO (08:04)
--- NOTE | 2023-03-21 12:27 | PC.NURSE ---
Recert Visit: Resident seen by Dr. Pierce. Orders reviewed and renewed of 75 days with changes. Order: D/C Tramadol, Tylenol. New: Tylenol 1000 mg PO BID and 1000 mg daily PRN, Albuterol Neb Q6H PRN cough, wheeze. In 2 weeks, D/C Donezepil.
[2023-03-21] MEDS: MELATONIN 3 MG TABLET 5 MG PO (19:20)
[2023-03-21] MEDS: DONEPEZIL 5 MG TABLET PO (19:20)
[2023-03-21] MEDS: MIRTAZAPINE 15 MG TABLET PO (19:20)
[2023-03-22] MEDS: OMEPRAZOLE 20 MG CAPSULE DR PO (07:02)
[2023-03-22] MEDS: ACETAMINOPHEN 500 MG TABLET 1000 MG PO ×3 (07:02→23:46)
[2023-03-22] MEDS: LEVOTHYROXINE 50 MCG TABLET PO (07:02)
[2023-03-22] MEDS: NON-FORMULARY MEDICATION INH (07:03)
[2023-03-22] MEDS: guaiFENesin 100 MG/ML CUP PO (07:31)
[2023-03-22] MEDS: ASPIRIN 81 MG TABLET EC PO (08:06)
[2023-03-22] MEDS: METFORMIN ER 500 MG PO (08:07)
[2023-03-22] MEDS: CETIRIZINE HCL 10 MG TABLET PO (08:07)
[2023-03-22] MEDS: SERTRALINE 100 MG TABLET 150 MG PO (08:07)
[2023-03-22] MEDS: METOPROLOL SUCCINATE (XL) 25 MG TAB PO (08:07)
[2023-03-22] MEDS: DONEPEZIL 5 MG TABLET PO (19:24)
[2023-03-22] MEDS: MIRTAZAPINE 15 MG TABLET PO (19:25)
[2023-03-22] MEDS: MELATONIN 3 MG TABLET 5 MG PO (19:25)
--- NOTE | 2023-03-22 21:45 | PC.NURSE ---
Pain: Resident did complain of increase pain in the mid back after supper, calling out help me i am in so much pain with pain increasing in intensity with movement, PRN Tylenol 500 mg 2 tabs given with adequate relief.
[2023-03-23] MEDS: LEVOTHYROXINE 50 MCG TABLET PO (07:21)
[2023-03-23] MEDS: OMEPRAZOLE 20 MG CAPSULE DR PO (07:21)
[2023-03-23] MEDS: METFORMIN ER 500 MG PO (07:21)
[2023-03-23] MEDS: ACETAMINOPHEN 500 MG TABLET 1000 MG PO ×2 (07:21→23:22)
[2023-03-23] MEDS: ASPIRIN 81 MG TABLET EC PO (07:21)
[2023-03-23] MEDS: NON-FORMULARY MEDICATION INH (07:22)
[2023-03-23] MEDS: METOPROLOL SUCCINATE (XL) 25 MG TAB PO (07:22)
[2023-03-23] MEDS: SERTRALINE 100 MG TABLET 150 MG PO (07:22)
[2023-03-23] MEDS: CETIRIZINE HCL 10 MG TABLET PO (07:23)
[2023-03-23] MEDS: guaiFENesin 100 MG/ML CUP PO (09:12)
[2023-03-23] MEDS: DONEPEZIL 5 MG TABLET PO (19:00)
[2023-03-23] MEDS: MELATONIN 3 MG TABLET 5 MG PO (19:00)
[2023-03-23] MEDS: MIRTAZAPINE 15 MG TABLET PO (19:00)
[2023-03-24] MEDS: OMEPRAZOLE 20 MG CAPSULE DR PO (06:51)
[2023-03-24] MEDS: LEVOTHYROXINE 50 MCG TABLET PO (06:52)
[2023-03-24] MEDS: ACETAMINOPHEN 500 MG TABLET 1000 MG PO ×2 (07:00→23:13)
[2023-03-24] MEDS: ASPIRIN 81 MG TABLET EC PO (08:15)
[2023-03-24] MEDS: METFORMIN ER 500 MG PO (08:15)
[2023-03-24] MEDS: METOPROLOL SUCCINATE (XL) 25 MG TAB PO (08:16)
[2023-03-24] MEDS: SERTRALINE 100 MG TABLET 150 MG PO (08:16)
[2023-03-24] MEDS: CETIRIZINE HCL 10 MG TABLET PO (08:17)
[2023-03-24] MEDS: NON-FORMULARY MEDICATION INH (08:18)
--- NOTE | 2023-03-24 09:15 | PC.NURSE ---
Behavior note: Resident noted to be irritable this morning and said to scientific technical writer, I just want to be gone before rising for breakfast. After resident started dry heaving at breakfast in dining room, she was assisted back to room and staff provided breakfast in room. Resident shouted at scientific technical writer, Just leave me alone! You're so prim & proper.
--- NOTE | 2023-03-24 09:18 | PC.NURSE ---
Pain note: Resident c/o 7/10 pain to L ribs while being assisted with cares by DARIN this morning. Staff then administered scheduled Tylenol, provided repositioning and ice pack and encouraged resident to rest. When staff brought scheduled Tylenol to resident she became irritable and shouted, Tylenol doesn't do anything! That's not strong enough for me!. Staff were then able to give resident her scheduled Tylenol. Dante Perez came to visit after breakfast and noted resident to be irritable. Fixed Interest Dealer had discussion with dante Perez about resident having pain this morning and previous interventions being ineffective. Son Chris called daughter Alison and updated daughter regarding resident's continued c/o pain. Family requesting to have order for Tramadol given as resident was previously on this medication though family requested it to be discontinued. Fixed Interest Dealer placing call to [facility] Triage at this time to request order for Tramadol per resident's continued complaints of pain and family request.
[2023-03-24 10:09] VITALS: BP 176/83; PULSE 76; RESP 20; TEMP 36.7; O2SAT 96
--- NOTE | 2023-03-24 10:11 | PC.NURSE ---
Pain note: Respiratory Therapy Technician has placed call to [facility]riage at 0940 per family request to order Tramadol which resident was previously taking for pain. Son Chris and daughter Alison are both in agreement for order for Tramadol if order given by provider. Vital signs assessed: B/P noted to be elevated at 176/83, pulse 76, R 20, T 98.1, O2 sat 96% on RA. Resident telling information writer, I'm fine, I'm just mad when having vital signs assessed. Family also notices resident's irritability due to continued pain located to L ribs/back per res report. Staff have repositioned, encouraged rest, given scheduled Tylenol and provided warm blanket this morning though interventions ineffective. When discussing pain medication after breakfast resident stating to information writer and family, I'm not going to take any more pills.
--- NOTE | 2023-03-24 11:59 | PC.NURSE ---
Order note: New order per LEARNING DISABLED TEACHER Genesis Cain to begin Tramadol 50 mg take 1 tab po Q8H PRN pain. Family already aware of request for this order and have given permission for staff to give medication to resident if needed. LEARNING DISABLED TEACHER has already sent script to [facility].
--- NOTE | 2023-03-24 12:47 | PC.NURSE ---
Pain note: Bioinformatics Support Specialist spoke with resident after obtaining order for Tramadol. Resident states although she is still having back pain, she is declining to take medication for pain when approached. Resident stated, No, that just makes me goofy. Maybe by tonight I will change my mind if I need it. Bioinformatics Support Specialist encouraged res to alert staff if she changes her mind about wanting to take pain medication. Resident repositioned into bed and encouraged to rest before attending afternoon Bingo activity.
[2023-03-24] MEDS: DONEPEZIL 5 MG TABLET PO (19:28)
[2023-03-24] MEDS: MELATONIN 3 MG TABLET 5 MG PO (19:28)
[2023-03-24] MEDS: MIRTAZAPINE 15 MG TABLET PO (19:28)
[2023-03-24] MEDS: TRAMADOL HCL 50 MG TABLET PO (21:14)
--- NOTE | 2023-03-25 00:43 | PC.NURSE ---
Weekly charting week 1: Vital signs reviewed occasional elevated BP, Continue to monitor Weekly Notify BOARD STACKER as needed. Comprehensive and temporary care plan reviewed with no changes made. Pain regimen. Receives Acetaminophen 1000mg TID. Ultram 50mg TID PRN re instated 03/24/2023, due to increased pain to L ribs area. ADLs, requires staff 1 assist with bathing, dressing, able to participate grooming and able to brush teeth after set up. No changes of appetite noted. On regular diet with thin liquids. No swallowing issue.Able to feed self.
[2023-03-25] MEDS: LEVOTHYROXINE 50 MCG TABLET PO (06:57)
[2023-03-25] MEDS: OMEPRAZOLE 20 MG CAPSULE DR PO (06:57)
[2023-03-25] MEDS: NON-FORMULARY MEDICATION INH (07:00)
[2023-03-25] MEDS: METOPROLOL SUCCINATE (XL) 25 MG TAB PO (07:00)
[2023-03-25] MEDS: CETIRIZINE HCL 10 MG TABLET PO (07:00)
[2023-03-25] MEDS: METFORMIN ER 500 MG PO (07:00)
[2023-03-25] MEDS: ASPIRIN 81 MG TABLET EC PO (07:00)
[2023-03-25] MEDS: SERTRALINE 100 MG TABLET 150 MG PO (07:00)
[2023-03-25] MEDS: ACETAMINOPHEN 500 MG TABLET 1000 MG PO ×2 (07:00→23:19)
--- NOTE | 2023-03-25 11:29 | PC.NURSE ---
Weekly Charting, Week 1-ADL's: Comprehensive and temporary care plan reviewed. No changes made. Nothing added to temporary care plan. Resident needs extensive assist with dressing and bathing. Limited to extensive assist with grooming. Encourage resident to participate as able. Does oral cares after staff set up. Staff assist/complete as needed. Independent with feeding after set up. Is on regular diet, thin liquids. No problems with chewing/swallowing noted. Vital signs reviewed, no concerns. There was one high BP reading but resident was on pain and agitated. Continue weekly monitoring & refer to provider as needed. Pain: Has chronic back pain? managed with Tylenol 1000mg BID @08, & 23. Ultram scheduled & PRN discontinued on 03/21 per family request but then Ultram 50mg Q8H PRN was ordered on 03/24 , resident refused Tylenol stating it is not helping and wants something else. She can tell when in pain? and staff also anticipates.
[2023-03-25] MEDS: MIRTAZAPINE 15 MG TABLET PO (19:01)
[2023-03-25] MEDS: DONEPEZIL 5 MG TABLET PO (19:01)
[2023-03-25] MEDS: MELATONIN 3 MG TABLET 5 MG PO (19:01)
[2023-03-25] MEDS: TRAMADOL HCL 50 MG TABLET PO (21:40)
[2023-03-26] MEDS: NON-FORMULARY MEDICATION PO (05:27)
[2023-03-26] MEDS: LEVOTHYROXINE 50 MCG TABLET PO (06:50)
[2023-03-26] MEDS: OMEPRAZOLE 20 MG CAPSULE DR PO (06:50)
[2023-03-26] MEDS: ACETAMINOPHEN 500 MG TABLET 1000 MG PO ×2 (07:05→23:17)
[2023-03-26] MEDS: METFORMIN ER 500 MG PO (08:54)
[2023-03-26] MEDS: ASPIRIN 81 MG TABLET EC PO (08:54)
[2023-03-26] MEDS: METOPROLOL SUCCINATE (XL) 25 MG TAB PO (08:54)
[2023-03-26] MEDS: NON-FORMULARY MEDICATION INH (08:54)
[2023-03-26] MEDS: CETIRIZINE HCL 10 MG TABLET PO (08:55)
[2023-03-26] MEDS: SERTRALINE 100 MG TABLET 150 MG PO (08:55)
[2023-03-26] MEDS: TRAMADOL HCL 50 MG TABLET PO (09:00)
--- NOTE | 2023-03-26 14:35 | PC.NURSE ---
Health status note: Resident noted to have approximately 100 mL of bile emesis after lunch this afternoon. It is not uncommon for resident to have dry heaves over emesis bag though she did have emesis after lunch. Vital signs were assessed: B/P 176/90 due to resident having anxiety, P 96, R 18, T 97.1, O2 sat 91% on RA. Resident has had poor po intake today, only wanting to eat a few bites of toast and soda crackers along with drinking Sprite. Resident encouraged to rest after lunch with HOB elevated in case she has further emesis. referral nurse and evening staff have been updated. Nursing to continue to observe. Resident did receive PRN dose of Tramadol this morning though this was given because resident continued to c/o severe 10/10 left rib/back pain after scheduled Tylenol, warm blanket, rest and repositioning was ineffective. Resident becomes irritable with staff when she has this pain and Tylenol does not generally control this pain when she is experiencing it. This morning when staff attempted to assist her with cares at approximately 0700, she was rejecting cares stating she was having too much pain to L ribs/back to get up out of bed and toilet. Scheduled Tylenol was then given as resident is not always accepting of stronger PRN Tramadol medication.
[2023-03-26] MEDS: MIRTAZAPINE 15 MG TABLET PO (19:02)
[2023-03-26] MEDS: MELATONIN 3 MG TABLET 5 MG PO (19:02)
[2023-03-26] MEDS: DONEPEZIL 5 MG TABLET PO (19:02)
--- NOTE | 2023-03-26 22:00 | PC.NURSE ---
Resident had 2 small emesis this afternoon at approx. 1430 and 1530. Did take sips of sprite and had ate bites of saltine crackers. Stated she was feeling less nauseous and took a nap before supper. Did request to eat in her room, but only ate few bites. No further emesis. Resident in bed sleeping at this time.
[2023-03-27] MEDS: LEVOTHYROXINE 50 MCG TABLET PO (06:59)
[2023-03-27] MEDS: OMEPRAZOLE 20 MG CAPSULE DR PO (06:59)
[2023-03-27] MEDS: NON-FORMULARY MEDICATION INH (07:01)
[2023-03-27] MEDS: METOPROLOL SUCCINATE (XL) 25 MG TAB PO (07:07)
[2023-03-27] MEDS: METFORMIN ER 500 MG PO (07:08)
[2023-03-27] MEDS: CETIRIZINE HCL 10 MG TABLET PO (07:08)
[2023-03-27] MEDS: SERTRALINE 100 MG TABLET 150 MG PO (07:08)
[2023-03-27] MEDS: ACETAMINOPHEN 500 MG TABLET 1000 MG PO ×2 (07:08→23:18)
[2023-03-27] MEDS: ASPIRIN 81 MG TABLET EC PO (07:08)
--- NOTE | 2023-03-27 10:21 | PC.NURSE ---
Status/Order: Ant ALEX here, updated 03/26 resident had 3 emesis. Zofran 4mg PO Q8H PRN.
[2023-03-27 13:07] VITALS: BP 100/61; PULSE 70; RESP 20; TEMP 36.7; O2SAT 95
[2023-03-27] MEDS: DONEPEZIL 5 MG TABLET PO (19:00)
[2023-03-27] MEDS: MELATONIN 3 MG TABLET 5 MG PO (19:00)
[2023-03-27] MEDS: MIRTAZAPINE 15 MG TABLET PO (19:00)
[2023-03-27] MEDS: TRAMADOL HCL 50 MG TABLET PO (22:11)
[2023-03-28] MEDS: OMEPRAZOLE 20 MG CAPSULE DR PO (06:46)
[2023-03-28] MEDS: LEVOTHYROXINE 50 MCG TABLET PO (06:46)
[2023-03-28] MEDS: ASPIRIN 81 MG TABLET EC PO (07:30)
[2023-03-28] MEDS: METOPROLOL SUCCINATE (XL) 25 MG TAB PO (07:30)
[2023-03-28] MEDS: METFORMIN ER 500 MG PO (07:30)
[2023-03-28] MEDS: ACETAMINOPHEN 500 MG TABLET 1000 MG PO ×2 (07:30→23:49)
[2023-03-28] MEDS: CETIRIZINE HCL 10 MG TABLET PO (07:31)
[2023-03-28] MEDS: NON-FORMULARY MEDICATION INH (07:31)
[2023-03-28] MEDS: SERTRALINE 100 MG TABLET 150 MG PO (07:31)
[2023-03-28] MEDS: TRAMADOL HCL 50 MG TABLET PO (20:43)
[2023-03-28] MEDS: DONEPEZIL 5 MG TABLET PO (20:43)
[2023-03-28] MEDS: MELATONIN 3 MG TABLET 5 MG PO (20:43)
[2023-03-28] MEDS: MIRTAZAPINE 15 MG TABLET PO (20:43)
--- NOTE | 2023-03-28 22:32 | PC.NURSE ---
Pain: Resident c/o lower back and left side of ribs while getting into bed this evening. Requested pain pill for 7/10 rating of pain. Admin of Tramadol 50mg @ 20:43. Resident sleeping at time to reassessment.
[2023-03-29] MEDS: OMEPRAZOLE 20 MG CAPSULE DR PO (06:44)
[2023-03-29] MEDS: LEVOTHYROXINE 50 MCG TABLET PO (06:44)
[2023-03-29] MEDS: ASPIRIN 81 MG TABLET EC PO (07:19)
[2023-03-29] MEDS: ACETAMINOPHEN 500 MG TABLET 1000 MG PO ×2 (07:19→23:44)
[2023-03-29] MEDS: SERTRALINE 100 MG TABLET 150 MG PO (07:19)
[2023-03-29] MEDS: METFORMIN ER 500 MG PO (07:19)
[2023-03-29] MEDS: CETIRIZINE HCL 10 MG TABLET PO (07:19)
[2023-03-29] MEDS: NON-FORMULARY MEDICATION INH (07:19)
[2023-03-29] MEDS: METOPROLOL SUCCINATE (XL) 25 MG TAB PO (07:19)
[2023-03-29] MEDS: MELATONIN 3 MG TABLET 5 MG PO (19:50)
[2023-03-29] MEDS: DONEPEZIL 5 MG TABLET PO (19:50)
[2023-03-29] MEDS: TRAMADOL HCL 50 MG TABLET PO (19:50)
[2023-03-29] MEDS: MIRTAZAPINE 15 MG TABLET PO (19:50)
[2023-03-30] MEDS: LEVOTHYROXINE 50 MCG TABLET PO (06:47)
[2023-03-30] MEDS: OMEPRAZOLE 20 MG CAPSULE DR PO (06:47)
[2023-03-30] MEDS: METOPROLOL SUCCINATE (XL) 25 MG TAB PO (08:03)
[2023-03-30] MEDS: METFORMIN ER 500 MG PO (08:03)
[2023-03-30] MEDS: ASPIRIN 81 MG TABLET EC PO (08:03)
[2023-03-30] MEDS: ACETAMINOPHEN 500 MG TABLET 1000 MG PO ×2 (08:03→23:06)
[2023-03-30] MEDS: NON-FORMULARY MEDICATION INH (08:04)
[2023-03-30] MEDS: SERTRALINE 100 MG TABLET 150 MG PO (08:04)
[2023-03-30] MEDS: CETIRIZINE HCL 10 MG TABLET PO (08:04)
[2023-03-30] MEDS: MELATONIN 3 MG TABLET 5 MG PO (19:18)
[2023-03-30] MEDS: DONEPEZIL 5 MG TABLET PO (19:18)
[2023-03-30] MEDS: MIRTAZAPINE 15 MG TABLET PO (19:18)
[2023-03-30] MEDS: TRAMADOL HCL 50 MG TABLET PO (19:19)
[2023-03-31] MEDS: OMEPRAZOLE 20 MG CAPSULE DR PO (06:30)
[2023-03-31] MEDS: LEVOTHYROXINE 50 MCG TABLET PO (06:30)
[2023-03-31] MEDS: ACETAMINOPHEN 500 MG TABLET 1000 MG PO ×2 (08:35→23:29)
[2023-03-31] MEDS: ASPIRIN 81 MG TABLET EC PO (08:38)
[2023-03-31] MEDS: CETIRIZINE HCL 10 MG TABLET PO (08:38)
[2023-03-31] MEDS: NON-FORMULARY MEDICATION INH (08:38)
[2023-03-31] MEDS: SERTRALINE 100 MG TABLET 150 MG PO (08:38)
[2023-03-31] MEDS: METFORMIN ER 500 MG PO (08:38)
[2023-03-31] MEDS: METOPROLOL SUCCINATE (XL) 25 MG TAB PO (08:38)
[2023-03-31] MEDS: MELATONIN 3 MG TABLET 5 MG PO (19:15)
[2023-03-31] MEDS: DONEPEZIL 5 MG TABLET PO (19:15)
[2023-03-31] MEDS: MIRTAZAPINE 15 MG TABLET PO (19:15)
--- NOTE | 2023-04-01 02:48 | PC.NURSE ---
WEEKLY CHARTING - WEEK 2: MOBILITY Vital signs reviewed - no concerns. Temporary and comprehensive care plan reviewed - no change. Resident is full weight bearing, assist of 1 with gait belt for transfers and ambulation with 4WW. She is often self-transfer, independent with bed mobility with cueing from staff. Requires assist of one , bed to chair, chair to w/c, w/c to toilet, sitting to standing. Left 1/4 side rail up at all times as for independent bed mobility. She is able to propel w/c independently, staff assist to destination. Resident is at high risk for falls, current fall interventions includes: call light in reach, anticipate needs, safety checks, non-slip footwear, w/c next to bed with brakes locked, falling star magnet, bed in lowest position with brakes locked, bed and chair alarm in place and active.?
[2023-04-01] MEDS: guaiFENesin 100 MG/ML CUP PO (04:09)
--- NOTE | 2023-04-01 05:35 | PC.NURSE ---
HEALTH Cough - resident cough is back ; she was coughing till she could not go back to sleep, sitting at the edge of the bed,coughing. Cough syrup administrated at 0409.
[2023-04-01] MEDS: LEVOTHYROXINE 50 MCG TABLET PO (07:08)
[2023-04-01] MEDS: ACETAMINOPHEN 500 MG TABLET 1000 MG PO ×2 (07:08→23:08)
[2023-04-01] MEDS: OMEPRAZOLE 20 MG CAPSULE DR PO (07:08)
[2023-04-01] MEDS: ASPIRIN 81 MG TABLET EC PO (07:09)
[2023-04-01] MEDS: METFORMIN ER 500 MG PO (07:09)
[2023-04-01] MEDS: METOPROLOL SUCCINATE (XL) 25 MG TAB PO (07:10)
[2023-04-01] MEDS: NON-FORMULARY MEDICATION INH (07:10)
[2023-04-01] MEDS: SERTRALINE 100 MG TABLET 150 MG PO (07:10)
[2023-04-01] MEDS: CETIRIZINE HCL 10 MG TABLET PO (07:11)
--- NOTE | 2023-04-01 07:26 | PC.NURSE ---
Weekly Charting, Week 2 - Mobility: Comprehensive and temporary care plan reviewed. No changes made, nothing added to temporary care plan. Resident needs one assist, gait belt, 4wwalker with transfers and ambulation. Will often self transfers. Is able to self propel. Staff assist to longer distances and destinations. Needs assist with turning and positioning.? (L) 1/4 side rail up at all times as an enabler for bed mobility. Has a bed/chair alarm. Vital signs reviewed. Has one episode of elevated BP. Continue weekly monitoring and refer to provider as needed. Fall: No falls the past month. Remains a high fall risk according to assessment done on 01/14/23. Fall interventions: Call light within reach, bed in low position with brakes locked, bed/chair alarm, non skid footwear, not to be left alone in bathroom, falling star magnet, w/c locked at bedside.
[2023-04-01] MEDS: DONEPEZIL 5 MG TABLET PO (19:52)
[2023-04-01] MEDS: MIRTAZAPINE 15 MG TABLET PO (19:52)
[2023-04-01] MEDS: MELATONIN 3 MG TABLET 5 MG PO (19:52)
[2023-04-02] MEDS: SERTRALINE 100 MG TABLET 150 MG PO (07:28)
[2023-04-02] MEDS: ASPIRIN 81 MG TABLET EC PO (07:28)
[2023-04-02] MEDS: METFORMIN ER 500 MG PO (07:28)
[2023-04-02] MEDS: ACETAMINOPHEN 500 MG TABLET 1000 MG PO ×2 (07:28→23:43)
[2023-04-02] MEDS: LEVOTHYROXINE 50 MCG TABLET PO (07:28)
[2023-04-02] MEDS: NON-FORMULARY MEDICATION INH (07:28)
[2023-04-02] MEDS: METOPROLOL SUCCINATE (XL) 25 MG TAB PO (07:28)
[2023-04-02] MEDS: OMEPRAZOLE 20 MG CAPSULE DR PO (07:28)
[2023-04-02] MEDS: CETIRIZINE HCL 10 MG TABLET PO (07:29)
[2023-04-02] MEDS: NON-FORMULARY MEDICATION PO (07:44)
--- NOTE | 2023-04-02 14:35 | PC.SPIRITC ---
I provided visit for connection and support.
[2023-04-02] MEDS: MIRTAZAPINE 15 MG TABLET PO (19:29)
[2023-04-02] MEDS: MELATONIN 3 MG TABLET 5 MG PO (19:29)
[2023-04-02] MEDS: DONEPEZIL 5 MG TABLET PO (19:29)
[2023-04-03] MEDS: LEVOTHYROXINE 50 MCG TABLET PO (06:49)
[2023-04-03] MEDS: OMEPRAZOLE 20 MG CAPSULE DR PO (06:49)
[2023-04-03] MEDS: ASPIRIN 81 MG TABLET EC PO (08:05)
[2023-04-03] MEDS: ACETAMINOPHEN 500 MG TABLET 1000 MG PO ×2 (08:05→23:18)
[2023-04-03] MEDS: METFORMIN ER 500 MG PO (08:05)
[2023-04-03] MEDS: NON-FORMULARY MEDICATION INH (08:06)
[2023-04-03] MEDS: METOPROLOL SUCCINATE (XL) 25 MG TAB PO (08:06)
[2023-04-03] MEDS: SERTRALINE 100 MG TABLET 150 MG PO (08:06)
[2023-04-03] MEDS: CETIRIZINE HCL 10 MG TABLET PO (08:06)
[2023-04-03 09:56] VITALS: BP 122/70; PULSE 72; RESP 18; TEMP 36.8; O2SAT 94
[2023-04-03] MEDS: guaiFENesin 100 MG/ML CUP PO (11:13)
[2023-04-03] MEDS: DONEPEZIL 5 MG TABLET PO (19:23)
[2023-04-03] MEDS: MIRTAZAPINE 15 MG TABLET PO (19:23)
[2023-04-03] MEDS: MELATONIN 3 MG TABLET 5 MG PO (19:23)
[2023-04-04] MEDS: LEVOTHYROXINE 50 MCG TABLET PO (06:51)
[2023-04-04] MEDS: OMEPRAZOLE 20 MG CAPSULE DR PO (06:51)
[2023-04-04] MEDS: CETIRIZINE HCL 10 MG TABLET PO (07:11)
[2023-04-04] MEDS: SERTRALINE 100 MG TABLET 150 MG PO (07:11)
[2023-04-04] MEDS: METOPROLOL SUCCINATE (XL) 25 MG TAB PO (07:11)
[2023-04-04] MEDS: METFORMIN ER 500 MG PO (07:11)
[2023-04-04] MEDS: ASPIRIN 81 MG TABLET EC PO (07:11)
[2023-04-04] MEDS: ACETAMINOPHEN 500 MG TABLET 1000 MG PO ×2 (07:11→23:25)
[2023-04-04] MEDS: NON-FORMULARY MEDICATION INH (07:11)
[2023-04-04] MEDS: MIRTAZAPINE 15 MG TABLET PO (19:36)
[2023-04-04] MEDS: MELATONIN 3 MG TABLET 5 MG PO (19:36)
[2023-04-04] MEDS: DONEPEZIL 5 MG TABLET PO (19:36)
[2023-04-05] MEDS: LEVOTHYROXINE 50 MCG TABLET PO (07:24)
[2023-04-05] MEDS: OMEPRAZOLE 20 MG CAPSULE DR PO (07:24)
[2023-04-05] MEDS: SERTRALINE 100 MG TABLET 150 MG PO (07:25)
[2023-04-05] MEDS: METOPROLOL SUCCINATE (XL) 25 MG TAB PO (07:25)
[2023-04-05] MEDS: ASPIRIN 81 MG TABLET EC PO (07:25)
[2023-04-05] MEDS: ACETAMINOPHEN 500 MG TABLET 1000 MG PO ×2 (07:25→22:28)
[2023-04-05] MEDS: METFORMIN ER 500 MG PO (07:25)
[2023-04-05] MEDS: CETIRIZINE HCL 10 MG TABLET PO (07:25)
[2023-04-05] MEDS: NON-FORMULARY MEDICATION INH (07:26)
[2023-04-05] MEDS: guaiFENesin 100 MG/ML CUP PO (07:34)
[2023-04-05] MEDS: MELATONIN 3 MG TABLET 5 MG PO (19:11)
[2023-04-05] MEDS: MIRTAZAPINE 15 MG TABLET PO (19:11)
[2023-04-06] MEDS: LEVOTHYROXINE 50 MCG TABLET PO (06:35)
[2023-04-06] MEDS: OMEPRAZOLE 20 MG CAPSULE DR PO (06:35)
[2023-04-06] MEDS: guaiFENesin 100 MG/ML CUP PO (07:20)
[2023-04-06] MEDS: ASPIRIN 81 MG TABLET EC PO (07:25)
[2023-04-06] MEDS: ACETAMINOPHEN 500 MG TABLET 1000 MG PO ×2 (07:25→23:28)
[2023-04-06] MEDS: METFORMIN ER 500 MG PO (07:26)
[2023-04-06] MEDS: NON-FORMULARY MEDICATION INH (07:26)
[2023-04-06] MEDS: CETIRIZINE HCL 10 MG TABLET PO (07:26)
[2023-04-06] MEDS: SERTRALINE 100 MG TABLET 150 MG PO (07:26)
[2023-04-06] MEDS: METOPROLOL SUCCINATE (XL) 25 MG TAB PO (07:26)
[2023-04-06] MEDS: ALBUTEROL SULFATE 1.25 MG/3 ML VIAL.NEB 2.5 MG NEB (07:57)
[2023-04-06] MEDS: MIRTAZAPINE 15 MG TABLET PO (19:21)
[2023-04-06] MEDS: MELATONIN 3 MG TABLET 5 MG PO (19:21)
[2023-04-07] MEDS: LEVOTHYROXINE 50 MCG TABLET PO (06:46)
[2023-04-07] MEDS: OMEPRAZOLE 20 MG CAPSULE DR PO (06:46)
[2023-04-07] MEDS: ACETAMINOPHEN 500 MG TABLET 1000 MG PO ×2 (08:53→23:16)
[2023-04-07] MEDS: METFORMIN ER 500 MG PO (08:53)
[2023-04-07] MEDS: ASPIRIN 81 MG TABLET EC PO (08:53)
[2023-04-07] MEDS: METOPROLOL SUCCINATE (XL) 25 MG TAB PO (08:53)
[2023-04-07] MEDS: NON-FORMULARY MEDICATION INH (08:54)
[2023-04-07] MEDS: SERTRALINE 100 MG TABLET 150 MG PO (08:54)
[2023-04-07] MEDS: CETIRIZINE HCL 10 MG TABLET PO (08:54)
[2023-04-07] MEDS: MIRTAZAPINE 15 MG TABLET PO (19:22)
[2023-04-07] MEDS: MELATONIN 3 MG TABLET 5 MG PO (19:22)
--- NOTE | 2023-04-08 00:57 | PC.NURSE ---
Weekly Charting Week 3: Toileting and Skin: Vitals signs reviewed, BP occasional elevated, NATIONAL GUARD MEMBER martinez, Update provider as needed. Comprehensive and temporary care plan reviewed with no changes made. Res requires staff a assist with toileting. Has occasional bowel incontinent and has frequently incontinent of urine, Staff to check and changed as needed. Resident able to put the call light when to use the toilet. Staff assisted Res using wheelchair to bathroom and sometimes Res ambulates to the bathroom using the walker and gait belt. At times? Res did toilet self. Wears pull ups with inserts per request & comfort. Pads, farhan cares, clothing managed by staff. SKIN, Has intermittent redness under both breast, Nystatin powder applied as needed. Skin check done on bath days and during cares.
[2023-04-08] MEDS: OMEPRAZOLE 20 MG CAPSULE DR PO (07:32)
[2023-04-08] MEDS: ACETAMINOPHEN 500 MG TABLET 1000 MG PO ×2 (07:33→23:06)
[2023-04-08] MEDS: ASPIRIN 81 MG TABLET EC PO (07:33)
[2023-04-08] MEDS: METOPROLOL SUCCINATE (XL) 25 MG TAB PO (07:33)
[2023-04-08] MEDS: METFORMIN ER 500 MG PO (07:33)
[2023-04-08] MEDS: LEVOTHYROXINE 50 MCG TABLET PO (07:33)
[2023-04-08] MEDS: CETIRIZINE HCL 10 MG TABLET PO (07:34)
[2023-04-08] MEDS: SERTRALINE 100 MG TABLET 150 MG PO (07:34)
[2023-04-08] MEDS: NON-FORMULARY MEDICATION INH (07:34)
--- NOTE | 2023-04-08 09:08 | PC.NURSE ---
Phone appointment: saira Wagner with [facility] will call for med review on 04/28/23 at 2:30 PM. This is done on annual basis per [facility].
--- NOTE | 2023-04-08 11:09 | PC.NURSE ---
Weekly Charting, Week 3-Toileting: Comprehensive and temporary care plan reviewed. No changes made. Nothing added to temporary care plan. Resident needs one assist with toileting. Is frequently incontinent of urine, has occasional bowel incontinence. Staff to check every 2 hours and assist as needed.Resident will also put the call light when ready to use the toilet. Ambulates to the bathroom using the walker and gait belt. At times? will also toilet self. Wears pull ups with inserts per request & comfort. Pads, farhan cares, clothing managed by staff. Vital signs reviewed, has few episodes of elevated BP. Continue weekly monitoring and refer to providers as needed. Skin: No issues at this time. Skin is checked during cares and on bath day.
[2023-04-08] MEDS: MELATONIN 3 MG TABLET 5 MG PO (19:33)
[2023-04-08] MEDS: MIRTAZAPINE 15 MG TABLET PO (19:33)
--- NOTE | 2023-04-08 21:16 | PC.NURSE ---
Hearing aid: Resident left hearing aid missing, states she was taking her shirt off and hearing aid fell, staff did search on the floor and under the bed,on the bed, in the trash and pants pocket but unable to find hearing aid, DON and next of kin called and updated.
[2023-04-09] MEDS: NON-FORMULARY MEDICATION PO (05:30)
[2023-04-09] MEDS: guaiFENesin 100 MG/ML CUP PO (06:38)
[2023-04-09] MEDS: METFORMIN ER 500 MG PO (07:17)
[2023-04-09] MEDS: ACETAMINOPHEN 500 MG TABLET 1000 MG PO ×2 (07:17→23:06)
[2023-04-09] MEDS: OMEPRAZOLE 20 MG CAPSULE DR PO (07:17)
[2023-04-09] MEDS: METOPROLOL SUCCINATE (XL) 25 MG TAB PO (07:17)
[2023-04-09] MEDS: LEVOTHYROXINE 50 MCG TABLET PO (07:17)
[2023-04-09] MEDS: ASPIRIN 81 MG TABLET EC PO (07:17)
[2023-04-09] MEDS: NON-FORMULARY MEDICATION INH (07:18)
[2023-04-09] MEDS: CETIRIZINE HCL 10 MG TABLET PO (07:18)
[2023-04-09] MEDS: SERTRALINE 100 MG TABLET 150 MG PO (07:18)
--- NOTE | 2023-04-09 10:33 | PC.NURSE ---
Information note: DARIN located left hearing aid under resident's bed this morning during AM cares. Hearing aid was then charged for awhile before putting into resident's left ear. Daughter aware as she came to visit after lunch. insulation hoseman aware.
[2023-04-09 15:47] VITALS: BMI 21.9
[2023-04-09] MEDS: MELATONIN 3 MG TABLET 5 MG PO (19:07)
[2023-04-09] MEDS: MIRTAZAPINE 15 MG TABLET PO (19:07)
[2023-04-10] MEDS: LEVOTHYROXINE 50 MCG TABLET PO (07:39)
[2023-04-10] MEDS: ACETAMINOPHEN 500 MG TABLET 1000 MG PO ×2 (07:39→23:12)
[2023-04-10] MEDS: METOPROLOL SUCCINATE (XL) 25 MG TAB PO (07:39)
[2023-04-10] MEDS: ASPIRIN 81 MG TABLET EC PO (07:39)
[2023-04-10] MEDS: METFORMIN ER 500 MG PO (07:39)
[2023-04-10] MEDS: OMEPRAZOLE 20 MG CAPSULE DR PO (07:39)
[2023-04-10] MEDS: SERTRALINE 100 MG TABLET 150 MG PO (07:39)
[2023-04-10] MEDS: NON-FORMULARY MEDICATION INH (07:39)
[2023-04-10] MEDS: CETIRIZINE HCL 10 MG TABLET PO (07:39)
[2023-04-10 09:34] VITALS: BP 117/66; PULSE 70; RESP 18; TEMP 36.8; O2SAT 95
[2023-04-10] MEDS: MIRTAZAPINE 15 MG TABLET PO (19:44)
[2023-04-10] MEDS: MELATONIN 3 MG TABLET 5 MG PO (19:44)
[2023-04-11] MEDS: LEVOTHYROXINE 50 MCG TABLET PO (06:44)
[2023-04-11] MEDS: OMEPRAZOLE 20 MG CAPSULE DR PO (06:44)
[2023-04-11] MEDS: ACETAMINOPHEN 500 MG TABLET 1000 MG PO ×2 (07:05→23:19)
[2023-04-11] MEDS: ASPIRIN 81 MG TABLET EC PO (07:06)
[2023-04-11] MEDS: METOPROLOL SUCCINATE (XL) 25 MG TAB PO (07:06)
[2023-04-11] MEDS: SERTRALINE 100 MG TABLET 150 MG PO (07:06)
[2023-04-11] MEDS: METFORMIN ER 500 MG PO (07:06)
[2023-04-11] MEDS: NON-FORMULARY MEDICATION INH (07:06)
[2023-04-11] MEDS: CETIRIZINE HCL 10 MG TABLET PO (07:06)
[2023-04-11] MEDS: MELATONIN 3 MG TABLET 5 MG PO (19:37)
[2023-04-11] MEDS: MIRTAZAPINE 15 MG TABLET PO (19:37)
[2023-04-12] MEDS: OMEPRAZOLE 20 MG CAPSULE DR PO (06:37)
[2023-04-12] MEDS: LEVOTHYROXINE 50 MCG TABLET PO (06:38)
[2023-04-12] MEDS: ACETAMINOPHEN 500 MG TABLET 1000 MG PO ×2 (08:27→23:00)
[2023-04-12] MEDS: ASPIRIN 81 MG TABLET EC PO (08:28)
[2023-04-12] MEDS: CETIRIZINE HCL 10 MG TABLET PO (08:28)
[2023-04-12] MEDS: METOPROLOL SUCCINATE (XL) 25 MG TAB PO (08:28)
[2023-04-12] MEDS: METFORMIN ER 500 MG PO (08:28)
[2023-04-12] MEDS: SERTRALINE 100 MG TABLET 150 MG PO (08:28)
[2023-04-12] MEDS: NON-FORMULARY MEDICATION INH (08:28)
[2023-04-12] MEDS: MIRTAZAPINE 15 MG TABLET PO (19:04)
[2023-04-12] MEDS: MELATONIN 3 MG TABLET 5 MG PO (19:04)
[2023-04-13] MEDS: OMEPRAZOLE 20 MG CAPSULE DR PO (06:31)
[2023-04-13] MEDS: LEVOTHYROXINE 50 MCG TABLET PO (06:32)
[2023-04-13] MEDS: METFORMIN ER 500 MG PO (07:35)
[2023-04-13] MEDS: METOPROLOL SUCCINATE (XL) 25 MG TAB PO (07:35)
[2023-04-13] MEDS: ACETAMINOPHEN 500 MG TABLET 1000 MG PO ×2 (07:35→23:10)
[2023-04-13] MEDS: ASPIRIN 81 MG TABLET EC PO (07:35)
[2023-04-13] MEDS: CETIRIZINE HCL 10 MG TABLET PO (07:36)
[2023-04-13] MEDS: NON-FORMULARY MEDICATION INH (07:36)
[2023-04-13] MEDS: SERTRALINE 100 MG TABLET 150 MG PO (07:36)
--- NOTE | 2023-04-13 12:56 | PC.NURSE ---
Behavior: Resident put call light on x6 before breakfast to go to the bathroom from 6:30am to 8am. Resident also was calling out Help me, when asked what she needed would not answer this junior underwriter.
[2023-04-13] MEDS: MELATONIN 3 MG TABLET 5 MG PO (20:21)
[2023-04-13] MEDS: MIRTAZAPINE 15 MG TABLET PO (20:21)
[2023-04-14] MEDS: LEVOTHYROXINE 50 MCG TABLET PO (06:37)
[2023-04-14] MEDS: OMEPRAZOLE 20 MG CAPSULE DR PO (06:37)
[2023-04-14] MEDS: METOPROLOL SUCCINATE (XL) 25 MG TAB PO (08:36)
[2023-04-14] MEDS: ASPIRIN 81 MG TABLET EC PO (08:36)
[2023-04-14] MEDS: METFORMIN ER 500 MG PO (08:36)
[2023-04-14] MEDS: ACETAMINOPHEN 500 MG TABLET 1000 MG PO ×2 (08:36→23:20)
[2023-04-14] MEDS: NON-FORMULARY MEDICATION INH (08:37)
[2023-04-14] MEDS: SERTRALINE 100 MG TABLET 150 MG PO (08:37)
[2023-04-14] MEDS: CETIRIZINE HCL 10 MG TABLET PO (08:37)
[2023-04-14] MEDS: MELATONIN 3 MG TABLET 5 MG PO (19:17)
[2023-04-14] MEDS: MIRTAZAPINE 15 MG TABLET PO (19:17)
--- NOTE | 2023-04-15 04:10 | PC.NURSE ---
WEEKLY CHARTING WEEK 4 : COMMUNICATION, HEARING/VISION,COGNITION/BEHAVIORS Vital signs review, Occasional elevated BP noted, Continue to monitor weekly, update AUTOMOTIVE GENERATOR REPAIRER as needed.? Resident has had increase of agitation and confusion at night time ; getting up and will turn the alarm off before staff get to her room. Zoloft 150mg daily increase recently d/t increase agitation and Remeron 15 mg at HS with no side effects noted. She is able to communicate needs, staff also anticipated needs. She has hearing impairment with bilateral hearing aid ; Has cognitive impairment due to Dementia. All medications administered by licence nurse, her health condition is stable.
--- NOTE | 2023-04-15 07:32 | PC.NURSE ---
Weekly Charting - Week 4: Comprehensive care plan reviewed, no changes made. Nothing added to temporary care plan. No changes noted in communication, hearing, vision or orientation. Resident does communicate needs. Staff also anticipates. Is hard of hearing, wears bilateral hearing aids kept in her room per request. Staff put in am, removed at HS. Vision impaired, corrected with glasses. Has cognitive impairment r/t dementia. Chronic health condition stable. Nurse administers all medications. Vital signs reviewed, with few elevated BP's. Continue weekly monitoring and refer to provider as needed. Mood/Behavior: Has increase episodes of agitation & confusion. 03/06 Increase Zoloft to 150 mg daily. Continues on Remeron 15mg @ HS & Melatonin 3mg @ HS with no adverse effects noted. Continue to monitor? changes in mood/behaviors & refer to provider as needed.
[2023-04-15] MEDS: METFORMIN ER 500 MG PO (07:43)
[2023-04-15] MEDS: LEVOTHYROXINE 50 MCG TABLET PO (07:43)
[2023-04-15] MEDS: ASPIRIN 81 MG TABLET EC PO (07:43)
[2023-04-15] MEDS: ACETAMINOPHEN 500 MG TABLET 1000 MG PO ×2 (07:43→23:14)
[2023-04-15] MEDS: OMEPRAZOLE 20 MG CAPSULE DR PO (07:43)
[2023-04-15] MEDS: METOPROLOL SUCCINATE (XL) 25 MG TAB PO (07:43)
[2023-04-15] MEDS: NON-FORMULARY MEDICATION INH (07:44)
[2023-04-15] MEDS: SERTRALINE 100 MG TABLET 150 MG PO (07:44)
[2023-04-15] MEDS: CETIRIZINE HCL 10 MG TABLET PO (07:44)
--- NOTE | 2023-04-15 13:16 | PC.NURSE ---
Diet: Changed to regular from regular with added salt.
--- NOTE | 2023-04-15 14:00 | PC.NURSE ---
CARE CONFERENCE: Care conference meeting held with all members of care team present. Family was unable to attend in person. Due to residents cognition level she did not participate. Resident has been stable for the past three months. Resident had become more compliant with calling for assistance when getting out of bed, but over the past couple of weeks has been having more behaviors on the NOC shift and has been self-transferring. Discussed that resident becomes more confused during the evening hours. She has also thrown her incontinence pad at staff and refused cares. Discussed high fall risk. Resident does propel her w/c at times. At times staff assist with w/c propelling. Nursing reviewed that resident continues to need 1 assist with adls, transfers, and mobility. Resident does report to family that she does not like ambulating with her walker with staff. Family is in agreement that resident should continue to ambulate daily and encourage resident to do so. Resident is incontinent of bowel and bladder. Discussed medication changes and dx associated with them. Tramadol was recently changed from scheduled to PRN--this nurse discussed possible behaviors on NOC d/t pain. Family did not have any comments on this. DNR/DNI. POLST reviewed. Uses no restraints. Does use 1- 1/4 side rail up to assist with positioning and independence with bed mobility.? Resident is given medications by staff.? Vulnerable due to mobility limitations, cognition and hearing loss. Weight is stable. Eating well. At this time family/resident have no concerns and no appointments needed. No further questions/concerns at this time.
--- NOTE | 2023-04-15 14:46 | PC.SOCIAL ---
Resident's care conference was held today. Resident did not attend and no family was present. Resident remains stable has had more episodes of confusion and behaviors in the evening. Staff are redirecting and monitoring. Family is aware. Mood. remains stable no s/s of depression noted. Family is very suportive and visits freq.
[2023-04-15] MEDS: MIRTAZAPINE 15 MG TABLET PO (19:14)
[2023-04-15] MEDS: MELATONIN 3 MG TABLET 5 MG PO (19:14)
--- NOTE | 2023-04-15 23:42 | PC.NURSE ---
MDS CLARIFICATION: Discrepancies in DARIN ADL charting noted. Staff were interviewed for clarification. Eating: staff report that resident did not require supervision, rather resident is independent with setup assist of one staff for at least three instances during the 7 day lookback. Coded as such.
[2023-04-16] MEDS: NON-FORMULARY MEDICATION PO (05:24)
[2023-04-16] MEDS: OMEPRAZOLE 20 MG CAPSULE DR PO (07:11)
[2023-04-16] MEDS: LEVOTHYROXINE 50 MCG TABLET PO (07:11)
[2023-04-16] MEDS: ACETAMINOPHEN 500 MG TABLET 1000 MG PO ×2 (08:11→23:10)
[2023-04-16] MEDS: ASPIRIN 81 MG TABLET EC PO (08:12)
[2023-04-16] MEDS: METOPROLOL SUCCINATE (XL) 25 MG TAB PO (08:12)
[2023-04-16] MEDS: METFORMIN ER 500 MG PO (08:12)
[2023-04-16] MEDS: CETIRIZINE HCL 10 MG TABLET PO (08:13)
[2023-04-16] MEDS: NON-FORMULARY MEDICATION INH (08:13)
[2023-04-16] MEDS: SERTRALINE 100 MG TABLET 150 MG PO (08:13)
--- NOTE | 2023-04-16 10:13 | PC.PHA1 ---
COPY SUPERVISOR PHARMACIST'S MEDICATION REVIEW: MEDICATION MONITORING:Sertraline 125 mg, Mirtazapine 15 mg IRREGULARITY OR COMMENTS:Patient doing well, only complains about chronic urinary issue,GDR of psychotropics clinically contraindicated at time of this review as patient is happy and has little to no anxiety. Agree with stopping tramadol, most elderly experience side effects. SUGGESTED COURSE OF ACTION TAKEN:No medication recommendations at this time.
[2023-04-16] MEDS: MELATONIN 3 MG TABLET 5 MG PO (19:32)
[2023-04-16] MEDS: MIRTAZAPINE 15 MG TABLET PO (19:33)
[2023-04-17] MEDS: LEVOTHYROXINE 50 MCG TABLET PO (06:59)
[2023-04-17] MEDS: ACETAMINOPHEN 500 MG TABLET 1000 MG PO ×2 (06:59→23:32)
[2023-04-17] MEDS: ASPIRIN 81 MG TABLET EC PO (06:59)
[2023-04-17] MEDS: NON-FORMULARY MEDICATION INH (06:59)
[2023-04-17] MEDS: OMEPRAZOLE 20 MG CAPSULE DR PO (06:59)
[2023-04-17] MEDS: CETIRIZINE HCL 10 MG TABLET PO (06:59)
[2023-04-17] MEDS: SERTRALINE 100 MG TABLET 150 MG PO (06:59)
[2023-04-17] MEDS: METFORMIN ER 500 MG PO (06:59)
[2023-04-17] MEDS: METOPROLOL SUCCINATE (XL) 25 MG TAB PO (06:59)
[2023-04-17 09:52] VITALS: BP 128/68; PULSE 74; RESP 18; TEMP 36.6; O2SAT 96
[2023-04-17] MEDS: MIRTAZAPINE 15 MG TABLET PO (19:18)
[2023-04-17] MEDS: MELATONIN 3 MG TABLET 5 MG PO (19:18)
[2023-04-18] MEDS: NON-FORMULARY MEDICATION INH (07:21)
[2023-04-18] MEDS: METOPROLOL SUCCINATE (XL) 25 MG TAB PO (07:21)
[2023-04-18] MEDS: METFORMIN ER 500 MG PO (07:21)
[2023-04-18] MEDS: ASPIRIN 81 MG TABLET EC PO (07:21)
[2023-04-18] MEDS: ACETAMINOPHEN 500 MG TABLET 1000 MG PO ×2 (07:21→23:21)
[2023-04-18] MEDS: SERTRALINE 100 MG TABLET 150 MG PO (07:21)
[2023-04-18] MEDS: OMEPRAZOLE 20 MG CAPSULE DR PO (07:21)
[2023-04-18] MEDS: LEVOTHYROXINE 50 MCG TABLET PO (07:21)
[2023-04-18] MEDS: CETIRIZINE HCL 10 MG TABLET PO (07:21)
[2023-04-18] MEDS: MELATONIN 3 MG TABLET 5 MG PO (19:10)
[2023-04-18] MEDS: MIRTAZAPINE 15 MG TABLET PO (19:10)
[2023-04-19] MEDS: OMEPRAZOLE 20 MG CAPSULE DR PO (07:40)
[2023-04-19] MEDS: LEVOTHYROXINE 50 MCG TABLET PO (07:40)
[2023-04-19] MEDS: METOPROLOL SUCCINATE (XL) 25 MG TAB PO (07:41)
[2023-04-19] MEDS: METFORMIN ER 500 MG PO (07:41)
[2023-04-19] MEDS: ASPIRIN 81 MG TABLET EC PO (07:41)
[2023-04-19] MEDS: ACETAMINOPHEN 500 MG TABLET 1000 MG PO ×2 (07:41→23:21)
[2023-04-19] MEDS: SERTRALINE 100 MG TABLET 150 MG PO (07:41)
[2023-04-19] MEDS: NON-FORMULARY MEDICATION INH (07:42)
[2023-04-19] MEDS: CETIRIZINE HCL 10 MG TABLET PO (07:42)
[2023-04-19] MEDS: MIRTAZAPINE 15 MG TABLET PO (19:22)
[2023-04-19] MEDS: MELATONIN 3 MG TABLET 5 MG PO (19:22)
[2023-04-20] MEDS: OMEPRAZOLE 20 MG CAPSULE DR PO (07:11)
[2023-04-20] MEDS: LEVOTHYROXINE 50 MCG TABLET PO (07:12)
[2023-04-20] MEDS: METFORMIN ER 500 MG PO (07:12)
[2023-04-20] MEDS: ACETAMINOPHEN 500 MG TABLET 1000 MG PO ×2 (07:12→23:33)
[2023-04-20] MEDS: ASPIRIN 81 MG TABLET EC PO (07:12)
[2023-04-20] MEDS: METOPROLOL SUCCINATE (XL) 25 MG TAB PO (07:12)
[2023-04-20] MEDS: SERTRALINE 100 MG TABLET 150 MG PO (07:12)
[2023-04-20] MEDS: CETIRIZINE HCL 10 MG TABLET PO (07:13)
[2023-04-20] MEDS: NON-FORMULARY MEDICATION INH (07:13)
[2023-04-20] MEDS: MIRTAZAPINE 15 MG TABLET PO (19:05)
[2023-04-20] MEDS: MELATONIN 3 MG TABLET 5 MG PO (19:05)
[2023-04-21] MEDS: LEVOTHYROXINE 50 MCG TABLET PO (07:38)
[2023-04-21] MEDS: OMEPRAZOLE 20 MG CAPSULE DR PO (07:38)
[2023-04-21] MEDS: METOPROLOL SUCCINATE (XL) 25 MG TAB PO (07:39)
[2023-04-21] MEDS: METFORMIN ER 500 MG PO (07:39)
[2023-04-21] MEDS: ASPIRIN 81 MG TABLET EC PO (07:39)
[2023-04-21] MEDS: ACETAMINOPHEN 500 MG TABLET 1000 MG PO ×2 (07:39→23:25)
[2023-04-21] MEDS: NON-FORMULARY MEDICATION INH (07:39)
[2023-04-21] MEDS: SERTRALINE 100 MG TABLET 150 MG PO (07:40)
[2023-04-21] MEDS: CETIRIZINE HCL 10 MG TABLET PO (07:40)
--- NOTE | 2023-04-21 09:16 | PC.NURSE ---
Behavior note: Resident had behavior while taking 0800 medications this morning. She became irritable because this tech writer had to watch her take medications. Resident started swearing at tech writer and yelled, You don't trust me to take these, I see how it is! Taxi Truck Driver reassured resident that nurse watches everyone take their morning medications (who do not self-admin) though resident remained upset. She yelled, I'll take these now so you can get out of here!! Resident was also overheard complaining to DARIN about nurse having to watch her take medications. DARIN reassured resident that nurse is only doing what nurse is supposed to. Resident ambulated to dining room and left in safe setting. No further episodes of yelling noted so far this shift.
[2023-04-21] MEDS: MELATONIN 3 MG TABLET 5 MG PO (20:02)
[2023-04-21] MEDS: MIRTAZAPINE 15 MG TABLET PO (20:02)
--- NOTE | 2023-04-22 01:50 | PC.NURSE ---
WEEKLY CHARTING WEEK 1 : PAIN AND ADL`S Vital signs reviewed, no concerns.Continue weekly monitoring and refer to provider as needed. Comprehensive care plan reviewed, no changes made. Temporary care plan, diet changed to regular, still thin liquid. Resident needs extensive assist of one with dressing and bathing. Limited assist with grooming ; can do oral cares after staff set up. Staff assist/complete as needed. Independent with feeding after set up ;No problems with chewing/swallowing . Pain: resident has chronic back pain? managed with Tylenol 1000mg BID at 0800, 2300. Tramadol 50mg Q8H PRN was ordered on 03/24/23. Resident tend to refuse Tylenol stating it is not helping and wants something else. She voices pain, staff do anticipate.
[2023-04-22] MEDS: OMEPRAZOLE 20 MG CAPSULE DR PO (06:46)
[2023-04-22] MEDS: LEVOTHYROXINE 50 MCG TABLET PO (06:46)
[2023-04-22] MEDS: ASPIRIN 81 MG TABLET EC PO (07:59)
[2023-04-22] MEDS: METFORMIN ER 500 MG PO (07:59)
[2023-04-22] MEDS: ACETAMINOPHEN 500 MG TABLET 1000 MG PO ×2 (07:59→22:43)
[2023-04-22] MEDS: NON-FORMULARY MEDICATION INH (07:59)
[2023-04-22] MEDS: METOPROLOL SUCCINATE (XL) 25 MG TAB PO (07:59)
[2023-04-22] MEDS: CETIRIZINE HCL 10 MG TABLET PO (08:00)
[2023-04-22] MEDS: SERTRALINE 100 MG TABLET 150 MG PO (08:00)
[2023-04-22] MEDS: MELATONIN 3 MG TABLET 5 MG PO (19:23)
[2023-04-22] MEDS: MIRTAZAPINE 15 MG TABLET PO (19:23)
--- NOTE | 2023-04-22 22:16 | PC.NURSE ---
Weekly Charting, Week 1-ADL's: Comprehensive and temporary care plan reviewed. Temporary care plan updated on 04/15 to regular diet. Resident needs extensive assist with dressing and bathing. Limited to extensive assist with grooming. Encourage resident to participate as able. Does oral cares after staff set up. Staff assist/complete as needed. Independent with feeding after set up. Is on regular diet, thin liquids. No problems with chewing/swallowing noted. Vital signs reviewed, no concerns. Continue weekly monitoring & refer to provider as needed. Pain: Has chronic back pain managed with Tylenol 1000mg BID @08, & 23. Ultram scheduled & PRN discontinued on 03/21 per family request but then Ultram 50mg Q8H PRN was ordered on 03/24 , resident refused Tylenol stating it is not helping and wants something else. She can tell when in pain?and staff also anticipates. Has used Tramadol 50mg PRN x2 this month.
[2023-04-23] MEDS: NON-FORMULARY MEDICATION PO (05:03)
[2023-04-23] MEDS: METFORMIN ER 500 MG PO (07:04)
[2023-04-23] MEDS: OMEPRAZOLE 20 MG CAPSULE DR PO (07:04)
[2023-04-23] MEDS: LEVOTHYROXINE 50 MCG TABLET PO (07:04)
[2023-04-23] MEDS: METOPROLOL SUCCINATE (XL) 25 MG TAB PO (07:04)
[2023-04-23] MEDS: SERTRALINE 100 MG TABLET 150 MG PO (07:04)
[2023-04-23] MEDS: ASPIRIN 81 MG TABLET EC PO (07:04)
[2023-04-23] MEDS: ACETAMINOPHEN 500 MG TABLET 1000 MG PO ×2 (07:04→23:20)
[2023-04-23] MEDS: NON-FORMULARY MEDICATION INH (07:05)
[2023-04-23] MEDS: CETIRIZINE HCL 10 MG TABLET PO (07:05)
[2023-04-23] MEDS: MIRTAZAPINE 15 MG TABLET PO (19:44)
[2023-04-23] MEDS: MELATONIN 3 MG TABLET 5 MG PO (19:44)
[2023-04-24] MEDS: NYSTATIN CREAM 30 GM 1 APPLIC TOPICAL (07:28)
[2023-04-24] MEDS: LEVOTHYROXINE 50 MCG TABLET PO (07:32)
[2023-04-24] MEDS: OMEPRAZOLE 20 MG CAPSULE DR PO (07:32)
[2023-04-24] MEDS: METOPROLOL SUCCINATE (XL) 25 MG TAB PO (07:33)
[2023-04-24] MEDS: ASPIRIN 81 MG TABLET EC PO (07:33)
[2023-04-24] MEDS: ACETAMINOPHEN 500 MG TABLET 1000 MG PO ×2 (07:33→23:29)
[2023-04-24] MEDS: METFORMIN ER 500 MG PO (07:33)
[2023-04-24] MEDS: NON-FORMULARY MEDICATION INH (07:33)
[2023-04-24] MEDS: SERTRALINE 100 MG TABLET 150 MG PO (07:34)
[2023-04-24] MEDS: CETIRIZINE HCL 10 MG TABLET PO (07:34)
[2023-04-24 07:43] VITALS: BP 158/68; PULSE 69; RESP 18; TEMP 36.7; O2SAT 96
[2023-04-24] MEDS: MELATONIN 3 MG TABLET 5 MG PO (19:02)
[2023-04-24] MEDS: MIRTAZAPINE 15 MG TABLET PO (19:02)
[2023-04-25] MEDS: OMEPRAZOLE 20 MG CAPSULE DR PO (06:40)
[2023-04-25] MEDS: LEVOTHYROXINE 50 MCG TABLET PO (06:40)
[2023-04-25] MEDS: ACETAMINOPHEN 500 MG TABLET 1000 MG PO ×2 (08:38→23:53)
[2023-04-25] MEDS: NON-FORMULARY MEDICATION INH (08:39)
[2023-04-25] MEDS: ASPIRIN 81 MG TABLET EC PO (08:39)
[2023-04-25] MEDS: SERTRALINE 100 MG TABLET 150 MG PO (08:39)
[2023-04-25] MEDS: METFORMIN ER 500 MG PO (08:39)
[2023-04-25] MEDS: METOPROLOL SUCCINATE (XL) 25 MG TAB PO (08:39)
[2023-04-25] MEDS: CETIRIZINE HCL 10 MG TABLET PO (08:39)
--- NOTE | 2023-04-25 09:54 | PC.NURSE ---
Skin: Was noted that area under L breast was cracked, duoderm applied after washing
[2023-04-25] MEDS: MELATONIN 3 MG TABLET 5 MG PO (19:08)
[2023-04-25] MEDS: MIRTAZAPINE 15 MG TABLET PO (19:09)
[2023-04-26] MEDS: OMEPRAZOLE 20 MG CAPSULE DR PO (06:41)
[2023-04-26] MEDS: LEVOTHYROXINE 50 MCG TABLET PO (06:41)
[2023-04-26] MEDS: METFORMIN ER 500 MG PO (07:41)
[2023-04-26] MEDS: CETIRIZINE HCL 10 MG TABLET PO (07:41)
[2023-04-26] MEDS: NON-FORMULARY MEDICATION INH (07:41)
[2023-04-26] MEDS: ACETAMINOPHEN 500 MG TABLET 1000 MG PO ×2 (07:41→22:43)
[2023-04-26] MEDS: ASPIRIN 81 MG TABLET EC PO (07:41)
[2023-04-26] MEDS: METOPROLOL SUCCINATE (XL) 25 MG TAB PO (07:41)
[2023-04-26] MEDS: SERTRALINE 100 MG TABLET 150 MG PO (07:41)
[2023-04-26] MEDS: MELATONIN 3 MG TABLET 5 MG PO (19:12)
[2023-04-26] MEDS: MIRTAZAPINE 15 MG TABLET PO (19:12)
--- NOTE | 2023-04-27 06:23 | PC.NURSE ---
Around 04:00 found Resident did self transfer to bathroom. Turn of the bed alarm and chair alarm. When DARIN offered help, Resident refused to be changed, refused to go back to bed, was upset, started yelling and cursing to DARIN. DARIN reported to RN. Another DARIN re approach, listen and validate Resident feelings. Resident allowed DARIN to help changed incontinent pad and back to bed.
[2023-04-27] MEDS: LEVOTHYROXINE 50 MCG TABLET PO (06:43)
[2023-04-27] MEDS: OMEPRAZOLE 20 MG CAPSULE DR PO (06:43)
[2023-04-27] MEDS: METOPROLOL SUCCINATE (XL) 25 MG TAB PO (07:19)
[2023-04-27] MEDS: ACETAMINOPHEN 500 MG TABLET 1000 MG PO ×2 (07:19→22:53)
[2023-04-27] MEDS: METFORMIN ER 500 MG PO (07:19)
[2023-04-27] MEDS: ASPIRIN 81 MG TABLET EC PO (07:19)
[2023-04-27] MEDS: NON-FORMULARY MEDICATION INH (07:20)
[2023-04-27] MEDS: CETIRIZINE HCL 10 MG TABLET PO (07:20)
[2023-04-27] MEDS: SERTRALINE 100 MG TABLET 150 MG PO (07:20)
[2023-04-27] MEDS: MELATONIN 3 MG TABLET 5 MG PO (19:33)
[2023-04-27] MEDS: MIRTAZAPINE 15 MG TABLET PO (19:33)
[2023-04-28] MEDS: OMEPRAZOLE 20 MG CAPSULE DR PO (06:40)
[2023-04-28] MEDS: LEVOTHYROXINE 50 MCG TABLET PO (06:40)
[2023-04-28] MEDS: METFORMIN ER 500 MG PO (07:09)
[2023-04-28] MEDS: METOPROLOL SUCCINATE (XL) 25 MG TAB PO (07:09)
[2023-04-28] MEDS: ACETAMINOPHEN 500 MG TABLET 1000 MG PO ×2 (07:09→23:44)
[2023-04-28] MEDS: ASPIRIN 81 MG TABLET EC PO (07:09)
[2023-04-28] MEDS: NON-FORMULARY MEDICATION INH (07:09)
[2023-04-28] MEDS: CETIRIZINE HCL 10 MG TABLET PO (07:10)
[2023-04-28] MEDS: SERTRALINE 100 MG TABLET 150 MG PO (07:10)
--- NOTE | 2023-04-28 15:12 | PC.NURSE ---
Resident had a med reconciliation done via phone this afternoon with pharmacist Kristy from [facility]. Current med list and recent labs were faxed to [facility] per request.
[2023-04-28] MEDS: MAG HYDROX/ALUMINUM HYD/SIMETH 30 ML ORAL.SUSP PO (16:34)
[2023-04-28] MEDS: MELATONIN 3 MG TABLET 5 MG PO (19:16)
[2023-04-28] MEDS: MIRTAZAPINE 15 MG TABLET PO (19:17)
--- NOTE | 2023-04-29 07:04 | PC.NURSE ---
WEEKLY CHARTING -WEEK 2- MOBILITY : Comprehensive and temporary care plan reviewed. No changes made, nothing added to temporary care plan. Resident needs one assist, gait belt with walker with transfers and ambulation. Will often self transfers herself to the bathroom. Is able to self propel. Staff assist to longer distances and destinations. Needs assist with turning and positioning.? (L) 1/4 side rail up at all times as an enabler for bed mobility. Has a bed/chair alarm. Vital signs reviewed and no changes made at this time. Continue weekly monitoring and refer to provider as needed. Fall: No falls the past month. Remains a high fall risk according to assessment done on 01/14/23. Fall interventions: Frequent check, call light within reach, bed in low position with brakes locked, bed/chair alarm, non skid footwear, not to be left alone in bathroom, falling star magnet for staff awareness , w/c locked at bedside.
[2023-04-29] MEDS: LEVOTHYROXINE 50 MCG TABLET PO (07:39)
[2023-04-29] MEDS: OMEPRAZOLE 20 MG CAPSULE DR PO (07:39)
[2023-04-29] MEDS: NON-FORMULARY MEDICATION INH (07:40)
[2023-04-29] MEDS: METFORMIN ER 500 MG PO (08:23)
[2023-04-29] MEDS: ACETAMINOPHEN 500 MG TABLET 1000 MG PO ×2 (08:23→23:04)
[2023-04-29] MEDS: ASPIRIN 81 MG TABLET EC PO (08:23)
[2023-04-29] MEDS: METOPROLOL SUCCINATE (XL) 25 MG TAB PO (08:24)
[2023-04-29] MEDS: CETIRIZINE HCL 10 MG TABLET PO (08:24)
[2023-04-29] MEDS: SERTRALINE 100 MG TABLET 150 MG PO (08:24)
[2023-04-29] MEDS: MIRTAZAPINE 15 MG TABLET PO (19:12)
[2023-04-29] MEDS: MELATONIN 3 MG TABLET 5 MG PO (19:12)
--- NOTE | 2023-04-30 03:50 | PC.NURSE ---
Overheard Resident yelling and cursing DARIN. Outside Solar Sales Consultant went to the room and find out what is going on. Resident said I am not going to do anything when that Bitch standing in front of me. I had a dream that she is gonna be here with me. I have to leave this place because of her (DARIN). I don't want to see her again. Outside Solar Sales Consultant acknowledge and validate Res feeling, Re approach Res, help her going to the bathroom. She let feature writer took in the bathroom and change incontinent wet pad, brought her back to bed.
[2023-04-30] MEDS: NON-FORMULARY MEDICATION PO (07:09)
[2023-04-30] MEDS: LEVOTHYROXINE 50 MCG TABLET PO (07:10)
[2023-04-30] MEDS: METOPROLOL SUCCINATE (XL) 25 MG TAB PO (07:10)
[2023-04-30] MEDS: NON-FORMULARY MEDICATION INH (07:10)
[2023-04-30] MEDS: OMEPRAZOLE 20 MG CAPSULE DR PO (07:10)
[2023-04-30] MEDS: METFORMIN ER 500 MG PO (07:10)
[2023-04-30] MEDS: ASPIRIN 81 MG TABLET EC PO (07:10)
[2023-04-30] MEDS: ACETAMINOPHEN 500 MG TABLET 1000 MG PO ×2 (07:10→23:08)
[2023-04-30] MEDS: CETIRIZINE HCL 10 MG TABLET PO (07:11)
[2023-04-30] MEDS: SERTRALINE 100 MG TABLET 150 MG PO (07:11)
--- NOTE | 2023-04-30 10:29 | PC.NURSE ---
Skin note: MUSTANGER assessed redness/cracked skin under L breast. Tx changed: Cracked skin under L breast. Cleanse area with soap & water, pat dry, apply PRN Nystatin Cream and apply small piece of Interdry under breast until healed.
--- NOTE | 2023-04-30 13:31 | PC.NURSE ---
Recieved information that resident has noted bruising on left and right posterior hands. This automatic typewriter inspector met with resident and confirms she has bruising on these areas. Amberly does not know how the bruising occurred. Bruising pattern consistent with accidental bumping. Will continue to monitor hands for increased or additional bruising.
[2023-04-30] MEDS: MIRTAZAPINE 15 MG TABLET PO (19:35)
[2023-04-30] MEDS: MELATONIN 3 MG TABLET 5 MG PO (19:35)
[2023-05-01] MEDS: OMEPRAZOLE 20 MG CAPSULE DR PO (06:33)
[2023-05-01] MEDS: LEVOTHYROXINE 50 MCG TABLET PO (06:33)
[2023-05-01] MEDS: MAG HYDROX/ALUMINUM HYD/SIMETH 30 ML ORAL.SUSP PO (06:36)
[2023-05-01] MEDS: METOPROLOL SUCCINATE (XL) 25 MG TAB PO (08:27)
[2023-05-01] MEDS: ASPIRIN 81 MG TABLET EC PO (08:27)
[2023-05-01] MEDS: NON-FORMULARY MEDICATION INH (08:27)
[2023-05-01] MEDS: ACETAMINOPHEN 500 MG TABLET 1000 MG PO ×2 (08:27→23:06)
[2023-05-01] MEDS: METFORMIN ER 500 MG PO (08:27)
[2023-05-01] MEDS: CETIRIZINE HCL 10 MG TABLET PO (08:28)
[2023-05-01] MEDS: SERTRALINE 100 MG TABLET 150 MG PO (08:28)
[2023-05-01 09:51] VITALS: BP 138/72; PULSE 72; RESP 18; TEMP 36.4; O2SAT 94
[2023-05-01] MEDS: MIRTAZAPINE 15 MG TABLET PO (19:04)
[2023-05-01] MEDS: MELATONIN 3 MG TABLET 5 MG PO (19:04)
[2023-05-02] MEDS: NYSTATIN CREAM 30 GM 1 APPLIC TOPICAL (07:20)
[2023-05-02] MEDS: ACETAMINOPHEN 500 MG TABLET 1000 MG PO (08:09)
[2023-05-02] MEDS: METFORMIN ER 500 MG PO (08:09)
[2023-05-02] MEDS: ASPIRIN 81 MG TABLET EC PO (08:09)
[2023-05-02] MEDS: LEVOTHYROXINE 50 MCG TABLET PO (08:09)
[2023-05-02] MEDS: OMEPRAZOLE 20 MG CAPSULE DR PO (08:09)
[2023-05-02] MEDS: SERTRALINE 100 MG TABLET 150 MG PO (08:10)
[2023-05-02] MEDS: NON-FORMULARY MEDICATION INH (08:10)
[2023-05-02] MEDS: METOPROLOL SUCCINATE (XL) 25 MG TAB PO (08:10)
[2023-05-02] MEDS: CETIRIZINE HCL 10 MG TABLET PO (08:10)
[2023-05-02] MEDS: MELATONIN 3 MG TABLET 5 MG PO (20:19)
[2023-05-02] MEDS: MIRTAZAPINE 15 MG TABLET PO (20:19)
[2023-05-03] MEDS: ACETAMINOPHEN 500 MG TABLET 1000 MG PO ×3 (02:32→23:38)
[2023-05-03] MEDS: LEVOTHYROXINE 50 MCG TABLET PO (07:45)
[2023-05-03] MEDS: OMEPRAZOLE 20 MG CAPSULE DR PO (07:45)
[2023-05-03] MEDS: NON-FORMULARY MEDICATION INH (07:48)
[2023-05-03] MEDS: ASPIRIN 81 MG TABLET EC PO (08:11)
[2023-05-03] MEDS: METOPROLOL SUCCINATE (XL) 25 MG TAB PO (08:11)
[2023-05-03] MEDS: METFORMIN ER 500 MG PO (08:11)
[2023-05-03] MEDS: SERTRALINE 100 MG TABLET 150 MG PO (08:12)
[2023-05-03] MEDS: CETIRIZINE HCL 10 MG TABLET PO (08:12)
[2023-05-03] MEDS: guaiFENesin 100 MG/ML CUP PO (08:17)
[2023-05-03] MEDS: NYSTATIN CREAM 30 GM 1 APPLIC TOPICAL (11:30)
[2023-05-03] MEDS: MIRTAZAPINE 15 MG TABLET PO (19:42)
[2023-05-03] MEDS: MELATONIN 3 MG TABLET 5 MG PO (19:42)
[2023-05-04] MEDS: OMEPRAZOLE 20 MG CAPSULE DR PO (08:20)
[2023-05-04] MEDS: ASPIRIN 81 MG TABLET EC PO (08:21)
[2023-05-04] MEDS: LEVOTHYROXINE 50 MCG TABLET PO (08:21)
[2023-05-04] MEDS: ACETAMINOPHEN 500 MG TABLET 1000 MG PO ×2 (08:21→23:14)
[2023-05-04] MEDS: METFORMIN ER 500 MG PO (08:21)
[2023-05-04] MEDS: SERTRALINE 100 MG TABLET 150 MG PO (08:22)
[2023-05-04] MEDS: METOPROLOL SUCCINATE (XL) 25 MG TAB PO (08:22)
[2023-05-04] MEDS: NON-FORMULARY MEDICATION INH (08:22)
[2023-05-04] MEDS: CETIRIZINE HCL 10 MG TABLET PO (08:23)
[2023-05-04] MEDS: MELATONIN 3 MG TABLET 5 MG PO (19:03)
[2023-05-04] MEDS: MIRTAZAPINE 15 MG TABLET PO (19:03)
[2023-05-05] MEDS: OMEPRAZOLE 20 MG CAPSULE DR PO (06:43)
[2023-05-05] MEDS: LEVOTHYROXINE 50 MCG TABLET PO (06:43)
[2023-05-05] MEDS: NON-FORMULARY MEDICATION INH (07:08)
[2023-05-05] MEDS: METOPROLOL SUCCINATE (XL) 25 MG TAB PO (07:08)
[2023-05-05] MEDS: CETIRIZINE HCL 10 MG TABLET PO (07:08)
[2023-05-05] MEDS: ASPIRIN 81 MG TABLET EC PO (07:08)
[2023-05-05] MEDS: ACETAMINOPHEN 500 MG TABLET 1000 MG PO ×2 (07:08→22:59)
[2023-05-05] MEDS: METFORMIN ER 500 MG PO (07:08)
[2023-05-05] MEDS: SERTRALINE 100 MG TABLET 150 MG PO (07:08)
[2023-05-05] MEDS: guaiFENesin 100 MG/ML CUP PO (10:11)
[2023-05-05] MEDS: MAGNESIUM HYDROXIDE 30 ML ORAL.SUSP PO (16:14)
[2023-05-05] MEDS: MIRTAZAPINE 15 MG TABLET PO (19:34)
[2023-05-05] MEDS: MELATONIN 3 MG TABLET 5 MG PO (19:34)
--- NOTE | 2023-05-06 00:56 | PC.NURSE ---
Weekly Charting Week 3 Toileting and Skin. Vital signs reviewed, no concerns. Comprehensive and temporary care plan reviewed with no changes made. Resident needs one assist with toileting. Is frequently incontinent of bladder, has occasional bowel incontinence. Resident able to call light when ready to use the toile. At times? will also toilet self. Wears pull ups with insert as per her request. Pads, farhan cares, clothing managed by staff. SKIN: Redness under breast: wash, dry applied nystatin cream and InterDry. bruising in Left and Right posterior hands from accidental bumping. Skin check on bath days and during cares.
--- NOTE | 2023-05-06 07:20 | PC.NURSE ---
WEEKLY CHARTING -WEEK 3 -TOILETING & SKIN: Vital signs reviewed and noted a few episodes of elevated BP,HELICOPTER PILOT INSTRUCTOR aware and no changes made to current medication. Comprehensive and temporary care plan reviewed. No changes made. Nothing added to temporary care plan. Resident needs one assist with toileting. Is frequently incontinent of urine, has occasional bowel incontinence. Staff to check every 2 hours and PRN as resident has increase in confusion and tend to self transfer herself. Resident will also put the call light when ready to use the toilet. Ambulates to the bathroom using the walker and gait belt. At times?will also toilet self. Wears pull ups with inserts per request & comfort. Pads, farhan cares, clothing managed by staff. . Continue weekly monitoring and refer to providers as needed. Skin: Noted redness under her left breast and nystatin is applied. Staff will continue to do skin check during cares and on bath day.
[2023-05-06] MEDS: ACETAMINOPHEN 500 MG TABLET 1000 MG PO ×2 (07:50→22:59)
[2023-05-06] MEDS: OMEPRAZOLE 20 MG CAPSULE DR PO (07:50)
[2023-05-06] MEDS: METFORMIN ER 500 MG PO (07:50)
[2023-05-06] MEDS: ASPIRIN 81 MG TABLET EC PO (07:50)
[2023-05-06] MEDS: LEVOTHYROXINE 50 MCG TABLET PO (07:50)
[2023-05-06] MEDS: METOPROLOL SUCCINATE (XL) 25 MG TAB PO (07:50)
[2023-05-06] MEDS: NON-FORMULARY MEDICATION INH (07:51)
[2023-05-06] MEDS: SERTRALINE 100 MG TABLET 150 MG PO (07:51)
[2023-05-06] MEDS: CETIRIZINE HCL 10 MG TABLET PO (07:51)
--- NOTE | 2023-05-06 09:59 | PC.NURSE ---
Bowel note: Resident is refusing all bowel intervention this morning stating, I went yesterday. I'm not taking that white crap (referring to MOM). Resident also will not take prune juice when provided and encouraged.
[2023-05-06] MEDS: MIRTAZAPINE 15 MG TABLET PO (19:14)
[2023-05-06] MEDS: MELATONIN 3 MG TABLET 5 MG PO (19:14)
[2023-05-07] MEDS: NYSTATIN CREAM 30 GM 1 APPLIC TOPICAL ×2 (07:15→21:48)
[2023-05-07] MEDS: NON-FORMULARY MEDICATION PO (08:01)
[2023-05-07] MEDS: OMEPRAZOLE 20 MG CAPSULE DR PO (08:01)
[2023-05-07] MEDS: SERTRALINE 100 MG TABLET 150 MG PO (08:02)
[2023-05-07] MEDS: NON-FORMULARY MEDICATION INH (08:02)
[2023-05-07] MEDS: METOPROLOL SUCCINATE (XL) 25 MG TAB PO (08:02)
[2023-05-07] MEDS: LEVOTHYROXINE 50 MCG TABLET PO (08:02)
[2023-05-07] MEDS: ASPIRIN 81 MG TABLET EC PO (08:02)
[2023-05-07] MEDS: ACETAMINOPHEN 500 MG TABLET 1000 MG PO ×2 (08:02→23:42)
[2023-05-07] MEDS: METFORMIN ER 500 MG PO (08:02)
[2023-05-07] MEDS: CETIRIZINE HCL 10 MG TABLET PO (08:03)
[2023-05-07] MEDS: TRAMADOL HCL 50 MG TABLET PO (17:07)
[2023-05-07] MEDS: MIRTAZAPINE 15 MG TABLET PO (19:23)
[2023-05-07] MEDS: MELATONIN 3 MG TABLET 5 MG PO (19:23)
[2023-05-08] MEDS: METOPROLOL SUCCINATE (XL) 25 MG TAB PO (06:50)
[2023-05-08] MEDS: ACETAMINOPHEN 500 MG TABLET 1000 MG PO ×2 (06:50→23:27)
[2023-05-08] MEDS: NON-FORMULARY MEDICATION INH (06:50)
[2023-05-08] MEDS: OMEPRAZOLE 20 MG CAPSULE DR PO (06:50)
[2023-05-08] MEDS: LEVOTHYROXINE 50 MCG TABLET PO (06:50)
[2023-05-08] MEDS: ASPIRIN 81 MG TABLET EC PO (06:50)
[2023-05-08] MEDS: METFORMIN ER 500 MG PO (06:50)
[2023-05-08] MEDS: SERTRALINE 100 MG TABLET 150 MG PO (06:52)
[2023-05-08] MEDS: CETIRIZINE HCL 10 MG TABLET PO (06:52)
[2023-05-08] MEDS: NYSTATIN CREAM 30 GM 1 APPLIC TOPICAL (07:08)
[2023-05-08 08:00] VITALS: BP 99/67; PULSE 61; RESP 20; TEMP 37.3; O2SAT 90
[2023-05-08] MEDS: MELATONIN 3 MG TABLET 5 MG PO (19:44)
[2023-05-08] MEDS: MIRTAZAPINE 15 MG TABLET PO (19:44)
[2023-05-09] MEDS: guaiFENesin 100 MG/ML CUP PO (06:32)
[2023-05-09] MEDS: OMEPRAZOLE 20 MG CAPSULE DR PO (06:39)
[2023-05-09] MEDS: LEVOTHYROXINE 50 MCG TABLET PO (06:40)
[2023-05-09] MEDS: ACETAMINOPHEN 500 MG TABLET 1000 MG PO ×2 (07:00→23:07)
[2023-05-09] MEDS: SERTRALINE 100 MG TABLET 150 MG PO (07:01)
[2023-05-09] MEDS: ASPIRIN 81 MG TABLET EC PO (07:01)
[2023-05-09] MEDS: NON-FORMULARY MEDICATION INH (07:01)
[2023-05-09] MEDS: CETIRIZINE HCL 10 MG TABLET PO (07:01)
[2023-05-09] MEDS: METOPROLOL SUCCINATE (XL) 25 MG TAB PO (07:01)
[2023-05-09] MEDS: METFORMIN ER 500 MG PO (07:01)
[2023-05-09] MEDS: MIRTAZAPINE 15 MG TABLET PO (19:19)
[2023-05-09] MEDS: MELATONIN 3 MG TABLET 5 MG PO (19:19)
[2023-05-10] MEDS: LEVOTHYROXINE 50 MCG TABLET PO (07:18)
[2023-05-10] MEDS: ACETAMINOPHEN 500 MG TABLET 1000 MG PO ×2 (07:18→23:08)
[2023-05-10] MEDS: OMEPRAZOLE 20 MG CAPSULE DR PO (07:18)
[2023-05-10] MEDS: CETIRIZINE HCL 10 MG TABLET PO (07:19)
[2023-05-10] MEDS: SERTRALINE 100 MG TABLET 150 MG PO (07:19)
[2023-05-10] MEDS: METFORMIN ER 500 MG PO (07:19)
[2023-05-10] MEDS: METOPROLOL SUCCINATE (XL) 25 MG TAB PO (07:19)
[2023-05-10] MEDS: ASPIRIN 81 MG TABLET EC PO (07:19)
[2023-05-10] MEDS: NON-FORMULARY MEDICATION INH (07:19)
[2023-05-10] MEDS: MELATONIN 3 MG TABLET 5 MG PO (19:23)
[2023-05-10] MEDS: MIRTAZAPINE 15 MG TABLET PO (19:23)
[2023-05-11] MEDS: ACETAMINOPHEN 500 MG TABLET 1000 MG PO ×2 (07:10→23:11)
[2023-05-11] MEDS: LEVOTHYROXINE 50 MCG TABLET PO (07:10)
[2023-05-11] MEDS: OMEPRAZOLE 20 MG CAPSULE DR PO (07:10)
[2023-05-11] MEDS: ASPIRIN 81 MG TABLET EC PO (07:11)
[2023-05-11] MEDS: SERTRALINE 100 MG TABLET 150 MG PO (07:12)
[2023-05-11] MEDS: METFORMIN ER 500 MG PO (07:12)
[2023-05-11] MEDS: CETIRIZINE HCL 10 MG TABLET PO (07:12)
[2023-05-11] MEDS: NON-FORMULARY MEDICATION INH (07:12)
[2023-05-11] MEDS: METOPROLOL SUCCINATE (XL) 25 MG TAB PO (07:12)
[2023-05-11] MEDS: MIRTAZAPINE 15 MG TABLET PO (19:25)
[2023-05-11] MEDS: MELATONIN 3 MG TABLET 5 MG PO (19:25)
[2023-05-12] MEDS: LEVOTHYROXINE 50 MCG TABLET PO (07:00)
[2023-05-12] MEDS: ASPIRIN 81 MG TABLET EC PO (07:00)
[2023-05-12] MEDS: ACETAMINOPHEN 500 MG TABLET 1000 MG PO ×2 (07:00→23:25)
[2023-05-12] MEDS: NON-FORMULARY MEDICATION INH (07:00)
[2023-05-12] MEDS: METFORMIN ER 500 MG PO (07:00)
[2023-05-12] MEDS: OMEPRAZOLE 20 MG CAPSULE DR PO (07:00)
[2023-05-12] MEDS: METOPROLOL SUCCINATE (XL) 25 MG TAB PO (07:00)
[2023-05-12] MEDS: SERTRALINE 100 MG TABLET 150 MG PO (07:01)
[2023-05-12] MEDS: CETIRIZINE HCL 10 MG TABLET PO (07:01)
[2023-05-12] MEDS: MELATONIN 3 MG TABLET 5 MG PO (19:17)
[2023-05-12] MEDS: MIRTAZAPINE 15 MG TABLET PO (19:17)
--- NOTE | 2023-05-13 03:49 | PC.NURSE ---
WEEKLY CHARTING WEEK 4 : COMMUNICATION, HEARING/VISION,COGNITION/BEHAVIORS Vital signs review, occasional elevated BP noted, continue to monitor weekly, update RUBBER BOOTS AND SHOES REPAIRER as needed.? Resident has had increase of agitation and confusion at night time ; getting up and will turn the alarm off before staff get to her room. Zoloft increased to 150 mg recently for increase agitation and Remeron 15 mg at HS with no side effects noted. She is able to communicate needs, staff also anticipated needs. She has hearing impairment with bilateral hearing aid ; Has cognitive impairment due to Dementia. All medications administered by licence nurse, her health condition is stable.
--- NOTE | 2023-05-13 06:35 | PC.NURSE ---
Weekly Charting- Week 4: Vital signs reviewed with no concerns noted over the last week. B/P elevated at times though resident has no hypertensive symptoms reported. Nursing to continue to monitor vital signs as ordered and update provider with concerns. Temporary and comprehensive care plans have been reviewed with no changes made. Resident is currently taking Remeron 15 mg at HS and Sertraline 150 mg daily with no adverse side effects noted. Resident has had multiple documented behaviors noted within the last month: Multiple episodes of yelling and swearing at staff, one episode of kicking at staff, multiple episodes of resident self-transferring and shutting her own bed and chair alarms off and refusing DARIN cares. Resident has cognitive impairment due to dementia. Hearing impairment corrected with bilateral hearing aids worn and vision impairment corrected with glasses. All medications are administered by licensed nurse with no adverse effects noted. No changes in chronic health conditions.
[2023-05-13] MEDS: ACETAMINOPHEN 500 MG TABLET 1000 MG PO ×2 (07:17→23:26)
[2023-05-13] MEDS: METFORMIN ER 500 MG PO (07:17)
[2023-05-13] MEDS: OMEPRAZOLE 20 MG CAPSULE DR PO (07:17)
[2023-05-13] MEDS: ASPIRIN 81 MG TABLET EC PO (07:17)
[2023-05-13] MEDS: METOPROLOL SUCCINATE (XL) 25 MG TAB PO (07:17)
[2023-05-13] MEDS: LEVOTHYROXINE 50 MCG TABLET PO (07:17)
[2023-05-13] MEDS: NON-FORMULARY MEDICATION INH (07:18)
[2023-05-13] MEDS: SERTRALINE 100 MG TABLET 150 MG PO (07:19)
[2023-05-13] MEDS: CETIRIZINE HCL 10 MG TABLET PO (07:19)
[2023-05-13] MEDS: MIRTAZAPINE 15 MG TABLET PO (19:10)
[2023-05-13] MEDS: MELATONIN 3 MG TABLET 5 MG PO (19:10)
[2023-05-14] MEDS: NON-FORMULARY MEDICATION PO (05:45)
[2023-05-14] MEDS: LEVOTHYROXINE 50 MCG TABLET PO (08:05)
[2023-05-14] MEDS: ACETAMINOPHEN 500 MG TABLET 1000 MG PO ×2 (08:05→22:53)
[2023-05-14] MEDS: METOPROLOL SUCCINATE (XL) 25 MG TAB PO (08:05)
[2023-05-14] MEDS: OMEPRAZOLE 20 MG CAPSULE DR PO (08:05)
[2023-05-14] MEDS: METFORMIN ER 500 MG PO (08:05)
[2023-05-14] MEDS: ASPIRIN 81 MG TABLET EC PO (08:05)
[2023-05-14] MEDS: NON-FORMULARY MEDICATION INH (08:06)
[2023-05-14] MEDS: SERTRALINE 100 MG TABLET 150 MG PO (08:07)
[2023-05-14] MEDS: CETIRIZINE HCL 10 MG TABLET PO (08:07)
[2023-05-14] MEDS: MELATONIN 3 MG TABLET 5 MG PO (19:08)
[2023-05-14] MEDS: MIRTAZAPINE 15 MG TABLET PO (19:08)
--- NOTE | 2023-05-14 22:50 | PC.NURSE ---
Verbal Order: Discontinue Aspirin 81mg PO daily. Discontinue Ondansetron 4mg PO 8HR PRN per Genesis Cain CNP.
[2023-05-15] MEDS: METOPROLOL SUCCINATE (XL) 25 MG TAB PO (07:05)
[2023-05-15] MEDS: OMEPRAZOLE 20 MG CAPSULE DR PO (07:05)
[2023-05-15] MEDS: METFORMIN ER 500 MG PO (07:05)
[2023-05-15] MEDS: ACETAMINOPHEN 500 MG TABLET 1000 MG PO ×2 (07:05→23:07)
[2023-05-15] MEDS: CETIRIZINE HCL 10 MG TABLET PO (07:05)
[2023-05-15] MEDS: LEVOTHYROXINE 50 MCG TABLET PO (07:05)
[2023-05-15] MEDS: SERTRALINE 100 MG TABLET 150 MG PO (07:05)
[2023-05-15] MEDS: NON-FORMULARY MEDICATION INH (07:05)
[2023-05-15 09:39] VITALS: BP 126/72; PULSE 74; RESP 18; TEMP 36.6; O2SAT 96
[2023-05-15] MEDS: MELATONIN 3 MG TABLET 5 MG PO (19:59)
[2023-05-15] MEDS: MIRTAZAPINE 15 MG TABLET PO (19:59)
[2023-05-16] MEDS: LEVOTHYROXINE 50 MCG TABLET PO (07:10)
[2023-05-16] MEDS: OMEPRAZOLE 20 MG CAPSULE DR PO (07:10)
[2023-05-16] MEDS: METOPROLOL SUCCINATE (XL) 25 MG TAB PO (07:10)
[2023-05-16] MEDS: METFORMIN ER 500 MG PO (07:10)
[2023-05-16] MEDS: ACETAMINOPHEN 500 MG TABLET 1000 MG PO ×2 (07:10→23:28)
[2023-05-16] MEDS: NON-FORMULARY MEDICATION INH (07:11)
[2023-05-16] MEDS: SERTRALINE 100 MG TABLET 150 MG PO (07:11)
[2023-05-16] MEDS: CETIRIZINE HCL 10 MG TABLET PO (07:11)
[2023-05-16] MEDS: MELATONIN 3 MG TABLET 5 MG PO (19:18)
[2023-05-16] MEDS: MIRTAZAPINE 15 MG TABLET PO (19:18)
[2023-05-17] MEDS: LEVOTHYROXINE 50 MCG TABLET PO (07:39)
[2023-05-17] MEDS: OMEPRAZOLE 20 MG CAPSULE DR PO (07:39)
[2023-05-17] MEDS: ACETAMINOPHEN 500 MG TABLET 1000 MG PO ×2 (07:39→23:43)
[2023-05-17] MEDS: SERTRALINE 100 MG TABLET 150 MG PO (07:40)
[2023-05-17] MEDS: NON-FORMULARY MEDICATION INH (07:40)
[2023-05-17] MEDS: METOPROLOL SUCCINATE (XL) 25 MG TAB PO (07:40)
[2023-05-17] MEDS: METFORMIN ER 500 MG PO (07:40)
[2023-05-17] MEDS: CETIRIZINE HCL 10 MG TABLET PO (07:40)
--- NOTE | 2023-05-17 11:44 | PC.NURSE ---
Bowel note: Resident refusing PRN suppository for bowel intervention for day 3 bowel protocol. When commercial lines underwriter approached resident asking about last BM to confirm correct date she became upset and raised voice stating, I just went yesterday! I get so sick of this. Resident currently refusing bowel intervention.
[2023-05-17] MEDS: MELATONIN 3 MG TABLET 5 MG PO (19:06)
[2023-05-17] MEDS: MIRTAZAPINE 15 MG TABLET PO (19:06)
[2023-05-18] MEDS: LEVOTHYROXINE 50 MCG TABLET PO (07:10)
[2023-05-18] MEDS: METFORMIN ER 500 MG PO (07:10)
[2023-05-18] MEDS: METOPROLOL SUCCINATE (XL) 25 MG TAB PO (07:10)
[2023-05-18] MEDS: ACETAMINOPHEN 500 MG TABLET 1000 MG PO ×2 (07:10→23:33)
[2023-05-18] MEDS: OMEPRAZOLE 20 MG CAPSULE DR PO (07:10)
[2023-05-18] MEDS: SERTRALINE 100 MG TABLET 150 MG PO (07:11)
[2023-05-18] MEDS: CETIRIZINE HCL 10 MG TABLET PO (07:11)
[2023-05-18] MEDS: NON-FORMULARY MEDICATION INH (07:11)
[2023-05-18] MEDS: MIRTAZAPINE 15 MG TABLET PO (19:41)
[2023-05-18] MEDS: MELATONIN 3 MG TABLET 5 MG PO (19:41)
[2023-05-19] MEDS: OMEPRAZOLE 20 MG CAPSULE DR PO (06:59)
[2023-05-19] MEDS: NON-FORMULARY MEDICATION INH (06:59)
[2023-05-19] MEDS: ACETAMINOPHEN 500 MG TABLET 1000 MG PO ×2 (06:59→23:07)
[2023-05-19] MEDS: LEVOTHYROXINE 50 MCG TABLET PO (06:59)
[2023-05-19] MEDS: METOPROLOL SUCCINATE (XL) 25 MG TAB PO (06:59)
[2023-05-19] MEDS: METFORMIN ER 500 MG PO (06:59)
[2023-05-19] MEDS: CETIRIZINE HCL 10 MG TABLET PO (07:00)
[2023-05-19] MEDS: SERTRALINE 100 MG TABLET 150 MG PO (07:00)
--- NOTE | 2023-05-19 14:44 | PC.PHA1 ---
[facility] PHARMACIST'S MEDICATION REVIEW: MEDICATION MONITORING:Sertraline 150 mg daily, Mirtazapine 15 mg HS IRREGULARITY OR COMMENTS:Patient has been on edge with staff inquiring about her bowel movements. She has refused milk of mag. standing order, expressing dislike for medication. Patient has history of needing lorazepam at hs prior to admission to [facility], therefore GDR of her current above listed medications is clinically contraindicated. SUGGESTED COURSE OF ACTION TAKEN:Could we offer scheduled order of senna 1 tab bid or hs?
[2023-05-19] MEDS: MELATONIN 3 MG TABLET 5 MG PO (19:28)
[2023-05-19] MEDS: MIRTAZAPINE 15 MG TABLET PO (19:28)
[2023-05-20] MEDS: METOPROLOL SUCCINATE (XL) 25 MG TAB PO (07:23)
[2023-05-20] MEDS: LEVOTHYROXINE 50 MCG TABLET PO (07:23)
[2023-05-20] MEDS: METFORMIN ER 500 MG PO (07:23)
[2023-05-20] MEDS: ACETAMINOPHEN 500 MG TABLET 1000 MG PO ×2 (07:23→22:58)
[2023-05-20] MEDS: OMEPRAZOLE 20 MG CAPSULE DR PO (07:23)
[2023-05-20] MEDS: SERTRALINE 100 MG TABLET 150 MG PO (07:24)
[2023-05-20] MEDS: CETIRIZINE HCL 10 MG TABLET PO (07:24)
[2023-05-20] MEDS: NON-FORMULARY MEDICATION INH (07:25)
[2023-05-20] MEDS: MELATONIN 3 MG TABLET 5 MG PO (19:13)
[2023-05-20] MEDS: MIRTAZAPINE 15 MG TABLET PO (19:13)
[2023-05-21] MEDS: NON-FORMULARY MEDICATION PO (07:07)
[2023-05-21] MEDS: LEVOTHYROXINE 50 MCG TABLET PO (07:08)
[2023-05-21] MEDS: OMEPRAZOLE 20 MG CAPSULE DR PO (07:08)
[2023-05-21] MEDS: ACETAMINOPHEN 500 MG TABLET 1000 MG PO ×2 (07:08→23:39)
[2023-05-21] MEDS: METOPROLOL SUCCINATE (XL) 25 MG TAB PO (07:09)
[2023-05-21] MEDS: SERTRALINE 100 MG TABLET 150 MG PO (07:09)
[2023-05-21] MEDS: METFORMIN ER 500 MG PO (07:09)
[2023-05-21] MEDS: NON-FORMULARY MEDICATION INH (07:09)
[2023-05-21] MEDS: CETIRIZINE HCL 10 MG TABLET PO (07:10)
[2023-05-21] MEDS: MELATONIN 3 MG TABLET 5 MG PO (19:51)
[2023-05-21] MEDS: MIRTAZAPINE 15 MG TABLET PO (19:51)
[2023-05-22] MEDS: METOPROLOL SUCCINATE (XL) 25 MG TAB PO (07:30)
[2023-05-22] MEDS: ACETAMINOPHEN 500 MG TABLET 1000 MG PO ×2 (07:30→23:09)
[2023-05-22] MEDS: NON-FORMULARY MEDICATION INH (07:30)
[2023-05-22] MEDS: METFORMIN ER 500 MG PO (07:30)
[2023-05-22] MEDS: OMEPRAZOLE 20 MG CAPSULE DR PO (07:30)
[2023-05-22] MEDS: LEVOTHYROXINE 50 MCG TABLET PO (07:30)
[2023-05-22] MEDS: SERTRALINE 100 MG TABLET 150 MG PO (07:31)
[2023-05-22] MEDS: CETIRIZINE HCL 10 MG TABLET PO (07:31)
[2023-05-22 10:00] VITALS: BP 142/69; PULSE 79; RESP 18; TEMP 36.7; O2SAT 97
[2023-05-22] MEDS: MIRTAZAPINE 15 MG TABLET PO (20:33)
[2023-05-22] MEDS: MELATONIN 3 MG TABLET 5 MG PO (20:33)
[2023-05-23] MEDS: NON-FORMULARY MEDICATION INH (07:00)
[2023-05-23] MEDS: ACETAMINOPHEN 500 MG TABLET 1000 MG PO ×2 (07:00→23:45)
[2023-05-23] MEDS: METOPROLOL SUCCINATE (XL) 25 MG TAB PO (07:00)
[2023-05-23] MEDS: METFORMIN ER 500 MG PO (07:00)
[2023-05-23] MEDS: OMEPRAZOLE 20 MG CAPSULE DR PO (07:00)
[2023-05-23] MEDS: LEVOTHYROXINE 50 MCG TABLET PO (07:00)
[2023-05-23] MEDS: CETIRIZINE HCL 10 MG TABLET PO (07:01)
[2023-05-23] MEDS: SERTRALINE 100 MG TABLET 150 MG PO (07:01)
[2023-05-23] MEDS: MIRTAZAPINE 15 MG TABLET PO (20:18)
[2023-05-23] MEDS: MELATONIN 3 MG TABLET 5 MG PO (20:18)
[2023-05-24] MEDS: METOPROLOL SUCCINATE (XL) 25 MG TAB PO (07:09)
[2023-05-24] MEDS: OMEPRAZOLE 20 MG CAPSULE DR PO (07:09)
[2023-05-24] MEDS: METFORMIN ER 500 MG PO (07:09)
[2023-05-24] MEDS: ACETAMINOPHEN 500 MG TABLET 1000 MG PO (07:09)
[2023-05-24] MEDS: LEVOTHYROXINE 50 MCG TABLET PO (07:09)
[2023-05-24] MEDS: SERTRALINE 100 MG TABLET 150 MG PO (07:10)
[2023-05-24] MEDS: NON-FORMULARY MEDICATION INH (07:10)
[2023-05-24] MEDS: CETIRIZINE HCL 10 MG TABLET PO (07:10)
[2023-05-24] MEDS: MIRTAZAPINE 15 MG TABLET PO (19:32)
[2023-05-24] MEDS: MELATONIN 3 MG TABLET 5 MG PO (19:32)
[2023-05-25] MEDS: OMEPRAZOLE 20 MG CAPSULE DR PO (07:18)
[2023-05-25] MEDS: LEVOTHYROXINE 50 MCG TABLET PO (07:18)
[2023-05-25] MEDS: ACETAMINOPHEN 500 MG TABLET 1000 MG PO ×2 (07:18→23:02)
[2023-05-25] MEDS: SERTRALINE 100 MG TABLET 150 MG PO (07:19)
[2023-05-25] MEDS: CETIRIZINE HCL 10 MG TABLET PO (07:19)
[2023-05-25] MEDS: NON-FORMULARY MEDICATION INH (07:19)
[2023-05-25] MEDS: METFORMIN ER 500 MG PO (07:19)
[2023-05-25] MEDS: METOPROLOL SUCCINATE (XL) 25 MG TAB PO (07:19)
[2023-05-25] MEDS: MIRTAZAPINE 15 MG TABLET PO (19:20)
[2023-05-25] MEDS: MELATONIN 3 MG TABLET 5 MG PO (19:20)
[2023-05-26] MEDS: LEVOTHYROXINE 50 MCG TABLET PO (07:25)
[2023-05-26] MEDS: OMEPRAZOLE 20 MG CAPSULE DR PO (07:25)
[2023-05-26] MEDS: NON-FORMULARY MEDICATION INH (08:20)
[2023-05-26] MEDS: ACETAMINOPHEN 500 MG TABLET 1000 MG PO ×2 (08:20→23:41)
[2023-05-26] MEDS: METFORMIN ER 500 MG PO (08:20)
[2023-05-26] MEDS: METOPROLOL SUCCINATE (XL) 25 MG TAB PO (08:20)
[2023-05-26] MEDS: CETIRIZINE HCL 10 MG TABLET PO (08:20)
[2023-05-26] MEDS: SERTRALINE 100 MG TABLET 150 MG PO (08:20)
--- NOTE | 2023-05-26 15:05 | PC.SPIRITC ---
I provided visit for support and connection.
[2023-05-26] MEDS: MIRTAZAPINE 15 MG TABLET PO (19:53)
[2023-05-26] MEDS: MELATONIN 3 MG TABLET 5 MG PO (19:53)
--- NOTE | 2023-05-27 03:44 | PC.NURSE ---
WEEKLY CHARTING WEEK 1 : PAIN AND ADL`S Vital signs reviewed, no concerns.Continue weekly monitoring and refer to provider as needed. Comprehensive care plan reviewed, no changes made. Temporary care plan, diet changed to regular, still thin liquid. Resident needs extensive assist of one with dressing and bathing. Limited assist with grooming ; can do oral cares after staff set up. Staff assist/complete as needed. Independent with feeding after set up ;No problems with chewing/swallowing . Pain: resident has chronic back pain? managed with Tylenol 1000mg BID at 0800, 2300. Tramadol 50mg Q8H PRN was ordered on 03/24/23. Resident tends to refuse Tylenol stating it is not helping and wants something else. She voices pain, staff do anticipate.
[2023-05-27] MEDS: OMEPRAZOLE 20 MG CAPSULE DR PO (06:56)
[2023-05-27] MEDS: LEVOTHYROXINE 50 MCG TABLET PO (06:56)
[2023-05-27] MEDS: METOPROLOL SUCCINATE (XL) 25 MG TAB PO (07:58)
[2023-05-27] MEDS: METFORMIN ER 500 MG PO (07:58)
[2023-05-27] MEDS: ACETAMINOPHEN 500 MG TABLET 1000 MG PO ×2 (07:58→23:57)
[2023-05-27] MEDS: CETIRIZINE HCL 10 MG TABLET PO (07:59)
[2023-05-27] MEDS: SERTRALINE 100 MG TABLET 150 MG PO (07:59)
[2023-05-27] MEDS: NON-FORMULARY MEDICATION INH (07:59)
--- NOTE | 2023-05-27 10:57 | PC.NURSE ---
Weekly Charting, Week 1-ADL's: Comprehensive and temporary care plan reviewed. No changes made. Nothing added to temporary care plan. Resident needs extensive assist with dressing and bathing. Limited to extensive assist with grooming. Encourage resident to participate as able. Does oral cares after staff set up. Staff assist/complete as needed. Independent with feeding after set up. Is on regular diet, regular texture,thin liquids. No problems with chewing/swallowing noted. Vital signs reviewed, no concerns. Continue weekly monitoring & refer to provider as needed. Pain: Has chronic back pain? managed with Tylenol 1000mg BID @08, & 23. Has an order for Ultram 50mg Q8H. She can tell when in pain? and staff also anticipates.
[2023-05-27] MEDS: MIRTAZAPINE 15 MG TABLET PO (19:15)
[2023-05-27] MEDS: MELATONIN 3 MG TABLET 5 MG PO (19:15)
[2023-05-28] MEDS: NON-FORMULARY MEDICATION PO (05:02)
[2023-05-28] MEDS: NON-FORMULARY MEDICATION INH (07:01)
[2023-05-28] MEDS: METOPROLOL SUCCINATE (XL) 25 MG TAB PO (07:01)
[2023-05-28] MEDS: METFORMIN ER 500 MG PO (07:01)
[2023-05-28] MEDS: ACETAMINOPHEN 500 MG TABLET 1000 MG PO ×2 (07:01→23:48)
[2023-05-28] MEDS: OMEPRAZOLE 20 MG CAPSULE DR PO (07:01)
[2023-05-28] MEDS: LEVOTHYROXINE 50 MCG TABLET PO (07:01)
[2023-05-28] MEDS: CETIRIZINE HCL 10 MG TABLET PO (07:02)
[2023-05-28] MEDS: SERTRALINE 100 MG TABLET 150 MG PO (07:02)
[2023-05-28] MEDS: MIRTAZAPINE 15 MG TABLET PO (19:18)
[2023-05-28] MEDS: MELATONIN 3 MG TABLET 5 MG PO (19:18)
[2023-05-29] MEDS: ACETAMINOPHEN 500 MG TABLET 1000 MG PO ×2 (07:40→23:11)
[2023-05-29] MEDS: LEVOTHYROXINE 50 MCG TABLET PO (07:40)
[2023-05-29] MEDS: NON-FORMULARY MEDICATION INH (07:40)
[2023-05-29] MEDS: METFORMIN ER 500 MG PO (07:40)
[2023-05-29] MEDS: OMEPRAZOLE 20 MG CAPSULE DR PO (07:40)
[2023-05-29] MEDS: METOPROLOL SUCCINATE (XL) 25 MG TAB PO (07:40)
[2023-05-29] MEDS: SERTRALINE 100 MG TABLET 150 MG PO (07:41)
[2023-05-29] MEDS: CETIRIZINE HCL 10 MG TABLET PO (07:41)
[2023-05-29 10:15] VITALS: BP 132/76; PULSE 66; RESP 18; TEMP 36.4; O2SAT 97
[2023-05-29] MEDS: MIRTAZAPINE 15 MG TABLET PO (19:24)
[2023-05-29] MEDS: MELATONIN 3 MG TABLET 5 MG PO (19:24)
[2023-05-30] MEDS: OMEPRAZOLE 20 MG CAPSULE DR PO (07:23)
[2023-05-30] MEDS: ACETAMINOPHEN 500 MG TABLET 1000 MG PO ×2 (07:23→23:05)
[2023-05-30] MEDS: LEVOTHYROXINE 50 MCG TABLET PO (07:23)
[2023-05-30] MEDS: SERTRALINE 100 MG TABLET 150 MG PO (07:24)
[2023-05-30] MEDS: METOPROLOL SUCCINATE (XL) 25 MG TAB PO (07:24)
[2023-05-30] MEDS: CETIRIZINE HCL 10 MG TABLET PO (07:24)
[2023-05-30] MEDS: NON-FORMULARY MEDICATION INH (07:24)
[2023-05-30] MEDS: METFORMIN ER 500 MG PO (07:24)
[2023-05-30] MEDS: MELATONIN 3 MG TABLET 5 MG PO (19:12)
[2023-05-30] MEDS: MIRTAZAPINE 15 MG TABLET PO (19:12)
[2023-05-31] MEDS: NON-FORMULARY MEDICATION INH (08:30)
[2023-05-31] MEDS: ACETAMINOPHEN 500 MG TABLET 1000 MG PO ×2 (08:30→22:56)
[2023-05-31] MEDS: LEVOTHYROXINE 50 MCG TABLET PO (08:30)
[2023-05-31] MEDS: METOPROLOL SUCCINATE (XL) 25 MG TAB PO (08:30)
[2023-05-31] MEDS: METFORMIN ER 500 MG PO (08:30)
[2023-05-31] MEDS: OMEPRAZOLE 20 MG CAPSULE DR PO (08:30)
[2023-05-31] MEDS: CETIRIZINE HCL 10 MG TABLET PO (08:31)
[2023-05-31] MEDS: SERTRALINE 100 MG TABLET 150 MG PO (08:31)
[2023-05-31] MEDS: MELATONIN 3 MG TABLET 5 MG PO (20:02)
[2023-05-31] MEDS: MIRTAZAPINE 15 MG TABLET PO (20:02)
--- NOTE | 2023-06-01 00:19 | PC.NURSE ---
Behavior: Resident did have an episode of visual hallucination at , refusing staff assist into bed stating there are bugs and ants all over the floor and in her bed and she is afraid it might crawl all over her when she get in bed, redirected and reassure by Administrative Support Technician, assisted into bed with no further hallucination episode.
[2023-06-01] MEDS: guaiFENesin 100 MG/ML CUP PO (07:12)
[2023-06-01] MEDS: ALBUTEROL SULFATE 1.25 MG/3 ML VIAL.NEB 2.5 MG NEB (07:20)
[2023-06-01] MEDS: METFORMIN ER 500 MG PO (07:34)
[2023-06-01] MEDS: LEVOTHYROXINE 50 MCG TABLET PO (07:34)
[2023-06-01] MEDS: METOPROLOL SUCCINATE (XL) 25 MG TAB PO (07:34)
[2023-06-01] MEDS: OMEPRAZOLE 20 MG CAPSULE DR PO (07:34)
[2023-06-01] MEDS: NON-FORMULARY MEDICATION INH (07:34)
[2023-06-01] MEDS: ACETAMINOPHEN 500 MG TABLET 1000 MG PO ×2 (07:34→23:10)
[2023-06-01] MEDS: CETIRIZINE HCL 10 MG TABLET PO (07:35)
[2023-06-01] MEDS: SERTRALINE 100 MG TABLET 150 MG PO (07:35)
--- NOTE | 2023-06-01 09:13 | PC.NURSE ---
Resident was having bad a episode of cough with slight wheezing while toileting. PRN dose of cough syrup was given at 0700 and Albuterol inhaler was given at 0720 which was very effective.
[2023-06-01] MEDS: MIRTAZAPINE 15 MG TABLET PO (19:14)
[2023-06-01] MEDS: MELATONIN 3 MG TABLET 5 MG PO (19:14)
[2023-06-02] MEDS: METFORMIN ER 500 MG PO (07:00)
[2023-06-02] MEDS: ACETAMINOPHEN 500 MG TABLET 1000 MG PO ×2 (07:00→23:30)
[2023-06-02] MEDS: LEVOTHYROXINE 50 MCG TABLET PO (07:00)
[2023-06-02] MEDS: SERTRALINE 100 MG TABLET 150 MG PO (07:00)
[2023-06-02] MEDS: OMEPRAZOLE 20 MG CAPSULE DR PO (07:00)
[2023-06-02] MEDS: NON-FORMULARY MEDICATION INH (07:00)
[2023-06-02] MEDS: CETIRIZINE HCL 10 MG TABLET PO (07:00)
[2023-06-02] MEDS: METOPROLOL SUCCINATE (XL) 25 MG TAB PO (07:00)
[2023-06-02] MEDS: MIRTAZAPINE 15 MG TABLET PO (19:40)
[2023-06-02] MEDS: MELATONIN 3 MG TABLET 5 MG PO (19:40)
--- NOTE | 2023-06-03 01:36 | PC.NURSE ---
Weekly Charting Week 2: Mobility Vital signs reviewed with no concerns. Comprehensive and temporary care plan reviewed with no changes made. Resident needs one staff assist of bed mobility. Has? (L) 1/4 side rail up at all times as an enabler for bed mobility. Resident needs one assist with transfer and ambulation with gait belt use. Resident able to ambulate up to 200ft with 1-2 staff, limited to extensive assist follow with wheelchair if needed d/t weakness. Encourage to ambulate to and from meals and in her room as tolerated. Is able to self propel. Staff assist to longer distances and destinations. Fall: No falls the past month. Remains a high fall risk according to assessment done on 04/10/23. Fall interventions: Frequent check, call light within reach, bed in low position with brakes locked, has bed/chair alarm, non skid footwear, not to be left alone in bathroom, falling star magnet for staff awareness , w/c locked at bedside.
[2023-06-03] MEDS: METFORMIN ER 500 MG PO (07:04)
[2023-06-03] MEDS: OMEPRAZOLE 20 MG CAPSULE DR PO (07:04)
[2023-06-03] MEDS: LEVOTHYROXINE 50 MCG TABLET PO (07:04)
[2023-06-03] MEDS: ACETAMINOPHEN 500 MG TABLET 1000 MG PO ×2 (07:04→23:00)
[2023-06-03] MEDS: METOPROLOL SUCCINATE (XL) 25 MG TAB PO (07:04)
[2023-06-03] MEDS: NON-FORMULARY MEDICATION INH (07:04)
[2023-06-03] MEDS: CETIRIZINE HCL 10 MG TABLET PO (07:05)
[2023-06-03] MEDS: SERTRALINE 100 MG TABLET 150 MG PO (07:05)
--- NOTE | 2023-06-03 07:49 | PC.NURSE ---
Weekly Charting, Week 2 - Mobility: Comprehensive and temporary care plan reviewed. No changes made, nothing added to temporary care plan. Resident needs one assist, gait belt, 4wwalker with transfers and ambulation. Will often self transfers. Is able to self propel. Staff assist to longer distances and destinations. Needs assist with turning and positioning.? (L) 1/4 side rail up at all times as an enabler for bed mobility. Vital signs reviewed, no concerns. Continue weekly monitoring and refer to provider as needed. Fall: No falls the past month. Remains a high fall risk according to assessment done on 04/10/23. Fall interventions: Call light within reach, bed in low position with brakes locked, bed/chair alarm, non skid footwear, not to be left alone in bathroom, falling star magnet, w/c locked at bedside.
[2023-06-03] MEDS: MELATONIN 3 MG TABLET 5 MG PO (20:00)
[2023-06-03] MEDS: MIRTAZAPINE 15 MG TABLET PO (20:00)
[2023-06-04] MEDS: NON-FORMULARY MEDICATION PO (06:12)
[2023-06-04] MEDS: LEVOTHYROXINE 50 MCG TABLET PO (06:13)
[2023-06-04] MEDS: OMEPRAZOLE 20 MG CAPSULE DR PO (06:13)
[2023-06-04] MEDS: ACETAMINOPHEN 500 MG TABLET 1000 MG PO ×2 (06:20→23:54)
[2023-06-04] MEDS: SERTRALINE 100 MG TABLET 150 MG PO (07:16)
[2023-06-04] MEDS: METOPROLOL SUCCINATE (XL) 25 MG TAB PO (07:16)
[2023-06-04] MEDS: METFORMIN ER 500 MG PO (07:16)
[2023-06-04] MEDS: CETIRIZINE HCL 10 MG TABLET PO (07:17)
[2023-06-04] MEDS: NON-FORMULARY MEDICATION INH (07:18)
[2023-06-04] MEDS: MELATONIN 3 MG TABLET 5 MG PO (19:29)
[2023-06-04] MEDS: MIRTAZAPINE 15 MG TABLET PO (19:29)
[2023-06-05] MEDS: OMEPRAZOLE 20 MG CAPSULE DR PO (07:26)
[2023-06-05] MEDS: LEVOTHYROXINE 50 MCG TABLET PO (07:26)
[2023-06-05] MEDS: TRAMADOL HCL 50 MG TABLET PO (07:26)
[2023-06-05] MEDS: METOPROLOL SUCCINATE (XL) 25 MG TAB PO (07:30)
[2023-06-05] MEDS: SERTRALINE 100 MG TABLET 150 MG PO (07:30)
[2023-06-05] MEDS: ACETAMINOPHEN 500 MG TABLET 1000 MG PO (07:30)
[2023-06-05] MEDS: METFORMIN ER 500 MG PO (07:30)
[2023-06-05] MEDS: CETIRIZINE HCL 10 MG TABLET PO (07:30)
[2023-06-05] MEDS: NON-FORMULARY MEDICATION INH (07:30)
[2023-06-05 13:00] VITALS: BP 116/62; PULSE 78; RESP 18; TEMP 36.3; O2SAT 93
[2023-06-05] MEDS: MELATONIN 3 MG TABLET 5 MG PO (19:49)
[2023-06-05] MEDS: MIRTAZAPINE 15 MG TABLET PO (19:49)
[2023-06-06] MEDS: ACETAMINOPHEN 500 MG TABLET 1000 MG PO ×3 (00:20→23:03)
[2023-06-06] MEDS: TRAMADOL HCL 50 MG TABLET PO (05:01)
[2023-06-06] MEDS: METFORMIN ER 500 MG PO (07:20)
[2023-06-06] MEDS: NON-FORMULARY MEDICATION INH (07:20)
[2023-06-06] MEDS: METOPROLOL SUCCINATE (XL) 25 MG TAB PO (07:20)
[2023-06-06] MEDS: OMEPRAZOLE 20 MG CAPSULE DR PO (07:20)
[2023-06-06] MEDS: LEVOTHYROXINE 50 MCG TABLET PO (07:20)
[2023-06-06] MEDS: SERTRALINE 100 MG TABLET 150 MG PO (07:21)
[2023-06-06] MEDS: CETIRIZINE HCL 10 MG TABLET PO (07:21)
[2023-06-06] MEDS: MAGNESIUM HYDROXIDE 30 ML ORAL.SUSP PO (16:29)
[2023-06-06] MEDS: MIRTAZAPINE 15 MG TABLET PO (19:23)
[2023-06-06] MEDS: MELATONIN 3 MG TABLET 5 MG PO (19:23)
[2023-06-07] MEDS: TRAMADOL HCL 50 MG TABLET PO (05:10)
[2023-06-07] MEDS: ACETAMINOPHEN 500 MG TABLET 1000 MG PO ×2 (07:05→23:26)
[2023-06-07] MEDS: OMEPRAZOLE 20 MG CAPSULE DR PO (07:05)
[2023-06-07] MEDS: METFORMIN ER 500 MG PO (07:05)
[2023-06-07] MEDS: LEVOTHYROXINE 50 MCG TABLET PO (07:05)
[2023-06-07] MEDS: NON-FORMULARY MEDICATION INH (07:06)
[2023-06-07] MEDS: METOPROLOL SUCCINATE (XL) 25 MG TAB PO (07:06)
[2023-06-07] MEDS: CETIRIZINE HCL 10 MG TABLET PO (07:07)
[2023-06-07] MEDS: SERTRALINE 100 MG TABLET 150 MG PO (07:07)
[2023-06-07] MEDS: MIRTAZAPINE 15 MG TABLET PO (19:50)
[2023-06-07] MEDS: MELATONIN 3 MG TABLET 5 MG PO (19:50)
--- NOTE | 2023-06-07 21:21 | PC.NURSE ---
Resident reports seeing moving bugs on her room floor and on her bed sheets. Environmental Law Professor did not see any bugs on floor or on bed sheets. Resident easily redirected.
[2023-06-08] MEDS: OMEPRAZOLE 20 MG CAPSULE DR PO (07:15)
[2023-06-08] MEDS: LEVOTHYROXINE 50 MCG TABLET PO (07:15)
[2023-06-08] MEDS: ACETAMINOPHEN 500 MG TABLET 1000 MG PO ×2 (08:33→22:49)
[2023-06-08] MEDS: METFORMIN ER 500 MG PO (08:34)
[2023-06-08] MEDS: NON-FORMULARY MEDICATION INH (08:34)
[2023-06-08] MEDS: SERTRALINE 100 MG TABLET 150 MG PO (08:34)
[2023-06-08] MEDS: METOPROLOL SUCCINATE (XL) 25 MG TAB PO (08:34)
[2023-06-08] MEDS: CETIRIZINE HCL 10 MG TABLET PO (08:34)
[2023-06-08] MEDS: MAGNESIUM HYDROXIDE 30 ML ORAL.SUSP PO (14:51)
[2023-06-08] MEDS: MIRTAZAPINE 15 MG TABLET PO (19:24)
[2023-06-08] MEDS: MELATONIN 3 MG TABLET 5 MG PO (19:24)
--- NOTE | 2023-06-08 22:15 | PC.NURSE ---
Resident reported bugs in bed/floor/food/dressers this shift. Resident somewhat easily redirected
[2023-06-09] MEDS: NON-FORMULARY MEDICATION INH (06:59)
[2023-06-09] MEDS: OMEPRAZOLE 20 MG CAPSULE DR PO (06:59)
[2023-06-09] MEDS: METFORMIN ER 500 MG PO (06:59)
[2023-06-09] MEDS: ACETAMINOPHEN 500 MG TABLET 1000 MG PO ×2 (06:59→22:55)
[2023-06-09] MEDS: LEVOTHYROXINE 50 MCG TABLET PO (06:59)
[2023-06-09] MEDS: METOPROLOL SUCCINATE (XL) 25 MG TAB PO (06:59)
[2023-06-09] MEDS: CETIRIZINE HCL 10 MG TABLET PO (07:00)
[2023-06-09] MEDS: SERTRALINE 100 MG TABLET 150 MG PO (07:00)
[2023-06-09] MEDS: MIRTAZAPINE 15 MG TABLET PO (19:18)
[2023-06-09] MEDS: MELATONIN 3 MG TABLET 5 MG PO (19:18)
--- NOTE | 2023-06-09 20:39 | PC.NURSE ---
18:00 resident began reporting seeing bugs on floor, food, bed, rhodes, dresser. Resident somewhat easily redirected.
[2023-06-10] MEDS: TRAMADOL HCL 50 MG TABLET PO (03:35)
--- NOTE | 2023-06-10 04:37 | PC.NURSE ---
WEEKLY CHARTING WEEK 3 TOILETING AND SKIN Review vital signs, no concerns.? Resident`s comprehensive and temporary care plan reviewed with no new changes. Resident continues to have occasional episode of incontinence of bowel and bladder. She requires one assist with toileting and pericares. She wears medium size pull-ups and incontinent pad. At night , she calls for assist to toilet, or she will set the alarm by trying to go by herself. Skin:? Resident does not have any skin issue currently and gets her skin check on bath day. Resident is reposition every 2 hours to prevent pressure sore.
[2023-06-10] MEDS: METFORMIN ER 500 MG PO (07:03)
[2023-06-10] MEDS: ACETAMINOPHEN 500 MG TABLET 1000 MG PO ×2 (07:03→23:38)
[2023-06-10] MEDS: LEVOTHYROXINE 50 MCG TABLET PO (07:03)
[2023-06-10] MEDS: OMEPRAZOLE 20 MG CAPSULE DR PO (07:03)
[2023-06-10] MEDS: METOPROLOL SUCCINATE (XL) 25 MG TAB PO (07:03)
[2023-06-10] MEDS: CETIRIZINE HCL 10 MG TABLET PO (07:04)
[2023-06-10] MEDS: SERTRALINE 100 MG TABLET 150 MG PO (07:04)
--- NOTE | 2023-06-10 07:12 | PC.NURSE ---
Weekly Charting, Week 3-Toileting: Comprehensive and temporary care plan reviewed. No changes made. Nothing added to temporary care plan. Resident needs one assist with toileting. Is frequently incontinent of urine, has occasional bowel incontinence. Staff to check every 2 hours and assist as needed.Resident will also put the call light when ready to use the toilet. Ambulates to the bathroom using the walker and gait belt. At times? will also toilet self. Wears pull ups with inserts per request & comfort. Pads, farhan cares, clothing managed by staff. Vital signs reviewed, no concerns. Continue weekly monitoring. Skin: No issues at this time. Skin is checked during cares and on bath day.
--- NOTE | 2023-06-10 08:22 | PC.NURSE ---
Behavior note: Resident c/o pain to 6/10 R leg this morning at approximately 0700 while being assisted with AM cares including toileting. She was then given scheduled Tylenol. After resident was administered Tylenol and encouraged Spiriva resident became irritable and said, Just get out of here. Resident was then let in safe setting. Supervisory Investigative Specialist reapproached resident to encourage Spiriva at approximately 0745 and resident continued to refuse stating, Leave me alone. That's all you do is give me pills. Resident left in safe setting.
--- NOTE | 2023-06-10 11:20 | PC.NURSE ---
Order: Ant ALEX here. Albuterol neb Q6H PRN discontinued.
--- NOTE | 2023-06-10 13:31 | PC.NURSE ---
Skin note: DARIN reported this afternoon that resident reported bug bite to R wrist. Nub Card Tender observed area and noted pinpoint bug bite to R wrist with no warmth, edema, redness or drainage observed upon inspection. Nursing will continue to monitor until healed.
[2023-06-10] MEDS: MIRTAZAPINE 15 MG TABLET PO (19:52)
[2023-06-10] MEDS: MELATONIN 3 MG TABLET 5 MG PO (19:52)
[2023-06-11] MEDS: NON-FORMULARY MEDICATION PO (05:04)
--- NOTE | 2023-06-11 05:06 | PC.NURSE ---
Skin Resident has redness around her belly buttom ; skin intact, no rash.
[2023-06-11] MEDS: OMEPRAZOLE 20 MG CAPSULE DR PO (07:33)
[2023-06-11] MEDS: LEVOTHYROXINE 50 MCG TABLET PO (07:33)
[2023-06-11] MEDS: ACETAMINOPHEN 500 MG TABLET 1000 MG PO ×2 (07:43→22:47)
[2023-06-11] MEDS: SERTRALINE 100 MG TABLET 150 MG PO (07:44)
[2023-06-11] MEDS: CETIRIZINE HCL 10 MG TABLET PO (07:44)
[2023-06-11] MEDS: METFORMIN ER 500 MG PO (07:44)
[2023-06-11] MEDS: METOPROLOL SUCCINATE (XL) 25 MG TAB PO (07:44)
[2023-06-11] MEDS: NON-FORMULARY MEDICATION INH (07:44)
--- NOTE | 2023-06-11 09:26 | PC.PHA1 ---
PSS DELIVERY PROFESSIONAL PHARMACIST'S MEDICATION REVIEW: MEDICATION MONITORING:Mirtazapine 15 mg po hs, sertraline 150 mg daily IRREGULARITY OR COMMENTS:Patient continues to need above monitored medications as she is doing well and continues to live without the need for lorazepam. No medication changes since last month. SUGGESTED COURSE OF ACTION TAKEN:No medication recommendations this review.
--- NOTE | 2023-06-11 11:58 | PC.SPIRITC ---
I provided support and reassurance to Amberly.
[2023-06-11] MEDS: MELATONIN 3 MG TABLET 5 MG PO (20:04)
[2023-06-11] MEDS: MIRTAZAPINE 15 MG TABLET PO (20:04)
--- NOTE | 2023-06-11 21:52 | PC.NURSE ---
Behaviors: Resident was in good spirits after playing Bingo before bedtime. She took her medications for bedtime and then was reported she was seeing ants on the floor.
[2023-06-12] MEDS: TRAMADOL HCL 50 MG TABLET PO (05:19)
[2023-06-12] MEDS: METOPROLOL SUCCINATE (XL) 25 MG TAB PO (07:54)
[2023-06-12] MEDS: OMEPRAZOLE 20 MG CAPSULE DR PO (07:54)
[2023-06-12] MEDS: ACETAMINOPHEN 500 MG TABLET 1000 MG PO (07:54)
[2023-06-12] MEDS: CETIRIZINE HCL 10 MG TABLET PO (07:54)
[2023-06-12] MEDS: NON-FORMULARY MEDICATION INH (07:54)
[2023-06-12] MEDS: SERTRALINE 100 MG TABLET 150 MG PO (07:54)
[2023-06-12] MEDS: METFORMIN ER 500 MG PO (07:54)
[2023-06-12] MEDS: LEVOTHYROXINE 50 MCG TABLET PO (07:54)
[2023-06-12 08:00] VITALS: BP 126/70; PULSE 74; RESP 18; TEMP 36.4; O2SAT 96
--- NOTE | 2023-06-12 09:37 | PC.NURSE ---
RECAPITULATION NOTE: Resident was admitted to [facility] [place] [place] [facility] on . They have an extensive medical history including: Alzheimer's disease, COPD, Type 2 diabetes, generalized anxiety disorder, paroxysmal supraventricular tachicardia, essential hypertension, spinal stenosis, osteoarthritis, peripheral neuropathy, acquired hypothyroidism, osteoporosis, GERD, overactive bladder and frailty in geriatric patient. They discharged today to [facility] (memory care) for ongoing care needs since [facility] is closing. Resident was sent with discharge orders, remaining supply of medications, POLST/Advance directives, signed active med list, active care plan and MDS. They did require prescription for controlled substances at [place]. Belongings were inventoried and signed. Discharge summary completed by provider. Resident remains DNR/DNI - selective treatment. Discharge orders and pertinent notes E-mailed to Elly PINEDA at [email or web address]. Resident was accompanied by RN/Thu to the care center. All questions answered.?
--- NOTE | 2023-06-12 11:16 | PC.NURSE ---
Discharge: Resident discharge to [facility] d/t facility closure. Transported via family private vehicle. All appropriate medications, medical records, personal belongings sent
== END 2023-06-12 11:14 | DRG 309 ==
PROVIDERS: Family Medicine; Admitting Provider Nurse Practitioner Gerontology; Family Provider Nurse Practitioner Gerontology; PCP Family Medicine; Visit Provider Nurse Practitioner Gerontology
DX: I47.1 Supraventricular tachycardia (principal); J90 Pleural effusion, not elsewhere classified; R07.89 Other chest pain; M81.0 Age-related osteoporosis without current pathological fracture; R41.82 Altered mental status, unspecified; M48.00 Spinal stenosis, site unspecified; R41.9 Unspecified symptoms and signs involving cognitive functions and awareness; E03.9 Hypothyroidism, unspecified; G47.00 Insomnia, unspecified; I10 Essential (primary) hypertension; J44.9 Chronic obstructive pulmonary disease, unspecified; R54 Age-related physical debility; K21.9 Gastro-esophageal reflux disease without esophagitis; L30.9 Dermatitis, unspecified; S70.01XS Contusion of right hip, sequela
CPT/HCPCS: 36415; 71045; 71046; 72131; 73700; 80048; 81001; 83036; 84443; 85025; 87086; 87186; 87502; 87634; 87635; 87798; 90471; 90662; 97110; 97116; 97161; 97166; 97530; 97535

== ENCOUNTER 2022-09-02 19:35 | Emergency (ER) | payer MEDICARE, OTHER, SELFPAY ==
[2022-09-02 19:47] VITALS: BP 135/66; PULSE 66; RESP 18; TEMP 36.6; O2SAT 94
--- NOTE | 2022-09-02 19:47 | CRLHL7_ITS ---
For Patients: As a result of the Cures Act, medical imaging exams and procedure reports are released immediately into your electronic medical record. You may view this report before your referring provider. If you have questions, please contact your health care provider. INDICATION: fall and head injury TECHNIQUE: CT cervical spine without contrast. COMPARISON: None FINDINGS: Multilevel degenerative disc disease noted. Severe degenerative facet arthropathy. Chronic hypertrophic changes between C1 and C2. No fracture. A paraspinal soft tissue mass. The patient is rotated IMPRESSION: No cervical spine fracture. Please note that all CT scans at this facility use dose modulation, iterative reconstruction, and/or weight-based dosing when appropriate to reduce radiation dose to as low as reasonably achievable. Dictated by Nakul Chambers MD @ 09/02/2022 8:48:43 PM (Electronically Signed)
--- NOTE | 2022-09-02 19:48 | CRLHL7_ITS ---
For Patients: As a result of the Century Cures Act, medical imaging exams and procedure reports are released immediately into your electronic medical record. You may view this report before your referring provider. If you have questions, please contact your health care provider. INDICATION: Fall and hematoma COMPARISON: 07/02/2022 TECHNIQUE: A CT volumetric acquisition was performed of the brain without IV contrast. Please note that all CT scans at this facility use dose modulation, iterative reconstruction, and/or weight-based dosing when appropriate to reduce radiation dose to as low as reasonably achievable. FINDINGS: Generalized atrophy and chronic white matter changes similar. Similar size of the ventricles. No hemorrhage or fracture. Clear sinuses. IMPRESSION: No intracranial hemorrhage. Please note that all CT scans at this facility use dose modulation, iterative reconstruction, and/or weight-based dosing when appropriate to reduce radiation dose to as low as reasonably achievable. Dictated by Nakul Chambers MD @ 09/02/2022 8:40:43 PM (Electronically Signed)
[2022-09-02 20:45] VITALS: BP 142/67; PULSE 61; RESP 18; O2SAT 95
--- NOTE | 2022-09-02 20:46 | CRLHL7_ITS ---
For Patients: As a result of the Century Cures Act, medical imaging exams and procedure reports are released immediately into your electronic medical record. You may view this report before your referring provider. If you have questions, please contact your health care provider. Indication: Right hip pain after fall.. Technique: AP view of the pelvis and two views of the right hip. Comparison: May 08, 2018. Findings: Bones: Demineralization of the visualized bones.. No definite fractures identified. Joint spaces: Moderate to severe bilateral hip joint degenerative changes as well as bilateral SI joint degenerative changes. Pubic symphysis is not well visualized likely related to underlying decrease in bone mineral density.. Soft tissues: Pelvic phleboliths.. Impression: Demineralization of the visualized bones. No definite fractures or dislocations identified.. Dictated by Brannon Kamara MD @ 09/02/2022 9:35:59 PM (Electronically Signed)
--- NOTE | 2022-09-02 21:31 | ED.NURSE ---
report to [facility] caregiver.
[2022-09-02 21:36] VITALS: BP 131/71; PULSE 67; RESP 16
--- NOTE | 2022-09-03 02:56 | ED.FALL ---
HPI - Fall General Chief Complaint: Fall/Minor Trauma Stated Complaint: Fall Time Seen by Provider: 09/02/22 19:42 History of Present Illness HPI Narrative: 87-year-old fell this afternoon in her bathroom in [facility] to this hospital. She intermittently complains of pain in the back of her head; swelling has been noted. No neck of back pain. no extremity pain. is not thought to have lost consciousness. no nausea/vomiting. no visual changes. remains hard of hearing. she's upset that she got stuck under the sink somehow and had to call for help. intermittently disagreeable and wanting to leave. h/o dementia. was in usual state of health. was ambulatory after fall but begins to during stay complain of right hip area pain. accompanied by son and then daughter. Related Data Home Medications Medication Instructions Recorded Confirmed aspirin 81 mg capsule 81 mg PO DAILY 05/08/22 09/02/22 cholecalciferol (vitamin D3) 50 2,000 unit PO DAILY 05/08/22 07/02/22 mcg (2,000 unit) capsule (Vitamin D3) donepezil 5 mg tablet 5 mg PO HS 05/08/22 09/02/22 levothyroxine 50 mcg tablet 50 mcg PO DAILY 05/08/22 09/02/22 lorazepam 0.5 mg tablet (Ativan) 0.5 mg PO HS PRN 05/08/22 09/02/22 melatonin 3 mg capsule 3 mg PO HS PRN 05/08/22 09/02/22 metoprolol succinate 25 mg 25 mg PO DAILY 05/08/22 09/02/22 tablet,extended release 24 hr omeprazole 20 mg capsule,delayed 20 mg PO DAILY 05/08/22 09/02/22 release risedronate 35 mg tablet 35 mg PO .WED@05/08/22 09/02/22 tiotropium bromide 18 mcg capsule 1 cap inhalation DAILY 05/08/22 09/02/22 with inhalation device (Spiriva with HandiHaler) vit A 300 mcg-C 200 mg-E 27 1 tab PO DAILY 06/16/22 07/02/22 mg-lutein 2 mg and minerals tablet (I-Maribel) lidocaine 4 % topical patch 1 patch topical DAILY pain 07/02/22 07/02/22 sertraline 100 mg tablet 100 mg PO DAILY 07/02/22 09/02/22 Previous Rx's Medication Instructions Recorded nystatin 100,000 unit/gram topical 1 applic topical BID #30 grams 06/17/22 cream acetaminophen 650 mg 1,300 mg PO TID PRN pain #90 tabs 07/05/22 tablet,extended release (Arthritis Pain Relief (acetaminophen) ER) ciprofloxacin HCl 250 mg tablet 250 mg PO BID #10 tabs 07/05/22 Allergies Allergy/AdvReac Type Severity Reaction Status Date / Time codeine Allergy Intermediate Hives Verified 06/16/22 09:19 lisinopril Allergy Intermediate Cough Verified 06/16/22 09:19 alendronate sodium AdvReac Intermediate Nausea Verified 06/16/22 09:19 Review of Systems Status of ROS: Reports: 6 or more systems reviewed and unremarkable except as noted in History and below [facility] Medical History Adenoma of left adrenal gland Adrenal mass COPD (chronic obstructive pulmonary disease) Essential hypertension GERD (gastroesophageal reflux disease) Hearing loss Hiatal hernia Hypothyroidism Insomnia 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 Osteoporosis Paroxysmal SVT (supraventricular tachycardia) Peripheral neuropathy Polypharmacy Sensorineural hearing loss of both ears Spinal stenosis Vitamin D deficiency Surgical History History of hysterectomy Previous back surgery S/P knee replacement S/P laparotomy S/P repair of paraesophageal hernia Status post appendectomy Status post left knee replacement Status post tonsillectomy Family History Father COPD (chronic obstructive pulmonary disease) High blood pressure Mother Dementia Psychiatric illness Social History Highest level of school completed/degree received: high school graduate Smoking Status: Never smoker Do you use any of these nicotine containing products: None Second hand tobacco smoke exposure: No How often do you have a drink containing alcohol: monthly or less How often do you have six or more drinks on one occasion: Never AUDIT-C Alcohol total score: 1 Non-prescribed substance use: denies use Caffeine: Yes (coffee) Gender Identity: female service: No Exam Narrative: Exam Narrative: of good nrg. speaking easily. breathing easily. hard of hearing. generally pleasant. oropharynx without injury. gcs of 15 (in setting of dementia) cn 2-12 intact head is normocephalic, with 4 - 5 cm soft tissue swelling at upper occiput. no break in skin/no bleeding. hearing aids in place. no fluid in ear canal, no luna sign. neck supple, nt no pain or injury noted about shoulders. moving arms without pain. back without deformity or tenderness, lungs are clear. abd soft and nt. no masses. pelvis without instability. flexing and rotating hips without apparent difficulty. no leg pain. no edema. on reexamination, seems to be generally sore at posterior right hip, a little in the farhan-sacral area. no erythema. Const: Vital Signs, click to edit/add: Vital Signs - 24 hr 09/02/22 19:47 09/02/22 20:45 09/02/22 21:36 Temperature 97.8 F Pulse Rate [Left P ulse Oximeter] 66 61 67 Respiratory Rate 18 18 16 Blood Pressure [Le ft Upper Arm] 135/66 142/67 H 131/71 Pulse Oximetry 94 95 Oxygen Delivery Me thod Room Air Room Air Course Course Hospital Course: ct imaging. offered acetaminophen and accepted but then declined as dispensed. just wanted to leave Vital Signs Vital signs: Initial Vital Signs Temperature 97.8 F 09/02/22 19:47 Temperature Source Temporal Artery Scan 09/02/22 19:47 Pulse Rate 66 09/02/22 19:47 Pulse Rhythm 09/02/22 19:47 Respiratory Rate 18 09/02/22 19:47 Blood Pressure 135/66 09/02/22 19:47 Blood Pressure Mean 89 09/02/22 19:47 Blood Pressure Position Sitting 09/02/22 19:47 Pulse Oximetry 94 09/02/22 19:47 Oxygen Delivery Method 09/02/22 19:47 Vital Signs Temperature 97.8 F 09/02/22 19:47 Pulse Rate 66 09/02/22 19:47 Respiratory Rate 18 09/02/22 19:47 Blood Pressure 135/66 09/02/22 19:47 Pulse Oximetry 94 09/02/22 19:47 Oxygen Delivery Method 09/02/22 19:47 Temperature 97.8 F 09/02/22 19:47 Pulse Rate 67 09/02/22 21:36 Respiratory Rate 16 09/02/22 21:36 Blood Pressure 131/71 09/02/22 21:36 Pulse Oximetry 95 09/02/22 20:45 Oxygen Delivery Method 09/02/22 20:45 MDM - Fall MDM Narrative Medical decision making narrative: ct head and neck and flat plate right hip by my read without acute abn beyond soft tissue swelling c/w exam. Discharge Plan Discharge Clinical Impression: Hip pain, acute, Hematoma, Closed head injury Patient Disposition: Home w/ Parent or Adult Condition: Stable Additional Instructions: I would ice these sore areas 2-3 times daily over the next few days. Especially if your hip area/sacrum really seems to be not getting better over the next 5 days or so, consider reimaging. Be seen for marked increase in pain, repeated vomiting, severe headache. Can take acetaminophen this evening yet. Prescriptions: No Action I-Maribel 300 mcg-200 mg-27 mg-2 mg tablet 1 tab PO DAILY Rx Instructions: administer after a meal nystatin 100,000 unit/gram Cream 1 applic topical BID Qty: 30 1RF Rx Instructions: Wash and rinse groin region, then pat dry with towel, then apply thin layer of cream - repeat twice daily for min of 2 weeks donepezil 5 mg tablet 5 mg PO HS levothyroxine 50 mcg tablet 50 mcg PO DAILY metoprolol succinate 25 mg tablet extended release 24 hr 25 mg PO DAILY omeprazole 20 mg capsule,delayed release(DR/EC) 20 mg PO DAILY risedronate 35 mg tablet 35 mg PO .WED@06 Spiriva with HandiHaler 18 mcg capsule, w/inhalation device 1 cap INHALATION DAILY melatonin 3 mg capsule 3 mg PO HS PRN lorazepam [Ativan] 0.5 mg tablet 0.5 mg PO HS PRN aspirin 81 mg capsule 81 mg PO DAILY cholecalciferol (vitamin D3) [Vitamin D3] 50 mcg (2,000 unit) capsule 2,000 unit PO DAILY sertraline 100 mg tablet 100 mg PO DAILY lidocaine 4 % adhesive patch,medicated 1 patch topical DAILY ciprofloxacin HCl 250 mg Tablet 250 mg PO BID Qty: 10 0RF Rx Instructions: continue until finished acetaminophen [Arthritis Pain Relief (acetam)] 650 mg tablet extended release 1,300 mg PO TID PRN (Reason: pain) Qty: 90 0RF Follow Up/Referrals: Timbo Pierce MD [Primary Care Provider] - Stand Alone Forms: [employer] Info Instructions
== END 2022-09-02 21:37 | disposition home or self-care (01) ==
PROVIDERS: Emergency Provider Family Medicine; PCP Family Medicine
DX: S09.90XA Unspecified injury of head, initial encounter (principal); W18.30XA Fall on same level, unspecified, initial encounter; Y93.9 Activity, unspecified; Y92.121 Bathroom in nursing home as the place of occurrence of the external cause; Y99.9 Unspecified external cause status; M25.551 Pain in right hip
CPT/HCPCS: 70450; 72125; 73502; 99284

== ENCOUNTER 2023-10-23 14:57 | Outpatient (REF) | payer MEDICARE, OTHER, SELFPAY ==
[2023-10-23 15:28] LABS: Appearance Urine Clear (Clear); Bilirubin Urine Negative (Negative); Blood Urine Negative (Negative); Color Urine Yellow (Yellow); Glucose Urine Negative (Negative); Ketones Urine Negative (Negative); Leukocyte Esterase Urine 1+ (Negative); Nitrite Urine Positive (Negative); Protein Urine Negative (Negative); Specific Gravity Urine 1.015 (1.000-1.030); Urobilinogen Urine 0.2 (0.2-1.0)
[2023-10-23 15:48] LABS: WBC Urine 25-50 (0-5)
[2023-10-23 15:49] LABS: Amorphous Sediment Urine Few; Bacteria Urine Many; Coarse Granular Casts Urine Few; WBC Clumps Urine Few
[2023-10-23 15:50] LABS: White Blood Cell Casts Urine Few
== END 2023-10-23 14:58 | disposition home or self-care (01) ==
LOC: NPINS 14:57
PROVIDERS: PCP Family Medicine; Visit Provider Nurse Practitioner Gerontology
DX: R35.0 Frequency of micturition (principal)
CPT/HCPCS: 81001; 87086; 87186

== ENCOUNTER 2023-11-05 15:44 | Outpatient (CLI) | payer MEDICARE, OTHER, SELFPAY | END 2023-11-05 15:45 | disposition home or self-care (01) | LOC: AMB 11-07 16:37 | PROVIDERS: PCP Family Medicine; Visit Provider Family Medicine | DX: S89.91XA Unspecified injury of right lower leg, initial encounter (principal); W18.30XA Fall on same level, unspecified, initial encounter; Y92.039 Unspecified place in apartment as the place of occurrence of the external cause | CPT/HCPCS: A0425; A0429 ==

== ENCOUNTER 2023-11-05 16:02 | Inpatient (IN) | payer MEDICARE, OTHER, SELFPAY ==
[2023-11-05] VITALS (13 sets, daily range): BP systolic 85–168; BP diastolic 49–113; PULSE 68–79; RESP 12–18; TEMP 36.5–37.2; O2SAT 88–98; BMI 22.4
--- NOTE | 2023-11-05 16:10 | ED.GENADULT ---
HPI - General Adult General Chief complaint: Fall/Minor Trauma Stated complaint: Hip pain Time Seen by Provider: 11/05/23 16:10 History of Present Illness HPI narrative: Patient had witnessed fall while she was visiting with family. Following fall to the floor she complains of right hip pain. Right leg appears turned out and is too painful for patient to move 88-year-old woman presenting the EMS to the emergency department after a fall in her assisted living facility. Does struggle with being quite hard of hearing as well as dementia. Initially understand this to be a witnessed fall but this is clarify this was unwitnessed. She is normally nonambulatory seated in a wheelchair. Staff had seen her about 5 minutes before and return to find her on the ground. Suspected to been reaching for something from her dresser. Amaya is complaining of right hip pain. I did call to facility and spoke with care provider for clarification of all of this. Was apparently in usual state of health before this fall. Kari is self-deprecating and says how she was just so ?stupid? that family telling me to be careful not to walk she says. Denies hitting her head or having any head pain. Denies neck or back pain. Complaining of again hip and buttock pain. Related Data Home Medications Medication Instructions Recorded Confirmed levothyroxine 50 mcg tablet 50 mcg PO DAILY 05/08/22 11/05/23 metoprolol succinate 25 mg 25 mg PO DAILY 05/08/22 11/05/23 tablet,extended release 24 hr omeprazole 20 mg capsule,delayed 20 mg PO DAILY 05/08/22 11/05/23 release risedronate 35 mg tablet 35 mg PO .WED@06 05/08/22 11/05/23 tiotropium bromide 18 mcg capsule 1 cap inhalation DAILY 05/08/22 11/05/23 with inhalation device (Spiriva with HandiHaler) sertraline 100 mg tablet 150 mg PO DAILY 07/02/22 11/05/23 acetaminophen 500 mg tablet 1,000 mg PO BID 11/05/23 11/05/23 cetirizine 10 mg tablet (24Hour 10 mg PO DAILY 11/05/23 11/05/23 Allergy) guaifenesin 100 mg/5 mL oral 100 mg PO Q4H PRN 11/05/23 11/05/23 liquid (Adult [employer]-Tussin) loperamide 2 mg tablet 2 mg PO TID PRN 11/05/23 11/05/23 (Anti-Diarrheal (loperamide)) melatonin 5 mg tablet 5 mg PO HS 11/05/23 11/05/23 metformin 500 mg tablet 500 mg PO DAILY 11/05/23 11/05/23 mirtazapine 15 mg tablet 15 mg PO HS 11/05/23 11/05/23 tramadol 50 mg tablet 50 mg PO Q8H PRN 11/05/23 11/05/23 Previous Rx's Medication Instructions Recorded nystatin 100,000 unit/gram topical 1 applic topical BID #30 grams 06/17/22 cream Allergies Allergy/AdvReac Type Severity Reaction Status Date / Time codeine Allergy Intermediate Hives Verified 06/16/22 09:19 lisinopril Allergy Intermediate Cough Verified 06/16/22 09:19 alendronate sodium AdvReac Intermediate Nausea Verified 06/16/22 09:19 Review of Systems Status of ROS: Reports: unobtainable due to mental status (Unreliable due to dementia and hard of hearing) PFSH PFS Medical History Adenoma of left adrenal gland Adrenal mass COPD (chronic obstructive pulmonary disease) Essential hypertension GERD (gastroesophageal reflux disease) Hearing loss Hiatal hernia Hypothyroidism Insomnia 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 Osteoporosis Paroxysmal SVT (supraventricular tachycardia) Peripheral neuropathy Polypharmacy Sensorineural hearing loss of both ears Spinal stenosis Vitamin D deficiency Surgical History History of hysterectomy Previous back surgery S/P knee replacement S/P laparotomy S/P repair of paraesophageal hernia Status post appendectomy Status post left knee replacement Status post tonsillectomy Family History Father COPD (chronic obstructive pulmonary disease) High blood pressure Mother Dementia Psychiatric illness Social History Highest level of school completed/degree received: high school graduate Smoking Status: Never smoker Do you use any of these nicotine containing products: None Second hand tobacco smoke exposure: No How often do you have a drink containing alcohol: monthly or less How often do you have six or more drinks on one occasion: Never AUDIT-C Alcohol total score: 1 Non-prescribed substance use: denies use Caffeine: Yes (coffee) Gender Identity: female service: No Exam Narrative: Exam Narrative: Pleasant. Clearly hard of hearing. Repeatedly asks same questions about every 90-120 seconds with a slight smirk. Or breathing easily. Head appears to be atraumatic. Cranial nerves 2-12 intact. Oropharynx is without injury. Neck is nontender and relatively supple. Back with notable thoracic kyphosis. Nontender to palpation. Some trace bibasilar crepitus on auscultation. No pain to palpation about the upper extremities or chest clavicles. Abdomen is protuberant soft and nontender. Quite sore to palpation over the right greater trochanteric aspect of the hip. Knee is bent on the right side just a little bit but leg is out really rotated and shortened more than I might expect for this degree of knee flexion. Very tender to any manipulation of the right leg and little bit of the left but I think that is causing discomfort over on the right side. Well-perfused peripherally. Mild dependent lower leg edema. Const: Vital Signs, click to edit/add: Vital Signs - 24 hr 11/05/23 16:18 11/05/23 16:21 11/05/23 16:32 Temperature 99.0 F Pulse Rate 69 Pulse Rate [Pulse Oximeter] 75 Respiratory Rate 18 Blood Pressure Blood Pressure [Le ft Upper Arm] 159/102 H Pulse Oximetry 93 88 94 Oxygen Delivery Me thod Room Air Oxygen Flow Rate 11/05/23 17:00 11/05/23 17:02 11/05/23 17:30 Temperature Pulse Rate 71 69 70 Pulse Rate [Pulse Oximeter] Respiratory Rate Blood Pressure 166/87 H Blood Pressure [Le ft Upper Arm] Pulse Oximetry 92 90 91 Oxygen Delivery Me thod Oxygen Flow Rate 11/05/23 17:32 11/05/23 17:45 11/05/23 18:00 Temperature Pulse Rate 76 78 Pulse Rate [Pulse Oximeter] Respiratory Rate Blood Pressure 168/113 H Blood Pressure [Le ft Upper Arm] Pulse Oximetry 92 95 96 Oxygen Delivery Me thod Nasal Cannula Oxygen Flow Rate 2 11/05/23 18:03 Temperature Pulse Rate 78 Pulse Rate [Pulse Oximeter] Respiratory Rate Blood Pressure 123/65 Blood Pressure [Le ft Upper Arm] Pulse Oximetry 95 Oxygen Delivery Me thod Oxygen Flow Rate Documenting provider has reviewed patient's vital signs: yes Course Vital Signs Vital signs: Initial Vital Signs Temperature 99.0 F 11/05/23 16:18 Temperature Source Temporal Artery Scan 11/05/23 16:18 Pulse Rate 75 11/05/23 16:18 Respiratory Rate 18 11/05/23 16:18 Blood Pressure 159/102 H 11/05/23 16:18 Blood Pressure Mean 121 H 11/05/23 16:18 Pulse Oximetry 93 11/05/23 16:18 Oxygen Delivery Method Room Air 11/05/23 16:18 Vital Signs Temperature 99.0 F 11/05/23 16:18 Pulse Rate 75 11/05/23 16:18 Respiratory Rate 18 11/05/23 16:18 Blood Pressure 159/102 H 11/05/23 16:18 Pulse Oximetry 93 11/05/23 16:18 Oxygen Delivery Method Room Air 11/05/23 16:18 Temperature 99.0 F 11/05/23 16:18 Pulse Rate 78 11/05/23 18:03 Respiratory Rate 18 11/05/23 16:18 Blood Pressure 123/65 11/05/23 18:03 Pulse Oximetry 95 11/05/23 18:03 Oxygen Delivery Method Nasal Cannula 11/05/23 17:45 Oxygen Flow Rate 2 11/05/23 17:45 Medications Administered Medications: Generic Name Dose Route Start Last Admin Trade Name Freq PRN Reason Stop Dose Admin Fentanyl 50 mcg 11/05/23 16:27 11/05/23 16:43 Fentanyl 100 Mcg/2 Ml Inj IVP 50 mcg ONCE PRN Administration pain Discontinued Medications Generic Name Dose Route Start Last Admin Trade Name Freq PRN Reason Stop Dose Admin Hydromorphone HCl 0.5 mg 11/05/23 17:25 11/05/23 17:45 Hydromorphone 0.5 Mg/0.5 Ml Inj IVP 11/05/23 17:26 0.5 mg ONCE ONE Administration Ondansetron HCl 4 mg 11/05/23 16:59 11/05/23 17:05 Ondansetron 2 Mg/Ml Inj IVP 11/05/23 17:00 4 mg ONCE ONE Administration Medical Decision Making MDM Narrative Medical decision making narrative: Would definitely suspect a right hip fracture of some sort. Ordering fentanyl for imaging. There is a history of sacral ulcer. She does not appear to have sustained any other injuries nor do I see any evidence of having hit her head. Will order chest x-ray anticipating a fractured hip. EKG noted below. IV is established. Tolerated imaging but still with pain. Ordered for a dose of Dilaudid as did not seem to be very sedated with fentanyl. X-rays a right hip and pelvis reviewed by me show what I thought was impact trochanteric area fracture. Radiology over-read noting femoral neck fracture, impacted and comminuted. Findings discussed with orthopedics on-call prior to radiology over-read. Anticipating likely intervention in the morning. Chest x-ray reviewed by me with chronic changes. Radiology over-read read noting right-sided paratracheal/mediastinal mass. I did review this and it seems to have been present in some form prior on review of imaging. Needed little oxygen support following Dilaudid. Pain control is improved. Accepted for admission by hospitalist. Lab Data Lab results reviewed: Yes I reviewed the patient's lab results Labs: Lab Results 11/05/23 Range/Units 16:18 WBC 5.49 (4.50-11.00) K/uL RBC 4.27 (4.00-5.20) m/uL Hgb 12.4 (12.0-16.0) gm/dL Hct 40.2 (33.0-51.0) % MCV 94 (80-100) fL MCH 29 (26-34) pg MCHC 31 L (32-36) gm/dL RDW Coeff of Aristeo 13.9 (11.5-15.5) % Plt Count 209 (140-440) K/uL Neut % (Auto) 55.9 (42.0-72.0) % Lymph % (Auto) 31.5 (20-44) % [place] % (Auto) 8.6 (0.0-11.0) % Eos % (Auto) 3.6 (0.0-7.0) % Baso % (Auto) 0.2 (0.0-3.0) % Neut # (Auto) 3.07 (1.7-7.0) K/uL Lymph # (Auto) 1.73 (0.90-2.90) K/uL [place] # (Auto) 0.50 (0.00-0.90) K/UL Eos # (Auto) 0.20 (0.00-0.50) K/uL Baso # (Auto) 0.01 (0.00-0.30) K/uL Abs Immat Gran (auto) 0.01 (0.00-0.30) K/uL Imm/Tot Granulo (auto) 0.2 % Sodium 139 (135-149) mmol/L Potassium 4.8 (3.6-5.1) mmol/L Chloride 106 (96-114) mmol/L Carbon Dioxide 25 (20-32) mmol/L Anion Gap 8 (7-15) mEq/L BUN 21 (7-30) mg/dL Creatinine 0.9 (0.5-1.5) mg/dL Estimated GFR 61 ml/min Glucose 135 H (60-115) mg/dL Calcium 9.6 (8.4-10.6) mg/dL ECG Data Attestation: I personally reviewed and interpreted this ECG as follows: (Normal sinus rhythm. Rate of 67.) Discharge Plan Discharge Clinical Impression: Closed hip fracture, Fall Patient Disposition: Admitted As Observation Condition: Stable
--- NOTE | 2023-11-05 16:20 | CRLHL7_ITS ---
For Patients: As a result of the Century Cures Act, medical imaging exams and procedure reports are released immediately into your electronic medical record. You may view this report before your referring provider. If you have questions, please contact your health care provider. Indication: Trauma. Technique: AP view of the pelvis and two views of the right hip. Comparison: None. Findings: Bones: Alignment is normal. Comminuted impacted fracture of the right femoral neck.. Diffuse demineralization of the visualized bones. Joint spaces: Moderate degenerative changes of the bilateral hips and SI joints.. Soft tissues: Vascular calcifications.. Impression: Comminuted impacted fracture of the right femoral neck. Dictated by Brannon Kamara MD @ 11/05/2023 5:33:55 PM (Electronically Signed)
--- NOTE | 2023-11-05 16:26 | CRLHL7_ITS ---
For Patients: As a result of the Century Cures Act, medical imaging exams and procedure reports are released immediately into your electronic medical record. You may view this report before your referring provider. If you have questions, please contact your health care provider. Indication: Fall Comparison: Single-view chest March 06, 2023 Technique: Single AP view chest Findings: There is interval development of a right paratracheal mass projecting over the superior mediastinum. There is basilar atelectasis and parenchymal scar with mild biapical pleural thickening. There is mild central bronchial prominence. The cardiac silhouette is stable. Old left-sided rib fractures are again seen. Additional chronic right-sided rib deformities are noted. Impression: Demonstration of a prominent right paratracheal mass projecting over the superior mediastinum for which additional imaging with cross-sectional study is recommended for improved characterization. Otherwise, minimal chronic interstitial changes and basilar atelectasis. No other acute cardiopulmonary abnormalities are appreciated. Dictated by Ricky Ferrell MD @ 11/05/2023 5:43:28 PM (Electronically Signed)
[2023-11-05] MEDS: fentaNYL 100 MCG/2 ML inj 50 MCG IVP (16:43)
--- NOTE | 2023-11-05 16:44 | ED.NURSE ---
Daughter stated patient recently had UTI and is still currently on antibiotics. Dr. Fierro notified of this.
[2023-11-05 16:48] LABS: Basophils Absolute Auto 0.01 K/uL (0.00-0.30); Basophils Percent Auto 0.2 % (0.0-3.0); Eosinophils Percent Auto 3.6 % (0.0-7.0); Hematocrit 40.2 % (33.0-51.0); Hemoglobin* 12.4 gm/dL (12.0-16.0); Immature Granulocytes Abs Auto 0.01 K/uL (0.00-0.30); Immature Granulocytes Pct Auto 0.2 %; Lymphocytes Absolute Auto 1.73 K/uL (0.90-2.90); Lymphocytes Percent Auto 31.5 % (20-44); Mean Corpuscular HGB Conc 31 gm/dL (32-36); Mean Corpuscular Hemoglobin 29 pg (26-34); Mean Corpuscular Volume 94 fL (80-100); Monocytes Percent Auto 8.6 % (0.0-11.0); Neutrophils Absolute Auto 3.07 K/uL (1.7-7.0); Neutrophils Percent Auto 55.9 % (42.0-72.0); Platelet Count* 209 K/uL (140-440); RDW Coefficient of Variation % 13.9 % (11.5-15.5); Red Blood Count 4.27 m/uL (4.00-5.20); White Blood Count* 5.49 K/uL (4.50-11.00)
[2023-11-05 16:58] LABS: Chloride* 106 mmol/L (96-114); Potassium* 4.8 mmol/L (3.6-5.1); Sodium* 139 mmol/L (135-149)
[2023-11-05 17:01] LABS: Anion Gap 8 mEq/L (7-15); Blood Urea Nitrogen* 21 mg/dL (7-30); Calcium* 9.6 mg/dL (8.4-10.6); Carbon Dioxide* 25 mmol/L (20-32); Creatinine* 0.9 mg/dL (0.5-1.5); Estimated Glomerular Filt Rate 61 ml/min; Glucose* 135 mg/dL (60-115)
[2023-11-05 17:03] LABS: Slide Review Reflex No
[2023-11-05] MEDS: ONDANSETRON 2 MG/ML inj 4 MG IVP ×2 (17:05→21:53)
[2023-11-05] MEDS: HYDROmorphone 0.5 mg/0.5 ml inj IVP ×3 (17:45→23:56)
--- NOTE | 2023-11-05 18:02 | ED.NURSE ---
Attempted to place King due to mobility concerns and skin integrity. 2 attempts made, unsuccessful due to labial and groin swelling. Provider notified. Will utilized brief and frequent changes to maintain skin integrity at this time.
--- NOTE | 2023-11-05 19:43 | PM.IMHP1 ---
Hospitalist- H&P: HPI History of Present Illness Date Seen: 11/05/23 Chief complaint: Hip pain Narrative: Amberly Darnell is a 88 year old female who presented to the ED after an unwitnessed fall from wheelchair. Lives at [facility], primarily is in her wheelchair except for self-transfers. Found on the floor today with a deformed RLE and complaints of pain. ER Course and findings: - reassuring EKG and labs - soft tissue mass noted R thoracic region, not noted in previous imaging - R femoral neck fracture on XR, ER physician reviewed with Orthopedic Surgery team, and they will see her tomorrow Patient is admitted with daughter Alison in room, who assists in providing history. Review of Systems Status of ROS: Reports: unobtainable due to mental status Narrative: - patient unable to provide history - daughter notes chronic cough, unsure about any aspiration [facility] History (Updated 11/05/23 @ 20:04 by Marie Castro MD) Cognitive impairment ?R41.89 - Other symptoms and signs involving cognitive functions and awareness (ICD-10) Hearing loss ?H91.90 - Unspecified hearing loss, unspecified ear (ICD-10) Adenoma of left adrenal gland ?D35.02 - Benign neoplasm of left adrenal gland (ICD-10) Insomnia ?G47.00 - Insomnia, unspecified (ICD-10) Osteoporosis ?M81.0 - Age-related osteoporosis without current pathological fracture (ICD-10) Peripheral neuropathy ?G62.9 - Polyneuropathy, unspecified (ICD-10) Sensorineural hearing loss of both ears ?H90.3 - Sensorineural hearing loss, bilateral (ICD-10) Vitamin D deficiency ?E55.9 - Vitamin D deficiency, unspecified (ICD-10) Essential hypertension ?I10 - Essential (primary) hypertension (ICD-10) Hypothyroidism ?E03.9 - Hypothyroidism, unspecified (ICD-10) Spinal stenosis ?M48.00 - Spinal stenosis, site unspecified (ICD-10) Hiatal hernia ?K44.9 - Diaphragmatic hernia without obstruction or gangrene (ICD-10) 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 ?F01.50 - Vascular dementia without behavioral disturbance (ICD-10) COPD (chronic obstructive pulmonary disease) ?J44.9 - Chronic obstructive pulmonary disease, unspecified (ICD-10) GERD (gastroesophageal reflux disease) ?K21.9 - Gastro-esophageal reflux disease without esophagitis (ICD-10) Paroxysmal SVT (supraventricular tachycardia) ?I47.1 - Supraventricular tachycardia (ICD-10) Adrenal mass ?E27.8 - Other specified disorders of adrenal gland (ICD-10) Surgical History Status post tonsillectomy ?Z90.89 - Acquired absence of other organs (ICD-10) S/P laparotomy ?Z98.890 - Other specified postprocedural states (ICD-10) Status post left knee replacement ?Z96.652 - Presence of left artificial knee joint (ICD-10) History of hysterectomy ?Z90.710 - Acquired absence of both cervix and uterus (ICD-10) S/P repair of paraesophageal hernia ?Z98.890 - Other specified postprocedural states (ICD-10) ?Z87.19 - Personal history of other diseases of the digestive system (ICD-10) Previous back surgery ?Z98.890 - Other specified postprocedural states (ICD-10) Status post appendectomy ?Z90.49 - Acquired absence of other specified parts of digestive tract (ICD-10) S/P knee replacement ?Z96.659 - Presence of unspecified artificial knee joint (ICD-10) Family History Father COPD (chronic obstructive pulmonary disease) High blood pressure Mother Dementia Psychiatric illness Social History (Updated 11/05/23 @ 20:05 by Marie Castro MD) Narrative: 2 adult children in [place] (they share POA duties). Currently lives at [facility] in Memory Care. What is your current living situation?: I presently have a place to live Problems where you live: no known problems Problems where you live details: lives at [facility] [place] In the past 12 months, utilities in danger of being shut off: no In past 12 months, lack of transportation kept you from medical appts, meetings, work, or getting things needed for daily living: no In the past 12 mos, have been you worried that your food would run out before you had money to buy more?: never true In the past 12 mos, the food you bought just didn't last and you didn't have money to buy more?: never true Highest level of school completed/degree received: high school graduate Smoking Status: Never smoker Do you use any of these nicotine containing products: None Second hand tobacco smoke exposure: No How often do you have a drink containing alcohol: never How often do you have six or more drinks on one occasion: Never AUDIT-C Alcohol total score: 0 Non-prescribed substance use: denies use Caffeine: No How often does anyone, including family, friends and others, physically hurt you: never How often does anyone, including family, friends and others, insult or talk down to you: never How often does anyone, including family, friends and others, threaten you with harm: never How often does anyone, including family, friends and others, scream or curse at you: never Gender Identity: female service: No Meds Home Medications and Allergies Home Medications Medication Instructions Recorded Confirmed Type levothyroxine 50 mcg tablet 50 mcg PO DAILY 05/08/22 11/05/23 History metoprolol succinate 25 mg 25 mg PO DAILY 05/08/22 11/05/23 History tablet,extended release 24 hr omeprazole 20 mg capsule,delayed 20 mg PO DAILY 05/08/22 11/05/23 History release risedronate 35 mg tablet 35 mg PO .WED@06 05/08/22 11/05/23 History tiotropium bromide 18 mcg capsule 1 cap inhalation DAILY 05/08/22 11/05/23 History with inhalation device (Spiriva with HandiHaler) sertraline 100 mg tablet 150 mg PO DAILY 07/02/22 11/05/23 History acetaminophen 500 mg tablet 1,000 mg PO BID 11/05/23 11/05/23 History cetirizine 10 mg tablet (24Hour 10 mg PO DAILY 11/05/23 11/05/23 History Allergy) guaifenesin 100 mg/5 mL oral 100 mg PO Q4H PRN 11/05/23 11/05/23 History liquid (Adult Wal-Tussin) loperamide 2 mg tablet 2 mg PO TID PRN 11/05/23 11/05/23 History (Anti-Diarrheal (loperamide)) melatonin 5 mg tablet 5 mg PO HS 11/05/23 11/05/23 History metformin 500 mg tablet 500 mg PO DAILY 11/05/23 11/05/23 History mirtazapine 15 mg tablet 15 mg PO HS 11/05/23 11/05/23 History tramadol 50 mg tablet 50 mg PO Q8H PRN 11/05/23 11/05/23 History Allergies Allergy/AdvReac Type Severity Reaction Status Date / Time codeine Allergy Intermediate Hives Verified 06/16/22 09:19 lisinopril Allergy Intermediate Cough Verified 06/16/22 09:19 alendronate sodium AdvReac Intermediate Nausea Verified 06/16/22 09:19 Exam Narrative: Exam Narrative: GEN: Patient is laying in bed, intermittently resting HEENT: No scleral icterus CV: RRR, No concerning murmurs R: Decreased breath sounds bilateral bases Ext: Right lower extremity externally rotated, no edema Neuro: Nonfocal Psych: No anxiety, cognitive impairment is evident Const: Vital Signs, click to edit/add: Vital Signs - 24 hr 11/05/23 16:18 11/05/23 16:21 11/05/23 16:32 Temperature 99.0 F Pulse Rate 69 Pulse Rate [Pulse Oximeter] 75 Respiratory Rate 18 Blood Pressure Blood Pressure [Le ft Arm] Blood Pressure [Le ft Upper Arm] 159/102 H Pulse Oximetry 93 88 94 Oxygen Delivery Me thod Room Air Oxygen Flow Rate 11/05/23 17:00 11/05/23 17:02 11/05/23 17:30 Temperature Pulse Rate 71 69 70 Pulse Rate [Pulse Oximeter] Respiratory Rate Blood Pressure 166/87 H Blood Pressure [Le ft Arm] Blood Pressure [Le ft Upper Arm] Pulse Oximetry 92 90 91 Oxygen Delivery Me thod Oxygen Flow Rate 11/05/23 17:32 11/05/23 17:45 11/05/23 18:00 Temperature Pulse Rate 76 78 Pulse Rate [Pulse Oximeter] Respiratory Rate Blood Pressure 168/113 H Blood Pressure [Le ft Arm] Blood Pressure [Le ft Upper Arm] Pulse Oximetry 92 95 96 Oxygen Delivery Me thod Nasal Cannula Oxygen Flow Rate 2 11/05/23 18:03 11/05/23 19:14 11/05/23 19:14 Temperature 97.7 F Pulse Rate 78 Pulse Rate [Pulse Oximeter] 79 Respiratory Rate 18 Blood Pressure 123/65 Blood Pressure [Le ft Arm] 150/73 H Blood Pressure [Le ft Upper Arm] Pulse Oximetry 95 98 98 Oxygen Delivery Me thod Nasal Cannula Nasal Cannula Oxygen Flow Rate 2 2 Hospitalist - H&P: Result Labs Labs: Short CBC 11/05/23 Range/Units 16:18 WBC 5.49 (4.50-11.00) K/uL Hgb 12.4 (12.0-16.0) gm/dL Hct 40.2 (33.0-51.0) % Plt Count 209 (140-440) K/uL BMP 11/05/23 16:18 Sodium 139 Potassium 4.8 Chloride 106 Carbon Dioxide 25 BUN 21 Creatinine 0.9 Glucose 135 H Calcium 9.6 Assessment and Plan Assessment and plan (1) Closed hip fracture: Problem comment: - R impacted/comminuted femoral neck fracture - Orthopedic surgery aware - no history of surgical or anesthetic complications in the past Status: Acute (2) Fall: Status: Acute (3) Mass in chest: Problem comment: - unclear clinical significance, will repeat 2V CXR to further assess - daughter Alison aware Status: Acute (4) Recurrent UTI: Problem comment: - recently started on Cephalexin as outpatient Status: Acute (5) Hearing loss: Problem comment: - chronic, uses hearing aids Status: Acute (6) Cognitive impairment: Problem comment: - no evidence of agitation Status: Acute
[2023-11-05] MEDS: ACETAMINOPHEN 500 MG TABLET 1000 MG PO (20:15)
[2023-11-05] MEDS: cephALEXin 500 MG CAPSULE PO (20:15)
[2023-11-05] MEDS: SODIUM CHLORIDE 0.9 % (FLUSH) 10 ML SYRINGE 5 ML IVF ×2 (20:22→23:57)
[2023-11-05] MEDS: MORPHINE 2 MG/ML inj IVP (22:23)
--- NOTE | 2023-11-05 22:32 | PC.NURSE ---
Addendum entered by Odalys Higuera RN 11/05/23 22:37: RLE is noticeable shorter than LLE in length. Bilateral pedal pulses intact, diminished on both sides. RLE is cooler to the touch whereas LLE is warm to the touch. Original Note: End of shift [id number]: Pt arrived to unit around 1900. Pt has been alert but oriented to self only. Frequently asks the same questions and repeats the same statements over and over again d/t h/o Alzheimer's dementia. She is very [place]- bilateral hearing aides are charging at bedside. Pt continues to complain of being in so much pain- PRN Dilaudid given last @ 2014 and PRN morphine given x1 @ 2219. Pt had an episode of dry heaves at around 2144 so PRN zofran given x1 dose @ 2149. PIV in right wrist is SL and C/D/I, pt was a very difficult IV stick in the ER. King placed upon arrival to med/surg- draining clear, yellow urine. Very little output so far. Pt is requiring 1L NC d/t the amount of narcotics she received in the ER and on the unit. Bedrest ordered overnight with consult to orthopaedics for surgery. Pt will be NPO at 0000.
[2023-11-06] VITALS (22 sets, daily range): BP systolic 101–132; BP diastolic 45–85; PULSE 68–93; RESP 12–18; TEMP 35.9–37.1; O2SAT 92–100
--- NOTE | 2023-11-06 05:15 | PC.NURSE ---
[id number] Pt restless at beginning of shift, but eventually fell asleep and remained comfortable. RLE warm to touch with good cap refill, unable to palpate pedal pulse, patient able to moved RLE toes. King patent and draining. 2LPM O2 NC required to maintain sats >88%, pt desats to uppers 70's low 80s with RA. Unable to rate pain using number scale but RN able to assess pain using non verbal indicators/faces. slight repositioning only during shift due to R hip fx.
[2023-11-06 06:55] LABS: Basophils Absolute Auto 0.02 K/uL (0.00-0.30); Basophils Percent Auto 0.3 % (0.0-3.0); Eosinophils Absolute Auto 0.02 K/uL (0.00-0.50); Eosinophils Percent Auto 0.3 % (0.0-7.0); Hematocrit 35.1 % (33.0-51.0); Hemoglobin* 10.6 gm/dL (12.0-16.0); Immature Granulocytes Abs Auto 0.01 K/uL (0.00-0.30); Immature Granulocytes Pct Auto 0.2 %; Lymphocytes Percent Auto 16.7 % (20-44); Mean Corpuscular HGB Conc 30 gm/dL (32-36); Mean Corpuscular Hemoglobin 29 pg (26-34); Mean Corpuscular Volume 96 fL (80-100); Monocytes Percent Auto 8.7 % (0.0-11.0); Neutrophils Percent Auto 73.8 % (42.0-72.0); Platelet Count* 194 K/uL (140-440); Red Blood Count 3.67 m/uL (4.00-5.20); White Blood Count* 6.53 K/uL (4.50-11.00)
[2023-11-06 06:59] LABS: Slide Review Reflex No
[2023-11-06 07:00] LABS: Chloride* 106 mmol/L (96-114); Potassium* 4.9 mmol/L (3.6-5.1); Sodium* 140 mmol/L (135-149)
[2023-11-06 07:02] LABS: Creatinine* 0.9 mg/dL (0.5-1.5); Est. Creatinine Clearance* 30.76; Estimated Glomerular Filt Rate 61 ml/min
[2023-11-06 07:03] LABS: Anion Gap 6 mEq/L (7-15); Blood Urea Nitrogen* 20 mg/dL (7-30); Calcium* 8.8 mg/dL (8.4-10.6); Carbon Dioxide* 28 mmol/L (20-32); Glucose* 140 mg/dL (60-115)
--- NOTE | 2023-11-06 07:25 | CRLHL7_ITS ---
For Patients: As a result of the Century Cures Act, medical imaging exams and procedure reports are released immediately into your electronic medical record. You may view this report before your referring provider. If you have questions, please contact your health care provider. INDICATION: Right mediastinal mass seen on chest radiograph. TECHNIQUE: CT chest was acquired with 75 cc Isovue 370 IV contrast. COMPARISON: Chest radiograph from 11/05/2023. FINDINGS: Lungs and pleura: Scattered noncalcified pulmonary nodules including a right upper lobe nodule measuring 5 mm (series 3, image 25), 6 mm right middle lobe subpleural nodule (image 58), punctate right middle lobe nodule (image 54). No focal consolidation. No pleural effusions, pleural thickening, or pneumothorax. Heart and vasculature: The heart is normal in size. No pericardial effusion. Atherosclerotic aortic and coronary artery calcifications. Mitral annular calcification. Left vertebral artery arises directly from the aorta. Enlarged main pulmonary artery. Lymph nodes/mediastinum: No mediastinal, hilar, or axillary adenopathy. No mediastinal mass is identified. The right paratracheal opacity on radiographs corresponds with a tortuous right subclavian artery/SVC. Left thyroid nodule measures 2.4 cm. Small hiatal hernia. Chest wall: No masses. Upper abdomen: Small layering gallstones within the gallbladder body. No biliary ductal dilation. Atrophic pancreas. 2.7 x 1.7 cm hypodense left adrenal nodule. Of note, prior images are not available for comparison; however, CT report dated 05/27/2018 notes a 2.9 cm left adrenal nodule. Bones: The bones are diffusely demineralized. Posttraumatic deformity of several ribs. Severe right glenohumeral osteoarthritis. Exaggerated thoracic kyphosis with multilevel degenerative disc disease involving the thoracic spine. There is a chronic appearing superior endplate compression deformity at T11 without associated retropulsion. IMPRESSION: 1. No mediastinal mass. 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 2. Left thyroid nodule measuring 2.4 cm. This could be further evaluated with thyroid ultrasound as clinically indicated. 3. Indeterminate left adrenal nodule measuring 2.7 cm. While prior imaging is not available for comparison, prior CT report from 2018 notes a similar-sized left adrenal nodule. 4. Age-indeterminate but chronic appearing T11 osteoporotic compression fracture. 5. Small pulmonary nodules. If the patient is at increased risk for lung cancer, consider repeat chest CT in 12 months according to Fleischner Society recommendations. Please note that all CT scans at this facility use dose modulation, iterative reconstruction, and/or weight-based dosing when appropriate to reduce radiation dose to as low as reasonably achievable. Dictated by Alycia Feng MD @ 11/06/2023 9:04:26 AM (Electronically Signed)
[2023-11-06] MEDS: SODIUM CHLORIDE 0.9 % (FLUSH) 10 ML SYRINGE 5 ML IVF ×2 (09:59→23:35)
--- NOTE | 2023-11-06 10:15 | CRLHL7_ITS ---
For Patients: As a result of the Cures Act, medical imaging exams and procedure reports are released immediately into your electronic medical record. You may view this report before your referring provider. If you have questions, please contact your health care provider. Indication: RIGHT FEMUR ORIF Technique: 5 fluoroscopic images of the right proximal femur. Fluoroscopic time 109.3 seconds. IMPRESSION: Fluoroscopic guidance for ORIF right proximal femoral fracture. Dictated by Nakul Chambers MD @ 11/06/2023 12:33:01 PM (Electronically Signed)
[2023-11-06] MEDS: LACTATED RINGERS 1000 ML 1,000 ML 100 ML IV (10:47)
--- NOTE | 2023-11-06 10:56 | REH.OT ---
Orders received for OT/PT eval and treat. Patient having surgery today for hip fracture. She will be seen on 11/07/23 for therapies.
[2023-11-06] MEDS: CEFAZOLIN 1 GM inj IVP (11:08)
--- NOTE | 2023-11-06 11:51 | SUR.OPER ---
PATIENT/P.O.A./FAMILY QUESTIONS ANSWERED SATISFACTORILY PREOPERATIVELY. PATIENT BROUGHT TO OR #4 PER M/S BED, ADMINISTRATION OF A BLOCK PRIOR TO MOVING THE PT. ON TO THE HANA TABLE. Patient positioned supine on OR #4 bed. The perioperative team supported arms bilaterally on arm boards. Final approval of positioning by surgeon.
--- NOTE | 2023-11-06 12:17 | P.NB_ITS ---
Nerve Block Nerve Block Time Seen by Provider: 11:12 Date Seen: 11/06/23 Type of block requested by surgeon for post-operative analgesia: TAP Side: right Time out performed: Yes Verification of patient name: Yes Verification of date of : Yes Site marking: site marked Name of person performing procedure: Skyler Continuous monitoring Was continuous monitoring of O2 sat, B/P, cardiac catheterization technician, recorded every 15 minutes?: Yes Procedure Checklist: sterile prep, needles and gloves Ultrasound guided. Images saved: Yes Medications given in 5ml increments after negative aspiration: Marcaine %: 0.25 mL: 30 Needle gauge: 20 and Exparel mL: 10 Patient tolerated procedure well: Yes Additional comments: Needle noted between internal oblique and transversus abdominus. Local spread visualized Block Charges Block Charge (with Pro Fee): TAP Bilateral Use of Ultrasound Machine for Block: Yes- US Guidance/pain block
--- NOTE | 2023-11-06 12:18 | W.ANESCHARGE ---
Anesthesia Charges Start Date/Time Anesthesia Start Date: 11/06/23 Anesthesia Start Time: 10:49 Stop Date/Time Anesthesia Stop Date: 11/06/23 Anesthesia Stop Time: 12:35 Summary Extremes of Age - Over 70 or under 1: MDA
--- NOTE | 2023-11-06 12:27 | P.ORPRC_ITS ---
Procedure Note Date of procedure: 11/06/23 Procedure: PREOPERATIVE DIAGNOSIS: Right hip 2 part intertrochanteric fracture POSTOPERATIVE DIAGNOSIS: Right hip 2 part intertrochanteric fracture NAME OF OPERATION: Right hip fracture ORIF SURGEON: Favian Strauss MD CLIENT RELATIONS SPECIALIST: ELIANE Lundberg IMPLANTS: Synthes intramedullary hip screw 12 mm x 170 mm with a 95 mm lag screw and a 38 mm distal interlocking screw ANESTHESIA: Spinal ESTIMATED BLOOD LOSS: 25 mL COMPLICATIONS: None SPECIMENS: None DRAINS: None PREOPERATIVE ANTIBIOTICS: Ancef 1 gram INDICATIONS: The patient is a 88-year-old who fell yesterday sustaining a 2 part intertrochanteric fracture of the right hip. They were admitted for workup and care. They have been medically cleared for surgery. The risks, benefits and expected outcomes were discussed in detail with the patient's daughter and [id number]. These included but were not limited to: Infection, bleeding, injury to blood vessel or nerve, venous thromboembolism. All questions were answered to their satisfaction. Use of an workforce development assistant was necessary for patient positioning and safety, soft tissue retraction and closure, dressing application, and transfer of the patient to and from the hospital bed to the fracture table. PROCEDURE: Spinal anesthesia was administered. The patient was placed supine on the fracture table. The right lower extremity was prepped and draped in the usual sterile fashion. The limb was placed in longitudinal traction. Our provisional reduction was confirmed with the C-arm. The guide pin was placed percutaneously to the tip of the greater trochanter. It was advanced into the canal. Its placement was confirmed with the image intensifier in both AP and lateral views. We then made a stab incision around the guide pin. The soft tissue sleeve was advanced to the tip of the trochanter. The opening reamer was used. The intramedullary nail was placed. The guide pin was taken to the subchondral bone of the femoral head on both the AP and lateral views. It was placed in the central, inferior aspect of the head. The drill was used. We placed the 95 mm lag screw. Our reduction remains anatomic. Traction was released. The lag screw was set to dynamic mode. That is it was not locked. We placed a 38 mm distal interlocking screw. This construct was imaged in the AP and lateral views and was felt to be well placed with an anatomic reduction. The wounds were irrigated with normal saline. They were closed with Vicryl deep and Monocryl in the skin. A dry dressing was applied. Sponge and needle counts were correct x2. The patient tolerated the procedure well. There were no apparent complications. They were carefully transferred to the hospital bed and taken to the postanesthesia care unit in satisfactory condition. PLAN: The patient will be mobilized with physical therapy. They may weightbear as tolerates on the right lower extremity. Xarelto will be used for DVT prophylaxis. They will be discharged to a alf once medically appropriate.
--- NOTE | 2023-11-06 12:30 | P.ORCN_ITS ---
History of Present Illness HPI Date Seen: 11/06/23 Chief complaint: Hip pain Narrative: The patient is an 88-year-old wheelchair dependent female who fell from her wheelchair yesterday, sustaining a right hip fracture. She was admitted for workup and definitive care. She has never injured this hip or had surgery on it previously. Her daughter and [id number] provide the history. It has been sometime since she has done any meaningful ambulating. She is wheelchair-bound and stands to pivot and transfer. She has dementia as the baseline. Review of Systems Narrative: The patient denies: Fever, night sweats, shaking chills, nausea, vomiting, diarrhea, chest pain, chest pressure, shortness of breath, no rash, no change in hearing or vision, no issues with bleeding or clotting [facility] Medical History (Updated 11/08/23 @ 21:59 by Bianca Agudelo MD) Dementia ?F03.90 - Unspecified dementia, unspecified severity, without behavioral disturbance, psychotic disturbance, mood disturbance, and anxiety (ICD-10) Cognitive impairment ?R41.89 - Other symptoms and signs involving cognitive functions and awareness (ICD-10) Hearing loss ?H91.90 - Unspecified hearing loss, unspecified ear (ICD-10) Adenoma of left adrenal gland ?D35.02 - Benign neoplasm of left adrenal gland (ICD-10) Insomnia ?G47.00 - Insomnia, unspecified (ICD-10) Osteoporosis ?M81.0 - Age-related osteoporosis without current pathological fracture (ICD- 10) Peripheral neuropathy ?G62.9 - Polyneuropathy, unspecified (ICD-10) Sensorineural hearing loss of both ears ?H90.3 - Sensorineural hearing loss, bilateral (ICD-10) Vitamin D deficiency ?E55.9 - Vitamin D deficiency, unspecified (ICD-10) Essential hypertension ?I10 - Essential (primary) hypertension (ICD-10) Hypothyroidism ?E03.9 - Hypothyroidism, unspecified (ICD-10) Spinal stenosis ?M48.00 - Spinal stenosis, site unspecified (ICD-10) Hiatal hernia ?K44.9 - Diaphragmatic hernia without obstruction or gangrene (ICD-10) 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 ?F01.50 - Vascular dementia without behavioral disturbance (ICD-10) COPD (chronic obstructive pulmonary disease) ?J44.9 - Chronic obstructive pulmonary disease, unspecified (ICD-10) GERD (gastroesophageal reflux disease) ?K21.9 - Gastro-esophageal reflux disease without esophagitis (ICD-10) Paroxysmal SVT (supraventricular tachycardia) ?I47.1 - Supraventricular tachycardia (ICD-10) Adrenal mass ?E27.8 - Other specified disorders of adrenal gland (ICD-10) Surgical History Status post tonsillectomy ?Z90.89 - Acquired absence of other organs (ICD-10) S/P laparotomy ?Z98.890 - Other specified postprocedural states (ICD-10) Status post left knee replacement ?Z96.652 - Presence of left artificial knee joint (ICD-10) History of hysterectomy ?Z90.710 - Acquired absence of both cervix and uterus (ICD-10) S/P repair of paraesophageal hernia ?Z98.890 - Other specified postprocedural states (ICD-10) ?Z87.19 - Personal history of other diseases of the digestive system (ICD-10) Previous back surgery ?Z98.890 - Other specified postprocedural states (ICD-10) Status post appendectomy ?Z90.49 - Acquired absence of other specified parts of digestive tract (ICD- 10) S/P knee replacement ?Z96.659 - Presence of unspecified artificial knee joint (ICD-10) Family History Father COPD (chronic obstructive pulmonary disease) High blood pressure Mother Dementia Psychiatric illness Social History Narrative: 2 adult children in [place] (they share POA duties). Currently lives at [facility] in Memory Care. What is your current living situation?: I presently have a place to live Problems where you live: no known problems Problems where you live details: lives at [facility] [place] In the past 12 months, utilities in danger of being shut off: no In past 12 months, lack of transportation kept you from medical appts, meetings, work, or getting things needed for daily living: no In the past 12 mos, have been you worried that your food would run out before you had money to buy more?: never true In the past 12 mos, the food you bought just didn't last and you didn't have money to buy more?: never true Highest level of school completed/degree received: high school graduate Smoking Status: Never smoker Do you use any of these nicotine containing products: None Second hand tobacco smoke exposure: No How often do you have a drink containing alcohol: never How often do you have six or more drinks on one occasion: Never AUDIT-C Alcohol total score: 0 Non-prescribed substance use: denies use Caffeine: No How often does anyone, including family, friends and others, physically hurt you : never How often does anyone, including family, friends and others, insult or talk down to you: never How often does anyone, including family, friends and others, threaten you with harm: never How often does anyone, including family, friends and others, scream or curse at you: never Gender Identity: female service: No Meds Home Medications and Allergies Home Medications Medication Instructions Recorded Confirmed Type levothyroxine 50 mcg tablet 50 mcg PO DAILY 05/08/22 11/05/23 History metoprolol succinate 25 mg 25 mg PO DAILY 05/08/22 11/05/23 History tablet,extended release 24 hr omeprazole 20 mg capsule,delayed 20 mg PO DAILY 05/08/22 11/05/23 History release risedronate 35 mg tablet 35 mg PO .WED@06 05/08/22 11/05/23 History tiotropium bromide 18 mcg capsule 1 cap inhalation DAILY 05/08/22 11/05/23 History with inhalation device (Spiriva with HandiHaler) sertraline 100 mg tablet 150 mg PO DAILY 07/02/22 11/05/23 History acetaminophen 500 mg tablet 1,000 mg PO BID 11/05/23 11/05/23 History cetirizine 10 mg tablet (24Hour 10 mg PO DAILY 11/05/23 11/05/23 History Allergy) guaifenesin 100 mg/5 mL oral 100 mg PO Q4H PRN 11/05/23 11/05/23 History liquid (Adult [employer]) loperamide 2 mg tablet 2 mg PO TID PRN 11/05/23 11/05/23 History (Anti-Diarrheal (loperamide)) melatonin 5 mg tablet 5 mg PO HS 11/05/23 11/05/23 History metformin 500 mg tablet 500 mg PO DAILY 11/05/23 11/05/23 History mirtazapine 15 mg tablet 15 mg PO HS 11/05/23 11/05/23 History tramadol 50 mg tablet 50 mg PO Q8H PRN 11/05/23 11/05/23 History Allergies Allergy/AdvReac Type Severity Reaction Status Date / Time codeine Allergy Intermediate Hives Verified 11/06/23 08:47 lisinopril Allergy Intermediate Cough Verified 11/06/23 08:47 alendronate sodium AdvReac Intermediate Nausea Verified 11/06/23 08:47 Ortho Exam Narrative Exam Narrative: Alert and interactive The patient is examined supine on the hospital bed. The skin about the right hip is intact and normal. CMS to the foot is normal. Const Vital Signs, click to edit/add: Vital Signs - 24 hr 11/05/23 16:18 11/05/23 16:21 11/05/23 16:32 Temperature 99.0 F Pulse Rate 69 Pulse Rate [Pulse Oximeter] 75 Respiratory Rate 18 Blood Pressure Blood Pressure [Left Arm] Blood Pressure [Left Upper Arm] 159/102 H Pulse Oximetry 93 88 94 Oxygen Delivery Method Room Air Oxygen Flow Rate 11/05/23 17:00 11/05/23 17:02 11/05/23 17:30 Temperature Pulse Rate 71 69 70 Pulse Rate [Pulse Oximeter] Respiratory Rate Blood Pressure 166/87 H Blood Pressure [Left Arm] Blood Pressure [Left Upper Arm] Pulse Oximetry 92 90 91 Oxygen Delivery Method Oxygen Flow Rate 11/05/23 17:32 11/05/23 17:45 11/05/23 18:00 Temperature Pulse Rate 76 78 Pulse Rate [Pulse Oximeter] Respiratory Rate Blood Pressure 168/113 H Blood Pressure [Left Arm] Blood Pressure [Left Upper Arm] Pulse Oximetry 92 95 96 Oxygen Delivery Method Nasal Cannula Oxygen Flow Rate 2 11/05/23 18:03 11/05/23 19:14 11/05/23 19:14 Temperature 97.7 F Pulse Rate 78 Pulse Rate [Pulse Oximeter] 79 Respiratory Rate 18 Blood Pressure 123/65 Blood Pressure [Left Arm] 150/73 H Blood Pressure [Left Upper Arm] Pulse Oximetry 95 98 98 Oxygen Delivery Method Nasal Cannula Nasal Cannula Oxygen Flow Rate 2 2 11/05/23 23:00 11/05/23 23:54 11/06/23 02:06 Temperature 97.8 F 97.5 F L Pulse Rate Pulse Rate [Pulse Oximeter] 68 78 77 Respiratory Rate 12 12 14 Blood Pressure Blood Pressure [Left Arm] 85/49 L 117/57 L 114/85 Blood Pressure [Left Upper Arm] Pulse Oximetry 93 95 96 Oxygen Delivery Method Nasal Cannula Nasal Cannula Nasal Cannula Oxygen Flow Rate 2 2 2 11/06/23 09:53 Temperature 98.7 F Pulse Rate Pulse Rate [Pulse Oximeter] 77 Respiratory Rate 18 Blood Pressure Blood Pressure [Left Arm] 115/81 Blood Pressure [Left Upper Arm] Pulse Oximetry 94 Oxygen Delivery Method Nasal Cannula Oxygen Flow Rate 1 Results Labs Labs: Laboratory Results - last 48 hr 11/05/23 11/06/23 16:18 05:48 WBC 5.49 6.53 RBC 4.27 3.67 L Hgb 12.4 10.6 L Hct 40.2 35.1 MCV 94 96 MCH 29 29 MCHC 31 L 30 L RDW Coeff of Aristeo 13.9 14.0 Plt Count 209 194 Neut % (Auto) 55.9 73.8 H Lymph % (Auto) 31.5 16.7 L [place] % (Auto) 8.6 8.7 Eos % (Auto) 3.6 0.3 Baso % (Auto) 0.2 0.3 Neut # (Auto) 3.07 4.80 Lymph # (Auto) 1.73 1.10 [place] # (Auto) 0.50 0.60 Eos # (Auto) 0.20 0.02 Baso # (Auto) 0.01 0.02 Abs Immat Gran (auto) 0.01 0.01 Imm/Tot Granulo (auto) 0.2 0.2 Sodium 139 140 Potassium 4.8 4.9 Chloride 106 106 Carbon Dioxide 25 28 Anion Gap 8 6 L BUN 21 20 Creatinine 0.9 0.9 Estimated Creat Clear 30.76 Estimated GFR 61 61 Glucose 135 H 140 H Calcium 9.6 8.8 Diagnostic results Additional Comments: X-rays: An AP pelvis, AP and cross-table lateral view of the right hip show a 2 part intertrochanteric fracture. There is no pre-existing hip joint arthritis. There is no obvious pathologic lesion. Assessment and Plan Assessment and plan (1) Closed hip fracture: Problem comment: status post right hip ORIF with intramedullary nail (DOS: 11/06/2023, Dr. Strauss) no operative complications are apparent Status: Acute Total time spent: Total time spent is greater than 50% in coordination of care (as documented) at patient's floor/unit and/or counseling patient: (2) Fall: Status: Acute Total time spent: Total time spent is greater than 50% in coordination of care (as documented) at patient's floor/unit and/or counseling patient: (3) Mass in chest: Problem comment: - CT scan of chest with contrast obtained on 11/06/2023 demonstrated the followin. No mediastinal mass. 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 - daughter Alison aware Status: Acute Total time spent: Total time spent is greater than 50% in coordination of care (as documented) at patient's floor/unit and/or counseling patient: (4) Recurrent UTI: Problem comment: UTI due to Klebsiella diagnosed on October 23. Klebsiella sensitive to cephalexin. Outpatient treatment with cephalexin. Perioperative antibiotics with Ancef. Unclear if this is symptomatic. Status: Acute Total time spent: Total time spent is greater than 50% in coordination of care (as documented) at patient's floor/unit and/or counseling patient: (5) Hearing loss: Problem comment: - chronic, uses hearing aids Status: Acute Total time spent: Total time spent is greater than 50% in coordination of care (as documented) at patient's floor/unit and/or counseling patient: (6) Cognitive impairment: Problem comment: - no evidence of agitation - lives in Memory Care Unit, [place], [place] - monitor her postoperatively to make a decision as to whether not she can safely return to the memory care unit verses transitional care unit after she stabilizes here in the hospital. Status: Acute Total time spent: Total time spent is greater than 50% in coordination of care (as documented) at patient's floor/unit and/or counseling patient: Plan Assessment: Two part right hip intertrochanteric fracture Plan: The patient has been medically cleared for surgery. Therefore, we will plan to take her the operating room today for ORIF.
--- NOTE | 2023-11-06 12:35 | P.ANES_ITS ---
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
[2023-11-06] MEDS: fentaNYL 100 MCG/2 ML inj 50 MCG IVP (12:51)
[2023-11-06] MEDS: LACTATED RINGERS 1000 ML 1,000 ML 75 ML IV (13:44)
--- NOTE | 2023-11-06 15:10 | P.IMPN_ITS ---
Progress Note: A&P Assessment and plan (1) Closed hip fracture: Problem details: - R impacted/comminuted femoral neck fracture - no history of surgical or anesthetic complications in the past - status post orthopedic open reduction internal fixation on 11/06/2023, Dr. Strauss, [facility]. Status: Acute (2) Fall: Status: Acute (3) Mass in chest: Problem details: - CT scan of chest with contrast obtained on 11/06/2023 demonstrated the followin. No mediastinal mass. 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 - daughter Alison aware Status: Acute (4) Recurrent UTI: Problem details: - recently started on Cephalexin as outpatient; will hold while patient receives perioperative IV antibiotics. Status: Acute (5) Hearing loss: Problem details: - chronic, uses hearing aids Status: Acute (6) Cognitive impairment: Problem details: - no evidence of agitation - lives in Memory Care Unit, [place], [place] - monitor her postoperatively to make a decision as to whether not she can safely return to the memory care unit verses transitional care unit after she stabilizes here in the hospital. Status: Acute (7) Thyroid nodule: Problem details: - CT scan of chest obtained on 11/06/2023 demonstrated the following findings: 2. Left thyroid nodule measuring 2.4 cm. This could be further evaluated with thyroid ultrasound as clinically indicated. Status: Acute (8) Adrenal nodule: Problem details: - CT scan of chest on 11/06/2023 demonstrated the following findings: 3. Indeterminate left adrenal nodule measuring 2.7 cm. While prior imaging is not available for comparison, prior CT report from 2018 notes a similar-sized left adrenal nodule. Status: Acute (9) Pulmonary nodules: Problem details: - CT scan of chest obtained on 11/06/2023 demonstrated the following findings: 5. Small pulmonary nodules. If the patient is at increased risk for lung cancer, consider repeat chest CT in 12 months according to Fleischner Society recommendations. Status: Acute Plan 1. Reviewed with patient, daughter, [id number]. 2. Answered their questions. 3. There agree with above stated plans and recommendations. Time Spent With Patient Total time spent: 40 minutes Subjective Date Seen: 11/06/23 Interval history: History of present illness from 11/05/2023 admission: Amberly Darnell is a 88 year old female who presented to the ED after an unwitnessed fall from wheelchair. Lives at [facility], primarily is in her wheelchair except for self-transfers. Found on the floor today with a deformed RLE and complaints of pain. ER Course and findings: - reassuring EKG and labs - soft tissue mass noted R thoracic region, not noted in previous imaging - R femoral neck fracture on XR, ER physician reviewed with Orthopedic Surgery team, and they will see her tomorrow. Hospital day 2. Generally the hip pain is adequately managed when she does not move. Any movement causes pain to worsen. Denies chest heaviness, pressure, tightness, or pain. Denies dyspnea or cough. Denies syncope or near-syncope. Denies nausea vomiting or palpitations. Denies fevers, rigors, diaphoresis. Has been generally healthy recently. Exam Narrative: Exam Narrative: Examined patient in her hospital room with her daughter and her [id number] present. Appears comfortable when not moved. Appears uncomfortable when she is moved. Very hard of hearing. Vision is adequate. Lungs are clear to auscultation. Heart tones with regular rhythm. Abdomen benign. Leg length discrepancy right leg shorter than left. Const: Vital Signs, click to edit/add: Vital Signs - 24 hr 11/05/23 16:18 11/05/23 16:21 11/05/23 16:32 Temperature 99.0 F Pulse Rate 69 Pulse Rate [Pulse Oximeter] 75 Respiratory Rate 18 Blood Pressure Blood Pressure [Le ft Arm] Blood Pressure [Le ft Upper Arm] 159/102 H Pulse Oximetry 93 88 94 Oxygen Delivery Me thod Room Air Oxygen Flow Rate 11/05/23 17:00 11/05/23 17:02 11/05/23 17:30 Temperature Pulse Rate 71 69 70 Pulse Rate [Pulse Oximeter] Respiratory Rate Blood Pressure 166/87 H Blood Pressure [Le ft Arm] Blood Pressure [Le ft Upper Arm] Pulse Oximetry 92 90 91 Oxygen Delivery Me thod Oxygen Flow Rate 11/05/23 17:32 11/05/23 17:45 11/05/23 18:00 Temperature Pulse Rate 76 78 Pulse Rate [Pulse Oximeter] Respiratory Rate Blood Pressure 168/113 H Blood Pressure [Le ft Arm] Blood Pressure [Le ft Upper Arm] Pulse Oximetry 92 95 96 Oxygen Delivery Me thod Nasal Cannula Oxygen Flow Rate 2 11/05/23 18:03 11/05/23 19:14 11/05/23 19:14 Temperature 97.7 F Pulse Rate 78 Pulse Rate [Pulse Oximeter] 79 Respiratory Rate 18 Blood Pressure 123/65 Blood Pressure [Le ft Arm] 150/73 H Blood Pressure [Le ft Upper Arm] Pulse Oximetry 95 98 98 Oxygen Delivery Me thod Nasal Cannula Nasal Cannula Oxygen Flow Rate 2 2 11/05/23 23:00 11/05/23 23:54 11/06/23 02:06 Temperature 97.8 F 97.5 F L Pulse Rate Pulse Rate [Pulse Oximeter] 68 78 77 Respiratory Rate 12 12 14 Blood Pressure Blood Pressure [Le ft Arm] 85/49 L 117/57 L 114/85 Blood Pressure [Le ft Upper Arm] Pulse Oximetry 93 95 96 Oxygen Delivery Me thod Nasal Cannula Nasal Cannula Nasal Cannula Oxygen Flow Rate 2 2 2 11/06/23 09:53 11/06/23 12:30 11/06/23 12:35 Temperature 98.7 F 98.4 F Pulse Rate 72 75 Pulse Rate [Pulse Oximeter] 77 Respiratory Rate 18 12 12 Blood Pressure 103/45 L 114/58 L Blood Pressure [Le ft Arm] 115/81 Blood Pressure [Le ft Upper Arm] Pulse Oximetry 94 95 95 Oxygen Delivery Me thod Nasal Cannula Non Rebreather Mas k Oxygen Flow Rate 1 6 11/06/23 12:40 11/06/23 12:45 11/06/23 12:50 Temperature Pulse Rate 71 71 71 Pulse Rate [Pulse Oximeter] Respiratory Rate 14 12 12 Blood Pressure 114/69 106/84 120/76 Blood Pressure [Le ft Arm] Blood Pressure [Le ft Upper Arm] Pulse Oximetry 96 95 100 Oxygen Delivery Me thod Oxygen Flow Rate 11/06/23 12:55 11/06/23 13:00 11/06/23 13:05 Temperature 97.8 F Pulse Rate 73 75 71 Pulse Rate [Pulse Oximeter] Respiratory Rate 14 14 12 Blood Pressure 120/78 121/59 L 104/67 Blood Pressure [Le ft Arm] Blood Pressure [Le ft Upper Arm] Pulse Oximetry 95 96 95 Oxygen Delivery Me thod Nasal Cannula Nasal Cannula Oxygen Flow Rate 2 2 11/06/23 13:11 11/06/23 13:30 11/06/23 13:45 Temperature 96.7 F L 96.7 F L 96.6 F L Pulse Rate 75 Pulse Rate [Pulse Oximeter] 76 76 Respiratory Rate 18 18 16 Blood Pressure Blood Pressure [Le ft Arm] 116/61 116/58 L 114/73 Blood Pressure [Le ft Upper Arm] Pulse Oximetry 96 95 Oxygen Delivery Me thod Nasal Cannula Nasal Cannula Nasal Cannula Oxygen Flow Rate 2 2 2 11/06/23 14:00 11/06/23 14:23 Temperature 97 F L 97 F L Pulse Rate Pulse Rate [Pulse Oximeter] 68 75 Respiratory Rate 14 14 Blood Pressure Blood Pressure [Le ft Arm] 108/54 L 109/52 L Blood Pressure [Le ft Upper Arm] Pulse Oximetry 96 96 Oxygen Delivery Me thod Nasal Cannula Nasal Cannula Oxygen Flow Rate 2 2 Documenting provider has reviewed patient's vital signs: yes Labs Labs: Laboratory Results - last 24 hr 11/05/23 11/06/23 16:18 05:48 WBC 5.49 6.53 RBC 4.27 3.67 L Hgb 12.4 10.6 L Hct 40.2 35.1 MCV 94 96 MCH 29 29 MCHC 31 L 30 L RDW Coeff of Aristeo 13.9 14.0 Plt Count 209 194 Neut % (Auto) 55.9 73.8 H Lymph % (Auto) 31.5 16.7 L [place] % (Auto) 8.6 8.7 Eos % (Auto) 3.6 0.3 Baso % (Auto) 0.2 0.3 Neut # (Auto) 3.07 4.80 Lymph # (Auto) 1.73 1.10 [place] # (Auto) 0.50 0.60 Eos # (Auto) 0.20 0.02 Baso # (Auto) 0.01 0.02 Abs Immat Gran (auto) 0.01 0.01 Imm/Tot Granulo (auto) 0.2 0.2 Sodium 139 140 Potassium 4.8 4.9 Chloride 106 106 Carbon Dioxide 25 28 Anion Gap 8 6 L BUN 21 20 Creatinine 0.9 0.9 Estimated Creat Clear 30.76 Estimated GFR 61 61 Glucose 135 H 140 H Calcium 9.[address] scan - chest: Attestation: I have reviewed the pertinent imaging results. Radiologist's impression: IMPRESSION: 1. No mediastinal mass. 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 2. Left thyroid nodule measuring 2.4 cm. This could be further evaluated with thyroid ultrasound as clinically indicated. 3. Indeterminate left adrenal nodule measuring 2.7 cm. While prior imaging is not available for comparison, prior CT report from 2018 notes a similar-sized left adrenal nodule. 4. Age-indeterminate but chronic appearing T11 osteoporotic compression fracture. 5. Small pulmonary nodules. If the patient is at increased risk for lung cancer, consider repeat chest CT in 12 months according to Fleischner Society recommendations.
--- NOTE | 2023-11-06 15:33 | PC.SOCIAL ---
Discharge planning- Met with pt's daughter Alison Pryor to discuss discharge plans. Pt lives in memory care at [facility] and family plans for pt to return to [facility] if possible. Pt's family is familiar with [facility]'s neurosurgery spine physician, Sharri Garsia, and would like pt to go to [facility] as first choice. Phone call to Ashu in admissions at [facility] to see if there was bed availability. Ashu informs that there are beds available for a female and they will review referral. Faxed referral (Facesheet, H&P, Ortho procedure note, and medication list) to [facility] at [phone]. Provided update to pt's daughter Alison. Social work will follow up as needed.
[2023-11-06] MEDS: HYDROmorphone 0.5 mg/0.5 ml inj IVP ×3 (16:30→23:34)
[2023-11-06] MEDS: CEFAZOLIN 1 GM in 0.9 % SODIUM CHLORIDE Mini-bag 100 ML IVPB (16:34)
--- NOTE | 2023-11-06 17:40 | PC.NURSE ---
Shift Summary: Patien back to room from PACU @ 1310. Vitals stable and WNL. o2 sats >90% on 1.5L/NC. C/o pain x1, unable to give score, following dilaudid patient appears comfortable in bed. Dressing x2 on right hip dry and intact. Can slightly move toes, MEDICAL CODING AUDITOR <3sec, pulse present. Lung sounds clear. Refused dinner, is having sips of water. C/o some throat soreness and cough following surgery, this has improved.
[2023-11-06] MEDS: ACETAMINOPHEN 325 MG TABLET 650 MG PO (19:41)
[2023-11-06] MEDS: SENNOSIDES 1 TAB TABLET 2 TAB PO (23:32)
[2023-11-07] VITALS (7 sets, daily range): BP systolic 95–147; BP diastolic 59–76; PULSE 75–104; RESP 12–20; TEMP 36.7–37.5; O2SAT 90–98
[2023-11-07] MEDS: CEFAZOLIN 1 GM in 0.9 % SODIUM CHLORIDE Mini-bag 100 ML IVPB (01:13)
[2023-11-07] MEDS: HYDROmorphone 0.5 mg/0.5 ml inj IVP ×2 (03:00→22:18)
--- NOTE | 2023-11-07 04:56 | PC.NURSE ---
[id number] Pt rested well on and off during shift, T&R q2-3h, pt does not tolerate well due to increased pain, unable to move R leg ind and has increased pain with assist. no N/V noted, tolerating oral intake. motley patent and draining. mepilex placed on coccyx preventitavelly. RLE warm to touch, pt able to moved foot and wiggle toes. unable to rate pain, non verbal cues assessed and medicated prn with relief. dressing x2 to R hip, both C/D/I. Pt did not tolerate ice to R hip and removed ice pack herself.
[2023-11-07] MEDS: LACTATED RINGERS 1000 ML 1,000 ML 75 ML IV (05:21)
[2023-11-07] MEDS: LEVOTHYROXINE 50 MCG TABLET PO (06:10)
[2023-11-07] MEDS: 0.9 % SODIUM CHLORIDE 500 ML IV (06:15)
[2023-11-07 06:48] LABS: Hematocrit 30.4 % (33.0-51.0); Hemoglobin* 9.1 gm/dL (12.0-16.0); Mean Corpuscular HGB Conc 30 gm/dL (32-36); Mean Corpuscular Hemoglobin 29 pg (26-34); Mean Corpuscular Volume 96 fL (80-100); Platelet Count* 177 K/uL (140-440); Red Blood Count 3.16 m/uL (4.00-5.20); White Blood Count* 7.34 K/uL (4.50-11.00)
[2023-11-07 07:03] LABS: Slide Review Reflex No
[2023-11-07 07:05] LABS: Sodium* 138 mmol/L (135-149)
[2023-11-07 07:06] LABS: Potassium* 4.6 mmol/L (3.6-5.1)
[2023-11-07 07:08] LABS: Creatinine* 0.8 mg/dL (0.5-1.5); Est. Creatinine Clearance* 30.76; Estimated Glomerular Filt Rate 71 ml/min
[2023-11-07 07:09] LABS: Blood Urea Nitrogen* 18 mg/dL (7-30)
--- NOTE | 2023-11-07 08:33 | PM.ORPN ---
Subjective Subjective Time Seen by Provider: 08:20 Date Seen: 11/07/23 Principal diagnosis: Day 1 s/p right hip ORIF with intramedullary nail Interval history: Amberly is resting comfortably in her bed. Conversation was limited due to dementia and hearing loss (hearing aids were in place). Amberly answers inappropriately to questions asked. She kept talking about a glass of wine she had this morning. She seems quite happy with lots of laughter this morning. Denies pain at rest. Last dose of hydromorphone was at 0300. Last dose of Tylenol was yesterday evening. Christian stockings in place. No family present during this visit. Prior to this admission, Amberly resides at [facility]. Ortho Exam Narrative Exam Narrative: Incision/Dressing: Dressing appears clean and dry. No drainage present. Mepilex intact. Right hip appears mildly swollen but supple with no obvious erythema, fluctuance or excessive warmth. No ecchymosis or erythematous streaking. Warmth around the wound is appropriate. Ice is being utilized as needed. CMS: Intact distally with 2+ Dorsalis pedis and Posterior Tibial pulses. Unable to assess motor strength dorsal and plantar flexion and straight leg raise. Calf: Bilateral calves are supple, with no swelling, pain, tenderness, erythema, discoloration or coolness to the touch. Constitutional: Patient is alert. Unclear if she is oriented to place and time. No acute distress and converses without labored breathing. Patient is quite pleasant and making jokes this morning. Const Vital Signs, click to edit/add: Vital Signs - 24 hr 11/06/23 09:53 11/06/23 12:30 11/06/23 12:35 Temperature 98.7 F 98.4 F Pulse Rate 72 75 Pulse Rate [Pulse Oximeter] 77 Respiratory Rate 18 12 12 Blood Pressure 103/45 L 114/58 L Blood Pressure [Left Arm] 115/81 Pulse Oximetry 94 95 95 Oxygen Delivery Method Nasal Cannula Non Rebreather Mask Oxygen Flow Rate 1 6 11/06/23 12:40 11/06/23 12:45 11/06/23 12:50 Temperature Pulse Rate 71 71 71 Pulse Rate [Pulse Oximeter] Respiratory Rate 14 12 12 Blood Pressure 114/69 106/84 120/76 Blood Pressure [Left Arm] Pulse Oximetry 96 95 100 Oxygen Delivery Method Oxygen Flow Rate 11/06/23 12:55 11/06/23 13:00 11/06/23 13:05 Temperature 97.8 F Pulse Rate 73 75 71 Pulse Rate [Pulse Oximeter] Respiratory Rate 14 14 12 Blood Pressure 120/78 121/59 L 104/67 Blood Pressure [Left Arm] Pulse Oximetry 95 96 95 Oxygen Delivery Method Nasal Cannula Nasal Cannula Oxygen Flow Rate 2 2 11/06/23 13:11 11/06/23 13:30 11/06/23 13:45 Temperature 96.7 F L 96.7 F L 96.6 F L Pulse Rate 75 Pulse Rate [Pulse Oximeter] 76 76 Respiratory Rate 18 18 16 Blood Pressure Blood Pressure [Left Arm] 116/61 116/58 L 114/73 Pulse Oximetry 96 95 Oxygen Delivery Method Nasal Cannula Nasal Cannula Nasal Cannula Oxygen Flow Rate 2 2 2 11/06/23 14:00 11/06/23 14:23 11/06/23 14:45 Temperature 97 F L 97 F L 97.1 F L Pulse Rate Pulse Rate [Pulse Oximeter] 68 75 74 Respiratory Rate 14 14 14 Blood Pressure Blood Pressure [Left Arm] 108/54 L 109/52 L 108/56 L Pulse Oximetry 96 96 96 Oxygen Delivery Method Nasal Cannula Nasal Cannula Nasal Cannula Oxygen Flow Rate 2 2 1.5 11/06/23 15:25 11/06/23 16:03 11/06/23 17:00 Temperature 97.1 F L 98.1 F 98.2 F Pulse Rate Pulse Rate [Pulse Oximeter] 78 79 93 Respiratory Rate 16 16 18 Blood Pressure Blood Pressure [Left Arm] 121/58 L 132/56 L 101/52 L Pulse Oximetry 93 92 98 Oxygen Delivery Method Nasal Cannula Nasal Cannula Nasal Cannula Oxygen Flow Rate 1.5 1.5 2 11/06/23 18:00 11/06/23 19:00 11/06/23 23:00 Temperature 98.7 F 98.8 F Pulse Rate Pulse Rate [Pulse Oximeter] 92 88 91 Respiratory Rate 16 16 16 Blood Pressure Blood Pressure [Left Arm] 121/55 L 117/54 L Pulse Oximetry 92 94 92 Oxygen Delivery Method Nasal Cannula Nasal Cannula Nasal Cannula Oxygen Flow Rate 1.5 1.5 2 11/07/23 03:00 Temperature 98.0 F Pulse Rate Pulse Rate [Pulse Oximeter] 81 Respiratory Rate 12 Blood Pressure Blood Pressure [Left Arm] 120/64 Pulse Oximetry 93 Oxygen Delivery Method Nasal Cannula Oxygen Flow Rate 2 Assessment and Plan Assessment and plan (1) Closed hip fracture: Problem details: Day 1 status post right hip ORIF with intramedullary nail (DOS: 11/06/2023, Dr. Strauss) Status: Acute Assessment and Plan: - Dressing is waterproof. Keep dressing on for 1 week. Remove dressing sooner if becomes saturated. Surgical glue covering the wound. - May shower. No baths. - OT/PT consults. I spoke with Vero who said Amberly did well with minimal pain this morning. Prior to this fall, Amberly ambulates with a wheelchair and pivots for transfers. From a surgical standpoint, Amberly is allowed to weightbear as tolerated on her right lower extremity. - For pain, recommend she transition from hydromorphone to tramadol and Tylenol PRN. Ice and elevate right lower extremity as needed. - For DVT prophylaxis, Christian stockings x 1 month, may remove for 1 hour per day. Also recommend ankle pumps when sedentary. - Anticipate Amberly will require a transitional care center. - Amberly will follow-up with Orthopedics in 1-2 weeks with a PA-Kay for a wound check appointment or alternatively this may be done by nursing staff at her Care Center. Notify our clinic immediately with any wound related concerns. Amberly will follow-up with Dr. Strauss at 6 weeks postoperative. - Notify Orthopedics with any questions or concerns. ([phone])
[2023-11-07] MEDS: ACETAMINOPHEN 325 MG TABLET 650 MG PO ×2 (08:40→13:23)
[2023-11-07] MEDS: SENNOSIDES 1 TAB TABLET 2 TAB PO (08:41)
[2023-11-07] MEDS: SERTRALINE 100 MG TABLET 150 MG PO (08:41)
[2023-11-07] MEDS: RIVAROXABAN 10 MG TABLET PO (08:41)
--- NOTE | 2023-11-07 09:49 | PC.SOCIAL ---
Discharge planning: Received call from [facility] admissions nurse, Carina, stating they have not made a decision on admit for this patient and will have a decision by noon. There are currently no beds available, so they are assessing for a bed that may be available next week. hospital food service worker to follow up as needed.
--- NOTE | 2023-11-07 11:46 | PC.SOCIAL ---
Discharge plan: Received call from [facility] stating they do not have availability for admit Friday or Friday and it is unknown when they might have a bed, so they are unable to accept pt. Called dtr, Alison, who states she was just talking with Elly at [facility] where pt lives and Elly told her pt can return on Friday if she is one person assist. Dtr states if pt can not return and still needs a short term rehab stay, [facility] would be her next choice. At dtr's request, called Elly and secure-faxed packet of information to her for evaluation for re-admit to assisted living on Friday. Also sent packet to [facility] for evaluation for admit in case pt can not return to [facility] at discharge. buffing line set up worker to follow up as needed.
--- NOTE | 2023-11-07 12:54 | PC.NURSE ---
End of Shift Note: Patient has been in a pleasant mood this whole shift. She was laughing with staff as she was being assisted to the recliner. Appear to be in no pain at that time. After she was sitting for a while did complain of pain in both hips. She was then assisted to lay back down and has been sleeping since she laid down. Did not wake for lunch waiting to see if she wakes up and then will order her something she did ok for breakfast with prompting. Is coming due for tylenol at 2 pm will see about getting something for her to eat at that time. She has not voided since cath came out also which was around 11am. Will continue to monitor.
[2023-11-07] MEDS: OLANZapine 5 MG TAB.RAPDIS PO (14:33)
--- NOTE | 2023-11-07 15:39 | PM.IMPN1 ---
Progress Note: A&P Assessment and plan (1) Closed hip fracture: Problem details: Day 1 status post right hip ORIF with intramedullary nail (DOS: 11/06/2023, Dr. Strauss) no operative complications are apparent Status: Acute (2) Adrenal nodule: Problem details: - CT scan of chest on 11/06/2023 demonstrated the following findings: 3. Indeterminate left adrenal nodule measuring 2.7 cm. While prior imaging is not available for comparison, prior CT report from 2018 notes a similar-sized left adrenal nodule. Status: Acute (3) Frail elderly: Status: Acute (4) Hearing loss: Problem details: - chronic, uses hearing aids Status: Acute (5) Multiple falls: Problem details: Return to [facility] at [facility] or discharge to long-term facility depending on patient's recovery from this surgery Status: Acute (6) Recurrent UTI: Problem details: UTI due to Klebsiella diagnosed on October 23. Klebsiella sensitive to cephalexin. Outpatient treatment with cephalexin. Perioperative antibiotics with Ancef. Unclear if this is symptomatic. Status: Acute (7) Mass in chest: Problem details: - CT scan of chest with contrast obtained on 11/06/2023 demonstrated the followin. No mediastinal mass. 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 - daughter Alison aware Status: Acute (8) Dementia: Status: Acute (9) Anemia: Problem details: Acute Anemia due to blood loss from hip fracture. Preop hemoglobin 12.4. Hemoglobin day 1 postop is 9.1. Trend Status: Acute (10) Osteoporosis: Problem details: - CT scan of the chest obtained on 11/06/2023 demonstrated the following findings: 4. Age-indeterminate but chronic appearing T11 osteoporotic compression fracture. Status: Acute Plan Continue in hospital for management of postoperative care. Discharge plan pending recovery from this surgery and level of assistance needed for transfers. Time Spent With Patient Total time spent: Total time spent today is 40 minutes in evaluation management and coordination of care Subjective Date Seen: 11/07/23 Interval history: 88-year-old female seen in followup of right hip fracture status post ORIF yesterday. Procedure performed by Dr. Strauss. No operative complications. Patient had an unwitnessed fall at her [facility]. She primarily is in a wheelchair there but does self transfer. She recently was diagnosed with a UTI due to Klebsiella. Treated with cephalexin for this. Also received Ancef perioperatively for hip fracture prophylaxis. Unknown if this is symptomatic urinary infection. Patient has not had a fever. She remains confused and disoriented to her circumstances and unable to give meaningful history. Exam Narrative: Exam Narrative: She is lying in bed. She is looking at her lunch tray but unsure how to start feeding herself. Respirations are clear to auscultation. Breathing is unlabored. Cardiovascular: S1, S2, regular rate and rhythm. Abdomen is soft without tenderness or mass. Right hip shows no marked swelling bruising or redness. No drainage on the dressings. Distally she has intact pulses and sensation and strength in her ankles and feet Const: Vital Signs, click to edit/add: Vital Signs - 24 hr 11/06/23 16:03 11/06/23 17:00 11/06/23 18:00 Temperature 98.1 F 98.2 F 98.7 F Pulse Rate [Pulse Oximeter] 79 93 92 Respiratory Rate 16 18 16 Blood Pressure [Le ft Arm] 132/56 L 101/52 L 121/55 L Pulse Oximetry 92 98 92 Oxygen Delivery Me thod Nasal Cannula Nasal Cannula Nasal Cannula Oxygen Flow Rate 1.5 2 1.5 11/06/23 19:00 11/06/23 23:00 11/07/23 03:00 Temperature 98.8 F 98.0 F Pulse Rate [Pulse Oximeter] 88 91 81 Respiratory Rate 16 16 12 Blood Pressure [Le ft Arm] 117/54 L 120/64 Pulse Oximetry 94 92 93 Oxygen Delivery Me thod Nasal Cannula Nasal Cannula Nasal Cannula Oxygen Flow Rate 1.5 2 2 11/07/23 07:00 11/07/23 07:00 11/07/23 10:56 Temperature 98.1 F 98.0 F Pulse Rate [Pulse Oximeter] 75 75 94 Respiratory Rate 20 20 18 Blood Pressure [Le ft Arm] 131/61 111/59 L Pulse Oximetry 98 92 Oxygen Delivery Me thod Nasal Cannula Nasal Cannula Oxygen Flow Rate 1 1.5 Documenting provider has reviewed patient's vital signs: yes Labs Labs: Laboratory Results - last 24 hr 11/07/23 05:52 WBC 7.34 RBC 3.16 L Hgb 9.1 L Hct 30.4 L MCV 96 MCH 29 MCHC 30 L Plt Count 177 Sodium 138 Potassium 4.6 BUN 18 Creatinine 0.8 Estimated Creat Clear 30.76 Estimated GFR 71
--- NOTE | 2023-11-07 16:36 | PC.SOCIAL ---
Discharge planning: Received call back from Elly stating that she can come to the hospital for face to face assessment of pt on Friday and if ready for discharge and if she can meet his needs, she could accept him back. However, she will not make a final decision on this until Friday. Faxed information to [facility] for evaluation for admit if [facility] is unable to take pt back at discharge. [facility] stated they would need to review updated information on Friday to make a decision as they would currently be unable to meet pt's needs. supervisor hand workers to follow up as needed.
--- NOTE | 2023-11-07 18:24 | PC.NURSE ---
shift note: pt up to recliner 2/walker pivot assist. pt incont void moderate amount x1. Pt refused VSS
[2023-11-08] VITALS (8 sets, daily range): BP systolic 98–138; BP diastolic 55–80; PULSE 96–106; RESP 18; TEMP 36.2–37.4; O2SAT 90–94
[2023-11-08] MEDS: ACETAMINOPHEN 325 MG TABLET 650 MG PO ×4 (01:30→20:18)
[2023-11-08] MEDS: LEVOTHYROXINE 50 MCG TABLET PO (06:17)
[2023-11-08 06:40] LABS: Hemoglobin* 8.7 gm/dL (12.0-16.0); Mean Corpuscular HGB Conc 31 gm/dL (32-36); Mean Corpuscular Hemoglobin 29 pg (26-34); Mean Corpuscular Volume 94 fL (80-100); Platelet Count* 152 K/uL (140-440); Red Blood Count 2.99 m/uL (4.00-5.20); White Blood Count* 6.49 K/uL (4.50-11.00)
--- NOTE | 2023-11-08 06:42 | PC.NURSE ---
End of shift note [id number]: Pt alert & oriented to self only. She has baseline dementia and has been noted to become irritable/suspicious in evening. Pt pleasant when first interacting with television writer last evening though after staff changed her brief in bed she started yelling at staff stating, ?I?m going to jefry you! I need to get out of here and into a [facility] house!? forder operator updated. Pt had to be changed in bed as staff attempted to assist her to commode though she started yelling, ?I can?t do it!? Pt noted to be incontinent of bladder. She refused HS Senna and Tylenol despite encouragement and reapproaching. Pt had taken pills in her mouth at one point though spit medication out and then refused to take. Pt also telling television writer, ?It?s laced? when encouraged to drink water. She was noted to be chanting about ?squatter?s rights? repeatedly when nurse was in room last evening. Dressings to R hip noted to be C/D/I with ice provided. Pt noted to have removed distal surgical incision though television writer noted no drainage or redness present and covered incision with new adhesive dressing. SCDs put on last evening though pt refused and started yelling, ?Get them off of my feet? despite education and encouragement to wear SCDs. Bed alarm utilized d/t hx of fall and baseline dementia. Pt?s mood noted to be much improved after she received IV Dilaudid. IV Dilaudid was given due to pain to R hip/leg being uncontrolled by rest, repositioning and ice and pt refusing scheduled Tylenol. Pt tolerated wearing SCDs after receiving IV Dilaudid. She did accept 0200 dose of Tylenol when approached. Staff have been assisting pt with repositioning in bed throughout the night and changing brief PRN. Sacral dressing noted to be C/D/I. CMS to RLE intact. Date of last BM unknown due to pt being a poor historian though bowel sounds active x 4 and pt refused Senna despite encouragement and reapproaching. PO fluids encouraged throughout the shift. Senior Technical Support Engineer left note for provider requesting Nystatin order to treat redness noted under L breast.
[2023-11-08 06:48] LABS: Slide Review Reflex No
[2023-11-08 07:22] LABS: Potassium* 4.2 mmol/L (3.6-5.1); Sodium* 137 mmol/L (135-149)
[2023-11-08 07:25] LABS: Creatinine* 0.7 mg/dL (0.5-1.5); Est. Creatinine Clearance* 30.76; Estimated Glomerular Filt Rate 83 ml/min
[2023-11-08 07:26] LABS: Blood Urea Nitrogen* 16 mg/dL (7-30)
[2023-11-08] MEDS: SERTRALINE 100 MG TABLET 150 MG PO (09:30)
[2023-11-08] MEDS: RIVAROXABAN 10 MG TABLET PO (09:30)
[2023-11-08] MEDS: SENNOSIDES 1 TAB TABLET 2 TAB PO ×2 (09:30→20:18)
--- NOTE | 2023-11-08 11:29 | P.ORPN_ITS ---
Subjective Subjective Time Seen by Provider: 08:30 Date Seen: 11/08/23 Principal diagnosis: s/p right hip ORIF with intramedullary nail Interval history: Amberly is sitting up in her bed this morning. She has been coughing. She is about to get up to a chair with nursing. She has been pivoting from bed to chair. Ortho Exam Narrative Exam Narrative: Alert and his dementia. Hearing loss. Patient is in no acute distress. Converses without labored breathing, coughing. Ambulates pivot transfer to chair. Examination of the right lower extremity shows she is able to plantar flex and dorsiflex the right ankle upon command. Pedal pulses are 2+. Capillary refill less than 2 seconds. Foot is warm. Very minimal swelling about the right hip and thigh. Dressings are in place intact. Able to slightly flex and extend the knee in the bed on command. Const Vital Signs, click to edit/add: Vital Signs - 24 hr 11/07/23 15:00 11/07/23 20:07 11/07/23 23:00 Temperature 99.2 F Pulse Rate [Pulse Oximeter] 94 104 H 96 Respiratory Rate 18 18 18 Blood Pressure [Left Arm] 95/68 Pulse Oximetry 90 Oxygen Delivery Method Room Air Oxygen Flow Rate 11/07/23 23:15 11/08/23 03:26 11/08/23 09:09 Temperature 99.5 F 97.2 F L Pulse Rate [Pulse Oximeter] 96 96 Respiratory Rate 18 18 18 Blood Pressure [Left Arm] 147/76 H 123/64 Pulse Oximetry 91 91 Oxygen Delivery Method Nasal Cannula Nasal Cannula Oxygen Flow Rate 1 1 11/08/23 09:09 11/08/23 10:53 Temperature 99.3 F 98.7 F Pulse Rate [Pulse Oximeter] 96 Respiratory Rate 18 18 Blood Pressure [Left Arm] 98/55 L 109/64 Pulse Oximetry 92 Oxygen Delivery Method Room Air Oxygen Flow Rate Documenting provider has reviewed patient's vital signs: yes Assessment and Plan Assessment and plan (1) Closed hip fracture: Problem details: status post right hip ORIF with intramedullary nail (DOS: 11/06/2023, Dr. Strauss) no operative complications are apparent Status: Acute Assessment and Plan: Plan for [facility] per oncology social worker note and when she meets discharge criteria, possibly Friday. DVT prophylaxis includes Xarelto 10 mg daily for total of 35 days, Christian stockings x1 month may remove for 1 hr per day, weight bear as tolerated Remove dressings 1 week. Observe wound and phone Orthopedics with any questions or concerns Use Ice on operative hip unrestricted. Return to clinic in 6 weeks with surgeon Minimize narcotic use. She is already on tramadol, plan to use this upon discharge, Wean off and discontinue soon as possible. OT and PT at long-term facility. Orthopedics does not plan to see patient tomorrow, Friday unless needed. Her nurse is notified of this. Patient is waiting on placement.
[2023-11-08 11:48] LABS: PCR FLU A Negative PCR FLU A (Negative); PCR FLU B Negative PCR FLU B (Negative); PCR RSV Negative PCR RSV (Negative); SARS PCR* Negative SARS-CoV-2 (Negative)
[2023-11-08] MEDS: OXYCODONE 5 MG TABLET 2.5 MG PO (13:33)
--- NOTE | 2023-11-08 16:02 | P.IMPN_ITS ---
Progress Note: A&P Assessment and plan (1) Closed hip fracture: Problem details: status post right hip ORIF with intramedullary nail (DOS: 11/06/2023, Dr. Strauss) no operative complications are apparent Status: Acute (2) Multiple falls: Problem details: Return to [facility] Care at [facility] or discharge to penitentiary facility depending on patient's recovery from this surgery Status: Acute (3) Hearing loss: Problem details: - chronic, uses hearing aids Status: Acute (4) Recurrent UTI: Problem details: UTI due to Klebsiella diagnosed on October 23. Klebsiella sensitive to cephalexin. Outpatient treatment with cephalexin. Perioperative antibiotics with Ancef. Unclear if this is symptomatic. Status: Acute (5) Thyroid nodule: Problem details: - CT scan of chest obtained on 11/06/2023 demonstrated the following findings: 2. Left thyroid nodule measuring 2.4 cm. This could be further evaluated with thyroid ultrasound as clinically indicated. Status: Acute (6) Adrenal nodule: Problem details: - CT scan of chest on 11/06/2023 demonstrated the following findings: 3. Indeterminate left adrenal nodule measuring 2.7 cm. While prior imaging is not available for comparison, prior CT report from 2018 notes a similar-sized left adrenal nodule. Status: Acute (7) Anemia: Problem details: Acute Anemia due to blood loss from hip fracture. Preop hemoglobin 12.4. Hemoglobin day 1 postop is 9.1. Trend Status: Acute (8) Dementia: Status: Acute (9) Pulmonary nodules: Problem details: - CT scan of chest obtained on 11/06/2023 demonstrated the following findings: 5. Small pulmonary nodules. If the patient is at increased risk for lung cancer, consider repeat chest CT in 12 months according to Fleischner Society recommendations. Status: Acute (10) Decubitus ulcer of sacral region, stage 1: Problem details: Wet to dry dressings. Shallow. Normal appearing granulation tissue. Mepilex. Frequent turning. Status: Acute Plan Continue in hospital for management of chronic medical problems and postoperative care from hip fracture. Monitor for postoperative complications. Discharge pending clinical course and functional status. Time Spent With Patient Total time spent: Total time spent today is 40 minutes, 30 minutes in coordination of care and discussing with patient, family and other providers management of postoperative care and chronic medical problems Subjective Date Seen: 11/08/23 Interval history: 88-year-old female seen in followup of right hip fracture status post ORIF yesterday. Procedure performed by Dr. Strauss. No operative complications. Patient had an unwitnessed fall at her [facility]. She primarily is in a wheelchair there but does self transfer. She recently was diagnosed with a UTI due to Klebsiella. Treated with cephalexin for this. Also received Ancef perioperatively for hip fracture prophylaxis. Unknown if this is symptomatic urinary infection. Patient has not had a fever. She remains confused and disoriented to her circumstances and unable to give meaningful history. Family noted asymmetry to the face which turned out to be a swollen left upper lip without other evidence of neurologic compromise. Patient is more alert and eating better today Exam Narrative: Exam Narrative: She is little more alert and talkative today. Still confused and disoriented. Respirations are clear to auscultation. Cardiovascular: S1, S2, regular rate and rhythm. Abdomen with active bowel sounds. Abdomen is soft without tenderness. She poorly tolerates any mom movement of her right hip. Hip appears to be without unusual swelling bruising or erythema. Family noted that there was some asymmetry to her face. I was called urgently to see her. She had obvious swelling of the lateral aspect of her left upper lip without other obvious signs of trauma or inflammation. Her smile was symmetric facial movements were equal extraocular movements are full. Visual anderson were intact. Equal strength in both upper extremities and lower extremities bilaterally. Oropharynx was otherwise unremarkable. No stridor or swelling of the tongue. Const: Vital Signs, click to edit/add: Vital Signs - 24 hr 11/07/23 20:07 11/07/23 23:00 11/07/23 23:15 Temperature 99.2 F 99.5 F Pulse Rate [Pulse Oximeter] 104 H 96 96 Respiratory Rate 18 18 18 Blood Pressure [Le ft Arm] 95/68 147/76 H Pulse Oximetry 90 91 Oxygen Delivery Me thod Room Air Nasal Cannula Oxygen Flow Rate 1 11/08/23 03:26 11/08/23 09:09 11/08/23 09:09 Temperature 97.2 F L 99.3 F Pulse Rate [Pulse Oximeter] 96 Respiratory Rate 18 18 18 Blood Pressure [Le ft Arm] 123/64 98/55 L Pulse Oximetry 91 Oxygen Delivery Me thod Nasal Cannula Oxygen Flow Rate 1 11/08/23 10:53 Temperature 98.7 F Pulse Rate [Pulse Oximeter] 96 Respiratory Rate 18 Blood Pressure [Le ft Arm] 109/64 Pulse Oximetry 92 Oxygen Delivery Me thod Room Air Oxygen Flow Rate Documenting provider has reviewed patient's vital signs: yes Labs Labs: Laboratory Results - last 24 hr 11/08/23 11/08/23 06:28 Unknown WBC 6.49 RBC 2.99 L Hgb 8.7 L Hct 28.0 L MCV 94 MCH 29 MCHC 31 L Plt Count 152 Diff Slide Review Cancelled Sodium 137 Potassium 4.2 BUN 16 Creatinine 0.7 Estimated Creat Clear 30.76 Estimated GFR 83 SARS-CoV-2 (PCR) Negative SARS-CoV-2 Influenza Type A (PCR) Negative PCR FLU A Influenza Type B (PCR) Negative PCR FLU B RSV (PCR) Negative PCR RSV
--- NOTE | 2023-11-08 18:46 | PC.NURSE ---
Nursing Care Hours: [id number] Pt this shift was agitated in morning, c/o pain to back and being in an uncomfortable bed. Rn Rehab would offer pain medication but pt would decline. Rn Rehab brought pain meds anyway and with some effective communication, pt willingly took them. After about 30min, pt relaxed and was cooperative with cares and pleasant. VSS. Heavy 2 assist with walker and gait belt pivot transfer to chair. Started using Ruth Ann Steady stand with 2 person transfers, tolerated well. New order for 2.5mg oxycodone started for pain with transfers, effective. Pt daughter noticed left side of mouth appeared swollen. Rn Rehab observed and appears that left upper lip inside of mouth was swollen. Hospitalist observed it, no concerns at this time. Incontinent x2, no BM. Bandages to R thigh CDI, CMS intact.
[2023-11-08] MEDS: MIRTAZAPINE 15 MG TABLET 7.5 MG PO (20:19)
[2023-11-08] MEDS: MELATONIN 3 MG TABLET PO (20:19)
--- NOTE | 2023-11-08 21:20 | P.CCN_ITS ---
Subjective Subjective Time Seen by Provider: 21:12 Date Seen: 11/08/23 Principal diagnosis: s/p right hip ORIF with intramedullary nail Interval history: Facial asymmetry and swollen left upper lip were noted by day team today. Patient's nurse informed me around 9pm that Amberly now had redness of the left lip and cheek in addition to swelling. I came to see Amberly. She was sleeping comfortably and did not awaken for my exam. Objective Objective Data Details: Vital signs from 7:47 p.m. include a blood pressure of 138/77, pulse 98, re spirations 18, temperature 98.9? F, O2 sat 94% on room air. General: No acute distress. Sleeping, stirred during my exam, but did not awaken. No pallor. No jaundice. Breathing comfortably without tachypnea or stridor. Face: Swelling and mild blanching erythema with mild calor noted in the lateral aspect of her left upper lip and cheek that extends down on the cheek to the jawline. No obvious trauma, abrasions, blisters, or open sores. Oropharynx: Poor dentition with multiple chronically chipped or broken teeth. No swelling appreciated on the inner cheek or tongue. Mucous membranes moist and without ulcer, erythema or plaque. Skin: I see no other rash or swelling. Assessment and Plan Assessment and plan (1) Lip swelling: Problem comment: - There is erythema and calor associated with this. I am not seeing evidence of trauma, but patient has a recent history of multiple falls 1 of which led to a closed hip fracture for which she is status post a right hip ORIF, date of surgery 11/06/2023. Anesthesia for that surgery was spinal. - DDx includes: angioedema without airway compromise or hives, erysipelas, cellulitis, contact dermatitis. I have ordered a CBC, CMP, CRP, procalcitonin, and TSH. I have reviewed her medications. She is not on an CHANTAL-inhibitor. New medications include oxycodone of which she has had 4 doses today, Xarelto of which she has had 2 doses (1 yesterday and 1 today), and mirtazapine of which she got her 1st dose 1 hour ago which was after the swelling started, but before the erythema started. - of these new medications that were recently started, I will hold oxycodone as opioids can cause a direct mast cell activation. I will start her on antibiotics, prednisone, and cetirizine. Check nasal swab for MRSA. Status: Acute
--- NOTE | 2023-11-08 21:32 | PC.NURSE ---
Upon evening assessment, medical technical writer noted the left side of pt's face to have redness present. Pt denied pain to area when asked. Lead Android Developer did look inside mouth and noted a patch of white/mullins colored flesh to left inner side of mouth. Lead Android Developer updated MD Agudelo of findings and also requested order for Nystatin to treat redness/yeast area under L breast as area is noted to have redness, moisture and yeasty odor noted upon inspection.
[2023-11-08 22:02] LABS: Basophils Absolute Auto 0.02 K/uL (0.00-0.30); Basophils Percent Auto 0.3 % (0.0-3.0); Eosinophils Absolute Auto 0.14 K/uL (0.00-0.50); Hematocrit 27.4 % (33.0-51.0); Hemoglobin* 8.4 gm/dL (12.0-16.0); Immature Granulocytes Abs Auto 0.01 K/uL (0.00-0.30); Immature Granulocytes Pct Auto 0.1 %; Lymphocytes Percent Auto 13.1 % (20-44); Mean Corpuscular HGB Conc 31 gm/dL (32-36); Mean Corpuscular Hemoglobin 29 pg (26-34); Mean Corpuscular Volume 93 fL (80-100); Monocytes Percent Auto 9.5 % (0.0-11.0); Platelet Count* 167 K/uL (140-440); RDW Coefficient of Variation % 13.9 % (11.5-15.5); Red Blood Count 2.94 m/uL (4.00-5.20); White Blood Count* 6.93 K/uL (4.50-11.00)
[2023-11-08 22:04] LABS: Slide Review Reflex No
--- NOTE | 2023-11-08 22:12 | PC.NURSE ---
MD Agudelo verbally informed parts data writer that she would like first dose of Keflex 500 mg po given this evening. [employer] called [facility] to request first dose be put in [employer] for removal this evening per .
[2023-11-08 22:16] LABS: Chloride* 105 mmol/L (96-114)
[2023-11-08 22:17] LABS: Albumin* 3.2 g/dL (3.3-5.0); Potassium* 4.2 mmol/L (3.6-5.1); Sodium* 135 mmol/L (135-149)
[2023-11-08 22:19] LABS: Creatinine* 0.7 mg/dL (0.5-1.5); Est. Creatinine Clearance* 30.76; Estimated Glomerular Filt Rate 83 ml/min
[2023-11-08 22:20] LABS: Alanine Aminotransferase* 11 U/L (4-35); Alkaline Phosphatase* 46 U/L (40-150); Anion Gap 2 mEq/L (7-15); Aspartate Amino Transferase* 28 U/L (12-35); Bilirubin Total* 0.3 mg/dL (0.1-1.5); Blood Urea Nitrogen* 18 mg/dL (7-30); Carbon Dioxide* 28 mmol/L (20-32); Total Protein* 5.9 g/dL (6.0-8.3)
[2023-11-08 22:21] LABS: Calcium* 8.5 mg/dL (8.4-10.6); Glucose* 153 mg/dL (60-115)
[2023-11-08 22:35] LABS: C Reactive Protein* 12.5 mg/dL (0.5-1.0)
[2023-11-08 22:37] LABS: Procalcitonin* 0.15 ng/mL (<0.50)
[2023-11-08] MEDS: CETIRIZINE HCL 10 MG TABLET PO (23:23)
[2023-11-08] MEDS: cephALEXin 500 MG CAPSULE PO (23:23)
[2023-11-08] MEDS: predniSONE 20 MG TABLET PO (23:23)
[2023-11-08] MEDS: bisacodyL 10 MG SUPP.RECT PR (23:29)
[2023-11-09] VITALS (7 sets, daily range): BP systolic 106–149; BP diastolic 46–87; PULSE 65–97; RESP 14–20; TEMP 36.6–37.4; O2SAT 90–95
--- NOTE | 2023-11-09 01:14 | PC.NURSE ---
Pt noted to be removing continuous pulse ox during sleep despite staff trying to switch fingers and encourage use of pulse ox.
[2023-11-09] MEDS: ACETAMINOPHEN 325 MG TABLET 650 MG PO ×4 (01:58→19:45)
[2023-11-09] MEDS: LEVOTHYROXINE 50 MCG TABLET PO (06:18)
[2023-11-09 06:39] LABS: Hematocrit 29.4 % (33.0-51.0); Hemoglobin* 9.2 gm/dL (12.0-16.0); Mean Corpuscular HGB Conc 31 gm/dL (32-36); Mean Corpuscular Hemoglobin 29 pg (26-34); Mean Corpuscular Volume 93 fL (80-100); Platelet Count* 178 K/uL (140-440); Red Blood Count 3.17 m/uL (4.00-5.20)
[2023-11-09 06:43] LABS: Slide Review Reflex No
[2023-11-09 06:49] LABS: Sodium* 137 mmol/L (135-149)
[2023-11-09 06:50] LABS: Potassium* 4.5 mmol/L (3.6-5.1)
[2023-11-09 06:52] LABS: Creatinine* 0.7 mg/dL (0.5-1.5); Est. Creatinine Clearance* 30.76; Estimated Glomerular Filt Rate 83 ml/min
[2023-11-09 06:53] LABS: Blood Urea Nitrogen* 17 mg/dL (7-30)
[2023-11-09] MEDS: OXYCODONE 5 MG TABLET 2.5 MG PO (07:30)
--- NOTE | 2023-11-09 07:36 | PC.NURSE ---
End of shift note [id number]: Pt?s mood noted to be much improved last evening compared to evening prior. She was started on scheduled Melatonin and Remeron last evening as well as Cephalexin, Cetirizine and Prednisone per orders given by MD Agudelo as left side of face noted to have swelling and redness present last evening. Swelling to left side of face had been noted earlier in the day by MD Reynaga and day RN.?Pt has been afebrile this shift. She is transferring with use of Ruth [employer]dy using assist of 2. Dressings to R hip noted to be C/D/I. Pt incontinent of bladder and bowel this shift after PRN Bisacodyl supp given due to no documented BM since at least 11/05/23. CMS to RLE intact. Moderate pain to R hip/leg noted with repositioning though managed with rest, ice, repositioning and scheduled Tylenol.
[2023-11-09] MEDS: SERTRALINE 100 MG TABLET 150 MG PO (08:49)
[2023-11-09] MEDS: SENNOSIDES 1 TAB TABLET 2 TAB PO ×2 (08:49→19:46)
[2023-11-09] MEDS: METOPROLOL SUCCINATE (XL) 25 MG TAB PO (08:49)
[2023-11-09] MEDS: RIVAROXABAN 10 MG TABLET PO (08:49)
[2023-11-09] MEDS: OMEPRAZOLE 20 MG CAPSULE DR PO (08:49)
--- NOTE | 2023-11-09 14:28 | PC.NURSE ---
Assumed care of this patient from Ashwini ROCK. Amberly has been extremely sleepy for the majority of shift. PT in to eval pt twice, first time too sleepy second time pt refused. VS wnl, pt alert to self and place, baseline dementia. Pt's family member present for assist with her lunch. Mild coughing noted after eating, HOB elevated, RN stayed with patient and provided sips of water from a cup which patient stated it helps. Teds removed and plexipulses applied. Dressing CDI. Report will be provided to oncoming shift RN.
--- NOTE | 2023-11-09 14:49 | P.IMPN_ITS ---
Progress Note: A&P Assessment and plan (1) Closed hip fracture: Problem details: status post right hip ORIF with intramedullary nail (DOS: 11/06/2023, Dr. Strauss) no operative complications are apparent Status: Acute (2) Anemia: Problem details: Acute Anemia due to blood loss from hip fracture. Preop hemoglobin 12.4. Hemoglobin day 1 postop is 9.1. Trend Status: Acute (3) Dementia: Status: Acute (4) Lip swelling: Problem details: - There is erythema and calor associated with this. I am not seeing evidence of trauma, but patient has a recent history of multiple falls 1 of which led to a closed hip fracture for which she is status post a right hip ORIF, date of surgery 11/06/2023. Anesthesia for that surgery was spinal. - DDx includes: angioedema without airway compromise or hives, erysipelas, cellulitis, contact dermatitis. I have ordered a CBC, CMP, CRP, procalcitonin, and TSH. I have reviewed her medications. She is not on an CHANTAL-inhibitor. New medications include oxycodone of which she has had 4 doses today, Xarelto of which she has had 2 doses (1 yesterday and 1 today), and mirtazapine of which she got her 1st dose 1 hour ago which was after the swelling started, but before the erythema started. - of these new medications that were recently started, I will hold oxycodone as opioids can cause a direct mast cell activation. I will start her on antibiotics, prednisone, and cetirizine. Check nasal swab for MRSA. Status: Acute (5) Multiple falls: Problem details: Return to Memory Care at [facility] or discharge to nursing home facility depending on patient's recovery from this surgery Status: Acute (6) Hearing loss: Problem details: - chronic, uses hearing aids Status: Acute (7) Recurrent UTI: Problem details: UTI due to Klebsiella diagnosed on October 23. Klebsiella sensitive to cephalexin. Outpatient treatment with cephalexin. Perioperative antibiotics with Ancef. Unclear if this is symptomatic. Status: Acute (8) Thyroid nodule: Problem details: - CT scan of chest obtained on 11/06/2023 demonstrated the following findings: 2. Left thyroid nodule measuring 2.4 cm. This could be further evaluated with thyroid ultrasound as clinically indicated. Status: Acute (9) Adrenal nodule: Problem details: - CT scan of chest on 11/06/2023 demonstrated the following findings: 3. Indeterminate left adrenal nodule measuring 2.7 cm. While prior imaging is not available for comparison, prior CT report from 2018 notes a similar-sized left adrenal nodule. Status: Acute (10) Decubitus ulcer of sacral region, stage 1: Problem details: Wet to dry dressings. Shallow. Normal appearing granulation tissue. Mepilex. Frequent turning. Status: Acute Plan Continue in-hospital for recovery from hip fracture surgery pending safe discharge plan. Time Spent With Patient Total time spent: Total time spent today is 35 minutes, 20 minutes in coordination of care and discussing with patient and other providers ongoing evaluation management of postoperative care and lip swelling Subjective Date Seen: 11/09/23 Interval history: 88-year-old female seen in followup of right hip fracture status post ORIF yesterday. Procedure performed by Dr. Strauss. No operative complications. Patient had an unwitnessed fall at her [facility]. She primarily is in a wheelchair there but does self transfer. She recently was diagnosed with a UTI due to Klebsiella. Treated with cephalexin for this. Also received Ancef perioperatively for hip fracture prophylaxis. Unknown if this is symptomatic urinary infection. Patient has not had a fever. She remains confused and disoriented to her circumstances and unable to give meaningful history. She continued to have some swelling of the left lip and by secondhand report cheek. Lose concern about hives or angioedema. This is resolved overnight with only minimal swelling of the left lip. Exam Narrative: Exam Narrative: She is confused and not oriented to her circumstances. No facial asymmetry. Minimal swelling of the left upper lip no stridor or swelling of the tongue or erythema of the cheek. Respirations are clear to auscultation. Cardiovascular: S1, S2, regular rate and rhythm. Abdomen is soft without tenderness. Extremities without edema. Intact pulses. Intact motion and feet and ankles Const: Vital Signs, click to edit/add: Vital Signs - 24 hr 11/08/23 15:00 11/08/23 15:00 11/08/23 19:47 Temperature 98.7 F 98.9 F Pulse Rate [Pulse Oximeter] 100 100 98 Respiratory Rate 18 18 18 Blood Pressure [Le ft Arm] 105/80 138/77 Blood Pressure [Ri ght Arm] Pulse Oximetry 94 94 Oxygen Delivery Me thod Room Air Room Air 11/08/23 23:30 11/08/23 23:35 11/08/23 23:36 Temperature 98.6 F Pulse Rate [Pulse Oximeter] 106 H 106 H Respiratory Rate 18 18 Blood Pressure [Le ft Arm] 129/68 Blood Pressure [Ri ght Arm] Pulse Oximetry 90 90 Oxygen Delivery Me thod Room Air 11/09/23 03:06 11/09/23 08:07 11/09/23 08:07 Temperature 98.5 F Pulse Rate [Pulse Oximeter] 97 95 Respiratory Rate 18 18 Blood Pressure [Le ft Arm] 130/87 Blood Pressure [Ri ght Arm] Pulse Oximetry 90 95 Oxygen Delivery Me thod Room Air 11/09/23 08:07 11/09/23 11:00 Temperature 99.3 F 97.8 F Pulse Rate [Pulse Oximeter] 65 86 Respiratory Rate 18 20 Blood Pressure [Le ft Arm] 126/76 Blood Pressure [Ri ght Arm] 149/81 H Pulse Oximetry 95 93 Oxygen Delivery Me thod Room Air Room Air Documenting provider has reviewed patient's vital signs: yes Labs Labs: Laboratory Results - last 24 hr 11/08/23 11/09/23 21:56 05:36 WBC 6.93 6.40 RBC 2.94 L 3.17 L Hgb 8.4 L 9.2 L Hct 27.4 L 29.4 L MCV 93 93 MCH 29 29 MCHC 31 L 31 L RDW Coeff of [place] 13.9 Plt Count 167 178 Neut % (Auto) 75.0 H Lymph % (Auto) 13.1 L [place] % (Auto) 9.5 Eos % (Auto) 2.0 Baso % (Auto) 0.3 Neut # (Auto) 5.20 Lymph # (Auto) 0.90 [place] # (Auto) 0.70 Eos # (Auto) 0.14 Baso # (Auto) 0.02 Abs Immat Gran (auto) 0.01 Imm/Tot Granulo (auto) 0.1 Sodium 135 137 Potassium 4.2 4.5 Chloride 105 Carbon Dioxide 28 Anion Gap 2 L BUN 18 17 Creatinine 0.7 0.7 Estimated Creat Clear 30.76 30.76 Estimated GFR 83 83 Glucose 153 H Calcium 8.5 Total Bilirubin 0.3 AST 28 ALT 11 Alkaline Phosphatase 46 C-Reactive Protein 12.5 H Total Protein 5.9 L Albumin 3.2 L Procalcitonin 0.15 TSH 2.020
--- NOTE | 2023-11-09 18:50 | PC.NURSE ---
Nursing Care Hours: [id number] Pt calm and cooperative with morning cares. Ruth Ann steady stand used to transfer to recliner. Pain meds given. Pt fatigued this morning, falling asleep in chair and unable to eat breakfast. C/o pain to left hip, ice pack provided. Assisted back to bed around 1000. Pt snoring in bed. Incontinent brief changed x2. VSS. No cough.
[2023-11-09] MEDS: MELATONIN 3 MG TABLET PO (19:46)
[2023-11-09] MEDS: MIRTAZAPINE 15 MG TABLET 7.5 MG PO (19:46)
--- NOTE | 2023-11-09 22:26 | PC.NURSE ---
Shift [id number]- Patient denies pain. [place]. She is up with assistive device and staff assist to chair this evening for meal. She is back to bed with repositioning and pillows for offloading. Dressings are clean, dry and intact.
[2023-11-10] VITALS (9 sets, daily range): BP systolic 99–129; BP diastolic 63–87; PULSE 81–114; RESP 16–18; TEMP 36.3–37.2; O2SAT 90–91
[2023-11-10] MEDS: ACETAMINOPHEN 325 MG TABLET 650 MG PO ×4 (02:42→20:41)
[2023-11-10] MEDS: LEVOTHYROXINE 50 MCG TABLET PO (06:27)
--- NOTE | 2023-11-10 06:33 | PC.NURSE ---
End of shift report [id number]: Pain to right hip reported with repositioning, pain managed with tylenol and positioning. Alert, oriented to person and date of . Incontinent of bladder x 2, patient requested to use the bathroom and pivot transfer onto commode. Dressings to right hip CDI. Patient awake at 0230, has been on her call light several times between [id number] but did not request help, she was just hitting button.
[2023-11-10] MEDS: SENNOSIDES 1 TAB TABLET 2 TAB PO ×2 (08:10→20:40)
[2023-11-10] MEDS: OMEPRAZOLE 20 MG CAPSULE DR PO (08:10)
[2023-11-10] MEDS: RIVAROXABAN 10 MG TABLET PO (08:10)
[2023-11-10] MEDS: METOPROLOL SUCCINATE (XL) 25 MG TAB PO (08:11)
[2023-11-10] MEDS: SERTRALINE 100 MG TABLET 150 MG PO (08:11)
--- NOTE | 2023-11-10 10:52 | CRLHL7_ITS ---
For Patients: As a result of the Century Cures Act, medical imaging exams and procedure reports are released immediately into your electronic medical record. You may view this report before your referring provider. If you have questions, please contact your health care provider. Indication: Elbow pain Technique: Right elbow 3 views Comparison: None Findings: Heterotopic densities associated with the distal triceps tendon. Radial head intact. Chronic densities associated with the medial lateral humeral epicondyles. No fracture. 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 Dictated by Nakul Chambers MD @ 11/10/2023 11:45:58 AM (Electronically Signed)
--- NOTE | 2023-11-10 13:10 | PM.IMPN1 ---
Progress Note: A&P Assessment and plan (1) Closed hip fracture: Problem details: status post right hip ORIF with intramedullary nail (DOS: 11/06/2023, Dr. Strauss) no operative complications are apparent Status: Acute (2) Fall: Problem details: High risk for recurrent falls Status: Acute (3) Mass in chest: Problem details: - CT scan of chest with contrast obtained on 11/06/2023 demonstrated the followin. No mediastinal mass. 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 Status: Acute (4) Recurrent UTI: Problem details: UTI due to Klebsiella diagnosed on October 23. Klebsiella sensitive to cephalexin. Outpatient treatment with cephalexin. Perioperative antibiotics with Ancef. Unclear if this is symptomatic. No current antibiotics unless she develops symptoms or fever Status: Acute (5) Hearing loss: Problem details: - chronic, uses hearing aids Status: Acute (6) Cognitive impairment: Problem details: - no evidence of agitation - lives in [facility], [place], [place] Plan intermediate facility for rehab. Status: Acute (7) Elbow pain, chronic: Problem details: Conservative management. Use elbow as tolerated Status: Acute Plan Continue in hospital for postoperative care and management of chronic medical problems pending intermediate facility availability for rehab Time Spent With Patient Total time spent: Total time spent today is 40 minutes, 30 minutes in coordination of care discussing with other providers ongoing management of postoperative care, elbow pain Subjective Date Seen: 11/10/23 Interval history: 88-year-old female seen in followup of right hip fracture status post ORIF yesterday. Procedure performed by Dr. Strauss. No operative complications. Patient had an unwitnessed fall at her [facility]. She primarily is in a wheelchair there but does self transfer. She recently was diagnosed with a UTI due to Klebsiella. Treated with cephalexin for this. Also received Ancef perioperatively for hip fracture prophylaxis. Unknown if this is symptomatic urinary infection. Patient has not had a fever. She remains confused and disoriented to her circumstances and unable to give meaningful history. She continued to have some swelling of the left lip and by secondhand report cheek. Lose concern about hives or angioedema. This is resolved overnight with only minimal swelling of the left lip. Therapy reports she has had ongoing complaints of right elbow pain. Examination shows relatively normal motion. Palpation shows relatively diffuse tenderness without erythema or external signs of trauma including bruising or skin breakdown. No obvious joint effusion on palpation. Radiographs of the elbow show mild chronic degenerative changes. Exam Narrative: Exam Narrative: She is alert and appears in no distress. Respirations are clear to auscultation. Examination of her elbow described above with mild diffuse tenderness and relatively normal motion. Cardiovascular: S1, S2, regular rate and rhythm. Abdomen is soft without tenderness. Const: Vital Signs, click to edit/add: Vital Signs - 24 hr 11/09/23 15:30 11/09/23 15:30 11/09/23 19:03 Temperature 98.2 F 99.3 F Pulse Rate [Pulse Oximeter] 90 95 Respiratory Rate 18 16 Blood Pressure [Le ft Arm] Blood Pressure [Ri ght Arm] 134/70 106/46 L Pulse Oximetry 90 90 92 Oxygen Delivery Me thod Room Air Room Air 11/09/23 23:00 11/09/23 23:30 11/10/23 03:00 Temperature 97.4 F L Pulse Rate [Pulse Oximeter] 81 Respiratory Rate 16 14 16 Blood Pressure [Le ft Arm] Blood Pressure [Ri ght Arm] 129/69 Pulse Oximetry 91 Oxygen Delivery Me thod Room Air 11/10/23 05:49 11/10/23 07:52 11/10/23 07:52 Temperature 98.6 F Pulse Rate [Pulse Oximeter] 96 Respiratory Rate 16 18 Blood Pressure [Le ft Arm] 99/63 Blood Pressure [Ri ght Arm] Pulse Oximetry 90 90 Oxygen Delivery Me thod Room Air 11/10/23 11:40 Temperature 98.4 F Pulse Rate [Pulse Oximeter] 114 H Respiratory Rate 16 Blood Pressure [Le ft Arm] 112/83 Blood Pressure [Ri ght Arm] Pulse Oximetry 90 Oxygen Delivery Me thod Room Air Documenting provider has reviewed patient's vital signs: yes
--- NOTE | 2023-11-10 14:41 | PC.SOCIAL ---
Addendum entered by DELLA Cervantes 11/10/23 14:51: E-mail to Elly Salgado at [facility] to provide update on discharge plans. Original Note: Discharge planning- E-mail to Elly Salgado at [facility] and she is unable to come over today to assess pt. Elly informs that pt needs to be a 1 assist with transfers to return to [facility]. Secure e-mailed updated notes to Elly at [facility]. Per therapy, pt will need SNF for rehab. Per therapy notes pt is requiring 2-3 assist with transfers. Phone call to Africa Dixon at [facility] to discuss pt. Africa requests updated therapy and MD progress notes. Secured e-mailed updated notes to Africa at [facility]. Received a phone call back from Africa informing that nursing has completed a nurse to nurse and has accepted pt for admission for tomorrow. [facility] is offering a shared room. Phone call to pt's daughter, Alison Pryor, to provide update. Alison is aware that pt is requiring 2 to assist and at times more. Alison informs that she would like pt to go to [facility] with the plan to return to [facility] after short-term rehab stay. Informed Alison that she would work with [facility] Social workers and Elly at [facility] to do discharge planning upon completion of short-term rehab stay. This worker will check with nursing to see if pt qualifies for non-emergency ambulance and will call pt's daughter back regarding transportation. Provided update to charge nurse. Charge nurse will call back with update on transportation. Social work will continue to follow up as needed.
--- NOTE | 2023-11-10 18:00 | PC.NURSE ---
Pt alert to self. Pt stated in AM that her ?foot? hurt; Pt given scheduled medications and resolved pain. Pt pivot transfer with assist of two and gait belt. Pt up to chair during shift. Pt?s dressing dry and intact. Pt had family at bedside.? ?
[2023-11-10] MEDS: MIRTAZAPINE 15 MG TABLET 7.5 MG PO (20:41)
[2023-11-10] MEDS: MELATONIN 3 MG TABLET PO (20:41)
[2023-11-11 03:00] VITALS: RESP 18; O2SAT 90
--- NOTE | 2023-11-11 04:51 | PC.NURSE ---
Shift note: Pt continue to be confuse, yelling frequently for help but unable to specify when she needs. Scheduled Tylenol was attempted but was refused. Oriented to self and immediate environment but quickly forget. Pt had one large soft stool. Pelvic transfer with A2. Vitally stable.
[2023-11-11 05:17] VITALS: RESP 18
[2023-11-11] MEDS: LEVOTHYROXINE 50 MCG TABLET PO (06:28)
[2023-11-11 07:45] VITALS: BP 138/71; PULSE 88; RESP 16; TEMP 36.9; O2SAT 93
[2023-11-11] MEDS: ACETAMINOPHEN 325 MG TABLET 650 MG PO (07:45)
[2023-11-11] MEDS: SERTRALINE 100 MG TABLET 150 MG PO (09:07)
[2023-11-11] MEDS: OMEPRAZOLE 20 MG CAPSULE DR PO (09:07)
[2023-11-11] MEDS: METOPROLOL SUCCINATE (XL) 25 MG TAB PO (09:07)
[2023-11-11] MEDS: RIVAROXABAN 10 MG TABLET PO (09:08)
[2023-11-11] MEDS: OXYCODONE 5 MG TABLET 2.5 MG PO (10:10)
[2023-11-11 12:33] VITALS: BP 138/71; PULSE 88; RESP 16; TEMP 36.9
--- NOTE | 2023-11-11 13:48 | PM.DS1 ---
DS: Providers Provider Date Seen: 11/11/23 Date of admission: 11/05/23 20:06 Primary care physician: Timbo Pierce MD Admitting Clinician: Marie Castro MD Attending Physician on discharge: Jareth Reynaga MD Date of Discharge: 11/11/23 DS: Diagnosis Discharge Diagnosis (1) Closed hip fracture: Status: Acute Problem details: status post right hip ORIF with intramedullary nail (DOS: 11/06/2023, Dr. Strauss) no operative complications are apparent (2) Fall: Status: Acute Problem details: High risk for recurrent falls (3) Recurrent UTI: Status: Acute Problem details: UTI due to Klebsiella diagnosed on October 23. Klebsiella sensitive to cephalexin. Outpatient treatment with cephalexin. Perioperative antibiotics with Ancef. Unclear if this is symptomatic. No current antibiotics unless she develops symptoms or fever (4) Hearing loss: Status: Acute Problem details: - chronic, uses hearing aids (5) Cognitive impairment: Status: Acute Problem details: - no evidence of agitation - lives in [facility] for [facility]. (6) Elbow pain, chronic: Status: Acute Problem details: Conservative management. Use elbow as tolerated (7) Adrenal nodule: Status: Acute Problem details: - CT scan of chest on 11/06/2023 demonstrated the following findings: 3. Indeterminate left adrenal nodule measuring 2.7 cm. While prior imaging is not available for comparison, prior CT report from 2018 notes a similar-sized left adrenal nodule. (8) Mass in chest: Status: Acute Problem details: - CT scan of chest with contrast obtained on 11/06/2023 demonstrated the followin. No mediastinal mass. 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 (9) Thyroid nodule: Status: Acute Problem details: - CT scan of chest obtained on 11/06/2023 demonstrated the following findings: 2. Left thyroid nodule measuring 2.4 cm. This could be further evaluated with thyroid ultrasound as clinically indicated. DS: Summary Hospital Course Hospital Course: Amberly Darnell is a 88 year old female who presented to the ED after an unwitnessed fall from wheelchair. Lives at [facility], primarily is in her wheelchair except for self-transfers. Found on the floor today with a deformed RLE and complaints of pain. She was found to have a right hip 2 part intertrochanteric fracture. She was taken to the OR by Dr. Strauss where she had ORIF. This was done without operative complications. Postoperatively she has been having a slow recovery but otherwise no notable complications. Status at Discharge Functional status at discharge: uses cane/walker Time Spent with Patient Time attestation: Total time spent providing and/or coordinating discharge services: 40 minutes Time spent: Greater than 30 minutes Exam Narrative: Exam Narrative: She is alert and pleasant. She is sitting up in a chair. More interactive today. Respirations are clear to auscultation. Cardiovascular: S1, S2, regular rate and rhythm. Abdomen: Bowel sounds active. Abdomen is soft without tenderness or mass. Hip incision is clean and dry without bruising or significant drainage. No erythema. She moves her foot and ankle bilaterally normal. No significant edema. Const: Vital Signs, click to edit/add: Vital Signs - 24 hr 11/10/23 14:52 11/10/23 14:54 11/10/23 19:00 Temperature 98.9 F 97.9 F Pulse Rate [Pulse Oximeter] 86 87 Respiratory Rate 16 16 Blood Pressure [Ri ght Arm] 120/74 129/87 Pulse Oximetry 90 90 90 Oxygen Delivery Me thod Room Air Room Air Oxygen Flow Rate 0 11/10/23 23:00 11/10/23 23:00 11/10/23 23:00 Temperature 97.7 F Pulse Rate [Pulse Oximeter] 92 92 Respiratory Rate 16 Blood Pressure [Ri ght Arm] 115/72 Pulse Oximetry 91 91 Oxygen Delivery Me thod Room Air Oxygen Flow Rate 11/10/23 23:30 11/11/23 03:00 11/11/23 05:17 Temperature Pulse Rate [Pulse Oximeter] Respiratory Rate 18 18 18 Blood Pressure [Ri ght Arm] Pulse Oximetry 90 Oxygen Delivery Me thod Room Air Oxygen Flow Rate Documenting provider has reviewed patient's vital signs: yes Discharge Plan Discharge Disposition: [facility] Date of Admission: 11/05/23 20:06 Attending Provider on Discharge: Jake Reynaga Primary Care Provider: Timbo Pierce Condition: Stable Discharge Medications: New Xarelto 10 mg Tablet 10 mg PO DAILY Qty: 34 0RF sennosides [Senna Lax] 8.6 mg Tablet 2 mg PO DAILY Qty: 60 0RF melatonin 3 mg Tablet 3 mg PO HS Qty: 30 0RF Continued nystatin 100,000 unit/gram Cream 1 applic topical BID Qty: 30 1RF Rx Instructions: Wash and rinse groin region, then pat dry with towel, then apply thin layer of cream - repeat twice daily for min of 2 weeks cetirizine [24Hour Allergy] 10 mg tablet 10 mg PO DAILY guaifenesin [Adult Wal-Tussin] 100 mg/5 mL liquid 100 mg PO Q4H PRN loperamide [Anti-Diarrheal (loperamide)] 2 mg tablet 2 mg PO TID PRN melatonin 5 mg tablet 5 mg PO HS metformin 500 mg tablet 500 mg PO DAILY mirtazapine 15 mg tablet 15 mg PO HS levothyroxine 50 mcg tablet 50 mcg PO DAILY metoprolol succinate 25 mg tablet extended release 24 hr 25 mg PO DAILY omeprazole 20 mg capsule,delayed release(DR/EC) 20 mg PO DAILY risedronate 35 mg tablet 35 mg PO .WED@06 tiotropium bromide [Spiriva with HandiHaler] 18 mcg capsule, w/inhalation device 1 cap INHALATION DAILY sertraline 100 mg tablet 150 mg PO DAILY Changed acetaminophen 500 mg tablet 1,000 mg PO TID Qty: 120 0RF Discontinued tramadol 50 mg tablet 50 mg PO Q8H PRN Discharge Orders: Discharge Order (Routine); Ordered 11/11/23 Ordered By: Jake Reynaga Activity Level: Activity as Tolerated, Up with assist and Use Walker Activity Detail: Keep dressings on for 1 week. Replace as needed. Dressings are waterproof. May shower. No baths until wound is completely healed. Surgical glue covers the wounds. Attend OT and PT at [facility] facility. Ice and elevate operative extremity without restriction. Swelling and bruising will worsen within the first week. When swelling occurs, elevate the extremity above heart level several times a day and gently massage/pull soft tissue swelling toward hip. This allows gravity to assist in eliminating the swelling/edema. Wear compression stockings for 1 month post surgery to assist in preventing blood clots and to minimize swelling. May remove for 1 hour per day. Do not drink alcohol while taking narcotic pain medication. Notify Orthopedics with any questions or concerns. ([phone]) Discharge Diet: Regular Follow Up Appointments: Timbo Pierce MD [Primary Care Provider] - Forms: MyHealth Info Instructions Discharge Comments: follow up appt: Please make appt with Dr Strauss in 6 weeks at [facility] [phone] Admit to: SNF Discharge Potential: Fair Can use facility standing orders?: Yes Code Status: DNR/DNI TEDs: Bilateral Knee Rehab Potential: Fair Therapy: Physical Therapy and Occupational Therapy Therapy Orders: Evaluate and Treat Oxygen: No
--- NOTE | 2023-11-11 14:52 | PC.NURSE ---
Discharged via stretcher per ambulance personnel to [facility] for rehab and strengthening s/p RTHA anterior approach @ 1233 with personnel belongings after eval by OT, PT, primary RN and Dr. Reynaga. Dtr Alison supportive at bedside.
== END 2023-11-11 12:33 | DRG 481 ==
LOC: ED 17:55 → MEDSURG 18:40
PROVIDERS: Family Medicine; Orthopaedic Surgery; Admitting Provider Family Medicine; Emergency Provider Family Medicine; PCP Family Medicine; Visit Provider Family Medicine
PROC: 0QS606Z Reposition Right Upper Femur with Intramedullary Internal Fixation Device, Open Approach (ICD-10-PCS; CPT 27245; principal; 2023-11-06 10:15)
DX: S72.141A Displaced intertrochanteric fracture of right femur, initial encounter for closed fracture (principal); D62 Acute posthemorrhagic anemia; N39.0 Urinary tract infection, site not specified; G89.18 Other acute postprocedural pain; F01.50 Vascular dementia, unspecified severity, without behavioral disturbance, psychotic disturbance, mood disturbance, and anxiety; L53.9 Erythematous condition, unspecified; R60.0 Localized edema; J44.9 Chronic obstructive pulmonary disease, unspecified; L89.151 Pressure ulcer of sacral region, stage 1; I10 Essential (primary) hypertension; K21.9 Gastro-esophageal reflux disease without esophagitis; G62.9 Polyneuropathy, unspecified; E04.1 Nontoxic single thyroid nodule; R91.8 Other nonspecific abnormal finding of lung field; Z91.81 History of falling; G89.29 Other chronic pain; M25.521 Pain in right elbow; Z97.4 Presence of external hearing-aid; D35.02 Benign neoplasm of left adrenal gland; H90.3 Sensorineural hearing loss, bilateral; Z87.440 Personal history of urinary (tract) infections; E03.9 Hypothyroidism, unspecified; M80.88XD Other osteoporosis with current pathological fracture, vertebra(e), subsequent encounter for fracture with routine healing; W05.0XXA Fall from non-moving wheelchair, initial encounter; Y92.099 Unspecified place in other non-institutional residence as the place of occurrence of the external cause
CPT/HCPCS: 01210; 01230; 36415; 64488; 71045; 71260; 73080; 73502; 73551; 76942; 80048; 80053; 82565; 84132; 84145; 84295; 84443; 84484; 84520; 85025; 85027; 86140; 87081; 87631; 93005; 94761; 97110; 97161; 97165; 97530; 97535; 99100; 99284; 99285; A9270; C1713; J0690; J1100; J1170; J2250; J2270; J2371; J2405; J2704; J2795; J3010; J3490; J7030; J7120; J7512; Q9967

== ENCOUNTER 2023-11-11 12:39 | Outpatient (CLI) | payer MEDICARE, OTHER, SELFPAY ==
--- NOTE | 2023-11-13 14:02 | PC.SOCIAL ---
Completed preadmission screening today due to [facility] website error, was unable to complete when pt discharged on 11/11/23 to [facility]. Document will be back dated to 11/11/23. Confirmation #[id number].
== END 2023-11-11 12:40 | disposition home or self-care (01) ==
LOC: AMB 11-13 05:29
PROVIDERS: PCP Family Medicine; Visit Provider Family Medicine
DX: F03.90 Unspecified dementia, unspecified severity, without behavioral disturbance, psychotic disturbance, mood disturbance, and anxiety (principal); R41.82 Altered mental status, unspecified
CPT/HCPCS: A0425; A0428

== ENCOUNTER 2024-02-10 09:44 | Outpatient (CLI) | payer MEDICARE, OTHER, SELFPAY | END 2024-02-10 09:45 | disposition home or self-care (01) | LOC: AMB 02-16 18:46 | PROVIDERS: PCP Family Medicine; Visit Provider Family Medicine | DX: S09.90XA Unspecified injury of head, initial encounter (principal); S19.9XXA Unspecified injury of neck, initial encounter; W19.XXXA Unspecified fall, initial encounter; Y92.122 Bedroom in nursing home as the place of occurrence of the external cause | CPT/HCPCS: A0425; A0429 ==

== ENCOUNTER 2024-02-10 10:02 | Emergency (ER) | payer MEDICARE, OTHER, SELFPAY ==
[2024-02-10] VITALS (7 sets, daily range): BP systolic 149; BP diastolic 87; PULSE 64–76; RESP 16; TEMP 36.9; O2SAT 94–96; BMI 21.2
--- NOTE | 2024-02-10 10:05 | ED_ITS ---
HPI - General Adult General Time Seen by Provider: 10:05 Date Seen: 02/10/24 Chief complaint: Fall/Minor Trauma Stated complaint: Fall Time Seen by Provider: 02/10/24 10:05 Source: patient, EMS and RN notes reviewed Mode of arrival: EMS Limitations: no limitations ( she is conversive but is known to have underlying Alzheimer's dementia) History of Present Illness HPI narrative: This 88-year-old female was brought in by [facility] as a red trauma team activation due to mechanism. [facility] She was found down at about 5:40 a.m. this morning. She did have subsequent vomiting I believe they stated around 730. She complained of the back of her head pain. This was to EMS. EMS was unable to get a blood sugar as the blood clotted twice. Patient had a hip fracture in October on her right side, had surgical fixation. Just started ambulating with a walker. She tells me she fell about 630 this morning but it was reported that staff found her at about 5:40 a.m.. They initially helped her up and helped her into a wheelchair. She does not remember the details of the fall or circumstances around it. Staff feels maybe she got up on her own as she has been starting to ambulate with a walker again. There was no known symptoms of illness precipitating this. Patient tells me she does have some low back pain now. When asked about chest pain, she states she will have a flutter of that periodically but that is not new for her. She denies chest pain now, no shortness of breath, no difficulty breathing. No pain in her arms or legs. No abdominal pain. She actually states she wants a good breakfast now. Current medications: Acetaminophen, Aspercreme, Zyrtec, guaifenesin, levothyroxine, loperamide p.r.n., melatonin, metformin, metoprolol, mirtazapine, nystatin, omeprazole, risedronate, senna, sertraline, Spiriva, tramadol. Note Xarelto listed in our current med rec likely associated with her hospitalization for the hip fracture. Do not see it on her current med rec from her facility. Past medical history significant for else I murmurs dementia, type 2 diabetes, generalized anxiety disorder, supraventricular tachycardia, polyneuropathy, overactive bladder, history of medication noncompliance, COPD, hypertension, GERD with history of esophagitis, hypothyroidism, insomnia, osteoporosis, spinal stenosis. Advanced directives: DNR DNI Related Data Home Medications Medication Instructions Recorded Confirmed levothyroxine 50 mcg tablet 50 mcg PO DAILY 05/08/22 02/10/24 metoprolol succinate 25 mg 12.5 mg PO DAILY 05/08/22 02/10/24 tablet,extended release 24 hr omeprazole 20 mg capsule,delayed 20 mg PO DAILY 05/08/22 02/10/24 release risedronate 35 mg tablet 35 mg PO .WED@06 05/08/22 02/10/24 tiotropium bromide 18 mcg capsule 1 cap inhalation DAILY 05/08/22 02/10/24 with inhalation device (Spiriva with HandiHaler) sertraline 100 mg tablet 150 mg PO DAILY 07/02/22 02/10/24 cetirizine 10 mg tablet (24Hour 10 mg PO DAILY 11/05/23 02/10/24 Allergy) guaifenesin 100 mg/5 mL oral 100 mg PO Q4H PRN 11/05/23 02/10/24 liquid (Adult Wal-Tussin) loperamide 2 mg tablet 2 mg PO TID PRN 11/05/23 02/10/24 (Anti-Diarrheal (loperamide)) melatonin 5 mg tablet 5 mg PO HS 11/05/23 02/10/24 metformin 500 mg tablet 500 mg PO DAILY 11/05/23 02/10/24 mirtazapine 15 mg tablet 15 mg PO HS 11/05/23 02/10/24 melatonin 3 mg tablet 5 mg PO HS 02/10/24 02/10/24 nystatin 100,000 unit/gram topical 1 applic topical BID PRN 02/10/24 02/10/24 cream sennosides 8.6 mg tablet (Senna 2 mg PO HS 02/10/24 02/10/24 Lax) tramadol 50 mg tablet 50 mg PO 3XD PRN 02/10/24 02/10/24 Previous Rx's Medication Instructions Recorded rivaroxaban 10 mg tablet (Xarelto) 10 mg PO DAILY #34 tabs 11/07/23 acetaminophen 500 mg tablet 1,000 mg (2 x 500 mg) PO TID #120 11/11/23 tabs Allergies Allergy/AdvReac Type Severity Reaction Status Date / Time codeine Allergy Intermediate Hives Verified 02/10/24 10:23 lisinopril Allergy Intermediate Cough Verified 02/10/24 10:23 alendronate sodium AdvReac Intermediate Nausea Verified 02/10/24 10:23 Review of Systems 2 Status of ROS: Reports: 6 or more systems reviewed and unremarkable except as noted in History and below [facility] Medical History Pulmonary nodules ?R91.8 - Other nonspecific abnormal finding of lung field (ICD-10) Adrenal nodule ?E27.8 - Other specified disorders of adrenal gland (ICD-10) Recurrent UTI ?N39.0 - Urinary tract infection, site not specified (ICD-10) Fall ?W19.XXXA - Unspecified fall, initial encounter (ICD-10) Closed hip fracture ?S72.009A - Fracture of unspecified part of neck of unspecified femur, initial encounter for closed fracture (ICD-10) Elbow pain, chronic ?M25.529 - Pain in unspecified elbow (ICD-10) ?G89.29 - Other chronic pain (ICD-10) Dementia ?F03.90 - Unspecified dementia, unspecified severity, without behavioral disturbance, psychotic disturbance, mood disturbance, and anxiety (ICD-10) Hearing loss ?H91.90 - Unspecified hearing loss, unspecified ear (ICD-10) Adenoma of left adrenal gland ?D35.02 - Benign neoplasm of left adrenal gland (ICD-10) Insomnia ?G47.00 - Insomnia, unspecified (ICD-10) Osteoporosis ?M81.0 - Age-related osteoporosis without current pathological fracture (ICD- 10) Peripheral neuropathy ?G62.9 - Polyneuropathy, unspecified (ICD-10) Sensorineural hearing loss of both ears ?H90.3 - Sensorineural hearing loss, bilateral (ICD-10) Vitamin D deficiency ?E55.9 - Vitamin D deficiency, unspecified (ICD-10) Essential hypertension ?I10 - Essential (primary) hypertension (ICD-10) Hypothyroidism ?E03.9 - Hypothyroidism, unspecified (ICD-10) Spinal stenosis ?M48.00 - Spinal stenosis, site unspecified (ICD-10) Hiatal hernia ?K44.9 - Diaphragmatic hernia without obstruction or gangrene (ICD-10) 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Z87.81 - Personal history of (healed) traumatic fracture (ICD-10) Status post tonsillectomy ?Z90.89 - Acquired absence of other organs (ICD-10) S/P laparotomy ?Z98.890 - Other specified postprocedural states (ICD-10) 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) ?Z96.652 - Presence of left artificial knee joint (ICD-10) History of hysterectomy ?Z90.710 - Acquired absence of both cervix and uterus (ICD-10) S/P repair of paraesophageal hernia ?Z98.890 - Other specified postprocedural states (ICD-10) ?Z87.19 - Personal history of other diseases of the digestive system (ICD-10) Previous back surgery ?Z98.890 - Other specified postprocedural states (ICD-10) Status post appendectomy ?Z90.49 - Acquired absence of other specified parts of digestive tract (ICD- 10) S/P knee replacement ?Z96.659 - Presence of unspecified artificial knee joint (ICD-10) Family History Father COPD (chronic obstructive pulmonary disease) High blood pressure Mother Dementia Psychiatric illness Social History Narrative: 2 adult children in [place] (they share POA duties). Currently lives at [facility] in Memory Care. What is your current living situation?: I presently have a place to live Problems where you live: no known problems Problems where you live details: lives at [facility] [place] In the past 12 months, utilities in danger of being shut off: no In past 12 months, lack of transportation kept you from medical appts, meetings, work, or getting things needed for daily living: no In the past 12 mos, have been you worried that your food would run out before you had money to buy more?: never true In the past 12 mos, the food you bought just didn't last and you didn't have money to buy more?: never true Highest level of school completed/degree received: high school graduate Smoking Status: Never smoker Do you use any of these nicotine containing products: None Second hand tobacco smoke exposure: No How often do you have a drink containing alcohol: never How often do you have six or more drinks on one occasion: Never AUDIT-C Alcohol total score: 0 Non-prescribed substance use: denies use Caffeine: No How often does anyone, including family, friends and others, physically hurt you : never How often does anyone, including family, friends and others, insult or talk down to you: never How often does anyone, including family, friends and others, threaten you with harm: never How often does anyone, including family, friends and others, scream or curse at you: never Gender Identity: female service: No Exam Const: Vital Signs, click to edit/add: Vital Signs - 24 hr 02/10/24 10:07 02/10/24 10:13 02/10/24 10:55 Temperature 98.5 F Pulse Rate 64 Pulse Rate [Pulse Oximeter] 76 Respiratory Rate 16 Blood Pressure [Ri ght Upper Arm] 149/87 H Pulse Oximetry 96 96 94 Oxygen Delivery Me thod Room Air 02/10/24 11:00 Temperature Pulse Rate 66 Pulse Rate [Pulse Oximeter] Respiratory Rate Blood Pressure [Ri ght Upper Arm] Pulse Oximetry 96 Oxygen Delivery Me thod On arrival with EMS, patient is on in EMS [facility], is alert, conversive, EMS vitals are stable. This is a patient should protecting her airway, breathing independently, no acute hemodynamic instability, no visible signs of bleeding. She has a stable primary survey, secondary survey moved into. We have alert, interactive, independently breathing and talking patient. Pupils are equal round, sclera clear, conjugate gaze, symmetrical function of her face, speech is normal. She is kyphotic but no midline tenderness over neck, no paraspinous tenderness. See no acute traumatic change to her face or scalp. Lungs are maria teresa ar, no midline tenderness to her back but significant kyphosis. No tachypnea. CV regular rate and rhythm, no murmur, normal S1-S2, no S3-S4. Abdomen is soft, nontender, nondistended, no organomegaly or masses. She has no lower extremity edema. She mobilizes her arms and legs without any difficulty, gross neurologic status is intact and no complaints of pain in her extremities at this time. Documenting provider has reviewed patient's vital signs: yes Course Course ED Course: patient will have head CT, cervical spine CT and lumbar CT. Will get a portable chest x-ray on her. I will do point of care ED ultrasound as soon as I am able to. Will get appropriate labs. She will be on appropriate monitoring. Will monitor for other signs and symptoms of injury while here. Consider x-ray or imaging if needed for further complaints. Reevaluation(s) Reevaluation #1: Completed fast exam. Patient is getting quite upset about her family being here, wanting to go home. Reviewed with her were just awaiting labs. 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 We went over this briefly. If they have further questions or would desire to do anything further for treatment with this, they would follow up with Neurology outpatient. We did review that this was compared to his CT from 2021 and would appear that there are changes from them based on the reading of today. It is unclear to me that if proceeding with treatment would change any of her current symptoms. If they do have questions they will need to talk to Neurology. I do not feel that anything emergent needs to be done. I do not think the patient will be able to give us a urinalysis, she did feel like she had urinate but was unable to hold it, did not giving enough time to get staff so she could go to the restroom. Note, family is inclined to do nothing with the normal pressure hydrocephalus finding on the CT which certainly is appropriate given patient's age. Family does not believe that she is on the Xarelto any longer. Vital Signs Vital signs: Initial Vital Signs Pulse Oximetry 96 02/10/24 10:07 Vital Signs Pulse Oximetry 96 02/10/24 10:07 Temperature 98.5 F 02/10/24 10:13 Pulse Rate 66 02/10/24 11:00 Respiratory Rate 16 02/10/24 10:13 Blood Pressure 149/87 H 02/10/24 10:13 Pulse Oximetry 96 02/10/24 11:00 Oxygen Delivery Method Room Air 02/10/24 10:13 Medical Decision Making Lab Data Lab results reviewed: Yes I reviewed the patient's lab results Labs: Lab Results 02/10/24 02/10/24 Range/Units 10:50 10:52 WBC 4.27 L (4.50-11.00) K/uL RBC 4.24 (4.00-5.20) m/uL Hgb 11.6 L (12.0-16.0) gm/dL Hct 38.6 (33.0-51.0) % MCV 91 (80-100) fL MCH 27 (26-34) pg MCHC 30 L (32-36) gm/dL RDW Coeff of Aristeo 14.2 (11.5-15.5) % Plt Count 142 (140-440) K/uL Neut % (Auto) 57.7 (42.0-72.0) % Lymph % (Auto) 27.9 (20-44) % [place] % (Auto) 9.8 (0.0-11.0) % Eos % (Auto) 3.7 (0.0-7.0) % Baso % (Auto) 0.7 (0.0-3.0) % Neut # (Auto) 2.50 (1.7-7.0) K/uL Lymph # (Auto) 1.20 (0.90-2.90) K/uL [place] # (Auto) 0.40 (0.00-0.90) K/UL Eos # (Auto) 0.20 (0.00-0.50) K/uL Baso # (Auto) 0.00 (0.00-0.30) K/uL Abs Immat Gran (auto) 0.00 (0.00-0.30) K/uL Imm/Tot Granulo (auto) 0.2 % Sodium 139 (135-149) mmol/L Potassium 5.3 H (3.6-5.1) mmol/L Chloride 107 (96-114) mmol/L Carbon Dioxide 27 (20-32) mmol/L Anion Gap 5 L (7-15) mEq/L BUN 20 (7-30) mg/dL Creatinine 0.8 (0.5-1.5) mg/dL Estimated Creat Clear 30.76 Estimated GFR 71 ml/min Glucose 111 (60-115) mg/dL Lactate 1.0 (0.5-1.9) mmol/L Calcium 9.5 (8.4-10.6) mg/dL Total Bilirubin 0.6 (0.1-1.5) mg/dL AST 28 (12-35) U/L ALT 8 (4-35) U/L Alkaline Phosphatase 78 (40-150) U/L Total Creatine Kinase 74 (41-117) U/L Troponin I 0.02 (0.01-0.04) ng/mL Total Protein 7.4 (6.0-8.3) g/dL Albumin 4.2 (3.3-5.0) g/dL SARS-CoV-2 (PCR) Negative SARS-CoV-2 (Negative) Influenza Type A (PCR) Negative PCR FLU A (Negative) Influenza Type B (PCR) Negative PCR FLU B (Negative) RSV (PCR) Negative PCR RSV (Negative) Imaging Data CT scan - head: Attestation: I have reviewed the pertinent imaging results. Radiologist's impression: Patient: LADONNA ASKEW Facility:?[facility] Patient ID:?[id number] Site Patient ID:?[id number]. Site :?[id number] Study:?CT-Head TRAUMA CODE-02/10/2024 10:33:31 AM Ordering Physician:?DR. DAVIS Final Report: INDICATION: Trauma, not otherwise described. COMPARISON: 09/02/2022 TECHNIQUE: CT of the head without intravenous contrast. Please note that all CT scans at this facility use dose modulation, iterative reconstruction, and/or weight-based dosing when appropriate to reduce radiation dose to as low as reasonably achievable. FINDINGS: No intracranial hemorrhage. No intracranial mass or mass effect. Intact cuellar- white matter differentiation. Unchanged coalescent bilateral symmetrical periventricular and deep white matter hypodensities consistent with chronic ischemic gliotic changes. Ventriculomegaly, bilateral sylvian fissure widening, upward bowing of the corpus callosum with an acute callosal angle, and narrow sulci and subarachnoid spaces at the vertex are consistent with disproportionately enlarged subarachnoid space hydrocephalus. 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 Intact skull base and cranial vault. Visualized orbits are without significant incidental findings. Visualized paranasal sinuses and mastoid air cells are clear. Mild rightward deviated nasal septum. Left lens implant. IMPRESSION: No acute traumatic injury is identified. 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 Please note that all CT scans at this facility use dose modulation, iterative reconstruction, and/or weight-based dosing when appropriate to reduce radiation dose to as low as reasonably achievable. Dictated by Lupillo Cherry MD @ 02/10/2024 11:14:14 AM (Electronic Signature) CT cervical spine: Attestation: I have reviewed the pertinent imaging results. Radiologist's impression: Patient: LADONNA ASKEW Facility:?[facility] Patient ID:?[id number] Site Patient ID:?[id number]. Site :?[id number] Study:?CT-Spine Cervical TRAUMA CODE-02/10/2024 10:34:41 AM Ordering Physician:?DR. DAVIS Final Report: INDICATION: Fall. COMPARISON: 09/02/2022 TECHNIQUE: CT of the cervical spine without intravenous contrast. Please note that all CT scans at this facility use dose modulation, iterative reconstruction, and/or weight-based dosing when appropriate to reduce radiation dose to as low as reasonably achievable. FINDINGS: Alignment: Degenerative mild, grade 1, anterolisthesis of C3 on C4, C4 on C5, C6 on C7, C7 on T1 and T1 on T2. No abnormal widening of the intervertebral disc spaces, interfacetal joints or interspinous distances. Vertebrae: Vertebral bodies, pedicles, laminae, articular, transverse and spino us processes are intact. Moderate disc degeneration at C5-C6. Bilateral multilevel articular pillar osteoarthrosis, more extensive and advanced on the left, compared to the right. Advanced atlantodental osteoarthrosis. Chronic unchanged extensive posterior odontoid soft tissue thickening and mineralization without significant extrinsic mass effect upon the cervical spinal canal at the craniocervical junction. Soft Tissues: No perivertebral edema or hemorrhage. Asymmetrical enlargement of the left lobe of the thyroid gland without a discrete nodule. Extraspinal Anatomy: No significant findings. IMPRESSION: No acute traumatic injury is identified. Cervical spondylosis described above. Please note that all CT scans at this facility use dose modulation, iterative reconstruction, and/or weight-based dosing when appropriate to reduce radiation dose to as low as reasonably achievable. Dictated by Lupillo Cherry MD @ 02/10/2024 11:20:34 AM (Electronic Signature) CT lumbar spine: Attestation: I have reviewed the pertinent imaging results. Radiologist's impression: Patient: LADONNA ASKEW Facility:?[facility] Patient ID:?[id number] Site Patient ID:?[id number]. Site :?[id number] Study:?CT-Spine Lumbar TRAUMA CODE-02/10/2024 10:35:24 AM Ordering Physician:?DR. DAVIS Final Report: Indication: Injury Technique: CT examination of the lumbosacral spine was performed. Contrast was not administered. Imaging was acquired in the axial plane. Sagittal and coronal reformatted imaging was performed. Please note that all CT scans at this facility use dose modulation, iterative reconstruction, and/or weight-based dosing when appropriate to reduce radiation dose to as low as reasonably achievable. Comparison: November 17, 2022 Findings: Soft tissues: Atherosclerotic change of the aorta. Tortuous aorta. No focal aneurysm. Low-density left adrenal mass consistent with an adenoma or myelolipoma. This measures 3.2 centimeters. Cholelithiasis. Hyperdense lesion on the left probably a hyperdense left renal cyst. This measures about 2.2 centimeters. Similar appearance to the prior study. Osseous structures: Old bilateral rib fractures as incidentally visualized. Marked demineralization. Severe multifocal degenerative change with varying degrees of stenosis on a congenital and acquired basis. Minimal loss of height of the superior endplate of T12 which is unchanged and does not appear to be acute. There is no definite acute fracture or destructive process on the current exam Impression: 1. Marked demineralization. Significant degenerative changes diffusely. Similar appearance to the prior study. 2. Minimal loss of height of the superior endplate of T12 similar to the prior study. No definite acute fracture or destructive process. Old bilateral rib fractures. 3. Incidental soft tissue findings seen in the retroperitoneum. These findings are similar to the prior exam. Please note that all CT scans at this facility use dose modulation, iterative reconstruction, and/or weight-based dosing when appropriate to reduce radiation dose to as low as reasonably achievable. Dictated by Rivas Ruth MD @ 02/10/2024 11:16:10 AM (Electronic Signature) Chest x-ray: Attestation: I have reviewed the pertinent imaging results. Radiologist's impression: Patient: LADONNA ASKEW Facility:?[facility] Patient ID:?[id number] Site Patient ID:?[id number]. Site :?[id number] Study:?XRay-Chest -02/10/2024 10:40:11 AM Ordering Physician:SUSAN Final Report: Indication: Fall, shortness of breath. Technique: One view(s) of the chest. Comparison: 11/06/2023 and 11/05/2023. Findings: Unchanged cardiomediastinal silhouette with atherosclerotic aortic calcifications. Thickened right paratracheal stripe is unchanged and secondary to tortuous great vessels on prior CT. Pulmonary vasculature is slightly crowded secondary to exaggerated thoracic kyphosis and right lung underinflation. No focal consolidation. No pleural effusion or pneumothorax. Multiple bilateral rib fractures in various stages of healing, some of which demonstrate callus formation. Osseous demineralization. High-riding right humeral head in keeping with rotator cuff arthropathy. Impression: No acute cardiopulmonary abnormality identified. No significant change from prior. Dictated by Alycia Feng MD @ 02/10/2024 10:56:11 AM (Electronic Signature) ECG Data Attestation: I personally reviewed and interpreted this ECG as follows: (Sinus rhythm with sinus arrhythmia, 73 beats per minute. No evidence of any active ischemia or infarct at this time. QT corrected 449 milliseconds.) Prior ECG tracings: available for review (Compared to October of 2023, sinus arrhythmia present now.) Critical Care Time Critical Care Time Critical Care Time: Yes Attestation: The patient required my highest level preparedness to intervene emergently and I personally spent this critical care time directly and personally managing the patient. This critical care time included: Obtaining a history; Examining the patient; Pulse oximetry; Ordering and reviewing of studies; Arranging urgent treatment with development of a management plan; Evaluation of patients response to treatment; Frequent reassessment discussions with other providers. This critical care time was performed to assess and manage the high probability of imminent life-threatening deterioration that could result in multiorgan failure. It was exclusive of separate billable procedures and treating other patients and teaching time. Total Critical Care Time in Minutes: 30 Discharge Plan Discharge Clinical Impression: Low back pain, Fall Patient Disposition: Home w/ Parent or Adult Condition: Stable Instructions: Fall Prevention for Older Adults (ED), Acute Low Back Pain (ED) Additional Instructions: Tylenol per standing orders as needed for pain control. Can try some ice or heat to your low back, use whichever makes you feel better. If there are further concerns or new injuries are found from this fall, please seek re- evaluation. Activity Level: Activity as Tolerated Prescriptions: No Action cetirizine [24Hour Allergy] 10 mg tablet 10 mg PO DAILY guaifenesin [Adult Wal-Tussin] 100 mg/5 mL liquid 100 mg PO Q4H PRN loperamide [Anti-Diarrheal (loperamide)] 2 mg tablet 2 mg PO TID PRN melatonin 5 mg tablet 5 mg PO HS metformin 500 mg tablet 500 mg PO DAILY mirtazapine 15 mg tablet 15 mg PO HS Xarelto 10 mg Tablet 10 mg PO DAILY Qty: 34 0RF acetaminophen 500 mg tablet 1,000 mg PO TID Qty: 120 0RF levothyroxine 50 mcg tablet 50 mcg PO DAILY metoprolol succinate 25 mg tablet extended release 24 hr 12.5 mg PO DAILY omeprazole 20 mg capsule,delayed release(DR/EC) 20 mg PO DAILY risedronate 35 mg tablet 35 mg PO .WED@06 tiotropium bromide [Spiriva with HandiHaler] 18 mcg capsule, w/inhalation device 1 cap INHALATION DAILY sertraline 100 mg tablet 150 mg PO DAILY sennosides [Senna Lax] 8.6 mg Tablet 2 mg PO HS melatonin 3 mg Tablet 5 mg PO HS tramadol 50 mg tablet 50 mg PO 3XD PRN nystatin 100,000 unit/gram Cream 1 applic topical BID PRN Rx Instructions: Wash and rinse groin region, then pat dry with towel, then apply thin layer of cream - repeat twice daily for min of 2 weeks Follow Up/Referrals: Timob Pierce MD [Primary Care Provider] - Stand Alone Forms: [facility] Info Instructions Procedures Ultrasound FAST exam #1: Areas examined: pericardial sac/heart, Greene's pouch, spleno-renal access, Pouch of Beto and anterior chest wall Indications: trauma, blunt and altered mental status (Patient with dementia) Exam type: limited abdominal ultrasound and other (Anterior chest wall) Impression: normal exam
--- NOTE | 2024-02-10 10:12 | CT_ITS ---
Patient: LADONNA ASKEW Facility:?[facility] Patient ID:?[id number] Site Patient ID:?[id number]. Site :?[id number] Study:?CT-Spine Lumbar TRAUMA CODE-02/10/2024 10:35:24 AM Ordering Physician:?DR. DAVIS Final Report: Indication: Injury Technique: CT examination of the lumbosacral spine was performed. Contrast was not administered. Imaging was acquired in the axial plane. Sagittal and coronal reformatted imaging was performed. Please note that all CT scans at this facility use dose modulation, iterative reconstruction, and/or weight-based dosing when appropriate to reduce radiation dose to as low as reasonably achievable. Comparison: November 17, 2022 Findings: Soft tissues: Atherosclerotic change of the aorta. Tortuous aorta. No focal aneurysm. Low-density left adrenal mass consistent with an adenoma or myelolipoma. This measures 3.2 centimeters. Cholelithiasis. Hyperdense lesion on the left probably a hyperdense left renal cyst. This measures about 2.2 centimeters. Similar appearance to the prior study. Osseous structures: Old bilateral rib fractures as incidentally visualized. Marked demineralization. Severe multifocal degenerative change with varying degrees of stenosis on a congenital and acquired basis. Minimal loss of height of the superior endplate of T12 which is unchanged and does not appear to be acute. There is no definite acute fracture or destructive process on the current exam Impression: 1. Marked demineralization. Significant degenerative changes diffusely. Similar appearance to the prior study. 2. Minimal loss of height of the superior endplate of T12 similar to the prior study. No definite acute fracture or destructive process. Old bilateral rib fractures. 3. Incidental soft tissue findings seen in the retroperitoneum. These findings are similar to the prior exam. Please note that all CT scans at this facility use dose modulation, iterative reconstruction, and/or weight-based dosing when appropriate to reduce radiation dose to as low as reasonably achievable. Dictated by Rivas Ruth MD @ 02/10/2024 11:16:10 AM Signed by:?Rivas Ruth MD @02/10/2024 11:16:10 AM (Electronic Signature)
[2024-02-10 11:07] LABS: Basophils Percent Auto 0.7 % (0.0-3.0); Eosinophils Percent Auto 3.7 % (0.0-7.0); Hematocrit 38.6 % (33.0-51.0); Hemoglobin* 11.6 gm/dL (12.0-16.0); Immature Granulocytes Pct Auto 0.2 %; Lymphocytes Percent Auto 27.9 % (20-44); Mean Corpuscular HGB Conc 30 gm/dL (32-36); Mean Corpuscular Hemoglobin 27 pg (26-34); Mean Corpuscular Volume 91 fL (80-100); Monocytes Percent Auto 9.8 % (0.0-11.0); Neutrophils Percent Auto 57.7 % (42.0-72.0); Platelet Count* 142 K/uL (140-440); RDW Coefficient of Variation % 14.2 % (11.5-15.5); Red Blood Count 4.24 m/uL (4.00-5.20); White Blood Count* 4.27 K/uL (4.50-11.00)
[2024-02-10 11:28] LABS: Slide Review Reflex No
[2024-02-10 11:29] LABS: Chloride* 107 mmol/L (96-114)
[2024-02-10 11:30] LABS: Albumin* 4.2 g/dL (3.3-5.0); Potassium* 5.3 mmol/L (3.6-5.1); Sodium* 139 mmol/L (135-149)
[2024-02-10 11:32] LABS: Creatinine* 0.8 mg/dL (0.5-1.5); Est. Creatinine Clearance* 30.76; Estimated Glomerular Filt Rate 71 ml/min
[2024-02-10 11:33] LABS: Alanine Aminotransferase* 8 U/L (4-35); Alkaline Phosphatase* 78 U/L (40-150); Anion Gap 5 mEq/L (7-15); Aspartate Amino Transferase* 28 U/L (12-35); Bilirubin Total* 0.6 mg/dL (0.1-1.5); Blood Urea Nitrogen* 20 mg/dL (7-30); Carbon Dioxide* 27 mmol/L (20-32); Glucose* 111 mg/dL (60-115); Total Protein* 7.4 g/dL (6.0-8.3)
[2024-02-10 11:34] LABS: Calcium* 9.5 mg/dL (8.4-10.6); Creatine Kinase* 74 U/L (41-117)
[2024-02-10 11:45] LABS: Troponin I* 0.02 ng/mL (0.01-0.04)
[2024-02-10 11:59] LABS: PCR FLU A Negative PCR FLU A (Negative); PCR FLU B Negative PCR FLU B (Negative); PCR RSV Negative PCR RSV (Negative); SARS PCR* Negative SARS-CoV-2 (Negative)
== END 2024-02-10 12:47 | disposition home or self-care (01) ==
PROVIDERS: Emergency Provider Family Medicine; PCP Family Medicine
DX: M54.50 Low back pain, unspecified (principal); W19.XXXA Unspecified fall, initial encounter
CPT/HCPCS: 36415; 70450; 71045; 72125; 72131; 76604; 76705; 80053; 81001; 82550; 83605; 84484; 85025; 87631; 93005; 93308; 94761; 99285; 99291; G0390

== ENCOUNTER 2024-04-09 10:16 | Outpatient (REF) | payer MEDICARE, OTHER, SELFPAY ==
[2024-04-09 10:29] LABS: Appearance Urine Slightly Cloudy (Clear); Bilirubin Urine Negative (Negative); Blood Urine Negative (Negative); Color Urine Yellow (Yellow); Glucose Urine Negative (Negative); Ketones Urine Negative (Negative); Leukocyte Esterase Urine Negative (Negative); Nitrite Urine Positive (Negative); Protein Urine Negative (Negative); Urobilinogen Urine 0.2 (0.2-1.0); pH Urine 5.5 (5.0-8.5)
[2024-04-09 10:46] LABS: Bacteria Urine Many; RBC Urine 0-2 (0-2); Squamous Epithelial Cell Urine Moderate (None-Few)
== END 2024-04-09 10:17 | disposition home or self-care (01) ==
LOC: NPINS 10:16
PROVIDERS: PCP Family Medicine; Visit Provider Family Medicine
DX: N39.0 Urinary tract infection, site not specified (principal)
CPT/HCPCS: 81001; 81003; 87086; 87186

== ENCOUNTER 2024-05-04 11:21 | Outpatient (REF) | payer MEDICARE, OTHER, SELFPAY ==
[2024-05-04 12:55] LABS: Basophils Percent Auto 0.8 % (0.0-3.0); Eosinophils Percent Auto 5.6 % (0.0-7.0); Hematocrit 36.6 % (33.0-51.0); Hemoglobin* 11.1 gm/dL (12.0-16.0); Lymphocytes Percent Auto 29.5 % (20-44); Mean Corpuscular HGB Conc 30 gm/dL (32-36); Mean Corpuscular Hemoglobin 28 pg (26-34); Mean Corpuscular Volume 92 fL (80-100); Monocytes Percent Auto 9.5 % (0.0-11.0); Neutrophils Percent Auto 54.6 % (42.0-72.0); Platelet Count* 212 K/uL (140-440); RDW Coefficient of Variation % 15.6 % (11.5-15.5); Red Blood Count 3.97 m/uL (4.00-5.20); White Blood Count* 3.59 K/uL (4.50-11.00)
[2024-05-04 13:01] LABS: Slide Review Reflex No
[2024-05-04 13:14] LABS: Hemoglobin A1C* 6.1 % (0-5.6)
== END 2024-05-04 11:22 | disposition home or self-care (01) ==
LOC: NPINS 11:21
PROVIDERS: PCP Family Medicine; Visit Provider Family Medicine
DX: D64.9 Anemia, unspecified (principal); E11.9 Type 2 diabetes mellitus without complications
CPT/HCPCS: 83036; 85025

== ENCOUNTER 2024-06-20 23:26 | Outpatient (CLI) | payer MEDICARE, OTHER, SELFPAY | END 2024-06-20 23:27 | disposition home or self-care (01) | LOC: AMB 06-22 00:47 | PROVIDERS: PCP Family Medicine; Visit Provider Family Medicine | DX: R09.89 Other specified symptoms and signs involving the circulatory and respiratory systems (principal) | CPT/HCPCS: A0425; A0429 ==

== ENCOUNTER 2024-06-20 23:48 | Emergency (ER) | payer MEDICARE, OTHER, SELFPAY ==
[2024-06-20 23:55] VITALS: BP 145/106; PULSE 81; RESP 16; TEMP 36.3; O2SAT 96
--- NOTE | 2024-06-21 00:10 | ED_ITS ---
HPI - General Adult General Chief complaint: Unspecified Complaint, Adult Stated complaint: choking Time Seen by Provider: 06/20/24 23:51 Source: patient, EMS and RN notes reviewed Mode of arrival: EMS Limitations: other ( dementia) History of Present Illness HPI narrative: 88-year-old female presenting via EMS for a choking episode that occurred at [facility]. Patient was eating a baby jany bar inserted choking on a peanut. according to nursing staff, they did several back thrusts and 1 abdominal thrust in the peanut popped out. The patient was breathing and speaking without difficulty. Patient's power of managing attorney requested that she be brought in for evaluation. According to her daughter who is her POA she was told that she was choking and had no other information so she wanted her to be evaluated. Related Data Home Medications ?Medication ?Instructions ?Recorded ?Confirmed levothyroxine 50 mcg tablet 50 mcg PO DAILY 05/08/22 06/20/24 metoprolol succinate 25 mg 12.5 mg PO DAILY 05/08/22 06/20/24 tablet,extended release 24 hr omeprazole 20 mg capsule,delayed 20 mg PO DAILY 05/08/22 06/20/24 release risedronate 35 mg tablet 35 mg PO .WED@06 05/08/22 06/20/24 tiotropium bromide 18 mcg capsule 1 cap inhalation DAILY 05/08/22 06/21/24 with inhalation device (Spiriva with HandiHaler) sertraline 100 mg tablet 150 mg PO DAILY 07/02/22 06/21/24 cetirizine 10 mg tablet (24Hour 10 mg PO DAILY 11/05/23 06/20/24 Allergy) guaifenesin 100 mg/5 mL oral 100 mg PO Q4H PRN 11/05/23 06/20/24 liquid (Adult Wal-Tussin) loperamide 2 mg tablet 2 mg PO TID PRN 11/05/23 06/20/24 (Anti-Diarrheal (loperamide)) melatonin 5 mg tablet 5 mg PO HS 11/05/23 06/20/24 mirtazapine 15 mg tablet 15 mg PO HS 11/05/23 06/20/24 melatonin 3 mg tablet 5 mg PO HS 02/10/24 06/20/24 nystatin 100,000 unit/gram topical 1 applic topical BID PRN 02/10/24 06/20/24 cream sennosides 8.6 mg tablet (Senna 2 mg PO HS 02/10/24 06/21/24 Lax) tramadol 50 mg tablet 50 mg PO 3XD PRN 02/10/24 06/21/24 metformin 500 mg tablet,extended 500 mg PO DAILY 06/20/24 06/20/24 release 24 hr Previous Rx's ?Medication ?Instructions ?Recorded rivaroxaban 10 mg tablet (Xarelto) 10 mg PO DAILY #34 tabs 11/07/23 acetaminophen 500 mg tablet 1,000 mg (2 x 500 mg) PO TID #120 11/11/23 tabs Allergies Allergy/AdvReac Type Severity Reaction Status Date / Time codeine Allergy Intermediate Hives Verified 06/20/24 23:58 lisinopril Allergy Intermediate Cough Verified 06/20/24 23:58 alendronate sodium AdvReac Intermediate Nausea Verified 06/20/24 23:58 Review of Systems Status of ROS: Reports: 6 or more systems reviewed and unremarkable except as noted in History and below ( Patient has no complaints) [facility] Medical History Pulmonary nodules ?R91.8 - Other nonspecific abnormal finding of lung field (ICD-10) Adrenal nodule ?E27.8 - Other specified disorders of adrenal gland (ICD-10) Recurrent UTI ?N39.0 - Urinary tract infection, site not specified (ICD-10) Fall ?W19.XXXA - Unspecified fall, initial encounter (ICD-10) Closed hip fracture ?S72.009A - Fracture of unspecified part of neck of unspecified femur, initial encounter for closed fracture (ICD-10) Elbow pain, chronic ?M25.529 - Pain in unspecified elbow (ICD-10) ?G89.29 - Other chronic pain (ICD-10) Dementia ?F03.90 - Unspecified dementia, unspecified severity, without behavioral disturbance, psychotic disturbance, mood disturbance, and anxiety (ICD-10) Hearing loss ?H91.90 - Unspecified hearing loss, unspecified ear (ICD-10) Adenoma of left adrenal gland ?D35.02 - Benign neoplasm of left adrenal gland (ICD-10) Insomnia ?G47.00 - Insomnia, unspecified (ICD-10) Osteoporosis ?M81.0 - Age-related osteoporosis without current pathological fracture (ICD- 10) Peripheral neuropathy ?G62.9 - Polyneuropathy, unspecified (ICD-10) Sensorineural hearing loss of both ears ?H90.3 - Sensorineural hearing loss, bilateral (ICD-10) Vitamin D deficiency ?E55.9 - Vitamin D deficiency, unspecified (ICD-10) Essential hypertension ?I10 - Essential (primary) hypertension (ICD-10) Hypothyroidism ?E03.9 - Hypothyroidism, unspecified (ICD-10) Spinal stenosis ?M48.00 - Spinal stenosis, site unspecified (ICD-10) Hiatal hernia ?K44.9 - Diaphragmatic hernia without obstruction or gangrene (ICD-10) 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Z87.81 - Personal history of (healed) traumatic fracture (ICD-10) Status post tonsillectomy ?Z90.89 - Acquired absence of other organs (ICD-10) S/P laparotomy ?Z98.890 - Other specified postprocedural states (ICD-10) 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) ?Z96.652 - Presence of left artificial knee joint (ICD-10) History of hysterectomy ?Z90.710 - Acquired absence of both cervix and uterus (ICD-10) S/P repair of paraesophageal hernia ?Z98.890 - Other specified postprocedural states (ICD-10) ?Z87.19 - Personal history of other diseases of the digestive system (ICD-10) Previous back surgery ?Z98.890 - Other specified postprocedural states (ICD-10) Status post appendectomy ?Z90.49 - Acquired absence of other specified parts of digestive tract (ICD- 10) S/P knee replacement ?Z96.659 - Presence of unspecified artificial knee joint (ICD-10) Family History Father COPD (chronic obstructive pulmonary disease) High blood pressure Mother Dementia Psychiatric illness Social History Narrative: 2 adult children in [place] (they share POA duties). Currently lives at [facility] in [facility] Care. What is your current living situation?: I presently have a place to live Problems where you live: no known problems Problems where you live details: lives at [facility] In the past 12 months, utilities in danger of being shut off: no In past 12 months, lack of transportation kept you from medical appts, meetings, work, or getting things needed for daily living: no In the past 12 mos, have been you worried that your food would run out before you had money to buy more?: never true In the past 12 mos, the food you bought just didn't last and you didn't have money to buy more?: never true Highest level of school completed/degree received: high school graduate Smoking Status: Never smoker Do you use any of these nicotine containing products: None Second hand tobacco smoke exposure: No How often do you have a drink containing alcohol: never How often do you have six or more drinks on one occasion: Never AUDIT-C Alcohol total score: 0 Non-prescribed substance use: denies use Caffeine: No How often does anyone, including family, friends and others, physically hurt you : never How often does anyone, including family, friends and others, insult or talk down to you: never How often does anyone, including family, friends and others, threaten you with harm: never How often does anyone, including family, friends and others, scream or curse at you: never Gender Identity: female service: No Exam Narrative: Exam Narrative: Well-nourished , elderly patient in no acute distress. has obvious dementia. Is cooperative and in good spirits. Patient speaks in breathes without difficulty. HEENT: Normocephalic atraumatic. Pupils are equally round reactive to light. Extraocular muscles are intact. Conjunctivae are moist without any icterus noted. Moist mucous membranes. Neck is soft. Cardiovascular: Heart is regular rate and rhythm S1 and S2 are present without any murmurs. Lungs: Decreased breath sounds bilaterally. Abdomen: Soft and nontender nondistended with normal bowel sounds. Extremities: Trace edema bilaterally of lower extremities Skin: Well perfused. Significant kyphosis. Const: Vital Signs, click to edit/add: Vital Signs - 24 hr 06/20/24 23:55 Temperature 97.4 F L Pulse Rate [Pulse Oximeter] 81 Respiratory Rate 16 Blood Pressure [Ri t Upper Arm] 145/106 H Pulse Oximetry 96 Oxygen Delivery Me thod Room Air Course Course ED Course: Discussed with her daughter what happened. Patient was doing well without any further symptoms. Agreed on discharge. Vital Signs Vital signs: Initial Vital Signs Temperature 97.4 F L 06/20/24 23:55 Temperature Source Temporal Artery Scan 06/20/24 23:55 Pulse Rate 81 06/20/24 23:55 Pulse Rhythm Regular 06/20/24 23:55 Pulse Strength 3+ Normal 06/20/24 23:55 Respiratory Rate 16 06/20/24 23:55 Blood Pressure 145/106 H 06/20/24 23:55 Blood Pressure Mean 119 H 06/20/24 23:55 Blood Pressure Position Semi-Fowlers 06/20/24 23:55 Pulse Oximetry 96 06/20/24 23:55 Oxygen Delivery Method Room Air 06/20/24 23:55 Vital Signs Temperature 97.4 F L 06/20/24 23:55 Pulse Rate 81 06/20/24 23:55 Respiratory Rate 16 06/20/24 23:55 Blood Pressure 145/106 H 06/20/24 23:55 Pulse Oximetry 96 06/20/24 23:55 Oxygen Delivery Method Room Air 06/20/24 23:55 Temperature 97.4 F L 06/20/24 23:55 Pulse Rate 81 06/20/24 23:55 Respiratory Rate 16 06/20/24 23:55 Blood Pressure 145/106 H 06/20/24 23:55 Pulse Oximetry 96 06/20/24 23:55 Oxygen Delivery Method Room Air 06/20/24 23:55 Medical Decision Making MDM Narrative Medical decision making narrative: 88-year-old female status post choking episode now resolved. Discharge Plan Discharge Clinical Impression: Choking episode Patient Disposition: Home w/ Parent or Adult Condition: Stable Additional Instructions: Return to ER for difficulty breathing, fever, trouble swallowing, or any other concerning symptoms. Prescriptions: No Action cetirizine [24Hour Allergy] 10 mg tablet 10 mg PO DAILY guaifenesin [Adult Wal-Tussin] 100 mg/5 mL liquid 100 mg PO Q4H PRN loperamide [Anti-Diarrheal (loperamide)] 2 mg tablet 2 mg PO TID PRN melatonin 5 mg tablet 5 mg PO HS mirtazapine 15 mg tablet 15 mg PO HS Xarelto 10 mg Tablet 10 mg PO DAILY Qty: 34 0RF acetaminophen 500 mg tablet 1,000 mg PO TID Qty: 120 0RF metformin 500 mg tablet extended release 24 hr 500 mg PO DAILY levothyroxine 50 mcg tablet 50 mcg PO DAILY metoprolol succinate 25 mg tablet extended release 24 hr 12.5 mg PO DAILY omeprazole 20 mg capsule,delayed release(DR/EC) 20 mg PO DAILY risedronate 35 mg tablet 35 mg PO .WED@06 tiotropium bromide [Spiriva with HandiHaler] 18 mcg capsule, w/inhalation device 1 cap INHALATION DAILY sertraline 100 mg tablet 150 mg PO DAILY sennosides [Senna Lax] 8.6 mg Tablet 2 mg PO HS melatonin 3 mg Tablet 5 mg PO HS tramadol 50 mg tablet 50 mg PO 3XD PRN nystatin 100,000 unit/gram Cream 1 applic topical BID PRN Rx Instructions: Wash and rinse groin region, then pat dry with towel, then apply thin layer of cream - repeat twice daily for min of 2 weeks Follow Up/Referrals: Timbo Pierce MD [Primary Care Provider] - Stand Alone Forms: [facility] Info Instructions
== END 2024-06-21 00:26 | disposition home or self-care (01) ==
LOC: ED 06-21 00:25
PROVIDERS: Emergency Provider Family Medicine; PCP Family Medicine
DX: T17.928A Food in respiratory tract, part unspecified causing other injury, initial encounter (principal)
CPT/HCPCS: 99282; 99283

== ENCOUNTER 2025-01-11 14:41 | Outpatient (REF) | payer MEDICARE, OTHER, SELFPAY ==
[2025-01-11 15:14] LABS: Basophils Absolute Auto 0.03 K/uL (0.00-0.30); Basophils Percent Auto 0.6 % (0.0-3.0); Eosinophils Absolute Auto 0.18 K/uL (0.00-0.50); Eosinophils Percent Auto 3.7 % (0.0-7.0); Immature Granulocytes Abs Auto 0.01 K/uL (0.00-0.30); Immature Granulocytes Pct Auto 0.2 %; Lymphocytes Absolute Auto 1.54 K/uL (0.90-2.90); Lymphocytes Percent Auto 31.8 % (20-44); Mean Corpuscular HGB Conc 31 gm/dL (32-36); Mean Corpuscular Hemoglobin 28 pg (26-34); Mean Corpuscular Volume 92 fL (80-100); Monocytes Percent Auto 9.3 % (0.0-11.0); Neutrophils Absolute Auto 2.63 K/uL (1.7-7.0); Neutrophils Percent Auto 54.4 % (42.0-72.0); Platelet Count* 220 K/uL (140-440); RDW Coefficient of Variation % 14.5 % (11.5-15.5); Red Blood Count 4.23 m/uL (4.00-5.20); White Blood Count* 4.84 K/uL (4.50-11.00)
[2025-01-11 15:33] LABS: Chloride* 104 mmol/L (96-114); Potassium* 5.1 mmol/L (3.6-5.1); Sodium* 140 mmol/L (135-149)
[2025-01-11 15:35] LABS: Slide Review Reflex No
[2025-01-11 15:36] LABS: Anion Gap 8 mEq/L (7-15); Blood Urea Nitrogen* 20 mg/dL (7-30); Calcium* 9.4 mg/dL (8.4-10.6); Carbon Dioxide* 28 mmol/L (20-32); Creatinine* 0.9 mg/dL (0.5-1.5); Estimated Glomerular Filt Rate 61 ml/min; Glucose* 118 mg/dL (60-115)
[2025-01-11 16:57] LABS: Hemoglobin A1C* 6.1 % (0-5.6)
== END 2025-01-11 14:42 | disposition home or self-care (01) ==
LOC: NPINS 14:41
PROVIDERS: PCP Family Medicine; Visit Provider Nurse Practitioner Adult Health
DX: D64.9 Anemia, unspecified (principal); E03.9 Hypothyroidism, unspecified; I10 Essential (primary) hypertension; E11.9 Type 2 diabetes mellitus without complications
CPT/HCPCS: 80048; 83036; 84443; 85025

== ENCOUNTER 2025-01-25 10:57 | Outpatient (REF) | payer MEDICARE, OTHER, SELFPAY ==
[2025-01-25 13:05] LABS: Appearance Urine Clear (Clear); Bilirubin Urine Negative (Negative); Blood Urine Negative (Negative); Color Urine Yellow (Yellow); Glucose Urine Negative (Negative); Ketones Urine Negative (Negative); Leukocyte Esterase Urine 1+ (Negative); Nitrite Urine Positive (Negative); Protein Urine Negative (Negative); Specific Gravity Urine 1.015 (1.000-1.030); Urobilinogen Urine 0.2 (0.2-1.0); pH Urine 5.5 (5.0-8.5)
[2025-01-25 13:23] LABS: Bacteria Urine Many; RBC Urine 0-2 (0-2)
== END 2025-01-25 10:58 | disposition home or self-care (01) ==
LOC: NPINS 10:57
PROVIDERS: PCP Family Medicine; Visit Provider Nurse Practitioner Gerontology
DX: N39.0 Urinary tract infection, site not specified (principal)
CPT/HCPCS: 81001; 87086

== ENCOUNTER 2025-03-13 10:46 | Emergency (ER) | payer MEDICARE, OTHER, SELFPAY ==
--- OUTSIDE RECORDS SUMMARY | 2025-03-13 10:48 | XMS_ITS | Clinical Summary ---
Author Organization [facility] Address [facility] [place] [address] Care Team Providers Care Process Automation Engineer Name Role Phone Jesse Saini MD Unavailable Unavail able Dejah Paz AuD Unavailable [phone] Gabriel Orozco MD Primary Care Provider [phone] Allergies Active Allergy Reactions Criticality Noted Date Comments Alendronate Sodium Other - Describe In Comment Field 01/05/2015 Body ache Codeine GI Upset 01/21/2007 Lisinopril Cough 01/21/2007 Medications ASPIRIN 81 MG TAB Once daily 0 03/20/20 07 Active OCUVITE 1,000 UNIT-60 UNIT-2 MG TAB 1 daily 1 0 06/01/20 09 Active Cholecalciferol, Vitamin D3, (VITAMIN D-3) 2,000 unit tablet Take 1 tablet by mouth once daily. 0 09/29/20 17 Active acetaminophen SR (TYLENOL ARTHRITIS) 650 mg Extended-Release tablet Take 2 tablets by mouth every 8 hours if needed. Max acetaminophen dose: 4000mg in 24 hrs. 0 09/29/20 20 Active melatonin 3 mg tablet Take 1 tablet by mouth at bedtime. 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 90 tablet. 3 06/07/20 21 Active omeprazole (PRILOSEC) 20 mg Delayed-Release capsuleIndications:G astroesophageal reflux disease, unspecified whether esophagitis present Take 1 Capsule (20 mg) by mouth once daily before a meal. 90 capsule. 3 06/07/20 21 Active albuterol HFA (PRO-AIR; VENTOLIN; PROVENTIL) 90 mcg/actuation inhaler 01/15/20 22 Active metoprolol succinate (TOPROL XL) 25 mg Sustained-Release tabletIndications:Pa roxysmal SVT (supraventricular tachycardia) (HC) TAKE ONE TABLET BY MOUTH EVERY DAY 90 Tablet 05/11/20 22 Active spiriva 18 mcg inhalation capsuleIndications:C hronic obstructive pulmonary disease, unspecified COPD type (HC) INHALE THE CONTENTS OF ONE CAPSULE USING THE HANDIHALER ONCE DAILY 90 Capsule 05/11/20 22 Active levothyroxine (SYNTHROID) 50 mcg tabletIndications:Hy pothyroidism, unspecified type TAKE ONE TABLET BY MOUTH EVERY DAY 90 Tablet 06/08/20 22 Active doxycycline (VIBRAMYCIN) 100 mg capsule 06/22/20 22 Active nystatin (MYCOSTATIN) cream 06/17/20 22 Active sertraline (ZOLOFT) 100 mg tabletIndications:In somnia, unspecified type,Anxiety Take 1 Tablet (100 mg) by mouth once daily. 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 06/05/2020 Adenoma of left adrenal gland 09/22/2014 Overview (06/05/2020): Stable on CT 05/08; No further imaging required Insomnia 06/15/2014 Hiatal hernia 05/30/2014 Overview (05/30/2014): EGD 05/2014 large hiatal hernia Osteoporosis 10/15/2013 Overview (03/10/2017): Has not tolerated fosamax Sensorineural hearing loss, bilateral 11/12/2012 S/P knee replacement 12/05/2011 Spinal stenosis 10/26/2009 Unspecified hypothyroidism 04/07/2008 Unspecified vitamin D deficiency 08/17/2007 Unspecified essential hypertension 01/21/2007 Unspecified hereditary and idiopathic peripheral neuropathy 01/21/2007 Resolved Problems Problem Noted Date Diagnosed Date Resolved Date PMR (polymyalgia rheumatica) 06/23/2018 06/23/2018 Sacroiliitis 11/28/2014 02/01/2019 Hypokalemia 09/22/2014 03/10/2017 Hiatal hernia 06/15/2014 06/15/2014 long term (current) use of anticoagulants 12/06/2011 12/23/2011 OA (osteoarthritis) of knee 06/14/2011 06/05/2020 Degeneration of lumbar or jesus mbosacral intervertebral disc 11/26/2010 06/05/2020 Unspecified nerve root and plexus disorder 02/24/2008 01/25/2010 Cervical spondylosis without myelopathy 11/05/2007 06/05/2020 Chronic airway obstruction, not elsewhere classified 03/20/2007 06/23/2018 Unspecified nerve root and plexus disorder 01/21/2007 06/29/2008 Overview (01/21/2007): cervical.. r c 6 Depressive disorder, not elsewhere classified 01/22/20 07 10/22/2007 Unspecified constipation 01/21/200705/2010 Cough 01/21/2007 01/25/2010 Overview (01/21/2007): chronic Closed fracture of unspecifi ed part of vertebral column without mention of spinal cord injury 01/21/2007 06/05/2020 Overview (01/21/2007): t 11-12 DIABETES 09/09/2002 03/10/2017 Unspecified hypothyroidism 0 06/29/2008 Immunizations Immunization Administration Dates Next Due AMB Influenza, IIV3 (Age >=3 years)(Flu Clinic Only) 08/15/2008 AMB Influenza, IIV4 PF (=>6 mos Flulaval,Fluzone Fluarix)(Flu Clinic Only) 07/21/2020 COVID-19 vaccine (dotHIV NTech 30mcg/0.3mL) PF, MDV 12/16/2020,11/25/2020 Influenza Virus, Unspecified 08/01/2014 Influenza, High-dose Inactivated 019,07/16/2016,06/28/2015,2011 Influenza, IIV3 (Age 6-35 mos) 07/15/2011,2009 Influenza, IIV3 (Age >=3 years) 08/01/20 14,08/27/2013,07/31/2012,2010,08/04/2009,08/10/2007,08/27/2004,1 10/27/2002,08/16/2002 Influenza, Inactivated IIV3 (Age 65+ Years) Preserv Free 06/23/2018,07/18/2017 Pneumococcal Poly,23-Valent (Pneumovax) 09/30/2003 Pneumococcal conj 13-Valent (Prevnar 13) 09/13/2014 Td (Age >=7 Years) 11/04/2002 Tdap 05/31/2011 Zoster (Shingrix-RZV, recombinant) 07/22/2021, Zoster (Zostavax-ZVL, live) 01/22/2007 Family History Medical History Relation Name Comments Hypertension Father copd Psychiatric illness Mother dementia Cancer-breast No Family History Relation Name Status Comments Child 1 Alive Child 2 Alive Father Grandchild 1 Alive Grandchild 2 Alive Grandchild 3 Alive Mother Other karla Alive spouse Social History Tobacco Use Types Packs/Day Years Used Date Smoking Tobacco: Never Smokeless Tobacco: Never Tobacco Cessation:Counseling Given: Yes Alcohol Use Standard Drinks/Week Comments Not Currently 0 (1 standard drink = 0.6 oz pur e alcohol) PHQ-2 Answer Date Recorded PHQ-2 TOTAL SCORE 0 07/13/2021 Social Connections Answer Date Recorded Frequency of Communication with Friends and Fami ly Not on file 07/03/2023 Financial Resource Strain Answer Date R ecorded Difficulty of Paying Living Expenses 3 06/28/2022 Difficulty of Paying Living Expenses Not on file 06/28/2022 Food Insecurity Answer Date Recorded Worried About Running Out of Food in the Last Ye ar 1 06/28/2022 Transportation Needs Answer Date Record ed Lack of Transportation (Medical) 1 06/28/2022 Housing Stability Answer Date Recorded Unable to Pay for Housing in the Last Year 1 06/28/2022 Comments No Sex and Gender Information Value Date Recorded Sex Assigned at Not on file Legal Sex Female 5:52 AM CARE REP Gender Identity Not on file Sexual Orientation Not on file Obstetrics History Last Filed Vital Signs Vital Sign Reading Time Taken Comments Blood Pressure 142/81 06/28/2022 11:50 AM CDT Pulse 78 06/28/2022 11:50 AM CDT Temperature 36.8 C (98.3 F) 09/06/2021 10:08 AM CARE REP Respiratory Rate 18 11/22/2014 10:1 6 AM CARE REP Oxygen Saturation 97% 06/28/2022 11: 50 AM CDT Inhaled Oxygen Concentration - - Weight 58.4 kg (128 lb 12.8 oz) 022 11:50 AM CDT Height 149 cm (4' 10.66) 09/06/2021 10 :08 AM CARE REP Body Mass Index 26.32 09/06/2021 10:08 AM CARE REP Plan of Treatment Health Maintenance Due Date Last Done Comments RSV vaccine for adults or (1 - 1-dose 75+ series) 2010 Tetanus booster 05/31/2021 05/31/2011, 11/04/2002 Medicare Wellness for age 65+ 06/08/2022 06/07/2021, 06/05/2020, 02/01/2019, Additional history exists Depression screening for age 12+ 07/13/2022 07/13/2021, 06/07/2021, 05/15/2021, Additional history exists BMI (ht and wt on same day) for age 18+ 09/06/2022 09/06/2021, 08/24/2020, 04/01/2019, Additional history exists COVID-19 vaccine series ( season) 2024 08/14/2021, 12/16/2020, 11/25/2020 Influenza Vaccine (Season Ended) 2025 07/21/2020, 08/08/2019, 06/23/2018, Additional history exists Tdap Completed 05/31/2011 Pneumococcal series for age 50+ Completed 09/13/2014, 09/30/2003 DEXA/DXA scan for age 65+ Completed 2020, 10/07/2013, 03/14/2009, Additional history exists Zoster (shingles) series for age 50+ Completed 07/22/2021, 05/11/2021, 01/22/2007 Hepatitis B series for 19+ Aged Out N o longer eligible based on patient's age to complete this topic Procedures Procedure Name Priority Date/Time Associated Diagnosis Comments XR DXA BONE DENSITY 2 SITES AXIAL Routine 06/26/2021 9:00 AM CDT Osteoporosis, unspecified osteoporosis type, unspecified pathological fracture presence from Last 3 Months or Most Recently Relevant to Health Maintenance Results * (ABNORMAL) XR DXA BONE DENSITY 2 SITES AXIAL (06/26/2021 9:00 AM CDT) Anatomical Region Laterality Modality Spine, HIPS, HIPL, HIPR Other Impressions 06/28/2021 12:12 PM CDT Osteoporosis. RECOMMENDATIONS: The National Osteoporosis Foundation recommends pharmacologic treatment for patients with T-scores of -2.5 or less, patients with prior history of fragility fractures, or patients with 10-year probability of greater than 3% at hips or greater than 20% of suffering major osteoporotic fractures. Recommend continued optimization of calcium and vitamin D intake through dietary means and/or supplementation and regular exercise. Bone density has significantly decreased since last DXA, see numbers above. It should be noted that her spine BMD appears to have increased, however on review of the images she does have some convexity and appearance of possible compression fracture(s) although imaging is not diagnostic in this case. Correlate clinically. Consider pharmacologic therapy for osteoporosis. Follow-up bone density reading in 2 years if therapy initiated to assess therapeutic efficacy. Miryma Mckenzie PA-C Narrative 06/28/2021 12:12 PM CDT For Patients: Results are automatically released to your [employer] ([email or web address]) account once available, in compliance with federal regulations. This means that you may see your results before your provider has had a chance to review them. Please allow 2-3 business days for your provider to comment on the results. XR DXA Bone Mineral Density (BMD) EXAM LOCATION: [facility] [address] [facility] [address] PATIENT NAME: Amberly Darnell DATE OF : 1935 EXAM DATE: 06/26/2021 REQUESTING PROVIDER: Gabriel Orozco MD GENDER AT : female HEIGHT: 4' 11.02 (08/24/2020) WEIGHT: 128 lb 3.2 oz (06/07/2021) MENOPAUSAL STATUS: Postmenopausal RACE/ETHNICITY: White RISK FACTORS: Vitamin D Deficiency and White Race CURRENT MEDICATION FOR BONE LOSS: NONE INDICATION: Follow-up of existing osteoporosis COMPARISON DATE(S): 2012 DXA scans are compared to prior studies for a patient only when the two (or more) studies were performed on the same scanner. It is not possible to compare data generated on one scanner to data from another because there are not standards in DXA equipment. This applies even if the two scanners are made by the same proposal director. PROCEDURE: Dual-energy x-ray absorptiometry performed with routine technique. Reporting is completed in the form of a T-score. The T-score represents the standard deviation from peak bone mass based on young healthy adult. A Z-score is used for diagnosis in premenopausal women, and for men under the age of 50. FINDINGS: RESULT LUMBAR SPINE L1 - L4 BMD: 1.144 g/cm2 T-Score: -0.4 Z-Score: + 1.8 Comparison to most recent scan in 2013: Increase 2.3%. RESULT FEMORAL NECK Right Femoral Neck BMD: 0.534 g/cm2 Right Femoral Neck T-Score: -3.6 Right Femoral Neck Z-Score: -1.1 Comparison to most recent scan in 2013: Decrease 19.0%. Left Femoral Neck BMD: 0.504 g/cm2 Left Femoral Neck T-Score: -3.8 Left Femoral Neck Z-Score: -1.3 Comparison to most recent scan in 2013: Decrease 30.0%. RESULT TOTAL HIP Right Total Femur BMD: 0.521 g/cm2 Right Hip T-Score: -3.9 Right Hip Z-Score: -1.4 Comparison to most recent scan in 2013: Decrease 29.1%. Left Total Femur BMD: 0.564 g/cm2 Left Hip T-Score: -3.5 Left Hip Z-Score: -1.0 Comparison to most recent scan in 2013: Decrease 26.5%. WHO criteria: Normal: T-score at or above -1 SD Osteopenia: T-score between -1.1 and -2.4 SD Osteoporosis: T-score at or below -2.5 SD Gabriel Orozco MD DEXA Final Resu lt from Last 3 Months or Most Recently Relevant to Health Maintenance Insurance HP FREEDOM HB ONLY MEDICARE PART B HB ONLY MEDICARE PB ONLY HP [place] GON[place] [id number] Care Teams Process Automation Engineer Relationship Specialty Start Date End Date Gabriel Orozco MD [address] [facility] [address] PCP - General Family Practice 10/24/15 Jesse Saini MD Orthopedics Surgery - Orthopedics 06/14/11 Dejah Paz AuD Audiology 11/12/12
--- OUTSIDE RECORDS SUMMARY | 2025-03-13 10:48 | XMS_ITS ---
Author Organization [facility] Care Team Providers Care Bundling Machine Operator Name Role Phone Ml Smith Unavailable Unavailable Sharonda Wilson Unavailable Unavailable Timbo Pierce Unavailable Unavailable Allergies and adverse reactions Code CodeSystem Substance Reaction Severity StartDate Concern Status 96753 RXNORM Lisinopril Moderate 11/11/2023 active Alendronate Sodium Moderate 11/11/2023 a ctive Care Team Name Role Address Phone Organization Dates Timbo Pierce [facility] [address], [address], [place], [address], [facility] (Office): [facility] 11/11/2023 - 12/02/2023 Ml Smith [facility], [facility] 11/11/2023 - 12/02/2023 Sharonda Wilson [address] [address], [place], [facility], [place] (Office): : [facility] 11/11/2023 - 12/02/2023 Immunizations Immunization Status Vaccine Details Vaccine Code CodeSystem Date Notes TB 2 Step Mantoux Skin Test completed tuberculin skin test; unspecified formulation lotNumber: [id number] expiry: 02/16/2027 Mfg: tubersol Given 0.1 ml Right Forearm subcutaneously Step 2 of Multi-step with next step required 98 CVX created date: 11/30/2023 consent date: 11/30/2023 administer ed date: 11/30/2023 TB 2 Step Mantoux Skin Test completed tuberculin skin test; unspecified formulation lotNumber: [id number] expiry: 02/16/2027 Mfg: [employer] Given 0.1 ml Left Forearm intradermally Step 1 of Multi-step with next step required 98 CVX created date: 11/14/2023 consent date: 11/13/2023 administer ed date: 11/14/2023 Educated by Linda Martínez RN on 08/30/2024 TDAP completed tetanus toxoid, reduced diphtheria toxoid, and acellular pertussis vaccine, adsorbed 115 CVX created date: 11/11/2023 administer ed date: 05/31/2011 PPSV23, Pneumovax 23 completed pneumococcal polysaccharide vaccine, 23 valent 33 CVX created date: 11/11/2023 administer ed date: 09/30/2003 PCV13, [id number] completed pneumococcal conjugate vaccine, 13 valent 133 CVX created date: 11/11/2023 administer ed date: 09/13/2014 Influenza-High Dose completed Influenza, high-dose, split virus, quadrivalent, injectable, preservative free 197 CVX created date: 11/11/2023 administer ed date: 07/16/2023 Zostavax (Live Shingles) completed zoster vaccine, live 121 CVX created date: 11/11/2023 administer ed date: 07/22/2021 Zostavax (Live Shingles) completed zoster vaccine, live 121 CVX created date: 11/11/2023 administer ed date: 05/11/2021 COVID-19 Vaccine dose 1 completed SARS-COV-2 (COVID-19) vaccine, mRNA, spike protein, LNP, preservative free, 30 mcg/0.3mL dose Mfg: [employer] 208 CVX created date: 11/11/2023 administer ed date: 11/25/2020 COVID-19 Vaccine dose 2 completed SARS-COV-2 (COVID-19) vaccine, mRNA, spike protein, LNP, preservative free, 30 mcg/0.3mL dose Mfg: [employer] 208 CVX created date: 11/11/2023 administer ed date: 12/16/2020 COVID-19 Vaccine dose 3 completed SARS-COV-2 (COVID-19) vaccine, mRNA, spike protein, LNP, preservative free, 30 mcg/0.3mL dose Mfg: [employer] 208 CVX created date: 11/11/2023 administer ed date: 08/14/2021 COVID-19 Vaccine dose 4 completed SARS-COV-2 (COVID-19) vaccine, mRNA, spike protein, LNP, preservative free, 30 mcg/0.3mL dose Mfg: [employer] 208 CVX created date: 11/11/2023 administer ed date: 07/05/2022 COVID-19 Vaccine dose 5 completed SARS-COV-2 (COVID-19) vaccine, mRNA, spike protein, LNP, preservative free, 30 mcg/0.3mL dose Mfg: Pf[employer] 208 CVX created date: 11/11/2023 administer ed date: 02/18/2023 COVID-19 Vaccine dose 6 completed SARS-COV-2 (COVID-19) vaccine, mRNA, spike protein, LNP, bivalent, preservative free, 50 mcg/0.5 mL or 25 mcg/0.25 mL dose Mfg: [facility] 229 CVX created date: 11/11/2023 administer ed date: 09/03/2023 Mental Status Section Date Assessment Total Score Description 12/02/2023 BIMS 13 cognitively int act CAM 0 No delirium ind icated PHQ-9 00 11/13/2023 BIMS 10 moderate cognit blanche impairment CAM 0 No delirium ind icated PHQ-9 01 minimal depress ion Problems Problem # Description Date of onset Resolved Date Code CodeSystem Concern Status 1 PAIN IN RIGHT ELBOW [address] active 2 OTHER SPECIFIED PERSONAL RISK FACTORS, NOT ELSEWHERE CLASSIFIED [address] active 3 AGE-RELATED OSTEOPOROSIS WITHOUT CURRENT PATHOLOGICAL FRACTURE [address] active 4 CEREBROVASCULAR DISEASE, UNSPECIFIED [address] active 5 CHRONIC OBSTRUCTIVE PULMONARY DISEASE, UNSPECIFIED [address] active 6 CONSTIPATION, UNSPECIFIED [address] active 7 DEPRESSION, UNSPECIFIED [address] active 8 DISPLACED INTERTROCHANTERIC FRACTURE OF RIGHT FEMUR, SUBSEQUENT ENCOUNTER FOR CLOSED FRACTURE WITH ROUTINE HEALING [address] active 9 ESSENTIAL (PRIMARY) HYPERTENSION [address] active 10 GASTRO-ESOPHAGEAL REFLUX DISEASE WITHOUT ESOPHAGITIS [address] active 11 HISTORY OF FALLING [address] active 12 HYPOTHYROIDISM, UNSPECIFIED [address] active 13 INSOMNIA, UNSPECIFIED [address] active 14 POLYNEUROPATHY, UNSPECIFIED [address] active 15 PRESENCE OF LEFT ARTIFICIAL KNEE JOINT [address] active 16 SENSORINEURAL HEARING LOSS, BILATERAL [address] active 17 SPINAL STENOSIS, SITE UNSPECIFIED [address] active 18 TYPE 2 DIABETES MELLITUS WITHOUT COMPLICATIONS [address] active 19 VASCULAR DEMENTIA, UNSPECIFIED SEVERITY, WITHOUT BEHAVIORAL DISTURBANCE, PSYCHOTIC DISTURBANCE, MOOD DISTURBANCE, AND ANXIETY [id number] active Reason for Referral No Reasons for Referral Entered Social History Social History Observation Description Start Date End Date Code Code System Current Smoking Status Tobacco smoking consumption unknown 888408894 SNOMED CT Sex Assigned At Female 1935 04676-2 [facility] Gender Identity Vital Signs Code Code System Vitals Name Values and Units Timing Information 87485-0 LOINC Pain Level Value=0.0 12/02/2023 8462-4 LOINC Blood Pressure-Diastolic Value=79 Un its=mmHg 12/02/2023 8480-6 [facility] Blood Pressure-Systolic Zqkvw=149 Un its=mmHg 12/02/2023 8867-4 [facility] Heart rate Value=79.0 Units=/min 24294-9 [facility] Weight Dvhea=360.0 Units=Lbs 09/2024 9279-1 [facility] Respiratory Rate Value=17.0 Units=/m in 11/28/2023 8310-5 [facility] Body Temperature Value=97.0 Units= F 11/28/2023 90440-6 [facility] O2 % BldC Oximetry Value=92.0 Units= % 11/28/2023 8302-2 [facility] Height Value=62.0 Units=Inches 11/13/2023
[2025-03-13 10:56] VITALS: BP 152/76; PULSE 75; RESP 24; TEMP 36.8; O2SAT 94; BMI 23.2
--- NOTE | 2025-03-13 11:07 | ED.GENADULT ---
HPI - General Adult General Chief complaint: Urogenital Problems, Female Stated complaint: uti Time Seen by Provider: 03/13/25 10:58 History of Present Illness HPI narrative: This 89-year-old female resides at [facility] and has history of frequent recurrent urinary tract infections. She comes in today with similar symptoms as before with increased frequency. Family members stating also that she seems a bit more confused. She does arrive here with normal vital signs. Related Data Home Medications ?Medication ?Instructions ?Recorded ?Confirmed levothyroxine 50 mcg tablet 50 mcg PO DAILY 05/08/22 06/20/24 metoprolol succinate 25 mg 12.5 mg PO DAILY 05/08/22 06/20/24 tablet,extended release 24 hr omeprazole 20 mg capsule,delayed 20 mg PO DAILY 05/08/22 06/20/24 release risedronate 35 mg tablet 35 mg PO .WED@06 05/08/22 06/20/24 tiotropium bromide 18 mcg capsule 1 cap inhalation DAILY 05/08/22 06/21/24 with inhalation device (Spiriva with HandiHaler) sertraline 100 mg tablet 150 mg PO DAILY 07/02/22 06/21/24 cetirizine 10 mg tablet (24Hour 10 mg PO DAILY 11/05/23 06/20/24 Allergy) guaifenesin 100 mg/5 mL oral 100 mg PO Q4H PRN 11/05/23 06/20/24 liquid (Adult Wal-Tussin) loperamide 2 mg tablet 2 mg PO TID PRN 11/05/23 06/20/24 (Anti-Diarrheal (loperamide)) melatonin 5 mg tablet 5 mg PO HS 11/05/23 06/20/24 mirtazapine 15 mg tablet 15 mg PO HS 11/05/23 06/20/24 melatonin 3 mg tablet 5 mg PO HS 02/10/24 06/20/24 nystatin 100,000 unit/gram topical 1 applic topical BID PRN 02/10/24 06/20/24 cream sennosides 8.6 mg tablet (Senna 2 mg PO HS 02/10/24 06/21/24 Lax) tramadol 50 mg tablet 50 mg PO 3XD PRN 02/10/24 06/21/24 metformin 500 mg tablet,extended 500 mg PO DAILY 06/20/24 06/20/24 release 24 hr Previous Rx's ?Medication ?Instructions ?Recorded rivaroxaban 10 mg tablet (Xarelto) 10 mg PO DAILY #34 tabs 11/07/23 acetaminophen 500 mg tablet 1,000 mg (2 x 500 mg) PO TID #120 11/11/23 tabs cephalexin 500 mg capsule 500 mg PO TID 10 days #30 caps 03/13/25 Allergies Allergy/AdvReac Type Severity Reaction Status Date / Time codeine Allergy Intermediate Hives Verified 06/20/24 23:58 lisinopril Allergy Intermediate Cough Verified 06/20/24 23:58 alendronate sodium AdvReac Intermediate Nausea Verified 06/20/24 23:58 Review of Systems Status of ROS: Reports: 10 or more systems reviewed and unremarkable except as noted in History and below Narrative: Constitutional: No fevers, no weight gain or loss. Eyes: No discharge. No vision changes. HENT: No congestion, no sore throat, no ear pain. Cardiovascular: No chest pain, no palpitations. Respiratory: No shortness of breath, no wheezes, no cough. Gastrointestinal: No abdominal pain, no vomiting, no diarrhea. Genitourinary: Increased frequency. Musculoskeletal: Normal range of motion. Skin: No rashes, no pruritis. Neurological: No dizziness, weakness, sensory change, speech change. All other systems reviewed and are negative. [facility] Medical History Pulmonary nodules ?R91.8 - Other nonspecific abnormal finding of lung field (ICD-10) Adrenal nodule ?E27.8 - Other specified disorders of adrenal gland (ICD-10) Recurrent UTI ?N39.0 - Urinary tract infection, site not specified (ICD-10) Fall ?W19.XXXA - Unspecified fall, initial encounter (ICD-10) Closed hip fracture ?S72.009A - Fracture of unspecified part of neck of unspecified femur, initial encounter for closed fracture (ICD-10) Elbow pain, chronic ?M25.529 - Pain in unspecified elbow (ICD-10) ?G89.29 - Other chronic pain (ICD-10) Dementia ?F03.90 - Unspecified dementia, unspecified severity, without behavioral disturbance, psychotic disturbance, mood disturbance, and anxiety (ICD-10) Hearing loss ?H91.90 - Unspecified hearing loss, unspecified ear (ICD-10) Adenoma of left adrenal gland ?D35.02 - Benign neoplasm of left adrenal gland (ICD-10) Insomnia ?G47.00 - Insomnia, unspecified (ICD-10) Osteoporosis ?M81.0 - Age-related osteoporosis without current pathological fracture (ICD-10) Peripheral neuropathy ?G62.9 - Polyneuropathy, unspecified (ICD-10) Sensorineural hearing loss of both ears ?H90.3 - Sensorineural hearing loss, bilateral (ICD-10) Vitamin D deficiency ?E55.9 - Vitamin D deficiency, unspecified (ICD-10) Essential hypertension ?I10 - Essential (primary) hypertension (ICD-10) Hypothyroidism ?E03.9 - Hypothyroidism, unspecified (ICD-10) Spinal stenosis ?M48.00 - Spinal stenosis, site unspecified (ICD-10) Hiatal hernia ?K44.9 - Diaphragmatic hernia without obstruction or gangrene (ICD-10) 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Z87.81 - Personal history of (healed) traumatic fracture (ICD-10) Status post tonsillectomy ?Z90.89 - Acquired absence of other organs (ICD-10) S/P laparotomy ?Z98.890 - Other specified postprocedural states (ICD-10) 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) ?Z96.652 - Presence of left artificial knee joint (ICD-10) History of hysterectomy ?Z90.710 - Acquired absence of both cervix and uterus (ICD-10) S/P repair of paraesophageal hernia ?Z98.890 - Other specified postprocedural states (ICD-10) ?Z87.19 - Personal history of other diseases of the digestive system (ICD-10) Previous back surgery ?Z98.890 - Other specified postprocedural states (ICD-10) Status post appendectomy ?Z90.49 - Acquired absence of other specified parts of digestive tract (ICD-10) S/P knee replacement ?Z96.659 - Presence of unspecified artificial knee joint (ICD-10) Family History Father COPD (chronic obstructive pulmonary disease) High blood pressure Mother Dementia Psychiatric illness Social History Narrative: 2 adult children in [place] (they share POA duties). Currently lives at [facility] in [facility]. What is your current living situation?: I presently have a place to live Problems where you live: no known problems Problems where you live details: lives at [facility] In the past 12 months, utilities in danger of being shut off: no In past 12 months, lack of transportation kept you from medical appts, meetings, work, or getting things needed for daily living: no In the past 12 mos, have been you worried that your food would run out before you had money to buy more?: never true In the past 12 mos, the food you bought just didn't last and you didn't have money to buy more?: never true Highest level of school completed/degree received: high school graduate Smoking Status: Never smoker Do you use any of these nicotine containing products: None Second hand tobacco smoke exposure: No How often do you have a drink containing alcohol: never How often do you have six or more drinks on one occasion: Never AUDIT-C Alcohol total score: 0 Non-prescribed substance use: denies use Caffeine: No How often does anyone, including family, friends and others, physically hurt you: never How often does anyone, including family, friends and others, insult or talk down to you: never How often does anyone, including family, friends and others, threaten you with harm: never How often does anyone, including family, friends and others, scream or curse at you: never Gender Identity: female service: No Exam Narrative: Exam Narrative: Constitutional: Well-developed, well-nourished, no acute distress. HEENT: Normocephalic, atraumatic. Neck: Normal range of motion. Nontender. Supple. Heart: Regular. No murmurs. Normal rate. Intact distal pulses. Lungs: Clear to auscultation. No chest discomfort. No wheezes, rhonchi, or rales. Abdomen: Normal bowel sounds. Nontender. No rebound tenderness. Genitalia: Deferred. Back: No midline tenderness. Normal range of motion. Extremities: Normal range of motion. No injury. Skin: Intact. No rash. Warm. No erythema or pallor. Neurologic: No altered sensation. No weakness. Alert and oriented. Psychiatric: No suicidality. No anxiety or depression. No insomnia. Nursing notes and vitals signs are reviewed. Const: Vital Signs, click to edit/add: Vital Signs - 24 hr 03/13/25 10:56 Temperature 98.2 F Pulse Rate [Pulse Oximeter] 75 Respiratory Rate 24 Blood Pressure [Le ft Upper Arm] 152/76 H Pulse Oximetry 94 Oxygen Delivery Me thod Room Air Course Vital Signs Vital signs: Initial Vital Signs Temperature 98.2 F 03/13/25 10:56 Temperature Source Temporal Artery Scan 03/13/25 10:56 Pulse Rate 75 03/13/25 10:56 Respiratory Rate 24 03/13/25 10:56 Blood Pressure 152/76 H 03/13/25 10:56 Blood Pressure Mean 101 03/13/25 10:56 Blood Pressure Position Supine 03/13/25 10:56 Pulse Oximetry 94 03/13/25 10:56 Oxygen Delivery Method Room Air 03/13/25 10:56 Vital Signs Temperature 98.2 F 03/13/25 10:56 Pulse Rate 75 03/13/25 10:56 Respiratory Rate 24 03/13/25 10:56 Blood Pressure 152/76 H 03/13/25 10:56 Pulse Oximetry 94 03/13/25 10:56 Oxygen Delivery Method Room Air 03/13/25 10:56 Temperature 98.2 F 03/13/25 10:56 Pulse Rate 75 03/13/25 10:56 Respiratory Rate 24 03/13/25 10:56 Blood Pressure 152/76 H 03/13/25 10:56 Pulse Oximetry 94 03/13/25 10:56 Oxygen Delivery Method Room Air 03/13/25 10:56 Medications Administered Medications: Generic Name Dose Route Start Last Admin Trade Name Krissy PRN Reason Stop Dose Admin Lidocaine HCl 2.1 ml 03/13/25 12:54 03/13/25 13:07 Lidocaine 1% 5 Ml (Pf) 5 Ml Vial IM 2.1 ml DIRECTED PRN Administration Pain Discontinued Medications Generic Name Dose Route Start Last Admin Trade Name Krissy PRN Reason Stop Dose Admin Ceftriaxone Sodium 1 gm 03/13/25 12:54 03/13/25 13:07 Ceftriaxone 1 Gm Vial IM 03/13/25 12:55 1 gm ONCE ONE Administration Medical Decision Making MDM Narrative Medical decision making narrative: This patient has a history of recurrent urinary tract infections and her primary symptom is agitation and irritation with confusion. She does have dementia and there is report of increased urinary frequency. Urinalysis does show evidence of infection. The patient did receive an intramuscular injection of Rocephin 1 g. She is okay to be discharged back to her residence. I did provide prescription for Keflex. Lab Data Labs: Lab Results 03/13/25 Range/Units 12:10 Urine Color Yellow (Yellow) Urine Appearance Slightly Cloudy A (Clear) Urine pH 5.5 (5.0-8.5) Ur Specific [place] <= 1.005 (1.000-1.030) Urine Protein Negative (Negative) Urine Glucose (UA) Negative (Negative) Urine Ketones Negative (Negative) Urine Blood Trace-intact A (Negative) Urine Nitrite Positive A (Negative) Urine Bilirubin Negative (Negative) Urine Urobilinogen 0.2 (0.2-1.0) Ur Leukocyte Esterase 2+ A (Negative) Urine RBC 5-10 A (0-2) Urine WBC 25-50 A (0-5) Ur Squamous Epith Cells Few (None-Few) Urine Bacteria Moderate A (None) Discharge Plan Discharge Clinical Impression: Urinary tract infection Patient Disposition: Home w/ Parent or Adult Condition: Stable Additional Instructions: Take medication as prescribed. Follow up with MD for ongoing management. Return if worsening. Prescriptions: New cephalexin 500 mg capsule 500 mg PO TID 10 Days Qty: 30 0RF No Action cetirizine [24Hour Allergy] 10 mg tablet 10 mg PO DAILY guaifenesin [Adult Wal-Tussin] 100 mg/5 mL liquid 100 mg PO Q4H PRN loperamide [Anti-Diarrheal (loperamide)] 2 mg tablet 2 mg PO TID PRN melatonin 5 mg tablet 5 mg PO HS mirtazapine 15 mg tablet 15 mg PO HS Xarelto 10 mg Tablet 10 mg PO DAILY Qty: 34 0RF acetaminophen 500 mg tablet 1,000 mg PO TID Qty: 120 0RF metformin 500 mg tablet extended release 24 hr 500 mg PO DAILY levothyroxine 50 mcg tablet 50 mcg PO DAILY metoprolol succinate 25 mg tablet extended release 24 hr 12.5 mg PO DAILY omeprazole 20 mg capsule,delayed release(DR/EC) 20 mg PO DAILY risedronate 35 mg tablet 35 mg PO .WED@06 tiotropium bromide [Spiriva with HandiHaler] 18 mcg capsule, w/inhalation device 1 cap INHALATION DAILY sertraline 100 mg tablet 150 mg PO DAILY sennosides [Senna Lax] 8.6 mg Tablet 2 mg PO HS melatonin 3 mg Tablet 5 mg PO HS tramadol 50 mg tablet 50 mg PO 3XD PRN nystatin 100,000 unit/gram Cream 1 applic topical BID PRN Rx Instructions: Wash and rinse groin region, then pat dry with towel, then apply thin layer of cream - repeat twice daily for min of 2 weeks Follow Up/Referrals: Timbo Pierce MD [Primary Care Provider, Family Practice] Stand Alone Forms: MyHealth Info Instructions
--- OUTSIDE RECORDS SUMMARY | 2025-03-13 11:18 | XMS_ITS ---
Author Organization [facility] [place] Care Team Providers Care Sanitation Supervisor Name Role Phone Ml Smith Unavailable Unavailable Sharonda Wilson Unavailable Unavailable Timbo Pierce Unavailable Unavailable Allergies and adverse reactions Code CodeSystem Substance Reaction Severity StartDate Concern Status 34009 RXNORM Lisinopril Moderate 11/11/2023 active Alendronate Sodium Moderate 11/11/2023 a ctive Care Team Name Role Address Phone Organization Dates Timbo Pierce [facility] [address], [address], [place], [address], [facility] (Office): [facility] 11/11/2023 - 12/02/2023 Ml Smith [facility], [facility] 11/11/2023 - 12/02/2023 Sharonda Wilson [address], [place], [facility], [place] (Office): : [facility] 11/11/2023 - 12/02/2023 Immunizations Immunization Status Vaccine Details Vaccine Code CodeSystem Date Notes TB 2 Step Mantoux Skin Test completed tuberculin skin test; unspecified formulation lotNumber: [id number] expiry: 02/16/2027 Mfg: tubersol Given 0.1 ml Right Forearm subcutaneously Step 2 of Multi-step with next step required 98 CVX created date: 11/30/2023 consent date: 11/30/2023 administer ed date: 11/30/2023 TB 2 Step Mantoux Skin Test completed tuberculin skin test; unspecified formulation lotNumber: [id number] expiry: 02/16/2027 Mfg: [employer] Given [...] date: 11/11/2023 administer ed date: 09/30/2003 PCV13, [id number] completed pneumococcal conjugate vaccine, 13 valent 133 [...] LNP, preservative free, 30 mcg/0.3mL dose Mfg: [employer] 208 CVX created date: 11/11/2023 administer ed date: 11/25/2020 COVID-19 Vaccine dose 2 completed SARS-COV-2 (COVID-19) vaccine, mRNA, spike protein, LNP, preservative free, 30 mcg/0.3mL dose Mfg: [employer] 208 CVX created date: 11/11/2023 administer ed date: 12/16/2020 COVID-19 Vaccine dose 3 completed SARS-COV-2 (COVID-19) vaccine, mRNA, spike protein, LNP, preservative free, 30 mcg/0.3mL dose Mfg: [employer] 208 CVX created date: 11/11/2023 administer ed date: 08/14/2021 COVID-19 Vaccine dose 4 completed SARS-COV-2 (COVID-19) vaccine, mRNA, spike protein, LNP, preservative free, 30 mcg/0.3mL dose Mfg: [employer] 208 CVX created date: 11/11/2023 administer ed date: 07/05/2022 COVID-19 Vaccine dose 5 completed SARS-COV-2 (COVID-19) vaccine, mRNA, spike protein, LNP, preservative free, 30 mcg/0.3mL dose Mfg: Pf[employer] 208 CVX created date: 11/11/2023 administer ed date: 02/18/2023 COVID-19 Vaccine dose 6 completed SARS-COV-2 (COVID-19) vaccine, mRNA, spike protein, LNP, bivalent, preservative free, 50 mcg/0.5 mL or 25 mcg/0.25 mL dose Mfg: [facility] 229 CVX created date: 11/11/2023 administer ed [...] Status 1 PAIN IN RIGHT ELBOW [address] active 2 OTHER SPECIFIED PERSONAL RISK FACTORS, NOT ELSEWHERE CLASSIFIED [address] active 3 AGE-RELATED OSTEOPOROSIS WITHOUT CURRENT PATHOLOGICAL FRACTURE [address] active 4 CEREBROVASCULAR DISEASE, UNSPECIFIED [address] active 5 CHRONIC OBSTRUCTIVE PULMONARY DISEASE, UNSPECIFIED [address] active 6 CONSTIPATION, UNSPECIFIED [address] active 7 DEPRESSION, UNSPECIFIED [address] active 8 DISPLACED INTERTROCHANTERIC FRACTURE OF RIGHT FEMUR, SUBSEQUENT ENCOUNTER FOR CLOSED FRACTURE WITH ROUTINE HEALING [address] active 9 ESSENTIAL (PRIMARY) HYPERTENSION [address] active 10 GASTRO-ESOPHAGEAL REFLUX DISEASE WITHOUT ESOPHAGITIS [address] active 11 HISTORY OF FALLING [address] active 12 HYPOTHYROIDISM, UNSPECIFIED [address] active 13 INSOMNIA, UNSPECIFIED [address] active 14 POLYNEUROPATHY, UNSPECIFIED [address] active 15 PRESENCE OF LEFT ARTIFICIAL KNEE JOINT [address] active 16 SENSORINEURAL HEARING LOSS, BILATERAL [address] active 17 SPINAL STENOSIS, SITE UNSPECIFIED [address] active 18 TYPE 2 DIABETES MELLITUS WITHOUT COMPLICATIONS [address] active 19 VASCULAR DEMENTIA, UNSPECIFIED SEVERITY, WITHOUT BEHAVIORAL DISTURBANCE, PSYCHOTIC DISTURBANCE, MOOD DISTURBANCE, AND ANXIETY [id number] active Reason for Referral No Reasons for Referral Entered Social History Social History Observation Description Start Date End Date Code Code System Current Smoking Status Tobacco smoking consumption unknown 047118667 SNOMED CT Sex Assigned At Female 1935 92024-2 [facility] Gender Identity Vital Signs Code Code System Vitals Name Values and Units Timing Information 42574-2 LOINC Pain Level Value=0.0 12/02/2023 8462-4 LOINC Blood Pressure-Diastolic Value=79 Un its=mmHg 12/02/2023 8480-6 [facility] Blood Pressure-Systolic Bprdg=402 Un its=mmHg 12/02/2023 8867-4 [facility] Heart rate Value=79.0 Units=/min 03292-3 [facility] Weight Kiksb=782.0 Units=Lbs 09/2024 9279-1 [facility] Respiratory Rate Value=17.0 Units=/m in 11/28/2023 8310-5 [facility] Body Temperature Value=97.0 Units= F 11/28/2023 14300-5 [facility] O2 % BldC Oximetry Value=92.0 Units= % 11/28/2023 8302-2 [facility] Height Value=62.0 Units=Inches 11/13/2023
[2025-03-13 12:20] LABS: Appearance Urine Slightly Cloudy (Clear); Bilirubin Urine Negative (Negative); Blood Urine Trace-intact (Negative); Color Urine Yellow (Yellow); Glucose Urine Negative (Negative); Ketones Urine Negative (Negative); Leukocyte Esterase Urine 2+ (Negative); Nitrite Urine Positive (Negative); Protein Urine Negative (Negative); Specific Gravity Urine <= 1.005 (1.000-1.030); Urobilinogen Urine 0.2 (0.2-1.0); pH Urine 5.5 (5.0-8.5)
[2025-03-13 12:35] LABS: WBC Urine 25-50 (0-5)
[2025-03-13 12:36] LABS: Bacteria Urine Moderate; Squamous Epithelial Cell Urine Few (None-Few)
[2025-03-13] MEDS: cefTRIAXone 1 GM VIAL IM (13:07)
[2025-03-13] MEDS: LIDOCAINE 1% 5 ml (pf) 5 ML VIAL 2.1 ML IM (13:07)
== END 2025-03-13 14:35 | disposition home or self-care (01) ==
PROVIDERS: Emergency Provider Emergency Medicine Emergency Medical Services; PCP Family Medicine
DX: N39.0 Urinary tract infection, site not specified (principal)
CPT/HCPCS: 81001; 87086; 96372; 99283; 99284; J0696

== ENCOUNTER 2025-03-29 09:18 | Outpatient (REF) | payer MEDICARE, OTHER, SELFPAY ==
[2025-03-29 13:04] LABS: Albumin* 4.1 g/dL (3.3-5.0); Chloride* 104 mmol/L (96-114); Potassium* 4.7 mmol/L (3.6-5.1); Sodium* 140 mmol/L (135-149)
[2025-03-29 13:06] LABS: Blood Urea Nitrogen* 18 mg/dL (7-30); Creatinine* 0.9 mg/dL (0.5-1.5); Estimated Glomerular Filt Rate 61 ml/min
[2025-03-29 13:07] LABS: Alanine Aminotransferase* 9 U/L (4-35); Alkaline Phosphatase* 63 U/L (40-150); Anion Gap 7 mEq/L (7-15); Aspartate Amino Transferase* 27 U/L (12-35); Bilirubin Total* 0.4 mg/dL (0.1-1.5); Calcium* 9.6 mg/dL (8.4-10.6); Carbon Dioxide* 29 mmol/L (20-32); Glucose* 104 mg/dL (60-115); Total Protein* 6.9 g/dL (6.0-8.3)
[2025-03-29 13:12] LABS: Hemoglobin A1C* 6.2 % (0-5.6)
== END 2025-03-29 09:19 | disposition home or self-care (01) ==
LOC: NPINS 09:18
PROVIDERS: PCP Family Medicine; Referring Provider Nurse Practitioner Gerontology; Visit Provider Nurse Practitioner Gerontology
DX: E11.9 Type 2 diabetes mellitus without complications (principal); E03.9 Hypothyroidism, unspecified
CPT/HCPCS: 80053; 83036; 84443

== ENCOUNTER 2025-04-28 20:34 | Outpatient (REF) | payer MEDICARE, OTHER, SELFPAY ==
[2025-04-28 20:56] LABS: Appearance Urine Clear (Clear)
== END 2025-04-28 20:35 | disposition home or self-care (01) ==
LOC: NPINS 20:34
PROVIDERS: PCP Family Medicine; Visit Provider Nurse Practitioner Gerontology
DX: N39.0 Urinary tract infection, site not specified (principal)
CPT/HCPCS: 81001; 81003; 87086